=== PATIENT | male | born 1950 | race Caucasian/White ===

== ENCOUNTER 2024-10-31 11:03 | Emergency (ER) | payer OTHER, SELFPAY ==
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
--- NOTE | ~2024-10-31 | XR_ITS ---
XR shoulder LT min 2V 10/31/2024 11:36 Indication: Left shoulder pain Procedure: 4 views left shoulder Comparison: No prior studies for comparison. Findings: No fracture, subluxation or dislocation. No significant soft tissue abnormality. No foreign bodies. There is anatomic alignment. Impression: 1: No acute fracture. Reviewed, dictated and finalized at location A. Impression: 1: No acute fracture.
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
[2024-10-31 11:07] VITALS: BP 169/70; PULSE 84; RESP 16; TEMP 36.6; O2SAT 96
--- OUTSIDE RECORDS SUMMARY | 2024-10-31 11:36 | XMS_ITS | Referral Summary ---
Author Organization [facility] Address [address] [place] [address] Care Team Providers Care Biomass Power Plant Manager Name Role Phone Juan Arzola MD Primary Care Provider [phone] Allergies Active Allergy Reactions Criticality Noted Date Comments Morphine Itching Low 06/28/2020 Medications pregabalin (LYRICA) 150 mg capsule take 1 capsule by oral route 2 times every day 0 0 07/06/20 16 Active Additional Information Patient taking differently:150 mgoral Every 8 hours, Trigeminal neuralgia, Informant: Self, Reported on 05/25/2022 cyclobenzaprine (FLEXERIL) 10 mg tablet Take 10 mg by mouth 3 (three) times a day as needed for muscle spasms Active HYDROcodone-aceta minophen (NORCO) 10-325 mg per tabletIndications :Pain Take 1 tablet by mouth every 6 (six) hours as needed for pain Active metFORMIN (GLUCOPHAGE) 1,000 mg tabletIndications :type 2 diabetes mellitus Take 1,000 mg by mouth 2 (two) times a day with meals Active amLODIPine (NORVASC) 10 mg tabletIndications :hypertension Take 10 mg by mouth every morning Active valsartan (DIOVAN) 320 mg tabletIndications :hypertension Take 320 mg by mouth every morning Active ipratropium-albut Estelle (COMBIVENT RESPIMAT) 20-100 mcg/actuation inhalerIndication s:Chronic Obstructive Pulmonary Disease with Bronchospasms Inhale 1 puff 4 (four) times a day Active albuterol 0.63 mg/3 mL nebulizer solutionIndicatio ns:Chronic Obstructive Pulmonary Disease Take 0.63 mg by nebulization every 6 (six) hours as needed for wheezing Active docusate sodium (COLACE) 100 mg capsuleIndication s:constipation Take 1 capsule (100 mg total) by mouth 2 (two) times a day 60 capsule 06/08/20 22 Active oxyCODONE (ROXICODONE) 10 mg tabletIndications :Pain Take 1 tablet (10 mg total) by mouth every 4 (four) hours 20 tablet 06/09/20 22 Active Active Problems Problem Noted Date Diagnosed Date Pain in left testicle 05/16/2022 Overview (05/16/2022): Added automatically from request for surgery [id number] Other male erectile dysfunction 07/14/2020 Trigeminal neuralgia 10/02/2012 Cervico-occipital neuralgia 10/02/2012 Chronic obstructive pulmonary disease 10/02/2012 Hypertension 10/02/2012 Resolved Problems Problem Noted Date Diagnosed Date Resolved Date Hydrocele 06/09/2020 07/14/2020 Encysted hydrocele 06/09/2020 0 Overview (06/09/2020): Added automatically from request for surgery [id number] Immunizations Immunization Administration Dates Next Due Influenza, Trivalent, IM (MDV) 05/17/2016 Social History Tobacco Use Types Packs/Day Years Used Date Smoking Tobacco: Former Cigarettes Q uit: 2002 Tobacco Cessation:Counseling Given: Not Answered Alcohol Use Standard Drinks/Week Comments No 0 (1 standard drink = 0.6 oz pur e alcohol) AUDIT-C Answer Date Recorded Q1: How often do you have a drink containing alcohol? Never 06/08/2022 Q2: How many drinks containi ng alcohol do you have on a typical day when you are drinking? Patient does not drink Q3: How often do you have si x or more drinks on one occasion? 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 Gender Identity Not on file Sexual Orientation Not on file Last Filed Vital Signs Vital Sign Reading Time Taken Comments Blood Pressure 142/75 06/08/2022 3:05 PM SENIOR MECHANICAL PROJECT ENGINEER Pulse 66 06/08/2022 3:05 PM SENIOR MECHANICAL PROJECT ENGINEER Temperature 36.6 C (97.9 F) 06/08/2022 3:05 PM SENIOR MECHANICAL PROJECT ENGINEER Respiratory Rate 14 06/08/2022 3:05 PM SENIOR MECHANICAL PROJECT ENGINEER Oxygen Saturation 96% 06/08/2022 3:05 PM SENIOR MECHANICAL PROJECT ENGINEER Inhaled Oxygen Concentration - - Weight 96.4 kg (212 lb 9.6 oz) 06/08/2022 8:53 A M SENIOR MECHANICAL PROJECT ENGINEER Height 188 cm (6' 2 ) 06/08/2022 8:53 AM SENIOR MECHANICAL PROJECT ENGINEER Body Mass Index 27.3 06/08/2022 8:53 AM SENIOR MECHANICAL PROJECT ENGINEER Plan of Treatment Not on file Procedures Procedure Name Priority Date/Time Associated Diagnosis Comments CT ABDOMEN PELVIS W CONTRAST ED 04/29/2022 6:12 PM CDT from Last 3 Months or Most Recently Relevant to Health Maintenance Results * CT Abdomen Pelvis W Contrast (04/29/2022 6:12 PM CDT) Anatomical Region Laterality Modality Body N/A Computed Tomogra phy 04/29/2022 7:12 PM CDT Impressions 04/29/2022 7:33 PM CDT 1. Partially imaged penis shows a loose segment of tubing along the right aspect of the base of the penis. Recommend correlation with point tenderness, surgical history, and symptoms. 2. Loose penile implant reservoir in the central abdomen without any evidence of vonnie reservoir inflammation or free fluid. Recommend correlation with outside imaging if available to assess for stability of the reservoir. 3. Reticulosis without areas of active diverticulitis. Dictated by: Parrish Deleon MD The radiology attending physician has personally reviewed this study, and had reviewed and/or edited this written report and agrees with it. Electronically signed by: Angelica Ferro M.D. Narrative 04/29/2022 7:33 PM CDT EXAMINATION: Computed tomography of the abdomen and pelvis with intravenous contrast HISTORY: 71-year-old status post penile implant removal, with groin pain TECHNIQUE: Transaxial computed tomographic images of the abdomen and pelvis were obtained with intravenous contrast according to the standard protocol after the uneventful administration of 94 mL Opti-Ray 350 intravenous contrast. COMPARISON: 05/04/2010 CT, 04/01/2008 CT FINDINGS: Atelectasis at the lung bases. No suspicious pulmonary nodule, pleural effusion, or pneumothorax. Heart size is normal. No pericardial effusion. No focal hepatic lesion. Focal fat near the falciform ligament. Cholecystectomy clips. An splenic veins are patent. Spleen is normal. Fatty replacement of the pancreas. Adrenals are normal. Bilateral parapelvic renal cysts, and one hemorrhagic cyst in the left kidney upper pole. There is no nephrolithiasis or hydronephrosis. Urinary bladder is normal. Prostate is enlarged. Colonic diverticulosis. Areas of stricturing at the rectosigmoid junction and focal areas of dilation at -863.6, unchanged from prior study dated 05/04/2010. No diverticulitis. There is a apparent decompressed penile implant reservoir in the central abdomen at series 2 image 155. There is no surrounding fat stranding or fluid. Bilateral fat-containing inguinal hernias. Partially imaged penis shows a tubing within the right aspect of the penis at series 2 image 254. There is a small hiatal hernia. Stomach and small bowel are normal in caliber without evidence of bowel obstruction. No abdominal or pelvic lymphadenopathy. No pneumoperitoneum Mild to moderate calcified and noncalcified atherosclerotic plaque of the nonaneurysmal abdominal aorta.. Aorta branches are patent.. Appendix is not visualized. No suspicious osseous lesion. Degenerative changes in the spine. Procedure Note Angelica Ferro MD - 04/29/2022 EXAMINATION: Computed tomography of the abdomen and pelvis with intravenous contrast HISTORY: 71-year-old status post penile implant removal, with groin pain TECHNIQUE: Transaxial computed tomographic images of the abdomen and pelvis were obtained with intravenous contrast according to the standard protocol after the uneventful administration of 94 mL Opti-Ray 350 intravenous contrast. COMPARISON: 05/04/2010 CT, 04/01/2008 CT FINDINGS: Atelectasis at the lung bases. No suspicious pulmonary nodule, pleural effusion, or pneumothorax. Heart size is normal. No pericardial effusion. No focal hepatic lesion. Focal fat near the falciform ligament. Cholecystectomy clips. An splenic veins are patent. Spleen is normal. Fatty replacement of the pancreas. Adrenals are normal. Bilateral parapelvic renal cysts, and one hemorrhagic cyst in the left kidney upper pole. There is no nephrolithiasis or hydronephrosis. Urinary bladder is normal. Prostate is enlarged. Colonic diverticulosis. Areas of stricturing at the rectosigmoid junction and focal areas of dilation at -863.6, unchanged from prior study dated 05/04/2010. No diverticulitis. There is a apparent decompressed penile implant reservoir in the central abdomen at series 2 image 155. There is no surrounding fat stranding or fluid. Bilateral fat-containing inguinal hernias. Partially imaged penis shows a tubing within the right aspect of the penis at series 2 image 254. There is a small hiatal hernia. Stomach and small bowel are normal in caliber without evidence of bowel obstruction. No abdominal or pelvic lymphadenopathy. No pneumoperitoneum Mild to moderate calcified and noncalcified atherosclerotic plaque of the nonaneurysmal abdominal aorta.. Aorta branches are patent.. Appendix is not visualized. No suspicious osseous lesion. Degenerative changes in the spine. IMPRESSION: 1. Partially imaged penis shows a loose segment of tubing along the right aspect of the base of the penis. Recommend correlation with point tenderness, surgical history, and symptoms. 2. Loose penile implant reservoir in the central abdomen without any evidence of vonnie reservoir inflammation or free fluid. Recommend correlation with outside imaging if available to assess for stability of the reservoir. 3. Reticulosis without areas of active diverticulitis. Dictated by: Parrish Deleon MD The radiology attending physician has personally reviewed this study, and had reviewed and/or edited this written report and agrees with it. Electronically signed by: Angelica Ferro M.D. Rebeca Vann MD IMG CT PROCEDURES Final Resu lt from Last 3 Months or Most Recently Relevant to Health Maintenance Insurance [place] [employer] COMM[employer]ITY CARE MEDICARE COMMUNITY CARE Member Subscriber Plan / Payer ( fective 1998-Present) Name:Alek Evans Sr. Relation to Subscriber:Self Name:Alek Evans Sr. Payer ID:[id number] Group ID:Not on file Type:[employer] Address: [place] [id number] Care Teams Biomass Power Plant Manager Relationship Specialty Start Date End Date Juan Arzola MD [address] [address] PCP - General Internal Medicine 10/1/22
--- OUTSIDE RECORDS SUMMARY | 2024-10-31 11:36 | XMS_ITS | CONTINUITY OF CARE DOCUMENT ---
Author Name austen boyce Address Unknown Organization [facility] Address [address] [place] [address] Phone [phone] Care Team Providers Care Coldfusion Name Role Phone Oniel BRAR, Rosanne Unavailable [phone] INSURANCE PROVIDERS Payer name Policy type / Coverage type [place] red republican ID [place] MED[place] Medicare [id number]
--- OUTSIDE RECORDS SUMMARY | 2024-10-31 11:36 | XMS_ITS | Continuity of Care Document ---
Author Organization [facility] Address [address] [place] [address] [place] [address] Phone Care Team Providers Care Cna Per Diem Name Role Phone [employer] Unavailable Unavail able Sickchivo, Flavia Unavailable Unavailable Advance Directives Directive Yes / No Effective Date File Name No Information Encounters Encounter Description Practice Location Reason(s) For Visit Diagnoses Date Provider Providers Copied on Encounter [facility], [address], [place], [place], [id number], [place] tel:[phone] [facility] [place] No Information [address] [employer] [address], [address], [place], [place], [id number] , [place]. tel:[phone] Consulting Provider: Flavia Spears, [address] [place] [address], [address]. tel:[phone] Family History Family Member Type Diagnosis Age At Onset No Information Payers Payer name Insurance type Covered republican ID Authoriza tion(s) No Information Social History Type Description Quantity Date Captured Comments Sex Male Smoking Status No Information Chief Complaint And Reason For Visit No Information Reason For Referral Reason For Referral No Information History Of Present Illness Encounter Date Complaint History Of Prese nt Illness No Information Functional Status Date Functional Assessmen t No Information Instructions Date Instruction Additional Infor mation No Information Assessments Type Assessment Date No Information Patient Care Teams Name Effective Dates (start - stop) Status Members No Information
--- OUTSIDE RECORDS SUMMARY | 2024-10-31 11:36 | XMS_ITS | Clinical Summary ---
Author Organization [facility] Address [address] [place] [address] Care Team Providers Care Patent Clerk Name Role Phone Juan Arzola MD Primary Care Provider [phone] Allergies Active Allergy Reactions Criticality Noted Date [...] (05/16/2022): Added automatically from request for surgery [id number] Other male erectile dysfunction 07/14/2020 Trigeminal neuralgia 10/02/2012 Cervico-occipital neuralgia 10/02/2012 Chronic obstructive pulmonary disease 10/02/2012 Hypertension 10/02/2012 Resolved Problems Problem Noted Date Diagnosed Date Resolved Date Hydrocele 06/09/2020 07/14/2020 Encysted hydrocele 06/09/2020 0 Overview (06/09/2020): Added automatically from request for surgery [id number] Immunizations Immunization Administration Dates Next Due Influenza, Trivalent, IM (MDV) 05/17/2016 Surgical History Surgery Date Site/Laterality Comments TRANSURETHRAL RESECTION OF PROSTATE PROSTATE SURGERY APPENDECTOMY HERNIA REPAIR hiatal hernia repair COLONOSCOPY Medical History Medical History Date Comments Hypertension Type 2 diabetes mellitus (HCC) Seizures (HCC) Stroke (HCC) Encysted hydrocele 06/09/2020 Added automat ically from request for surgery [id number] Hydrocele 06/09/2020 Family History Medical History Relation Name Comments Hypertension Mother Hypertension; Anesthesia problems Neg Hx Relation Name Status Comments Mother Social History Tobacco Use Types Packs/Day Years Used Date Smoking Tobacco: Former Cigarettes Q uit: 2001 Tobacco Cessation:Counseling Given: Not Answered Alcohol Use [...] on file Legal Sex Male 12:08 PM 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 Gender Identity Not on file Sexual Orientation Not on file Obstetrics History Last Filed Vital Signs Vital Sign Reading Time Taken Comments Blood Pressure 142/75 06/08/2022 3:05 PM DIE SINKING MACHINE OPERATOR Pulse 66 06/08/2022 3:05 PM DIE SINKING MACHINE OPERATOR Temperature 36.6 C (97.9 F) 06/08/2022 3:05 PM DIE SINKING MACHINE OPERATOR Respiratory Rate 14 06/08/2022 3:05 PM DIE SINKING MACHINE OPERATOR Oxygen Saturation 96% 06/08/2022 3:05 PM DIE SINKING MACHINE OPERATOR Inhaled Oxygen Concentration - - Weight 96.4 kg (212 lb 9.6 oz) 06/08/2022 8:53 A M DIE SINKING MACHINE OPERATOR Height 188 cm (6' 2 ) 06/08/2022 8:53 AM DIE SINKING MACHINE OPERATOR Body Mass Index 27.3 06/08/2022 8:53 AM DIE SINKING MACHINE OPERATOR Plan of Treatment Health Maintenance Due Date Last Done Comments Depression Screening 1950 Hepatitis C Screening 1950 DTaP/Tdap/Td Vaccine (1 - Tdap) 1959 Hepatitis B Screening 1966 Zoster Vaccine (1 of 2) 1998 Well Visit 65+ 2013 Pneumococcal vaccine 65+ (2 of 2 - PPSV23) 08/02/2018 06/07/2018 Fall Risk Assessment 06/08/2023 06/08/2022 Influenza Vaccine (#1) 2024 04/15/2020, 2015 Abdominal Aortic Aneurysm (AAA) Screen Completed Procedures Procedure Name Priority Date/Time Associated Diagnosis [...] Most Recently Relevant to Health Maintenance Insurance MEDICARE [place] [employer] Care Teams Patent Clerk Relationship Specialty Start Date End Date Juan Arzola MD [address] [place] [address] PCP - General Internal Medicine 04/29/22
--- OUTSIDE RECORDS SUMMARY | 2024-10-31 11:36 | XMS_ITS | Encounter Summary ---
Author Organization [facility] Address [address] [place] [address] Phone Care Team Providers Care Ground Service Equipment Mechanic Name Role Phone Juan Arzola MD Primary Care Provider [phone]- [phone] Encounter Details Date Type Department Care Team (Late st Contact Info) Description 08/07/2022 Telephone [facility] Urology [address] [place] [address] Medical Office Building [address] [place] [address] Fide Vazquez Social History Tobacco Use Types Packs/Day Years Used Date Smoking Tobacco: Former Cigarettes Q uit: 2002 Alcohol Use Standard Drinks/Week Comments No 0 [...] on file Legal Sex Male 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
--- OUTSIDE RECORDS SUMMARY | 2024-10-31 11:36 | XMS_ITS | Clinical Summary ---
Author Organization [facility] Address [address] [place] [address] Phone Care Team Providers Care Surgical Services Coordinator Name Role Phone Unavailable Primary Care Provider Unavailabl e Allergies No known active allergies Medications albuterol (PROVENTIL,VENTOL IN) 0.63 mg/3 mL Solution for Nebulization Take 0.63 mg by inhalation. Active amLODIPine (NORVASC) 10 mg tablet Take 10 mg by mouth. Active aspirin (ECOTRIN EC) 81 mg Tablet, Delayed Release (E.C.) 162 mg. 3 Active azithromycin (ZITHROMAX) 250 mg tablet 250 mg. 3 Active Ciclopirox 8 % Solution APPLY LIGHTLY TO AFFECTED AREA(S) ONCE A DAY (THIN COAT TO THICK NAILS - FILE DOWN AFTER 1 WEEK) (EXTERNAL USE ONLY) 3 Active codeine-guaiFENes in (ROBITUSSIN-AC) 10-100 mg/5 mL Liquid TAKE 10 ML BY MOUTH FOUR TIMES A DAY NEEDED FOR COUGH 3 Active cyclobenzaprine (FLEXERIL) 10 mg tablet Take 10 mg by mouth. Active HYDROcodone-aceta minophen (NORCO) 10-325 mg Tablet Take 1 Tablet by mouth 3 times daily. Active metFORMIN (GLUCOPHAGE) 1,000 mg tablet Take 1,000 mg by mouth 2 times daily with meals. Active Active Problems Problem Noted Date Diagnosed Date Non-recurrent bilateral ingu inal hernia without obstruction or gangrene 09/12/2022 Social History Tobacco Use Types Packs/Day Years Used Date Smoking Tobacco: Former Cigarettes Smokeless Tobacco: Never Tobacco Cessation:Counseling Given: Not Answered Alcohol Use Standard Drinks/Week Comments Never 0 (1 standard drink = 0.6 oz pur e alcohol) Food Insecurity Answer Date Recorded Social/Environmental Concerns No concerns Transportation Needs Answer Date Record ed Social/Environmental Concerns No concerns Housing Stability Answer Date Recorded Social/Environmental Concerns No concerns Utility Needs Answer Date Recorded Social/Environmental Concerns No concerns Sex and Gender Information Value Date Recorded Sex Assigned at Not on file Legal Sex Male 11:47 PM CDT Gender Identity Not on file Sexual Orientation Not on file Last Filed Vital Signs Vital Sign Reading Time Taken Comments Blood Pressure 133/70 09/12/2022 3:56 PM RESIDENTIAL SUPPORT WORKER Pulse - - Temperature - - Respiratory Rate 18 08/15/2022 10:29 AM RESIDENTIAL SUPPORT WORKER Oxygen Saturation - - Inhaled Oxygen Concentration - - Weight 98 kg (216 lb) 10/18/2022 1:36 PM CDT Height 188 cm (6' 2 ) 10/18/2022 1:36 PM CDT Body Mass Index 27.73 10/18/2022 1:36 PM CDT Plan of Treatment Health Maintenance Due Date Last Done Comments DIABETES ANNUAL FOOT EXAM 1966 DIABETES HBA1C Q 6 MONTHS 1966 DIABETES MICROALBUMIN ANNUAL SCREEN 1966 LDL CHOLESTEROL ANNUAL 1966 DIABETES ANNUAL RETINAL EXAM 09/08/202204/2022, 09/07/2021, 08/04/2021 RSV VACCINE (60+ or ) (1 - 1-dose 75+ series) 2023 INFLUENZA VACCINE (#1) 2024 , 04/23/2021, 05/15/2019, Additional history exists DTAP/TDAP/TD VACCINES (3 - T d or Tdap) 11/05/2030 11/05/2020, 08/17/2011, 11/19/2001 PNEUMOCOCCAL VACCINE 50+ YEARS Completed 0 11/09/2015, 11/13/2014, 07/30/2004 ZOSTER VACCINE Completed 09/25/2019, 11/27, 11/06/2008 COLORECTAL SCREENING Discontinued 04/18/2022 Colorectal Cancer Screening Discontinued FIT-DNA Q 3 years Discontinued FIT/FOBT Q 1 year Discontinued Flex Sig/CT Colonography Q 5 years Discontinued Insurance [facility] [place] [address] [place] [address] [employer]
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
--- OUTSIDE RECORDS SUMMARY | 2024-10-31 12:09 | XMS_ITS | Continuity of Care Document ---
Author Organization [facility] Address [address] [place] [address] [place] [address] Phone Care Team Providers Care Nail Sticker Name Role Phone [facility] [employer] Unavailable Unavail able Sickchivo, Flavia Unavailable Unavailable Advance Directives Directive Yes / No Effective Date File Name No Information Encounters Encounter Description Practice Location Reason(s) For Visit Diagnoses Date Provider Providers Copied on Encounter [facility], [address], [place], [place], [id number], [place] tel:[phone] [facility] No Information [address] [facility] [employer] [address], [address], [place], [place], [id number] , [place]. tel:[phone] Consulting Provider: Flavia Spears, [address] [place] [address], [address]. tel:[phone] Family History Family Member Type Diagnosis Age At Onset No Information Payers Payer name Insurance type Covered alliance party ID Authoriza tion(s) No Information Social History [...]
--- OUTSIDE RECORDS SUMMARY | 2024-10-31 12:09 | XMS_ITS | Encounter Summary ---
Author Organization [facility] Address [address] [place] [address] Phone Care Team Providers Care Professor Of Kinesiology Name Role Phone Juan Arzola MD Primary Care Provider [phone]- [phone] Encounter Details Date Type Department Care Team (Late st Contact Info) Description 08/07/2022 Telephone [facility]) - [facility] Urology [id number] [place] [address] Medical Office Building [address] [place] [address] Fide Vazquez Social History Tobacco [...] on file Legal Sex Male 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
--- OUTSIDE RECORDS SUMMARY | 2024-10-31 12:09 | XMS_ITS | Clinical Summary ---
Author Organization [facility] Address [address] [place] [address] Phone Care Team Providers Care Bulk Gas Specialist Name Role Phone Unavailable Primary Care Provider [...] Comments Blood Pressure 133/70 09/12/2022 3:56 PM LAW OFFICE MANAGER Pulse - - Temperature - - Respiratory Rate 18 08/15/2022 10:29 AM LAW OFFICE MANAGER Oxygen Saturation - - Inhaled Oxygen Concentration [...] Q 5 years Discontinued Insurance [facility] COMMUNITY C[facility] [place] [address] [place] [address] OPT[place]
--- OUTSIDE RECORDS SUMMARY | 2024-10-31 12:09 | XMS_ITS | CONTINUITY OF CARE DOCUMENT ---
Author Name austen boyce Address Unknown Organization [facility] Address [address] [place] [address] Phone [phone] Care Team Providers Care Baker Name Role Phone Oniel BRAR, Rosanne Unavailable INSURANCE PROVIDERS Payer name Policy type / Coverage type [place] [employer] ID [place] MEDIC[place] Medicare [id number]
--- OUTSIDE RECORDS SUMMARY | 2024-10-31 12:09 | XMS_ITS | Clinical Summary ---
Author Organization [facility] Address [address] [place] [address] Care Team Providers Care It Infrastructure Specialist Name Role Phone Juan Arzola MD Primary Care Provider [phone]- [phone] Allergies Active Allergy Reactions Criticality Noted Date [...] (05/16/2022): Added automatically from request for surgery [id number] Other male erectile dysfunction 07/14/2020 Trigeminal neuralgia 10/02/2012 Cervico-occipital neuralgia 10/02/2012 Chronic obstructive pulmonary disease 10/02/2012 Hypertension 10/02/2012 Resolved Problems Problem Noted Date Diagnosed Date Resolved Date Hydrocele 06/09/2020 07/14/2020 Encysted hydrocele 06/09/2020 0 Overview (06/09/2020): Added automatically from request for surgery [id number] Immunizations Immunization Administration Dates Next Due Influenza, Trivalent, IM (MDV) 05/17/2016 Surgical History Surgery Date Site/Laterality Comments TRANSURETHRAL RESECTION OF PROSTATE PROSTATE SURGERY APPENDECTOMY HERNIA REPAIR hiatal hernia repair COLONOSCOPY Medical History Medical History Date Comments Hypertension Type 2 diabetes mellitus (HCC) Seizures (HCC) Stroke (HCC) Encysted hydrocele 06/09/2020 Added automat ically from request for surgery [id number] Hydrocele 06/09/2020 Family History Medical History Relation [...] on file Legal Sex Male 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 Gender Identity Not on file Sexual Orientation Not on file Obstetrics History Last Filed Vital Signs Vital Sign Reading Time Taken Comments Blood Pressure 142/75 06/08/2022 3:05 PM EMERGENCY DEPARTMENT TECHNICIAN Pulse 66 06/08/2022 3:05 PM EMERGENCY DEPARTMENT TECHNICIAN Temperature 36.6 C (97.9 F) 06/08/2022 3:05 PM EMERGENCY DEPARTMENT TECHNICIAN Respiratory Rate 14 06/08/2022 3:05 PM EMERGENCY DEPARTMENT TECHNICIAN Oxygen Saturation 96% 06/08/2022 3:05 PM EMERGENCY DEPARTMENT TECHNICIAN Inhaled Oxygen Concentration - - Weight 96.4 kg (212 lb 9.6 oz) 06/08/2022 8:53 A M EMERGENCY DEPARTMENT TECHNICIAN Height 188 cm (6' 2 ) 06/08/2022 8:53 AM EMERGENCY DEPARTMENT TECHNICIAN Body Mass Index 27.3 06/08/2022 8:53 AM EMERGENCY DEPARTMENT TECHNICIAN Plan of Treatment Health Maintenance Due Date [...] Recently Relevant to Health Maintenance Insurance [place]ICARE [place] Care Teams It Infrastructure Specialist Relationship Specialty Start Date End Date Juan Arzola MD [address] [place] [address] PCP - General Internal Medicine 04/29/22
--- OUTSIDE RECORDS SUMMARY | 2024-10-31 12:09 | XMS_ITS | Referral Summary ---
Author Organization [facility] Address [address] [place] [address] Care Team Providers Care Inspector Circuitry Negative Name Role Phone Juan Arzola MD Primary Care Provider [phone]- [phone] Allergies Active Allergy Reactions Criticality Noted Date [...] (05/16/2022): Added automatically from request for surgery [id number] Other male erectile dysfunction 07/14/2020 Trigeminal neuralgia 10/02/2012 Cervico-occipital neuralgia 10/02/2012 Chronic obstructive pulmonary disease 10/02/2012 Hypertension 10/02/2012 Resolved Problems Problem Noted Date Diagnosed Date Resolved Date Hydrocele 06/09/2020 07/14/2020 Encysted hydrocele 06/09/2020 0 Overview (06/09/2020): Added automatically from request for surgery [id number] Immunizations Immunization Administration Dates Next Due Influenza, [...] on file Legal Sex Male 12:08 PM COMMUNITY OUTREACH SPECIALIST Gender Identity Not on file Sexual Orientation Not on file Last Filed Vital Signs Vital Sign Reading Time Taken Comments Blood Pressure 142/75 06/08/2022 3:05 PM COMMUNITY OUTREACH SPECIALIST Pulse 66 06/08/2022 3:05 PM COMMUNITY OUTREACH SPECIALIST Temperature 36.6 C (97.9 F) 06/08/2022 3:05 PM COMMUNITY OUTREACH SPECIALIST Respiratory Rate 14 06/08/2022 3:05 PM COMMUNITY OUTREACH SPECIALIST Oxygen Saturation 96% 06/08/2022 3:05 PM COMMUNITY OUTREACH SPECIALIST Inhaled Oxygen Concentration - - Weight 96.4 kg (212 lb 9.6 oz) 06/08/2022 8:53 A M COMMUNITY OUTREACH SPECIALIST Height 188 cm (6' 2 ) 06/08/2022 8:53 AM COMMUNITY OUTREACH SPECIALIST Body Mass Index 27.3 06/08/2022 8:53 AM COMMUNITY OUTREACH SPECIALIST Plan of Treatment Not on file Procedures [...] Most Recently Relevant to Health Maintenance Insurance [place] [employer] [employer] COMM[place]ITY CARE MEDICARE COMMUNITY CARE Member Subscriber Plan / Payer ( fective 1998-Present) Name:Alek Evans Sr. Relation to Subscriber:Self Name:Alek Evans Sr. Payer ID:[id number] Group ID:Not on file Type:[employer] Address: [place] [id number] Care Teams Inspector Circuitry Negative Relationship Specialty Start Date End Date Juan Arzola MD [address] [place] [address] PCP - General Internal Medicine 10/1/22
== END 2024-10-31 13:55 | disposition home or self-care (01) ==
PROVIDERS: Emergency Provider Physician Assistant
DX: S22.42XA Multiple fractures of ribs, left side, initial encounter for closed fracture (principal); S16.1XXA Strain of muscle, fascia and tendon at neck level, initial encounter; S46.912A Strain of unspecified muscle, fascia and tendon at shoulder and upper arm level, left arm, initial encounter; N28.9 Disorder of kidney and ureter, unspecified; Z79.82 Long term (current) use of aspirin; M47.812 Spondylosis without myelopathy or radiculopathy, cervical region; M47.814 Spondylosis without myelopathy or radiculopathy, thoracic region; G93.89 Other specified disorders of brain; J43.9 Emphysema, unspecified; V43.53XA Car driver injured in collision with pick-up truck in traffic accident, initial encounter
CPT/HCPCS: 70450; 71250; 72125; 72128; 73030; 99284

== ENCOUNTER 2024-11-02 10:42 | Emergency (ER) | payer SELFPAY ==
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
--- OUTSIDE RECORDS SUMMARY | 2024-11-02 10:45 | XMS_ITS | Continuity of Care Document ---
Author Organization [facility] Address [address] [place] [address] [place] [address] Phone Care Team Providers Care Tower Attendant Name Role Phone [facility] [employer] Unavailable Unavail able Sickchivo, Flavia Unavailable Unavailable Advance Directives Directive Yes / No Effective Date File Name No Information Encounters Encounter Description Practice Location Reason(s) For Visit Diagnoses Date Provider Providers Copied on Encounter [facility], [address], [place], [place], [id number], [place] tel:[phone] [facility] [place] No Information [address] [facility] [address] [facility], [address], [place], [place], [id number] , [place]. tel:[phone] Consulting Provider: Flavia Spears, [address] [place] [address], [address]. tel:[phone] Family History Family Member Type Diagnosis Age [...]
--- OUTSIDE RECORDS SUMMARY | 2024-11-02 10:45 | XMS_ITS | Encounter Summary ---
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
--- OUTSIDE RECORDS SUMMARY | 2024-11-02 10:45 | XMS_ITS | CONTINUITY OF CARE DOCUMENT ---
Author Name austen boyce Address Unknown Organization [facility] Address [address] [facility] [address] [place] [address] Phone [phone] Care Team Providers Care Director Building Name Role Phone Oniel BRAR, Rosanne Unavailable INSURANCE PROVIDERS Payer name Policy type / Coverage type [place] red democrat ID [place] MED[place] Medicare [id number]
--- OUTSIDE RECORDS SUMMARY | 2024-11-02 10:45 | XMS_ITS | Referral Summary ---
Author Organization [facility] Address [address] [place] [address] Care Team Providers Care Cad Technician Name Role Phone Juan Arzola MD Primary Care Provider [phone]- [phone] Allergies Active Allergy Reactions Criticality Noted Date [...] (05/16/2022): Added automatically from request for surgery [id number] Other male erectile dysfunction 07/14/2020 Trigeminal neuralgia 10/02/2012 Cervico-occipital neuralgia 10/02/2012 Chronic obstructive pulmonary disease 10/02/2012 Hypertension 10/02/2012 Resolved Problems Problem Noted Date Diagnosed Date Resolved Date Hydrocele 06/09/2020 07/14/2020 Encysted hydrocele 06/09/2020 0 Overview (06/09/2020): Added automatically from request for surgery [id number] Immunizations Immunization Administration Dates Next Due Influenza, [...] on file Legal Sex Male 12:08 PM DIRECTOR PHARMACOLOGY Gender Identity Not on file Sexual Orientation Not on file Last Filed Vital Signs Vital Sign Reading Time Taken Comments Blood Pressure 142/75 06/08/2022 3:05 PM DIRECTOR PHARMACOLOGY Pulse 66 06/08/2022 3:05 PM DIRECTOR PHARMACOLOGY Temperature 36.6 C (97.9 F) 06/08/2022 3:05 PM DIRECTOR PHARMACOLOGY Respiratory Rate 14 06/08/2022 3:05 PM DIRECTOR PHARMACOLOGY Oxygen Saturation 96% 06/08/2022 3:05 PM DIRECTOR PHARMACOLOGY Inhaled Oxygen Concentration - - Weight 96.4 kg (212 lb 9.6 oz) 06/08/2022 8:53 A M DIRECTOR PHARMACOLOGY Height 188 cm (6' 2 ) 06/08/2022 8:53 AM DIRECTOR PHARMACOLOGY Body Mass Index 27.3 06/08/2022 8:53 AM DIRECTOR PHARMACOLOGY Plan of Treatment Not on file Procedures [...] Most Recently Relevant to Health Maintenance Insurance [place] [employer] COMMUNITY CARE MEDICARE COMMUNITY CARE Member Subscriber Plan / Payer ( fective 1998-Present) Name:Alek Evans Sr. Relation to Subscriber:Self Name:Alek Evans Sr. Payer ID:[id number] Group ID:Not on file Type:GroupCard Address: [place] [id number] Care Teams Cad Technician Relationship Specialty Start Date End Date Juan Arzola MD [address] [place] [address] PCP - General Internal Medicine 10/1/22
--- OUTSIDE RECORDS SUMMARY | 2024-11-02 10:45 | XMS_ITS | Clinical Summary ---
Author Organization [facility] Address [address] [place] [address] Phone Care Team Providers Care Link Machine Operator Name Role Phone Unavailable Primary Care Provider [...] Comments Blood Pressure 133/70 09/12/2022 3:56 PM PATCHER HELPER Pulse - - Temperature - - Respiratory Rate 18 08/15/2022 10:29 AM PATCHER HELPER Oxygen Saturation - - Inhaled Oxygen Concentration [...] Sig/CT Colonography Q 5 years Discontinued Insurance [facility] OFFICE OF COMMUNITY CARE [facility] [address] [place] [address] [address]
--- OUTSIDE RECORDS SUMMARY | 2024-11-02 10:45 | XMS_ITS | Clinical Summary ---
Author Organization [facility] Address [address] [place] [address] Care Team Providers Care Tool/Die Maker Name Role Phone Juan Arzola MD Primary Care Provider [phone]- [phone] Allergies Active Allergy Reactions Criticality Noted Date [...] (05/16/2022): Added automatically from request for surgery [id number] Other male erectile dysfunction 07/14/2020 Trigeminal neuralgia 10/02/2012 Cervico-occipital neuralgia 10/02/2012 Chronic obstructive pulmonary disease 10/02/2012 Hypertension 10/02/2012 Resolved Problems Problem Noted Date Diagnosed Date Resolved Date Hydrocele 06/09/2020 07/14/2020 Encysted hydrocele 06/09/2020 0 Overview (06/09/2020): Added automatically from request for surgery [id number] Immunizations Immunization Administration Dates Next Due Influenza, Trivalent, IM (MDV) 05/17/2016 Surgical History Surgery Date Site/Laterality Comments TRANSURETHRAL RESECTION OF PROSTATE PROSTATE SURGERY APPENDECTOMY HERNIA REPAIR hiatal hernia repair COLONOSCOPY Medical History Medical History Date Comments Hypertension Type 2 diabetes mellitus (HCC) Seizures (HCC) Stroke (HCC) Encysted hydrocele 06/09/2020 Added automat ically from request for surgery [id number] Hydrocele 06/09/2020 Family History Medical History Relation [...] on file Legal Sex Male 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 Gender Identity Not on file Sexual Orientation Not on file Obstetrics History Last Filed Vital Signs Vital Sign Reading Time Taken Comments Blood Pressure 142/75 06/08/2022 3:05 PM HEEL EDGE 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 Pulse 66 06/08/2022 3:05 PM HEEL EDGE 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 Temperature 36.6 C (97.9 F) 06/08/2022 3:05 PM HEEL EDGE 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 Respiratory Rate 14 06/08/2022 3:05 PM HEEL EDGE 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 Oxygen Saturation 96% 06/08/2022 3:05 PM HEEL EDGE 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 Inhaled Oxygen Concentration - - Weight 96.4 kg (212 lb 9.6 oz) 06/08/2022 8:53 A M HEEL EDGE 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 Height 188 cm (6' 2 ) 06/08/2022 8:53 AM HEEL EDGE 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 Body Mass Index 27.3 06/08/2022 8:53 AM HEEL EDGE 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 Plan of Treatment Health Maintenance Due Date [...] Recently Relevant to Health Maintenance Insurance MEDICARE [place] Care Teams Tool/Die Maker Relationship Specialty Start Date End Date Juan Arzola MD [address] [place] [address] PCP - General Internal Medicine 04/29/22
[2024-11-02 11:21] VITALS: BP 175/75; PULSE 102; RESP 16; TEMP 36.1; O2SAT 95
--- OUTSIDE RECORDS SUMMARY | 2024-11-02 11:51 | XMS_ITS | Encounter Summary ---
Author Name [facility] Address [address] [place] [address] Care Team Providers Care Cds Sales Advisor Name Role Phone NATALIO BRDIGES Primary Care Provider Unavail le Insurance Providers: All historical and current Section Date Range: From patient's date of to the date document was created. This section includes the names of all active insurance providers for the patient. Insurance Provider Type of Coverage Plan Name Start of Policy Coverage End of Policy Coverage Group Number Member ID Insurance Provider's Telephone Number Policy Cabello's Name Patient's Relationship to Policy Cabello MEDICARE (WNR) MEDICARE ([place]) PART B Oct 28, 2001 PART B [id number] [phone] Petra DUQUE PATIENT MEDICARE (WNR) MEDICARE (M) PART A Oct 28, 2001 PART A [id number] [phone] Petra DUQUE PATIENT MEDICARE (WNR) MEDICARE (M) PART A Oct 28, 2001 PART A [id number] [phone] Petra DUQUE PATIENT Selected Encounter This section includes the information on record at [place] for the Encounter. Date/Time Encounter Type Encounter Description Reason Provider Source Feb 11, 2024 10:00 AM COMPRE OPH EXAM EST PT 1/> OPTOMETRY ICD-10-CM H43.813 Vitreous degeneration, bilateral BRYANNAFERSSAYDAIS ON [facility] Encounter Template Text not used by [facility] Assessments - Encounter Diagnoses This section includes the primary and secondary diagnoses documented for the Encounter. Date/Time Primary/Secondary Diagnosis Diagnosis Name Provider Source Feb 11, 2024 03:45 PM PRIMARY Vitreous degeneration, bilateral IVN TO ON [facility] Feb 11, 2024 03:45 PM SECONDARY Age-related nuclear cataract, bilateral SCHAFERSALLIS ON [facility] Feb 11, 2024 03:45 PM SECONDARY Dry eye syndrome of bilateral lacrimal glands VIN TO ON [facility] Feb 11, 2024 03:45 PM SECONDARY Presbyopia VIN TO ON [facility] Feb 11, 2024 03:45 PM SECONDARY Round hole, left eye VIN TO ON [facility] Feb 11, 2024 03:45 PM SECONDARY Type 2 diabetes mellitus without complications VIN TO ON [facility] Plan of Treatment: Future Appointments (+ 6 months) and Future Tests (+/- 45 days) The Plan of Treatment section includes future care activities for the patient from all [place] treatmentfacilities. This section includes future appointments and future orders which are active, pending or scheduled. Future Appointments This section includes appointments that were scheduled to occur 6 months from the date of the Encounter, up to a maximum of 20 appointments. The data comes from all [place] treatment facilities. Appointment Date/Time Appointment Type Appointme nt Facility Name Feb 22, 2024 10:30 AM AMBULATORY - MEDICINE [facility] Feb 27, 2024 08:15 AM AMBULATORY - MEDICINE [facility] Mar 26, 2024 11:00 AM AMBULATORY - NONE . [facility] Mar 27, 2024 12:40 PM AMBULATORY - MEDICINE [facility] Apr 10, 2024 10:30 AM AMBULATORY - SURGERY . [facility] Apr 22, 2024 10:00 AM AMBULATORY - SURGERY [facility] May 02, 2024 09:00 AM AMBULATORY - NONE . [facility] May 06, 2024 03:30 PM AMBULATORY - MEDICINE [facility] May 19, 2024 11:00 AM AMBULATORY - MEDICINE [facility] May 22, 2024 09:30 AM AMBULATORY - SURGERY [facility] May 27, 2024 09:30 AM AMBULATORY - NONE . [facility] Jul 11, 2024 02:00 PM AMBULATORY - NONE [facility] Aug 07, 2024 07:30 AM AMBULATORY - NONE [facility] Active, Pending, and Scheduled Orders This section includes a listing of several types of active, pending, and scheduled orders, including clinic medications orders, diagnostic test orders, procedure orders and consult orders; where the start date of the order is 45 days before the date of the Encounter or 45 days after the date of theEncounter. The data comes from all [place] treatment facilities. Test Date/Time Test Type Test Details Facility Name Jan 15, 2024 12:00 AM Laboratory - Chemistry Order HGA 1C BLOOD [facility] Jan 15, 2024 12:00 AM Laboratory - Chemistry Order CBC BLOOD [facility] Social History: Smoking Status (Most current) and Tobacco Use (All prior to encounter date) This section includes the most current, and the historical, smoking and tobacco- related health factors from the [place] facility where the Encounter took place. Current Smoking Status This section includes the most current smoking, or tobacco-related health factor, from the [place] facility where the Encounter took place. Date/Time Current Smoking Status Comment Facil ity Oct 17, 2023 04:53 PM ORYX ADMIT TOBACCO SCREEN NO [facility] Tobacco Use History This section includes a history of the smoking, or tobacco-related health factors, that were collected on or before the date of the Encounter. The data comes from the [place] facility where the Encounter took place. Date/Time Smoking Status/Tobacco Use Comment F acility Oct 17, 2023 03:00 PM ORYX ADMIT TOBACCO SCREEN NO [facility] Dec 31, 2021 03:07 PM ORYX ADMIT TOBACCO SCREEN NO [facility] Apr 06, 2017 11:33 PM QUIT TOBACCO >7 YEARS AGO [facility] Mar 21, 2017 04:29 AM QUIT TOBACCO >7 YEARS AGO [facility] Jan 20, 2014 09:56 AM QUIT TOBACCO >7 YEARS AGO [facility] Jan 02, 2013 01:23 PM QUIT TOBACCO >7 YEARS AGO [facility] May 25, 2010 01:35 PM LIFETIME NON-USER OF TOBACCO [facility] Aug 17, 2009 01:04 PM QUIT TOBACCO >12 M O & <7 YRS AGO [facility] Sep 17, 2008 01:34 PM QUIT TOBACCO >12 M O & <7 YRS AGO [facility] Sep 20, 2006 10:57 AM QUIT TOBACCO >12 M O & <7 YRS AGO [facility] Jun 05, 2006 10:49 AM CURRENT NON-TOBACC O USER-HX OF USE [facility] Jun 05, 2006 10:49 AM TOBACCO TERMINATION STAGE [facility] Jul 14, 2005 11:00 AM CURRENT NON-TOBACC O USER-HX OF USE [facility] Jul 14, 2005 11:00 AM TOBACCO TERMINATION STAGE [facility] Oct 23, 2004 04:56 PM CURRENT NON-TOBACC O USER-HX OF USE [facility] Oct 23, 2004 04:56 PM TOBACCO ACTION STAGE [facility] Apr 07, 2004 10:58 AM CURRENT NON-TOBACC O USER-HX OF USE [facility] Apr 07, 2004 10:58 AM TOBACCO MAINTENANCE STAGE [facility] December 18, 2002 11:17 AM CURRENT TOBACCO USER [facility] December 18, 2002 11:17 AM TOBACCO USE [facility] Apr 07, 2002 02:25 PM CURRENT NON-TOBACC O USER-RECENTLY QUIT quit 3 mo ago [facility] Apr 07, 2002 02:25 PM TOBACCO USE quit 3 mo ago [facility] Nov 19, 2001 10:50 AM CURRENT TOBACCO USER [facility] Jul 16, 2001 08:35 AM CURRENT TOBACCO USER [facility] Jun 18, 2001 08:31 AM CURRENT TOBACCO USER [facility] Jun 18, 2001 08:31 AM TOBACCO USE [facility] Advance Directives: All historical and current Section Date Range: From patient's date of to the date document was created. This section includes ALL of a patient's completed or amended [place] Advance and Rescinded Directives. The entries below indicate that a directive exists for the patient, but an actual copy is not included with this document. The data comes from all [place] facilities. Date Advance Directives Provider Source Feb 18, 2018 ADVANCE DIRECTIVE DISCUSSION EMMETT CAMILO [facility] Radiology Reports: +/- 30 days of the encounter Radiology Reports For cases when an order for radiology services may have been completed prior to the date of the Encounter, the report list includes the Radiology Reports that were completed up to 30 days before dateof the Encounter. For cases when an order for radiology services may have been completed after the date of the Encounter, the report list also includes the Radiology Reports that were completed up to30 days after date of the Encounter. The data comes from all [place] treatment facilities. Date/Time Radiology Report Provider Source Jan 14, 2024 07:59 AM [place] MYOCARDIAL P SP ECT STRESS/REST-P: MAURILIO DUQUE [id number] -[id number] M Ex Date: JAN 14, 2024@07:59 Req Phys: JEANNETTE PEÑA Loc: [facility] (Req'g Img Loc: [facility] Service: [address] [address] (Case 180 COMPLETE) [place] MYOCARDIAL PERF SPECT STRESS/R([place] Detailed) CPT:27053 Reason for Study: CHEST PAIN (Case 181 COMPLETE) TC-99M TETROFOSMIN (MYOVIEW) ([place] Detailed) CPT:A9502 (Case 182 COMPLETE) TC-99M TETROFOSMIN (MYOVIEW), PE([place] Detailed) CPT:A9502 (Case 183 COMPLETE) NON-HEU TC-99M ADD-ON PER STUDY D([place] Detailed) CPT:Q9969 (Case 347 COMPLETE) REGADENOSON INJECTION ([place] Detailed) CPT:J2785 Clinical History: CHEST PAIN Report Status: Verified Date Reported: JAN 14, 2024 Date Verified: JAN 14, 2024 Full Time E-Sig:/ES/Bill Fox MD,PhD Report: PATIENT NAME: MAURILIO DUQUE CASE #: [id number], [id number], [id number], [id number], [id number] EXAMINATION: Rest/Lexiscan Stress Gated SPECT Myocardial Imaging HISTORY: 73-year-old male with history of chest discomfort TECHNIQUE: A dose of 10.5 mCi Tc-99m tetrofosmin was administered IV at rest, and SPECT myocardial imaging was performed in the supine position. Lexiscan administration was performed under physician supervision. Cardiology will report on EKG findings and patient's stress tolerance. A dose of 31.3 mCi Tc-99m tetrofosmin was administered IV at peak stress, and gated SPECT myocardial imaging was performed in the supine position. Non-gated prone stress imaging was also performed. COMPARISON: 07/11/2021 FINDINGS: The image quality is technically excellent with no significant patient motion or unusual soft tissue attenuation. The left ventricle is normal in size at stress and rest. The stress SPECT images show a normal pattern of myocardial perfusion. There is no significant change on rest imaging.. The gated images demonstrate normal myocardial thickening and normal wall motion. The calculated left ventricular ejection fraction is 71%. Impression: 1. Normal SPECT myocardial imaging without evidence of stress-induced ischemia. 2. Normal left ventricle contractility with LVEF of 71%. Diagnostic code: 1000. Dictated by Ashwin Chacon DO (supervisor residential) IBill, have reviewed the images and report and concur with these findings. Primary Interpreting Staff: Bill Fox MD,PhD, Nuclear Medicine Physician (Full Time) Primary Interpreting Resident: ASHWIN CHACON, supervisor residential /[facility] Encounter Notes: All associated encounter notes This section contains the clinical notes associated to the Encounter. Date/Time Encounter Note(s) Provider Source Feb 11, 2024 09:59 AM OPTOMETRY NOTE: LOCAL TITLE: OPTOMETRY NOTE STANDARD TITLE: OPTOMETRY NOTE DATE OF NOTE: FEB 11, 2024@09:59 ENTRY DATE: FEB 11, 2024@09:59:21 AUTHOR: BALTAZAR TO COSIGNER: URGENCY: STATUS: COMPLETED Last seen: 09/07/21 Reason for visit: ocular health exam CC: 1. hx of PVD OD still notes flaoters, very rare flash longstanding overall stable 2. Vision is fluctuates per pt gets blurry distance and near with habitual glasses 3. Type 2 Diabetic Dx'd: ~2017 bg control stable per pt no history of retinpoathy Ocular Meds: (+) Refresh BID OU Ocular ROS: (+) Operculated retinal hole OS (+) Immature cataract OU (+) OS cyst removal x 07/2021 *chronic, gradually enlarging cyst *Exam consistent with keratin cysts Family OcHX: (-) blindness (-) glaucoma (-) AMD (-) RD Problem list, medications and allergies reviewed: CPRS Serology for Diabetes GLUCOSE 136 H mg/dL 01/11/2024 09:10 HGA1C 5.8 % 09/12/2022 11:13 Cardiovascular BP: 155/75 (01/03/2024 09:54) Pulse: 73 (01/03/2024 09:54) VISUAL ACUITY: With Correction, Distance Visual Acuity OD: 20/40 OS: 20/20- Pupils: PERRL OU (-)APD Confrontation: FTFC OU Extra-Ocular Muscles: Full OU Externals/Adnexa: Unremarkable OU Manifest Refraction: 08/04/21, see acuity above for today's vision OD: plano -1.00 x108 20/20 OS: +1.00 -1.75 x080 20/20 Add: +2.50 Refraction 02/11/24 OD: +0.75 -1.00 x115 20/20- OS: +0.75 -2.00 x085 20/20-1 Add: +2.50 SLIT LAMP EXAMINATION Lids/Lashes/Lacrimal mild MGD OU, saponification OU thin tear pantoja OU Conjunctiva/Sclera White/quiet OU Cornea tr diffuse inferior SPK OU Ant Chamber Deep and quiet OU Iris Normal, (-)NVI OU Lens Gr 1-2 NS cataract OU Intraocular Pressure History (Fluress/Goldmann): Date OD OS Time Meds 11/15/2020 19 18 0928 none 08/04/21 17 16 1254 none 09/07/21 16 16 1002 none 02/11/24 16 16 1016 none Additional testing: OCT MACULA: 08/04/21 OD: normal foveal contour, no SRF/IRF OS: normal foveal contour, mild VMA, no SRF/IRF RETINAL EVALUATION: dilation warning, both eyes, 1% Tropicamide and 2.5% Phenylephrine 09/07/21 Optic Nerve: OD: 0.20 CDR Flat, pink, distinct (-)NVD OS: 0.30 CDR Flat, pink, distinct (-)NVD Vessels: 2/3 OU, (-)NVE OU Macula: OD: Flat, clear (-)CSME OS: Flat, clear (-)CSME Periphery: OD: Flat and attached OS: Flat and attached, small operculated hole ~4-5 oclock, no fluid Vitreous: (+)PVD OD, (+)Syneresis OS Assessment/Plan: 02/11/2024 1.Vitreous Degeneration OU - hx of PVD OD - pt reports floaters, has longstanding rare flash OD, stable per pt - no holes/tears/detachments noted on exam OU today - reviewed signs/symptoms of RD - increase in floaters, flashes, curtain - advised pt to return immediately if notes - monitor with annual DFE 2. Operculated Retinal Hole, OS - Longstanding - No fluid noted today - Retina intact 360 OS - ed. pt on signs/symptoms of RD - pt to return immediately if notes - monitor with annual DFE 3. Diabetes without retinopathy, OU - last hgA1c was 5.8 - (-)DME OU - advised pt on importance of tight bg control - follow with annual DFE 4. s/p Cyst removal, OS - Last seen with Oculoplastics 09/08/21 - Next appt scheduled 09/08/21 - Continue all f/u's with Oculoplastics 5. Dry Eye Syndrome OU - current treatment: refresh - Continue Refresh ATs BID-QID OU - montior 6. Cataracts, OU - Not visually significant - ed. pt on findings - monitor 7. Presbyopia and refractive error, OU - increase in BVA with refraction - order new glasses Educate and monitor, discussed all exam findings RTC: 12 months with CEE, sooner with changes /es/ BALTAZAR TO, OD Staff Physician, Optometry Signed: 02/11/2024 15:45 BALTAZAR TO [facility]
--- OUTSIDE RECORDS SUMMARY | 2024-11-02 11:51 | XMS_ITS | Continuity of Care Document ---
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 It does not include entries that were removed or entered in error. Problem Status Onset Date Problem Type Date of Resolution Comments Source Benign essential hypertension (SNOMED CT 6814688) Active Condition [facility] Candidiasis of the esophagus Active Condition [facility] Cervicalgia Active Condition [facility] Chest pain Active Condition [facility] Chronic obstructive lung disease (SNOMED CT 32285417) Active Condition [facility] Diabetes Mellitus Type 2 ([facility] 04193152) Active Condition [facility] Exposure to potentially hazardous substance Active Condition [facility] GERD - Gastro-esophagea l reflux disease (SNOMED CT 818455119) Active Condition [facility] Hip joint pain Active Condition [facility] Inguinal hernia Active Condition Aug 26, 2021 Entered By: NATALIO BRIDGES Comment: right sided. [facility] Inguinal hernia Active Condition [facility] Intention tremor Active Condition [facility] Knee pain (SNOMED CT 13902312) Active Condition [facility] LBP - Low back pain (SNOMED CT 937260862) Active Condition [facility] Left trigeminal neuralgia (SNOMED CT 6595400819694391 3) Active Condition Oct 24, 2007 En tered By: BRYAN PURVIS Comment: s/p gamaknife surgery [facility] Long-term current use of opiate analgesic drug Active Condition [facility] Migraine Active Condition [facility] Multiple solar keratoses Active Condition [facility] Orchitis and epididymitis Active Condition [facility] Parotitis Active Condition [facility] Scrotal pain Active Condition [facility] Acute sinusitis (ICD-9-CM 461.9) Inactive Condition 08/17/2011 [facility] Allergic Rhinitis Inactive Condition 06/30/2021 [facility] AVM -of cerebellar vessels-s/p surgery X6 Inactive Condition 06/30/2021 [facility] CAD with H/o MA in 1988 , No intervention done Inactive Condition 06/30/2021 [facility] Elevated PSA Inactive Condition 06/30/2021Sep Entered By: BRYAN PURVIS Comment: beningn biopsies in 2008 Entered By: BRYAN PURVIS Comment: S/P TURP in 12/05 [facility] Herpes Zoster 04/2014 Inactive Condition 11/13/2014 [facility] Hyperglycemia * (ICD-9-CM 790.6) Inactive Condition 06/30/2021 [facility] 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) Inactive Condition 06/30/2021 [facility] Plantar fasciitis (SNOMED CT 090086109) Inactive Condition 06/30/2021 [facility] Postherpetic neuralgia (SNOMED CT 9588309) Inactive Condition 06/30/2021 Nov 13, 2014 En tered By: BRYAN PURVIS Comment: herpes zoter 04/2014 [facility] Reading disorder (DSM-IV 315.00/ICD-9-CM 315.00) Inactive Condition 06/30/2021 December 13, 2009 En tered By: SUE HAMILTON Comment: See 12/06/2009 Neuropsychological Testing Consult [facility] Diagnosis: ICD-10-CM J44.9 Chronic obstructive pulmonary disease, unspecified Active Diagnosis [facility] Diagnosis: ICD-10-CM K02.52 Dental caries on pit and fissure surfc penetrat into dentin Active Diagnosis [facility] Diagnosis: ICD-10-CM Z01.20 Encounter for dental exam and cleaning w/o abnormal findings Active Diagnosis [facility] Diagnosis: ICD-10-CM K02.7 Dental root caries Active Diagnosis [facility] Diagnosis: ICD-10-CM I10 Essential (primary) hypertension Active Diagnosis [facility] Diagnosis: ICD-10-CM K40.90 Unil inguinal hernia, w/o obst or gangr, not spcf as recur Active Diagnosis [facility] Admit Reason: S/P ROBTIC INJUINAL HERNIA Active Diagnosis [facility] Diagnosis: ICD-10-CM K40.91 Unilateral inguinal hernia, w/o obst or gangrene, recurrent Active Diagnosis [facility] Diagnosis: ICD-10-CM Z01.818 Encounter for other preprocedural examination Active Diagnosis [facility] Diagnosis: ICD-10-CM R42 Dizziness and giddiness Active Diagnosis [facility] Diagnosis: ICD-10-CM R06.02 Shortness of breath Active Diagnosis [facility] Diagnosis: ICD-10-CM H43.813 Vitreous degeneration, bilateral Active Diagnosis [facility] Diagnosis: ICD-10-CM R07.9 Chest pain, unspecified Active Diagnosis [facility] Diagnosis: ICD-10-CM I20.9 Angina pectoris, unspecified Active Diagnosis [facility] Diagnosis: ICD-10-CM B35.1 Tinea unguium Active Diagnosis [facility] Diagnosis: ICD-10-CM N50.82 Scrotal pain Active Diagnosis [facility] Diagnosis: ICD-10-CM R11.2 Nausea with vomiting, unspecified Active Diagnosis [facility] Diagnosis: ICD-10-CM R06.00 Dyspnea, unspecified Active Diagnosis [facility] Diagnosis: ICD-10-CM E11.40 Type 2 diabetes mellitus with diabetic neuropathy, unsp Active Diagnosis [facility] Diagnosis: ICD-10-CM R49.8 Other voice and resonance disorders Active Diagnosis [facility] Diagnosis: ICD-10-CM Z71.81 Spiritual or jew counseling Active Diagnosis [facility] Diagnosis: ICD-10-CM J44.1 Chronic obstructive pulmonary disease w (acute) exacerbation Active Diagnosis [facility] Admit Reason: COPD EXACERBATION Active Diagnosis [facility] Diagnosis: ICD-10-CM J18.9 Pneumonia, unspecified organism Active Diagnosis [facility] Diagnosis: ICD-10-CM R05.1 Acute cough Active Diagnosis [facility] Diagnosis: ICD-10-CM L72.0 Epidermal cyst Active Diagnosis [facility] Diagnosis: ICD-10-CM L57.0 Actinic keratosis Active Diagnosis [facility] Admit Reason: RIGHT INGUINAL MASS Active Diagnosis [facility] Diagnosis: ICD-10-CM K40.20 Bi inguinal hernia, w/o obst or gangrene, not spcf as recur Active Diagnosis [facility] Diagnosis: ICD-10-CM Z13.5 Encounter for screening for eye and ear disorders Active Diagnosis [facility] Diagnosis: ICD-10-CM L76.34 Postproc seroma of skin, subcu following other procedure Active Diagnosis [facility] Diagnosis: ICD-10-CM J06.9 Acute upper respiratory infection, unspecified Active Diagnosis [facility] Diagnosis: ICD-10-CM J20.9 Acute bronchitis, unspecified Active Diagnosis [facility] Diagnosis: ICD-10-CM Z23 Encounter for immunization Active Diagnosis [facility] Diagnosis: ICD-10-CM D17.9 Benign lipomatous neoplasm, unspecified Active Diagnosis [facility] Medications Combined list of outpatient medications from Department of Defense and [facility] Affairs facilities.Medications provided include 1) outpatient medications from the last 15 months, and 2) patient-reported medications. Medication Details Route Status Patient Instructions Prescription Expires Prescription Number Last Dispense Date Ordering Provider Order Date Order Qty Source ACETAMINOPH EN 325MG TAB TAKE TWO TABLETS BY MOUTH EVERY 6 HOURS FOR PAIN CAUTION: DO NOT EXCEED 4000MG PER DAY ACETAMIN OPHEN (APAP) FROM ALL MEDS. TAKE EVERY 6 HOURS SCHEDULE D FOR ONE DAY. THEN EVERY 6 HOURS NEEDED. ORAL DISCONT INUED 06/02/2024 [id number] 4 NEW SARMIENTO 2023 60 [facility] N ACETAMINOPH EN 325MG TAB TAKE TWO TABLETS BY MOUTH EVERY 6 HOURS NEEDED FOR PAIN. CAUTION: DO NOT EXCEED 4000MG PER DAY ACETAMIN OPHEN (APAP) FROM ALL MEDS. ORAL 06/18/2024 [id number] 4 NATALIO BRIDGES [address] [facility] ACETAMINOPH EN 325MG TAB TAKE TWO TABLETS BY MOUTH EVERY 6 HOURS NEEDED FOR PAIN CAUTION: DO NOT EXCEED 4000MG PER DAY ACETAMIN OPHEN (APAP) FROM ALL MEDS. PLEASE TAKE ROUND THE CLOCK FOR NEXT 3 DAYS EVERY 6 HOUR AND THEN NEEDED. CAUTION: DO NOT EXCEED 4000MG PER DAY ACETAMIN OPHEN (APAP) FROM ALL MEDS. PLEASE TAKE ROUND THE CLOCK FOR NEXT 3 DAYS EVERY 6 HOUR AND THEN NEEDED. ORAL 09/13/2023 [id number] 4 CRYSTAL SARMIENTO 2023 35 [facility]ISIO N ALBUTEROL 100MCG/IPRA TROPIUM BR 20MCG/SPRAY INHALER,ORA L,4GM INHALE 1 PUFF BY ORAL INHALATI ON FOUR TIMES A DAY DIRECTED RESPIR ATORY (INHAL ATION) DISCONT INUED BY PROVIDE R 03/20/2024 [id number] 4 NATALIO BRIDGES 2022 2 [facility] N ALBUTEROL SO4 0.083% INHL,3ML INHALE 1 VIAL (2.5MG/3 ML) BY NEBULIZA TION EVERY 6 HOURS DIRECTED NEBULI ZATION ACTIVE 10/31/2025 [id number] 5 NATALIO BRIDGES [address] [facility] ALBUTEROL SO4 0.083% INHL,3ML INHALE 1 VIAL (2.5MG/3 ML) BY NEBULIZA TION EVERY 6 HOURS DIRECTED NEBULI ZATION DISCONT INUED 10/02/2024 [id number] 4 NATALIO BRIDGES [address] [facility] ALBUTEROL SO4 90MCG/ACTUA T (CFC-F) INHL,ORAL,8 .5GM INHALE 1 PUFF ORAL INHALATI ON FOUR TIMES A DAY NEEDED SHAKE WELL. RINSE MOUTHPIE CE FREQUENT LY TO PREVENT CLOGGING . RESPIR ATORY (INHAL ATION) ACTIVE 11/14/2024 [id number] 5 LEWIS DEAN RRI 2023 1 [facility] N AMLODIPINE BESYLATE 10MG TAB TAKE ONE TABLET BY MOUTH ONCE A DAY FOR HEART/BL OOD PRESSURE ORAL ACTIVE 05/20/2025 [id number] 5 NATALIO BRIDGES [address] [facility] AMLODIPINE BESYLATE 10MG TAB TAKE ONE TABLET BY MOUTH ONCE A DAY FOR HEART/BL OOD PRESSURE ORAL DISCONT INUED 06/18/2024 [id number] 4 NATALIO BRIDGES [address] [facility] AMOXICILLIN TRIHYDRATE 875MG/CLAVU LANATE K 125MG TAB TAKE 1 TABLET BY MOUTH TWICE A DAY FOR ABDOMINA L INFECTIO N TAKE WITH FOOD. TAKE UNTIL GONE UNLESS OTHERWIS E DIRECTED . ORAL 09/13/2023 [id number] 4 ELSTER,ST EVEN 2023 20 [facility] DIVIS[facility] N ASPIRIN 81MG TAB,EC TAKE TWO TABLETS BY MOUTH ONCE A DAY FOR HEART OR CIRCULAT ION. TAKE WITH FOOD. ORAL ACTIVE 10/29/2025 [id number] 5 NATALIO BRIDGES [address] [facility] ASPIRIN 81MG TAB,EC TAKE TWO TABLETS BY MOUTH ONCE A DAY FOR HEART OR CIRCULAT ION. TAKE WITH FOOD. ORAL DISCONT INUED 08/31/2024 [id number] 5 NATALIO BRIDGES [address] [facility] AZITHROMYCI N 250MG TAB TAKE TWO TABLETS BY MOUTH ONCE A DAY FOR 1 DAY, THEN TAKE ONE TABLET ONCE A DAY FOR 4 DAYS FOR BRONCHIT IS (UNTIL GONE) ORAL 10/30/2023 [id number] 4 MICHELL NADIA 2023 6 [facility] DIV[facility] N BENZONATATE 100MG CAP TAKE ONE CAPSULE BY MOUTH THREE TIMES A DAY NEEDED FOR COUGH ORAL 10/30/2023 [id number] 4 CHRISALLNICHOL NADIA 2023 21 [facility] DIVISIO N BUDESONIDE 160/GLYCOPY R 9/FORMOTER 4.8MCG/ACT INHL,ORAL,1 0.7GM INHALE 2 PUFFS INHALATI ON TWICE A DAY DIRECTED FOR COPD (CLEAN INHALER FOLLOWED BY 2 PRIMING PUFFS ONCE WEEKLY) INHALA TION DISCONT INUED BY PROVIDE R 04/06/2024 [id number] 4 NATALIO BRIDGES 2022 3 [facility] DIV[facility] N CARBOXYMETH YLCELLULOSE NA 0.5% SOLN,OPH INSTILL 1 DROP IN BOTH EYES FOUR TIMES A DAY NEEDED FOR DRY EYE(S) OPHTHA LMIC 09/07/2024 [id number] 4 MICHAEL BROWN GAGE 2023 45 [facility] DIVISIO N CHLORHEXIDI NE GLUCONATE 4% LIQUID,TOP APPLY SMALL AMOUNT TO AFFECTED AREA(S) TWICE (WASH BODY THE EVENING BEFORE AND THE MORNING OF SURGERY; USE 1 BOTTLE FOR EACH EPISODE OF BATHING TO REDUCE SKIN BACTERIA ; AVOID CONTACT WITH FACE AND PRIVATES . DO NOT SWALLOW) (WASH BODY THE EVENING BEFORE AND THE MORNING OF SURGERY; USE 1 BOTTLE FOR EACH EPISODE OF BATHING TO REDUCE SKIN BACTERIA ; AVOID CONTACT WITH FACE AND PRIVATES . DO NOT SWALLOW) TOPICA L 05/22/2024 [id number] BROOKS 2023 240 [facility] DIVISIO N CHLORHEXIDI NE GLUCONATE 4% LIQUID,TOP APPLY MODERATE AMOUNT TO AFFECTED AREA(S) DIRECTED FOR SKIN DISINFEC TION FOR TOPICAL USE ONLY. AVOID CONTACT WITH EYES. TOPICA L 09/29/2023 [id number] 4 Petra ABRAHAM 2023 120 [facility] DIVISIO N CHOLECALCIF KRISTA 50MCG (2,000UNIT) TAB TAKE TWO TABLETS BY MOUTH ONCE A DAY FOR VITAMIN D DEFICIEN CY. ORAL ACTIVE 09/30/2025 [id number] 5 NATALIO BRIDGES [address] [facility] CHOLECALCIF KRISTA 50MCG (2,000UNIT) TAB TAKE TWO TABLETS BY MOUTH ONCE A DAY FOR VITAMIN D DEFICIEN CY. ORAL DISCONT INUED 08/31/2024 [id number] 4 NATALIO BRIDGES [address] [facility] CHOLECALCIF KRISTA 50MCG (2,000UNIT) TAB TAKE TWO TABLETS BY MOUTH ONCE A DAY FOR VITAMIN D DEFICIEN CY. ORAL DISCONT INUED 09/21/2023 [id number] 4 NATALIO BRIDGES [address] [facility] CICLOPIROX 8% SOLN,TOP APPLY LIGHTLY TO AFFECTED AREA(S) ONCE A DAY (THIN COAT TO THICK NAILS - FILE DOWN AFTER 1 WEEK) (EXTERNA L USE ONLY) TOPICA L 08/31/2024 [id number] 4 NATALIO BRIDGES [address] [facility] CYCLOBENZAP RINE HCL 10MG TAB TAKE ONE TABLET BY MOUTH THREE TIMES A DAY FOR MUSCLE SPASM MAY CAUSE DROWSINE SS. DO NOT DRINK ALCOHOL WHILE TAKING THIS MEDICATI ON. ORAL ACTIVE 01/25/2025 [id number] 4 NATALIO BRIDGES 2023 90 [facility] DIV[facility] N DICLOFENAC NA 1% GEL,TOP APPLY 2 GM TO AFFECTED AREA(S) FOUR TIMES A DAY FOR OSTEOART HRITIS DO NOT EXCEED MORE THAN 16 GRAMS DAILY TO ANY LOWER EXTREMIT Y JOINT. NOT MORE THAN 8 GRAMS DAILY TO ANY UPPER EXTREMIT Y JOINT. MAX 32GM/DAY OVER ALL JOINTS. (MEASURE DOSE WITH RULER ATTACHED INSIDE BOX) LEVI Trevizo 01/04/2024 [id number] FRANSISCO WHALEN R 2022 100 [facility] DIVISIO N HYDROCODONE 10MG/ACETAM INOPHEN 325MG TAB TAKE 1 TABLET BY MOUTH EVERY 6 HOURS NEEDED FOR PAIN CAUTIO N: DO NOT EXCEED 4000MG PER DAY ACETAMIN OPHEN (APAP) FROM ALL MEDS. DO NOT TAKE WITH OXYCODON E ORAL ACTIVE 11/19/2024 [id number] 5 NATALIO BRIDGES 2024 120 [facility] DIVISIO N HYDROCODONE 10MG/ACETAM INOPHEN 325MG TAB TAKE 1 TABLET BY MOUTH EVERY 6 HOURS NEEDED FOR PAIN CAUTIO N: DO NOT EXCEED 4000MG PER DAY ACETAMIN OPHEN (APAP) FROM ALL MEDS. DO NOT TAKE WITH OXYCODON E ORAL DISCONT INUED 10/24/2024 [id number] 5 NATALIO BRIDGES 2024 120 [facility] DIVISIO N HYDROCODONE 10MG/ACETAM INOPHEN 325MG TAB TAKE 1 TABLET BY MOUTH EVERY 6 HOURS NEEDED FOR PAIN CAUTIO N: DO NOT EXCEED 4000MG PER DAY ACETAMIN OPHEN (APAP) FROM ALL MEDS. DO NOT TAKE WITH OXYCODON E ORAL DISCONT INUED 09/26/2024 [id number] 5 NATALIO BRIDGES 2024 120 [facility] DIVISIO N HYDROCODONE 10MG/ACETAM INOPHEN 325MG TAB TAKE 1 TABLET BY MOUTH EVERY 6 HOURS NEEDED FOR PAIN CAUTIO N: DO NOT EXCEED 4000MG PER DAY ACETAMIN OPHEN (APAP) FROM ALL MEDS. DO NOT TAKE WITH OXYCODON E ORAL DISCONT INUED 05/21/[id number] 4 NATALIO BRIDGES 2023 120 [facility] DIVISIO N HYDROCODONE 10MG/ACETAM INOPHEN 325MG TAB TAKE 1 TABLET BY MOUTH EVERY 6 HOURS NEEDED FOR PAIN CAUTION: DO NOT EXCEED 4000MG PER DAY ACETAMIN OPHEN (APAP) FROM ALL MEDS. DO NOT TAKE WITH OXYCODON E ORAL DISCONT INUED 04/26/2024 [id number] 4 [facility] NATALIO 2023 120 [facility] DIVISIO N HYDROCODONE 10MG/ACETAM INOPHEN 325MG TAB TAKE 1 TABLET BY MOUTH EVERY 6 HOURS NEEDED FOR PAIN CAUTION: DO NOT EXCEED 4000MG PER DAY ACETAMIN OPHEN (APAP) FROM ALL MEDS. DO NOT TAKE WITH OXYCODON E ORAL DISCONT INUED 03/27/2024 [id number] 4 [facility] NATALIO 2023 120 [facility] DIVISIO N HYDROCODONE 10MG/ACETAM INOPHEN 325MG TAB TAKE 1 TABLET BY MOUTH EVERY 6 HOURS NEEDED FOR PAIN CAUTION: DO NOT EXCEED 4000MG PER DAY ACETAMIN OPHEN (APAP) FROM ALL MEDS. DO NOT TAKE WITH OXYCODON E ORAL DISCONT INUED 01/25/2024 [id number] 4 [facility] NATALIO 2023 120 [facility] DIVISIO N HYDROCODONE 10MG/ACETAM INOPHEN 325MG TAB TAKE 1 TABLET BY MOUTH EVERY 6 HOURS NEEDED FOR PAIN CAUTION: DO NOT EXCEED 4000MG PER DAY ACETAMIN OPHEN (APAP) FROM ALL MEDS. DO NOT TAKE WITH OXYCODON E ORAL DISCONT INUED 11/23/2023 [id number] 4 NATALIO BRIDGES [address] [facility] HYDROCODONE 10MG/ACETAM INOPHEN 325MG TAB TAKE 1 TABLET BY MOUTH EVERY 6 HOURS NEEDED FOR PAIN CAUTION: DO NOT EXCEED 4000MG PER DAY ACETAMIN OPHEN (APAP) FROM ALL MEDS. DO NOT TAKE WITH OXYCODON E ORAL DISCONT INUED 10/25/2023 [id number] 4 NATALIO BRIDGES [address] [place] [address] HYDROCODONE 10MG/ACETAM INOPHEN 325MG TAB TAKE 1 TABLET BY MOUTH EVERY 6 HOURS NEEDED FOR PAIN CAUTIO N: DO NOT EXCEED 4000MG PER DAY ACETAMIN OPHEN (APAP) FROM ALL MEDS. DO NOT TAKE WITH OXYCODON E ORAL 08/24/2024 [id number] 4 NATALIO BRIDGES 2023 120 [facility] DIVISIO N HYDROCODONE 10MG/ACETAM INOPHEN 325MG TAB TAKE 1 TABLET BY MOUTH EVERY 6 HOURS NEEDED FOR PAIN CAUTIO N: DO NOT EXCEED 4000MG PER DAY ACETAMIN OPHEN (APAP) FROM ALL MEDS. DO NOT TAKE WITH OXYCODON E ORAL 07/24/[id number] 4 NATALIO BRIDGES 2023 120 [facility] DIVISIO N HYDROCODONE 10MG/ACETAM INOPHEN 325MG TAB TAKE 1 TABLET BY MOUTH EVERY 6 HOURS NEEDED CAUTIO N: DO NOT EXCEED 4000MG PER DAY ACETAMIN OPHEN (APAP) FROM ALL MEDS. DO NOT TAKE WITH OXYCODON E ORAL 06/18/[id number] 4 NATALIO BRIDGES [address] [facility] HYDROCODONE 10MG/ACETAM INOPHEN 325MG TAB TAKE 1 TABLET BY MOUTH EVERY 6 HOURS NEEDED FOR PAIN CAUTION: DO NOT EXCEED 4000MG PER DAY ACETAMIN OPHEN (APAP) FROM ALL MEDS. DO NOT TAKE WITH OXYCODON E ORAL 02/24/2024 [id number] 4 NATALIO BRIDGES [address] [place] [address] DIVISIO N HYDROCODONE 10MG/ACETAM INOPHEN 325MG TAB TAKE 1 TABLET BY MOUTH EVERY 6 HOURS NEEDED FOR PAIN CAUTION: DO NOT EXCEED 4000MG PER DAY ACETAMIN OPHEN (APAP) FROM ALL MEDS. DO NOT TAKE WITH OXYCODON E ORAL 12/21/[id number] 4 NATALIO BRIDGES [address] [place] [address] DIVISIO N HYDROCODONE 10MG/ACETAM INOPHEN 325MG TAB TAKE 1 TABLET BY MOUTH EVERY 6 HOURS NEEDED FOR PAIN CAUTION: DO NOT EXCEED 4000MG PER DAY ACETAMIN OPHEN (APAP) FROM ALL MEDS. DO NOT TAKE WITH OXYCODON E ORAL 09/20/[id number] 4 NATALIO BRIDGES 2023 120 [facility] DIVISIO N IBUPROFEN 400MG TAB TAKE ONE TABLET BY MOUTH EVERY 6 HOURS NEEDED FOR PAIN TAKE WITH FOOD. PLEASE TAKE ROUND THE CLOCK FOR EVERY 6 HOUR FOR NEXT 3 DAYS. THEN NEEDED. YOU MAY ALTERNAT E WITH TYLENOL. TAKE WITH FOOD. PLEASE TAKE ROUND THE CLOCK FOR EVERY 6 HOUR FOR NEXT 3 DAYS. THEN NEEDED. YOU MAY ALTERNAT E WITH TYLENOL. ORAL DISCONT INUED 09/13/2023 [id number] 4 CRYSTAL SARMIENTO 2023 25 [facility] DIVISIO N IBUPROFEN 600MG TAB TAKE ONE TABLET BY MOUTH EVERY 6 HOURS FOR PAIN TAKE WITH FOOD. TAKE SCHEDULE D EVERY 6 HOURS FOR ONE DAY. THEN EVERY 6 HOURS NEEDED. ORAL DISCONT INUED 06/02/2024 [id number] 4 NEW SARMIENTO 2023 60 [facility] DIVISIO N IBUPROFEN 600MG TAB TAKE ONE TABLET BY MOUTH EVERY 6 HOURS NEEDED FOR PAIN. TAKE WITH FOOD ORAL 06/18/2024 [id number] 4 NATALIO BRIDGES [address] [facility] MELOXICAM 15MG TAB TAKE ONE TABLET BY MOUTH ONCE A DAY FOR PAIN ORAL DISCONT INUED 09/13/[id number] JARET OMER 2023 30 [facility] DIVISIO N MELOXICAM 15MG TAB TAKE ONE TABLET BY MOUTH ONCE A DAY FOR PAIN ORAL 09/30/2023 [id number] 4 NATALIO BRIDGES [address] [facility] METFORMIN HCL 1000MG TAB TAKE ONE TABLET BY MOUTH TWICE A DAY WITH MEALS FOR BLOOD SUGAR CONTROL. AVOID ALCOHOL. DISCONTI NUE BEFORE GETTING XRAY DYE. ORAL ACTIVE 09/16/2025 [id number] 5 NATALIO BRIDGES [address] [facility] METFORMIN HCL 1000MG TAB TAKE ONE TABLET BY MOUTH TWICE A DAY WITH MEALS FOR BLOOD SUGAR CONTROL. AVOID ALCOHOL. DISCONTI NUE BEFORE GETTING XRAY DYE. ORAL DISCONT INUED 08/31/2024 [id number] 4 NATALIO BRIDGES [address] [facility] NALOXONE HCL 8MG/SPRAY SOLN,SPRAY, NASAL USE 1 SPRAY (8MG) INTO ONE NOSTRIL ONLY ONE-TIME FOR OPIOID OVERDOSE DO NOT PRIME NASAL SPRAY. SPRAY ONE DOSE IN ONE NOSTRIL, GIVE ADDITION AL DOSE IF PATIENT DOES NOT START BREATHIN G WITHIN 2-3 MINUTES OR STOPS BREATHIN G AGAIN. CALL 911. IF USED, NOTIFY PROVIDER . NASAL ACTIVE 03/28/2025 [id number] 4 NATALIO BRIDGES 2023 2 [facility] DIVISIO N ONDANSETRON HCL 4MG TAB,ORALLY DISINTEGRAT ING TAKE ONE TABLET UNDER THE TONGUE EVERY EIGHT(8) HOURS NEEDED FOR NAUSEA/V OMITING SUBLIN GUAL 12/30/2023 [id number] 4 MATTARCA LINE 2023 30 [facility] DIVISIO N OXYCODONE HCL 5MG TAB TAKE ONE-HALF TABLET BY MOUTH ONCE A DAY NEEDED FOR POST-OPE RATIVE PAIN MAY CAUSE CONSTIPA TION. DO NOT TAKE WITH HYDROCOD ONE/ACET AMINOPHE N ORAL 06/02/2024 [id number] 4 ADRA,AMAL 2023 3 [facility] DIVISIO N PANTOPRAZOL E NA 40MG TAB,EC TAKE ONE TABLET BY MOUTH TWO TIMES A DAY BEFORE MEALS TO LOWER STOMACH ACID - TAKE 30 MINUTES BEFORE MEAL(S) ORAL ACTIVE 04/02/2025 [id number] 5 NATALIO BRIDGES 2023 180 [facility] DIVISIO N PANTOPRAZOL E NA 40MG TAB,EC TAKE ONE TABLET BY MOUTH TWO TIMES A DAY BEFORE MEALS TO LOWER STOMACH ACID - TAKE 30 MINUTES BEFORE MEAL(S) ORAL DISCONT INUED 03/20/2024 [id number] 4 NATALIO BRIDGES 2022 180 [facility] DIVISIO N POLYETHYLEN E GLYCOL 3350 PWDR,ORAL MIX AND DRINK 1 CAPFUL BY MOUTH ONCE A DAY FOR CONSTIPA TION (MEASURE WITH CAP AND MIX IN 8 OZ OF WATER) ORAL ACTIVE 10/15/2025 [id number] 5 Peter WASHBURN E III 2024 510 [facility] DIVISIO N POLYETHYLEN E GLYCOL 3350 PWDR,ORAL MIX AND DRINK 1 CAPFUL BY MOUTH ONCE A DAY FOR CONSTIPA TION (MEASURE WITH CAP AND MIX IN 8 OZ OF WATER) ORAL DISCONT INUED 07/29/2025 [id number] 5 Peter WASHBURN E III 2023 510 [facility] DIVISIO N POLYETHYLEN E GLYCOL 3350 PWDR,ORAL MIX AND DRINK 1 CAPFUL BY MOUTH ONCE A DAY FOR CONSTIPA TION (MEASURE WITH CAP AND MIX IN 8 OZ OF WATER) ORAL DISCONT INUED 04/22/2025 [id number] 4 Peter WASHBURN E III 2023 510 [facility] DIVISIO N POLYETHYLEN E GLYCOL 3350 PWDR,ORAL MIX AND DRINK 1 CAPFUL BY MOUTH ONCE A DAY FOR CONSTIPA TION (MEASURE WITH CAP AND MIX IN 8 OZ OF WATER) ORAL DISCONT INUED 01/03/2025 [id number] 4 Peter WASHBURN III 2023 510 [facility] DIVIS[facility] N POLYETHYLEN E GLYCOL 3350 PWDR,ORAL MIX AND DRINK 1 CAPFUL BY MOUTH ONCE A DAY FOR CONSTIPA TION (MEASURE WITH CAP AND MIX IN 8 OZ OF WATER) ORAL 10/11/2023 [id number] 4 Petra ABRAHAM 2023 238 [facility] N PREDNISONE 50MG TAB TAKE ONE TABLET BY MOUTH EVERY MORNING FOR BRONCHIT IS TAKE WITH FOOD OR MILK. ORAL 10/30/2023 [id number] 4 NADIA GALARZA 2023 5 [facility] DIV[facility] N PREGABALIN 200MG CAP,ORAL TAKE ONE CAPSULE BY MOUTH THREE TIMES A DAY ORAL ACTIVE 05/02/2025 [id number] 5 NATALIO BRIDGES 2024 90 [facility] [facility] PREGABALIN 200MG CAP,ORAL TAKE ONE CAPSULE BY MOUTH THREE TIMES A DAY FOR NERVE PAIN ORAL DISCONT INUED 03/02/2024 [id number] NATALIO BRIDGES [address] [facility] PREGABALIN 200MG CAP,ORAL TAKE ONE CAPSULE BY MOUTH THREE TIMES A DAY FOR NERVE PAIN ORAL DISCONT INUED 09/23/2023 [id number] 4 NATALIO BRIDGES [address] [facility] PREGABALIN 200MG CAP,ORAL TAKE ONE CAPSULE BY MOUTH THREE TIMES A DAY FOR NERVE PAIN ORAL 10/02/2024 [id number] SHASHI FLOREZ [address] [facility] PSYLLIUM PWDR,ORAL MIX AND DRINK 1 TEASPOON FUL BY MOUTH ONCE A DAY FOR FIBER SUPPLEME NTATION MIX IN GLASS OF WATER/JU ICE. FLAVOR SUBSTITU TIONS MAY/WILL OCCUR AND SPECIFIC VARIETIE S WILL NOT BE PROVIDED . ORAL ACTIVE 01/03/2025 [id number] 4 Peter WASHBURN III 2023 390 [facility] PSYLLIUM PWDR,ORAL MIX AND DRINK 1 TEASPOON FUL BY MOUTH ONCE A DAY FOR FIBER SUPPLEME NTATION MIX IN GLASS OF WATER/JU ICE. FLAVOR SUBSTITU TIONS MAY/WILL OCCUR AND SPECIFIC VARIETIE S WILL NOT BE PROVIDED . ORAL DISCONT INUED 03/20/2024 [id number] NATALIO BRIDGES 2022 390 [facility] SODIUM FLUORIDE 1.1% TOOTHPASTE USE DIRECTED BY MOUTH ONCE A DAY TOOTHPAS TE (DO NOT SWALLOW) ORAL ACTIVE 12/17/2024 [id number] Yisel COOK 2023 51 [facility] TAMSULOSIN HCL 0.4MG CAP TAKE ONE CAPSULE BY MOUTH EVERY EVENING APPROXIM ATELY 30 MINUTES AFTER THE SAME MEAL EACH DAY ORAL ACTIVE 01/03/2025 [id number] Peter WASHBURN III 2023 90 [facility] TOPIRAMATE 50MG TAB TAKE ONE TABLET BY MOUTH TWICE A DAY FOR SEIZURES OR MIGRAINE PROPHYLA XIS ORAL 08/31/2024 [id number] 4 NATALIO BRIDGES [address] [facility] VALSARTAN 320MG TAB TAKE ONE TABLET BY MOUTH ONCE A DAY TO LOWER BLOOD PRESSURE ORAL ACTIVE 05/20/2025 [id number] 5 NATALIO BRIDGES [address] [facility] VALSARTAN 320MG TAB TAKE ONE TABLET BY MOUTH ONCE A DAY TO LOWER BLOOD PRESSURE ORAL DISCONT INUED 10/22/2024 [id number] 4 NICHOL PATTON 2023 90 [facility] VALSARTAN 320MG TAB TAKE ONE TABLET BY MOUTH ONCE A DAY TO LOWER BLOOD PRESSURE ORAL DISCONT INUED 02/13/2024 [id number] 4 NATALIO BRIDGES [address] [facility] Allergies, Adverse Reactions, Alerts Combined list of allergies from Department of Defense and Veterans Affairs facilities. It does not include entries that were removed or entered in error. Substance Category Reaction Severity Reaction type Status Date Reported Comments Source COCONUTS Propensity to adverse reactions to food (finding) Urticaria active 2 [facility] FENTANYL Propensity to adverse reactions to drug (finding) active 7 [facility] LISINOPRIL Propensity to adverse reactions to drug (finding) active 7 [facility] Immunizations Combined list of available immunizations from the Department of Defense and Veterans Affairs facilities. Immunization Series Date Given Administered By Site Reaction Lot Number CVX Code Drug Content Strategist Status Comments Source INFLUENZA, UNSPECIFIED FORMULATION 2023 88 complet ed [facility] RSV, BIVALENT, PROTEIN SUBUNIT RSVPREF, DILUENT RECONSTITUTED , 0.5 ML, PF 2023 RINA FERREIRA H R RIGHT DELTO ID [id number] [facility] INFLUENZA, HIGH-DOSE, QUADRIVALENT 2022 WENDYBRYAN BLAIR RIGHT DELTO ID [id number] A 197 complet ed [facility] INFLUENZA, HIGH-DOSE, QUADRIVALENT 2021 197 complet ed Partner:Wilberto CARDOSO.Admin istered by:[facility] .( [id number]).NDC: [id number] .Address: [address] [place] [address] Dosage: ML 0.7 [facility] COVID-19 (ShipServ), MRNA, LNP-S, PF, 30 MCG/0.3 ML DOSE 3 2020 208 complet ed [facility] INFLUENZA, HIGH-DOSE, QUADRIVALENT 2020 197 complet ed Partner:Wilberto CARDOSO.Admin istered by:[facility] .( [id number]).ND:[id number] .Address: [address] [place] [address] Dosage: ML 0.7 [facility] INFLUENZA, UNSPECIFIED FORMULATION 2020 88 complet ed [facility] TDAP 2020 115 complet ed [facility] COVID-19 (ShipServ), MRNA, LNP-S, PF, 30 MCG/0.3 ML DOSE 2 2020 208 complet ed PFR; [id number]; [facility]-19 ([employer]), MRNA, LNP-S, PF, 30 MCG/0.3 ML DOSE 1 2020 208 complet ed PFR; [id number]; 1 [facility] INFLUENZA, UNSPECIFIED FORMULATION 2019 88 complet ed [facility] ZOSTER RECOMBINANT [address] [facility] INFLUENZA, INJECTABLE, QUADRIVALENT, PRESERVATIVE FREE [address] [facility] ZOSTER RECOMBINANT [address] [facility] INFLUENZA, INJECTABLE, QUADRIVALENT, PRESERVATIVE FREE 2017 150 complet ed [facility] INFLUENZA, SEASONAL, INJECTABLE, PRESERVATIVE FREE 2016 140 complet ed [facility] PNEUMOCOCCAL POLYSACCHARID E PPV23 [address] [facility] INFLUENZA, SEASONAL, INJECTABLE, PRESERVATIVE FREE [address] [facility] PNEUMOCOCCAL CONJUGATE PCV 13 2014 133 complet ed [facility] INFLUENZA, UNSPECIFIED FORMULATION 2013 88 complet ed [facility] INFLUENZA, UNSPECIFIED FORMULATION 2012 88 complet ed [facility] INFLUENZA, UNSPECIFIED FORMULATION 2011 88 complet ed [facility] TDAP 2011 115 complet ed Right Deltoid [facility] INFLUENZA, UNSPECIFIED FORMULATION 2010 88 complet ed [facility] INFLUENZA, UNSPECIFIED FORMULATION 2009 88 complet ed [facility] INFLUENZA, UNSPECIFIED FORMULATION 2008 88 complet ed [facility] ZOSTER LIVE 2008 121 complet ed [facility] INFLUENZA, UNSPECIFIED FORMULATION 2007 88 complet ed [facility] INFLUENZA, UNSPECIFIED FORMULATION 2006 88 complet ed [facility] INFLUENZA, UNSPECIFIED FORMULATION 2005 88 complet ed [facility] INFLUENZA, UNSPECIFIED FORMULATION 2004 88 complet ed [facility] OUTSIDE PNEUMOVAX (HISTORICAL) 2004 109 complet ed in zoroastrianism ne [facility] INFLUENZA, UNSPECIFIED FORMULATION 2003 88 complet ed [facility] INFLUENZA, UNSPECIFIED FORMULATION 2002 88 complet ed [facility] INFLUENZA, UNSPECIFIED FORMULATION 2001 88 complet ed [facility] TD(ADULT) UNSPECIFIED FORMULATION 2001 139 complet ed [facility] INFLUENZA, UNSPECIFIED FORMULATION [address] 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 Order Name Results Value Reference Range Date Interpretation Specimen Comments Source GLUCOSE, BLOOD-po ct (STL) GLUCOSE [MASS/VOLU ME] IN BLOOD BY AUTOMATED TEST STRIP 107 mg/dL 72 - 99 05/03 H Specimen Type: BLOOD Comment: Test Performed by: [id number] Meter #: [id number] Ordering Provider: CARMELA WASHBURN III Report Released Date/Time: May 03, 2024 06:30 AM Reporting Lab: [address] [address] Performing Lab: [facility] [address] [place] [address] [facility] GLUCOSE, BLOOD-po ct (STL) GLUCOSE [MASS/VOLU ME] IN BLOOD BY AUTOMATED TEST STRIP 122 mg/dL 72 - 99 05/02 H Specimen Type: BLOOD Comment: Test Performed by: [id number] Meter #: [id number] Ordering Provider: CARMELA WASHBURN III Report Released Date/Time: May 02, 2024 10:39 PM Reporting Lab: [address] [address] Performing Lab: [facility] [place] [id number] MRSA SURVL NARES DNA METHICILLI N RESISTANT STAPHYLOCO CCUS AUREUS (MRSA) DNA [PRESENCE] IN NOSE BY DA WITH PROBE DETECTION Negative 05/02 Specimen Type: NARES Comment: Qualitative real-time PCR test for the rapid detection of methicillin -resistant Staphylococ cus aureus (MRSA) DNA from nasal swabs. A negative result does not preclude infection with the agent(s) tested and should not be used as the sole basis for treatment or other patient management decisions. A positive test does not necessarily indicate the presence of viable organisms, following bacterial culture to recover the organism for further characteriz ation and susceptibil ity testing. All results must be combined with clinical observation s, patient history, and epidemiolog ical information for final interpretat ion. Ordering Provider: GEN MARTIR REBOLLEDO Report Released Date/Time: May 02, 2024 07:37 PM Reporting Lab: [place] [address] Performing Lab: [address] GLUCOSE, BLOOD-po ct (STL) GLUCOSE [MASS/VOLU ME] IN BLOOD BY AUTOMATED TEST STRIP 107 mg/dL 72 - 99 05/02 H Specimen Type: BLOOD Comment: Test Performed by: [id number] Meter #: [id number] Ordering Provider: CARMELA WASHBURN III Report Released Date/Time: May 02, 2024 06:47 PM Reporting Lab: [place] [address] Performing Lab: [place] [id number] GLUCOSE, BLOOD-po ct (STL) GLUCOSE [MASS/VOLU ME] IN BLOOD BY AUTOMATED TEST STRIP 99 mg/dL 72 - 99 05/02 Specimen Type: BLOOD Comment: Test Performed by: [id number] Meter #: [id number] Ordering Provider: Petra EDWARDS Report Released Date/Time: May 02, 2024 04:26 PM Reporting Lab: [address] [address] Performing Lab: [place] [id number] GLUCOSE, BLOOD-po ct (STL) GLUCOSE [MASS/VOLU ME] IN BLOOD BY AUTOMATED TEST STRIP 104 mg/dL 72 - 99 05/02 H Specimen Type: BLOOD Comment: Test Performed by: [id number] Meter #: [id number] Ordering Provider: Petra EDWARDS Report Released Date/Time: May 02, 2024 10:02 AM Reporting Lab: [place] [address] Performing Lab: [address] [phone] [place] [address] CBC LEUKOCYTES [#/VOLUME] IN BLOOD BY AUTOMATED COUNT 7.2 10*3/uL 3.6 - 11.2 04/22 Specimen Type: BLOOD No comment entered. Ordering Provider: AYDE COULTER Report Released Date/Time: Apr 22, 2024 10:03 AM Reporting Lab: [address] [address] Performing Lab: [address] [phone] CBC ERYTHROCYT ES [#/VOLUME] IN BLOOD BY AUTOMATED COUNT 5.52 10*6/uL 4.10 - 5.70 04/22 Specimen Type: BLOOD No comment entered. Ordering Provider: AYDE COULTER Report Released Date/Time: Apr 22, 2024 10:03 AM Reporting Lab: [address] [address] Performing Lab: [address] [phone] [place] [address] CBC HEMOGLOBIN [MASS/VOLU ME] IN BLOOD 15.7 g/dL 13.1 - 16.8 04/22 Specimen Type: BLOOD No comment entered. Ordering Provider: AYDE COULTER F Report Released Date/Time: Apr 22, 2024 10:03 AM Reporting Lab: [address] [address] Performing Lab: [address] [phone] [place] [address] CBC HEMATOCRIT [VOLUME FRACTION] OF BLOOD 47.2 38.2 - 48.4 04/22 Specimen Type: BLOOD No comment entered. Ordering Provider: AYDE COULTER F Report Released Date/Time: Apr 22, 2024 10:03 AM Reporting Lab: [place] [address] Performing Lab: [phone] CBC MCV [ENTITIC VOLUME] BY AUTOMATED COUNT 85.5 fL 80.0 - 100.0 04/22 Specimen Type: BLOOD No comment entered. Ordering Provider: AYDE COULTER F Report Released Date/Time: Apr 22, 2024 10:03 AM Reporting Lab: [address] [address] Performing Lab: [address] [phone] [place] [address] CBC MCH [ENTITIC MASS] BY AUTOMATED COUNT 28.4 pg 27.0 - 34.0 04/22 Specimen Type: BLOOD No comment entered. Ordering Provider: AYDE COULTER F Report Released Date/Time: Apr 22, 2024 10:03 AM Reporting Lab: [address] [address] Performing Lab: [phone] [place] [address] CBC MCHC [MASS/VOLU ME] BY AUTOMATED COUNT 33.3 g/dL 33.0 - 36.0 04/22 Specimen Type: BLOOD No comment entered. Ordering Provider: AYDE COULTER F Report Released Date/Time: Apr 22, 2024 10:03 AM Reporting Lab: [address] [address] Performing Lab: [address] [address] [facility] CBC PLATELETS [#/VOLUME] IN BLOOD BY AUTOMATED COUNT 229 10*3/uL 150 - 400 04/22 Specimen Type: BLOOD No comment entered. Ordering Provider: AYDE COULTER F Report Released Date/Time: Apr 22, 2024 10:03 AM Reporting Lab: [address] [address] Performing Lab: [address] [phone] [place] [address] CBC PLATELET MEAN VOLUME [ENTITIC VOLUME] IN BLOOD BY AUTOMATED COUNT 12.0 fL 7.5 - 11.2 04/22 H Specimen Type: BLOOD No comment entered. Ordering Provider: AYDE COULTER F Report Released Date/Time: Apr 22, 2024 10:03 AM Reporting Lab: [address] [address] Performing Lab: [address] [address] [facility] CBC ERYTHROCYT E DISTRIBUTI ON WIDTH [RATIO] BY AUTOMATED COUNT 14.9 11.8 - 15.1 04/22 Specimen Type: BLOOD No comment entered. Ordering Provider: AYDE COULTER F Report Released Date/Time: Apr 22, 2024 10:03 AM Reporting Lab: [address] [address] Performing Lab: [address] [address] [facility] CBC LYMPHOCYTE S/100 LEUKOCYTES IN BLOOD BY AUTOMATED COUNT 26 04/22 Specimen Type: BLOOD No comment entered. Ordering Provider: AYDE COULTER Report Released Date/Time: Apr 22, 2024 10:03 AM Reporting Lab: [facility] [address] [facility] [address] Performing Lab: [facility] [address] [facility] [address] [facility] CBC MONOCYTES/ 100 LEUKOCYTES IN BLOOD BY AUTOMATED COUNT 10 04/22 Specimen Type: BLOOD No comment entered. Ordering Provider: AYDE COULTER Report Released Date/Time: Apr 22, 2024 10:03 AM Reporting Lab: [facility] [address] [facility] [address] Performing Lab: [facility] [address] [facility] [address] [facility] CBC NEUTROPHIL S/100 LEUKOCYTES IN BLOOD BY AUTOMATED COUNT 63 04/22 Specimen Type: BLOOD No comment entered. Ordering Provider: AYDE COULTER Report Released Date/Time: Apr 22, 2024 10:03 AM Reporting Lab: [facility] [address] [facility] [address] Performing Lab: [facility] [address] [facility] [address] [facility] CBC EOSINOPHIL S/100 LEUKOCYTES IN BLOOD BY AUTOMATED COUNT 1 04/22 Specimen Type: BLOOD No comment entered. Ordering Provider: AYDE COULTER Report Released Date/Time: Apr 22, 2024 10:03 AM Reporting Lab: [facility] [address] [facility] [address] Performing Lab: [facility] [address] [facility] [address] [facility] CBC BASOPHILS/ 100 LEUKOCYTES IN BLOOD BY AUTOMATED COUNT 0 04/22 Specimen Type: BLOOD No comment entered. Ordering Provider: AYDE COULTER Report Released Date/Time: Apr 22, 2024 10:03 AM Reporting Lab: [facility] [address] [facility] [address] Performing Lab: [place] [address] [facility] [address] [facility] CBC LYMPHOCYTE S [#/VOLUME] IN BLOOD BY AUTOMATED COUNT 1.88 10*3/uL 0.77 - 4.50 04/22 Specimen Type: BLOOD No comment entered. Ordering Provider: AYDE COULTER Report Released Date/Time: Apr 22, 2024 10:03 AM Reporting Lab: [address] [address] Performing Lab: [address] [address] [facility] CBC MONOCYTES [#/VOLUME] IN BLOOD BY AUTOMATED COUNT 0.70 10*3/uL 0.19 - 0.80 04/22 Specimen Type: BLOOD No comment entered. Ordering Provider: AYDE COULTER Report Released Date/Time: Apr 22, 2024 10:03 AM Reporting Lab: [address] [address] Performing Lab: [address] [phone] [place] [address] CBC NEUTROPHIL S [#/VOLUME] IN BLOOD BY AUTOMATED COUNT 4.53 10*3/uL 2.10 - 8.00 04/22 Specimen Type: BLOOD No comment entered. Ordering Provider: AYDE COULTER Report Released Date/Time: Apr 22, 2024 10:03 AM Reporting Lab: [address] [address] Performing Lab: [address] [address] [facility] CBC EOSINOPHIL S [#/VOLUME] IN BLOOD BY AUTOMATED COUNT 0.05 10*3/uL 0.00 - 0.60 04/22 Specimen Type: BLOOD No comment entered. Ordering Provider: AYDE COULTER Report Released Date/Time: Apr 22, 2024 10:03 AM Reporting Lab: [facility] [address] [facility] [address] Performing Lab: [facility] [address] [facility] [address] [facility] CBC BASOPHILS [#/VOLUME] IN BLOOD BY AUTOMATED COUNT 0.02 10*3/uL 0.00 - 0.20 04/22 Specimen Type: BLOOD No comment entered. Ordering Provider: AYDE COULTER Report Released Date/Time: Apr 22, 2024 10:03 AM Reporting Lab: [place] [address] [facility] [address] Performing Lab: [place] [address] [facility] [address] [facility] COMPREHE NSIVE METABOLI C PANEL CREATININE [MASS/VOLU ME] IN SERUM OR PLASMA 0.93 mg/dL 0.7 - 1.3 04/22 Specimen Type: PLASMA Comment: K result may show a positive bias due to hemolysis. Specimen slightly hemolyzed. Ordering Provider: AYDE COULTER Report Released Date/Time: Apr 22, 2024 10:03 AM Reporting Lab: [address] [address] Performing Lab: [place] [address] [facility] [address] [facility] COMPREHE NSIVE METABOLI C PANEL UREA NITROGEN [MASS/VOLU ME] IN SERUM OR PLASMA 10.6 mg/dL 9.0 - 25.0 04/22 Specimen Type: PLASMA Comment: K result may show a positive bias due to hemolysis. Specimen slightly hemolyzed. Ordering Provider: AYDE COULTER Report Released Date/Time: Apr 22, 2024 10:03 AM Reporting Lab: [facility] [address] [facility] [address] Performing Lab: [facility] [address] [facility] [address] [facility] COMPREHE NSIVE METABOLI C PANEL GLUCOSE [MASS/VOLU ME] IN SERUM OR PLASMA 89 mg/dL 72 - 99 04/22 Specimen Type: PLASMA Comment: K result may show a positive bias due to hemolysis. Specimen slightly hemolyzed. Ordering Provider: AYDE COULTER Report Released Date/Time: Apr 22, 2024 10:03 AM Reporting Lab: [facility] [address] [facility] [address] Performing Lab: [facility] [address] [place] [id number] COMPREHE NSIVE METABOLI C PANEL SODIUM [MOLES/VOL UME] IN SERUM OR PLASMA 139 meq/L 136 - 145 04/22 Specimen Type: PLASMA Comment: K result may show a positive bias due to hemolysis. Specimen slightly hemolyzed. Ordering Provider: AYDE COULTER Report Released Date/Time: Apr 22, 2024 10:03 AM Reporting Lab: [facility] [address] [place] [phone] Performing Lab: [facility] [address] [facility] [address] [facility] COMPREHE NSIVE METABOLI C PANEL POTASSIUM [MOLES/VOL UME] IN SERUM OR PLASMA 4.6 meq/L 3.5 - 5 04/22 Specimen Type: PLASMA Comment: K result may show a positive bias due to hemolysis. Specimen slightly hemolyzed. Ordering Provider: AYDE COULTER Report Released Date/Time: Apr 22, 2024 10:03 AM Reporting Lab: [facility] [address] [facility] [address] Performing Lab: [facility] [address] [facility] [address] [facility] COMPREHE NSIVE METABOLI C PANEL CHLORIDE [MOLES/VOL UME] IN SERUM OR PLASMA 106 meq/L 98 - 107 04/22 Specimen Type: PLASMA Comment: K result may show a positive bias due to hemolysis. Specimen slightly hemolyzed. Ordering Provider: AYDE COULTER Report Released Date/Time: Apr 22, 2024 10:03 AM Reporting Lab: [facility] [address] [facility] [address] Performing Lab: [facility] [address] [facility] [address] [facility] COMPREHE NSIVE METABOLI C PANEL CARBON DIOXIDE, TOTAL [MOLES/VOL UME] IN SERUM OR PLASMA 22 meq/L 22 - 31 04/22 Specimen Type: PLASMA Comment: K result may show a positive bias due to hemolysis. Specimen slightly hemolyzed. Ordering Provider: AYDE COULTER Report Released Date/Time: Apr 22, 2024 10:03 AM Reporting Lab: [facility] [address] [facility] [address] Performing Lab: [place] [address] [facility] [address] [facility] COMPREHE NSIVE METABOLI C PANEL CALCIUM [MASS/VOLU ME] IN SERUM OR PLASMA 9.7 mg/dL 8.4 - 10.4 04/22 Specimen Type: PLASMA Comment: K result may show a positive bias due to hemolysis. Specimen slightly hemolyzed. Ordering Provider: AYDE COULTER Report Released Date/Time: Apr 22, 2024 10:03 AM Reporting Lab: [facility] [address] [facility] [address] Performing Lab: [facility] [address] [facility] [address] [facility] COMPREHE NSIVE METABOLI C PANEL PROTEIN [MASS/VOLU ME] IN SERUM OR PLASMA 6.7 g/dL 6 - 8.6 04/22 Specimen Type: PLASMA Comment: K result may show a positive bias due to hemolysis. Specimen slightly hemolyzed. Ordering Provider: AYDE COULTER Report Released Date/Time: Apr 22, 2024 10:03 AM Reporting Lab: [facility] [address] [facility] [address] Performing Lab: [facility] [address] [facility] [address] [facility] COMPREHE NSIVE METABOLI C PANEL ALBUMIN [MASS/VOLU ME] IN SERUM OR PLASMA 4.1 g/dL 3.4 - 5 04/22 Specimen Type: PLASMA Comment: K result may show a positive bias due to hemolysis. Specimen slightly hemolyzed. Ordering Provider: AYDE COULTER F Report Released Date/Time: Apr 22, 2024 10:03 AM Reporting Lab: [address] [address] Performing Lab: [address] COMPREHE NSIVE METABOLI C PANEL BILIRUBIN. TOTAL [MASS/VOLU ME] IN SERUM OR PLASMA 0.5 mg/dL 0.2 - 1.2 04/22 Specimen Type: PLASMA Comment: K result may show a positive bias due to hemolysis. Specimen slightly hemolyzed. Ordering Provider: AYDE COULTER Report Released Date/Time: Apr 22, 2024 10:03 AM Reporting Lab: [address] [address] Performing Lab: [address] [address] [facility] COMPREHE NSIVE METABOLI C PANEL ALKALINE PHOSPHATAS E [ENZYMATIC ACTIVITY/V OLUME] IN SERUM OR PLASMA 92 U/L 40 - 150 04/22 Specimen Type: PLASMA Comment: K result may show a positive bias due to hemolysis. Specimen slightly hemolyzed. Ordering Provider: AYDE COULTER F Report Released Date/Time: Apr 22, 2024 10:03 AM Reporting Lab: [address] [address] Performing Lab: [address] [address] [facility] COMPREHE NSIVE METABOLI C PANEL ASPARTATE AMINOTRANS FERASE [ENZYMATIC ACTIVITY/V OLUME] IN SERUM OR PLASMA 26 U/L 5 - 34 04/22 Specimen Type: PLASMA Comment: K result may show a positive bias due to hemolysis. Specimen slightly hemolyzed. Ordering Provider: AYDE COULTER Report Released Date/Time: Apr 22, 2024 10:03 AM Reporting Lab: [facility] [address] [facility] [address] Performing Lab: [place] [address] [facility] [id number] [place] [address] COMPREHE NSIVE METABOLI C PANEL ALANINE AMINOTRANS FERASE [ENZYMATIC ACTIVITY/V OLUME] IN SERUM OR PLASMA 31 U/L 8 - 40 04/22 Specimen Type: PLASMA Comment: K result may show a positive bias due to hemolysis. Specimen slightly hemolyzed. Ordering Provider: AYDE COULTER Report Released Date/Time: Apr 22, 2024 10:03 AM Reporting Lab: [address] [address] Performing Lab: [place] [address] [facility] [phone] [place] [address] COMPREHE NSIVE METABOLI C PANEL GLOMERULAR FILTRATION RATE/1.73 SQ M.PREDICTE D [VOLUME RATE/AREA] IN SERUM, PLASMA OR BLOOD BY CREATININE -BASED FORMULA (CKD-EPI 2020) 85.6 60 04/22 Specimen Type: PLASMA Comment: K result may show a positive bias due to hemolysis. Specimen slightly hemolyzed. Ordering Provider: AYDE COULTER Report Released Date/Time: Apr 22, 2024 10:03 AM Reporting Lab: [place] [address] [facility] [address] Performing Lab: [place] [address] [place] [id number] URINE DRUG SCREEN (STL) ETHANOL [MASS/VOLU ME] IN URINE Negative mg/dL 0 - 20 03/27 Specimen Type: URINE Comment: The cut-off value for this test was laboratory developed and its performance characteris tics confirmed by the [facility] laboratory thru method comparison with reference laboratory and medication chart review. The laboratory is regulated under CLIA as qualified to perform high-comple xity testing. This test is used for clinical purposes in conjunction with other laboratory tests. Ordering Provider: Petra BRIDGES Report Released Date/Time: Mar 27, 2024 09:30 AM Reporting Lab: [facility] [address] [facility] [address] Performing Lab: [facility] [address] [place] [address] [facility] URINE DRUG SCREEN (STL) AMPHETAMIN E [PRESENCE] IN URINE BY SCREEN METHOD Negative ng/mL 03/27 Specimen Type: URINE Comment: The cut-off value for this test was laboratory developed and its performance characteris tics confirmed by the [facility] laboratory thru method comparison with reference laboratory and medication chart review. The laboratory is regulated under CLIA as qualified to perform high-comple xity testing. This test is used for clinical purposes in conjunction with other laboratory tests. Ordering Provider: Petra BRIDGES Report Released Date/Time: Mar 27, 2024 09:30 AM Reporting Lab: [address] [address] Performing Lab: [address] [address] [facility] URINE DRUG SCREEN (STL) BENZOYLECG ONINE [PRESENCE] IN URINE Negative ng/mL 03/27 Specimen Type: URINE Comment: The cut-off value for this test was laboratory developed and its performance characteris tics confirmed by the [facility] laboratory thru method comparison with reference laboratory and medication chart review. The laboratory is regulated under CLIA as qualified to perform high-comple xity testing. This test is used for clinical purposes in conjunction with other laboratory tests. Ordering Provider: Petra BRIDGES Report Released Date/Time: Mar 27, 2024 09:30 AM Reporting Lab: [address] [address] Performing Lab: [address] [address] [facility] URINE DRUG SCREEN (STL) BENZODIAZE PINES [PRESENCE] IN URINE BY SCREEN METHOD Negative ng/mL 03/27 Specimen Type: URINE Comment: The cut-off value for this test was laboratory developed and its performance characteris tics confirmed by the [facility] laboratory thru method comparison with reference laboratory and medication chart review. The laboratory is regulated under CLIA as qualified to perform high-comple xity testing. This test is used for clinical purposes in conjunction with other laboratory tests. Ordering Provider: Petra BRIDGES Report Released Date/Time: Mar 27, 2024 09:30 AM Reporting Lab: [address] [address] Performing Lab: [address] [address] [facility] URINE DRUG SCREEN (STL) CANNABINOI DS [PRESENCE] IN URINE BY SCREEN METHOD Negative ng/mL 03/27 Specimen Type: URINE Comment: The cut-off value for this test was laboratory developed and its performance characteris tics confirmed by the [facility] laboratory thru method comparison with reference laboratory and medication chart review. The laboratory is regulated under CLIA as qualified to perform high-comple xity testing. This test is used for clinical purposes in conjunction with other laboratory tests. Ordering Provider: Petra BRIDGES Report Released Date/Time: Mar 27, 2024 09:30 AM Reporting Lab: [place] [address] [facility] [address] Performing Lab: [address] [address] [facility] URINE DRUG SCREEN (STL) METHADONE [PRESENCE] IN URINE Negative ng/mL 03/27 Specimen Type: URINE Comment: The cut-off value for this test was laboratory developed and its performance characteris tics confirmed by the [facility] laboratory thru method comparison with reference laboratory and medication chart review. The laboratory is regulated under CLIA as qualified to perform high-comple xity testing. This test is used for clinical purposes in conjunction with other laboratory tests. Ordering Provider: Petra BRIDGES Report Released Date/Time: Mar 27, 2024 09:30 AM Reporting Lab: [address] [address] Performing Lab: [address] [address] [facility] URINE DRUG SCREEN (STL) OPIATES [PRESENCE] IN URINE BY SCREEN METHOD POSITIVE ng/mL 03/27 Specimen Type: URINE Comment: The cut-off value for this test was laboratory developed and its performance characteris tics confirmed by the [facility] laboratory thru method comparison with reference laboratory and medication chart review. The laboratory is regulated under CLIA as qualified to perform high-comple xity testing. This test is used for clinical purposes in conjunction with other laboratory tests. Ordering Provider: Petra BRIDGES Report Released Date/Time: Mar 27, 2024 09:30 AM Reporting Lab: [address] [address] Performing Lab: [address] [address] [facility] URINE DRUG SCREEN (STL) CREATININE [MASS/VOLU ME] IN URINE 255.3 mg/dL 63 - 166 03/27 H Specimen Type: URINE Comment: The cut-off value for this test was laboratory developed and its performance characteris tics confirmed by the [facility] laboratory thru method comparison with reference laboratory and medication chart review. The laboratory is regulated under CLIA as qualified to perform high-comple xity testing. This test is used for clinical purposes in conjunction with other laboratory tests. Ordering Provider: Petra BRIDGES Report Released Date/Time: Mar 27, 2024 09:30 AM Reporting Lab: [address] [address] Performing Lab: [address] [address] [facility] URINE DRUG SCREEN (STL) OXYCODONE CUTOFF [MASS/VOLU ME] IN URINE FOR SCREEN METHOD Negative ng/mL 03/27 Specimen Type: URINE Comment: The cut-off value for this test was laboratory developed and its performance characteris tics confirmed by the [facility] laboratory thru method comparison with reference laboratory and medication chart review. The laboratory is regulated under CLIA as qualified to perform high-comple xity testing. This test is used for clinical purposes in conjunction with other laboratory tests. Ordering Provider: Petra BRIDGES Report Released Date/Time: Mar 27, 2024 09:30 AM Reporting Lab: [facility] [address] [facility] [address] Performing Lab: [facility] [address] [place] [address] [facility] URINE DRUG SCREEN (STL) BUPRENORPH INE [PRESENCE] IN URINE Negative ng/mL 03/27 Specimen Type: URINE Comment: The cut-off value for this test was laboratory developed and its performance characteris tics confirmed by the [facility] laboratory thru method comparison with reference laboratory and medication chart review. The laboratory is regulated under CLIA as qualified to perform high-comple xity testing. This test is used for clinical purposes in conjunction with other laboratory tests. Ordering Provider: Petra BRIDGES Report Released Date/Time: Mar 27, 2024 09:30 AM Reporting Lab: [facility] [address] [facility] [address] Performing Lab: [address] [address] [facility] URINE DRUG SCREEN (STL) FENTANYL [PRESENCE] IN URINE Negative ng/mL 03/27 Specimen Type: URINE Comment: The cut-off value for this test was laboratory developed and its performance characteris tics confirmed by the [facility] laboratory thru method comparison with reference laboratory and medication chart review. The laboratory is regulated under CLIA as qualified to perform high-comple xity testing. This test is used for clinical purposes in conjunction with other laboratory tests. Ordering Provider: Petra BRIDGES Report Released Date/Time: Mar 27, 2024 09:30 AM Reporting Lab: [facility] [address] [facility] [address] Performing Lab: [place] [id number] [facility] [address] [facility] LIPID PANEL (STL) CHOLESTERO L [MASS/VOLU ME] IN SERUM OR PLASMA 176 mg/dL 0 - 200 03/27 Specimen Type: PLASMA No comment entered. Ordering Provider: JOYCELYN PEÑA Report Released Date/Time: December 11, 2023 10:25 AM Reporting Lab: [address] [address] Performing Lab: [address] [address] [facility] LIPID PANEL (STL) TRIGLYCERI DE [MASS/VOLU ME] IN SERUM OR PLASMA 242 mg/dL 0 - 150 03/27 H Specimen Type: PLASMA No comment entered. Ordering Provider: JOYCELYN PEÑA Report Released Date/Time: December 11, 2023 10:25 AM Reporting Lab: [address] [address] Performing Lab: [address] [address] [facility] LIPID PANEL (STL) CHOLESTERO L IN LDL [MASS/VOLU ME] IN SERUM OR PLASMA BY CALCULATIO N 95 mg/dL 03/27 Specimen Type: PLASMA No comment entered. Ordering Provider: JOYCELYN PEÑA Report Released Date/Time: December 11, 2023 10:25 AM Reporting Lab: [address] [address] Performing Lab: [address] [address] [facility] LIPID PANEL (STL) CHOLESTERO L IN HDL [MASS/VOLU ME] IN SERUM OR PLASMA 33 mg/dL 40 03/27 L Specimen Type: PLASMA No comment entered. Ordering Provider: JOYCELYN PEÑA Report Released Date/Time: December 11, 2023 10:25 AM Reporting Lab: [facility] [address] [facility] [address] Performing Lab: [facility] [address] [facility] [address] [facility] Vital Signs Combined list of inpatient and outpatient Vital Signs from Department of Defense and Veterans Affairs, ranging from 12 months to all on record, depending upon the facility. Vital Sign Value Date Comments Source SYSTOLIC BLOOD PRESSURE 141 09/18/2024 12:34:31 [facility] DIASTOLIC BLOOD PRESSURE 76 09/18/2024 12:34:31 [facility] PULSE OXIMETRY 98 09/18/2024 12:34:31 Yisel BRADLEY [facility] WEIGHT 225.4 09/18/2024 12:34:31 [facility] BMI 29 kg/m2 09/18/2024 12:34:31 [facility] PAIN 0 09/18/2024 12:34:31 [facility] TEMPERATURE 97.8 09/18/2024 12:34:31 [facility] PULSE 78 09/18/2024 12:34:31 [facility] RESPIRATION 18 09/18/2024 12:34:31 [facility] SYSTOLIC BLOOD PRESSURE 142 05/19/2024 11:27:02 [facility] DIASTOLIC BLOOD PRESSURE 70 05/19/2024 11:27:02 [facility] PULSE OXIMETRY 95 05/19/2024 11:27:02 Yisel [facility] WEIGHT 221.3 05/19/2024 11:27:02 [facility] Joseline [facility] BMI 28 kg/m2 05/19/2024 11:27:02 [facility] PAIN 6 05/19/2024 11:27:02 [facility] TEMPERATURE 98.1 05/19/2024 11:27:02 [facility] PULSE 72 05/19/2024 11:27:02 [facility] Joseline [facility] RESPIRATION 20 05/19/2024 11:27:02 [facility] SYSTOLIC BLOOD PRESSURE 134 05/03/2024 05:25:00 [facility] DIASTOLIC BLOOD PRESSURE 68 05/03/2024 05:25:00 [facility] PULSE OXIMETRY 94 05/03/2024 05:25:00 [facility] WEIGHT 210.1 05/03/2024 05:25:00 [facility] BMI 27 kg/m2 05/03/2024 05:25:00 [facility] PAIN 0 05/03/2024 05:25:00 [facility] TEMPERATURE 98.2 05/03/2024 05:25:00 [facility] PULSE 63 05/03/2024 05:25:00 [facility] RESPIRATION 20 05/03/2024 05:25:00 [facility] SYSTOLIC BLOOD PRESSURE 163 05/02/2024 10:09:45 [facility] DIASTOLIC BLOOD PRESSURE 80 05/02/2024 10:09:45 [facility] PULSE OXIMETRY 98 05/02/2024 10:09:45 [facility] WEIGHT 215 05/02/2024 10:09:45 [facility] BMI 28 kg/m2 05/02/2024 10:09:45 [facility] PAIN 7 05/02/2024 10:09:45 [facility] HEIGHT 74 05/02/2024 10:09:45 [facility] TEMPERATURE 97.8 05/02/2024 10:09:45 [facility] PULSE 52 05/02/2024 10:09:45 [facility] RESPIRATION 10 05/02/2024 10:09:45 [facility] SYSTOLIC BLOOD PRESSURE 142 04/22/2024 09:54:28 [facility] DIASTOLIC BLOOD PRESSURE 75 04/22/2024 09:54:28 [facility] PULSE OXIMETRY 98 04/22/2024 09:54:28 [facility] WEIGHT 219.2 04/22/2024 09:54:28 [facility] BMI 28 kg/m2 04/22/2024 09:54:28 [facility] HEIGHT 74 04/22/2024 09:54:28 [facility] TEMPERATURE 97.9 04/22/2024 09:54:28 [facility] PULSE 62 04/22/2024 09:54:28 [facility] RESPIRATION 18 04/22/2024 09:54:28 [facility] Encounters Combined list of: 1) Encounters from Department of [facility] Affairs facilities going backup to the last 18 months, not all [place] inpatient encounters are included; 2) Encounters from the Department of [facility] facilities going backup to 280 months. 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, unspeci FRANSISCO Hernández 05/10 [facility] [place]MMUNIZATI [place] ADMIN [id number] Diagnos is: ICD-10- CM Z23 Encount er for immuniz ation BRYAN NGUYEN 05/10 [facility] Outpatient Encounter [id number] 05/10 [facility] Outpatient Encounter [id number] 05/16 [facility] Outpatient Encounter [id number] Peter HERNANDEZJESSICA S 05/18 [facility] Outpatient Encounter [id number] 05/22 [facility] Outpatient Encounter [id number] 05/22 [facility] Outpatient Encounter [id number] 05/30 [facility] Outpatient Encounter [id number] DAVID DELACRUZ 06/18 [facility] Outpatient Encounter [id number] RU LAU 07/06 [facility] EMERGENCY DEPT VISIT MOD MDM [id number] Diagnos is: ICD-10- CM J20.9 Acute bronchi tis, unspeci fied LINDA TIWARI 07/06 [facility] Outpatient Encounter [id number] LINDA TIWARI 07/06 [facility] N [facility] Outpatient Encounter [id number] Petra GRANADOS 07/16 [facility] N [facility] Outpatient Encounter [id number] 07/16 [facility] EMERGENCY DEPT VISIT LOW MDM [id number] Diagnos is: ICD-10- CM J06.9 Acute upper respira tory infecti on, unspeci fied AYLIN MONTANO 07/25 [facility] Outpatient Encounter [id number] AYLIN MONTANO 07/25 [facility] Outpatient Encounter [id number] 07/31 [facility] Outpatient Encounter [id number] Meghana LOUIE JR 07/31 [facility] Outpatient Encounter [id number] 08/14 [facility] OFFICE O/P EST HI 40 MIN [id number] Diagnos is: ICD-10- CM K40.90 Unil inguina l hernia, w/o obst or gangr, not spcf as recur BROWN,TAYL OR C 08/14 [facility] [place] MDM [id number] Diagnos is: ICD-10- CM L76.34 Postpro c seroma of skin, subcu followi ng other procedu re GREGORIO OMER PAMELA 08/14 [facility] Outpatient Encounter [id number] GREGORIO OMER 08/14 [facility] Outpatient Encounter [id number] ROSEMARIE RODAS 08/17 [facility] OFFICE O/P EST MOD 30 MIN [id number] Diagnos is: ICD-10- CM K40.20 Bi inguina l hernia, w/o obst or gangren e, not spcf as recur FRANSISCO ROMEO R 08/30 [facility] N [facility] Outpatient Encounter [id number] 08/30 [facility] OFFICE O/P EST MOD 30 MIN [id number] Diagnos is: ICD-10- CM I10 Essenti al (primar y) hyperte LAVON Baeza CA E 08/31 [facility] IMG RTA DETCJ/MNTR DS STAFF [id number] Diagnos is: ICD-10- CM Z13.5 Encount er for screeni ng for eye and ear disorde rs SORIN OLSEN O 08/31 [facility] IMG RTA DETC/MNTR DS PHY/QHP [id number] Diagnos is: ICD-10- CM Z13.5 Encount er for screeni ng for eye and ear disorde rs ALEJANDRO ASHTON R 08/31 [facility] Outpatient Encounter [id number] SORIN OLSEN O 09/03 [facility] Outpatient Encounter [id number] Diagnos is: ICD-10- CM K40.90 Unil inguina l hernia, w/o obst or gangr, not spcf as recur ALEAH GOMES 09[facility]03 [facility] Encounter [id number] KEITH SHERWOOD 09/07 [facility] Outpatient Encounter [id number] 09/07 [facility] HC PRO PHONE CALL 5-10 MIN [id number] Diagnos is: ICD-10- CM K40.20 Bi inguina l hernia, w/o obst or gangren e, not spcf as recur DELFINA BENZ 09/07 [facility] OFF[facility] O/P EST MOD 30 MIN [id number] Diagnos is: ICD-10- CM Z01.818 Encount er for other preproc edural examina FROYLAN May P 09/10 [facility] Outpatient Encounter [id number] 09/10 [facility] MEASURE BLOOD OXYGEN LEVEL [id number] Diagnos is: ICD-10- CM K40.90 Unil inguina l hernia, w/o obst or gangr, not spcf as recur ISH SOLORIO 09/10 [facility] OFFICE O/P EST MOD 30 MIN [id number] Diagnos is: ICD-10- CM K40.90 Unil inguina l hernia, w/o obst or gangr, not spcf as recur FRANSISCO ORMEO 09/10 [facility] Outpatient Encounter [id number] 09/10 [facility] Outpatient Encounter [id number] FRANSISCO ROMEO 09/10 [facility] EXPLORE SCROTUM [id number] Shannan LIMA M 09/10 [facility] Encounter [id number] Shannan LIMA M 09/10 [facility] Outpatient Encounter [id number] GIANNA BETANCOURT 09/10 [facility] Out[facility] Encounter [id number] EMANUEL MONTANO 09/10 [facility] Inpatient Encounter [id number] Admit Reason: RIGHT INGUINA L MASS Jesse GONZALEZ 09/10 [facility] Inpatient Encounter [id number] DUKE PAULSON 09/10 [facility] Encounter [id number] Jesse GONZALEZ 09/10 [facility] In[facility] Encounter [id number] [id number] DUKE PAULSON 09/10 [facility] Inpatient Encounter [id number] Jesse GONZALEZ E 09/10 [facility] Inpatient Encounter [id number] 1 TAVO THRASHER 09/11 [facility] Inpatient Encounter [id number] TAVO THRASHER R 09/11 [facility] Inpatient Encounter [id number] TAVO THRASHER 09/11 [facility] Inpatient Encounter [id number] HALLIE LOPEZ R 09/11 [facility] Inpatient Encounter [id number] HALLIE LOPEZ R 09/11 [facility] Outpatient Encounter [id number] MARIELLE LARKIN 09/11 [facility] HC PRO PHONE CALL 5-10 MIN [id number] Diagnos is: ICD-10- CM K40.90 Unil inguina l hernia, w/o obst or gangr, not spcf as recur LAVON MENDOZA E 09/12 [facility] [employer] OFFICE O/P NEW LOW 30 MIN [id number] Diagnos is: ICD-10- CM L57.0 Actinic keratos is Damaso SALAZAR K 09/18 [facility] Outpatient Encounter [id number] FILIPE WALTERS M 09/21 [facility] Outpatient Encounter [id number] FRANSICO CABRAL 09/24 [facility] O/P EST MOD 30 MIN [id number] Diagnos is: ICD-10- CM L72.0 Epiderm al cyst FRANSISCO ROMEO R [facility] Outpatient Encounter [id number] 09/29 [facility] EMERGENCY DEPT VISIT MOD MDM [id number] Diagnos is: ICD-10- CM R05.1 Acute cough MUDALLAL,O MAR 09/29 [facility] Outpatient Encounter [id number] MUDALLAL,O MAR 09/29 [facility] Outpatient Encounter [id number] NOLA FERRARI 09/30 [facility] Outpatient Encounter [id number] Diagnos is: ICD-10- CM J44.1 Chronic obstruc tive pulmona ry disease w (acute) exacerb Yisel Robbins MD 09/30 [facility] DENTAL BITEWING SINGLE IMAGE [id number] Diagnos is: ICD-10- CM K02.7 Dental root caries JOON BRADYShannan Lambert 10/07 [facility] Outpatient Encounter [id number] 10/07 [facility] EMERGENCY DEPT VISIT [facility] [id number] Diagnos is: ICD-10- CM J18.9 Pneumon ia, unspeci fied PETTY Adorno 10/16 [facility] Outpatient Encounter [id number] 10/16 [facility] Outpatient Encounter [id number] 10/16 [facility] Inpatient Encounter [id number] KATY JOSEPH 10/16 [facility] Inpatient Encounter [id number] 10/16 [facility] Inpatient Encounter [id number] [id number] Admit Reason: COPD EXACERB ATION KIRSTEN,FELIX 10/16 Discharge from inpatient treatment to the [facility] Inpatient Encounter 45191-5.65 [id number] 3 MANOHAR CEDEÑO 10/16 [facility] Inpatient Encounter 64389-9.65 [id number] 7 MANOHAR CEDEÑO 10/16 [facility] Inpatient Encounter 72583-7.65 [id number] 7 MANOHAR CEDEÑO 10/16 [facility] Inpatient Encounter 21410-9.65 [id number] 4 AVALOS,THER VICKY A 10/17 [facility] Inpatient Encounter 40664-0.65 [id number] 1 AVALOS,THER VICKY A 10/17 [facility] Inpatient Encounter 92942-7.65 [id number] 3 AVALOS,THER VICKY A 10/17 [facility] Inpatient Encounter 23897-8.65 [id number] 0 AVALOS,THER VICKY A 10/17 [facility] OT EVAL LOW COMPLEX 30 MIN 46830-2.65 [id number] 8 Diagnos is: ICD-10- CM J44.1 Chronic obstruc tive pulmona ry disease w (acute) exacerb ation NATHANAEL,AD AM J 10/17 [facility] [employer] INCLUSION INTERN INDIVIDU 60278-3.65 [id number] 8 Diagnos is: ICD-10- CM 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 PT EVAL LOW COMPLEX 20 MIN 83278-9.65 [id number] 3 Diagnos is: ICD-10- CM R06.00 Dyspnea , unspeci fied AILIN MENDEZ 10/17 [facility] Inpatient Encounter 08657-0.65 [id number] 7 JACOB DIAZ 10/17 [facility] Inpatient Encounter 83426-2.65 [id number] 2 SA HERBERTH HENDRICKS 10/17 [facility] Inpatient Encounter 70935-3.65 [id number] 6 PATRICIA CONNOLLY 10/17 [facility] Inpatient Encounter 37353-3.65 [id number] 4 AVALOS,THER VICKY A 10/17 [facility] Inpatient Encounter 24663-0.65 [id number] 9 AVALOS,THER VICKY A 10/17 [facility] Inpatient Encounter 60952-3.65 [id number] 2 AVALOS,THER VICKY A 10/17 [facility] Inpatient Encounter 44133-2.65 [id number] 2 AVALOS,THER VICKY A 10/18 [facility] Inpatient Encounter 98523-7.65 [id number] 2 Petra HERNANDEZ 10/18 [facility] Inpatient Encounter 36889-7.65 [id number] 0 BAILEYBETTY PERRY A 10/18 [facility] Inpatient Encounter 52829-6.65 [id number] 9 SA HERBERTH HENDRICKS 10/18 [facility] Inpatient Encounter 19273-8.65 [id number] 1 SA HERBERTH HENDRICKS 10/18 [facility] Inpatient Encounter 32250-7.65 [id number] 3 PATRICIA CONNOLLY 10/18 [facility] Inpatient Encounter 20728-8.65 [id number] 4 EMMY JI 10/18 [facility] Inpatient Encounter 90315-0.65 [id number] 1 ANNA PEÑA 10/18 [facility] Inpatient Encounter 63755-7.65 [id number] 6 Lit FLOREZ 10/19 [facility] Inpatient Encounter 10380-6.65 [id number] 5 MIMI PADRON 10/19 [facility] Inpatient Encounter 88993-9.65 [id number] 9 MIMI PADRON 10/19 [facility] Inpatient Encounter 54492-0.65 [id number] 0 MIMI PADRON L 10/19 [facility] Inpatient Encounter 18977-1.65 [id number] 3 JACOB DIAZ 10/19 [facility] Inpatient Encounter 01134-0.65 [id number] 1 Lit FLOREZ 10/20 [facility] Inpatient Encounter 32208-2.65 [id number] 8 MIMI PADRON L 10/20 [facility] Inpatient Encounter 24765-2.65 [id number] 6 MIMI PADRON L 10/20 [facility] Inpatient Encounter 04096-7.65 [id number] 0 WENDI GUADARRAMAErnie DIAZ 10/20 [facility] Inpatient Encounter 81343-0.65 [id number] 3 MIMI PADRON L 10/20 [facility] Inpatient Encounter 10466-3.65 [id number] 8 ANNA PEÑA 10/20 [facility] Inpatient Encounter 53349-2.65 [id number] 1 MAGGIE MARTINEZ 10/21 [facility] Inpatient Encounter 53409-3.65 [id number] 4 MAGGIE MARTINEZ Meghana 10/21 [facility] LARYNGOSCO PY TELESCOPIC 26004-2.65 [id number] 6 Diagnos is: ICD-10- CM R49.8 Other voice and resonan ce disorde Keyon Mccarthy 10/21 [facility] Inpatient Encounter 13386-4.65 [id number] 1 CROW CARLSON RA 10/21 [facility] HC PRO PHONE CALL 21-30 MIN [id number] [id number] Diagnos is: ICD-10- CM J44.9 Chronic obstruc tive pulmona ry disease , unspeci fied RUPERT,ARM SHARON 10/22 [facility] Outpatient Encounter 49568-4.65 [id number] 7 JENNY MCFARLAND 10/23 [facility] Outpatient Encounter [id number] [id number] Diagnos is: ICD-10- CM I10 Essenti al (primar y) hyperte nsion NATALIO BRIDGES 10/23 [facility] O/P EST LOW 20 MIN 88775-3.65 [id number] Diagnos is: ICD-10- CM I10 Essenti al (primar y) hyperte nsion NATALIO BRIDGES 10/25 [facility] PULMONARY STRESS TESTING 02884-3.65 [id number] 9 Diagnos is: ICD-10- CM E11.40 Type 2 diabete s mellitu s with diabeti c neuropa thy, unsp LEYVA,MONET KEVIN R 11/13 [facility] OFF/OP CONSLTJ NEW/[place] HI 55 27255-9.65 [id number] 5 Diagnos is: ICD-10- CM R06.00 Dyspnea , unspeci fied Shannan PALACIO NDREA 11/13 [facility] Outpatient Encounter 22593-6.65 [id number] 4 NATALIO BRIDGES 11/13 [facility] OFF/OP CNSLTJ NEW/EST LOW 30 31587-7.65 [id number] 5 Diagnos is: ICD-10- CM J44.9 Chronic obstruc tive pulmona ry disease , unspeci fied CONTRERAS RI 11/13 [facility] Outpatient Encounter 92827-5.65 [id number] 5 11/13 [facility] OFF/OP CNSLT NEW/EST MOD 40 19158-6.65 [id number] 4 Diagnos is: ICD-10- CM R06.02 Shortne ss of breath ANGELICA PEÑA S 11/18 [facility] Outpatient Encounter [id number] [id number] 8 11/18 [facility] Outpatient Encounter 01849-0.65 [id number] 4 FRANSICO CABRAL S 11/19 [facility] EMERGENCY DEPT VISIT MOD MDM 46520-0.65 [id number] 7 Diagnos is: ICD-10- CM R11.2 Nausea with vomitin g, unspeci fied MATTAR,GALLITO INE 11/29 [facility] Outpatient Encounter 01918-5.65 [id number] 0 11/29 [facility] Outpatient Encounter 60698-5. [id number] 9 11/29 [facility] OFFICE O/P EST HI 40 MIN 06633-1.65 [id number] 9 Diagnos is: ICD-10- CM N50.82 Scrotal pain AFT,REBECC A 11/29 [facility] Outpatient Encounter [id number] 4 ESSENCEGALLITO PACHECO INE 11/29 [facility] MYOCRD STRAIN IMG SPCKL TRCK 18557-0. [id number] 1 Diagnos is: ICD-10- CM R07.9 Chest pain, unspeci fied LUIS EDUARDO MATHIS SH 12/10 [facility] Outpatient Encounter 73253-3. [id number] 4 BREN JOE 12/10 [facility] OFF/OP CNSLTJ NEW/EST MOD 40 99500-7.65 [id number] 8 Diagnos is: ICD-10- CM B35.1 Tinea unguium JACKIE CORDERO 12/12 [facility] Outpatient Encounter [id number]. [id number] 4 12/12 [facility] COMPREHENS VE ORAL EVALUATION 92473-6. [id number] 3 Diagnos is: ICD-10- CM Z01.20 Encount er for dental exam and cleanin g w/o abnorma l finding s SA JOYCE BLE A 12/16 [facility] Outpatient Encounter 12973-6.65 [id number] 4 LIU NOVA E W 12/24 [facility] OFFICE O/P EST MOD 30 MIN 84976-0.65 [id number] 9 Diagnos is: ICD-10- CM K40.91 Unilate ral inguina l hernia, w/o obst or gangren e, recurre nt JAI WASHBURN E III 01/02 [facility] Outpatient Encounter [id number] [id number] 8 Ernie FERREIRA 01/07 [facility] Outpatient Encounter 65613-3.65 [id number] 3 BREN JOE 01/13 [facility] CARDIOVASC ULAR STRESS TEST 97079-4.65 [id number] 0 Diagnos is: ICD-10- CM I20.9 Angina pectori s, unspeci fied DOC WILBURN A 01/13 [facility] Outpatient Encounter 15537-3.65 [id number] 8 01/13 [facility] Outpatient Encounter 39582-9.65 [id number] 2 01/14 [facility] HC PRO PHONE CALL 5-10 MIN 09103-5.65 [id number] 5 Diagnos is: ICD-10- CM J44.9 Chronic obstruc tive pulmona ry disease , unspeci fied Wilberto HINSON A 01/14 [facility] Outpatient Encounter 63264-8.65 [id number] 7 LAVON MENDOZA E 01/14 [facility] QNHP OL DIG ASSMT&MGMT 11-20 58856-7.65 [id number] 8 Diagnos is: ICD-10- CM R07.9 Chest pain, unspeci fied Marleny GRANADOS L 01/14 [facility] Outpatient Encounter 49182-2.65 [id number] 7 SEBASTIAN OCAMPO P 01/20 [facility] Outpatient Encounter 94118-7.65 [id number] 0 01/22 [facility] COMPRE OPH EXAM EST PT 1/> 15948-6.65 [id number] 1 Diagnos is: ICD-10- CM H43.813 Vitreou s binh heard A LLISON E 02/10 [facility] OFFICE O/P EST HI 40 MIN 97931-9.65 [id number] 4 Diagnos is: ICD-10- CM R06.02 Shortne ss of breath ANGELICA PEÑA IE S 02/21 [facility] Outpatient Encounter 21979-0.65 [id number] 0 JUSTIN CALVO D 02/21 [facility] Outpatient Encounter 94821-2.65 [id number] 3 JOSE SULLIVAN 02/21 [facility] Outpatient Encounter 46217-3.65 [id number] 6 IVKKIEUGENE Cuellar 02/22 [facility] Outpatient Encounter 22675-2.65 [id number] 3 02/24 [facility] OFFICE O/P EST MOD 30 MIN 62728-1.65 [id number] 2 Diagnos is: ICD-10- CM R42 Dizzine ss and giddine ss DOC WILBURN 03/20 [facility] Outpatient Encounter 13000-2.65 [id number] 4 03/25 [facility] Outpatient Encounter 49863-5.65 [id number] 4 NATALIO BRIDGES 03/26 [facility] Outpatient Encounter 17336-9.65 [id number] 3 03/26 [facility] OFFICE O/P EST MOD 30 MIN 82669-8.65 [id number] 8 Diagnos is: ICD-10- CM J44.9 Chronic obstruc tive pulmona ry disease , unspeci fiShannan Hadley NDRGEORGE 03/27 [facility] Outpatient Encounter 49454-4.65 [id number] 2 03/30 [facility] Outpatient Encounter 35877-0.65 [id number] 3 04/01 [facility] OFFICE O/P EST MOD 30 MIN 61305-8.65 [id number] 1 Diagnos is: ICD-10- CM K40.90 Unil inguina l hernia, w/o obst or gangr, not spcf as recur JAI WASHBURN III 04/10 [facility] Outpatient Encounter 37910-3.65 [id number] 5 04/21 [facility] OFFICE O/P EST HI 40 MIN 52667-2.65 [id number] 8 Diagnos is: ICD-10- CM Z01.818 Encount er for other preproc edural examina tion MIHIR COULTER 04/22 [facility] Outpatient Encounter 25852-4.65 [id number] 4 04/22 [facility] HC PRO PHONE CALL 5-10 MIN 31657-1.65 [id number] 6 Diagnos is: ICD-10- CM K40.91 Unilate ral inguina l hernia, w/o obst or gangren e, recurre nt PEOPLEANGELY Morillo C 04/29 [facility] MEASURE BLOOD OXYGEN LEVEL 54104-6.65 [id number] 9 Diagnos is: ICD-10- CM K40.90 Unil inguina l hernia, w/o obst or gangr, not spcf as recur FILI EDWARDS 05/02 [facility] Outpatient Encounter 81450-7.65 [id number] 7 05/02 [facility] OFFICE O/P EST SF 10 MIN 21007-8.65 [id number] 4 Diagnos is: ICD-10- CM Z01.818 Encount er for other preproc edural examina tion MAGDY ,MAURILIO 05/02 [facility] Outpatient Encounter 58595-8.65 [id number] 9 CHRISTINA YOUNG JACOB Granda 05/02 [facility] OFFICE O/P EST HI 40 MIN 63016-6.65 [id number] 3 Diagnos is: ICD-10- CM K40.91 Unilate ral inguina l hernia, w/o obst or gangren e, recurre nt JAI WASHBURN LLIAM E III 05/02 [facility] Outpatient Encounter 13471-6.65 [id number] 7 JAI WASHBURN LLIAM E III 05/02 [facility] Outpatient Encounter 55047-2.65 [id number] 1 05/02 [facility] Outpatient Encounter 21974-9.65 [id number] 9 Diagnos is: ICD-10- CM I10 Essenti al (primar y) hyperte nsion JAI WASHBURN LLIAM E III 05/02 [facility] LAP ING HERNIA REPAIR RECUR 50265-3.65 [id number] 9 LINDA VILLALTA 05/02 [facility] Outpatient Encounter 37361-3.65 [id number] 6 LINDA VILLALTA 05/02 [facility] Outpatient Encounter 37883-0.65 [id number] 2 SANDRA GRACIA 05/02 [facility] Encounter 13128-5.65 [id number] 7 DAVID ZUNIGA 05/02 [facility] Inpatient Encounter 32345-8.65 [id number] 0 Admit Reason: S/P ROBTIC INJUINA L JAI DOWNEY III 05/02 [facility] Inpatient Encounter 19113-5.65 [id number] 6 KUNAL FRANKLIN 05/02 [facility] Inpatient Encounter 54360-8.65 [id number] 1 MATEUS RILEY 05/02 [facility] Inpatient Encounter 99596-3.65 [id number] 5 KUNAL FRANKLIN 05/02 [facility] Encounter 64208-5.65 [id number] 2 PAULINA QUEEN 05/02 [facility] Inpatient Encounter 22264-0.65 [id number] 6 JAMIE DELEON 05/02 [facility] Inpatient Encounter 06022-5.65 [id number] 6 JAMIE DELEON 05/02 [facility] Inpatient Encounter 61473-9.65 [id number] 6 JAMIE DELEON 05/02 [facility] Inpatient Encounter 12020-8.65 [id number] 1 05/03 [facility] Inpatient Encounter 68443-7.65 [id number] 5 JAMIE DELEON E 05/03 [facility] Inpatient Encounter 88175-5.65 [id number] 7 PAULINA QUEEN J 05/03 [facility] OFFICE O/P EST LOW 20 MIN 08178-8.65 [id number] 6 Diagnos is: ICD-10- CM K40.90 Unil inguina l hernia, w/o obst or gangr, not spcf as recur SKYE CERVANTES I A 05/03 [facility] Inpatient Encounter 12768-9.65 [id number] 0 05/03 [facility] Inpatient Encounter 20747-5.65 [id number] 9 SKYE CERVANTES I A 05/03 [facility] Outpatient Encounter 76756-8.65 [id number] 2 MARIELLE LARKIN T 05/05 [facility] Outpatient Encounter 38189-5.65 [id number] 9 05/05 [facility] HC PRO PHONE CALL 11-20 MIN 87253-3.65 [id number] Diagnos is: ICD-10- CM K40.90 Unil inguina l hernia, w/o obst or gangr, not spcf as recur LAVON MENDOZA CA E 05/06 [facility] Outpatient Encounter 52129-0.65 [id number] 8 05/14 [facility] Outpatient Encounter 98641-5.65 [id number] 4 Ernie FERREIRA 05/16 [facility] OFFICE O/P EST MOD 30 MIN 87504-7.65 [id number] Diagnos is: ICD-10- CM I10 Essenti al (primar y) hyperte nsion FLYNN MANNING 05/19 [facility] Outpatient Encounter 16201-4.65 [id number] 7 NATALIO BRIDGES 05/22 [facility] ODONTOPLAS TY 1-2 TEETH 72470-5.65 [id number] 7 Diagnos is: ICD-10- CM K02.7 Dental root caries TEDDYANDRESYULY HOWELL 05/27 [facility] Outpatient Encounter 20159-5.65 [id number] 5 06/20 [facility] PERIODIC ORAL EVAL EST 66578-5.65 [id number] 8 Diagnos is: ICD-10- CM Z01.20 Encount er for dental exam and cleanin g w/o abnorma l finding s MUNTEAN,SA BLE A 07/11 [facility] Outpatient Encounter 28770-3.65 [id number] 9 07/21 [facility] Outpatient Encounter 55901-9.65 [id number] 7 08/07 [facility] Outpatient Encounter 59983-4.65 [id number] 3 08/15 [facility] N [facility] Outpatient Encounter 13014-0.65 [id number] 5 08/20 [facility] Outpatient Encounter 46266-3.65 [id number] 9 08/22 [facility] Outpatient Encounter 97752-1.65 [id number] 2 ANURADHA MORENOA C 09/04 [facility] POST >=4SRFC RESINBASE CMPST 46479-5.65 [id number] 9 Diagnos is: ICD-10- CM K02.52 Dental caries on pit and fissure surfc penetra t into dentin SA JHONNY COOK 09/05 [facility] OFFICE O/P EST MOD 30 MIN 70895-6.65 [id number] 0 Diagnos is: ICD-10- CM J44.9 Chronic obstruc tive pulmona ry disease , unspeci fied Shannan PALACIO NDREA 09/18 [facility] Outpatient Encounter 71790-3.65 [id number] 4 09/22 [facility] Outpatient Encounter 26983-2.65 [id number] 5 09/22 [facility] Outpatient Encounter 50633-3.65 [id number] 5 10/03 [facility] Outpatient Encounter 85109-8.65 [id number] 0 10/07 [facility] Outpatient Encounter 25865-7.65 [id number] 6 10/18 [facility] Outpatient Encounter 02240-4.65 [id number] 10/27 [facility] Outpatient Encounter 43801-4.65 [id number] 5 10/27 [facility] Procedures Combined list of: 1) Procedures from Department of Veterans Affairs facilities going back up to thelast 18 months, not all [place] non-surgical procedures are included; 2) All procedures from the Department of Defense facilities. Procedure Procedure Type Code Date Perfomer Comments Sourc e robotic right inguinal hernia repair with mesh LAP ING HERNIA REPAIR RECUR 05410 4 GEN WASHBURN AM III RT-RIGHT SIDE [facility] RIGHT GROIN EXPLORATION WITH EXCISION OF CYST EXPLORE SCROTUM 09637 4 CELENA GONZALEZ E [facility] Social History Combined list of available smoking, tobacco, and other social history from Department of Defense and Veterans Affairs facilities. Social History Type Response Date Comment Sourc e Tobacco smoking status NHIS VA-TOBACCO FORMER USER 05/19/2024 [facility] History of tobacco use VA-TOBACCO QUIT 15 YRS OR MORE 05/19/2024 [facility] History of tobacco use ORYX ADMIT TOBACCO SCREEN NO 10/17/2023 [facility] History of tobacco use ORYX ADMIT TOBACCO SCREEN NO 10/17/2023 [facility] History of tobacco use VA-TOBACCO FORMER USER 03/20/2023 [facility] History of tobacco use ORYX ADMIT TOBACCO SCREEN NO 12/31/2021 [facility] History of tobacco use VA-TOBACCO FORMER USER 12/29/2021 [facility] History of tobacco use VA-TOBACCO QUIT 15 YRS OR MORE 12/29/2020 [facility] History of tobacco use VA-TOBACCO USE DECLINED TO ANSWER 04/22/2020 [facility] History of tobacco use VA-TOBACCO QUIT 15 YRS OR MORE 12/06/2018 [facility] History of tobacco use QUIT TOBACCO >7 YEARS AGO 01/23/2018 [facility] History of tobacco use QUIT TOBACCO >7 YEARS AGO 10/26/2017 [facility] History of tobacco use QUIT TOBACCO >7 YEARS AGO 06/29/2017 [facility] History of tobacco use QUIT TOBACCO >7 YEARS AGO 04/06/2017 [facility] History of tobacco use QUIT TOBACCO >7 YEARS AGO 04/06/2017 [facility] History of tobacco use QUIT TOBACCO >7 YEARS AGO 03/21/2017 [facility] History of tobacco use QUIT TOBACCO >7 YEARS AGO 02/28/2017 [facility] History of tobacco use QUIT TOBACCO >7 YEARS AGO 05/17/2016 [facility] History of tobacco use QUIT TOBACCO >7 YEARS AGO 04/20/2015 [facility] History of tobacco use QUIT TOBACCO >7 YEARS AGO 01/20/2014 [facility] History of tobacco use QUIT TOBACCO >7 YEARS AGO 01/02/2013 [facility] History of tobacco use LIFETIME NON-USER OF TOBACCO 05/25/2010 [facility] History of tobacco use QUIT TOBACCO >12 MO and <7 YRS AGO 08/17/2009 [facility] History of tobacco use QUIT TOBACCO >12 MO and <7 YRS AGO 09/17/2008 [facility] History of tobacco use QUIT TOBACCO >12 MO and <7 YRS AGO 09/20/2006 [facility] History of tobacco use CURRENT NON-TOBACCO USER-HX OF USE 06/05/2006 [facility] History of tobacco use CURRENT NON-TOBACCO USER-HX OF USE 07/14/2005 [facility] History of tobacco use CURRENT NON-TOBACCO USER-HX OF USE 10/23/2004 [facility] History of tobacco use CURRENT NON-TOBACCO USER-HX OF USE 04/07/2004 [facility] History of tobacco use CURRENT TOBACCO USER 12/18/2002 [facility] History of tobacco use CURRENT NON-TOBACCO USER-RECENTLY QUIT 04/07/2002 quit 3 mo ago [facility] History of tobacco use CURRENT TOBACCO USER 11/19/2001 [facility] History of tobacco use CURRENT TOBACCO USER 07/16/2001 [facility] History of tobacco use CURRENT TOBACCO USER 06/18/2001 [facility] History of tobacco use CURRENT TOBACCO USER 05/20/2001 [facility] Plan of Care List of future care activities from Department [facility] facilities. Additional future care activities may be listed in the Assessment and Plan section. Date/Time Care Activity Care Activity Detail Facili ty 11/15/2024 AMBULATORY - NONE AMBULATORY - NONE [facility] Advance Directives List of completed, amended, or rescinded Advance Directives on record at Department [facility] facilities. An actual copy of the Directive is not included. Date Advance Directive Provider Source 02/18/2018 [facility] DIRECTIVE DISCUSSION EMMETT CAMILO [facility]
--- OUTSIDE RECORDS SUMMARY | 2024-11-02 11:51 | XMS_ITS | Encounter Summary ---
Author Name [facility] Organization [facility] Address [address] [place] [address] Care Team Providers Care Blockers Skiver Name Role Phone NATALIO BRIDGES [facility] Provider [facility] Insurance Providers: All historical and current Section [...] PART B Oct 28, 2001 PART B [id number] [phone] Petra DUQUE PATIENT MEDICARE (WNR) MEDICARE (M) PART A Oct 28, 2001 PART A [id number] Petra DUQUE PATIENT MEDICARE (WNR) MEDICARE (M) PART A Oct 28, 2001 PART A [id number] Petra DUQUE PATIENT Selected Encounter This section includes the information on record at [place] for the Encounter. Date/Time Encounter Type Encounter Description Reason Provider Source May 02, 2024 02:12 PM Outpatient Encounter GENERAL SURGERY YARIEL VILLALTA IHErnie Encounter Template Text not used by [place] Plan of Treatment: Future Appointments (+ 6 months) and Future Tests (+/- 45 days) The Plan of Treatment section includes future care activities for the patient from [facility] [place] [facility] This section includes future appointments and future orders which are active, pending or scheduled. Future Appointments This section includes appointments that were scheduled to occur 6 months from the date of the Encounter, up to a maximum of 20 appointments. The data comes from all [place] treatment facilities. Appointment Date/Time Appointment Type Appointme nt Facility Name May 06, 2024 03:30 PM AMBULATORY - MEDICINE [facility] May 19, 2024 11:00 AM AMBULATORY - MEDICINE [facility] May 22, 2024 09:30 AM AMBULATORY - SURGERY [facility] May 27, 2024 09:30 AM AMBULATORY - NONE [facility] Jul 11, 2024 02:00 PM AMBULATORY - NONE [facility] Aug 07, 2024 07:30 AM AMBULATORY - NONE [facility] Aug 15, 2024 10:30 AM AMBULATORY - MEDICINE [facility] Sep 04, 2024 01:30 PM AMBULATORY - MEDICINE [facility] Sep 05, 2024 10:00 AM AMBULATORY - NONE [facility] Sep 18, 2024 12:20 PM AMBULATORY - MEDICINE [facility] Sep 22, 2024 11:30 AM AMBULATORY - NONE [facility] Oct 27, 2024 11:15 AM AMBULATORY - MEDICINE [facility] Lab Results: +/- 30 days of the encounter This section includes the Chemistry and Hematology Lab Results on record with [place] for the patient. Radiology Reports and Pathology Reports are provided separately, in subsequent sections. Lab Results This section contains the Chemistry/Hematology Results that were resulted 30 days before or 30 daysafter the date of the Encounter. Date/Time Source Result Type Result - Unit Interpretation Reference Range Comment May 03, 2024 06:10 AM [facility] GLUCOSE,BLOOD-poct (STL) Specimen Type: BLOOD Comment: Test Performed by: [id number] Meter #: [id number] Ordering Provider: PALMA WASHBURN III Report Released Date/Time: May 03, 2024 06:30 AM Reporting Lab: [address] [address] Performing Lab: [address] [address] GLUCOSE,BLOOD- poct (STL) 107 mg/dL H 72-May 02, 2024 09:17 PM [facility] GLUCOSE,BLOOD-poct (STL) Specimen Type: BLOOD Comment: Test Performed by: [id number] Meter #: [id number] Ordering Provider: PALMA WASHBURN III Report Released Date/Time: May 02, 2024 10:39 PM Reporting Lab: [address] [address] Performing Lab: [address] [address] GLUCOSE,BLOOD- poct (STL) 122 mg/dL H 72-May 02, 2024 07:15 PM [facility] MRSA SURVL NARES DNA Specimen Type: NARES Comment: Qualitative real-time PCR test for the rapid detection of methicillin-resis tant Staphylococcus aureus (MRSA) DNA from nasal swabs. A negative result does not preclude infection with the agent(s) tested and should not be used as the sole basis for treatment or other patient management decisions. A positive test does not necessarily indicate the presence of viable organisms, following bacterial culture to recover the organism for further characterization and susceptibility testing. All results must be combined with clinical observations, patient history, and epidemiological information for final interpretation. Ordering Provider: SUSY REBOLLEDO Report Released Date/Time: May 02, 2024 07:37 PM Reporting Lab: [address] [address] Performing Lab: [address] [address] MRSA SURVL NARES DNA Negative Negative May 02, 2024 06:35 PM [facility] GLUCOSE,BLOOD-poct (STL) Specimen Type: BLOOD Comment: Test Performed by: [id number] Meter #: [id number] Ordering Provider: PALMA WASHBURN III Report Released Date/Time: May 02, 2024 06:47 PM Reporting Lab: [address] [address] Performing Lab: [address] [address] GLUCOSE,BLOOD- poct (STL) 107 mg/dL H 72-99 May 02, 2024 04:15 PM [facility] GLUCOSE,BLOOD-poct (STL) Specimen Type: BLOOD Comment: Test Performed by: [id number] Meter #: [id number] Ordering Provider: FILI EDWARDS Report Released Date/Time: May 02, 2024 04:26 PM Reporting Lab: [place] [address] [facility] [address] Performing Lab: [place] [address] [facility] [address] GLUCOSE,BLOOD- poct (STL) 99 mg/dL 72-99 May 02, 2024 09:47 AM [facility] GLUCOSE,BLOOD-poct (STL) Specimen Type: BLOOD Comment: Test Performed by: [id number] Meter #: [id number] Ordering Provider: FILI EDWARDS Report Released Date/Time: May 02, 2024 10:02 AM Reporting Lab: [address] [address] Performing Lab: [address] [address] GLUCOSE,BLOOD- poct (STL) 104 mg/dL H 72-99 Apr 22, 2024 10:25 AM [facility] COMPREHENSIVE METABOLIC PANEL Specimen Type: PLASMA Comment: K result may show a positive bias due to hemolysis. Specimen slightly hemolyzed. Ordering Provider: CHON COULTER Report Released Date/Time: Apr 22, 2024 10:03 AM Reporting Lab: [address] [address] Performing Lab: [address] [address] CREATININE 0.93 mg/dL 0.7-1.3 UREA NITROGEN 10.6 mg/dL 9.0-25.0 GLUCOSE 89 mg/dL 72-99 SODIUM 139 meq/L 136-145 POTASSIUM 4.6 meq/L 3.5-5 CHLORIDE 106 meq/L 98-107 CARBON DIOXIDE 22 meq/L 22-31 CALCIUM 9.7 mg/dL 8.4-10.4 PROTEIN 6.7 g/dL 6-8.6 ALBUMIN 4.1 g/dL 3.4-5 TOTAL BILIRUBIN 0.5 mg/dL 0.2-1.2 ALKALINE PHOSPHATASE 92 U/L 40-150 AST/SGOT 26 U/L 5-34 ALT/SGPT 31 U/L 8-40 EGFR (CKD-EPI 2020) 85.6 >60 Apr 22, 2024 10:25 AM [facility] CBC Specimen Type: BLOOD No comment entered. Ordering Provider: CHON COULTER Report Released Date/Time: Apr 22, 2024 10:03 AM Reporting Lab: [address] [address] Performing Lab: [address] [address] WBC 7.2 10*3/uL 3.6-11.2 RBC 5.52 10*6/uL 4.10-5.70 HGB 15.7 g/dL 13.1-16.8 HCT 47.2 38.2-48.4 MCV 85.5 fL 80.0-100.0 MCH 28.4 pg 27.0-34.0 MCHC 33.3 g/dL 33.0-36.0 PLT 229 10*3/uL 150-400 MPV 12.0 fL H 7.5-11.2 RDW 14.9 11.8-15.1 LYMPHOCYTES, AUTO % 26 MONOCYTES, AUTO % 10 NEUTROPHILS, AUTO % 63 EOSINOPHILS, AUTO % 1 BASOPHILS, AUTO % 0 LYMPHOCYTES, ABSOLUTE 1.88 10*3/uL 0.77-4.50 MONOCYTES, ABSOLUTE 0.70 10*3/uL 0.19-0.80 NEUTROPHILS, ABSOLUTE 4.53 10*3/uL 2.10-8.00 EOSINOPHILS, ABSOLUTE 0.05 10*3/uL 0.00-0.60 BASOPHILS, ABSOLUTE 0.02 10*3/uL 0.00-0.20 Vital Signs: All taken on the encounter date This section contains inpatient and outpatient Vital Signs collected on the date of the Encounter. Date/Time Temperature Pulse Blood Pressure Respiratory Rate SP02 Pain Height Weight Body Mass Index Source May 02, 2024 10:58 PM 7 [facility] May 02, 2024 09:30 PM 97.9 66 165/78 20 98 8 [facility] May 02, 2024 08:15 PM 4 [facility] May 02, 2024 07:15 PM 7 [facility] May 02, 2024 06:39 PM 7 [facility] Social History: Smoking Status (Most current) and Tobacco Use (All prior to encounter date) This section includes the most current, and the historical, smoking and tobacco- related health factors from the [place] facility where the Encounter took place. Current Smoking Status This section includes the most current smoking, or tobacco-related health factor, from the [place] facility where the Encounter took place. Date/Time Current Smoking Status Comment Tristan ity Oct 17, 2023 04:53 PM ORYX ADMIT TOBACCO SCREEN NO [facility] Tobacco Use History This section includes a history of the smoking, or tobacco-related health factors, that were collected on or before the date of the Encounter. The data comes from the [place] facility where the Encounter took place. Date/Time Smoking Status/Tobacco Use Comment F acility Oct 17, 2023 03:00 PM ORYX ADMIT TOBACCO SCREEN NO [facility] Dec 31, 2021 03:07 PM ORYX ADMIT TOBACCO SCREEN NO [facility] Apr 06, 2017 11:33 PM QUIT TOBACCO >7 YEARS AGO [facility] Mar 21, 2017 04:29 AM QUIT TOBACCO >7 YEARS AGO [facility] Jan 20, 2014 09:56 AM QUIT TOBACCO >7 YEARS AGO [facility] Jan 02, 2013 01:23 PM QUIT TOBACCO >7 YEARS AGO [facility] May 25, 2010 01:35 PM LIFETIME NON-USER OF TOBACCO [facility] Aug 17, 2009 01:04 PM QUIT TOBACCO >12 M O & <7 YRS AGO [facility] Sep 17, 2008 01:34 PM QUIT TOBACCO >12 M O & <7 YRS AGO [facility] Sep 20, 2006 10:57 AM QUIT TOBACCO >12 M O & <7 YRS AGO [facility] Jun 05, 2006 10:49 AM CURRENT NON-TOBACC O USER-HX OF USE [facility] Jun 05, 2006 10:49 AM TOBACCO TERMINATION STAGE [facility] Jul 14, 2005 11:00 AM CURRENT NON-TOBACC O USER-HX OF USE [facility] Jul 14, 2005 11:00 AM TOBACCO TERMINATION STAGE [facility] Oct 23, 2004 04:56 PM CURRENT NON-TOBACC O USER-HX OF USE [facility] Oct 23, 2004 04:56 PM TOBACCO ACTION STAGE [facility] Apr 07, 2004 10:58 AM CURRENT NON-TOBACC O USER-HX OF USE [facility] Apr 07, 2004 10:58 AM TOBACCO MAINTENANCE STAGE [facility] December 18, 2002 11:17 AM CURRENT TOBACCO USER [facility] December 18, 2002 11:17 AM TOBACCO USE [facility] Apr 07, 2002 02:25 PM CURRENT NON-TOBACC O USER-RECENTLY QUIT quit 3 mo ago [facility] Apr 07, 2002 02:25 PM TOBACCO USE quit 3 mo ago [facility] Nov 19, 2001 10:50 AM CURRENT TOBACCO USER [facility] Jul 16, 2001 08:35 AM CURRENT TOBACCO USER [facility] Jun 18, 2001 08:31 AM CURRENT TOBACCO USER [facility] Jun 18, 2001 08:[address] [facility] Advance Directives: All historical and current Section Date Range: From patient's date of to the date document was created. This section includes ALL of a patient's completed or amended [place] Advance and Rescinded Directives. The entries below indicate that a directive exists for the patient, but an actual copy is not included with this document. The data comes from all [place] facilities. Date Advance Directives Provider Source Feb 18, 2018 ADVANCE DIRECTIVE DISCUSSION EMMETT CAMILO [facility] Radiology Reports: +/- 30 days of the [...] the Encounter. The data comes from all [place] treatment facilities. Date/Time Radiology Report Provider Source Apr 22, 2024 10:54 AM CHEST X-RAY, 2 VIE WS: MAURILIO DUQUE [id number] -[id number] M Ex Date: APR 22, 2024@10:54 Req Phys: CHON COULTER Loc: -ANES PREOP EVAL 1 (Req'g Lo Img Loc: -MAIN RADIOLOGY SUITE Service: [facility] [address] [place] [address] (Case [id number] COMPLETE) CHEST X-RAY, 2 VIEWS (RAD Detailed) CPT:96508 Reason for Study: preop Clinical History: Report Status: Verified Date Reported: APR 22, 2024 Date Verified: APR 22, 2024 Deblocker E-Sig:/ES/Jelani Luong MD Report: FINDINGS: The examination was compared with previous examination of September. Heart size is normal. Mediastinal structures appear unremarkable. Both lungs are fully expanded without evidence of pulmonary infiltrates or additional significant findings. Impression: No evidence of acute cardiopulmonary disease. Primary Interpreting Staff: Jelani Luong MD, Radiologist (Deblocker) /QMB JELANI LUONG [facility] Pathology Reports: +/- 30 days of the encounter Pathology Reports For cases when an order for pathology services may have been completed prior to the date of the Encounter, the report list includes the Pathology Reports that were completed up to 30 days before dateof the Encounter. For cases when an order for pathology services may have been completed after the date of the Encounter, the report list also includes the Pathology Reports that were completed up to30 days after date of the Encounter. The data comes from all [place] treatment facilities. Date/Time Pathology Report Provider Source May 05, 2024 10:41 AM LR SURGICAL PATHOL OGY REPORT: LOCAL TITLE: LR SURGICAL PATHOLOGY REPORT STANDARD TITLE: PATHOLOGY PROCEDURE NOTE DATE OF NOTE: MAY 05, 2024@10:41:27 ENTRY DATE: MAY 05, 2024@10:41:27 AUTHOR: IVAN CASTILLO EXP COSIGNER: URGENCY: STATUS: COMPLETED $APHDR - - - - - - - - - - - - - - - - - - - - - - - - - - - - - - - - - - - - - - - - MEDICAL RECORD SURGICAL PATHOLOGY - - - - - - - - - - - - - - - - - - - - - - - - - - - - - - - - - - - - - - - - PATHOLOGY REPORT Accession No. SP [id number] - - - - - - - - - - - - - - - - - - - - - - - - - - - - - - - - - - - - - - - - $TEXT Submitted by: PALMA WASHBURN III Date obtained: May 02, 2024 - - - - - - - - - - - - - - - - - - - - - - - - - - - - - - - - - - - - - - - - Specimen (Received May 05, 2024 09:21): Caterina HERNANDEZ RESEVDORA (JAK) - - - - - - - - - - - - - - - - - - - - - - - - - - - - - - - - - - - - - - - - BRIEF CLINICAL HISTORY: - - - - - - - - - - - - - - - - - - - - - - - - - - - - - - - - - - - - - - - - PREOPERATIVE DIAGNOSIS: inguinal hernia - - - - - - - - - - - - - - - - - - - - - - - - - - - - - - - - - - - - - - - - OPERATIVE FINDINGS: - - - - - - - - - - - - - - - - - - - - - - - - - - - - - - - - - - - - - - - - POSTOPERATIVE DIAGNOSIS: inguinal hernia Surgeon/physician: PALMA WASHBURN III Attending Surgeon: Palma Washburn III =-=-=-=-=-=-=-=-=-=-=-=-=-=- =-=-=-=-=-=-=-=-=-=-=-=-=-=- =-=-=-=-=-=-=-=-=-=-=-= - - - - - - - - - - - - - - - - - - - - - - - - - - - - - - - - - - - - - - - - PATHOLOGY REPORT Accession No. SP [id number] - - - - - - - - - - - - - - - - - - - - - - - - - - - - - - - - - - - - - - - - GROSS DESCRIPTION: (Dr. Guero Castillo) Received fresh in a container labeled with patient's name, SSN and IPP reservoir is a translucent plastic bulb measuring 8.0 x 6.5 x 2.0 cm. There is a conical tip towards one end of the bulb measuring 3.8 cm in length. The base of the conical tip measures 2.0 cm in diameter and the tip measures 0.3 cm in diameter. There is a metallic spring within the conical tip. There are no inscriptions or tissue associated with the specimen. The specimen is for gross examination only. 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 PATHOLOGIST Signed May 05, 2024@10:41 Performing Laboratory: Surgical Pathology Report Performed By: [facility] [address] [place], [place] [address]IA# [id number] [address] [place] [address] $FTR - - - - - - - - - - - - - - - - - - - - - - - - - - - - - - - - - - - - - - - - (End of report) IVAN CASTILLO MD vp customer development Date May 05, 2024 - - - - - - - - - - - - - - - - - - - - - - - - - - - - - - - - - - - - - - - - MAURILIO DUQUE STANDARD FORM 515 ID:[id number] SEX:M :1950 AGE: 73 LOC:[facility] PCP: Natalio Bridges MD /radha/ IVAN CASTILLO M.D., PH.D. PATHOLOGIST Signed: 05/05/2024 10:[address] [facility] Encounter Notes: All associated encounter notes This section contains the clinical notes associated to the Encounter. Date/Time Encounter Note(s) Provider Source May 02, 2024 02:13 PM NURSING INPATIENT NOTE: LOCAL TITLE: [facility]ES ACUTE INPATIENT NSG SHIFT ASSESSMENT STANDARD TITLE: NURSING INPATIENT NOTE DATE OF NOTE: MAY 02, 2024@14:13 ENTRY DATE: MAY 02, 2024@14:13:05 AUTHOR: LINDA VILLALTA EXP COSIGNER: URGENCY: STATUS: COMPLETED SCAES ACUTE INPATIENT NSG SHIFT ASSESSMENT Has ADDENDA Version 2.2 Charting in accordance with [place] APPROVED AUGUSTINE STANDARD (SCAES) ACUTE INPATIENT/REHABILITATION NURSING ADMISSION SCREENING, ASSESSMENT, AND STANDARDS OF CARE ASSESSMENT GENITOURINARY Urinary Catheter: Type: Indwelling: New Insertion/Application: Date/Time of insertion: Apr@13:20 Type: Urethral: Regular Size (Hebrew): 16 Balloon inflation (mL): 10 Indication(s): Perioperative use for selected surgical procedures Catheter Associated Urinary Tract Infection (CAUTI) Prevention Insertion Bundle Completed - Hands washed prior to donning sterile gloves - Sterile gloves worn by shoe coverer - Sterile drape and sponges - Sterile periurethral cleaning - Single use of lubricant and jelly by shoe coverer Catheter secured: Right leg Comment: inserted by Carri Hardy MD Assessment: Type: CAUTI Prevention Maintenance Bundle Maintained: - Maintain closed drainage system - Collecting bag below the level of the bladder and remains off the floor - Catheter and collecting tube free from kinking and remains off the floor - Collection bag regularly emptied using a separate, clean collecting container for single patient use; avoiding splashing, and no contact of the drainage spigot with the nonsterile collecting container - Daily periurethral hygiene Site Condition: No redness, pain, swelling Indication(s): ========= INTEGUMENTARY/SKIN/WOUND - (INCLUDING MASON) SEE NOTE: VAAES SKIN INPECTION/ASSESSMENT ========= /radha/ KAROLINE HUSSEIN, RN REGISTERED NURSE Signed: 05/02/2024 14:14 05/02/2024 ADDENDUM STATUS: COMPLETED REMOVED AFTER SURGICAL PROCEDURE WITHOUT DIFFICULTIES /radha/ DEX RAMEY RN REGISTERED NURSE Signed: 05/02/2024 14:[address] [facility] May 02, 2024 02:12 PM NURSING PROCEDURE NOTE: LOCAL TITLE: [facility] OPERATING [facility]OM/PROCEDURE FIRE RISK ASSESSMEN STANDARD TITLE: NURSING PROCEDURE NOTE DATE OF NOTE: MAY 02, 2024@14:12 ENTRY DATE: MAY 02, 2024@14:12:24 AUTHOR: LINDA VILLALTA EXP COSIGNER: URGENCY: STATUS: COMPLETED PROBLEM: FIRE RISK ASSESSMENT EXPECTED OUTCOME: Patient will remain free from injury related to surgical fire/ procedural fire NURSING ASSESSMENT: A. Is an alcohol-based skin antiseptic or other flammable solution being used preoperatively? Yes, Interventions TIME-OUT to include: Flammable prep solutions were contained in nonflammable packaging. Flammable prep solutions utilized were a unit dosed applicator. Allow flammable skin antiseptics to dry completely and fumes to dissipate per manufacture guidelines prior to applying drapes and before using a potential ignition source. Flammable solution soaked materials have been removed from the OR/Procedural area prior to draping and use of an ignition source. Comments: B. Is the procedure being performed above the xiphoid process or in the oropharynx? No C. Is open oxygen or nitrous oxide being administered (delivery via nasal cannula or face mask)? No D. Is an ESU (Electrical Surgical Unit), laser, or fiber optic cord being used? Yes, Interventions ESU Place the ESU in a location that does not put stress on the electrical cord. Keep the electrical cord dry and free of kinks, knots, and bends. Inspect the ESU cord before use, and do not use it if there is any evidence of breaks, nicks, or cracks in the outer insulation coating. Keep the active electrode cord free of kinks and coils during use. Only the person controlling the active electrode should activate the ESU. Use the lowest possible power setting for the ESU. Store the active electrode in a clean, dry, non-conductive safety holster when it is not in use. Keep sterile drapes or linens away from the activated ESU. Do not use an ignition source to enter the bowel or the trachea. Keep the ESU active electrode away from oxygen, nitrous oxide, or combustible anesthetic gas sources if possible. Do not activate the active electrode in the presence of flammable agents until the agents are dry and vapors have dissipated (eg, alcohol-based skin antiseptics, tinctures, de-fatting agents, collodion, petroleum-based lubricants, phenol, aerosol adhesives, uncured methyl methacrylate). Keep the active electrode tip clean. Use active electrode tips according to the warehouse distribution associate's instructions. Use only active electrodes or return electrodes that are compatible with the ESU. Seat the active electrode tip securely into the electrosurgical hand piece. Do not alter the active electrode tip (eg, by bending, by using insulation sheaths made from flammable materials such as rubber catheters). Activate the active electrode only when it is in close proximity to the target tissue and away from other metal objects that could conduct heat or cause arcing. Inspect minimally invasive electrosurgical instruments for impaired insulation and remove them from service if the insulation is not intact. Use cut or blend settings instead of coagulation when possible. Remove the active electrode tip from the electrosurgical hand piece before discarding it. Remove the batteries or disable the cautery tip before disposing of battery-powered, hand-held cautery units, if applicable. During perineal procedure, use moistened radiopaque sponges to cover or pack the anus. Fiber-optic Light Use Place the light source in standby mode or turn it off when the cable is not in use. Inspect light cables before use and remove them from service if broken light bundles are visible. Connect all fiber-optic light cables before activating the light source. Place the light source on standby when disconnecting fiber-optic light cables. Secure the working end (ie, the end that is inserted into the body) of the endoscope or cord on a moist towel or away from any drapes, sponges, or other flammable materials. Comments: E. Other possible contributors to fire are present (defibrillator, drills, saws, burrs) No Additional comments: /radha/ KAROLINE HUSSEIN, RN REGISTERED NURSE Signed: 05/02/2024 14:12 LINDA VILLALTA [facility] May 02, 2024 02:12 PM NURSING PROCEDURE NOTE: LOCAL TITLE: [facility] OPERATING [facility]OM/PROCEDURE FIRE RISK ASSESSMEN STANDARD TITLE: NURSING PROCEDURE NOTE DATE OF NOTE: MAY 02, 2024@14:12 ENTRY DATE: MAY 02, 2024@14:12:51 AUTHOR: LINDA VILLALTA EXP COSIGNER: URGENCY: STATUS: COMPLETED PROBLEM: FIRE RISK ASSESSMENT EXPECTED OUTCOME: Patient will remain free from injury related to surgical fire/ procedural fire OUTCOME: Option 1. Patient is free from fire/burn injury. Additional comments: /radha/ KAROLINE HUSSEIN, RN REGISTERED NURSE Signed: 05/02/2024 14:[address] [facility]
--- OUTSIDE RECORDS SUMMARY | 2024-11-02 11:51 | XMS_ITS | Continuity of Care Document ---
Author Organization [facility] Address [address] [place] [address] [place] [address] Phone Care Team Providers Care Bale Tie Machine Operator Name Role Phone [facility] Unavailable Unavail able Sickchivo, Flavia Unavailable Unavailable Advance Directives Directive Yes / No Effective Date File Name No Information Encounters Encounter Description Practice Location Reason(s) For Visit Diagnoses Date Provider Providers Copied on Encounter [facility], [address] [place], [place], [id number], [place] tel:[phone] [facility] [place] No Information [address] [facility] [address] [facility], [address], [place], [place], [id number] , [place]. tel:[phone] Consulting Provider: Flavia Spears, [address] [place] [address], [address]. tel:[phone] Family History Family Member Type Diagnosis Age At Onset No Information Payers Payer name Insurance type Covered constitution party ID Authoriza tion(s) No Information Social [...]
--- OUTSIDE RECORDS SUMMARY | 2024-11-02 11:52 | XMS_ITS | Encounter Summary ---
Author Name [facility] [place] [facility] Address [address] [place] [address] Care Team Providers Care Worm Raiser Name Role Phone NATALIO BRIDGES Primary Care Provider Unavailab le Insurance Providers: All historical and current [...] Policy [place] MEDICARE (WNR) MEDICARE (M) PART A Oct 28, 2001 PART A [id number] [phone] Petra DUQUE PATIENT MEDICARE (WNR) MEDICARE (M) PART B Oct 28, 2001 PART B [id number] Petra DUQUE PATIENT MEDICARE (WNR) MEDICARE (M) PART A Oct 28, 2001 PART A [id number] Petra DUQUE PATIENT Selected Encounter This section includes the information on record at CT for the Encounter. Date/Time Encounter Type Encounter Description Reason Pro vider Source IHE Encounter Template Text not used by CT Advance Directives: All historical and current Section Date Range: From patient's date of to the date document was created. This section includes ALL of a patient's completed or amended [place] Advance and Rescinded Directives. The entries below indicate that a directive exists for the patient, but an actual copy is not included with this document. The data comes from all CT facilities. Date Advance Directives Provider Source Feb 18, 2018 ADVANCE DIRECTIVE DISCUSSION EMMETT CAMILO [facility]
--- OUTSIDE RECORDS SUMMARY | 2024-11-02 11:52 | XMS_ITS | Encounter Summary ---
Author Name [facility] [facility] [place] [facility] [place] [facility] [place] Address [address] [place] [address] Care Team Providers Care Bench Mover Name Role Phone NATALIO BRIDGES Primary Care Provider Angel hoffman Insurance Providers: All historical and current [...] PART B Oct 28, 2001 PART B [id number] [phone] Petra DUQUE PATIENT MEDICARE (WNR) MEDICARE (M) PART A Oct 28, 2001 PART A [id number] Petra DUQUE PATIENT MEDICARE (WNR) MEDICARE (M) PART A Oct 28, 2001 PART A [id number] Petra DUQUE PATIENT Selected Encounter This section includes the information on record at [place] for the Encounter. Date/Time Encounter Type Encounter Description Reason Provider Source May 19, 2024 11:00 AM OFFICE O/P EST MOD 30 MIN PRIMARY CARE/MEDICINE ICD-10-CM I10 Essential (primary) hypertension ZHANG MANNING Encounter Template Text not used by [facility] Assessments - Encounter Diagnoses This section includes the primary and secondary diagnoses documented for the Encounter. Date/Time Primary/Secondary Diagnosis Diagnosis Name Provider Source May 23, 2024 01:26 PM PRIMARY Essential (primary) hypertension FERNANDO BRIDGES 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 [facility] May 23, 2024 01:26 PM SECONDARY Low back pain, unspecified [facility] May 23, 2024 01:26 PM SECONDARY Trigeminal neuralgia [facility] May 23, 2024 01:26 PM SECONDARY Type 2 diabetes mellitus without complications [facility] May 23, 2024 01:26 PM SECONDARY Unil inguinal hernia, w/o obst or gangr, not spcf as recur [facility] Plan of Treatment: Future Appointments (+ 6 months) and Future Tests (+/- 45 days) The Plan of Treatment section includes future care activities for the patient from all [place] treatmentfacilities. This section includes future appointments and future orders which are active, pending or scheduled. Future Appointments This section includes appointments that were scheduled to occur 6 months from the date of the Encounter, up to a maximum of 20 appointments. The data comes from all [place] treatment facilities. Appointment Date/Time Appointment Type Appointme nt Facility Name May 22, 2024 09:30 AM AMBULATORY - SURGERY [facility] May 27, 2024 09:30 AM AMBULATORY - NONE [facility] Jul 11, 2024 02:00 PM AMBULATORY - NONE [facility] Aug 07, 2024 07:30 AM AMBULATORY - NONE [facility] Aug 15, 2024 10:30 AM AMBULATORY - MEDICINE [facility] Sep 04, 2024 01:30 PM AMBULATORY - MEDICINE [facility] Sep 05, 2024 10:00 AM AMBULATORY - NONE [facility] Sep 18, 2024 12:20 PM AMBULATORY - MEDICINE [facility] Sep 22, 2024 11:30 AM AMBULATORY - NONE [facility] Oct 27, 2024 11:15 AM AMBULATORY - MEDICINE [facility] Nov 15, 2024 11:00 AM AMBULATORY - NONE [facility] Nov 17, 2024 01:30 PM AMBULATORY - MEDICINE [facility] Lab Results: +/- 30 days of the encounter This section includes the Chemistry and Hematology Lab Results on record with [facility] for the patient. Radiology Reports and Pathology Reports are provided separately, in subsequent sections. Lab Results This section contains the Chemistry/Hematology Results that were resulted 30 days before or 30 daysafter the date of the Encounter. Date/Time Source Result Type Result - Unit Interpretation Reference Range Comment May 03, 2024 06:10 AM [facility] GLUCOSE,BLOOD-poct (STL) Specimen Type: BLOOD Comment: Test Performed by: [id number] Meter #: [id number] Ordering Provider: PALMA WASHBURN III Report Released Date/Time: May 03, 2024 06:30 AM Reporting Lab: [place] [address] [address] [facility] [address] Performing Lab: [address] [address] GLUCOSE,BLOOD- poct (STL) 107 mg/dL H 72-99 May 02, 2024 09:17 PM [facility] GLUCOSE,BLOOD-poct (STL) Specimen Type: BLOOD Comment: Test Performed by: [id number] Meter #: [id number] Ordering Provider: PALMA WASHBURN III Report Released Date/Time: May 02, 2024 10:39 PM Reporting Lab: [address] [address] Performing Lab: [address] [address] GLUCOSE,BLOOD- poct (STL) 122 mg/dL H 72-99 May 02, 2024 07:15 PM [facility] MRSA SURVL NARES DNA Specimen Type: NARES [...] May 02, 2024 07:37 PM Reporting Lab: [address] [address] Performing Lab: [address] [address] MRSA SURVL NARES DNA Negative Negative May 02, 2024 06:35 PM [facility] GLUCOSE,BLOOD-poct (STL) Specimen Type: BLOOD Comment: Test Performed by: [id number] Meter #: [id number] Ordering Provider: PALMA WASHBURN III Report Released Date/Time: May 02, 2024 06:47 PM Reporting Lab: [address] [address] Performing Lab: [address] [address] GLUCOSE,BLOOD- poct (STL) 107 mg/dL H 72-99 May 02, 2024 04:15 PM [facility] GLUCOSE,BLOOD-poct (STL) Specimen Type: BLOOD Comment: Test Performed by: [id number] Meter #: [id number] Ordering Provider: FILI EDWARDS Report Released Date/Time: May 02, 2024 04:26 PM Reporting Lab: [address] [address] Performing Lab: [address] [address] GLUCOSE,BLOOD- poct (STL) 99 mg/dL 72-99 May 02, 2024 09:47 AM [facility] GLUCOSE,BLOOD-poct (STL) Specimen Type: BLOOD Comment: Test Performed by: [id number] Meter #: [id number] Ordering Provider: FILI EDWARDS Report Released Date/Time: May 02, 2024 10:02 AM Reporting Lab: [address] [address] Performing Lab: [address] [address] GLUCOSE,BLOOD- poct (STL) 104 mg/dL H 72-99 Apr 22, 2024 10:25 AM [facility] COMPREHENSIVE METABOLIC PANEL Specimen Type: PLASMA Comment: K result may show a positive bias due to hemolysis. Specimen slightly hemolyzed. Ordering Provider: CHON COULTER Report Released Date/Time: Apr 22, 2024 10:03 AM Reporting Lab: [address] [address] Performing Lab: [address] [address] CREATININE 0.93 mg/dL 0.7-1.3 UREA NITROGEN 10.6 [...] 85.6 >60 Apr 22, 2024 10:25 AM [facility] CBC Specimen Type: BLOOD No comment entered. Ordering Provider: CHON COULTER Report Released Date/Time: Apr 22, 2024 10:03 AM Reporting Lab: [facility] [address] [address] Performing Lab: [facility] [address] [address] WBC 7.2 10*3/uL 3.6-11.2 RBC 5.52 10*6/uL [...] Height Weight Body Mass Index Source May 19, 2024 11:27 AM 130/64 [facility] May 19, 2024 11:27 AM 98.1 72 142/70 [address] [facility] Social History: Smoking Status (Most current) and Tobacco Use (All prior to encounter date) This section includes the most current, and the historical, smoking and tobacco- related health factors from the [place] facility where the Encounter took place. Current Smoking Status This section includes the most current smoking, or tobacco-related health factor, from the [place] facility where the Encounter took place. Date/Time Current Smoking Status Comment Facil ity May 19, 2024 11:00 AM VA-TOBACCO FORMER USER [facility] Tobacco Use History This section includes a history of the smoking, or tobacco-related health factors, that were collected on or before the date of the Encounter. The data comes from the [place] facility where the Encounter took place. Date/Time Smoking Status/Tobacco Use Comment F acmahesh May 19, 2024 11:00 AM VA-TOBACCO QUIT [address] [facility] Mar 20, 2023 01:31 PM VA-TOBACCO FORMER USER [facility] Mar 20, 2023 01:31 PM VA-TOBACCO QUIT [address] [facility] Dec 29, 2021 10:00 AM VA-TOBACCO FORMER USER [facility] Dec 29, 2021 10:00 AM VA-TOBACCO QUIT [address] [facility] Dec 29, 2020 01:00 PM VA-TOBACCO FORMER USER [facility] Dec 29, 2020 01:00 PM VA-TOBACCO QUIT [address] [facility] Apr 22, 2020 03:30 PM [facility] December 06, 2018 09:11 AM VA-TOBACCO FORMER USER [facility] December 06, 2018 09:11 AM VA-TOBACCO QUIT [address] [facility] Jan 23, 2018 10:52 AM QUIT TOBACCO >[address] [facility] Oct 26, 2017 11:31 AM QUIT TOBACCO >[address] [facility] Jun 29, 2017 01:52 PM QUIT TOBACCO >[address] [facility] Apr 06, 2017 12:57 PM QUIT TOBACCO >[address] [facility] Feb 28, 2017 10:46 AM QUIT TOBACCO >[address] [facility] May 17, 2016 08:14 AM QUIT TOBACCO >[address] [facility] Apr 20, 2015 10:25 AM QUIT TOBACCO >[address] [facility] Advance Directives: All historical and current Section Date Range: From patient's date of to the date document was created. This section includes ALL of a patient's completed or amended [place] Advance and Rescinded Directives. The entries below indicate that a directive exists for the patient, but an actual copy is not included with this document. The data comes from all [place] facilities. Date Advance Directives Provider Source Feb 18, 2018 ADVANCE DIRECTIVE DISCUSSION EMMETT CAMILO [facility] Radiology Reports: +/- 30 days of [...] the Encounter. The data comes from all [place] treatment facilities. Date/Time Radiology Report Provider Source Apr 22, 2024 10:54 AM CHEST X-RAY, 2 VIE WS: MAURILIO DUQUE [id number] -[id number] M Exm Date: APR 22, 2024@10:54 Req Phys: CHON COULTER Pat Loc: -ANE PREOP EVAL 1 (Req'g Lo Img Loc: -MAIN RADIOLOGY SUITE Service: [facility], [facility] [address] [place] [address] (Case [id number] COMPLETE) CHEST X-RAY, 2 VIEWS (RAD Detailed) CPT:71785 Reason for Study: preop Clinical History: Report Status: Verified Date Reported: APR 22, 2024 Date Verified: APR 22, 2024 Ammonia Refrigeration Worker E-Sig:/ES/Jelani Luong MD Report: FINDINGS: The examination was compared with previous examination of September. Heart size is normal. Mediastinal structures appear unremarkable. Both lungs are fully expanded without evidence of pulmonary infiltrates or additional significant findings. Impression: No evidence of acute cardiopulmonary disease. Primary Interpreting Staff: Jelani Luong MD, Radiologist (Ammonia Refrigeration Worker) /QMB NELSY LUONGM M [facility] Pathology Reports: +/- 30 days of [...] the Encounter. The data comes from all [place] treatment facilities. Date/Time Pathology Report Provider Source May 05, 2024 10:41 AM LR SURGICAL PATHOL OGY REPORT: LOCAL TITLE: LR SURGICAL PATHOLOGY REPORT STANDARD TITLE: PATHOLOGY PROCEDURE NOTE DATE OF NOTE: MAY 05, 2024@10:41:27 ENTRY DATE: MAY 05, 2024@10:41:27 AUTHOR: IVAN CASTILLO COSIGNER: URGENCY: STATUS: COMPLETED $APHDR - - [...] Specimen (Received May 05, 2024 09:21): Caterina NGUYEN) - - - - - - - [...] specimen is for gross examination only. 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 PATHOLOGIST Signed May 05, 2024@10:41 Performing Laboratory: Surgical Pathology Report Performed By: [address] [id number] [id number] [facility] [address] [place] [address] $FTR - - - - - - - - - - - - - - - - - - - - - - - - - - - - - - - - - - - - - - - - (End of report) IVAN CASTILLO MD land appraiser Date May 05, 2024 - - - - - - - - - - - - - - - - - - - - - - - - - - - - - - - - - - - - - - - - MAURILIO DUQUE VINCE STANDARD FORM 515 ID:[id number] SEX:M :1950 AGE: 73 LOC:[facility] PCP: Natalio Bridges MD /radha/ IVAN CASTILLO M.D., PH.D. PATHOLOGIST Signed: 05/05/2024 10:41 IVAN CASTILLO [facility] Encounter Notes: All associated encounter notes This section contains the clinical notes associated to the Encounter. Date/Time Encounter Note(s) Provider Source Oct 28, 2024 02:10 PM ADDENDUM: LOCAL TITLE: Addendum STANDARD TITLE: ADDENDUM DATE OF NOTE: OCT 28, 2024@14:10:51 ENTRY DATE: OCT 28, 2024@14:10:53 AUTHOR: SHASHI FLOREZ COSIGNER: URGENCY: STATUS: COMPLETED Vet requesting refill on Lyrica. /radha/ SHASHI FLOREZ, MSN, AGNP-C NURSE PRACTITIONER Signed: 10/28/2024 14:11 Receipt Acknowledged By: 10/30/2024 16:06 /radha/ NATALIO BRIDGES MD STAFF PHYSICIAN --- Original Document --- 05/19/24 PRIMARY CARE PROVIDER ESTABLISHED VISIT STL: ESTABLISHED PATIENT [id number]: REASON FOR VISIT/CHIEF COMPLAINT: HPI: htn: no issues. hld; No issues status post hernia repair issues. right sided inguinal hernia. gerd: no issues. trigemminal neuralgia. cct WHAT IS YOUR GOAL FOR TODAY? SOURCE(S) OF HISTORY: Patient PAST MEDICAL HISTORY: 1) Benign essential hypertension (SNOMED CT 8348675) 2) Left trigeminal neuralgia (SNOMED CT 38472508067260220) comment: s/p gamaknife surgery 3) GERD - Gastro-esophageal reflux disease (SNOMED CT 545366982) 4) Chronic obstructive lung disease (SNOMED CT 07675486) 5) LBP - Low back pain (SNOMED CT 643068152) 6) Knee pain (SNOMED CT 64754489) 7) Chest pain 8) Hip joint pain 9) Candidiasis of the esophagus 10) Parotitis 11) Cervicalgia 12) Long-term current use of opiate analgesic drug 13) Diabetes Mellitus Type 2 ([facility] [id number]) 14) Inguinal hernia comment: right sided. 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 SOCIAL HISTORY: NICOTINE:none ILLICIT DRUGS:none ALCOHOL:none ALLERGIES: LISINOPRIL, FENTANYL, COCONUTS ALLERGY REVIEW: Allergy list reviewed and remains current. MEDICATIONS: Active and Recently Outpatient Medications (excluding Supplies): Active Outpatient Medications Status ========= 1) ACETAMINOPHEN 325MG TAB TAKE TWO TABLETS BY MOUTH ACTIVE EVERY 6 HOURS FOR PAIN CAUTION: DO NOT EXCEED 4000MG PER DAY ACETAMINOPHEN (APAP) FROM ALL MEDS. TAKE EVERY 6 HOURS SCHEDULED FOR ONE DAY. THEN EVERY 6 HOURS NEEDED. 2) ALBUTEROL 90MCG (CFC-F) 200D ORAL INHL INHALE 1 PUFF ACTIVE ORAL INHALATION FOUR TIMES A DAY NEEDED SHAKE WELL. RINSE MOUTHPIECE FREQUENTLY TO PREVENT CLOGGING. 3) ALBUTEROL SO4 0.083% INHL 3ML INHALE 1 VIAL ACTIVE (2.5MG/3ML) BY NEBULIZATION EVERY 6 HOURS DIRECTED 4) AMLODIPINE BESYLATE 10MG TAB TAKE ONE TABLET BY MOUTH ACTIVE ONCE A DAY FOR HEART/BLOOD PRESSURE 5) ASPIRIN 81MG EC TAB TAKE TWO TABLETS BY MOUTH ONCE A ACTIVE DAY FOR HEART OR CIRCULATION. TAKE WITH FOOD. 6) CARBOXYMETHYLCELLULOSE NA 0.5% OPH SOLN INSTILL 1 ACTIVE DROP IN BOTH EYES FOUR TIMES A DAY NEEDED FOR DRY EYE(S) 7) CHLORHEXIDINE GLUCONATE 4% TOP LIQUID APPLY SMALL ACTIVE AMOUNT TO AFFECTED AREA(S) TWICE (WASH BODY THE EVENING BEFORE AND THE MORNING OF SURGERY; USE 1 BOTTLE FOR EACH EPISODE OF BATHING TO REDUCE SKIN BACTERIA; AVOID CONTACT WITH FACE AND PRIVATES. DO NOT SWALLOW) 8) CHOLECALCIF 50MCG (D3-2,000UNIT) TAB TAKE TWO TABLETS ACTIVE BY MOUTH ONCE A DAY FOR VITAMIN D DEFICIENCY. 9) CICLOPIROX 8% TOP SOLN APPLY LIGHTLY TO AFFECTED ACTIVE AREA(S) ONCE A DAY (THIN COAT TO THICK NAILS - FILE DOWN AFTER 1 WEEK) (EXTERNAL USE ONLY) 10) CYCLOBENZAPRINE HCL 10MG TAB TAKE ONE TABLET BY MOUTH ACTIVE THREE TIMES A DAY FOR MUSCLE SPASM MAY CAUSE DROWSINESS. DO NOT DRINK ALCOHOL WHILE TAKING THIS MEDICATION. 11) HYDROCODONE 10/ACETAMINOPHEN 325MG TAB TAKE 1 TABLET ACTIVE BY MOUTH EVERY 6 HOURS NEEDED FOR PAIN CAUTION: DO NOT EXCEED 4000MG PER DAY ACETAMINOPHEN (APAP) FROM ALL MEDS. DO NOT TAKE WITH OXYCODONE 12) IBUPROFEN 600MG TAB TAKE ONE TABLET BY MOUTH EVERY 6 ACTIVE HOURS FOR PAIN TAKE WITH FOOD. TAKE SCHEDULED EVERY 6 HOURS FOR ONE DAY. THEN EVERY 6 HOURS NEEDED. 13) METFORMIN HCL 1000MG TAB TAKE ONE TABLET BY MOUTH ACTIVE TWICE A DAY WITH MEALS FOR BLOOD SUGAR CONTROL. AVOID ALCOHOL. DISCONTINUE BEFORE GETTING XRAY DYE. 14) NALOXONE HCL 8MG/SPRAY SOLN NASAL SPRAY USE 1 SPRAY ACTIVE (8MG) INTO ONE NOSTRIL ONLY ONE-TIME FOR OPIOID OVERDOSE DO NOT PRIME NASAL SPRAY. SPRAY ONE DOSE IN ONE NOSTRIL, GIVE ADDITIONAL DOSE IF PATIENT DOES NOT START BREATHING WITHIN 2-3 MINUTES OR STOPS BREATHING AGAIN. CALL 911. IF USED, NOTIFY PROVIDER. 15) OXYCODONE HCL 5MG TAB TAKE ONE-HALF TABLET BY MOUTH ACTIVE ONCE A DAY NEEDED FOR POST-OPERATIVE PAIN MAY CAUSE CONSTIPATION. DO NOT TAKE WITH HYDROCODONE/ACETAMINOPHEN 16) PANTOPRAZOLE NA 40MG EC TAB TAKE ONE TABLET BY MOUTH ACTIVE TWO TIMES A DAY BEFORE MEALS TO LOWER STOMACH ACID - TAKE 30 MINUTES BEFORE MEAL(S) 17) POLYETHYLENE GLYCOL 3350 ORAL PWDR MIX AND DRINK 1 ACTIVE CAPFUL BY MOUTH ONCE A DAY FOR CONSTIPATION (MEASURE WITH CAP AND MIX IN 8 OZ OF WATER) 18) PREGABALIN 200MG ORAL CAP TAKE ONE CAPSULE BY MOUTH ACTIVE THREE TIMES A DAY FOR NERVE PAIN 19) PSYLLIUM ORAL PWD MIX AND DRINK 1 TEASPOONFUL BY ACTIVE MOUTH ONCE A DAY FOR FIBER SUPPLEMENTATION MIX IN GLASS OF WATER/JUICE. FLAVOR SUBSTITUTIONS MAY/WILL OCCUR AND SPECIFIC VARIETIES WILL NOT BE PROVIDED. 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 Handwritten corrections, additions and/or deletions were made to the list. Corrected Outpatient Medication List was provided to the patient/caregiver. REVIEW OF SYSTEMS: General: Normal Ears, Nose, Mouth, Throat: Normal Eye: Normal Cardiovascular: Normal Respiratory: Normal ABD/GI: Normal Musculoskeletal/Extremities: Normal /MARKETING INTELLIGENCE ANALYST: Normal Hematology & Lymph: Normal Endocrine: Normal Skin: Normal PHYSICAL EXAMINATION: General appearance:nad. VITALS (most recent, as listed in the electronic record): Temperature: 98.1 F [36.7 C] (05/19/2024 11:27) BP: 130/64 (05/19/2024 11:27) Pulse: 72 (05/19/2024 11:27) Resp: 20 (05/19/2024 11:27) PulsOx: 95% (05/19/2024 11:27) Pain: 6 (05/19/2024 11:27) Weight: Measurement DT WEIGHT LB(KG)[BMI] 05/19/2024 11:27 221.3(100.38)[28*] 05/03/2024 05:25 210.1(95.30)[27] 05/02/2024 18:35 221.5(100.47)[28*] Ears, Nose, Mouth, Throat: Normal. Eye: Normal sclera Normal PERRLA Cardiovascular: S1 S2 Nl. Respiratory: Clear ABD/GI: Normal. Extremities: Normal /MARKETING INTELLIGENCE ANALYST: Deferred Hematology & Lymph: Normal Endocrine: Normal Psych: Normal Neuro: Normal. CN 2-12 WNL. Strength 4/4 all ext Reflexes 2+ x 4. Skin: Normal. DATA REVIEW: HGA1C 5.9 % 03/27/2024 11:36 HGA1C 5.8 % 09/12/2022 11:13 HGA1C 5.6 % 01/02/2022 20:00 HGA1C 5.8 % 06/30/2021 11:08 HGA1C 5.7 % 12/24/2020 09:24 ====== Lipid Panel: TRIGLYCERIDE 242 H mg/dL 03/27/2024 11:37 CHOLESTEROL 176 mg/dL 03/27/2024 11:37 HDL(New) 33 L mg/dL 03/27/2024 11:37 CALCULATED LDL 95 mg/dL 03/27/2024 11:37 ==== CMP: SODIUM 139 mEq/L 04/22/2024 10:25 POTASSIUM 4.6 mEq/L 04/22/2024 10:25 CHLORIDE 106 mEq/L 04/22/2024 10:25 UREA NITROGEN 10.6 mg/dL 04/22/2024 10:25 CREATININE 0.93 mg/dL 04/22/2024 10:25 CALCIUM 9.7 mg/dL 04/22/2024 10:25 PROTEIN 6.7 g/dL 04/22/2024 10:25 ALBUMIN 4.1 g/dL 04/22/2024 10:25 ALKALINE PHOSPHATASE 92 U/L 04/22/2024 10:25 ALT/SGPT 31 U/L 04/22/2024 10:25 AST/SGOT 26 U/L 04/22/2024 10:25 TOTAL BILIRUBIN 0.5 mg/dL 04/22/2024 10:25 CARBON DIOXIDE 22 mEq/L 04/22/2024 10:25 GLUCOSE 89 mg/dL 04/22/2024 10:25 EGFR (CKD-EPI 2020) 85.6 04/22/2024 10:25 ===== CBC: WBC 7.2 10*3/uL 04/22/2024 10:25 RBC 5.52 10*6/uL 04/22/2024 10:25 HGB 15.7 g/dL 04/22/2024 10:25 HCT 47.2 % 04/22/2024 10:25 MCV 85.5 fL 04/22/2024 10:25 MCH 28.4 pg 04/22/2024 10:25 MCHC 33.3 g/dL 04/22/2024 10:25 RDW 14.9 % 04/22/2024 10:25 PLT 229 10*3/uL 04/22/2024 10:25 MPV 12.0 H fL 04/22/2024 10:25 NEUTROPHILS, AUTO % 63 % 04/22/2024 10:25 LYMPHOCYTES, AUTO % 26 % 04/22/2024 10:25 MONOCYTES, AUTO % 10 % 04/22/2024 10:25 EOSINOPHILS, AUTO % 1 % 04/22/2024 10:25 BASOPHILS, AUTO % 0 % 04/22/2024 10:25 NEUTROPHILS, ABSOLUTE 4.53 10*3/uL 04/22/2024 10:25 LYMPHOCYTES, ABSOLUTE 1.88 10*3/uL 04/22/2024 10:25 MONOCYTES, ABSOLUTE 0.70 10*3/uL 04/22/2024 10:25 EOSINOPHILS, ABSOLUTE 0.05 10*3/uL 04/22/2024 10:25 BASOPHILS, ABSOLUTE 0.02 10*3/uL 04/22/2024 10:25 NRBC% 0 #/100 (WBCs) 11/30/2023 13:10 NEUTROPHILS 86.1 % 10/17/2023 09:10 LYMPHOCYTES 5.2 % 10/17/2023 09:10 MONOCYTES 4.4 % 10/17/2023 09:10 ATYPICAL LYMPHOCYTES 4.3 % 10/17/2023 09:10 IMMATURE PLT FRACTION 5.2 % 11/30/2023 13:10 ====== PROST. SPECIFIC AG.(PB-STL) 1.518 ng/mL 01/11/2024 09:10 PROST. SPECIFIC AG.(PB-STL) 1.869 ng/mL 09/12/2022 11:13 PROST. SPECIFIC AG.(PB-STL) 1.881 ng/mL 06/30/2021 11:08 PROST. SPECIFIC AG.(PB-STL) 2.291 ng/mL 05/05/2020 10:33 PROST. SPECIFIC AG.(PB-STL) 2.400 ng/ml 09/25/2019 11:41 ====== TSH: TSH 2.309 uIU/mL 01/11/2024 09:10 ===== VITAMIN D, 25-HYDROXY 61.0 ng/mL 01/11/2024 09:10 VITAMIN D, 25-HYDROXY 57.9 ng/mL 09/12/2022 11:13 VITAMIN D, 25-HYDROXY 19.1 L ng/mL 06/30/2021 11:08 ====== INR: INR VALUE 1.0 INR 08/14/2023 13:38 PROTIME 11.1 sec 08/14/2023 13:38 ====== UA: URINE COLOR Yellow 11/30/2023 13:10 APPEARANCE Clear 11/30/2023 13:10 U.PH 5.5 11/30/2023 13:10 U.BILIRUBIN Negative mg/dL 11/30/2023 13:10 U.NITRITE Negative mg/dL 11/30/2023 13:10 URINE RBC/HPF 1 /HPF 11/30/2023 13:10 URINE WBC/HPF <1 /HPF 11/30/2023 13:10 SQUAMOUS EPITH. <1 /HPF 11/30/2023 13:10 MUCUS RARE /LPF 11/30/2023 13:10 HYALINE CASTS 1 /LPF 11/30/2023 13:10 ====== IM - IMMUNIZATIONS ADMINISTERED Immunization Series Date Facility Reaction Info COVID-19 (PFIZER), MRNA, LNP-S, * 3 04/23/2021 [facility] COVID-19 (PFIZER), MRNA, LNP-S, * 2 09/02/2020 [facility] <C> COVID-19 (PFIZER), MRNA, LNP-S, * 1 08/12/2020 [facility] <C> INFLUENZA (HISTORICAL) 05/15/2005 [facility] INFLUENZA (HISTORICAL) 05/31/2004 [facility] INFLUENZA (HISTORICAL) 06/03/2003 [facility] INFLUENZA, HIGH-DOSE, QUADRIVALE* C 05/10/2023 [facility] INFLUENZA, HIGH-DOSE, QUADRIVALE* 04/28/2022 No Site <C> INFLUENZA, HIGH-DOSE, QUADRIVALE* 04/23/2021 No Site <C> INFLUENZA, SPLIT VIRUS, QUADRIVA* 05/15/2019 [facility] INFLUENZA, SPLIT VIRUS, QUADRIVA* 05/27/2018 [facility] INFLUENZA, SPLIT VIRUS, TRIVALEN* 04/20/2017 [facility] INFLUENZA, SPLIT VIRUS, TRIVALEN* 04/20/2015 [facility] INFLUENZA, UNSPECIFIED FORMULATI* [facility], UNSPECIFIED FORMULATI* 04/23/2021 [facility] INFLUENZA, UNSPECIFIED FORMULATI* Private P* INFLUENZA, UNSPECIFIED FORMULATI* 05/20/2014 [facility] INFLUENZA, UNSPECIFIED FORMULATI* 04/28/2013 [facility] INFLUENZA, UNSPECIFIED FORMULATI* 06/06/2012 [facility] INFLUENZA, UNSPECIFIED FORMULATI* 04/24/2011 [facility] INFLUENZA, UNSPECIFIED FORMULATI* 05/02/2010 [facility] * INFLUENZA, UNSPECIFIED FORMULATI* 04/13/2009 [facility] INFLUENZA, UNSPECIFIED FORMULATI* [facility]* INFLUENZA, UNSPECIFIED FORMULATI* [facility] .* INFLUENZA, UNSPECIFIED FORMULATI* 04/30/2006 DR [facility]* INFLUENZA, UNSPECIFIED FORMULATI* 05/15/2005 [facility] INFLUENZA, UNSPECIFIED FORMULATI* 05/31/2004 [facility]* INFLUENZA, UNSPECIFIED FORMULATI* 06/03/2003 [facility]* INFLUENZA, UNSPECIFIED FORMULATI* 05/26/2002 [facility]* INFLUENZA, UNSPECIFIED FORMULATI* 08/20/2001 [facility]* OUTSIDE PNEUMOVAX (HISTORICAL) In an[facility]* <C> PNEUMOCOCCAL CONJUGATE PCV 13 11/13/2014 [facility]* PNEUMOCOCCAL POLYSACCHARIDE PPV23 11/09/2015 [facility]* RSV, BIVALENT, PROTEIN SUBUNIT R* 10/26/2023 [facility]* TD(ADULT) UNSPECIFIED FORMULATION 11/19/2001 [facility]* TDAP 11/05/2020 [facility]* TDAP 08/17/2011 [facility]* <C> ZOSTER LIVE 11/06/2008 [facility]* ZOSTER RECOMBINANT 2 09/25/2019 [facility]* ZOSTER RECOMBINANT 1 12/06/2018 [facility]* CONTRAINDICATED No data available REFUSED ======= No data available <C> See the Detailed Immunizations Health Summary Component[DIM] for Comments * Value is truncated; see the Detailed Immunizations Health Summary Component[DIM] for complete text ST - SKIN TESTS No data available Result: Acceptable Follow-up Action: Re check prior to next visit. Data results reviewed with patient and/or caregiver. ASSESSMENT/PLAN: 1. pt got flu and covid shot at [facility]. 2. asthma. cct 3. hld cct 4. htn stable. 5. trigeminal neuralgia 6. hernia (s/p surgery) no issues 7. chronic pain cct. RETURN TO CLINIC: 6 months. SUMMARY STATEMENT: Plan of care has been discussed with including expected therapeutic benefits and potential side effects of prescribed medication and treatments. [place] verbalizes understanding and is in agreement with the plan of care. Patient was instructed to keep all scheduled appointments and contact director of public safety for any additional problems. PREVENTION & SCREENING: ALCOHOL: Clinical Reminder not due now or within a month COLORECTAL CANCER: Clinical Reminder not due now or within a month BLOOD PRESSURE: Clinical Reminder not due now or within a month HEMOGLOBIN A1C: Clinical Reminder not due now or within a month COVID-19 Immunization - L,N,P,PH,U: Refused Moderna Monovalent COVID-19 vaccine Immunization: COVID-19 (MODERNA), MRNA, LNP-S, PF, 50 MCG/0.5 ML (AGES 12+ YEARS) Refusal Reason: PATIENT DECISION Patient refuses all immunization(s) in the COVID-19 group Date Documented: 05/19/24 11:45 Assess Statin Use - Lipids (CVD/DM) - N,P,PH: The patient is already on a statin. The patients prescription for a statin was reviewed and updated. PAVE Foot Check - L,N,P,PH,PO,PT,U: A complete foot check was completed at this encounter. VISUAL INSPECTION: Includes inspection for skin breaks, deformity, erythema, trauma, pallor on elevation, dependent rubor, nail deformities, extensive callus and pitting edema. Visual exam results: Abnormal Observations: Thickened toenails PEDAL PULSES: Includes palpation of dorsalis and posterior tibial pulses and signs/symptoms of vascular compromise like pain, pallor, parasthesia or paralysis. Present (even if diminished) SENSORY CHECK: Includes 10 gram Monofilament ([place]-Maxime) test of sensation. Intact (Greater than or equal to 80% of sites checked) Abnormal (Less than 80% of sites checked): Abnormal (decreased or absent sensation to monofilament): LOW-RISK: LOW RISK INFORMATION PROVIDED: 1. Advised patient not to walk barefoot. 2. Explained the importance of daily foot checks for changes. 3. Stressed the importance of daily foot hygiene, including bathing and complete drying. Prior Approval/Non-formulary Drug: MEDICATION USE EVALUATION /es/ NATALIO BRIDGES MD STAFF PHYSICIAN Signed: 05/19/2024 11:[address] [facility] May 19, 2024 11:39 AM PRIMARY CARE NOTE: LOCAL TITLE: PRIMARY CARE PROVIDER ESTABLISHED VISIT [facility] STANDARD TITLE: PRIMARY CARE NOTE DATE OF NOTE: MAY 19, 2024@11:39 ENTRY DATE: MAY 19, 2024@11:39:55 AUTHOR: NATALOI BRIDGSE EXP COSIGNER: URGENCY: STATUS: COMPLETED PRIMARY CARE PROVIDER ESTABLISHED VISIT [facility] Has ADDENDA ESTABLISHED PATIENT [id number]: REASON FOR VISIT/CHIEF COMPLAINT: HPI: htn: no issues. hld; No issues status post hernia repair issues. right sided inguinal hernia. gerd: no issues. trigemminal neuralgia. cct WHAT IS YOUR GOAL FOR TODAY? SOURCE(S) OF HISTORY: Patient PAST MEDICAL HISTORY: 1) Benign essential hypertension (SNOMED CT 5639849) 2) Left trigeminal neuralgia (SNOMED CT 93761869916957436) comment: s/p [place] surgery 3) GERD - Gastro-esophageal reflux disease (SNOMED CT 115219125) 4) Chronic obstructive lung disease (SNOMED CT 65735912) 5) LBP - Low back pain (SNOMED CT 590861024) 6) Knee pain (SNOMED CT 62990859) 7) Chest pain 8) Hip joint pain 9) Candidiasis of the esophagus 10) Parotitis 11) Cervicalgia 12) Long-term current use of opiate analgesic drug 13) Diabetes Mellitus Type 2 ([facility] [id number]) 14) Inguinal hernia comment: right sided. 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 SOCIAL HISTORY: NICOTINE:none ILLICIT DRUGS:none ALCOHOL:none ALLERGIES: LISINOPRIL, FENTANYL, COCONUTS ALLERGY REVIEW: Allergy list reviewed and remains current. MEDICATIONS: Active and Recently Outpatient Medications (excluding Supplies): Active Outpatient Medications Status ========= 1) ACETAMINOPHEN 325MG TAB TAKE TWO TABLETS BY MOUTH ACTIVE EVERY 6 HOURS FOR PAIN CAUTION: DO NOT EXCEED 4000MG PER DAY ACETAMINOPHEN (APAP) FROM ALL MEDS. TAKE EVERY 6 HOURS SCHEDULED FOR ONE DAY. THEN EVERY 6 HOURS NEEDED. 2) ALBUTEROL 90MCG (CFC-F) 200D ORAL INHL INHALE 1 PUFF ACTIVE ORAL INHALATION FOUR TIMES A DAY NEEDED SHAKE WELL. RINSE MOUTHPIECE FREQUENTLY TO PREVENT CLOGGING. 3) ALBUTEROL SO4 0.083% INHL 3ML INHALE 1 VIAL ACTIVE (2.5MG/3ML) BY NEBULIZATION EVERY 6 HOURS DIRECTED 4) AMLODIPINE BESYLATE 10MG TAB TAKE ONE TABLET BY MOUTH ACTIVE ONCE A DAY FOR HEART/BLOOD PRESSURE 5) ASPIRIN 81MG EC TAB TAKE TWO TABLETS BY MOUTH ONCE A ACTIVE DAY FOR HEART OR CIRCULATION. TAKE WITH FOOD. 6) CARBOXYMETHYLCELLULOSE NA 0.5% OPH SOLN INSTILL 1 ACTIVE DROP IN BOTH EYES FOUR TIMES A DAY NEEDED FOR DRY EYE(S) 7) CHLORHEXIDINE GLUCONATE 4% TOP LIQUID APPLY SMALL ACTIVE AMOUNT TO AFFECTED AREA(S) TWICE (WASH BODY THE EVENING BEFORE AND THE MORNING OF SURGERY; USE 1 BOTTLE FOR EACH EPISODE OF BATHING TO REDUCE SKIN BACTERIA; AVOID CONTACT WITH FACE AND PRIVATES. DO NOT SWALLOW) 8) CHOLECALCIF 50MCG (D3-2,000UNIT) TAB TAKE TWO TABLETS ACTIVE BY MOUTH ONCE A DAY FOR VITAMIN D DEFICIENCY. 9) CICLOPIROX 8% TOP SOLN APPLY LIGHTLY TO AFFECTED ACTIVE AREA(S) ONCE A DAY (THIN COAT TO THICK NAILS - FILE DOWN AFTER 1 WEEK) (EXTERNAL USE ONLY) 10) CYCLOBENZAPRINE HCL 10MG TAB TAKE ONE TABLET BY MOUTH ACTIVE THREE TIMES A DAY FOR MUSCLE SPASM MAY CAUSE DROWSINESS. DO NOT DRINK ALCOHOL WHILE TAKING THIS MEDICATION. 11) HYDROCODONE 10/ACETAMINOPHEN 325MG TAB TAKE 1 TABLET ACTIVE BY MOUTH EVERY 6 HOURS NEEDED FOR PAIN CAUTION: DO NOT EXCEED 4000MG PER DAY ACETAMINOPHEN (APAP) FROM ALL MEDS. DO NOT TAKE WITH OXYCODONE 12) IBUPROFEN 600MG TAB TAKE ONE TABLET BY MOUTH EVERY 6 ACTIVE HOURS FOR PAIN TAKE WITH FOOD. TAKE SCHEDULED EVERY 6 HOURS FOR ONE DAY. THEN EVERY 6 HOURS NEEDED. 13) METFORMIN HCL 1000MG TAB TAKE ONE TABLET BY MOUTH ACTIVE TWICE A DAY WITH MEALS FOR BLOOD SUGAR CONTROL. AVOID ALCOHOL. DISCONTINUE BEFORE GETTING XRAY DYE. 14) NALOXONE HCL 8MG/SPRAY SOLN NASAL SPRAY USE 1 SPRAY ACTIVE (8MG) INTO ONE NOSTRIL ONLY ONE-TIME FOR OPIOID OVERDOSE DO NOT PRIME NASAL SPRAY. SPRAY ONE DOSE IN ONE NOSTRIL, GIVE ADDITIONAL DOSE IF PATIENT DOES NOT START BREATHING WITHIN 2-3 MINUTES OR STOPS BREATHING AGAIN. CALL 911. IF USED, NOTIFY PROVIDER. 15) OXYCODONE HCL 5MG TAB TAKE ONE-HALF TABLET BY MOUTH ACTIVE ONCE A DAY NEEDED FOR POST-OPERATIVE PAIN MAY CAUSE CONSTIPATION. DO NOT TAKE WITH HYDROCODONE/ACETAMINOPHEN 16) PANTOPRAZOLE NA 40MG EC TAB TAKE ONE TABLET BY MOUTH ACTIVE TWO TIMES A DAY BEFORE MEALS TO LOWER STOMACH ACID - TAKE 30 MINUTES BEFORE MEAL(S) 17) POLYETHYLENE GLYCOL 3350 ORAL PWDR MIX AND DRINK 1 ACTIVE CAPFUL BY MOUTH ONCE A DAY FOR CONSTIPATION (MEASURE WITH CAP AND MIX IN 8 OZ OF WATER) 18) PREGABALIN 200MG ORAL CAP TAKE ONE CAPSULE BY MOUTH ACTIVE THREE TIMES A DAY FOR NERVE PAIN 19) PSYLLIUM ORAL PWD MIX AND DRINK 1 TEASPOONFUL BY ACTIVE MOUTH ONCE A DAY FOR FIBER SUPPLEMENTATION MIX IN GLASS OF WATER/JUICE. FLAVOR SUBSTITUTIONS MAY/WILL OCCUR AND SPECIFIC VARIETIES WILL NOT BE PROVIDED. 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 Handwritten corrections, additions and/or deletions were made to the list. Corrected Outpatient Medication List was provided to the patient/caregiver. REVIEW OF SYSTEMS: General: Normal Ears, Nose, Mouth, Throat: Normal Eye: Normal Cardiovascular: Normal Respiratory: Normal ABD/GI: Normal Musculoskeletal/Extremities: Normal /MARKETING INTELLIGENCE ANALYST: Normal Hematology & Lymph: Normal Endocrine: Normal Skin: Normal PHYSICAL EXAMINATION: General appearance:nad. VITALS (most recent, as listed in the electronic record): Temperature: 98.1 F [36.7 C] (05/19/2024 11:27) BP: 130/64 (05/19/2024 11:27) Pulse: 72 (05/19/2024 11:27) Resp: 20 (05/19/2024 11:27) PulsOx: 95% (05/19/2024 11:27) Pain: 6 (05/19/2024 11:27) Weight: Measurement DT WEIGHT LB(KG)[BMI] 05/19/2024 11:27 221.3(100.38)[28*] 05/03/2024 05:25 210.1(95.30)[27] 05/02/2024 18:35 221.5(100.47)[28*] Ears, Nose, Mouth, Throat: Normal. Eye: Normal sclera Normal PERRLA Cardiovascular: S1 S2 Nl. Respiratory: Clear ABD/GI: Normal. Extremities: Normal /MARKETING INTELLIGENCE ANALYST: Deferred Hematology & Lymph: Normal Endocrine: Normal Psych: Normal Neuro: Normal. CN 2-12 WNL. Strength 4/4 all ext Reflexes 2+ x 4. Skin: Normal. DATA REVIEW: HGA1C 5.9 % 03/27/2024 11:36 HGA1C 5.8 % 09/12/2022 11:13 HGA1C 5.6 % 01/02/2022 20:00 HGA1C 5.8 % 06/30/2021 11:08 HGA1C 5.7 % 12/24/2020 09:24 ====== Lipid Panel: TRIGLYCERIDE 242 H mg/dL 03/27/2024 11:37 CHOLESTEROL 176 mg/dL 03/27/2024 11:37 HDL(New) 33 L mg/dL 03/27/2024 11:37 CALCULATED LDL 95 mg/dL 03/27/2024 11:37 ==== CMP: SODIUM 139 mEq/L 04/22/2024 10:25 POTASSIUM 4.6 mEq/L 04/22/2024 10:25 CHLORIDE 106 mEq/L 04/22/2024 10:25 UREA NITROGEN 10.6 mg/dL 04/22/2024 10:25 CREATININE 0.93 mg/dL 04/22/2024 10:25 CALCIUM 9.7 mg/dL 04/22/2024 10:25 PROTEIN 6.7 g/dL 04/22/2024 10:25 ALBUMIN 4.1 g/dL 04/22/2024 10:25 ALKALINE PHOSPHATASE 92 U/L 04/22/2024 10:25 ALT/SGPT 31 U/L 04/22/2024 10:25 AST/SGOT 26 U/L 04/22/2024 10:25 TOTAL BILIRUBIN 0.5 mg/dL 04/22/2024 10:25 CARBON DIOXIDE 22 mEq/L 04/22/2024 10:25 GLUCOSE 89 mg/dL 04/22/2024 10:25 EGFR (CKD-EPI 2020) 85.6 04/22/2024 10:25 ===== CBC: WBC 7.2 10*3/uL 04/22/2024 10:25 RBC 5.52 10*6/uL 04/22/2024 10:25 HGB 15.7 g/dL 04/22/2024 10:25 HCT 47.2 % 04/22/2024 10:25 MCV 85.5 fL 04/22/2024 10:25 MCH 28.4 pg 04/22/2024 10:25 MCHC 33.3 g/dL 04/22/2024 10:25 RDW 14.9 % 04/22/2024 10:25 PLT 229 10*3/uL 04/22/2024 10:25 MPV 12.0 H fL 04/22/2024 10:25 NEUTROPHILS, AUTO % 63 % 04/22/2024 10:25 LYMPHOCYTES, AUTO % 26 % 04/22/2024 10:25 MONOCYTES, AUTO % 10 % 04/22/2024 10:25 EOSINOPHILS, AUTO % 1 % 04/22/2024 10:25 BASOPHILS, AUTO % 0 % 04/22/2024 10:25 NEUTROPHILS, ABSOLUTE 4.53 10*3/uL 04/22/2024 10:25 LYMPHOCYTES, ABSOLUTE 1.88 10*3/uL 04/22/2024 10:25 MONOCYTES, ABSOLUTE 0.70 10*3/uL 04/22/2024 10:25 EOSINOPHILS, ABSOLUTE 0.05 10*3/uL 04/22/2024 10:25 BASOPHILS, ABSOLUTE 0.02 10*3/uL 04/22/2024 10:25 NRBC% 0 #/100 (WBCs) 11/30/2023 13:10 NEUTROPHILS 86.1 % 10/17/2023 09:10 LYMPHOCYTES 5.2 % 10/17/2023 09:10 MONOCYTES 4.4 % 10/17/2023 09:10 ATYPICAL LYMPHOCYTES 4.3 % 10/17/2023 09:10 IMMATURE PLT FRACTION 5.2 % 11/30/2023 13:10 ====== PROST. SPECIFIC AG.(PB-STL) 1.518 ng/mL 01/11/2024 09:10 PROST. SPECIFIC AG.(PB-STL) 1.869 ng/mL 09/12/2022 11:13 PROST. SPECIFIC AG.(PB-STL) 1.881 ng/mL 06/30/2021 11:08 PROST. SPECIFIC AG.(PB-STL) 2.291 ng/mL 05/05/2020 10:33 PROST. SPECIFIC AG.(PB-STL) 2.400 ng/ml 09/25/2019 11:41 ====== TSH: TSH 2.309 uIU/mL 01/11/2024 09:10 ===== VITAMIN D, 25-HYDROXY 61.0 ng/mL 01/11/2024 09:10 VITAMIN D, 25-HYDROXY 57.9 ng/mL 09/12/2022 11:13 VITAMIN D, 25-HYDROXY 19.1 L ng/mL 06/30/2021 11:08 ====== INR: INR VALUE 1.0 INR 08/14/2023 13:38 PROTIME 11.1 sec 08/14/2023 13:38 ====== UA: URINE COLOR Yellow 11/30/2023 13:10 APPEARANCE Clear 11/30/2023 13:10 U.PH 5.5 11/30/2023 13:10 U.BILIRUBIN Negative mg/dL 11/30/2023 13:10 U.NITRITE Negative mg/dL 11/30/2023 13:10 URINE RBC/HPF 1 /HPF 11/30/2023 13:10 URINE WBC/HPF <1 /HPF 11/30/2023 13:10 SQUAMOUS EPITH. <1 /HPF 11/30/2023 13:10 MUCUS RARE /LPF 11/30/2023 13:10 HYALINE CASTS 1 /LPF 11/30/2023 13:10 ====== IM - IMMUNIZATIONS ADMINISTERED Immunization Series Date Facility Reaction Info COVID-19 (PFIZER), MRNA, LNP-S, * 3 04/23/2021 [facility] COVID-19 (PFIZER), MRNA, LNP-S, * 2 09/02/2020 [facility] <C> COVID-19 (PFIZER), MRNA, LNP-S, * 1 08/12/2020 [facility] <C> INFLUENZA (HISTORICAL) 05/15/2005 [facility] INFLUENZA (HISTORICAL) 05/31/2004 [facility] INFLUENZA (HISTORICAL) 06/03/2003 [facility] INFLUENZA, HIGH-DOSE, QUADRIVALE* C 05/10/2023 [facility] INFLUENZA, HIGH-DOSE, QUADRIVALE* 04/28/2022 No Site <C> INFLUENZA, HIGH-DOSE, QUADRIVALE* 04/23/2021 No Site <C> INFLUENZA, SPLIT VIRUS, QUADRIVA* 05/15/2019 [facility] INFLUENZA, SPLIT VIRUS, QUADRIVA* 05/27/2018 [facility] INFLUENZA, SPLIT VIRUS, TRIVALEN* 04/20/2017 [facility] INFLUENZA, SPLIT VIRUS, TRIVALEN* 04/20/2015 [facility] INFLUENZA, UNSPECIFIED FORMULATI* C [facility]* INFLUENZA, UNSPECIFIED FORMULATI* 04/23/2021 [facility] INFLUENZA, UNSPECIFIED FORMULATI* [facility]* INFLUENZA, UNSPECIFIED FORMULATI* 05/20/2014 [facility] INFLUENZA, UNSPECIFIED FORMULATI* 04/28/2013 [facility] INFLUENZA, UNSPECIFIED FORMULATI* 06/06/2012 [facility] INFLUENZA, UNSPECIFIED FORMULATI* 04/24/2011 [facility] INFLUENZA, UNSPECIFIED FORMULATI* 05/02/2010 [facility] * INFLUENZA, UNSPECIFIED FORMULATI* 04/13/2009 [facility] INFLUENZA, UNSPECIFIED FORMULATI* [facility]* INFLUENZA, UNSPECIFIED FORMULATI* [facility] .* INFLUENZA, UNSPECIFIED FORMULATI* 04/30/2006 DR [facility]* INFLUENZA, UNSPECIFIED FORMULATI* 05/15/2005 [facility] INFLUENZA, UNSPECIFIED FORMULATI* 05/31/2004 [facility] INFLUENZA, UNSPECIFIED FORMULATI* 06/03/2003 [facility] INFLUENZA, UNSPECIFIED FORMULATI* 05/26/2002 [facility] INFLUENZA, UNSPECIFIED FORMULATI* 08/20/2001 [facility]* OUTSIDE PNEUMOVAX (HISTORICAL) In [facility]* <C> PNEUMOCOCCAL CONJUGATE PCV 13 11/13/[address] [facility]* PNEUMOCOCCAL POLYSACCHARIDE PPV23 11/09/2015 [facility]* RSV, BIVALENT, PROTEIN SUBUNIT R* 10/26/[address] [facility]* TD(ADULT) UNSPECIFIED FORMULATION 11/19/2001 [facility]* TDAP 11/05/2020 [facility]* TDAP 08/17/2011 [facility]* <C> ZOSTER LIVE 11/06/2008 [facility]* ZOSTER RECOMBINANT 2 09/25/2019 [facility]* ZOSTER RECOMBINANT 1 12/06/2018 [facility]* CONTRAINDICATED No data available REFUSED ======= No data available <C> See the Detailed Immunizations Health Summary Component[DIM] for Comments * Value is truncated; see the Detailed Immunizations Health Summary Component[DIM] for complete text ST - SKIN TESTS No data available Result: Acceptable Follow-up Action: Re check prior to next visit. Data results reviewed with patient and/or caregiver. ASSESSMENT/PLAN: 1. pt got flu and covid shot at [facility]. 2. asthma. cct 3. hld cct 4. htn stable. 5. trigeminal neuralgia 6. hernia (s/p surgery) no issues 7. chronic pain cct. RETURN TO CLINIC: 6 months. SUMMARY STATEMENT: Plan of care has been discussed with including expected therapeutic benefits and potential side effects of prescribed medication and treatments. [place] verbalizes understanding and is in agreement with the plan of care. Patient was instructed to keep all scheduled appointments and contact director of public safety for any additional problems. PREVENTION & SCREENING: ALCOHOL: Clinical Reminder not due now or within a month COLORECTAL CANCER: Clinical Reminder not due now or within a month BLOOD PRESSURE: Clinical Reminder not due now or within a month HEMOGLOBIN A1C: Clinical Reminder not due now or within a month COVID-19 Immunization - L,N,P,PH,U: Refused Moderna Monovalent COVID-19 vaccine Immunization: COVID-19 (MODERNA), MRNA, LNP-S, PF, 50 MCG/0.5 ML (AGES 12+ YEARS) Refusal Reason: PATIENT DECISION Patient refuses all immunization(s) in the COVID-19 group Date Documented: 05/19/24 11:45 Assess Statin Use - Lipids (CVD/DM) - N,P,PH: The patient is already on a statin. The patients prescription for a statin was reviewed and updated. PAVE Foot Check - L,N,P,PH,PO,PT,U: A complete foot check was completed at this encounter. VISUAL INSPECTION: Includes inspection for skin breaks, deformity, erythema, trauma, pallor on elevation, dependent rubor, nail deformities, extensive callus and pitting edema. Visual exam results: Abnormal Observations: Thickened toenails PEDAL PULSES: Includes palpation of dorsalis and posterior tibial pulses and signs/symptoms of vascular compromise like pain, pallor, parasthesia or paralysis. Present (even if diminished) SENSORY CHECK: Includes 10 gram Monofilament ([place]-Maxime) test of sensation. Intact (Greater than or equal to 80% of sites checked) Abnormal (Less than 80% of sites checked): Abnormal (decreased or absent sensation to monofilament): LOW-RISK: LOW RISK INFORMATION PROVIDED: 1. Advised patient not to walk barefoot. 2. Explained the importance of daily foot checks for changes. 3. Stressed the importance of daily foot hygiene, including bathing and complete drying. Prior Approval/Non-formulary Drug: MEDICATION USE EVALUATION /es/ NATALIO BRIDGES MD STAFF PHYSICIAN Signed: 05/19/2024 11:48 10/28/2024 ADDENDUM STATUS: COMPLETED Vet requesting refill on Lyrica. /es/ SHASHI FLOREZ, MSN, AGNP-C NURSE PRACTITIONER Signed: 10/28/2024 14:11 Receipt Acknowledged By: * AWAITING SIGNATURE * NATALIO BRIDGES [facility] May 19, 2024 11:29 AM NURSING NOTE: LOCAL TITLE: V15 PACT FACE TO FACE NOTE STL STANDARD TITLE: NURSING NOTE DATE OF NOTE: MAY 19, 2024@11:29 ENTRY DATE: MAY 19, 2024@11:29:06 AUTHOR: ZHANG MANNING EXP COSIGNER: URGENCY: STATUS: COMPLETED Provider Visit: Patient Identifiers : Full Name Date of Reason for visit: Established Follow-Up Mode of Arrival: Ambulatory Allergy Review: LISINOPRIL, FENTANYL, COCONUTS Allergy list reviewed and remains current. Recent Vital Signs: Temperature: 98.1 F [36.7 C] (05/19/2024 11:27) Pulse: 72 (05/19/2024 11:27) Respiration: 20 (05/19/2024 11:27) B/P: 130/64 (05/19/2024 11:27) Pain: 6 (05/19/2024 11:27) Wt: 221.3 lb [100.38 kg] (05/19/2024 11:27) Ht: 74 in [188.0 cm] (05/02/2024 10:09) BMI: 28.5 POX: 95% (05/19/2024 11:27) PERSONAL HEALTH INVENTORY Notes: No data available for PHI note titles PERSONAL HEALTH INVENTORY - MAP: Health And Well Being [C] 04/22/2020 Whs - Map To The Map Personal Health Inventory (Short) 06/11/2019 Phis What Do You Live For 03/11/2019 Phis What Do You Live For grandkids Php 10/24/2023 Personal Health Plan [place], Purpose (MAP) family 03/20/2023 Personal Health Plan [place], Purpose (MAP) family 09/11/2022 Personal Health Plan [place], Purpose (MAP) family 02/27/2022 Personal Health Plan [place], [place] (MAP) family 12/29/2021 Personal Health Plan [place], [place] (MAP) family 12/29/2020 Personal Health Plan [place], [place] (MAP) family What matters most to you in your life right now? 's Response: granddaughters WHOLE HEALTH SHARED GOALS: PERSONAL HEALTH PLAN - SHARED GOALS: No data available for: [facility] Shared Goals SHARED GOALS loss weight Would you like to discuss any personal problem, family problem, alcohol use, drug use, or a mental or emotional illness? No [facility] ([facility]), please select appointment type: Face to face: No- Are you interested in getting this done? No Contact provided Primary Care phone number and encouraged to call if any questions or concerns. Review that after hours nurse line [phone] and emergency room are available 19/02 for patient use. Contact verbalized good understanding. No notification required for this note. PTSD Screening - V: PC-PTSD-5 A PTSD screening test (PC-PTSD-5) was positive (score=4). IN THE PAST MONTH, have you ever had any experience that was so frightening, horrible or traumatic. For example: A serious accident or fire a physical or sexual assault or abuse An earthquake or flood A war Seeing someone be killed or seriously injured Having a loved one through homicide or suicide 1. Have you ever experienced this kind of event? YES 2. Had nightmares about the event(s) or thought about the event(s) when you did not want to? YES 3. Tried hard not to think about the event(s) or went out of your way to avoid situations that reminded you of the event(s)? YES 4. Been constantly on guard, watchful, or easily startled? YES 5. [employer] numb or detached from people, activities, or your surroundings? NO 6. [employer] guilty or unable to stop blaming yourself or others for the event(s) or any problems the event(s) may have caused? YES Licensed Independent Provider notified of positive screen and need for follow-up. Name of provider notified: Dr. Bridges Frail/Elderly Screen: ADL Screen - [place] Index of [place] in Activities of Daily Living Bathing: (3 Points) Receives no assistance (gets in and out of tub by self, if tub is usual means of bathing) Dressing: (3 Points) Gets clothes and gets completely dressed without assistance. Toileting: (3 Points) Goes to toilet room , cleans self, and arranges clothes without assistance (may use object for support such as cane, walker, or wheelchair, and may manage own night bedpan or commode, emptying same next morning) Transferring: (3 Points) Moves in and out of bed and in and out of chair without assistance (may be using object for support, such as cane or walker) Continence: (3 Points) Controls urination and bowel movement completely by self Feeding: (3 Points) Feeds self without assistance Total Score: 18 Points 18 = High (patient independent) 6 = Low (patient very dependent) IADL Screen - [place] Instrumental Activities of Daily Living Scale Ability to use telephone: (1 point) Operates Telephone on own initiative; looks up and dials numbers. Shopping: (1 point) Takes care of all shopping needs independently. Food preparation: (1 point) Plans, prepares, and serves adequate meals independently. Housekeeping: (1 point) Maintains house alone with occasional assistance (heavy work). Laundry: (1 point) Does personal laundry completely. Mode of transportation: (1 point) Travels independently on public transportation or drives own car. Responsibility for own medications: (1 point) Is responsible for taking medications in correct dosages at correct times. Ability to handle finances: (1 point) Manages financial matters independently (budgets, writes checks, pays rent and bills, goes to bank); collects and keeps track of income. Total score: 8 points 8 = High function, independent 0 = Low function, dependent Falls Screen: No falls within the past 12 months. Tobacco Use Screening - AT,DE,L,M,N,P,PH,PS,S: The patient is a former tobacco user. The patient quit fifteen or more years ago. COVID-19 Immunization - L,N,P,PH,U: Vaccine given previously - no written/electronic documentation available Comment: Margaret 03/2024 in [place] The patient was instructed to bring a copy of their COVID-19 vaccine information to their next appointment so that this can be accurately recorded in their [place] medical record. Influenza Immunization - L,N,P,PH,U: The patient has received the seasonal influenza vaccine for the current season at another location. Documented: INFLUENZA, UNSPECIFIED FORMULATION Historical Date Administered: Mar 2024 Exact date unknownSeries: Complete Outside Location: [facility] Information Source: FROM OTHER REGISTRY /es/ ZHANG MANNING RN, MSN REGISTERED NURSE Signed: 05/19/2024 11:[address] [facility]
--- OUTSIDE RECORDS SUMMARY | 2024-11-02 11:52 | XMS_ITS ---
Author Name [facility] [facility] [place] Address [address] [place] [address] Care Team Providers Care Supervisor Cook Room Name Role Phone NATALIO BRIDGES Primary Care Provider Unavail le Insurance Providers: [...] PART B Oct 28, 2001 PART B [id number] Petra DUQUE PATIENT MEDICARE (WNR) MEDICARE (M) PART A Oct 28, 2001 PART A [id number] [id number] Petra DUQUE PATIENT MEDICARE (WNR) MEDICARE (M) PART A Oct 28, 2001 PART A [id number] Petra DUQUE PATIENT Selected Encounter This section includes the information on record at [place] for the Encounter. Date/Time Encounter Type Encounter Description Reason Provider Source Mar 27, 2024 12:40 PM OFFICE O/P EST MOD 30 MIN PULMONARY/CHEST ICD-10-CM J44.9 Chronic obstructive pulmonary disease, unspecified ELAINA PALACIO Ernie Encounter Template Text not used by [place] Assessments - Encounter Diagnoses This section includes the primary and secondary diagnoses documented for the Encounter. Date/Time Primary/Secondary Diagnosis Diagnosis Name Provider Source Mar 27, 2024 11:27 AM PRIMARY Chronic obstructive pulmonary disease, unspecified ELAINA PALACIO [facility] Mar 27, 2024 11:27 AM SECONDARY Other nonspecific abnormal finding of lung field ELAINA PALACIO [facility] Plan of Treatment: Future Appointments (+ 6 months) and Future Tests (+/- 45 days) The Plan of Treatment section includes future care activities for the [facility] This section includes future appointments and future orders which are active, pending or scheduled. Future Appointments This section includes appointments that were scheduled to occur 6 months from the date of the Encounter, up to a maximum of 20 appointments. The data comes from all [place] treatment facilities. Appointment Date/Time Appointment Type Appointme nt Facility Name Apr 10, 2024 10:30 AM AMBULATORY - SURGERY [facility] Apr 22, 2024 10:00 AM AMBULATORY - SURGERY [facility] May 02, 2024 09:00 AM AMBULATORY - NONE [facility] May 06, 2024 03:30 PM AMBULATORY - MEDICINE [facility] May 19, 2024 11:00 AM AMBULATORY - MEDICINE [facility] May 22, 2024 09:30 AM AMBULATORY - SURGERY [facility] May 27, 2024 09:30 AM AMBULATORY - NONE . [facility] Jul 11, 2024 02:00 PM AMBULATORY - NONE [facility] Aug 07, 2024 07:30 AM AMBULATORY - NONE [facility] Aug 15, 2024 10:30 AM AMBULATORY - MEDICINE [facility] Sep 04, 2024 01:30 PM AMBULATORY - MEDICINE [facility] Sep 05, 2024 10:00 AM AMBULATORY - NONE [facility] Sep 18, 2024 12:20 PM AMBULATORY - MEDICINE [facility] Sep 22, 2024 11:30 AM AMBULATORY - NONE [facility] Lab Results: +/- 30 days of the [...] Result - Unit Interpretation Reference Range Comment Apr 22, 2024 10:25 AM [facility] COMPREHENSIVE METABOLIC PANEL Specimen Type: PLASMA Comment: K result may show a positive bias due to hemolysis. Specimen slightly hemolyzed. Ordering Provider: CHON COULTER Report Released Date/Time: Apr 22, 2024 10:03 AM Reporting Lab: [place] [address] [facility] [id number] Performing Lab: [address] [address] CREATININE 0.93 mg/dL 0.7-1.3 UREA NITROGEN 10.6 [...] 22, 2024 10:25 AM [facility] CBC Specimen Type: BLOOD No comment entered. Ordering Provider: CHON COULTER Report Released Date/Time: Apr 22, 2024 10:03 AM Reporting Lab: [facility] [address] [facility] [id number] Performing Lab: [address] [address] WBC 7.2 10*3/uL 3.6-11.2 RBC 5.52 10*6/uL [...] 10*3/uL 0.00-0.60 BASOPHILS, ABSOLUTE 0.02 10*3/uL 0.00-0.20 Mar 27, 2024 11:46 AM [facility] URINE DRUG SCREEN (STL) Specimen Type: URINE Comment: The cut-off value for this test was laboratory developed and its performance characteristics confirmed by the [facility] laboratory thru method comparison with reference laboratory and medication chart review. The laboratory is regulated under CLIA as qualified to perform high-complexity testing. This test is used for clinical purposes in conjunction with other laboratory tests. Ordering Provider: NATALIO BRIDGES Report Released Date/Time: Mar 27, 2024 09:30 AM Reporting Lab: [facility] [address] [facility] [address] Performing Lab: [address] [address] ETHANOL Negative mg/dL 0-20 AMPHET/METHAMPHE TAMINE Negative ng/mL COCAINE METABOLITES Negative ng/mL BENZODIAZEPINES (STL) Negative ng/mL CANNABINOIDS Negative ng/mL METHADONE Negative ng/mL OPIATES POSITIVE ng/mL CREATININE URINE/OTHERS 255.3 mg/dL H 63-166 OXYCODONE (JNVTJ-IUC-BL) Negative ng/mL BUPRENORPHINE (STL-PB-MA) Negative ng/mL FENTANYL (STL-PB) Negative ng/mL Mar 27, 2024 11:37 AM [facility] LIPID PANEL (STL) Specimen Type: PLASMA No comment entered. Ordering Provider: JEANNETTE PEÑA Report Released Date/Time: December 11, 2023 10:25 AM Reporting Lab: [place] [id number] [facility] [address] Performing Lab: [address] [address] CHOLESTEROL 176 mg/dL 0-200 TRIGLYCERIDE 242 mg/dL H 0-150 CALCULATED LDL 95 mg/dL HDL(New) 33 mg/dL L >40 Mar 27, 2024 11:36 AM [facility] HGA1C Specimen Type: BLOOD No comment entered. Ordering Provider: NATALIO BRIDGES Report Released Date/Time: Mar 27, 2024 09:29 AM Reporting Lab: [facility] [address] [facility] [address] Performing Lab: [address] [address] HGA1C 5.9 4.0-6.0 Vital Signs: All taken on the encounter date This section contains inpatient and outpatient Vital Signs collected on the date of the Encounter. Date/Time Temperature Pulse Blood Pressure Respiratory Rate SP02 Pain Height Weight Body Mass Index Source Mar 27, 2024 11:12 AM 98 67 148/72 16 98 0 74 220 28 [facility] Social History: Smoking Status (Most current) and Tobacco Use (All prior to encounter date) This section includes the most current, and the historical, smoking and tobacco- related health factors from the [place] facility where the Encounter took place. Current Smoking Status This section includes the most current smoking, or tobacco-related health factor, from the [place] facility where the Encounter took place. Date/Time Current Smoking Status Comment Facil ity Oct 17, 2023 04:53 PM ORYX ADMIT TOBACCO SCREEN NO [facility] Tobacco Use History This section includes a history of the smoking, or tobacco-related health factors, that were collected on or before the date of the Encounter. The data comes from the [place] facility where the Encounter took place. Date/Time Smoking Status/Tobacco Use Comment Alejandro romero Oct 17, 2023 03:00 PM ORYX ADMIT TOBACCO SCREEN NO [facility] Dec 31, 2021 03:07 PM ORYX ADMIT TOBACCO SCREEN NO [facility] Apr 06, 2017 11:33 PM QUIT TOBACCO >7 YEARS AGO [facility] Mar 21, 2017 04:29 AM QUIT TOBACCO >7 YEARS AGO [facility] Jan 20, 2014 09:56 AM QUIT TOBACCO >7 YEARS AGO [facility] Jan 02, 2013 01:23 PM QUIT TOBACCO >7 YEARS AGO [facility] May 25, 2010 01:35 PM LIFETIME NON-USER OF TOBACCO [facility] Aug 17, 2009 01:04 PM QUIT TOBACCO >12 M O & <7 YRS AGO [facility] Sep 17, 2008 01:34 PM QUIT TOBACCO >12 M O & <7 YRS AGO [facility] Sep 20, 2006 10:57 AM QUIT TOBACCO >12 M O & <7 YRS AGO [facility] Jun 05, 2006 10:49 AM CURRENT NON-TOBACC O USER-HX OF USE [facility] Jun 05, 2006 10:49 AM TOBACCO TERMINATION STAGE [facility] Jul 14, 2005 11:00 AM CURRENT NON-TOBACC O USER-HX OF USE [facility] Jul 14, 2005 11:00 AM TOBACCO TERMINATION STAGE [facility] Oct 23, 2004 04:56 PM CURRENT NON-TOBACC O USER-HX OF USE [facility] Oct 23, 2004 04:56 PM TOBACCO ACTION STAGE [facility] Apr 07, 2004 10:58 AM CURRENT NON-TOBACC O USER-HX OF USE [facility] Apr 07, 2004 10:58 AM TOBACCO MAINTENANCE STAGE [facility] December 18, 2002 11:17 AM CURRENT TOBACCO USER [facility] December 18, 2002 11:17 AM TOBACCO USE [facility] Apr 07, 2002 02:25 PM CURRENT NON-TOBACC O USER-RECENTLY QUIT quit 3 mo ago [facility] Apr 07, 2002 02:25 PM TOBACCO USE quit 3 mo ago [facility] Nov 19, 2001 10:50 AM CURRENT TOBACCO USER [facility] Jul 16, 2001 08:35 AM CURRENT TOBACCO USER [facility] Jun 18, 2001 08:31 AM CURRENT TOBACCO USER [facility] Jun 18, 2001 08:31 AM TOBACCO USE [facility] Advance Directives: All historical and current Section Date Range: From patient's date of to the date document was created. This section includes ALL of a patient's completed or amended [place] Advance and Rescinded Directives. The entries below indicate that a directive exists for the patient, but an actual copy is not included with this document. The data comes from all [facility]. Date Advance Directives Provider Source Feb 18, 2018 ADVANCE DIRECTIVE DISCUSSION EMMETT CAMILO [facility] Radiology Reports: +/- 30 days of the [...] the Encounter. The data comes from all [place] treatment facilities. Date/Time Radiology Report Provider Source Apr 22, 2024 10:54 AM CHEST X-RAY, 2 VIE WS: DUNIAMAURILIO BAUMANNE [id number] -[id number] M Exm Date: APR 22, 2024@10:54 Req Phys: CHON COULTER Pat Loc: [facility] PREOP EVAL 1 (Req'g Lo Img Loc: -MAIN RADIOLOGY SUITE Service: Unknown [facility], [address] [place] [address] (Case [id number] COMPLETE) CHEST X-RAY, 2 VIEWS (RAD Detailed) CPT:76694 Reason for Study: preop Clinical History: Report Status: Verified Date Reported: APR 22, 2024 Date Verified: APR 22, 2024 Condenser Tube Tender E-Sig:/ES/Jelani Luong MD Report: FINDINGS: The examination was compared with previous examination of September. Heart size is normal. Mediastinal structures appear unremarkable. Both lungs are fully expanded without evidence of pulmonary infiltrates or additional significant findings. Impression: No evidence of acute cardiopulmonary disease. Primary Interpreting Staff: Jelani Luong MD, Radiologist (Condenser Tube Tender) /QMB JELANI LUONG [facility] Encounter Notes: All associated encounter notes This section contains the clinical notes associated to the Encounter. Date/Time Encounter Note(s) Provider Source Mar 27, 2024 11:07 AM PULMONARY OUTPATIE NT NOTE: LOCAL TITLE: PULMONARY OUTPATIENT FOLLOW UP ST STANDARD TITLE: PULMONARY OUTPATIENT NOTE DATE OF NOTE: MAR 27, 2024@11:07 ENTRY DATE: MAR 27, 2024@11:07:52 AUTHOR: JENNIFER PALACIO EXP COSIGNER: URGENCY: STATUS: COMPLETED Pulmonary outpatient follow up A/P: 1. COPD CARP referral completed Stop Breztri when receives Stiolto. He has no eo's. Continue albuterol prn RTC w az 6 months. Ordered. 2. RUL PNA--resolved RTC as above. ~~~~~~~~~~~~~~~~~~~~~~~~~~~~ ~~~~~~~~~~~~~~~~~~~~~~~~~~~~ ~~~~~~~~~~~~~~~~~~~~~ Feb 2024 HPI: feels well. Since last seen, no AECOPD, no hospitalizations for breathing problems, ER/UC visits, need for steroids, abx or other tx for pulmonary infections. Doing ok on Breztri. Rare use o albuterol. Reviewed images together. No remnants of prior infiltrate. Initial HPI: Briefly, 73 yo w several bouts of Covid most recently Fall of last year. He has been unable to recover to his baseline. PNA most recently. Steroids and inhalers not helping. Remote smoking hx Humidity strong perfume and smoke aggravate him Exam is normal Data - PFTs October 2023: suggestive for mild restrictive pattern, also has 300cc improvement from FVC to SVC, no BDE, mild diffusion defect. FEV1 54% FVC 56% FEV1/FVC 104%, TLC 73%, RV 100%, DLCO 59%. CT chest Impression: Resolution of right upper lobe pneumonia. Nodules more rostrally situated in the right lung are similar to the 2016 examination. No new or enlarging nodules are identified. Emphysema with some fibrotic changes, stable. Apparent hyperdense cyst along the anterior margin left kidney, not suspiciously changed. Please refer to abdominal CT dated 08/14/2023 for further characterization. /radha/ JENNIFER PALACIO MD, MPH Interventional Pulmonology Signed: 03/27/2024 13:46 JENNIFER PALACIO [facility]ic [facility]
--- OUTSIDE RECORDS SUMMARY | 2024-11-02 11:53 | XMS_ITS | Encounter Summary ---
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 Date/Time Encounter Type Encounter Description Reason Provider Source Mar 20, 2024 01:32 PM OFFICE O/P EST MOD 30 MIN AMB ECG MONITORING ICD-10-CM R42 Dizziness and giddiness JUJU WILBURN [facility] Encounter Template Text not used by [place] Assessments - Encounter Diagnoses This section includes the primary and secondary diagnoses documented for the Encounter. Date/Time Primary/Secondary Diagnosis Diagnosis Name Provider Source Apr 01, 2024 04:17 PM PRIMARY Dizziness and giddiness JUJU WILBURN [facility] Plan of Treatment: Future Appointments (+ 6 months) and Future Tests (+/- 45 days) The Plan of Treatment section includes [facility] care activities [facility] the [facility] This section includes future appointments and future orders which are active, pending or scheduled. Future Appointments This section includes appointments that were scheduled to occur 6 months from the date of the Encounter, up to a maximum of 20 appointments. The data comes from all [place] treatment facilities. Appointment Date/Time Appointment Type Appointme nt Facility Name Mar 26, 2024 11:00 AM AMBULATORY - NONE [facility] Mar 27, 2024 12:40 PM AMBULATORY - MEDICINE [facility] Apr 10, 2024 10:30 AM AMBULATORY - SURGERY [facility] Apr 22, 2024 10:00 AM AMBULATORY - SURGERY [facility] May 02, 2024 09:00 AM AMBULATORY - NONE [facility] May 06, 2024 03:30 PM AMBULATORY - MEDICINE [facility] May 19, 2024 11:00 AM AMBULATORY - MEDICINE [facility] May 22, 2024 09:30 AM AMBULATORY - SURGERY [facility] May 27, 2024 09:30 AM AMBULATORY - NONE [facility] Jul 11, 2024 02:00 PM AMBULATORY - NONE [facility] Aug 07, 2024 07:30 AM AMBULATORY - NONE . [facility] Aug 15, 2024 10:30 AM AMBULATORY - MEDICINE [facility] Sep 04, 2024 01:30 PM AMBULATORY - MEDICINE [facility] Sep 05, 2024 10:00 AM AMBULATORY - NONE [facility] Sep 18, 2024 12:20 PM AMBULATORY - MEDICINE [facility] Lab Results: +/- 30 days of the [...] Result - Unit Interpretation Reference Range Comment Mar 27, 2024 11:46 AM [facility] URINE DRUG SCREEN (STL) Specimen Type: URINE Comment: The cut-off value for this test was laboratory developed and its performance characteristics confirmed by the [facility] laboratory thru method comparison with reference laboratory and medication chart review. The laboratory is regulated under CLIA as qualified to perform high-complexity testing. This test is used for clinical purposes in conjunction with other laboratory tests. Ordering Provider: NATALIO BRIDGES Report Released Date/Time: Mar 27, 2024 09:30 AM Reporting Lab: [address] [address] Performing Lab: [address] [address] ETHANOL Negative mg/dL 0-20 AMPHET/METHAMPHE TAMINE Negative ng/mL COCAINE METABOLITES Negative ng/mL BENZODIAZEPINES (STL) Negative ng/mL CANNABINOIDS Negative ng/mL METHADONE Negative ng/mL OPIATES POSITIVE ng/mL CREATININE URINE/OTHERS 255.3 mg/dL H 63-166 OXYCODONE (RDPUO-JML-CZ) Negative ng/mL BUPRENORPHINE (STL-PB-MA) Negative ng/mL FENTANYL (STL-PB) Negative ng/mL Mar 27, 2024 11:37 AM [facility] LIPID PANEL (STL) Specimen Type: PLASMA No comment entered. Ordering Provider: JEANNETTE PEÑA Report Released Date/Time: December 11, 2023 10:25 AM Reporting Lab: [address] [address] Performing Lab: [facility] [address] [facility] [address] CHOLESTEROL 176 mg/dL 0-200 TRIGLYCERIDE 242 mg/dL H 0-150 CALCULATED LDL 95 mg/dL HDL(New) 33 mg/dL L >40 Mar 27, 2024 11:36 AM [facility] HGA1C Specimen Type: BLOOD No comment entered. Ordering Provider: NATALIO BRIDGES Report Released Date/Time: Mar 27, 2024 09:29 AM Reporting Lab: [facility] [address] [facility] [phone] Performing Lab: [facility] [address] [facility] [address] HGA1C 5.9 4.0-6.0 Social History: Smoking Status (Most current) and Tobacco Use (All prior to encounter date) This section includes the most current, and the historical, smoking and tobacco- related health factors from the [place] facility where the Encounter took place. Current Smoking Status This section includes the most current smoking, or tobacco-related health factor, from the [place] facility where the Encounter took place. Date/Time Current Smoking Status Comment Tristan pastrana Oct 17, 2023 04:53 PM ORYX ADMIT TOBACCO SCREEN NO [facility] Tobacco Use History This section includes a history of the smoking, or tobacco-related health factors, that were collected on or before the date of the Encounter. The data comes from the [place] facility where the Encounter took place. Date/Time Smoking Status/Tobacco Use Comment F nick Oct 17, 2023 03:00 PM ORYX ADMIT TOBACCO SCREEN NO [facility] Dec 31, 2021 03:07 PM ORYX ADMIT TOBACCO SCREEN NO [facility] Apr 06, 2017 11:33 PM QUIT TOBACCO >7 YEARS AGO [facility] Mar 21, 2017 04:29 AM QUIT TOBACCO >7 YEARS AGO [facility] Jan 20, 2014 09:56 AM QUIT TOBACCO >7 YEARS AGO [facility] Jan 02, 2013 01:23 PM QUIT TOBACCO >7 YEARS AGO [facility] May 25, 2010 01:35 PM LIFETIME NON-USER OF TOBACCO [facility] Aug 17, 2009 01:04 PM QUIT TOBACCO >12 M O & <7 YRS AGO [facility] Sep 17, 2008 01:34 PM QUIT TOBACCO >12 M O & <7 YRS AGO [facility] Sep 20, 2006 10:57 AM QUIT TOBACCO >12 M O & <7 YRS AGO [facility] Jun 05, 2006 10:49 AM CURRENT NON-TOBACC O USER-HX OF USE [facility] Jun 05, 2006 10:49 AM TOBACCO TERMINATION STAGE [facility] Jul 14, 2005 11:00 AM CURRENT NON-TOBACC O USER-HX OF USE [facility] Jul 14, 2005 11:00 AM TOBACCO TERMINATION STAGE [facility] Oct 23, 2004 04:56 PM CURRENT NON-TOBACC O USER-HX OF USE [facility] Oct 23, 2004 04:56 PM TOBACCO ACTION STAGE [facility] Apr 07, 2004 10:58 AM CURRENT NON-TOBACC O USER-HX OF USE [facility] Apr 07, 2004 10:58 AM TOBACCO MAINTENANCE STAGE [facility] December 18, 2002 11:17 AM CURRENT TOBACCO USER [facility] December 18, 2002 11:17 AM TOBACCO USE [facility] Apr 07, 2002 02:25 PM CURRENT NON-TOBACC O USER-RECENTLY QUIT quit 3 mo ago [facility] Apr 07, 2002 02:25 PM TOBACCO USE quit 3 mo ago [facility] Nov 19, 2001 10:50 AM CURRENT TOBACCO USER [facility] Jul 16, 2001 08:35 AM CURRENT TOBACCO USER [facility] Jun 18, 2001 08:31 AM CURRENT TOBACCO USER [facility] Jun 18, 2001 08:31 AM TOBACCO USE [facility] Advance Directives: All historical and current Section Date Range: From patient's date of to the date document was created. This section includes ALL of a patient's completed or amended [place] Advance and Rescinded Directives. The entries below indicate that a directive exists for the patient, but an actual copy is not included with this document. The data comes from all [place] facilities. Date Advance Directives Provider Source Feb 18, 2018 ADVANCE DIRECTIVE DISCUSSION EMMETT CAMILO [facility] Encounter Notes: All associated encounter notes This section contains the clinical notes associated to the Encounter. Date/Time Encounter Note(s) Provider Source Mar 20, 2024 01:32 PM CARDIOLOGY DIAGNOS TIC STUDY CONSULT: LOCAL TITLE: HOLTER MONITOR COMPLETED CONSULT STL STANDARD TITLE: CARDIOLOGY DIAGNOSTIC STUDY CONSULT DATE OF NOTE: MAR 20, 2024@13:32 ENTRY DATE: MAR 20, 2024@13:32:54 AUTHOR: JUJU WILBURN COSIGNER: URGENCY: STATUS: COMPLETED 14-day Ambulatory Holter Report Date test started: 02/28/2024 16:27 Date test ended: 03/13/2024 16:27 Date Report Received: 03/20/2024 Duration of Recordin days 00 hours 00 minutes Duration of Analysis: 13 days 21 hours 41 minutes Reason for Holter: R06.00 Dyspnea, unspecified; R42 Dizziness and giddiness High Heart Rate: 155 bpm-during fastest 3 beats of supraventricular tachycardia- fastest sinus heart rate 138 bpm Average Heart Rate: 69 bpm Low Heart Rate: 47 bpm @ 03:13:05 VENTRICULAR ECTOPY TOTAL number of Premature Ventricular Contractions: 166 (<1%) Total Paired PVC's: 4 (<1%) Total runs of Non-sustained Ventricular Tachycardia: 0 Longest Run: 0 beats Fastest Run: 0 bpm ATRIAL ECTOPY TOTAL number of Premature Atrial Contractions: 674 (<1%) Total Paired PAC's: 0 Total runs of Paroxysmal Atrial Tachycardia: 3 Longest Run: 5 beats Fastest Run: 155 bpm Rhythm Interpretation: 1) The predominant rhythm was Sinus. 2) there were 0 patient triggered events 3) Bradycardia 21% Controlled 77% Tachycardia 2% Clinical Significance: Baseline 12-lead ECGs (2023): NSR; intermittent Incomplete RBBB (rate-dependent) 1. Cardiac Rhythm: Sinus: NSR 77%; sinus bradycardia 21%; tachycardia 2% 2. LOW-burden PVCs <1% 4. Non-sustained transient (2s) ventricular run one episode: rate 87 bpm 5. SVT (atrial tachycardia): 3 episodes - Longest duration 3s, 5-beat AT - Fastest 155 bpm 6. Bradycardia: The slowest HR was 47 during sleep (3:13 AM) 7. NO patient's trigger or symptoms were reported 8. NO arrhythmias to account for dizziness /es/ Juju Wilburn MD, FACC, FACP STAFF PHYSICIAN - Cardiology Signed: 04/01/2024 16:18 Receipt Acknowledged By: 04/02/2024 06:42 /es/ Maurilio Schafer Medical Timekeeper Supervisor-EKG 04/02/2024 15:20 /es/ JEANNETTE PEÑA SOFTWARE QUALITY ASSURANCE ANALYST CARDIOLOGY/ELECTROPHYSIOLOGY SOFTWARE QUALITY ASSURANCE ANALYST 04/02/2024 08:28 /es/ SHASHI FLOREZ, MSN, AGNP-C NURSE PRACTITIONER for JUJU ELAM [facility]
--- OUTSIDE RECORDS SUMMARY | 2024-11-02 11:53 | XMS_ITS ---
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 Date/Time Encounter Type Encounter Description Reason Provider Source Nov 14, 2023 02:00 PM OFF/OP CNSLTJ NEW/EST LOW 30 PULMONARY/CHEST ICD-10-CM J44.9 Chronic obstructive pulmonary disease, unspecified ELOINA DEAN IHErnie Encounter Template Text not used by [place] Assessments - Encounter Diagnoses This section includes the primary and secondary diagnoses documented for the Encounter. Date/Time Primary/Secondary Diagnosis Diagnosis Name Provider Source Nov 14, 2023 09:40 PM PRIMARY Chronic obstructive pulmonary disease, unspecified DIANNE,ELOINA [facility] Nov 14, 2023 09:40 PM SECONDARY Dyspnea, unspecified DIANNE,ELOINA Dominic [facility] Plan of Treatment: Future Appointments (+ 6 months) and Future Tests (+/- 45 days) The Plan of Treatment section includes future care activities for the patient from all [place] treatmentfacilities. This section includes future appointments and future orders which are active, pending or scheduled. Future Appointments This section includes appointments that were scheduled to occur 6 months from the date of the Encounter, up to a maximum of 20 appointments. The data comes from all [place] treatment facilities. Appointment Date/Time Appointment Type Appointme nt Facility Name Nov 19, 2023 12:30 PM AMBULATORY - MEDICINE [facility] November 30, 2023 12:58 PM AMBULATORY - MEDICINE [facility] December 11, 2023 08:00 AM AMBULATORY - MEDICINE [facility] December 11, 2023 09:00 AM AMBULATORY - MEDICINE [facility] December 11, 2023 09:15 AM [facility] SUR[facility]ERY [facility] December 13, 2023 09:30 AM [facility] December 17, 2023 12:00 PM AM[facility]ULATORY - NONE [facility] Jan 01, 2024 10:00 AM AMBULATORY - NONE [facility] Jan 03, 2024 10:00 AM AMBULATORY - SURGERY [facility] Jan 14, 2024 08:30 AM AMBULATORY - MEDICINE [facility] Jan 14, 2024 09:30 AM AMBULATORY - MEDICINE [facility] Jan 23, 2024 11:30 AM AMBULATORY - REHAB MEDICIN E [facility] Feb 11, 2024 10:00 AM AMBULATORY - SURGERY [facility] Feb 22, 2024 10:30 AM AMBULATORY - MEDICINE [facility] Feb 27, 2024 08:15 AM AMBULATORY - MEDICINE [facility] Mar 26, 2024 11:00 AM AMBULATORY - NONE [facility] Mar 27, 2024 12:40 PM AMBULATORY - MEDICINE [facility] Apr 10, 2024 10:30 AM AMBULATORY - SURGERY [facility] Apr 22, 2024 10:00 AM AMBULATORY - SURGERY [facility] May 02, 2024 09:00 AM AMBULATORY - NONE [facility] Active, Pending, and Scheduled Orders This section includes a listing of several types of active, pending, and scheduled orders, including clinic medications orders, diagnostic test orders, procedure orders and consult orders; where the start date of the order is 45 days before the date of the Encounter or 45 days after the date of theEncounter. The data comes from all [place] treatment facilities. Test Date/Time Test Type Test Details Facility Name Oct 17, 2023 06:31 PM Laboratory - Chemi stry Order MRSA SURVL NARES DNA NARES WC [facility] Lab Results: +/- 30 days of the encounter This section includes the Chemistry and Hematology Lab Results on record with [place] for the patient. Radiology Reports and Pathology Reports are provided separately, in subsequent sections. Lab Results This section contains the Chemistry/Hematology Results that were resulted 30 days before or 30 daysafter the date of the Encounter. Date/Time Source Result Type Result - Unit Interpretation Reference Range Comment November 30, 2023 03:50 PM [facility] BLOOD GAS PANEL ABG ([facility]) Specimen Type: VENOUS BLOOD Comment: Test Performed by: [id number] Meter #: [id number] Ordering Provider: MARCELLO SEE Report Released Date/Time: November 30, 2023 03:50 PM Reporting Lab: [place] [id number] Performing Lab: [address] [address] GEM PH 7.40 7.31-7.41 GEM PCO2 45 mm[Hg] 41.0-51.0 GEM PO2 43 mm[Hg] 25.0-48.0 GEM SODIUM 133 mmol/L L 136.0-14 5. 0 GEM POTASSIUM 4.0 mmol/L 3.5-5.0 GEM CHLORIDE 100 mmol/L 98.0-107.0 GEM IONIZED CA 1.26 mmol/L 1.09-1.3 GEM HCT 48 38.0-48.0 GEM THB 15.8 g/dL 13.1-16.8 GEM 02HB 73.9 60.0-85.0 GEM COHB 1.8 0.5-2.0 GEM METHB 0.5 0.0-1.9 GEM GLUCOSE 102 mg/dL H 72.0-99.0 GEM LACTATE 1.3 mmol/L 0.9-2.0 GEM SO2 75.7 68.0-77.0 GEM CHCO3 27.9 mmol/L H 20.0-26.0 GEM BASE EXCESS 2.4 mmol/L -2.5-2.5 GEM FIO2 21.0 GEM PT. TEMP 37.0 November 30, 2023 03:45 PM [facility] LACTIC ACID (STL-PB) Specimen Type: PLASMA No comment entered. Ordering Provider: JAMIL ROBINS Report Released Date/Time: November 30, 2023 03:00 PM Reporting Lab: [address] [address] Performing Lab: [address] [address] LACTIC ACID ([facility]L-PB) 1.3 mmol/L 0.5-2.0 November 30, 2023 03:39 PM [facility] COVID-19 DIAGNOSTIC (FLU/RSV)(STL) Specimen Type: NASOPHARYNX Comment: Qualitative real-time PCR and RT-PCR to detect viral RNA. A negative result does not preclude infection with the agent(s) tested and should not be used as the sole basis for treatment or other patient management decisions. If negative, but symptoms persist, consider re-testing. Positive results do not rule out bacterial infection or co-infection with other viruses. All results must be combined with clinical observations, patient history, and epidemiological information for final interpretation. Ordering Provider: JAMIL ROBINS Report Released Date/Time: November 30, 2023 03:00 PM Reporting Lab: [address] [address] Performing Lab: [place] [address] INFLUENZA A Negative Negative INFLUENZA B Negative Negative COVID-19 ([facility]L-PB) Not Detected Not Detected RSV (Cepheid) NEGATIVE Negative November 30, 2023 01:10 PM [facility] COMPREHENSIVE METABOLIC PANEL Specimen Type: PLASMA Comment: Aspartate Transaminase result may show positive bias due to hemolysis. K result canceled due to hemolysis. Specimen moderately hemolyzed. K cancelled due to moderate hemolysis. Called to Dominick Damon RN at 1445 on 11/30/2023 by KIANNA. Ordering Provider: MARCELLO SEE Report Released Date/Time: November 30, 2023 01:08 PM Reporting Lab: [address] [address] Performing Lab: [address] [address] CREATININE 0.99 mg/dL 0.7-1.3 UREA NITROGEN 13.7 mg/dL 9.0-25.0 GLUCOSE 102 mg/dL H 72-99 SODIUM 136 meq/L 136-145 POTASSIUM canc meq/L 3.5-5 CHLORIDE 104 meq/L 98-107 CARBON DIOXIDE 19 meq/L L 22-31 CALCIUM 10.0 mg/dL 8.4-10.4 PROTEIN 7.5 g/dL 6-8.6 ALBUMIN 4.2 g/dL 3.4-5 TOTAL BILIRUBIN 0.6 mg/dL 0.2-1.2 ALKALINE PHOSPHATASE 91 U/L 40-150 AST/SGOT 29 U/L 5-34 ALT/SGPT 31 U/L 8-40 EGFR (CKD-EPI 2020) 79.4 >60 November 30, 2023 01:10 PM [facility] URINALYSIS W/ CX REFLEX (STL-PB) Specimen Type: URINE No comment entered. Ordering Provider: MARCELLO SEE Report Released Date/Time: November 30, 2023 01:08 PM Reporting Lab: [facility] [address] [place] [phone] Performing Lab: [facility] [address] [place] [phone] URINE COLOR Yellow Yellow U.BILIRUBIN Negative mg/dL Negative U.PH 5.5 5.0-8.0 URINE WBC/HPF <1 /[HPF] 0-5 URINE RBC/HPF 1 /[HPF] 0-5 APPEARANCE Clear Clear U.NITRITE Negative mg/dL Negative SQUAMOUS EPITH. <1 /[HPF] 0-5 MUCUS RARE /[LPF] Negative -R are HYALINE CASTS 1 /[LPF] 0-5 URN.GLUCOSE Normal mg/dL Negative URN.PROTEIN 30 mg/dL H Negative -2 0 URN.UROBILINOG EN Normal mg/dL Normal URN.BLOOD Negative mg/dL Negat tanya-T race URN.KETONES Negative mg/dL Neg ative-T race URN.LEUK.EST. Negative mg/dL N egative-T race URN.SPECIFIC GRAVITY 1.034 H 1.005-1.02 9 November 30, 2023 01:10 PM [facility] CBC Specimen Type: BLOOD Comment: Platelet count verified by repeat analysis. No clot found in specimen. No platelet clumping observed in smear. Ordering Provider: MARCELLO SEE Report Released Date/Time: November 30, 2023 01:08 PM Reporting Lab: [facility] [address] [facility] [address] Performing Lab: [address] [address] WBC 8.4 10*3/uL 3.6-11.2 RBC 6.08 10*6/uL H 4.10-5.70 HGB 16.8 g/dL 13.1-16.8 HCT 51.7 H 38.2-48.4 MCV 85.0 fL 80.0-100.0 MCH 27.6 pg 27.0-34.0 MCHC 32.5 g/dL L 33.0-36.0 PLT 234 10*3/uL 150-400 RDW 13.9 11.8-15.1 IMMATURE PLT FRACTION 5.2 1.0-7.0 NRBC% 0 LYMPHOCYTES, AUTO % 23 MONOCYTES, AUTO % 8 NEUTROPHILS, AUTO % 67 EOSINOPHILS, AUTO % 1 BASOPHILS, AUTO % 1 LYMPHOCYTES, ABSOLUTE 1.96 10*3/uL 0.77-4.50 MONOCYTES, ABSOLUTE 0.63 10*3/uL 0.19-0.80 NEUTROPHILS, ABSOLUTE 5.69 10*3/uL 2.10-8.00 EOSINOPHILS, ABSOLUTE 0.07 10*3/uL 0.00-0.60 BASOPHILS, ABSOLUTE 0.04 10*3/uL 0.00-0.20 Nov 19, 2023 12:53 PM [facility] MICRAL/CREAT PROFILE (STL) Specimen Type: URINE No comment entered. Ordering Provider: NATALIO BRIDGES Report Released Date/Time: Oct 25, 2023 08:36 AM Reporting Lab: [facility] [address] [place] [phone] Performing Lab: [address] [address] URINE ALBUMIN (PB-STL) 29.1 mg/L uACR (STL) 9 mg/g 0-29 CREATININE URINE/OTHERS 314.1 mg/dL H 63-166 Nov 19, 2023 12:50 PM [facility] D-DIMER HS (MA-STL-PB) Specimen Type: PLASMA No comment entered. Ordering Provider: JEANNETTE PEÑA Report Released Date/Time: Nov 19, 2023 12:31 PM Reporting Lab: [facility] [address] [place] [phone] Performing Lab: [address] [address] D-DIMER HS (MA-STL-PB) 371 <500 Nov 19, 2023 12:50 PM [facility] TROPONIN I Specimen Type: PLASMA No comment entered. Ordering Provider: MARIANA,JEANNETTE S Report Released Date/Time: Nov 19, 2023 12:31 PM Reporting Lab: [address] [address] Performing Lab: [address] [address] TROPONIN I <0.010 ng/mL 0-0.033 Oct 22, 2023 11:07 AM [facility] GLUCOSE,BLOOD-poct (STL) Specimen Type: BLOOD Comment: Test Performed by: [id number] Meter #: [id number] Ordering Provider: FELIX CURTIS Report Released Date/Time: Oct 22, 2023 11:45 AM Reporting Lab: [address] [address] Performing Lab: [address] [address] GLUCOSE,BLOOD- poct (STL) 104 mg/dL H 72-99 Oct 22, 2023 06:36 AM [facility] GLUCOSE,BLOOD-poct (STL) Specimen Type: BLOOD Comment: Test Performed by: [id number] Meter #: [id number] Ordering Provider: FELIX CURTIS Report Released Date/Time: Oct 22, 2023 07:17 AM Reporting Lab: [place] [address] [facility] [address] Performing Lab: [address] [address] GLUCOSE,BLOOD- poct (STL) 112 mg/dL H 72-99 Oct 21, 2023 08:47 PM [facility] GLUCOSE,BLOOD-poct (STL) Specimen Type: BLOOD Comment: Test Performed by: [id number] Meter #: [id number] Ordering Provider: FELIX CURTIS Report Released Date/Time: Oct 21, 2023 09:51 PM Reporting Lab: [place] [address] [facility] [address] Performing Lab: [address] [address] GLUCOSE,BLOOD- poct (STL) 127 mg/dL H 72-Oct 21, 2023 04:19 PM [facility] GLUCOSE,BLOOD-poct (STL) Specimen Type: BLOOD Comment: Test Performed by: [id number] Meter #: [id number] Ordering Provider: KIRSTENMED Report Released Date/Time: Oct 21, 2023 04:43 PM Reporting Lab: [place] [address] [facility] [address] Performing Lab: [address] [address] GLUCOSE,BLOOD- poct (STL) 117 mg/dL H -Oct 21, 2023 11:25 AM [facility] GLUCOSE,BLOOD-poct (STL) Specimen Type: BLOOD Comment: Test Performed by: [id number] Meter #: [id number] Ordering Provider: KIRSTENMED Report Released Date/Time: Oct 21, 2023 11:51 AM Reporting Lab: [place] [address] [facility] [address] Performing Lab: [place] [address] [facility] [address] GLUCOSE,BLOOD- poct (STL) 123 mg/dL H -Oct 20, 2023 04:08 PM [facility] GLUCOSE,BLOOD-poct (STL) Specimen Type: BLOOD Comment: Test Performed by: [id number] Meter #: [id number] Ordering Provider: KIRSTENMED Report Released Date/Time: Oct 20, 2023 04:25 PM Reporting Lab: [place] [address] [facility] [address] Performing Lab: [place] [address] [facility] [address] GLUCOSE,BLOOD- poct (STL) 137 mg/dL H -Oct 20, 2023 11:12 AM [facility] GLUCOSE,BLOOD-poct (STL) Specimen Type: BLOOD Comment: Test Performed by: [id number] Meter #: [id number] Ordering Provider: KIRSTENMED Report Released Date/Time: Oct 20, 2023 04:25 PM Reporting Lab: [place] [address] [facility] [address] Performing Lab: [place] [address] [facility] [address] GLUCOSE,BLOOD- poct (STL) 134 mg/dL H 72-99 Oct 19, 2023 09:23 PM [facility] GLUCOSE,BLOOD-poct (STL) Specimen Type: BLOOD Comment: Test Performed by: [id number] Meter #: [id number] Ordering Provider: KIRSTENMED Report Released Date/Time: Oct 19, 2023 09:34 PM Reporting Lab: [place] [address] [facility] [address] Performing Lab: [place] [address] [facility] [address] GLUCOSE,BLOOD- poct (STL) 117 mg/dL H 72-99 Oct 19, 2023 03:55 PM [facility] GLUCOSE,BLOOD-poct (STL) Specimen Type: BLOOD Comment: Test Performed by: [id number] Meter #: [id number] Ordering Provider: FELIX CURTIS Report Released Date/Time: Oct 19, 2023 04:23 PM Reporting Lab: [place] [address] [facility] [address] Performing Lab: [place] [address] [facility] [address] GLUCOSE,BLOOD- poct (STL) 144 mg/dL H 72-99 Oct 19, 2023 11:48 AM [facility] GLUCOSE,BLOOD-poct (STL) Specimen Type: BLOOD Comment: Test Performed by: [id number] Meter #: [id number] Ordering Provider: FELIX CURTIS Report Released Date/Time: Oct 19, 2023 12:13 PM Reporting Lab: [place] [address] [facility] [address] Performing Lab: [address] [address] GLUCOSE,BLOOD- poct (STL) 129 mg/dL H 72-99 Oct 19, 2023 07:22 AM [facility] MAGNESIUM Specimen Type: PLASMA Comment: No hemolysis noted. Ordering Provider: ANABEL DORANTES Report Released Date/Time: Oct 18, 2023 03:18 PM Reporting Lab: [address] [address] Performing Lab: [address] [address] MAGNESIUM 2.1 mg/dL 1.6-2.6 Oct 19, 2023 07:22 AM [facility] RENAL PANEL Specimen Type: PLASMA Comment: No hemolysis noted. Ordering Provider: ANABEL DORANTES Report Released Date/Time: Oct 18, 2023 03:18 PM Reporting Lab: [address] [address] Performing Lab: [address] [address] CREATININE 0.91 mg/dL 0.7-1.3 UREA NITROGEN 13.0 mg/dL 9.0-25.0 GLUCOSE 126 mg/dL H 72-99 SODIUM 141 meq/L 136-145 POTASSIUM 3.6 meq/L 3.5-5 CHLORIDE 111 meq/L H 98-107 CARBON DIOXIDE 22 meq/L 22-31 CALCIUM 9.4 mg/dL 8.4-10.4 PHOSPHOROUS 2.5 mg/dL 2.3-4.7 ALBUMIN 3.5 g/dL 3.4-5 EGFR (CKD-EPI 2020) 87.9 >60 Oct 19, 2023 07:22 AM [facility] CBC Specimen Type: BLOOD No comment entered. Ordering Provider: ANABEL DORANTES Report Released Date/Time: Oct 18, 2023 03:18 PM Reporting Lab: [address] [address] Performing Lab: [address] [address] WBC 9.5 10*3/uL 3.6-11.2 RBC 4.78 10*6/uL 4.10-5.70 HGB 13.7 g/dL 13.1-16.8 HCT 40.7 38.2-48.4 MCV 85.1 fL 80.0-100.0 MCH 28.7 pg 27.0-34.0 MCHC 33.7 g/dL 33.0-36.0 PLT 230 10*3/uL 150-400 MPV 11.8 fL H 7.5-11.2 RDW 14.1 11.8-15.1 LYMPHOCYTES, AUTO % 21 MONOCYTES, AUTO % 7 NEUTROPHILS, AUTO % 72 EOSINOPHILS, AUTO % 0 BASOPHILS, AUTO % 0 LYMPHOCYTES, ABSOLUTE 1.96 10*3/uL 0.77-4.50 MONOCYTES, ABSOLUTE 0.63 10*3/uL 0.19-0.80 NEUTROPHILS, ABSOLUTE 6.86 10*3/uL 2.10-8.00 EOSINOPHILS, ABSOLUTE 0.02 10*3/uL 0.00-0.60 BASOPHILS, ABSOLUTE 0.02 10*3/uL 0.00-0.20 Oct 19, 2023 04:39 AM [facility] GLUCOSE,BLOOD-poct (STL) Specimen Type: BLOOD Comment: Test Performed by: [id number] Meter #: [id number] Ordering Provider: FELIX CURTIS Report Released Date/Time: Oct 19, 2023 06:38 AM Reporting Lab: [address] [address] Performing Lab: [address] [address] GLUCOSE,BLOOD- poct (STL) 123 mg/dL H 72-99 Oct 18, 2023 09:20 PM [facility] GLUCOSE,BLOOD-poct (STL) Specimen Type: BLOOD Comment: Test Performed by: [id number] Meter #: [id number] Ordering Provider: KIRSTENMED Report Released Date/Time: Oct 19, 2023 12:34 AM Reporting Lab: [address] [address] Performing Lab: [address] [address] GLUCOSE,BLOOD- poct (STL) 116 mg/dL H 72-Oct 18, 2023 04:06 PM [facility] GLUCOSE,BLOOD-poct (STL) Specimen Type: BLOOD Comment: Test Performed by: [id number] Meter #: [id number] Ordering Provider: FELIX CURTIS Report Released Date/Time: Oct 18, 2023 04:41 PM Reporting Lab: [address] [address] Performing Lab: [address] [address] GLUCOSE,BLOOD- poct (STL) 234 mg/dL H -Oct 18, 2023 11:12 AM [facility] GLUCOSE,BLOOD-poct (STL) Specimen Type: BLOOD Comment: Test Performed by: [id number] Meter #: [id number] Ordering Provider: FELIX CURTIS Report Released Date/Time: Oct 18, 2023 11:30 AM Reporting Lab: [address] [address] Performing Lab: [address] [address] GLUCOSE,BLOOD- poct (STL) 171 mg/dL H -Oct 18, 2023 10:47 AM [facility] MRSA SURVL NARES DNA Specimen Type: NARES [...] epidemiological information for final interpretation. Ordering Provider: NATALIO BRIDGES Report Released Date/Time: Oct 17, 2023 09:51 PM Reporting Lab: [address] [address] Performing Lab: [address] [address] MRSA SURVL NARES DNA Negative Negative Oct 18, 2023 06:43 AM [facility] RENAL PANEL Specimen Type: PLASMA Comment: No hemolysis noted. Ordering Provider: ANABEL DORANTES Report Released Date/Time: Oct 17, 2023 06:32 PM Reporting Lab: [address] [address] Performing Lab: [address] [address] CREATININE 0.86 mg/dL 0.7-1.3 UREA NITROGEN 13.2 mg/dL 9.0-25.0 GLUCOSE 160 mg/dL H 72-99 SODIUM 139 meq/L 136-145 POTASSIUM 3.6 meq/L 3.5-5 CHLORIDE 107 meq/L 98-107 CARBON DIOXIDE 22 meq/L 22-31 CALCIUM 9.9 mg/dL 8.4-10.4 PHOSPHOROUS 2.1 mg/dL L 2.3-4.7 ALBUMIN 3.8 g/dL 3.4-5 EGFR (CKD-EPI 2020) 90.3 >60 Oct 18, 2023 06:43 AM [facility] CBC Specimen Type: BLOOD No comment entered. Ordering Provider: ANABEL DORANTES Report Released Date/Time: Oct 17, 2023 06:32 PM Reporting Lab: [address] [address] Performing Lab: [address] [address] WBC 14.2 10*3/uL H 3.6-11.2 RBC 4.85 10*6/uL 4.10-5.70 HGB 13.9 g/dL 13.1-16.8 HCT 41.0 38.2-48.4 MCV 84.5 fL 80.0-100.0 MCH 28.7 pg 27.0-34.0 MCHC 33.9 g/dL 33.0-36.0 PLT 232 10*3/uL 150-400 MPV 11.4 fL H 7.5-11.2 RDW 13.4 11.8-15.1 LYMPHOCYTES, AUTO % 7 MONOCYTES, AUTO % 4 NEUTROPHILS, AUTO % 88 EOSINOPHILS, AUTO % 0 BASOPHILS, AUTO % 0 LYMPHOCYTES, ABSOLUTE 1.02 10*3/uL 0.77-4.50 MONOCYTES, ABSOLUTE 0.60 10*3/uL 0.19-0.80 NEUTROPHILS, ABSOLUTE 12.49 10*3/uL H 2.10-8.00 EOSINOPHILS, ABSOLUTE 0.00 10*3/uL 0.00-0.60 BASOPHILS, ABSOLUTE 0.01 10*3/uL 0.00-0.20 Oct 18, 2023 05:51 AM [facility] GLUCOSE,BLOOD-poct (STL) Specimen Type: BLOOD Comment: Test Performed by: [id number] Meter #: [id number] Ordering Provider: FELIX CURTIS Report Released Date/Time: Oct 18, 2023 07:13 AM Reporting Lab: [address] [address] Performing Lab: [address] [address] GLUCOSE,BLOOD- poct (STL) 158 mg/dL H 72-99 Oct 17, 2023 11:00 PM [facility] LEGIONELLA Ag (Urine only) (STL-PB) Specimen Type: URINE No comment entered. Ordering Provider: ANABEL DORANTES Report Released Date/Time: Oct 17, 2023 06:32 PM Reporting Lab: [address] [address] Performing Lab: [address] [address] LEGIONELLA Ag (Urine only) (STL-PB) NEGATIVE NOT DETECTED Oct 17, 2023 07:53 PM [facility] GLUCOSE,BLOOD-poct (STL) Specimen Type: BLOOD Comment: Test Performed by: [id number] Meter #: [id number] Ordering Provider: FELIX CURTIS Report Released Date/Time: Oct 18, 2023 07:39 AM Reporting Lab: [place] [address] [facility] [address] Performing Lab: [facility] [address] [facility] [address] GLUCOSE,BLOOD- poct (STL) 212 mg/dL H 72-99 Oct 17, 2023 02:00 PM [facility] URINALYSIS (STL-PB) Specimen Type: URINE No comment entered. Ordering Provider: CRISTELA HAMPTON Report Released Date/Time: Oct 17, 2023 09:09 AM Reporting Lab: [facility] [address] [facility] [place] [address] Performing Lab: [place] [address] [facility] [place] [address] URINE COLOR Colorless Yellow U.BILIRUBIN Negative mg/dL Negative U.PH 6.0 5.0-8.0 APPEARANCE Clear Clear U.NITRITE Negative mg/dL Negative URN.GLUCOSE Normal mg/dL Negative URN.PROTEIN Negative mg/dL Neg ative-2 0 URN.UROBILINOG EN Normal mg/dL Normal URN.BLOOD Negative mg/dL Negat tanya-T race URN.KETONES Negative mg/dL Neg ative-T race URN.LEUK.EST. Negative mg/dL N egative-T race URN.SPECIFIC GRAVITY 1.031 H 1.005-1.02 9 Oct 17, 2023 09:10 AM [facility] COVID-19 DIAGNOSTIC (FLU/RSV)(STL) Specimen Type: NASOPHARYNX Comment: Qualitative real-time PCR and RT-PCR to detect viral RNA. A negative result does not preclude infection with the agent(s) tested and should not be used as the sole basis for treatment or other patient management decisions. If negative, but symptoms persist, consider re-testing. Positive results do not rule out bacterial infection or co-infection with other viruses. All results must be combined with clinical observations, patient history, and epidemiological information for final interpretation. Ordering Provider: CRISTELA HAMPTON Report Released Date/Time: Oct 17, 2023 09:09 AM Reporting Lab: [facility] [address] [facility] [address] Performing Lab: [place] [address] [facility] [address] INFLUENZA A Negative Negative INFLUENZA B Negative Negative COVID-19 (STL-PB) Not Detected Not Detected RSV (Cepheid) NEGATIVE Negative Oct 17, 2023 09:10 AM [facility] TROPONIN I Specimen Type: PLASMA No comment entered. Ordering Provider: CRISTELA HAMPTON Report Released Date/Time: Oct 17, 2023 10:16 AM Reporting Lab: [address] [address] Performing Lab: [address] [address] TROPONIN I <0.010 ng/mL 0-0.033 Oct 17, 2023 09:10 AM [facility] BRAIN NATRIURETIC PEPTIDE Specimen Type: PLASMA No comment entered. Ordering Provider: CRISTELA HAMPTON Report Released Date/Time: Oct 17, 2023 10:16 AM Reporting Lab: [address] [address] Performing Lab: [address] [address] BRAIN NATRIURETIC PEPTIDE 19.4 pg/mL 0-100 Oct 17, 2023 09:10 AM [facility] COMPREHENSIVE METABOLIC PANEL Specimen Type: PLASMA Comment: K result may show a positive bias due to hemolysis. Specimen slightly hemolyzed. Ordering Provider: CRISTELA HAMPTON Report Released Date/Time: Oct 17, 2023 09:09 AM Reporting Lab: [address] [address] Performing Lab: [address] [address] CREATININE 0.89 mg/dL 0.7-1.3 UREA NITROGEN 11.5 mg/dL 9.0-25.0 GLUCOSE 116 mg/dL H 72-99 SODIUM 136 meq/L 136-145 POTASSIUM 4.2 meq/L 3.5-5 CHLORIDE 102 meq/L 98-107 CARBON DIOXIDE 25 meq/L 22-31 CALCIUM 9.7 mg/dL 8.4-10.4 PROTEIN 6.9 g/dL 6-8.6 ALBUMIN 4.0 g/dL 3.4-5 TOTAL BILIRUBIN 0.7 mg/dL 0.2-1.2 ALKALINE PHOSPHATASE 95 U/L 40-150 AST/SGOT 20 U/L 5-34 ALT/SGPT 20 U/L 8-40 EGFR (CKD-EPI 2020) 89.4 >60 Oct 17, 2023 09:10 AM [facility] CBC Specimen Type: BLOOD No comment entered. Ordering Provider: CRISTELA HAMPTON Report Released Date/Time: Oct 17, 2023 09:09 AM Reporting Lab: [facility] [address] [facility] [address] Performing Lab: [facility] [address] [facility] [address] WBC 19.3 10*3/uL H 3.6-11.2 RBC 5.35 10*6/uL 4.10-5.70 HGB 15.3 g/dL 13.1-16.8 HCT 45.7 38.2-48.4 MCV 85.4 fL 80.0-100.0 MCH 28.6 pg 27.0-34.0 MCHC 33.5 g/dL 33.0-36.0 PLT 263 10*3/uL 150-400 MPV 11.8 fL H 7.5-11.2 RDW 13.5 11.8-15.1 NEUTROPHILS 86.1 MONOCYTES 4.4 PAPPENHEIMER BODIES 0 LYMPHOCYTES 5.2 ATYPICAL LYMPHOCYTES 4.3 PLT EST-CV ADEQUATE ADEQUATE NORMRBC Yes MONO#-MDIFF 0.85 10*3/uL H 0.19-0.80 LYMPH#-MDIFF 1.83 10*3/uL 0.77-4.50 NEUT#-MDIFF 16.62 10*3/uL H 2.10-8.00 Vital Signs: All taken on the encounter date This section contains inpatient and outpatient Vital Signs collected on the date of the Encounter. Date/Time Temperature Pulse Blood Pressure Respiratory Rate SP02 Pain Height Weight Body Mass Index Source Nov 14, 2023 09:07 AM 98.1 79 145/75 20 97 0 216.1 28 [facility] Social History: Smoking Status (Most current) and Tobacco Use (All prior to encounter date) This section includes the most current, and the historical, smoking and tobacco- related health factors from the [place] facility where the Encounter took place. Current Smoking Status This section includes the most current smoking, or tobacco-related health factor, from the [place] facility where the Encounter took place. Date/Time Current Smoking Status Comment Tristan bostony Oct 17, 2023 04:53 PM ORYX ADMIT TOBACCO SCREEN NO [facility] Tobacco Use History This section includes a history of the smoking, or tobacco-related health factors, that were collected on or before the date of the Encounter. The data comes from the [place] facility where the Encounter took place. Date/Time Smoking Status/Tobacco Use Comment Alejandro acmahesh Oct 17, 2023 03:00 PM ORYX ADMIT TOBACCO SCREEN NO [facility] Dec 31, 2021 03:07 PM ORYX ADMIT TOBACCO SCREEN NO [facility] Apr 06, 2017 11:33 PM QUIT TOBACCO >7 YEARS AGO [facility] Mar 21, 2017 04:29 AM QUIT TOBACCO >7 YEARS AGO [facility] Jan 20, 2014 09:56 AM QUIT TOBACCO >7 YEARS AGO [facility] Jan 02, 2013 01:23 PM QUIT TOBACCO >7 YEARS AGO [facility] May 25, 2010 01:35 PM LIFETIME NON-USER OF TOBACCO [facility] Aug 17, 2009 01:04 PM QUIT TOBACCO >12 M O & <7 YRS AGO [facility] Sep 17, 2008 01:34 PM QUIT TOBACCO >12 M O & <7 YRS AGO [facility] Sep 20, 2006 10:57 AM QUIT TOBACCO >12 M O & <7 YRS AGO [facility] Jun 05, 2006 10:49 AM CURRENT NON-TOBACC O USER-HX OF USE [facility] Jun 05, 2006 10:49 AM TOBACCO TERMINATION STAGE [facility] Jul 14, 2005 11:00 AM CURRENT NON-TOBACC O USER-HX OF USE [facility] Jul 14, 2005 11:00 AM TOBACCO TERMINATION STAGE [facility] Oct 23, 2004 04:56 PM CURRENT NON-TOBACC O USER-HX OF USE [facility] Oct 23, 2004 04:56 PM TOBACCO ACTION STAGE [facility] Apr 07, 2004 10:58 AM CURRENT NON-TOBACC O USER-HX OF USE [facility] Apr 07, 2004 10:58 AM TOBACCO MAINTENANCE STAGE [facility] December 18, 2002 11:17 AM CURRENT TOBACCO USER [facility] December 18, 2002 11:17 AM TOBACCO USE [facility] Apr 07, 2002 02:25 PM CURRENT NON-TOBACC O USER-RECENTLY QUIT quit 3 mo ago [facility] Apr 07, 2002 02:25 PM TOBACCO USE quit 3 mo ago [facility] Nov 19, 2001 10:50 AM CURRENT TOBACCO USER [facility] Jul 16, 2001 08:35 AM CURRENT TOBACCO USER [facility] Jun 18, 2001 08:31 AM CURRENT TOBACCO USER [facility] Jun 18, 2001 08:31 AM TOBACCO USE [facility] Advance Directives: All historical and current Section Date Range: From patient's date of to the date document was created. This section includes ALL of a patient's completed or amended [place] Advance and Rescinded Directives. The entries below indicate that a directive exists for the patient, but an actual copy is not included with this document. The data comes from all [facility]. Date Advance Directives Provider Source Feb 18, 2018 ADVANCE DIRECTIVE DISCUSSION EMMETT CAMILO [facility] Radiology Reports: +/- 30 days of the [...] the Encounter. The data comes from all [facility] facilities. Date/Time Radiology Report Provider Source November 30, 2023 03:[address] ABDOMEN AND PEL VIS W/CONTRAST: MAURILIO DUQUE [id number] -1950 M Exm Date: NOVEMBER 30, 2023@15:53 Req Phys: JENNIFER PALOMINO Zully Loc: [facility]Y [facility]PT 2ND SHIFT (R Img Loc: [facility]-CT IMAGING [facility] Service: Unknown [facility], [address] [place] [address] (Case [id number] COMPLETE) CT ABDOMEN AND PELVIS W/CONTRAST (CT Detailed) CPT:24595 Contrast Media : Non-ionic Iodinated Reason for Study: groin pain x 5 days and vomiting, hx of multiple hernia repairs Clinical History: Responsible Attending: Sundeep Attending Contact Number: [phone] Resident Contact Number: pt with multiple hernia repairs presents with groin pain x5 days and vomiting Allergies listed in CPRS chart: LISINOPRIL, FENTANYL, COCONUTS Creatinine:CREATININE 0.99 mg/dL 11/30/2023 13:10 /eGFR: STL EGFR (within one year). CREATININE 0.99 mg/dL (11/30/23 13:10) Wt: 219.8 lb [99.70 kg] (11/19/2023 11:49) History of: Renal failure, chronic or acute renal disease: NO Report Status: Verified Date Reported: NOVEMBER 30, 2023 Date Verified: NOVEMBER 30, 2023 Corn Grower E-Sig:/ES/MARYLOU JESSICA MD Report: Case: [id number] abdomen [address] pelvis[address] CT axial images abdomen and pelvis is obtained with IV contrast. Sagittal and coronal reconstructions are performed. Comparison: CT abdomen pelvis with IV contrast dated 08/14/2023, 03/15/2023 and 02/14/2023 Findings: Lung bases are clear. Liver demonstrates no focal hepatic masses or intrahepatic biliary duct dilatation. Gallbladder is absent status post cholecystectomy. Adrenal glands are within normal limits. Spleen is within normal limits. Pancreas shows severe fatty infiltration. Both kidneys opacify symmetrically. Small hiatal hernia. Bowel loops demonstrate normal caliber. Moderate diverticulosis most marked in the sigmoid colon. No evidence of acute diverticulitis or intestinal obstruction. No retroperitoneal lymphadenopathy is present. The suprarenal abdominal aorta measures 2.4 cm in the transverse diameter with no evidence of abdominal aortic aneurysm. Atherosclerotic calcific plaques are present in the abdominal aorta. The images through the pelvis demonstrate normal configuration of the urinary bladder. Prostate is enlarged measuring 5.6 x 4.6 cm. Orphaned reservoir adjacent to the urinary bladder dome. Interval resolution of the right inguinal region 2 cm cyst. Right-inguinal hernia with omental fat without bowel protrusion. Reidentified soft tissue stranding in the right groin region. Impression: No acute process in the abdomen and pelvis. Primary Interpreting Staff: MARYLOU JESSICA MD, STAFF RADIOLOGIST (Corn Grower) /MARYLOU CABRERA [facility] November 30, 2023 03:[address] 3D RENDERING W INDEPENDENT WORKSTATION POSTPROCESSING: MAURILIO DUQUE [id number] -1950 M Exm Date: NOVEMBER 30, 2023@15:53 Req Phys: GEORGETTEJENNIFER Pat Loc: [facility]PT 2ND SHIFT (R Img Loc: [facility]CT IMAGING [facility] Service: [facility] [address] [place] [address] (Case [id number] COMPLETE) CT 3D RENDERING W INDEPENDENT WOR(CT Detailed) CPT:04959 Reason for Study: GROIN PAIN Clinical History: Responsible Attending: Sundeep Attending Contact Number: [phone] Resident Contact Number: pt with multiple hernia repairs presents with groin pain x5 days and vomiting Allergies listed in CPRS chart: LISINOPRIL, FENTANYL, COCONUTS Creatinine:CREATININE 0.99 mg/dL 11/30/2023 13:10 /eGFR: STL EGFR (within one year). CREATININE 0.99 mg/dL (11/30/23 13:10) Wt: 219.8 lb [99.70 kg] (11/19/2023 11:49) History of: Renal failure, chronic or acute renal disease: NO Report Status: Verified Date Reported: DECEMBER 05, 2023 Date Verified: DECEMBER 05, 2023 Corn Grower E-Sig:/ES/MARYLOU JESSICA MD Report: Case: [id number] CT abdomen and pelvis[address] CT axial images abdomen and pelvis is obtained with IV contrast. Sagittal and coronal reconstructions are performed. Comparison: CT abdomen pelvis with IV contrast dated 08/14/2023, 03/15/2023 and 02/14/2023 Findings: Lung bases are clear. Liver demonstrates no focal hepatic masses or intrahepatic biliary duct dilatation. Gallbladder is absent status post cholecystectomy. Adrenal glands are within normal limits. Spleen is within normal limits. Pancreas shows severe fatty infiltration. Both kidneys opacify symmetrically. Small hiatal hernia. Bowel loops demonstrate normal caliber. Moderate diverticulosis most marked in the sigmoid colon. No evidence of acute diverticulitis or intestinal obstruction. No retroperitoneal lymphadenopathy is present. The suprarenal abdominal aorta measures 2.4 cm in the transverse diameter with no evidence of abdominal aortic aneurysm. Atherosclerotic calcific plaques are present in the abdominal aorta. The images through the pelvis demonstrate normal configuration of the urinary bladder. Prostate is enlarged measuring 5.6 x 4.6 cm. Orphaned reservoir adjacent to the urinary bladder dome. Interval resolution of the right inguinal region 2 cm cyst. Right-inguinal hernia with omental fat without bowel protrusion. Reidentified soft tissue stranding in the right groin region. Impression: No acute process in the abdomen and pelvis. Primary Interpreting Staff: MARYLOU JESSICA MD, STAFF RADIOLOGIST (Corn Grower) /MARYLOU CABRERA [facility] Oct 17, 2023 11:01 AM CTA PE CHEST: MAURILIO DUUQE [id number] -1950 M Ex Date: OCT 17, 2023@11:01 Req Phys: CRISTELA HAMPTON Loc: [facility] 2ND SHIFT (R Img Loc: [facility] IMAGING [facility] Service: Unknown (Case [id number] COMPLETE) CTA PE CHEST (CT Detailed) CPT:99542 Contrast Media : unspecified contrast media Reason for Study: 2 month hx sob, cough Clinical History: Responsible Attending: Natty Attending Contact Number: [phone] Resident Contact Number: Allergies listed in CPRS chart: LISINOPRIL, FENTANYL, COCONUTS Creatinine: CREATININE 0.89 mg/dL 10/17/2023 09:10 /eGFR: STL EGFR (within one year). CREATININE 0.89 mg/dL (10/17/23 09:10) Wt: 220.4 lb [99.97 kg] (09/27/2023 10:37) History of: Renal failure, chronic or acute renal disease: NO Report Status: Verified Date Reported: OCT 17, 2023 Date Verified: OCT 17, 2023 Corn Grower E-Sig:/ES/LISA PINZON Report: INDICATION: 2 month hx sob, cough COMPARISON: 06/18/2017. Radiographs performed on 10/17/2023. TECHNIQUE: CT chest with intravenous contrast using pulmonary embolism protocol. FINDINGS: Lung, Airway, Pleura: A groundglass consolidation is seen posteriorly in the right upper lobe. Underlying emphysema is redemonstrated. Scattered areas of pleural parenchymal scarring. Dependent atelectasis. No pneumothorax. No pleural effusion. No new or enlarging suspicious pulmonary nodule or mass. Upper neck and axilla: No suspicious thyroid lesion. Heart: Normal size. No pericardial effusion. No right heart straining. Upper abdomen: No suspicious mass or lymphadenopathy. Vasculature: There is suboptimal opacification of the pulmonary arteries phase of the contrast bolus. No definite filling defect in the central or lobar pulmonary arteries. Mediastinum and noah: No new or enlarging suspicious lymphadenopathy. Musculoskeletal structures: No suspicious osseous lesion. Impression: 1. Groundglass consolidation in the posterior segment of the right upper lobe represents sequela of infection or inflammation. Appropriate clinical correlation is recommended. 2. There is suboptimal evaluation of the pulmonary arteries due to the timing of the contrast bolus. Within this limitation, there is no definite acute pulmonary embolism in the main or lobar pulmonary arteries. Primary Interpreting Staff: LISA PINZON, RADIOLOGIST (Corn Grower) /LISA TURCIOS [facility] Oct 17, 2023 09:11 AM CHEST PORTABLE: MAURILIO DUQUE [id number] -1950 M Exm Date: OCT 17, 2023@09:11 Req Phys: CRISTELA HAMPTON Loc: [facility] 2ND SHIFT (R Img Loc: [facility]-MAIN RADIOLOGY SUITE Service: Unknown (Case [id number] COMPLETE) CHEST PORTABLE (RAD Detailed) CPT:85337 Proc Modifiers : Portable Reason for Study: SOB Clinical History: Report Status: Verified Date Reported: OCT 17, 2023 Date Verified: OCT 17, 2023 Corn Grower E-Sig:/ES/LISA PINZON Report: INDICATION: SOB COMPARISON:07/25/2023 TECHNIQUE: Chest portable Impression: Evaluation is limited by overlying monitoring leads and wires. There is persistent elevation of the left hemidiaphragm. Left greater than right bibasal atelectasis. No pneumothorax. No large pleural effusion. No focal consolidation. Normal heart size. Unchanged mediastinal contours. Primary Interpreting Staff: LISA PINZON, RADIOLOGIST (Corn Grower) /LAVINIA PINZON,LISA [facility] Pathology Reports: +/- 30 days of [...] the Encounter. The data comes from all [place] treatment facilities. Date/Time Pathology Report Provider Source Oct 19, 2023 01:53 PM LR MICROBIOLOGY RE PORT: Accession [UID]: [id number] [[id number]] Received: Oct 19, 2023@14:14 Collection sample: SPUTUM Collection date: Oct 19, 2023 13:53 Provider: ANABEL DORANTES Test(s) ordered: C&S RESPIRATORY CULTURES (STL-PB) completed: Oct 21, 2023 10:17 * BACTERIOLOGY FINAL REPORT => Oct 21, 2023 10:19 TECH CODE: [id number] GRAM STAIN: MODERATE WBC, MODERATE NORMAL RESPIRATORY KENAN INCLUDING MODERATE GRAM POSITIVE COCCI IN CLUSTERS, FEW GRAM NEGATIVE RODS FEW GRAM POSITIVE COCCI IN PAIRS AND CHAINS, RARE GRAM POSITIVE RODS 10/19/2023 KAJoana Bacteriology Remark(s): culture shows heavy growth normal upper respiratory kenan at 24 hours. 10/20/23 av HEAVY GROWTH of NORMAL UPPER RESPIRATORY KENAN =--=--=--=--=--=--=--=--=--= --=--=--=--=--=--=--=--=--=- -=--=--=--=--=--=--=-- Performing Laboratory: Bacteriology Report Performed By: [facility] [address] [place] [address] CLIA# [id number] [address] [facility] [address] [place] [address] [facility] Encounter Notes: All associated encounter notes This section contains the clinical notes associated to the Encounter. Date/Time Encounter Note(s) Provider Source Nov 14, 2023 03:14 PM PULMONARY CONSULT: LOCAL TITLE: PULMONARY OUTPATIENT CONSULT NOTE ST STANDARD TITLE: PULMONARY CONSULT DATE OF NOTE: NOV 14, 2023@15:14 ENTRY DATE: NOV 14, 2023@15:15:05 AUTHOR: ELOINA DEAN COSIGNER: URGENCY: STATUS: COMPLETED PULMONARY CONSULT CLINIC NOTE 73 year old MALE here for Pulmonary Clinic new patient visit on 11/14/23 14:00. CHIEF COMPLAINT/REASON FOR CONSULT REQUEST: - COPD, progressive exertional dyspnea HISTORY: Pt is 73yr male with hx of DM2, HTN, HLD, GERD, COPD, past tobacco use, chronic pain who presents for progressive exertional dyspnea with three ED visits between Jun thru September for COPD exacerbations followed by an admission October 16 for a COPD exacerbation and PNA. Pt initially dx with mild COPD in early , at that time he had a mild restrictive pattern on PFTs with positive bronchodilator response. Sxs were reportedly well controlled over the last 2 decades until he developed his third COVID infection in Mar 2023 and has not been able to return to his baseline. He was previously on combivent and prn abuterol, Breztri added in Mar 2023. States that he previously peformed all his routine activites without any limitations and walked 2 miles a day for exercise. Since his last bout of COVID he has has been tx'd multiple times with antibxs and steroids for COPD exacerbations without significant improvement between courses followed by his recent hopsitalzation in late September when he was again tx'd for a COPD exaerbation, as well as, community acquired PNA. During that admission he had a CTA PE which showed emphysematous changes and ground glass consolidation in his RUL. Today pt states that he gets dyspneic with minimal exertion including walking from his bedroom to bathroom and all other ADLs. He is taking Breztri as directed. States that he is using albuterol nebs 4x/d, previously only used 1x/d. He also has a combivent inhaler which he uses twice a day in morning and evening. He denies any current fever, chills, HAs, bodyaches, nasal congestion/drainage. Denies cough, sputum, hemoptysis. Denies chest tightness or wheezing. States that he does have intermittent episodes of mid anterior chest pain, occuring at rest and not associated with his exertional dyspnea. He also has occasional heartburn and is currently on a PPI. No orthopnea, PND or LE edema. He is scheduled to see cardiology this week. PAST MEDICAL HISTORY: 1) Benign essential hypertension (SNOMED CT 5774086) 2) Left trigeminal neuralgia (SNOMED [id number]) 3) GERD - Gastro-esophageal reflux disease (SNOMED CT 653018497) 4) Chronic obstructive lung disease (SNOMED CT 21882332) 5) LBP - Low back pain (SNOMED CT 961325085) 6) Knee pain (SNOMED CT 07773099) 7) Chest pain 8) Hip joint pain 9) Candidiasis of the esophagus 10) Parotitis 11) Cervicalgia 12) Long-term current use of opiate analgesic drug 13) Diabetes Mellitus Type 2 ([facility] [id number]) 14) Inguinal hernia 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 21) Exposure to potentially hazardous substance ACTIVE OUTPATIENT MEDICATIONS: Active Outpatient Medications (including Supplies): Active Outpatient Medications Status ========= 1) ALBUTEROL 90MCG (CFC-F) 200D ORAL INHL INHALE 1 PUFF ACTIVE ORAL INHALATION FOUR TIMES A DAY NEEDED SHAKE WELL. RINSE MOUTHPIECE FREQUENTLY TO PREVENT CLOGGING. 2) ALBUTEROL SO4 0.083% INHL 3ML INHALE 1 VIAL ACTIVE (2.5MG/3ML) BY NEBULIZATION EVERY 6 HOURS DIRECTED 3) AMLODIPINE BESYLATE 10MG TAB TAKE ONE TABLET BY MOUTH ACTIVE ONCE A DAY FOR HEART/BLOOD PRESSURE 4) ASPIRIN 81MG EC TAB TAKE TWO TABLETS BY MOUTH ONCE A ACTIVE DAY FOR HEART OR CIRCULATION. TAKE WITH FOOD. 5) BREZTRI 160/9/4.8MCG/ACT 120D ORAL INHL INHALE 2 ACTIVE PUFFS INHALATION TWICE A DAY DIRECTED FOR COPD (CLEAN INHALER FOLLOWED BY 2 PRIMING PUFFS ONCE WEEKLY) 6) CARBOXYMETHYLCELLULOSE NA 0.5% OPH SOLN INSTILL 1 ACTIVE DROP IN BOTH EYES FOUR TIMES A DAY NEEDED FOR DRY EYE(S) 7) CHOLECALCIF 50MCG (D3-2,000UNIT) TAB TAKE TWO TABLETS ACTIVE BY MOUTH ONCE A DAY FOR VITAMIN D DEFICIENCY. 8) CICLOPIROX 8% TOP SOLN APPLY LIGHTLY TO AFFECTED ACTIVE AREA(S) ONCE A DAY (THIN COAT TO THICK NAILS - FILE DOWN AFTER 1 WEEK) (EXTERNAL USE ONLY) 9) DICLOFENAC NA 1% TOP GEL APPLY 2 GM TO AFFECTED ACTIVE AREA(S) FOUR TIMES A DAY FOR OSTEOARTHRITIS DO NOT EXCEED MORE THAN 16 GRAMS DAILY TO ANY LOWER EXTREMITY JOINT. NOT MORE THAN 8 GRAMS DAILY TO ANY UPPER EXTREMITY JOINT. MAX 32GM/DAY OVER ALL JOINTS. (MEASURE DOSE WITH RULER ATTACHED INSIDE BOX) 10) HYDROCODONE 10/ACETAMINOPHEN 325MG TAB TAKE 1 TABLET ACTIVE BY MOUTH EVERY 6 HOURS NEEDED FOR PAIN CAUTION: DO NOT EXCEED 4000MG PER DAY ACETAMINOPHEN (APAP) FROM ALL MEDS. DO NOT TAKE WITH OXYCODONE 11) METFORMIN HCL 1000MG TAB TAKE ONE TABLET BY MOUTH ACTIVE TWICE A DAY WITH MEALS FOR BLOOD SUGAR CONTROL. AVOID ALCOHOL. DISCONTINUE BEFORE GETTING XRAY DYE. 12) PANTOPRAZOLE NA 40MG EC TAB TAKE ONE TABLET BY MOUTH ACTIVE TWO TIMES A DAY BEFORE MEALS TO LOWER STOMACH ACID - TAKE 30 MINUTES BEFORE MEAL(S) 13) PREGABALIN 200MG ORAL CAP TAKE ONE CAPSULE BY MOUTH ACTIVE THREE TIMES A DAY FOR NERVE PAIN 14) PSYLLIUM ORAL PWD MIX AND DRINK 1 TEASPOONFUL BY ACTIVE MOUTH ONCE A DAY FOR FIBER SUPPLEMENTATION MIX IN GLASS OF WATER/JUICE. FLAVOR SUBSTITUTIONS MAY/WILL OCCUR AND SPECIFIC VARIETIES WILL NOT BE PROVIDED. 15) TOPIRAMATE 50MG TAB TAKE ONE TABLET BY MOUTH TWICE A ACTIVE DAY FOR SEIZURES OR MIGRAINE PROPHYLAXIS 16) VALSARTAN 320MG TAB TAKE ONE TABLET BY MOUTH ONCE A ACTIVE DAY TO LOWER BLOOD PRESSURE ALLERGIES: - LISINOPRIL, FENTANYL, COCONUTS FAMILY HISTORY: - No hx of asthma, COPD, lung cancer. SOCIAL HISTORY: - , but lives with ex- and granddaughter. 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 Hx of tobacco use, 43 jesse-yr, quit approx 22yrs. Denies marijauna, other drug use. No ETOH. REVIEW OF SYSTEMS: - 10 point ROS performed and is negative except as outlined below and in HPI. PHYSICAL EXAMINATION: Vital Signs: Temperature: 98.1 F [36.7 C] (11/14/2023 09:07) Blood Pressure: 145/75 (11/14/2023 09:07) Pulse: 79 (11/14/2023 09:07) Respirations: 20 (11/14/2023 09:07) Pain: 0 (11/14/2023 09:07) Patient Height:74 in [188.0 cm] (09/27/2023 10:37) Patient Weight:216.1 lb [98.02 kg] (11/14/2023 09:07) BMI: 27.8 O2 saturation: 97% (11/14/2023 09:07) GENERAL: Well-appearing, no acute distress. HEENT: Neck supple, no LAD. Conjunctiva clear. TMs not visualzed 2/2 cerumen, Nares patent, oropharyx clear, MM moist. RESP: Nonlabored, speaks in full sentences. BS with good airflow, CTA. Cardiovascular: RRR. No murmurs. Extremities: No edema. Skin: No rashes to exposured area. Neurologic: Alert, pleasant, appropriate, ambulates with steady gait. SELECTED RESULTS REVIEWED: - PFTs today suggestive for mild restrictive pattern, also has 300cc improvement from FVC to SVC, no BDE, mild diffusion defect. FEV1 54% FVC 56% FEV1/FVC 104%, TLC 73%, RV 100%, DLCO 59%. - CTA PE 09/2023 with emphysematous changes, RUL GGO likely representing infection or inflammation, no PEs. IMPRESSION/RECOMMENDATIONS: #COPD: #Exertional Dyspnea: #Hx of COVID infection Mar 2023 without return to baseline resp status: #Tx'd for multiple COPD exacerbations from Jun to September: #Recent PNA, GG consolidation on CT 09/2023, hospitalized 5 days: #Deconditioning following following COVID and PNA and several COPD exacerbations: - Plan for CARP, has cardiopulmonary rehab consult today to discuss program. - Continue Breztri for now, but may try to go down to LAMA/LABA once more stable. - Combivent d/c today, script provided for albuterol MDI. - Will need follow up CT to evaluate for resolution of RUL consoldation, ordered placed by Dr. Stallings. - Return to pulm clinic in 3 to 4 months. #Hx of tobacco use, quit 22 yrs ago. #Immunizations: - Flu 04/2023, reports taht he received COVID fall 2022 at [facility]. - Continue Bretri for now, but may try to decrease t /es/ EOLINA DEAN PHYSICIAN MANHOLE BUILDER Signed: 11/14/2023 21:40 Receipt Acknowledged By: 11/16/2023 10:43 /es/ JENNIFER STALLINGS MD, MPH Interventional Pulmonology ELOINA DEAN [facility] Nov 14, 2023 01:47 PM CARDIOPULMONARY REHABILITATION CONSULT: LOCAL TITLE: CARDIOPULMONARY REHAB CONSULT [facility] STANDARD TITLE: CARDIOPULMONARY REHABILITATION CONSULT DATE OF NOTE: NOV 14, 2023@13:47 ENTRY DATE: NOV 14, 2023@13:47:34 AUTHOR: KATE BEACH COSIGNER: URGENCY: STATUS: COMPLETED Mr. Duque had an appointment in the pulmonary consult clinic today and see that note for full details. Briefly, he is a 73-year-old man with a history of COPD (pulmonary function tests performed today show a mild restrictive pattern with no evidence of obstruction although prior CT scans show evidence of emphysema) with multiple admissions for increasing dyspnea on exertion as well as a recurrent episode of COVID in March 2023. He states that he has not yet recovered his previous level of activity since then and is interested in improving his exercise tolerance. Other medical problems include diabetes and chronic low back pain. Active Outpatient Medications (including Supplies): Active Outpatient Medications Status ========= 1) ALBUTEROL 90MCG (CFC-F) 200D ORAL INHL INHALE 1 PUFF ACTIVE ORAL INHALATION FOUR TIMES A DAY NEEDED SHAKE WELL. RINSE MOUTHPIECE FREQUENTLY TO PREVENT CLOGGING. 2) ALBUTEROL SO4 0.083% INHL 3ML INHALE 1 VIAL ACTIVE (2.5MG/3ML) BY NEBULIZATION EVERY 6 HOURS DIRECTED 3) AMLODIPINE BESYLATE 10MG TAB TAKE ONE TABLET BY MOUTH ACTIVE ONCE A DAY FOR HEART/BLOOD PRESSURE 4) ASPIRIN 81MG EC TAB TAKE TWO TABLETS BY MOUTH ONCE A ACTIVE DAY FOR HEART OR CIRCULATION. TAKE WITH FOOD. 5) BREZTRI 160/9/4.8MCG/ACT 120D ORAL INHL INHALE 2 ACTIVE PUFFS INHALATION TWICE A DAY DIRECTED FOR COPD (CLEAN INHALER FOLLOWED BY 2 PRIMING PUFFS ONCE WEEKLY) 6) CARBOXYMETHYLCELLULOSE NA 0.5% OPH SOLN INSTILL 1 ACTIVE DROP IN BOTH EYES FOUR TIMES A DAY NEEDED FOR DRY EYE(S) 7) CHOLECALCIF 50MCG (D3-2,000UNIT) TAB TAKE TWO TABLETS ACTIVE BY MOUTH ONCE A DAY FOR VITAMIN D DEFICIENCY. 8) CICLOPIROX 8% TOP SOLN APPLY LIGHTLY TO AFFECTED ACTIVE AREA(S) ONCE A DAY (THIN COAT TO THICK NAILS - FILE DOWN AFTER 1 WEEK) (EXTERNAL USE ONLY) 9) DICLOFENAC NA 1% TOP GEL APPLY 2 GM TO AFFECTED ACTIVE AREA(S) FOUR TIMES A DAY FOR OSTEOARTHRITIS DO NOT EXCEED MORE THAN 16 GRAMS DAILY TO ANY LOWER EXTREMITY JOINT. NOT MORE THAN 8 GRAMS DAILY TO ANY UPPER EXTREMITY JOINT. MAX 32GM/DAY OVER ALL JOINTS. (MEASURE DOSE WITH RULER ATTACHED INSIDE BOX) 10) HYDROCODONE 10/ACETAMINOPHEN 325MG TAB TAKE 1 TABLET ACTIVE BY MOUTH EVERY 6 HOURS NEEDED FOR PAIN CAUTION: DO NOT EXCEED 4000MG PER DAY ACETAMINOPHEN (APAP) FROM ALL MEDS. DO NOT TAKE WITH OXYCODONE 11) METFORMIN HCL 1000MG TAB TAKE ONE TABLET BY MOUTH ACTIVE TWICE A DAY WITH MEALS FOR BLOOD SUGAR CONTROL. AVOID ALCOHOL. DISCONTINUE BEFORE GETTING XRAY DYE. 12) PANTOPRAZOLE NA 40MG EC TAB TAKE ONE TABLET BY MOUTH ACTIVE TWO TIMES A DAY BEFORE MEALS TO LOWER STOMACH ACID - TAKE 30 MINUTES BEFORE MEAL(S) 13) PREGABALIN 200MG ORAL CAP TAKE ONE CAPSULE BY MOUTH ACTIVE THREE TIMES A DAY FOR NERVE PAIN 14) PSYLLIUM ORAL PWD MIX AND DRINK 1 TEASPOONFUL BY ACTIVE MOUTH ONCE A DAY FOR FIBER SUPPLEMENTATION MIX IN GLASS OF WATER/JUICE. FLAVOR SUBSTITUTIONS MAY/WILL OCCUR AND SPECIFIC VARIETIES WILL NOT BE PROVIDED. 15) TOPIRAMATE 50MG TAB TAKE ONE TABLET BY MOUTH TWICE A ACTIVE DAY FOR SEIZURES OR MIGRAINE PROPHYLAXIS 16) VALSARTAN 320MG TAB TAKE ONE TABLET BY MOUTH ONCE A ACTIVE DAY TO LOWER BLOOD PRESSURE Vital signs today are: 09:07 T: 98.1 F (36.7 C) P: 79 R: 20 B/P: 145/75* Wt: 216.10 lb (98.02 kg) Body Mass Index: 28* Pulse Oximetry: 97% Pain: 0 - No pain He is in no distress at rest. The neck is without JVD. The lungs are clear to auscultation. The heart is a regular rate and rhythm and no murmurs or gallops. The abdomen is soft, nontender without organomegaly or masses. There is no peripheral edema. Mr. Duque is cleared to participate in the CARP program at [facility] with a maximum heart rate of 120. /radha/ [place] Staff Physician - Pulmonary Signed: 11/16/2023 08:[address] [facility]
--- OUTSIDE RECORDS SUMMARY | 2024-11-02 11:53 | XMS_ITS | Encounter Summary ---
Author Name [facility] [place] [facility] [facility] [place] Address [address] [place] [address] Care Team Providers Care Patient Observation Assistant Name Role Phone NATALIO BRIDGES Primary Care [...] PART A Oct 28, 2001 PART A [id number] Petra DUQUE PATIENT MEDICARE (WNR) MEDICARE (M) PART A Oct 28, 2001 PART A [id number] [phone] Petra DUQUE PATIENT MEDICARE (WNR) MEDICARE (M) PART B Oct 28, 2001 PART B [id number] Petra DUQUE PATIENT Selected Encounter This section includes the information on record at [place] for the Encounter. Date/Time Encounter Type Encounter Description Reason Provider Source Apr 22, 2024 10:00 AM OFFICE O/P EST HI 40 MIN ANESTHESIA PRE/POST-OP CONSULT ICD-10-CM Z01.818 Encounter for other preprocedural examination BALJIT COULTER [facility] Encounter Template Text not used by [place] Assessments - Encounter Diagnoses This section includes the primary and secondary diagnoses documented for the Encounter. Date/Time Primary/Secondary Diagnosis Diagnosis Name Provider Source Apr 22, 2024 10:29 AM PRIMARY Encounter for other preprocedural examination FLORINDA COULTER [facility] Apr 22, 2024 10:29 AM SECONDARY Chronic obstructive pulmonary disease, unspecified FLORINDA COULTER [facility] Apr 22, 2024 10:29 AM SECONDARY Essential (primary) hypertension FLORINDA COULTER [facility] Apr 22, 2024 10:29 AM SECONDARY Gastro-esophageal reflux disease without esophagitis FLORINDA COULTER [facility] Apr 22, 2024 10:29 AM SECONDARY Low back pain, unspecified FLORINDA COULTER [facility] Apr 22, 2024 10:29 AM SECONDARY Migraine w/o aura, not intractable, w/o status migrainosus FLORINDA COULTER [facility] Apr 22, 2024 10:29 AM SECONDARY Other specified forms of tremor FLORINDA COULTER [facility] Apr 22, 2024 10:29 AM SECONDARY Trigeminal neuralgia FLORINDA COULTER [facility] Apr 22, 2024 10:29 AM SECONDARY Type 2 diabetes mellitus without complications FLORINDA COULTER [facility] Apr 22, 2024 10:29 AM SECONDARY Unil inguinal hernia, w/o obst or gangr, not spcf as recur [facility] Plan of Treatment: Future Appointments (+ 6 months) and Future Tests (+/- 45 days) The Plan of Treatment section includes future care activities for the patient from all [place] treatmentfacilities. This section includes future appointments and future orders which are active, pending or scheduled. Future Appointments This section includes appointments that were scheduled to occur 6 months from the date of the Encounter, up to a maximum of 20 appointments. The data comes from all [place] treatment facilities. Appointment Date/Time Appointment Type Appointme nt Facility Name May 02, 2024 09:00 AM AMBULATORY - NONE [facility] May 06, 2024 03:30 PM AMBULATORY - MEDICINE [facility] May 19, 2024 11:00 AM AMBULATORY - MEDICINE [facility] May 22, 2024 09:30 AM AMBULATORY - SURGERY . [facility] May 27, 2024 09:30 AM AMBULATORY - NONE [facility] Jul 11, 2024 02:00 PM AMBULATORY - NONE [facility] Aug 07, 2024 07:30 AM AMBULATORY - NONE [facility] Aug 15, 2024 10:30 AM AMBULATORY - MEDICINE [facility] Sep 04, 2024 01:30 PM AMBULATORY - MEDICINE [facility] Sep 05, 2024 10:00 AM AMBULATORY - NONE [facility] Sep 18, 2024 12:20 PM AMBULATORY - MEDICINE [facility] Sep 22, 2024 11:30 AM AMBULATORY - NONE [facility] Lab Results: +/- 30 days of the encounter This section includes the Chemistry and Hematology Lab Results on record with [place] for the patient. Radiology Reports and Pathology Reports are provided separately, in subsequent sections. Lab Results This section contains the Chemistry/Hematology Results that were resulted 30 days before or 30 daysafter the date of the Encounter. Date/Time Source Result Type Result - Unit Interpretation Reference Range Comment May 03, 2024 06:10 AM [facility] GLUCOSE,BLOOD-poct (STL) Specimen Type: BLOOD Comment: Test Performed by: [id number] Meter #: [id number] Ordering Provider: PALMA WASHBURN III Report Released Date/Time: May 03, 2024 06:30 AM Reporting Lab: [address] [address] Performing Lab: [facility] [address] [facility] [address] GLUCOSE,BLOOD-po ct (STL) 107 mg/dL H 72-99 May 02, 2024 09:17 PM [facility] GLUCOSE,BLOOD-poct (STL) Specimen Type: BLOOD Comment: Test Performed by: [id number] Meter #: [id number] Ordering Provider: PALMA WASHBURN III Report Released Date/Time: May 02, 2024 10:39 PM Reporting Lab: [facility] [address] [facility] [address] Performing Lab: [place] [address] [facility] [address] GLUCOSE,BLOOD-po ct (STL) 122 mg/dL H 72-May 02, 2024 07:15 PM [facility] MRSA SURVL NARES DNA Specimen Type: [...] May 02, 2024 07:37 PM Reporting Lab: [facility] [address] [facility] [address] Performing Lab: [facility] [address] [facility] [address] MRSA SURVL NARES DNA Negative Negative May 02, 2024 06:35 PM [facility] GLUCOSE,BLOOD-poct (STL) Specimen Type: BLOOD Comment: Test Performed by: [id number] Meter #: [id number] Ordering Provider: PALMA WASHBURN III Report Released Date/Time: May 02, 2024 06:47 PM Reporting Lab: [address] [address] Performing Lab: [place] [address] [facility] [address] GLUCOSE,BLOOD-po ct (STL) 107 mg/dL H 72-99 May 02, 2024 04:15 PM [facility] GLUCOSE,BLOOD-poct (STL) Specimen Type: BLOOD Comment: Test Performed by: [id number] Meter #: [id number] Ordering Provider: FILI EDWARDS Report Released Date/Time: May 02, 2024 04:26 PM Reporting Lab: [address] [address] Performing Lab: [address] [address] GLUCOSE,BLOOD-po ct (STL) 99 mg/dL 72-May 02, 2024 09:47 AM [facility] GLUCOSE,BLOOD-poct (STL) Specimen Type: BLOOD Comment: Test Performed by: [id number] Meter #: [id number] Ordering Provider: FILI EDWARDS Report Released Date/Time: May 02, 2024 10:02 AM Reporting Lab: [address] [address] Performing Lab: [address] [address] GLUCOSE,BLOOD-po ct (STL) 104 mg/dL H 72-Apr 22, 2024 10:25 AM [facility] COMPREHENSIVE METABOLIC PANEL Specimen Type: PLASMA Comment: K result may show a positive bias due to hemolysis. Specimen slightly hemolyzed. Ordering Provider: CHON COULTER Report Released Date/Time: Apr 22, 2024 10:03 AM Reporting Lab: [address] [address] Performing Lab: [address] [address] CREATININE 0.93 mg/dL 0.7-1.3 UREA NITROGEN 10.6 [...] 85.6 >60 Apr 22, 2024 10:25 AM [facility] CBC Specimen Type: BLOOD No comment entered. Ordering Provider: CHON COULTER Report Released Date/Time: Apr 22, 2024 10:03 AM Reporting Lab: [place] [address] [facility] [address] Performing Lab: [place] [address] [facility] [address] WBC 7.2 10*3/uL 3.6-11.2 RBC 5.52 10*6/uL [...] 10*3/uL 0.00-0.20 Mar 27, 2024 11:46 AM [facility] URINE DRUG SCREEN (STL) Specimen Type: URINE Comment: The cut-off value for this test was laboratory developed and its performance characteristics confirmed by the [facility] laboratory thru method comparison with reference laboratory and medication chart review. The laboratory is regulated under CLIA as qualified to perform high-complexity testing. This test is used for clinical purposes in conjunction with other laboratory tests. Ordering Provider: NATALIO BRIDGES Report Released Date/Time: Mar 27, 2024 09:30 AM Reporting Lab: [facility] [address] [facility] [address] Performing Lab: [address] [address] ETHANOL Negative mg/dL 0-20 AMPHET/METHAMPHE TAMINE Negative ng/mL COCAINE METABOLITES Negative ng/mL BENZODIAZEPINES (STL) Negative ng/mL CANNABINOIDS Negative ng/mL METHADONE Negative ng/mL OPIATES POSITIVE ng/mL CREATININE URINE/OTHERS 255.3 mg/dL H 63-166 OXYCODONE (NVJWW-[id number]-CF) Negative ng/mL BUPRENORPHINE (STL-PB-MA) Negative ng/mL FENTANYL (STL-PB) Negative ng/mL Mar 27, 2024 11:37 AM [facility] LIPID PANEL (STL) Specimen Type: PLASMA No comment entered. Ordering Provider: JEANNETTE PEÑA Report Released Date/Time: December 11, 2023 10:25 AM Reporting Lab: [facility] [address] [facility] [address] Performing Lab: [address] [address] CHOLESTEROL 176 mg/dL 0-200 TRIGLYCERIDE 242 mg/dL H 0-150 CALCULATED LDL 95 mg/dL HDL(New) 33 mg/dL L >40 Mar 27, 2024 11:36 AM [facility] HGA1C Specimen Type: BLOOD No comment entered. Ordering Provider: NATALIO BRIDGES Report Released Date/Time: Mar 27, 2024 09:29 AM Reporting Lab: [place] [address] [facility] [address] Performing Lab: [facility] [address] [facility] [address] HGA1C 5.9 4.0-6.0 Vital Signs: All taken on the encounter date This section contains inpatient and outpatient Vital Signs collected on the date of the Encounter. Date/Time Temperature Pulse Blood Pressure Respiratory Rate SP02 Pain Height Weight Body Mass Index Source Apr 22, 2024 09:54 AM 97.9 62 142/75 18 98 74 219.2 28 [facility] Social History: Smoking Status (Most current) and Tobacco Use (All prior to encounter date) This section includes the most current, and the historical, smoking and tobacco- related health factors from the [place] facility where the Encounter took place. Current Smoking Status This section includes the most current smoking, or tobacco-related health factor, from the [place] facility where the Encounter took place. Date/Time Current Smoking Status Comment Tristan ity Oct 17, 2023 04:53 PM ORYX ADMIT TOBACCO SCREEN NO [facility] Tobacco Use History This section includes a history of the smoking, or tobacco-related health factors, that were collected on or before the date of the Encounter. The data comes from the [place] facility where the Encounter took place. Date/Time Smoking Status/Tobacco Use Comment F [email or web address] Oct 17, 2023 03:00 PM ORYX ADMIT TOBACCO SCREEN NO [facility] Dec 31, 2021 03:07 PM ORYX ADMIT TOBACCO SCREEN NO [facility] Apr 06, 2017 11:33 PM QUIT TOBACCO >7 YEARS AGO [facility] Mar 21, 2017 04:29 AM QUIT TOBACCO >7 YEARS AGO [facility] Jan 20, 2014 09:56 AM QUIT TOBACCO >7 YEARS AGO [facility] Jan 02, 2013 01:23 PM QUIT TOBACCO >7 YEARS AGO [facility] May 25, 2010 01:35 PM LIFETIME NON-USER OF TOBACCO [facility] Aug 17, 2009 01:04 PM QUIT TOBACCO >12 M O & <7 YRS AGO [facility] Sep 17, 2008 01:34 PM QUIT TOBACCO >12 M O & <7 YRS AGO [facility] Sep 20, 2006 10:57 AM QUIT TOBACCO >12 M O & <7 YRS AGO [facility] Jun 05, 2006 10:49 AM CURRENT NON-TOBACC O USER-HX OF USE [facility] Jun 05, 2006 10:49 AM TOBACCO TERMINATION STAGE [facility] Jul 14, 2005 11:00 AM CURRENT NON-TOBACC O USER-HX OF USE [facility] Jul 14, 2005 11:00 AM TOBACCO TERMINATION STAGE [facility] Oct 23, 2004 04:56 PM CURRENT NON-TOBACC O USER-HX OF USE [facility] Oct 23, 2004 04:56 PM TOBACCO ACTION STAGE [facility] Apr 07, 2004 10:58 AM CURRENT NON-TOBACC O USER-HX OF USE [facility] Apr 07, 2004 10:58 AM TOBACCO MAINTENANCE STAGE [facility] December 18, 2002 11:17 AM CURRENT TOBACCO USER [facility] December 18, 2002 11:17 AM TOBACCO USE [facility] Apr 07, 2002 02:25 PM CURRENT NON-TOBACC O USER-RECENTLY QUIT quit 3 mo ago [facility] Apr 07, 2002 02:25 PM TOBACCO USE quit 3 mo ago [facility] Nov 19, 2001 10:50 AM CURRENT TOBACCO USER [facility] Jul 16, 2001 08:35 AM CURRENT TOBACCO USER [facility] Jun 18, 2001 08:31 AM CURRENT TOBACCO USER [facility] Jun 18, 2001 08:31 AM TOBACCO USE [facility] Advance Directives: All historical and current Section Date Range: From patient's date of to the date document was created. This section includes ALL of a patient's completed or amended [place] Advance and Rescinded Directives. The entries below indicate that a directive exists for the patient, but an actual copy is not included with this document. The data comes from all [place] facilities. Date Advance Directives Provider Source Feb 18, 2018 ADVANCE DIRECTIVE DISCUSSION EMMETT CAMILO [facility] Radiology Reports: +/- 30 days of [...] the Encounter. The data comes from all [facility]. Date/Time Radiology Report Provider Source Apr 22, 2024 10:54 AM CHEST X-RAY, 2 VIE WS: MAURILIO DUQUE [id number] -[id number] M Ex Date: APR 22, 2024@10:54 Req Phys: CHON COULTER Loc: -ANES PREOP EVAL 1 (Req'g Lo Img Loc: -MAIN RADIOLOGY SUITE Service: [address] [address] (Case [id number] COMPLETE) CHEST X-RAY, 2 VIEWS (RAD Detailed) CPT:17513 Reason for Study: preop Clinical History: Report Status: Verified Date Reported: APR 22, 2024 Date Verified: APR 22, 2024 Backside Grinder E-Sig:/ES/Jelani Parkinson MD Report: FINDINGS: The examination was compared with previous examination of September. Heart size is normal. Mediastinal structures appear unremarkable. Both lungs are fully expanded without evidence of pulmonary infiltrates or additional significant findings. Impression: No evidence of acute cardiopulmonary disease. Primary Interpreting Staff: Jelani Parkinson MD, Radiologist (Backside Grinder) /QMJELANI OCHOA [facility] Pathology Reports: +/- 30 days of [...] the Encounter. The data comes from all [facility] treatment facilities. Date/Time Pathology Report Provider Source [...] (Received May 05, 2024 09:21): Caterina HERNANDEZ RESFATEMEHOIR WENDY) - - - - - - - [...] Surgeon/physician: PALMA WASHBURN III Attending Surgeon: Palma E Washburn III =-=-=-=-=-=-=-=-=-=-=-=-=-=- =-=-=-=-=-=-=-=-=-=-=-=-=-=- =-=-=-=-=-=-=-=-=-=-=-= - - [...] specimen is for gross examination only. 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 PATHOLOGIST Signed May 05, 2024@10:41 Performing Laboratory: Surgical Pathology Report Performed By: [facility] [address] [place] [address]# [id number] [address] [address] $FTR - - - - - - - - - - - - - - - - - - - - - - - - - - - - - - - - - - - - - - - - (End of report) IVAN CASTILLO MD Date May 05, 2024 - - - - - - - - - - - - - - - - - - - - - - - - - - - - - - - - - - - - - - - - MAURILIO DUQUE STANDARD FORM 515 ID:[id number] SEX:M :1950 AGE: 73 LOC:[facility] PCP: Natalio Bridges MD /radha/ IVAN CASTILLO M.D., PH.D. PATHOLOGIST Signed: 05/05/2024 10:41 IVAN CASTILLO [facility] Encounter Notes: All associated encounter notes This section contains the clinical notes associated to the Encounter. Date/Time Encounter Note(s) Provider Source Apr 23, 2024 02:54 PM ADDENDUM: LOCAL TITLE: Addendum STANDARD TITLE: ADDENDUM DATE OF NOTE: APR 23, 2024@14:54:24 ENTRY DATE: APR 23, 2024@14:54:25 AUTHOR: CHON COULTER EXP COSIGNER: URGENCY: STATUS: COMPLETED lab: Mar CBC, CMP w/in acceptable limits CXR: Mar Impression: No evidence of acute cardiopulmonary disease. ECMar 46245.2 Ventricular Rate: 57 BPM 84272.3 Atrial Rate: 57 BPM 80972.4 P-R Interval: 190 ms 40503.5 QRS Duration: 104 ms 13254.6 Q-T Interval: 414 ms 58407 QTC Calculation(Bazett)402 ms 86355.12 Calculated P [place]: 77 degrees 42099.13 Calculated R [place]: 60 degrees 81727.14 Calculated T [place]: 71 degrees Sinus bradycardia Otherwise normal ECG When compared with ECG of 19-NOV-2023 12:39, No significant change was found The pt may proceed as planned. /radha/ CHON COULTER PAC Physician Marketing Technology Specialist, Anesthesiology Signed: 04/23/2024 14:57 Receipt Acknowledged By: 04/24/2024 15:00 /radha/ PAMELA GARCIA RN, BSN REGISTERED NURSE --- Original Document --- 04/22/24 ANESTHESIA PREOPERATIVE EVALUATION CONSULT STL: MAURILIO DUQUE is a 73 year old MALE ========= Pre-operative diagnosis: R inguinal hernia Operation proposed: robotic RIH on 05/02 ========= VITALS Age: 73 Weight: 219.2 lb [99.43 kg] (04/22/2024 09:54) Height: 74 in [188.0 cm] (04/22/2024 09:54) BMI: 28.2 Blood pressure: 142/75 (04/22/2024 09:54) Pulse: 62 (04/22/2024 09:54) Temperature: 97.9 F [36.6 C] (04/22/2024 09:54) Respiration: 18 (04/22/2024 09:54) SpO2: 98% (04/22/2024 09:54) Pain: 0 (04/10/2024 10:57) ========= ALLERGIES LISINOPRIL, FENTANYL, COCONUTS ========= MEDICATIONS Inpatient: 1) CEFAZOLIN 2GM/BAG INJ,SOLN IVPB Q4H O.R. Apr Standard doses needed: 2 Active Outpatient Medications (including Supplies): Active Outpatient [...] HEART OR CIRCULATION. TAKE WITH FOOD. 5) CARBOXYMETHYLCELLULOSE NA 0.5% OPH SOLN INSTILL 1 ACTIVE DROP IN BOTH EYES FOUR TIMES A DAY NEEDED FOR DRY EYE(S) 6) CHOLECALCIF 50MCG (D3-2,000UNIT) TAB TAKE TWO TABLETS ACTIVE BY MOUTH ONCE A DAY FOR VITAMIN D DEFICIENCY. 7) CICLOPIROX 8% TOP SOLN APPLY LIGHTLY TO AFFECTED ACTIVE AREA(S) ONCE A DAY (THIN COAT TO THICK NAILS - FILE DOWN AFTER 1 WEEK) (EXTERNAL USE ONLY) 8) CYCLOBENZAPRINE HCL 10MG TAB TAKE ONE TABLET BY MOUTH ACTIVE THREE TIMES A DAY FOR MUSCLE SPASM MAY CAUSE DROWSINESS. DO NOT DRINK ALCOHOL WHILE TAKING THIS MEDICATION. 9) HYDROCODONE 10/ACETAMINOPHEN 325MG TAB TAKE 1 TABLET ACTIVE (S) BY MOUTH EVERY 6 HOURS NEEDED FOR PAIN CAUTION: DO NOT EXCEED 4000MG PER DAY ACETAMINOPHEN (APAP) FROM ALL MEDS. DO NOT TAKE WITH OXYCODONE 10) METFORMIN HCL 1000MG TAB TAKE ONE TABLET BY MOUTH ACTIVE TWICE A DAY WITH MEALS FOR BLOOD SUGAR CONTROL. AVOID ALCOHOL. DISCONTINUE BEFORE GETTING XRAY DYE. 11) NALOXONE HCL 8MG/SPRAY SOLN NASAL SPRAY USE 1 SPRAY ACTIVE (8MG) INTO ONE NOSTRIL ONLY ONE-TIME FOR OPIOID OVERDOSE DO NOT PRIME NASAL SPRAY. SPRAY ONE DOSE IN ONE NOSTRIL, GIVE ADDITIONAL DOSE IF PATIENT DOES NOT START BREATHING WITHIN 2-3 MINUTES OR STOPS BREATHING AGAIN. CALL 911. IF USED, NOTIFY PROVIDER. 12) PANTOPRAZOLE NA 40MG EC TAB TAKE ONE TABLET BY MOUTH ACTIVE TWO TIMES A DAY BEFORE MEALS TO LOWER STOMACH ACID - TAKE 30 MINUTES BEFORE MEAL(S) 13) POLYETHYLENE GLYCOL 3350 ORAL PWDR MIX AND DRINK 1 ACTIVE CAPFUL BY MOUTH ONCE A DAY FOR CONSTIPATION (MEASURE WITH CAP AND MIX IN 8 OZ OF WATER) 14) PREGABALIN 200MG ORAL CAP TAKE ONE CAPSULE BY MOUTH ACTIVE THREE TIMES A DAY FOR NERVE PAIN 15) PSYLLIUM ORAL PWD MIX AND DRINK 1 TEASPOONFUL BY ACTIVE MOUTH ONCE A DAY FOR FIBER SUPPLEMENTATION MIX IN GLASS OF WATER/JUICE. FLAVOR SUBSTITUTIONS MAY/WILL OCCUR AND SPECIFIC VARIETIES WILL NOT BE PROVIDED. 16) SODIUM FLUORIDE 1.1% TOOTHPASTE USE DIRECTED BY ACTIVE MOUTH ONCE A DAY TOOTHPASTE (DO NOT SWALLOW) 17) TAMSULOSIN HCL 0.4MG CAP TAKE ONE CAPSULE BY MOUTH ACTIVE EVERY EVENING APPROXIMATELY 30 MINUTES AFTER THE SAME MEAL EACH DAY 18) TOPIRAMATE 50MG TAB TAKE ONE TABLET BY MOUTH TWICE A ACTIVE DAY FOR SEIZURES OR MIGRAINE PROPHYLAXIS 19) VALSARTAN 320MG TAB TAKE ONE TABLET BY MOUTH ONCE A ACTIVE (S) DAY TO LOWER BLOOD PRESSURE Pending Outpatient Medications Status ========= 1) POLYETHYLENE GLYCOL 3350 ORAL PWDR MIX AND DRINK 1 PENDING CAPFUL BY MOUTH ONCE A DAY (MEASURE WITH CAP AND MIX IN 8 OZ OF WATER) 20 Total Medications ========= LABS WBC 8.4 10*3/uL 11/30/2023 13:10 RBC 6.08 H 10*6/uL 11/30/2023 13:10 HGB 16.8 g/dL 11/30/2023 13:10 HCT 51.7 H % 11/30/2023 13:10 MCV 85.0 fL 11/30/2023 13:10 MCH 27.6 pg 11/30/2023 13:10 MCHC 32.5 L g/dL 11/30/2023 13:10 RDW 13.9 % 11/30/2023 13:10 PLT 234 10*3/uL 11/30/2023 13:10 MPV 11.8 H fL 10/19/2023 06:00 NEUTROPHILS, AUTO % 67 % 11/30/2023 13:10 LYMPHOCYTES, AUTO % 23 % 11/30/2023 13:10 MONOCYTES, AUTO % 8 % 11/30/2023 13:10 EOSINOPHILS, AUTO % 1 % 11/30/2023 13:10 BASOPHILS, AUTO % 1 % 11/30/2023 13:10 IMMATURE GRANS, AUTO % 0.2 % 04/28/2022 14:30 NEUTROPHILS, ABSOLUTE 5.69 10*3/uL 11/30/2023 13:10 LYMPHOCYTES, ABSOLUTE 1.96 10*3/uL 11/30/2023 13:10 MONOCYTES, ABSOLUTE 0.63 10*3/uL 11/30/2023 13:10 EOSINOPHILS, ABSOLUTE 0.07 10*3/uL 11/30/2023 13:10 BASOPHILS, ABSOLUTE 0.04 10*3/uL 11/30/2023 13:10 IMMATURE GRANS, AUTO ABS 0.02 10*3/uL 04/28/2022 14:30 NRBC% 0 #/100 (WBCs) 11/30/2023 13:10 NEUTROPHILS 86.1 % 10/17/2023 09:10 LYMPHOCYTES 5.2 % 10/17/2023 09:10 MONOCYTES 4.4 % 10/17/2023 09:10 ATYPICAL LYMPHOCYTES 4.3 % 10/17/2023 09:10 IMMATURE PLT FRACTION 5.2 % 11/30/2023 13:10 INR VALUE 1.0 INR 08/14/2023 13:38 PROTIME 11.1 sec 08/14/2023 13:38 APTT 33.2 sec 08/14/2023 13:38 SODIUM 138 mEq/L 01/11/2024 09:10 POTASSIUM 4.4 mEq/L 01/11/2024 09:10 CHLORIDE 105 mEq/L 01/11/2024 09:10 UREA NITROGEN 16.2 mg/dL 01/11/2024 09:10 CREATININE 1.20 mg/dL 01/11/2024 09:10 CALCIUM 10.2 mg/dL 01/11/2024 09:10 PROTEIN 7.2 g/dL 01/11/2024 09:10 ALBUMIN 4.3 g/dL 01/11/2024 09:10 ALKALINE PHOSPHATASE 92 U/L 01/11/2024 09:10 ALT/SGPT 31 U/L 01/11/2024 09:10 AST/SGOT 27 U/L 01/11/2024 09:10 TOTAL BILIRUBIN 0.4 mg/dL 01/11/2024 09:10 CARBON DIOXIDE 21 L mEq/L 01/11/2024 09:10 GLUCOSE 136 H mg/dL 01/11/2024 09:10 EGFR (CKD-EPI 2020) 63.1 01/11/2024 09:10 HGA1C 5.9 % 03/27/2024 11:36 AMPHET/METHAMPHETAMINE Negative ng/mL 03/27/2024 11:46 BENZODIAZEPINES (STL) Negative ng/mL 03/27/2024 11:46 CANNABINOIDS Negative ng/mL 03/27/2024 11:46 COCAINE METABOLITES Negative ng/mL 03/27/2024 11:46 OPIATES POSITIVE ng/mL 03/27/2024 11:46 No HIV SCREENING EO data found [facility] Hep C tests in last five years. *No Lab Data Found* ========= [place] [address].2 Ventricular Rate: 71 BPM 89107.3 Atrial Rate: 71 BPM 09165.4 P-R Interval: 178 ms 76170.5 QRS Duration: 106 ms 47883.6 Q-T Interval: 400 ms 41703 QTC Calculation(Bazett)434 ms 12065.12 Calculated P [place]: 60 degrees 14602.13 Calculated R [place]: 51 degrees 00458.14 Calculated T [place]: 60 degrees Normal sinus rhythm Normal ECG When compared with ECG of 17-OCT-2023 10:02, No significant change was found CXR: Impression for CHEST PORTABLE, 10/17/23, case [id number] Evaluation is limited by overlying monitoring leads and wires. There is persistent elevation of the left hemidiaphragm. Left greater than right bibasal atelectasis. No pneumothorax. No large pleural effusion. No focal consolidation. Normal heart size. Unchanged mediastinal contours. PFT: 11-15-2023 SPIROMETRY & FLOW-VOLUME CURVE: The flow-volume curves are not reproducible. This diminishes the reliability of the results. Interpretation is based on the best data obtained. The proportionate reduction in FEV1 and FVC suggests a restrictive abnormality. Following administration of inhaled bronchodilator, there is no significant response. LUNG VOLUMES: The reduction in total lung capacity indicates a mild restrictive abnormality. DLCO: The reduced diffusing capacity indicates a moderate loss of functional alveolar capillary surface. However, the diffusing capacity was not corrected for the patient's hemoglobin level, and anemia may decrease while erythrocytosis may increase the reported value. OXYGENATION: O2 saturation is normal by pulse oximetry at rest and exertion. 6 minute walk distance is decreased. CONCLUSIONS: There is mild restriction. There is no bronchodilator response. There is impairment of diffusing capacity but not of oxygenation. Compared to the previous study on 12/19/2004, spirometry is worse. Echocardiogram: 12-11-2023 Conclusion 1. Normal left ventricular size. Mild left ventricular hypertrophy. 2. Global systolic function: Overall left ventricular systolic function is normal with an estimated ejection fraction of 60%. 3. Diastolic function: Mitral inflow pattern and tissue Doppler is consistent with mild diastolic dysfunction (grade I) and normal left atrial filling pressure. 4. Normal right ventricular size and systolic function. 5. The left atrium is mildly enlarged. 6. There is thickening of the non-coronary cusp. No evidence of aortic stenosis. 7. The aortic root is normal in size. 8. The inferior vena cava is normal in size with normal inspiratory variation, which is consistent with estimated right atrial pressure of 3 mmHg. 9. Effusion: No pericardial effusion. Stress test: MD report: 01-14-2024 Impression: 1. Normal SPECT myocardial imaging without evidence of stress-induced ischemia. 2. Normal left ventricle contractility with LVEF of 71%. ========= PROBLEM LIST 1) Benign essential hypertension (SNOMED CT 7868835) 2) Left trigeminal neuralgia (SNOMED CT [id number]) comment: s/p gamaknife surgery 3) GERD - Gastro-esophageal reflux disease (SNOMED CT 919619145) 4) Chronic obstructive lung disease (SNOMED CT 58092926) 5) LBP - Low back pain (SNOMED CT 179923008) 6) Knee pain (SNOMED CT 66972249) 7) Chest pain 8) Hip joint pain 9) Candidiasis of the esophagus 10) Parotitis 11) Cervicalgia 12) Long-term current use of opiate analgesic drug 13) Diabetes Mellitus Type 2 ([facility] [id number]) 14) Inguinal hernia comment: right sided. 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 21) Exposure to potentially hazardous substance ========= REVIEW OF SYSTEMS/PAST MEDICAL HISTORY: ========= RESPIRATORY for: - Recent or current SOB - Sleep apnea - Asthma + COPD-uses inhalers as needed, no recent problems, breathing at baseline + hx admit pneumonia Sep 2023 CARDIAC for: - Recent chest pain + Hypertension + Hyperlipidemia + Myocardial infarction - Coronary artery disease + hx Heart failure - Valvular disease - Atrial fibrillation/flutter - orthopnea - syncope *Functional capacity: >4 METs: able to walk 2 city blocks or climb flight of stairs PSYCH/CENTRAL NERVOUS for: + migraines + hx trigeminal neuralgia w/hx gamaknife surgery + hx TBI + tremor - Depression - Anxiety + Post-traumatic stress disorder + Cerebral vascular accident-mild L weakness in hand - Seizures ENDOCRINE for: + Diabetes - Hypothyroid RENAL for: - Chronic kidney disease - Nephrolithiasis GI for: + GERD-controlled w/PPI - Liver disease - GI bleed VASCULAR/HEMATOLOGY/ONCOLOGY for: - Anemia - Thrombocytopenia - Bleeding disorders MUSCULOSKELETAL/SKIN/PERIPHERAL NERVOUS for: - Obesity + Arthritis/Degenerative joint disease - Rheumatoid arthritis + Neuropathy /REPRODUCTIVE for: + Prostate hypertrophy OTHER: + R inguinal hernia HABITS Alcohol: none Smoking: none Other drugs: none ========= SURGICAL HISTORY: gamaknife surgery, prostate bx, penile implants w/explants, open bilat IHR, R IHR, R groin explor Previous anesthesia complications: None Family history of anesthesia complications: None PHYSICAL EXAM: Auscultation Finding: Heart Sounds: Regular Rate, Regular Rhythm Breath Sounds: Clear, no wheezes/rales/rhonchi AIRWAY: MP CLASS: I SUBMANDIBULAR SPACE: 3 fingerbreadths RANGE OF MOTION: FULL TEETH: Intact-missing some BETA BLOCKERS: none RECOMMENDATIONS/PLAN: 1. Additional labs/imaging/consults needed for anesthesia team: lab/ECG/CXR 2. If tests are within acceptable limits, the patient may proceed as planned and will be reassessed by Anesthesia AM of surgery. 3. NPO after midnight except for small sips of water with meds. 4. Unless directed by procedural team, take morning medications with a sip of water EXCEPT: valsartan and metformin AM of surgery. 5. Anticoagulation and antithrombotics per procedural team. 6. If patient uses CPAP, they should bring machine with them. Time spent reviewing patient's [place] medical records: 15 min Time spent in consultation with the patient: 40 minutes /radha/ CHON DAVID Physician Marketing Technology Specialist, Anesthesiology Signed: 04/22/2024 10:29 Receipt Acknowledged By: 04/22/2024 11:23 /radha/ PAMELA GARCIA RN, BSN REGISTERED NURSE CHON COULTER [facility] Apr 22, 2024 09:59 AM ANESTHESIOLOGY CONSULT: LOCAL TITLE: ANESTHESIA PREOPERATIVE EVALUATION CONSULT [facility] STANDARD TITLE: ANESTHESIOLOGY CONSULT DATE OF NOTE: APR 22, 2024@09:59 ENTRY DATE: APR 22, 2024@09:59:17 AUTHOR: CHON COULTER EXP COSIGNER: URGENCY: STATUS: COMPLETED ANESTHESIA PREOPERATIVE EVALUATION CONSULT [facility] Has ADDENDA MAURILIO DUQUE is a 73 year old MALE ========= Pre-operative diagnosis: R inguinal hernia Operation proposed: robotic RIH on 05/02 ========= VITALS Age: 73 Weight: 219.2 lb [99.43 kg] (04/22/2024 09:54) Height: 74 in [188.0 cm] (04/22/2024 09:54) BMI: 28.2 Blood pressure: 142/75 (04/22/2024 09:54) Pulse: 62 (04/22/2024 09:54) Temperature: 97.9 F [36.6 C] (04/22/2024 09:54) Respiration: 18 (04/22/2024 09:54) SpO2: 98% (04/22/2024 09:54) Pain: 0 (04/10/2024 10:57) ========= ALLERGIES LISINOPRIL, FENTANYL, COCONUTS ========= MEDICATIONS Inpatient: 1) CEFAZOLIN 2GM/BAG INJ,SOLN IVPB Q4H O.R. Oct Standard doses needed: 2 Active Outpatient Medications (including Supplies): Active Outpatient [...] HEART OR CIRCULATION. TAKE WITH FOOD. 5) CARBOXYMETHYLCELLULOSE NA 0.5% OPH SOLN INSTILL 1 ACTIVE DROP IN BOTH EYES FOUR TIMES A DAY NEEDED FOR DRY EYE(S) 6) CHOLECALCIF 50MCG (D3-2,000UNIT) TAB TAKE TWO TABLETS ACTIVE BY MOUTH ONCE A DAY FOR VITAMIN D DEFICIENCY. 7) CICLOPIROX 8% TOP SOLN APPLY LIGHTLY TO AFFECTED ACTIVE AREA(S) ONCE A DAY (THIN COAT TO THICK NAILS - FILE DOWN AFTER 1 WEEK) (EXTERNAL USE ONLY) 8) CYCLOBENZAPRINE HCL 10MG TAB TAKE ONE TABLET BY MOUTH ACTIVE THREE TIMES A DAY FOR MUSCLE SPASM MAY CAUSE DROWSINESS. DO NOT DRINK ALCOHOL WHILE TAKING THIS MEDICATION. 9) HYDROCODONE 10/ACETAMINOPHEN 325MG TAB TAKE 1 TABLET ACTIVE (S) BY MOUTH EVERY 6 HOURS NEEDED FOR PAIN CAUTION: DO NOT EXCEED 4000MG PER DAY ACETAMINOPHEN (APAP) FROM ALL MEDS. DO NOT TAKE WITH OXYCODONE 10) METFORMIN HCL 1000MG TAB TAKE ONE TABLET BY MOUTH ACTIVE TWICE A DAY WITH MEALS FOR BLOOD SUGAR CONTROL. AVOID ALCOHOL. DISCONTINUE BEFORE GETTING XRAY DYE. 11) NALOXONE HCL 8MG/SPRAY SOLN NASAL SPRAY USE 1 SPRAY ACTIVE (8MG) INTO ONE NOSTRIL ONLY ONE-TIME FOR OPIOID OVERDOSE DO NOT PRIME NASAL SPRAY. SPRAY ONE DOSE IN ONE NOSTRIL, GIVE ADDITIONAL DOSE IF PATIENT DOES NOT START BREATHING WITHIN 2-3 MINUTES OR STOPS BREATHING AGAIN. CALL 911. IF USED, NOTIFY PROVIDER. 12) PANTOPRAZOLE NA 40MG EC TAB TAKE ONE TABLET BY MOUTH ACTIVE TWO TIMES A DAY BEFORE MEALS TO LOWER STOMACH ACID - TAKE 30 MINUTES BEFORE MEAL(S) 13) POLYETHYLENE GLYCOL 3350 ORAL PWDR MIX AND DRINK 1 ACTIVE CAPFUL BY MOUTH ONCE A DAY FOR CONSTIPATION (MEASURE WITH CAP AND MIX IN 8 OZ OF WATER) 14) PREGABALIN 200MG ORAL CAP TAKE ONE CAPSULE BY MOUTH ACTIVE THREE TIMES A DAY FOR NERVE PAIN 15) PSYLLIUM ORAL PWD MIX AND DRINK 1 TEASPOONFUL BY ACTIVE MOUTH ONCE A DAY FOR FIBER SUPPLEMENTATION MIX IN GLASS OF WATER/JUICE. FLAVOR SUBSTITUTIONS MAY/WILL OCCUR AND SPECIFIC VARIETIES WILL NOT BE PROVIDED. 16) SODIUM FLUORIDE 1.1% TOOTHPASTE USE DIRECTED BY ACTIVE MOUTH ONCE A DAY TOOTHPASTE (DO NOT SWALLOW) 17) TAMSULOSIN HCL 0.4MG CAP TAKE ONE CAPSULE BY MOUTH ACTIVE EVERY EVENING APPROXIMATELY 30 MINUTES AFTER THE SAME MEAL EACH DAY 18) TOPIRAMATE 50MG TAB TAKE ONE TABLET BY MOUTH TWICE A ACTIVE DAY FOR SEIZURES OR MIGRAINE PROPHYLAXIS 19) VALSARTAN 320MG TAB TAKE ONE TABLET BY MOUTH ONCE A ACTIVE (S) DAY TO LOWER BLOOD PRESSURE Pending Outpatient Medications Status ========= 1) POLYETHYLENE GLYCOL 3350 ORAL PWDR MIX AND DRINK 1 PENDING CAPFUL BY MOUTH ONCE A DAY (MEASURE WITH CAP AND MIX IN 8 OZ OF WATER) 20 Total Medications ========= LABS WBC 8.4 10*3/uL 11/30/2023 13:10 RBC 6.08 H 10*6/uL 11/30/2023 13:10 HGB 16.8 g/dL 11/30/2023 13:10 HCT 51.7 H % 11/30/2023 13:10 MCV 85.0 fL 11/30/2023 13:10 MCH 27.6 pg 11/30/2023 13:10 MCHC 32.5 L g/dL 11/30/2023 13:10 RDW 13.9 % 11/30/2023 13:10 PLT 234 10*3/uL 11/30/2023 13:10 MPV 11.8 H fL 10/19/2023 06:00 NEUTROPHILS, AUTO % 67 % 11/30/2023 13:10 LYMPHOCYTES, AUTO % 23 % 11/30/2023 13:10 MONOCYTES, AUTO % 8 % 11/30/2023 13:10 EOSINOPHILS, AUTO % 1 % 11/30/2023 13:10 BASOPHILS, AUTO % 1 % 11/30/2023 13:10 IMMATURE GRANS, AUTO % 0.2 % 04/28/2022 14:30 NEUTROPHILS, ABSOLUTE 5.69 10*3/uL 11/30/2023 13:10 LYMPHOCYTES, ABSOLUTE 1.96 10*3/uL 11/30/2023 13:10 MONOCYTES, ABSOLUTE 0.63 10*3/uL 11/30/2023 13:10 EOSINOPHILS, ABSOLUTE 0.07 10*3/uL 11/30/2023 13:10 BASOPHILS, ABSOLUTE 0.04 10*3/uL 11/30/2023 13:10 IMMATURE GRANS, AUTO ABS 0.02 10*3/uL 04/28/2022 14:30 NRBC% 0 #/100 (WBCs) 11/30/2023 13:10 NEUTROPHILS 86.1 % 10/17/2023 09:10 LYMPHOCYTES 5.2 % 10/17/2023 09:10 MONOCYTES 4.4 % 10/17/2023 09:10 ATYPICAL LYMPHOCYTES 4.3 % 10/17/2023 09:10 IMMATURE PLT FRACTION 5.2 % 11/30/2023 13:10 INR VALUE 1.0 INR 08/14/2023 13:38 PROTIME 11.1 sec 08/14/2023 13:38 APTT 33.2 sec 08/14/2023 13:38 SODIUM 138 mEq/L 01/11/2024 09:10 POTASSIUM 4.4 mEq/L 01/11/2024 09:10 CHLORIDE 105 mEq/L 01/11/2024 09:10 UREA NITROGEN 16.2 mg/dL 01/11/2024 09:10 CREATININE 1.20 mg/dL 01/11/2024 09:10 CALCIUM 10.2 mg/dL 01/11/2024 09:10 PROTEIN 7.2 g/dL 01/11/2024 09:10 ALBUMIN 4.3 g/dL 01/11/2024 09:10 ALKALINE PHOSPHATASE 92 U/L 01/11/2024 09:10 ALT/SGPT 31 U/L 01/11/2024 09:10 AST/SGOT 27 U/L 01/11/2024 09:10 TOTAL BILIRUBIN 0.4 mg/dL 01/11/2024 09:10 CARBON DIOXIDE 21 L mEq/L 01/11/2024 09:10 GLUCOSE 136 H mg/dL 01/11/2024 09:10 EGFR (CKD-EPI 2020) 63.1 01/11/2024 09:10 HGA1C 5.9 % 03/27/2024 11:36 AMPHET/METHAMPHETAMINE Negative ng/mL 03/27/2024 11:46 BENZODIAZEPINES (STL) Negative ng/mL 03/27/2024 11:46 CANNABINOIDS Negative ng/mL 03/27/2024 11:46 COCAINE METABOLITES Negative ng/mL 03/27/2024 11:46 OPIATES POSITIVE ng/mL 03/27/2024 11:46 No HIV SCREENING EO data found [facility] Hep C tests in last five years. *No Lab Data Found* ========= [place] [address].2 Ventricular Rate: 71 BPM 62622.3 Atrial Rate: 71 BPM 98324.4 P-R Interval: 178 ms 48789.5 QRS Duration: 106 ms 73287.6 Q-T Interval: 400 ms 10644 QTC Calculation(Bazett)434 ms 80220.12 Calculated P [place]: 60 degrees 10798.13 Calculated R [place]: 51 degrees 27993.14 Calculated T [place]: 60 degrees Normal sinus rhythm Normal ECG When compared with ECG of 17-OCT-2023 10:02, No significant change was found CXR: Impression for CHEST PORTABLE, 10/17/23, case [id number] Evaluation is limited by overlying monitoring leads and wires. There is persistent elevation of the left hemidiaphragm. Left greater than right bibasal atelectasis. No pneumothorax. No large pleural effusion. No focal consolidation. Normal heart size. Unchanged mediastinal contours. PFT: 11-15-2023 SPIROMETRY & FLOW-VOLUME CURVE: The flow-volume curves are not reproducible. This diminishes the reliability of the results. Interpretation is based on the best data obtained. The proportionate reduction in FEV1 and FVC suggests a restrictive abnormality. Following administration of inhaled bronchodilator, there is no significant response. LUNG VOLUMES: The reduction in total lung capacity indicates a mild restrictive abnormality. DLCO: The reduced diffusing capacity indicates a moderate loss of functional alveolar capillary surface. However, the diffusing capacity was not corrected for the patient's hemoglobin level, and anemia may decrease while erythrocytosis may increase the reported value. OXYGENATION: O2 saturation is normal by pulse oximetry at rest and exertion. 6 minute walk distance is decreased. CONCLUSIONS: There is mild restriction. There is no bronchodilator response. There is impairment of diffusing capacity but not of oxygenation. Compared to the previous study on 12/19/2004, spirometry is worse. Echocardiogram: 12-11-2023 Conclusion 1. Normal left ventricular size. Mild left ventricular hypertrophy. 2. Global systolic function: Overall left ventricular systolic function is normal with an estimated ejection fraction of 60%. 3. Diastolic function: Mitral inflow pattern and tissue Doppler is consistent with mild diastolic dysfunction (grade I) and normal left atrial filling pressure. 4. Normal right ventricular size and systolic function. 5. The left atrium is mildly enlarged. 6. There is thickening of the non-coronary cusp. No evidence of aortic stenosis. 7. The aortic root is normal in size. 8. The inferior vena cava is normal in size with normal inspiratory variation, which is consistent with estimated right atrial pressure of 3 mmHg. 9. Effusion: No pericardial effusion. Stress test: MD report: 01-14-2024 Impression: 1. Normal SPECT myocardial imaging without evidence of stress-induced ischemia. 2. Normal left ventricle contractility with LVEF of 71%. ========= PROBLEM LIST 1) Benign essential hypertension (SNOMED CT 4933422) 2) Left trigeminal neuralgia (SNOMED CT [id number]) comment: s/p gamaknife surgery 3) GERD - Gastro-esophageal reflux disease (SNOMED CT 010514354) 4) Chronic obstructive lung disease (SNOMED CT 42043814) 5) LBP - Low back pain (SNOMED CT 551210856) 6) Knee pain (SNOMED CT 03382355) 7) Chest pain 8) Hip joint pain 9) Candidiasis of the esophagus 10) Parotitis 11) Cervicalgia 12) Long-term current use of opiate analgesic drug 13) Diabetes Mellitus Type 2 ([facility] [id number]) 14) Inguinal hernia comment: right sided. 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 21) Exposure to potentially hazardous substance ========= REVIEW OF SYSTEMS/PAST MEDICAL HISTORY: ========= RESPIRATORY for: - Recent or current SOB - Sleep apnea - Asthma + COPD-uses inhalers as needed, no recent problems, breathing at baseline + hx admit pneumonia Sep 2023 CARDIAC for: - Recent chest pain + Hypertension + Hyperlipidemia + Myocardial infarction - Coronary artery disease + hx Heart failure - Valvular disease - Atrial fibrillation/flutter - orthopnea - syncope *Functional capacity: >4 METs: able to walk 2 city blocks or climb flight of stairs PSYCH/CENTRAL NERVOUS for: + migraines + hx trigeminal neuralgia w/hx gamaknife surgery + hx TBI + tremor - Depression - Anxiety + Post-traumatic stress disorder + Cerebral vascular accident-mild L weakness in hand - Seizures ENDOCRINE for: + Diabetes - Hypothyroid RENAL for: - Chronic kidney disease - Nephrolithiasis GI for: + GERD-controlled w/PPI - Liver disease - GI bleed VASCULAR/HEMATOLOGY/ONCOLOGY for: - Anemia - Thrombocytopenia - Bleeding disorders MUSCULOSKELETAL/SKIN/PERIPHERAL NERVOUS for: - Obesity + Arthritis/Degenerative joint disease - Rheumatoid arthritis + Neuropathy /REPRODUCTIVE for: + Prostate hypertrophy OTHER: + R inguinal hernia HABITS Alcohol: none Smoking: none Other drugs: none ========= SURGICAL HISTORY: gamaknife surgery, prostate bx, penile implants w/explants, open bilat IHR, R IHR, R groin explor Previous anesthesia complications: None Family history of anesthesia complications: None PHYSICAL EXAM: Auscultation Finding: Heart Sounds: Regular Rate, Regular Rhythm Breath Sounds: Clear, no wheezes/rales/rhonchi AIRWAY: MP CLASS: I SUBMANDIBULAR SPACE: 3 fingerbreadths RANGE OF MOTION: FULL TEETH: Intact-missing some BETA BLOCKERS: none RECOMMENDATIONS/PLAN: 1. Additional labs/imaging/consults needed for anesthesia team: lab/ECG/CXR 2. If tests are within acceptable limits, the patient may proceed as planned and will be reassessed by Anesthesia AM of surgery. 3. NPO after midnight except for small sips of water with meds. 4. Unless directed by procedural team, take morning medications with a sip of water EXCEPT: valsartan and metformin AM of surgery. 5. Anticoagulation and antithrombotics per procedural team. 6. If patient uses CPAP, they should bring machine with them. Time spent [facility]: 15 min Time spent in consultation with the patient: 40 minutes /bhupendra DAVID Physician Marketing Technology Specialist, Anesthesiology Signed: 04/22/2024 10:29 Receipt Acknowledged By: 04/22/2024 11:23 /radha/ PAMELA GARCIA RN, BSN REGISTERED NURSE 04/23/2024 ADDENDUM STATUS: COMPLETED lab: Mar CBC, CMP w/in acceptable limits CXR: Mar Impression: No evidence of acute cardiopulmonary disease. ECMar 89338.2 Ventricular Rate: 57 BPM 94551.3 Atrial Rate: 57 BPM 39959.4 P-R Interval: 190 ms 17222.5 QRS Duration: 104 ms 01963.6 Q-T Interval: 414 ms 93769 QTC Calculation(Bazett)402 ms 12842.12 Calculated P [place]: 77 degrees 56845.13 Calculated R [place]: 60 degrees 26853.14 Calculated T [place]: 71 degrees Sinus bradycardia Otherwise normal ECG When compared with ECG of 19-NOV-2023 12:39, No significant change was found The pt may proceed as planned. /bhupendra DAVID Physician Marketing Technology Specialist, Anesthesiology Signed: 04/23/2024 14:57 Receipt Acknowledged By: * AWAITING SIGNATURE * PAMELA GARCIA REBECCA F [facility]
--- OUTSIDE RECORDS SUMMARY | 2024-11-02 11:54 | XMS_ITS | Encounter Summary ---
Author Name [facility] [place] [facility] [place] Address [address] [place] [id number] Care Team Providers Care Leadership Development Consultant Name Role Phone EBERBENI NATALIO Primary Care Provider Unavail le Insurance [...] PART A Oct 28, 2001 PART A [id number] Petra DUQUE PATIENT MEDICARE (WNR) MEDICARE (M) PART B Oct 28, 2001 PART B [id number] [phone] Petra DUQUE PATIENT MEDICARE (WNR) MEDICARE (M) PART A Oct 28, 2001 PART A [id number] Petra DUQUE PATIENT Selected Encounter This section includes the information on record at [place] for the Encounter. Date/Time Encounter Type Encounter Description Reason Provider Source December 13, 2023 09:30 AM OFF/OP CNSLTJ NEW/EST MOD 40 PODIATRY ICD-10-CM B35.1 Tinea unguium MAYA CORDERO Ernie Encounter Template Text not used by [place] Assessments - Encounter Diagnoses This section includes the primary and secondary diagnoses documented for the Encounter. Date/Time Primary/Secondary Diagnosis Diagnosis Name Provider Source December 13, 2023 10:05 AM PRIMARY Tinea unguium [facility] December 13, 2023 10:05 AM SECONDARY Congenital pes cavus, left foot [facility] December 13, 2023 10:05 AM SECONDARY Congenital pes cavus, right foot [facility] December 13, 2023 10:05 AM SECONDARY [facility]ogryphosis [facility] December 13, 2023 10:05 AM SECONDARY Type 2 diabetes mellitus with unspecified complications [facility] Plan of Treatment: Future Appointments (+ 6 months) and Future Tests (+/- 45 days) The Plan of Treatment section includes future care activities for the patient from all [place] [facility]. This section includes future appointments and future orders which are active, pending or scheduled. Future Appointments This section includes appointments that were scheduled to occur 6 months from the date of the Encounter, up to a maximum of 20 appointments. The data comes from all [place] treatment facilities. Appointment Date/Time Appointment Type Appointme nt Facility Name December 17, 2023 12:00 PM AMBULATORY - NONE [facility] Jan 01, 2024 10:00 AM AMBULATORY - NONE [facility] Jan 03, 2024 10:00 AM AMBULATORY - SURGERY . [facility] Jan 14, 2024 08:30 AM AMBULATORY - MEDICINE [facility] Jan 14, 2024 09:30 AM AMBULATORY - MEDICINE [facility] Jan 23, 2024 11:30 AM AMBULATORY - REHAB MEDICIN E [facility] Feb 11, 2024 10:00 AM AMBULATORY - SURGERY . [facility] Feb 22, 2024 10:30 AM AMBULATORY - MEDICINE [facility] Feb 27, 2024 08:15 AM AMBULATORY - MEDICINE [facility] Mar 26, 2024 11:00 AM AMBULATORY - NONE [facility] Mar 27, 2024 12:40 PM AMBULATORY - MEDICINE [facility] Apr 10, 2024 10:30 AM AMBULATORY - SURGERY . [facility] Apr 22, 2024 10:00 AM AMBULATORY - SURGERY [facility] May 02, 2024 09:00 AM AMBULATORY - NONE [facility] May 06, 2024 03:30 PM AMBULATORY - MEDICINE [facility] May 19, 2024 11:00 AM AMBULATORY - MEDICINE [facility] May 22, 2024 09:30 AM AMBULATORY - SURGERY [facility] May 27, 2024 09:30 AM AMBULATORY - NONE [facility] Active, Pending, and Scheduled Orders This section includes a listing of several types of active, pending, and scheduled orders, including clinic medications orders, diagnostic test orders, procedure orders and consult orders; where the start date of the order is 45 days before the date of the Encounter or 45 days after the date of the Encounter. The data comes from all [place] treatment [facility]. Test Date/Time Test Type Test Details Facility Name Jan 15, 2024 12:00 AM Laboratory - Chemistry Order CBC BLOOD [facility] Jan 15, 2024 12:00 AM Laboratory - Chemistry Order HGA 1C BLO[address] [facility] Lab Results: +/- 30 days [...] Result - Unit Interpretation Reference Range Comment Jan 11, 2024 09:[address] [facility] TSH W/ REFLEX FT4 (STL) Specimen Type: PLASMA Comment: K result may show a positive bias due to hemolysis. Specimen slightly hemolyzed. Ordering Provider: NATALIO BRIDGES Report Released Date/Time: December 18, 2023 03:38 PM Reporting Lab: [facility] [address] [facility] [address] Performing Lab: [facility] [address] [facility] [address] TSH 2.309 u[IU]/mL 0.47-5 Jan 11, 2024 09:10 AM [facility] VITAMIN D, 25-HYDROXY Specimen Type: SERUM Comment: The listed sex of this patient may not be a typical indication for this test. Therefore, reference ranges or interpretive criteria listed may not be valid. Clinical correlation suggested. Ordering Provider: NATALIO BRIDGES Report Released Date/Time: December 18, 2023 03:38 PM Reporting Lab: [facility] [address] [facility] [address] Performing Lab: [facility] [address] [facility] [address] VITAMIN D, 25-HYDROXY 61.0 ng/mL 30-96 Jan 11, 2024 09:10 AM [facility] LIPID PANEL (STL) Specimen Type: PLASMA Comment: K result may show a positive bias due to hemolysis. Specimen slightly hemolyzed. Ordering Provider: NATALIO BRIDGES Report Released Date/Time: December 18, 2023 03:38 PM Reporting Lab: [facility] [address] [facility] [address] Performing Lab: [address] [address] CHOLESTEROL 182 mg/dL 0-200 TRIGLYCERIDE 222 mg/dL H 0-150 CALCULATED LDL 104 mg/dL HDL(New) 34 mg/dL L >40 Jan 11, 2024 09:10 AM [facility] COMPREHENSIVE METABOLIC PANEL Specimen Type: PLASMA Comment: K result may show a positive bias due to hemolysis. Specimen slightly hemolyzed. Ordering Provider: NATALIO BRIDGES Report Released Date/Time: December 18, 2023 03:38 PM Reporting Lab: [address] [address] Performing Lab: [address] [address] CREATININE 1.20 mg/dL 0.7-1.3 UREA NITROGEN 16.2 mg/dL 9.0-25.0 GLUCOSE 136 mg/dL H 72-99 SODIUM 138 meq/L 136-145 POTASSIUM 4.4 meq/L 3.5-5 CHLORIDE 105 meq/L 98-107 CARBON DIOXIDE 21 meq/L L 22-31 CALCIUM 10.2 mg/dL 8.4-10.4 PROTEIN 7.2 g/dL 6-8.6 ALBUMIN 4.3 g/dL 3.4-5 TOTAL BILIRUBIN 0.4 mg/dL 0.2-1.2 ALKALINE PHOSPHATASE 92 U/L 40-150 AST/SGOT 27 U/L 5-34 ALT/SGPT 31 U/L 8-40 EGFR (CKD-EPI 2020) 63.1 >60 Jan 11, 2024 09:10 AM [facility] MICRAL/CREAT PROFILE (STL) Specimen Type: URINE No comment entered. Ordering Provider: NATALIO BRIDGES Report Released Date/Time: December 18, 2023 03:38 PM Reporting Lab: [address] [address] Performing Lab: [address] [address] URINE ALBUMIN (PB-STL) 12.4 mg/L uACR (STL) 6 mg/g 0-29 CREATININE URINE/OTHERS 193.2 mg/dL H 63-166 Jan 11, 2024 09:10 AM [facility] PROST. SPECIFIC AG.(PB-STL) Specimen Type: SERUM Comment: The listed sex of this patient may not be a typical indication for this test. Therefore, reference ranges or interpretive criteria listed may not be valid. Clinical correlation suggested. Ordering Provider: NATALIO BRIDGES Report Released Date/Time: December 18, 2023 03:38 PM Reporting Lab: [address] [address] Performing Lab: [address] [address] PROST. SPECIFIC AG.(PB-STL) 1.518 ng/mL 0-4 November 30, 2023 03:50 PM [facility] BLOOD GAS PANEL ABG (STL) Specimen Type: VENOUS BLOOD Comment: Test Performed by: [id number] Meter #: [id number] Ordering Provider: MARCELLO SEE Report Released Date/Time: November 30, 2023 03:50 PM Reporting Lab: [address] [address] Performing Lab: [address] [address] GEM PH 7.40 7.31-7.41 GEM PCO2 45 [...] TEMP 37.0 November 30, 2023 03:45 PM [facility] LACTIC ACID (STL-PB) Specimen Type: PLASMA No comment entered. Ordering Provider: JAMIL ROBINS Report Released Date/Time: November 30, 2023 03:00 PM Reporting Lab: [address] [address] Performing Lab: [place] [id number] LACTIC ACID (STL-PB) 1.3 mmol/L 0.5-2.0 November 30, 2023 03:39 PM [facility] COVID-19 DIAGNOSTIC (FLU/RSV)(STL) Specimen Type: NASOPHARYNX [...] November 30, 2023 03:00 PM Reporting Lab: [place] [address] Performing Lab: [place] [address] INFLUENZA A Negative Negative INFLUENZA B Negative Negative COVID-19 (STL-PB) Not Detected Not Detected RSV (Cepheid) NEGATIVE Negative November 30, 2023 01:10 PM [facility] COMPREHENSIVE METABOLIC PANEL Specimen Type: PLASMA Comment: Aspartate Transaminase result may show positive bias due to hemolysis. K result canceled due to hemolysis. Specimen moderately hemolyzed. K cancelled due to moderate hemolysis. Called to Dominick Damon RN at 1445 on 11/30/2023 by KIANNA. Ordering Provider: MARCELLO SEE Report Released Date/Time: November 30, 2023 01:08 PM Reporting Lab: [address] [address] Performing Lab: [address] [address] CREATININE 0.99 mg/dL 0.7-1.3 UREA NITROGEN 13.7 [...] 79.4 >60 November 30, 2023 01:10 PM [facility] URINALYSIS W/ CX REFLEX (STL-PB) Specimen Type: URINE No comment entered. Ordering Provider: MARCELLO SEE Report Released Date/Time: November 30, 2023 01:08 PM Reporting Lab: [address] [address] Performing Lab: [address] [address] URINE COLOR Yellow Yellow U.BILIRUBIN Negative mg/dL Negative U.PH 5.5 5.0-8.0 URINE WBC/HPF <1 /[HPF] 0-5 URINE RBC/HPF 1 /[HPF] 0-5 APPEARANCE Clear Clear U.NITRITE Negative mg/dL Negative SQUAMOUS EPITH. <1 /[HPF] 0-5 MUCUS RARE /[LPF] Negative -R are HYALINE CASTS 1 /[LPF] 0-5 URN.GLUCOSE Normal mg/dL Negative URN.PROTEIN 30 mg/dL H Negative -2 0 URN.UROBILINOGE N Normal mg/dL Normal URN.BLOOD Negative mg/dL Negat tanya-T race URN.KETONES Negative mg/dL Neg ative-T race URN.LEUK.EST. Negative mg/dL N egative-T race URN.SPECIFIC GRAVITY 1.034 H 1.005-1.02 November 30, 2023 01:10 PM [facility] CBC Specimen Type: BLOOD Comment: Platelet count verified by repeat analysis. No clot found in specimen. No platelet clumping observed in smear. Ordering Provider: MARCELLO SEE Report Released Date/Time: November 30, 2023 01:08 PM Reporting Lab: [facility] [address] [facility] [address] Performing Lab: [facility] [address] [facility] [address] WBC 8.4 10*3/uL 3.6-11.2 RBC 6.08 10*6/uL [...] 10*3/uL 0.00-0.20 Nov 19, 2023 12:53 PM [facility] MICRAL/CREAT PROFILE (STL) Specimen Type: URINE No comment entered. Ordering Provider: NATALIO BRIDGES Report Released Date/Time: Oct 25, 2023 08:36 AM Reporting Lab: [facility] [address] [facility] [address] Performing Lab: [facility] [address] [facility] [address] URINE ALBUMIN (PB-STL) 29.1 mg/L uACR (STL) 9 mg/g 0-29 CREATININE URINE/OTHERS 314.1 mg/dL H 63-166 Nov 19, 2023 12:50 PM [facility] D-DIMER HS (MA-STL-PB) Specimen Type: PLASMA No comment entered. Ordering Provider: JEANNETTE PEÑA Report Released Date/Time: Nov 19, 2023 12:31 PM Reporting Lab: [facility] [address] [facility] [address] Performing Lab: [facility] [address] [facility] [address] D-DIMER HS (MA-STL-PB) 371 <500 Nov 19, 2023 12:50 PM [facility] TROPONIN I Specimen Type: PLASMA No comment entered. Ordering Provider: JEANNETTE PEÑA Report Released Date/Time: Nov 19, 2023 12:31 PM Reporting Lab: [facility] [address] [facility] [address] Performing Lab: [facility] [address] [facility] [address] TROPONIN I <0.010 ng/mL 0-0.033 Social History: Smoking Status (Most current) and Tobacco Use (All prior to encounter date) This section includes the most current, and the historical, smoking and tobacco- related health factors from the [place] facility where the Encounter took place. Current Smoking Status This section includes the most current smoking, or tobacco-related health factor, from the [place] facility where the Encounter took place. Date/Time Current Smoking Status Comment Tristan ity Oct 17, 2023 04:53 PM ORYX ADMIT TOBACCO SCREEN NO [facility] Tobacco Use History This section includes a history of the smoking, or tobacco-related health factors, that were collected on or before the date of the Encounter. The data comes from the [place] facility where the Encounter took place. Date/Time Smoking Status/Tobacco Use Comment F acility Oct 17, 2023 03:00 PM ORYX ADMIT TOBACCO SCREEN NO [facility] Dec 31, 2021 03:07 PM ORYX ADMIT TOBACCO SCREEN NO [facility] Apr 06, 2017 11:33 PM QUIT TOBACCO >7 YEARS AGO [facility] Mar 21, 2017 04:29 AM QUIT TOBACCO >7 YEARS AGO [facility] Jan 20, 2014 09:56 AM QUIT TOBACCO >7 YEARS AGO [facility] Jan 02, 2013 01:23 PM QUIT TOBACCO >7 YEARS AGO [facility] May 25, 2010 01:35 PM LIFETIME NON-USER OF TOBACCO [facility] Aug 17, 2009 01:04 PM QUIT TOBACCO >12 M O & <7 YRS AGO [facility] Sep 17, 2008 01:34 PM QUIT TOBACCO >12 M O & <7 YRS AGO [facility] Sep 20, 2006 10:57 AM QUIT TOBACCO >12 M O & <7 YRS AGO [facility] Jun 05, 2006 10:49 AM CURRENT NON-TOBACC O USER-HX OF USE [facility] Jun 05, 2006 10:49 AM TOBACCO TERMINATION STAGE [facility] Jul 14, 2005 11:00 AM CURRENT NON-TOBACC O USER-HX OF USE [facility] Jul 14, 2005 11:00 AM TOBACCO TERMINATION STAGE [facility] Oct 23, 2004 04:56 PM CURRENT NON-TOBACC O USER-HX OF USE [facility] Oct 23, 2004 04:56 PM TOBACCO ACTION STAGE [facility] Apr 07, 2004 10:58 AM CURRENT NON-TOBACC O USER-HX OF USE [facility] Apr 07, 2004 10:58 AM TOBACCO MAINTENANCE STAGE [facility] December 18, 2002 11:17 AM CURRENT TOBACCO USER [facility] December 18, 2002 11:17 AM TOBACCO USE [facility] Apr 07, 2002 02:25 PM CURRENT NON-TOBACC O USER-RECENTLY QUIT quit 3 mo ago [facility] Apr 07, 2002 02:25 PM TOBACCO USE quit 3 mo ago [facility] Nov 19, 2001 10:50 AM CURRENT TOBACCO USER [facility] Jul 16, 2001 08:35 AM CURRENT TOBACCO USER [facility] Jun 18, 2001 08:31 AM CURRENT TOBACCO USER [facility] Jun 18, 2001 08:31 AM TOBACCO USE Dominic [facility] Advance Directives: All historical and current Section Date Range: From patient's date of to the date document was created. This section includes ALL of a patient's completed or amended [place] Advance and Rescinded Directives. The entries below indicate that a directive exists for the patient, but an actual copy is not included with this document. The data comes from all [place] facilities. Date Advance Directives Provider Source Feb 18, 2018 ADVANCE DIRECTIVE DISCUSSION EMMETT CAMILO [facility] Radiology Reports: +/- 30 [...] the Encounter. The data comes from all [place] treatment facilities. Date/Time Radiology Report Provider Source Jan 01, 2024 09:[address] THORAX, DIAGNOS TIC W/O CONTRAST: DUNIAMAURILIO BREWSTERSSE [id number] -[id number] M Exm Date: JAN 01, 2024@09:49 Req Phys: JENNIFER PALACIO Loc: [facility]-PULMONARY CONSULT (Rossyq'g Tracy Img Loc: [facility]CT IMAGING [facility] Service: [facility], [facility] [address] [place] [address] (Case [id number] COMPLETE) CT THORAX, DIAGNOSTIC W/O CONTRAS(CT Detailed) CPT:09922 Reason for Study: RUL PNA cleared??? Clinical History: Responsible Attending: Haylie Attending Contact Number: [phone] Resident Contact Number: Allergies listed in CPRS chart: LISINOPRIL, FENTANYL, COCONUTS Creatinine: CREATININE 0.91 mg/dL 10/19/2023 06:00 /eGFR: STL EGFR (within one year). CREATININE 0.91 mg/dL (10/19/23 06:00) Wt: 216.1 lb [98.02 kg] (11/14/2023 09:07) History of: Renal failure, chronic or acute renal disease: NO Report Status: Verified Date Reported: JAN 01, 2024 Date Verified: JAN 01, 2024 Medical Esthetician E-Sig:/ES/Pooja Plasencia MD Report: CASE #: [id number] DATE:01/01/2024 10:39 AM CLINICAL HISTORY:RUL PNA cleared??? COMPARISON: 10/17/2023, 06/18/2017, 06/03/2016 TECHNIQUE: CT THORAX, DIAGNOSTIC W/O CONTRAST FINDINGS: Interval resolution of right upper lobe pneumonia just above the major fissure. Right upper lobe foci of nodular scarring centered on images 77 and 90 of series 4 are not suspiciously changed in comparison to the 2016 study favoring a benign process. No new or enlarging nodules are identified. Mild emphysema. Some fibrotic changes primarily in the right lower lobe but also in the periphery of the left lower lobe. No pleural or pericardial effusion. No mediastinal nor hilar lymphadenopathy. Previous cholecystectomy indicated by surgical clips. No acute upper abdominal process. 18 mm probable hyperdense cyst has attenuation of approximately 30 HU appears to been present on the 2016 examination at which time it measured 16 mm with attenuation of about 60 HU along the anterior margin of the left kidney appears to been present on the 2016 examination. Please refer to abdominal CT dated 08/14/2023 for further characterization. Impression: Resolution of right upper lobe pneumonia. Nodules more rostrally situated in the right lung are similar to the 2016 examination. No new or enlarging nodules are identified. Emphysema with some fibrotic changes, stable. Apparent hyperdense cyst along the anterior margin left kidney, not suspiciously changed. Please refer to abdominal CT dated 08/14/2023 for further characterization. Primary Interpreting Staff: Pooja Plasencia MD, Radiologist (Medical Esthetician) /POOJA WHEELER [facility] November 30, 2023 03:[address] ABDOMEN AND PEL VIS W/CONTRAST: MAURILIO DUQUE [id number] -[id number] M Exm Date: NOVEMBER 30, 2023@15:53 Req Phys: JENNIFER PALOMINO Loc: [facility]-EMERGENCY DEPT 2ND SHIFT (R Img Loc: [facility]CT IMAGING [facility] Service: Unknown [facility], [facility] [address] [place] [address] (Case [id number] COMPLETE) CT ABDOMEN AND PELVIS W/CONTRAST (CT Detailed) CPT:24816 Contrast Media : Non-ionic Iodinated Reason for Study: groin pain x 5 days and vomiting, hx of multiple hernia repairs Clinical History: Responsible Attending: Sundeep Attending Contact Number: [phone] Resident Contact Number: pt with multiple hernia [...] 30, 2023 Date Verified: NOVEMBER 30, 2023 Medical Esthetician E-Sig:/ES/MARYLOU JESSICA MD Report: Case: [id number] CT abdomen and pelvis[address] CT axial images [...] Interpreting Staff: MARYLOU JESSICA MD, STAFF RADIOLOGIST (Medical Esthetician) /MARYLOU CABRERA [facility] November 30, 2023 03:[address] 3D RENDERING W INDEP[employer]ENT WORKSTATION POSTPROCESSING: MAURILIO DUQUE [id number] -[id number] M Exm Date: NOVEMBER 30, 2023@15:53 Req Phys: JENNIFER PALOMINO Zully Loc: [facility]-EMERGENCY DEPT 2ND SHIFT (R Img Loc: [facility] IMAG[facility] Service: Unknown [facility], [facility] [address] [place] [address] (Case [id number] COMPLETE) CT 3D RENDERING W INDEPENDENT WOR(CT Detailed) CPT:93343 Reason for Study: GROIN PAIN Clinical History: Responsible Attending: Sundeep Attending Contact Number: [phone] Resident Contact Number: pt with multiple hernia [...] 05, 2023 Date Verified: DECEMBER 05, 2023 Medical Esthetician E-Sig:/ES/MARYLOU JESSICA MD Report: Case: [id number] CT abdomen and pelvis[address] CT axial images [...] Interpreting Staff: MARYLOU JESSICA MD, STAFF RADIOLOGIST (Medical Esthetician) /MARYLOU CABRERA [facility] Encounter Notes: All associated encounter notes This section contains the clinical notes associated to the Encounter. Date/Time Encounter Note(s) Provider Source December 13, 2023 09:24 AM PODIATRY CONSULT: LOCAL TITLE: PODIATRY CONSULT [facility] STANDARD TITLE: PODIATRY CONSULT DATE OF NOTE: DECEMBER 13, 2023@09:24 ENTRY DATE: DECEMBER 13, 2023@09:24:55 AUTHOR: JACKIE CORDERO EXP COSIGNER: URGENCY: STATUS: COMPLETED S: PT PRESENTS TO CLINIC TODAY WITH CHIEF COMPLAINT OF NEEDING A HIGH RISK FOOT EXAM. PT DENIES ANY SYSTEMIC SIGNS OF INFECTION RECENT TRAUMA. PT IS DIABETIC AND IS FOLLOWED BY HIS PCP FOR HIS DM. HE STATES THAT HIS LAST BLOOD SUGAR WAS 110. PT IS COOPERATIVE AND PLEASANT UPON EXAM. HE IS ON ASA DAILY. SYMPTOMS WORSENDED BY: NO DEBRIDEMENT SYMTOMS IMPROVED BY: DEBRIDEMENT PAIN SCALE: 0/10. HEIGHT:74 in [188.0 cm] (09/27/2023 10:37) WEIGHT:219.8 lb [99.70 kg] (11/19/2023 11:49) FAMILY HISTORY: HE DENIES ANY FAMILY HX OF DM, AMPUTATIONS, LUPUS, OR RH. HGA1C:HGA1C 5.8 % 09/12/2022 11:13 ROS: CARDIAC: HE HAS CAD WITH HX OF HEART ATTACK. . VASCULAR: HE DENIES ANY PROBLEMS WITH BLOOD FLOW TO THE FEET OR LEGS. 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 KIDNEY: PT DENIES ANY KIDNEY ISSUES. SKIN: PT DENIES ANY SLOW OR NON-HEALLING WOUNDS. OTHER: STROKE 10 YEARS AGO, HEART ATTACK ABOUT 15 YEARS AGO AND RADIATION THERAPY. ALLERGIES:LISINOPRIL, FENTANYL, COCONUTS SOCIAL HISTORY: PT DENIES DRUG AND MARIJUANA USE. PT DENIES ANY TOBOACCO USE. PT SMOKED 1 PACK PER DAY FOR 40 YEARS AND QUIT 25 YEARS AGO. HE DENIES AND ETOH USE.PT IS LIVING AT HOME WITH SOMEONE. PT IS NO LONGER WORKING. RELEVANT PAST SURGICAL HISTORY: PT DENIES ANY SURGERIES TO THE FEET OR ANKLES. 6 TRI-GENIAL SURGERIES, 3-4 HERNIA SURGERY, GALLBLADDER, HIATIAL HERNIA, APPENDECTOMY. PAST MEDICAL HISTORY: 1) Benign essential hypertension (SNOMED CT 9614894) 2) Left trigeminal neuralgia (SNOMED CT [id number]) 3) GERD - Gastro-esophageal reflux disease (SNOMED CT 814404210) 4) Chronic obstructive lung disease (SNOMED CT 26462907) 5) LBP - Low back pain (SNOMED CT 822352769) 6) Knee pain (SNOMED CT 54022143) 7) Chest pain 8) Hip joint pain 9) Candidiasis of the esophagus 10) Parotitis 11) Cervicalgia 12) Long-term current use of opiate analgesic drug 13) Diabetes Mellitus Type 2 (SCT 49494884) 14) Inguinal hernia 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 DISCONTINUE BEFORE GETTING XRAY DYE. 12) ONDANSETRON 4MG ORAL DISINTEGRATING TAB TAKE ONE ACTIVE TABLET UNDER THE TONGUE EVERY EIGHT(8) HOURS NEEDED FOR NAUSEA/VOMITING 13) PANTOPRAZOLE NA 40MG EC TAB TAKE ONE TABLET BY MOUTH ACTIVE TWO TIMES A DAY BEFORE MEALS TO LOWER STOMACH ACID - TAKE 30 MINUTES BEFORE MEAL(S) 14) PREGABALIN 200MG ORAL CAP TAKE ONE CAPSULE BY MOUTH ACTIVE THREE TIMES A DAY FOR NERVE PAIN 15) PSYLLIUM ORAL PWD MIX AND DRINK 1 TEASPOONFUL BY ACTIVE MOUTH ONCE A DAY FOR FIBER SUPPLEMENTATION MIX IN GLASS OF WATER/JUICE. FLAVOR SUBSTITUTIONS MAY/WILL OCCUR AND SPECIFIC VARIETIES WILL NOT BE PROVIDED. 16) TOPIRAMATE 50MG TAB TAKE ONE TABLET BY MOUTH TWICE A ACTIVE DAY FOR SEIZURES OR MIGRAINE PROPHYLAXIS 17) VALSARTAN 320MG TAB TAKE ONE TABLET BY MOUTH ONCE A ACTIVE (S) DAY TO LOWER BLOOD PRESSURE O: PT IS ALERT AND ORIENTED X 3 AND IN NAD. HE IS AMBULATING WITHOUT ASSISTANCE. HE IS WEARING HIS PERSONAL SHOES ON EXAM. VASC: PALPABLE PULSES, NO ISCHEMIC CHANGES NOTED ON EXAM. CAPP REFILL LESS THAN 3 SECONDS. NO DIGITAL HAIR GROWTH NOTED. FEET ARE WARM TO TOUCH. NEURO: GROSSLY INTACT, PROTECTIVE LIGHT SENSATION INTACT PER SEMMES GUILLAUME 5.07 MONOFILAMENT TO ALL SITES TESTED B/L. DERM: NAILS MILDLY ELONGATED THICKENED, DYSTROPHIC AND MYCOTIC X 10 WITH SIGNFICANT SUBUNGAL DEBRIES. NO ASCENDING CELLULITIS. NO ERYTHAMA, NO DRAINAGE, AND NO OPEN WOUNDS NOTED ON EXAM. B/L HALLUX NAILS MALFORMED AND GRYPHOTIC. MUS/SK: GOOD MUSCLE STRENGTH IN ALL 4 QUADRANTS. NO DELL NOTED IN THE ACHILLES. ROM AT THE ANKLE WITHIN NORMAL ROM. NO PAIN ON EXAM. UPON STANCE PES CAVUS FOOT TYPE IS NOTED. A/P 1 ONYCHOMYCOSIS/ MANUALLY DEBRIDED X 1O IN ORDER TO PREVENT POSSIBLE SECONDARY INFECTION. BETADINE APPLIED ROUTINELY. 2 DM/ PT EDUCATION. PT TO F/U WITH PCP. 3 ONYCHOGRYPHOSIS/ MANUALLY DEBRIDED X 2. PT EDUCATION. 4 PES CAVUS B/L/ PT TO CONTINUE IN HIS CUSTOM MADE INSERTS WITH PRECAUTIONS. TIME SPENT: 45 MIN. PT DISCHARGED FROM THE PODIATRY CLINIC AT THIS TIME. DISCUSSED TREATMENT OPTIONS WITH PATIENT AND PATIENT ADVISED TO GO TO THE ER IF ANY INCREASE IN PAIN REDNESS OR ERYTHEMA IS NOTED. PT STATES UNDERSTANDING. MEDICATION/RECONCILLIATION: REVIEWED AND RECONCILLED ALL PODIATRIC GENERATED MEDICATIONS. PER [place] PODIDATRY DIRECTIVE 1122 PT IS CONSIDERED TO BE MILD RISK. PAVE FOOT EXAM Incorrect Diagnosis PACT team notified of the following: This patient does not have sensory neuropathy. Comment: SENSATION INTACT TO ALL SIGHTS PER MONOFILAMENT. /radha/ JACKIE CORDERO Staff Physician, Podiatry Signed: 12/13/2023 10:05 JACKIE CORDERO [facility]
--- OUTSIDE RECORDS SUMMARY | 2024-11-02 11:54 | XMS_ITS | Encounter Summary ---
Author Name [facility] Organization [facility] Address [address] [place] [address] Care Team Providers Care Cytometry Technologist Name Role Phone NATALIO BRIDGES Primary Care [...] PART A Oct 28, 2001 PART A [id number] Petra DUQUE PATIENT MEDICARE (WNR) MEDICARE (M) PART B Oct 28, 2001 PART B [id number] Petra DUQUE PATIENT MEDICARE (WNR) MEDICARE (M) PART A Oct 28, 2001 PART A [id number] Petra DUQUE PATIENT Selected Encounter This section includes the information on record at ID for the Encounter. Date/Time Encounter Type Encounter Description Reason Pro vider Source Oct 07, 2024 11:57 AM Outpatient Encounter [facility] Encounter Template Text not used by [facility] Plan of Treatment: Future Appointments (+ 6 months) and Future Tests (+/- 45 days) The Plan of Treatment section includes future care activities for the patient from all [facility]. This section includes future appointments and future orders which are active, pending or scheduled. Future Appointments This section includes appointments that were scheduled to occur 6 months from the date of the Encounter, up to a maximum of 20 appointments. The data comes from all [facility]. Appointment Date/Time Appointment Type Appointme nt Facility Name Oct 27, 2024 11:15 AM AMBULATORY - MEDICINE [facility] Nov 15, 2024 11:00 AM AMBULATORY - NONE [facility] Nov 17, 2024 01:30 PM AMBULATORY - MEDICINE [facility] Nov 21, 2024 08:30 AM AMBULATORY - MEDICINE [facility] December 16, 2024 01:00 PM AMBULATORY - NONE [facility] Feb 05, 2025 10:00 AM AMBULATORY - SURGERY [facility] Mar 19, 2025 12:40 PM AMBULATORY - MEDICINE [facility] Active, Pending, and Scheduled Orders This section includes a listing of several types of active, pending, and scheduled orders, including clinic medications orders, diagnostic test orders, procedure orders and consult orders; where the start date of the order is 45 days before the date of the Encounter or 45 days after the date of theEncounter. The data comes from all [facility]. Test Date/Time Test Type Test Details Facility Name Oct 06, 2024 12:03 PM Consult Order [facility] Cons Gasket Former's Choice [facility] Social History: Smoking Status (Most current) and Tobacco Use (All prior to encounter date) This section includes the most current, and the historical, smoking and tobacco- related health factors from the ID facility where the Encounter took place. Current Smoking Status This section includes the most current smoking, or tobacco-related health factor, from the ID facility where the Encounter took place. Date/Time Current Smoking Status Kana pastrana Oct 17, 2023 04:53 PM ORYX ADMIT TOBACCO SCREEN NO [facility] Tobacco Use History This section includes a history of the smoking, or tobacco-related health factors, that were collected on or before the date of the Encounter. The data comes from the ID facility where the Encounter took place. Date/Time Smoking Status/Tobacco Use Comment F acility Oct 17, 2023 03:00 PM ORYX ADMIT TOBACCO SCREEN NO [facility] Dec 31, 2021 03:07 PM ORYX ADMIT TOBACCO SCREEN NO [facility] Apr 06, 2017 11:33 PM QUIT TOBACCO >7 YEARS AGO [facility] Mar 21, 2017 04:29 AM QUIT TOBACCO >7 YEARS AGO [facility] Jan 20, 2014 09:56 AM QUIT TOBACCO >7 YEARS AGO [facility] Jan 02, 2013 01:23 PM QUIT TOBACCO >7 YEARS AGO [facility] May 25, 2010 01:35 PM LIFETIME NON-USER OF TOBACCO [facility] Aug 17, 2009 01:04 PM QUIT TOBACCO >12 M O & <7 YRS AGO [facility] Sep 17, 2008 01:34 PM QUIT TOBACCO >12 M O & <7 YRS AGO [facility] Sep 20, 2006 10:57 AM QUIT TOBACCO >12 M O & <7 YRS AGO [facility] Jun 05, 2006 10:49 AM CURRENT NON-TOBACC O USER-HX OF USE [facility] Jun 05, 2006 10:49 AM TOBACCO TERMINATION STAGE [facility] Jul 14, 2005 11:00 AM CURRENT NON-TOBACC O USER-HX OF USE [facility] Jul 14, 2005 11:00 AM TOBACCO TERMINATION STAGE [facility] Oct 23, 2004 04:56 PM CURRENT NON-TOBACC O USER-HX OF USE [facility] Oct 23, 2004 04:56 PM TOBACCO ACTION STAGE [facility] Apr 07, 2004 10:58 AM CURRENT NON-TOBACC O USER-HX OF USE [facility] Apr 07, 2004 10:58 AM TOBACCO MAINTENANCE STAGE [facility] December 18, 2002 11:17 AM CURRENT TOBACCO USER [facility] December 18, 2002 11:17 AM TOBACCO USE [facility] Apr 07, 2002 02:25 PM CURRENT NON-TOBACC O USER-RECENTLY QUIT quit 3 mo ago [facility] Apr 07, 2002 02:25 PM TOBACCO USE quit 3 mo ago [facility] Nov 19, 2001 10:50 AM CURRENT TOBACCO USER [facility] Jul 16, 2001 08:35 AM CURRENT TOBACCO USER [facility] Jun 18, 2001 08:31 AM CURRENT TOBACCO USER [facility] Jun 18, 2001 08:31 AM TOBACCO USE [facility] Advance Directives: All historical and current Section Date Range: From patient's date of to the date document was created. This section includes ALL of a patient's completed or amended [facility] Advance and Rescinded Directives. The entries below indicate that a directive exists for the patient, but an actual copy is not included with this document. The data comes from all ID facilities. Date Advance Directives Provider Source Feb 18, 2018 ADVANCE DIRECTIVE DISCUSSION EMMETT CAMILO [facility] Encounter Notes: All associated encounter notes This section contains the clinical notes associated to the Encounter. 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 Upon review, the following determination has been made: Service has been approved. (Authorization #[id number]) Should you have questions, please contact us at [phone] to speak with a patient air deodorizer servicer. As a reminder, if applicable, return medical records within 30 days for routine services. Sincerely, DARRYL MORLEY [facility] DARRYL NOYOLA [facility]
--- OUTSIDE RECORDS SUMMARY | 2024-11-02 11:54 | XMS_ITS | Encounter Summary ---
Author Name [facility] [place] [facility] [place] Address [address] [place] [address] Care Team Providers Care Closing Specialist Name Role Phone NATALIO BRIDGES Primary Care [...] PART A Oct 28, 2001 PART A [id number] [phone] Petra DUQUE PATIENT MEDICARE (WNR) MEDICARE (M) PART B Oct 28, 2001 PART B [id number] [phone] Petra DUQUE PATIENT MEDICARE (WNR) MEDICARE (M) PART A Oct 28, 2001 PART A [id number] Petra DUQUE PATIENT Selected Encounter This section includes the information on record at [place] for the Encounter. Date/Time Encounter Type Encounter Description Reason Provider Source Jan 03, 2024 10:00 AM OFFICE O/P EST MOD 30 MIN GENERAL SURGERY ICD-10-CM K40.91 Unilateral inguinal hernia, w/o obst or gangrene, recurrent STEVEN WASHBURN Jesus Alberto Klein III IHE Encounter Template Text not used by [place] Assessments - Encounter Diagnoses This section includes the primary and secondary diagnoses documented for the Encounter. Date/Time Primary/Secondary Diagnosis Diagnosis Name Provider Source Jan 03, 2024 11:27 AM PRIMARY Unilateral inguinal hernia, w/o obst or gangrene, recurrent KATIECHRISTINE [facility] Plan of Treatment: Future Appointments (+ 6 months) and Future Tests (+/- 45 days) The Plan of Treatment section includes future care activities for the [facility] [place] [facility] This section includes future appointments and future orders which are active, pending or scheduled. Future Appointments This section includes appointments that were scheduled to occur 6 months from the date of the Encounter, up to a maximum of 20 appointments. The data comes from all [place] treatment facilities. Appointment Date/Time Appointment Type Appointme nt Facility Name Jan 14, 2024 08:30 AM AMBULATORY - MEDICINE [facility] Jan 14, 2024 09:30 AM AMBULATORY - MEDICINE [facility] Jan 23, 2024 11:30 AM AMBULATORY - REHAB MEDICIN E [facility] Feb 11, 2024 10:00 AM AMBULATORY - SURGERY [facility] Feb 22, 2024 10:30 AM AMBULATORY - MEDICINE [facility] Feb 27, 2024 08:15 AM AMBULATORY - MEDICINE [facility] Mar 26, 2024 11:00 AM AMBULATORY - NONE [facility] Mar 27, 2024 12:40 PM AMBULATORY - MEDICINE [facility] Apr 10, 2024 10:30 AM AMBULATORY - SURGERY . [facility] Apr 22, 2024 10:00 AM AMBULATORY - SURGERY [facility] May 02, 2024 09:00 AM AMBULATORY - NONE . [facility] May 06, 2024 03:30 PM AMBULATORY - MEDICINE [facility] May 19, 2024 11:00 AM AMBULATORY - MEDICINE [facility] May 22, 2024 09:30 AM AMBULATORY - SURGERY [facility] May 27, 2024 09:30 AM AMBULATORY - NONE [facility] Morillo [facility] Active, Pending, and Scheduled Orders This section includes a listing of several types of active, pending, and scheduled orders, including clinic medications orders, diagnostic test orders, procedure orders and consult orders; where the start date of the order is 45 days before the date of the Encounter or 45 days after the date of theEncounter. The data comes from all [place] treatment facilities. Test Date/Time Test Type Test Details Facility Name Jan 15, 2024 12:00 AM Laboratory - Chemistry Order CBC BLOOD [facility] Jan 15, 2024 12:00 AM Laboratory - Chemistry Order HGA 1C BLOOD [facility] Lab Results: +/- 30 days of the encounter This section includes the Chemistry and Hematology Lab Results on record with [place] for the patient. Radiology Reports and Pathology Reports are provided separately, in subsequent sections. Lab Results This section contains the Chemistry/Hematology Results that were resulted 30 days before or 30 daysafter the date of the Encounter. Date/Time Source Result Type Result - Unit Interpretation Reference Range Comment Jan 11, 2024 09:[address] [facility] TSH W/ REFLEX FT4 (STL) Specimen Type: PLASMA Comment: K result may show a positive bias due to hemolysis. Specimen slightly hemolyzed. Ordering Provider: FERNANDO BRIDGES Report Released Date/Time: December 18, 2023 03:38 PM Reporting Lab: [facility] [address] [facility] [address] Performing Lab: [facility] [address] [facility] [address] TSH 2.309 u[IU]/mL 0.47-5 Jan 11, 2024 09:[address] [facility] VITAMIN D, 25-HYDROXY Specimen Type: SERUM Comment: The listed sex of this patient may not be a typical indication for this test. Therefore, reference ranges or interpretive criteria listed may not be valid. Clinical correlation suggested. Ordering Provider: FERNANDO BRIDGES Report Released Date/Time: December 18, 2023 03:38 PM Reporting Lab: [address] [address] Performing Lab: [address] [address] VITAMIN D, 25-HYDROXY 61.0 ng/mL 30-96 Jan 11, 2024 09:10 AM [facility] LIPID PANEL (STL) Specimen Type: PLASMA Comment: K result may show a positive bias due to hemolysis. Specimen slightly hemolyzed. Ordering Provider: FERNANDO BRIDGES Report Released Date/Time: December 18, 2023 03:38 PM Reporting Lab: [address] [address] Performing Lab: [address] [address] CHOLESTEROL 182 mg/dL 0-200 TRIGLYCERIDE 222 mg/dL H 0-150 CALCULATED LDL 104 mg/dL HDL(New) 34 mg/dL L >40 Jan 11, 2024 09:10 AM [facility] COMPREHENSIVE METABOLIC PANEL Specimen Type: PLASMA Comment: K result may show a positive bias due to hemolysis. Specimen slightly hemolyzed. Ordering Provider: FERNANDO BRIDGES Report Released Date/Time: December 18, 2023 03:38 PM Reporting Lab: [address] [address] Performing Lab: [address] [address] CREATININE 1.20 mg/dL 0.7-1.3 UREA NITROGEN 16.2 [...] 63.1 >60 Jan 11, 2024 09:10 AM [facility] MICRAL/CREAT PROFILE (STL) Specimen Type: URINE No comment entered. Ordering Provider: FERNANDO BRIDGES Report Released Date/Time: December 18, 2023 03:38 PM Reporting Lab: [facility] [address] [facility] [address] Performing Lab: [address] [address] URINE ALBUMIN (PB-STL) 12.4 mg/L uACR (STL) 6 mg/g 0-29 CREATININE URINE/OTHERS 193.2 mg/dL H 63-166 Jan 11, 2024 09:10 AM [facility] PROST. SPECIFIC AG.(PB-STL) Specimen Type: SERUM Comment: The listed sex of this patient may not be a typical indication for this test. Therefore, reference ranges or interpretive criteria listed may not be valid. Clinical correlation suggested. Ordering Provider: FERNANDO BRIDGES Report Released Date/Time: December 18, 2023 03:38 PM Reporting Lab: [facility] [address] [facility] [address] Performing Lab: [address] [address] PROST. SPECIFIC AG.(PB-STL) 1.518 ng/mL 0-4 Vital Signs: All taken on the encounter date This section contains inpatient and outpatient Vital Signs collected on the date of the Encounter. Date/Time Temperature Pulse Blood Pressure Respiratory Rate SP02 Pain Height Weight Body Mass Index Source Jan 03, 2024 09:54 AM 97.7 73 155/75 20 98 8 74 220.7 28 [facility] Social History: Smoking Status (Most current) and Tobacco Use (All prior to encounter date) This section includes the most current, and the historical, smoking and tobacco- related health factors from the [place] facility where the Encounter took place. Current Smoking Status This section includes the most current smoking, or tobacco-related health factor, from the [place] facility where the Encounter took place. Date/Time Current Smoking Status Comment Tristan pastrana Oct 17, 2023 04:53 PM ORYX ADMIT TOBACCO SCREEN NO [facility] Tobacco Use History This section includes a history of the smoking, or tobacco-related health factors, that were collected on or before the date of the Encounter. The data comes from the [place] facility where the Encounter took place. Date/Time Smoking Status/Tobacco Use Comment Alejandro romero Oct 17, 2023 03:00 PM ORYX ADMIT TOBACCO SCREEN NO [facility] Dec 31, 2021 03:07 PM ORYX ADMIT TOBACCO SCREEN NO [facility] Apr 06, 2017 11:33 PM QUIT TOBACCO >7 YEARS AGO [facility] Mar 21, 2017 04:29 AM QUIT TOBACCO >7 YEARS AGO [facility] Jan 20, 2014 09:56 AM QUIT TOBACCO >7 YEARS AGO [facility] Jan 02, 2013 01:23 PM QUIT TOBACCO >7 YEARS AGO [facility] May 25, 2010 01:35 PM LIFETIME NON-USER OF TOBACCO [facility] Aug 17, 2009 01:04 PM QUIT TOBACCO >12 M O & <7 YRS AGO [facility] Sep 17, 2008 01:34 PM QUIT TOBACCO >12 M O & <7 YRS AGO [facility] Sep 20, 2006 10:57 AM QUIT TOBACCO >12 M O & <7 YRS AGO [facility] Jun 05, 2006 10:49 AM CURRENT NON-TOBACC O USER-HX OF USE [facility] Jun 05, 2006 10:49 AM TOBACCO TERMINATION STAGE [facility] Jul 14, 2005 11:00 AM CURRENT NON-TOBACC O USER-HX OF USE [facility] Jul 14, 2005 11:00 AM TOBACCO TERMINATION STAGE [facility] Oct 23, 2004 04:56 PM CURRENT NON-TOBACC O USER-HX OF USE [facility] Oct 23, 2004 04:56 PM TOBACCO ACTION STAGE [facility] Apr 07, 2004 10:58 AM CURRENT NON-TOBACC O USER-HX OF USE [facility] Apr 07, 2004 10:58 AM TOBACCO MAINTENANCE STAGE [facility] December 18, 2002 11:17 AM CURRENT TOBACCO USER [facility] December 18, 2002 11:17 AM TOBACCO USE [facility] Apr 07, 2002 02:25 PM CURRENT NON-TOBACC O USER-RECENTLY QUIT quit 3 mo ago [facility] Apr 07, 2002 02:25 PM TOBACCO USE quit 3 mo ago [facility] Nov 19, 2001 10:50 AM CURRENT TOBACCO USER [facility] Jul 16, 2001 08:35 AM CURRENT TOBACCO USER [facility] Jun 18, 2001 08:31 AM CURRENT TOBACCO USER [facility] Jun 18, 2001 08:31 AM TOBACCO USE [facility] Advance Directives: All historical and current Section Date Range: From patient's date of to the date document was created. This section includes ALL of a patient's completed or amended [place] Advance and Rescinded Directives. The entries below indicate that a directive exists for the patient, but an actual copy is not included with this document. The data comes from all [facility]. Date Advance Directives Provider Source Feb 18, 2018 ADVANCE DIRECTIVE DISCUSSION EMMETT CAMILO [facility] Radiology Reports: +/- 30 days of [...] the Encounter. The data comes from all [place] treatment facilities. Date/Time Radiology Report Provider Source Jan 14, 2024 07:59 AM NM MYOCARDIAL P SP ECT STRESS/REST-P: MAURILIO DUQUE [id number] M Exm Date: JAN 14, 2024@07:59 Req Phys: JEANNETTE PEÑA Pat Loc: [facility] (Req'g Img Loc: [facility] Service: Unknown [facility], [facility] [address] [place] [address] (Case 180 COMPLETE) NM MYOCARDIAL PERF SPECT STRESS/R(NM Detailed) CPT:03100 Reason for Study: CHEST PAIN (Case 181 COMPLETE) TC-99M TETROFOSMIN (MYOVIEW) (NM Detailed) CPT:A9502 (Case 182 COMPLETE) TC-99M TETROFOSMIN (MYOVIEW), PE(NM Detailed) CPT:A9502 (Case 183 COMPLETE) NON-HEU TC-99M ADD-ON PER STUDY D(NM Detailed) CPT:Q9969 (Case 347 COMPLETE) REGADENOSON INJECTION (NM Detailed) CPT:J2785 Clinical History: CHEST PAIN Report Status: Verified Date Reported: JAN 14, 2024 Date Verified: JAN 14, 2024 Electrician Telephone E-Sig:/ES/Bill Fox MD,PhD Report: PATIENT NAME: MAURILIO DUQUE CASE #: [id number], [id number], [id number], [id number], [id number] EXAMINATION: Rest/Lexiscan Stress Gated SPECT Myocardial Imaging [...] of 71%. Diagnostic code: 1000. Dictated by Britton Chacon DO (resident in diagnostic radiology) IBill, have reviewed the images and report and concur with these findings. Primary Interpreting Staff: Bill Fox MD,PhD, Nuclear Medicine Physician (Electrician Telephone) Primary Interpreting Resident: BRITTON CHACON, resident in diagnostic radiology /BILL SAVAGE [facility] Jan 01, 2024 09:[address] THORAX, DIAGNOS TIC W/O CONTRAST: MAURILIO DUQUE [id number] -[id number] M Ex Date: JAN 01, 2024@09:49 Req Phys: JENNIFER PALACIO Loc: [facility]UL[facility] (Req'g Lo Img Loc: [facility]CT IMAGING [facility] Service: [facility], [facility] [address] [place] [address] (Case 1414 COMPLETE) CT THORAX, DIAGNOSTIC W/O CONTRAS(CT Detailed) CPT:21405 Reason for Study: RUL PNA cleared??? Clinical History: Responsible Attending: Haylie Attending Contact Number: [phone] Resident Contact Number: Allergies listed in CPRS chart: LISINOPRIL, FENTANYL, COCONUTS Creatinine: CREATININE 0.91 mg/dL 10/19/2023 06:00 /eGFR: STL EGFR (within one year). CREATININE 0.91 mg/dL (10/19/23 06:00) Wt: 216.1 lb [98.02 kg] (11/14/2023 09:07) History of: Renal failure, chronic or acute renal disease: NO Report Status: Verified Date Reported: JAN 01, 2024 Date Verified: JAN 01, 2024 Electrician Telephone E-Sig:/ES/Pooja Plasencia MD Report: CASE #: [id number] DATE:01/01/2024 10:39 AM CLINICAL HISTORY:RUL PNA cleared??? [...] Primary Interpreting Staff: Pooja Plasencia MD, Radiologist (Electrician Telephone) /POOJA WHEELER [facility] Encounter Notes: All associated encounter notes This section contains the clinical notes associated to the Encounter. Date/Time Encounter Note(s) Provider Source Jan 03, 2024 10:56 AM SURGERY NOTE: LOCAL TITLE: GENERAL SURGERY NOTE STL STANDARD TITLE: SURGERY NOTE DATE OF NOTE: JAN 03, 2024@10:56 ENTRY DATE: JAN 03, 2024@10:56:51 AUTHOR: CHRISTINE WILSON EXP COSIGNER: PALMA WASHBURN III URGENCY: STATUS: COMPLETED GENERAL SURGERY NOTE STL Has ADDENDA GENERAL SURGERY II CLINIC VISIT CHIEF COMPLAINT: R inguinal hernia recurrence HISTORY OF PRESENT ILLNESS: Mr. Duque is a 73 y/o male w/ PMHx of HTN, DM, GERD, COPD and past surgical hx of L orchiectomy, open b/l inguinal hernia repair w/ mesh (11/2022), R inguinal hernia recurrence and open repair w/ mesh (02/2023), and cyst excision on 09/10/23. Patient presents clinic for R inguinal hernia recurrence that he has had since 11/30/23. He presented to the ER on 11/30/23 for [address] abd/pelvis on 11/29 showed right inguinal hernia recurrence. Today, patient reports continuintion of constant pain along inguinal hernia incision site that radiates down to the groin. Patient reports feeling like his rectum has been coming out' during powel movements and increased strain since the onset of symptoms. Since the onset of symptoms, patient's bowel movements have decreased to one movement every 3-4 days, with no changes in caliber or appearance. He rates the pain about 8/10, worse when he stands up, coughing, and moving around. around. He reports trouble passing gas which is accompanied by pain. he also reports trouble urinating. He reports increased frequency of urination at night (4-5x) and incomplete emptying. Along with urination, patient reports pain in the scrotum that ceases after urination. Denies blood in his stool or urine. Denies fever/chills/nausea/vomiting/chest pain/shortness of breath. PAST MEDICAL HISTORY: 1) Benign essential hypertension (SNOMED CT 8621144) 2) Left trigeminal neuralgia (SNOMED CT 36978709990663836) 3) GERD - Gastro-esophageal reflux disease (SNOMED CT 739829473) 4) Chronic obstructive lung disease (SNOMED CT 33896772) 5) LBP - Low back pain (SNOMED CT 194649654) 6) Knee pain (SNOMED CT 68591608) 7) Chest pain 8) Hip joint pain 9) Candidiasis of the esophagus 10) Parotitis 11) Cervicalgia 12) Long-term current use of opiate analgesic drug 13) Diabetes Mellitus Type 2 (SCT 24324125) 14) Inguinal hernia 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 FAM HX: Deferred MEDICATIONS: Active Outpatient Medications (excluding Supplies): Issue Date Status Last Fill Active Outpatient Medications Refills Expiration ===== 1) ALBUTEROL 90MCG (CFC-F) 200D ORAL INHL ACTIVE Issu:11-14-23 Qty: 1 for 30 days Sig: INHALE 1 PUFF Refills: 11 Last:11-14-23 ORAL INHALATION FOUR TIMES A DAY Expr:11-14-24 NEEDED SHAKE WELL. RINSE MOUTHPIECE FREQUENTLY TO PREVENT CLOGGING. 2) ALBUTEROL SO4 0.083% INHL 3ML Qty: 120 ACTIVE Issu:10-02-23 for 30 days Sig: INHALE 1 VIAL Refills: 11 Last:10-03-23 (2.5MG/3ML) BY NEBULIZATION EVERY 6 Expr:10-02-24 HOURS DIRECTED 3) AMLODIPINE BESYLATE 10MG TAB Qty: 90 ACTIVE Issu:06-18-23 for 90 days Sig: TAKE ONE TABLET BY Refills: 2 Last:12-30-23 MOUTH ONCE A DAY FOR HEART/BLOOD Expr:06-18-24 PRESSURE 4) ASPIRIN 81MG EC TAB Qty: 120 for 60 ACTIVE Issu:08-31-23 days Sig: TAKE TWO TABLETS BY MOUTH Refills: 5 Last:09-04-23 ONCE A DAY FOR HEART OR CIRCULATION. Expr:08-31-24 TAKE WITH FOOD. 5) BREZTRI 160/9/4.8MCG/ACT 120D ORAL INHL ACTIVE Issu:04-06-23 Qty: 3 for 90 days Sig: INHALE 2 Refills: 2 Last:08-30-23 PUFFS INHALATION TWICE A DAY Expr:04-06-24 DIRECTED FOR COPD (CLEAN INHALER FOLLOWED BY 2 PRIMING PUFFS ONCE WEEKLY) 6) CARBOXYMETHYLCELLULOSE NA 0.5% OPH SOLN ACTIVE Issu:09-07-23 Qty: 45 for 90 days Sig: INSTILL 1 Refills: 3 Last:09-07-23 DROP IN BOTH EYES FOUR TIMES A DAY Expr:09-07-24 NEEDED FOR DRY EYE(S) 7) CHOLECALCIF 50MCG (D3-2,000UNIT) TAB ACTIVE (S) Issu:08-31-23 Qty: 200 for 90 days Sig: TAKE TWO Refills: 2 Last:02-03-24 TABLETS BY MOUTH ONCE A DAY FOR Expr:08-31-24 VITAMIN D DEFICIENCY. 8) CICLOPIROX 8% TOP SOLN Qty: 6.6 for 30 ACTIVE Issu:08-31-23 days Sig: APPLY LIGHTLY TO AFFECTED Refills: 11 Last:09-02-23 AREA(S) ONCE A DAY (THIN COAT TO THICK Expr:08-31-24 NAILS - FILE DOWN AFTER 1 WEEK) (EXTERNAL USE ONLY) 9) DICLOFENAC NA 1% TOP GEL Qty: 100 for ACTIVE Issu:01-03-23 30 days Sig: APPLY 2 GM TO AFFECTED Refills: 2 Last:08-30-23 AREA(S) FOUR TIMES A DAY FOR Expr:01-04-24 OSTEOARTHRITIS DO NOT EXCEED MORE THAN 16 GRAMS DAILY TO ANY LOWER EXTREMITY JOINT. NOT MORE THAN 8 GRAMS DAILY TO ANY UPPER EXTREMITY JOINT. MAX 32GM/DAY OVER ALL JOINTS. (MEASURE DOSE WITH RULER ATTACHED INSIDE BOX) 10) HYDROCODONE 10/ACETAMINOPHEN 325MG TAB ACTIVE Issu:12-26-23 Qty: 120 for 30 days Sig: TAKE 1 Refills: 0 Last:12-27-23 TABLET BY MOUTH EVERY 6 HOURS Expr:01-25-24 NEEDED FOR PAIN CAUTION: DO NOT EXCEED 4000MG PER DAY ACETAMINOPHEN (APAP) FROM ALL MEDS. DO NOT TAKE WITH OXYCODONE 11) METFORMIN HCL 1000MG TAB Qty: 180 for ACTIVE Issu:08-31-23 90 days Sig: TAKE ONE TABLET BY MOUTH Refills: 2 Last:12-30-23 TWICE A DAY WITH MEALS FOR BLOOD SUGAR Expr:08-31-24 CONTROL. AVOID ALCOHOL. DISCONTINUE BEFORE GETTING XRAY DYE. 12) PANTOPRAZOLE NA 40MG EC TAB Qty: 180 ACTIVE Issu:03-20-23 for 90 days Sig: TAKE ONE TABLET BY Refills: 2 Last:08-30-23 MOUTH TWO TIMES A DAY BEFORE MEALS TO Expr:03-20-24 LOWER STOMACH ACID - TAKE 30 MINUTES BEFORE MEAL(S) 13) PREGABALIN 200MG ORAL CAP Qty: 90 for ACTIVE Issu:08-31-23 30 days Sig: TAKE ONE CAPSULE BY Refills: 3 Last:11-27-23 MOUTH THREE TIMES A DAY FOR NERVE PAIN Expr:03-02-24 14) PSYLLIUM ORAL PWD Qty: 390 for 60 days ACTIVE Issu:03-20-23 Sig: MIX AND DRINK 1 TEASPOONFUL BY Refills: 4 Last:08-30-23 MOUTH ONCE A DAY FOR FIBER Expr:03-20-24 SUPPLEMENTATION MIX IN GLASS OF WATER/JUICE. FLAVOR SUBSTITUTIONS MAY/WILL OCCUR AND SPECIFIC VARIETIES WILL NOT BE PROVIDED. 15) SODIUM FLUORIDE 1.1% TOOTHPASTE Qty: 51 ACTIVE Issu:12-17-23 for 30 days Sig: USE DIRECTED BY Refills: 5 Last:12-17-23 MOUTH ONCE A DAY TOOTHPASTE (DO NOT Expr:12-17-24 SWALLOW) 16) TOPIRAMATE 50MG TAB Qty: 180 for 90 ACTIVE Issu:08-31-23 days Sig: TAKE ONE TABLET BY MOUTH Refills: 3 Last:09-02-23 TWICE A DAY FOR SEIZURES OR MIGRAINE Expr:08-31-24 PROPHYLAXIS 17) VALSARTAN 320MG TAB Qty: 90 for 90 days ACTIVE (S) Issu:10-22-23 Sig: TAKE ONE TABLET BY MOUTH ONCE A Refills: 1 Last:02-06-24 DAY TO LOWER BLOOD PRESSURE Expr:10-22-24 ALLERGIES: LISINOPRIL, FENTANYL, COCONUTS ROS: Review of systems as per HPI and additionally notable for Constitutional: No fever, No weakness/ fatigue Cardiovascular: No palpitations. Positive for chest pain (reports that he is following up with PCP) Respiratory: No shortness of breath, No cough Genitourinary: Positive for polyuria, dysuria, incomplete bladder emptying. Denies hematuria. Gastrointestinal: Positive for conspiation. No diarrhea or bleeding. Neurology: No headache, No tremors Musculoskeletal: No joint pain, No back pain Skin: No rash, No itching Psychiatric: No anxiety, No depression PHYSICAL EXAM: Date Vital Measurement Qualifiers 01/03/2024 09:54 Temp F (C) 97.7 (36.5) Pulse 73 Respir 20 BP 155/75 Ht in (cm) 74 (187.96) Wt lbs (kg)[BMI] 220.7 (100.11)[28*] Pain 8 POx (L/Min)(%) 98 General No acute distress, well-nourished, appropriate HEENT Moist mucous membranes, no lesion or exudate Neck - Supple, no thyromegaly CV Normal rate, regular rhythm Lung- Symmetric chest rise and fall, unlabored breathing on Abd - soft, non-distended. Normoactive bowel sounds. Tender to palpation and percussion in LLQ and RLQ. 1 cm hernia palpated at the lower incisional site. Rectal - Deferred Ext - no edema, no cyanosis Lymph - no cervical or supraclavicular LAD Skin - no rashes, nodules, or jaundice LABS: WBC 8.4 10*3/uL 11/30/2023 13:10 RBC 6.08 [...] IMMATURE PLT FRACTION 5.2 % 11/30/2023 13:10 SODIUM 136 mEq/L 11/30/2023 13:10 POTASSIUM 3.6 mEq/L 10/19/2023 06:00 CHLORIDE 104 mEq/L 11/30/2023 13:10 UREA NITROGEN 13.7 mg/dL 11/30/2023 13:10 CREATININE 0.99 mg/dL 11/30/2023 13:10 CALCIUM 10.0 mg/dL 11/30/2023 13:10 PROTEIN 7.5 g/dL 11/30/2023 13:10 ALBUMIN 4.2 g/dL 11/30/2023 13:10 ALKALINE PHOSPHATASE 91 U/L 11/30/2023 13:10 ALT/SGPT 31 U/L 11/30/2023 13:10 AST/SGOT 29 U/L 11/30/2023 13:10 TOTAL BILIRUBIN 0.6 mg/dL 11/30/2023 13:10 CARBON DIOXIDE 19 L mEq/L 11/30/2023 13:10 GLUCOSE 102 H mg/dL 11/30/2023 13:10 EGFR (CKD-EPI 2020) 79.4 11/30/2023 13:10 INR VALUE 1.0 INR 08/14/2023 13:38 PROTIME 11.1 sec 08/14/2023 13:38 IMAGING: Impression for CT ABDOMEN AND PELVIS W/CONTRAST, 11/30/23, case [id number] No acute process in the abdomen and pelvis. No Impressions found Impression for ABDOMEN-KUB, 01/02/13, case [id number] Mild spondylosis L3, L4 vertebral bodies. IMAGING IMPRESSION SELECTED No selection items chosen for this component. PROGRESS NOTES SELECTED No data available for: CAROTID U/S EVALUATION MA Date Procedure CPT Status Case # 11/30/2023 CT ABDOMEN AND PELVIS W/CONTRAST [id number] Verified 4658 No acute process in the abdomen and pelvis. 08/14/2023 CT ABDOMEN AND PELVIS W/CONTRAST [id number] Verified 607 Right inguinal region cystic hypodensity measuring 2 cm diameter and soft tissue stranding probably related to surgery. ASSESSMENT/PLAN: Mr. Duque is a 73 y/o male w/ PMHx of HTN, DM, GERD, COPD and past surgical hx of L orchiectomy, open b/l inguinal hernia repair w/ mesh (11/2022), R inguinal hernia recurrence and open repair w/ mesh (02/2023), and cyst excision on 09/10/23. Patient presents clinic for R inguinal hernia recurrence most likely due to straining from constipation and possible BPH given patient's lower urinary tract symptoms. Patient was educated robotic laparoscopic hernia repair procedure and its risks hernia inluding, but not limited to, hernia recurrence and injury to nearby structures. To reduce risk of recurrence of inguinal hernia due to bowel and urinary straining and improve patient's current pain: Plan to refer patient to urology and prescribe tamulosin for patient's possible BPH and encourage good bowel hygeine. Plan to encourage increased fiber intake and prescribe fiber every other day for 2 weeks then take fiber every day after. Plan to prescribe miralax daily. Patient was encouraged to als increase hydration. FUTURE APPOINTMENTS: 01/14/2024 08:30 [facility]NUCLEAR MED CARDIOLOGY 01/14/2024 09:30 [facility]CARDIOLOGY STRESS 02/11/2024 10:00 [facility]OPTOMETRY 9 02/22/2024 10:30 [facility]CARDIOLOGY BANQUET PILOT 1 03/27/2024 12:40 [facility]PULMONARY LOISELLE 05/19/2024 11:00 [facility]NOCO PACT 1 PCP 09/04/2024 13:30 [facility] 12/16/2024 13:00 [facility]DENTAL HYG 1 /es/ CHRISTINE WILSON Signed: 01/03/2024 11:31 /radha/ Palma Washburn III, MD [facility] General Surgery Attending Cosigned: 01/03/2024 13:26 01/03/2024 ADDENDUM STATUS: COMPLETED The patient was seen on:01/03/24 The student acted as scribe. I performed my own history and physical exam. We have discussed the patient and I agree with the above. I have reviewed the patient's prior notes, pertinent labs and imaging reports, and personally reviewed relevant imaging. 73 year-old male with recurrent right inguinal pain and recurrent right inguinal hernia following previous bilateral open inguinal hernia repairs and right open recurrent inguinal hernia repair. He had resolution of bulge and pain each time but now his bulge and groin discomfort have recurred along with a small right inguinal hernia seen on recent CT. I counseled him that his straining with urination and bowel movements is likely contributing significantly to his recurrences. I would like these better controlled prior to another recurrent repair, which I would do robotically to give a posterior repair. I have consulted urology for his lower urinary tract symptoms (LUTS) and started on 0.4 Tamsulosin in the meantime. I have also counseled him on bowel regimen including fiber, hydration, miralax, and good stooling habits. I have also consulted physical therapy for pelvic floor PT given his symptoms of pelvic floor dysfunction. Follow-up in 3 months to re-evaluate for surgery. /radha/ Palma Washburn III, MD [facility] General Surgery Attending Signed: 01/03/2024 13:30 01/18/2024 ADDENDUM STATUS: COMPLETED Patient scheduled with Pelvic Floor Therapy 01/22. Instructed to keep up on Pelvic Floor Therapy until he is seen for follow up in Surg II clinic on 04/10/24. Holding surgery date for 05/02/24 for Robotic Recurrent Right Inguinal Hernia Repair with Mesh; patient aware of date. /radha/ Shannon Esquivel PA-C General Surgery Physician Wood Engraver Signed: 01/18/2024 14:50 [facility]
--- OUTSIDE RECORDS SUMMARY | 2024-11-02 11:54 | XMS_ITS | Clinical Summary ---
Author Organization [facility] Address [address] [place] [address] Care Team Providers Care Emergency Generator Mechanic Name Role Phone Juan Arzola MD Primary Care Provider [phone] Allergies Active Allergy Reactions Criticality Noted Date [...] (05/16/2022): Added automatically from request for surgery [id number] Other male erectile dysfunction 07/14/2020 Trigeminal neuralgia 10/02/2012 Cervico-occipital neuralgia 10/02/2012 Chronic obstructive pulmonary disease 10/02/2012 Hypertension 10/02/2012 Resolved Problems Problem Noted Date Diagnosed Date Resolved Date Hydrocele 06/09/2020 07/14/2020 Encysted hydrocele 06/09/2020 0 Overview (06/09/2020): Added automatically from request for surgery [id number] Immunizations Immunization Administration Dates Next Due Influenza, Trivalent, IM (MDV) 05/17/2016 Surgical History Surgery Date Site/Laterality Comments TRANSURETHRAL RESECTION OF PROSTATE PROSTATE SURGERY APPENDECTOMY HERNIA REPAIR hiatal hernia repair COLONOSCOPY Medical History Medical History Date Comments Hypertension Type 2 diabetes mellitus (HCC) Seizures (HCC) Stroke (HCC) Encysted hydrocele 06/09/2020 Added automat ically from request for surgery [id number] Hydrocele 06/09/2020 Family History Medical History Relation [...] on file Legal Sex Male 12:08 PM [employer]UMAN [employer] INTERN Gender Identity Not on file Sexual Orientation Not on file Obstetrics History Last Filed Vital Signs Vital Sign Reading Time Taken Comments Blood Pressure 142/75 06/08/2022 3:05 PM [employer]UMAN [employer] INTERN Pulse 66 06/08/2022 3:05 PM [employer]UM[employer]OURCES INTERN Temperature 36.6 C (97.9 F) 06/08/2022 3:05 PM [employer]UMAN RESOURCES INTERN Respiratory Rate 14 06/08/2022 3:05 PM HUMAN RESOURCES INTERN Oxygen Saturation 96% 06/08/2022 3:05 PM HUMAN RESOURCES INTERN Inhaled Oxygen Concentration - - Weight 96.4 kg (212 lb 9.6 oz) 06/08/2022 8:53 A M [employer] INTERN Height 188 cm (6' 2 ) 06/08/2022 8:53 AM HUMAN RESOURCES INTERN Body Mass Index 27.3 06/08/2022 8:53 AM HUMAN RESOURCES INTERN Plan of Treatment Health Maintenance Due Date [...] Recently Relevant to Health Maintenance [place]ARE [place] Care Teams Emergency Generator Mechanic Relationship Specialty Start Date End Date Juan rAzola MD [address] [place] [address] PCP - General Internal Medicine 04/29/22
--- OUTSIDE RECORDS SUMMARY | 2024-11-02 11:54 | XMS_ITS | Encounter Summary ---
Author Name [facility] [facility] Address [address] [place] [address] Care Team Providers Care Water Treatment Plant Engineer Name Role Phone NATALIO BRIDGES Primary Care [...] PART A Oct 28, 2001 PART A [id number] Petra DUQUE PATIENT MEDICARE (WNR) MEDICARE ([place]) PART B Oct 28, 2001 PART B [id number] Petra DUQUE PATIENT MEDICARE (WNR) MEDICARE (M) PART A Oct 28, 2001 PART A [id number] [phone] Petra DUQUE PATIENT Selected Encounter This section includes the information on record at [place] for the Encounter. Date/Time Encounter Type Encounter Description Reason Pro vider Source Oct 03, 2024 03:55 PM Outpatient Encounter COMMUNITY CARE CONSULT IHE Encounter Template Text not used by [facility] Plan of Treatment: Future Appointments (+ 6 months) and Future Tests (+/- 45 days) The Plan of Treatment section includes future care activities for the patient from all [place] [facility]. This section includes future appointments and future orders which are active, pending or scheduled. Future Appointments This section includes appointments that were scheduled to occur 6 months from the date of the Encounter, up to a maximum of 20 appointments. The data comes from all [facility]. Appointment Date/Time Appointment Type Appointme nt Facility Name Oct 27, 2024 11:15 AM AMBULATORY - MEDICINE [facility] Nov 15, 2024 11:00 AM AMBULATORY - NONE [facility] Nov 17, 2024 01:30 PM AMBULATORY - MEDICINE [facility] Nov 21, 2024 08:30 AM AMBULATORY - MEDICINE [facility] December 16, 2024 01:00 PM AMBULATORY - NONE [facility] Feb 05, 2025 10:00 AM AMBULATORY - SURGERY [facility] Mar 19, 2025 12:40 PM AMBULATORY - MEDICINE [facility] Active, Pending, and Scheduled Orders This section includes a listing of several types of active, pending, and scheduled orders, including clinic medications orders, diagnostic test orders, procedure orders and consult orders; where the start date of the order is 45 days before the date of the Encounter or 45 days after the date of theEncounter. The data comes from all [facility]. Test Date/Time Test Type Test Details Facility Name Oct 06, 2024 12:03 PM Consult Order COMMUNITY CARE-[facility] DENTAL SPEC Cons Automotive Assembler's Choice [facility] Social History: Smoking Status (Most current) [...] 04:53 PM ORYX ADMIT TOBACCO SCREEN NO [facility] Tobacco Use History This section includes a history of the smoking, or tobacco-related health factors, that were collected on or before the date of the Encounter. The data comes from the [place] facility where the Encounter took place. Date/Time Smoking Status/Tobacco Use Comment F acility Oct 17, 2023 03:00 PM ORYX ADMIT TOBACCO SCREEN NO [facility] Dec 31, 2021 03:07 PM ORYX ADMIT TOBACCO SCREEN NO [facility] Apr 06, 2017 11:33 PM QUIT TOBACCO >7 YEARS AGO [facility] Mar 21, 2017 04:29 AM QUIT TOBACCO >7 YEARS AGO [facility] Jan 20, 2014 09:56 AM QUIT TOBACCO >7 YEARS AGO [facility] Jan 02, 2013 01:23 PM QUIT TOBACCO >7 YEARS AGO [facility] May 25, 2010 01:35 PM LIFETIME NON-USER OF TOBACCO [facility] Aug 17, 2009 01:04 PM QUIT TOBACCO >12 M O & <7 YRS AGO [facility] Sep 17, 2008 01:34 PM QUIT TOBACCO >12 M O & <7 YRS AGO [facility] Sep 20, 2006 10:57 AM QUIT TOBACCO >12 M O & <7 YRS AGO [facility] Jun 05, 2006 10:49 AM CURRENT NON-TOBACC O USER-HX OF USE [facility] Jun 05, 2006 10:49 AM TOBACCO TERMINATION STAGE [facility] Jul 14, 2005 11:00 AM CURRENT NON-TOBACC O USER-HX OF USE [facility] Jul 14, 2005 11:00 AM TOBACCO TERMINATION STAGE [facility] Oct 23, 2004 04:56 PM CURRENT NON-TOBACC O USER-HX OF USE [facility] Oct 23, 2004 04:56 PM TOBACCO ACTION STAGE [facility] Apr 07, 2004 10:58 AM CURRENT NON-TOBACC O USER-HX OF USE [facility] Apr 07, 2004 10:58 AM TOBACCO MAINTENANCE STAGE [facility] December 18, 2002 11:17 AM CURRENT TOBACCO USER [facility] December 18, 2002 11:17 AM TOBACCO USE [facility] Apr 07, 2002 02:25 PM CURRENT NON-TOBACC O USER-RECENTLY QUIT quit 3 mo ago [facility] Apr 07, 2002 02:25 PM TOBACCO USE quit 3 mo ago [facility] Nov 19, 2001 10:50 AM CURRENT TOBACCO USER [facility] Jul 16, 2001 08:35 AM CURRENT TOBACCO USER [facility] Jun 18, 2001 08:31 AM CURRENT TOBACCO USER [facility] Jun 18, 2001 08:31 AM TOBACCO USE [facility] Advance Directives: All historical and current [...] 18, 2018 ADVANCE DIRECTIVE DISCUSSION EMMETT CAMILO [facility] Encounter Notes: All associated encounter notes This section contains the clinical notes associated to the Encounter. Date/Time Encounter Note(s) Provider Source Oct 06, 2024 12:01 PM ADDENDUM: LOCAL TITLE: Addendum STANDARD TITLE: ADDENDUM DATE OF NOTE: OCT 06, 2024@12:01:57 ENTRY DATE: OCT 06, 2024@12:01:58 AUTHOR: QUIN COOK COSIGNER: URGENCY: STATUS: COMPLETED [facility] DENTAL SERVICE/COMMUNITY CARE RFS DETERMINATION The requested treatment: AUTHORIZED SUBMITTED. AUTHORIZED TREATMENT: [id number] Sinus lift bone graft #3 ACTION STEPS (select all that apply) * RFS/ADA Dental Claim Form external records reviewed. * New consult(s) placed with corresponding SEOC(s). * [place] to continue dental treatment with community provider. REQUESTING PROVIDER: Ang Arce [address] [facility] [address] [place] [address] Specialty: Dentist - performance improvement coordinator Network: [facility] 2 COMMUNITY CARE COORDINATION NOTES Please continue 's care for authorized treatment. /radha/ QUIN COOK DMD STAFF DENTIST, GENERAL DENTIST Signed: 10/06/2024 12:02 Receipt Acknowledged By: 10/07/2024 11:56 /bhupendra [facility] RN --- Original Document --- 10/03/24 COMMUNITY CARE-REQUEST FOR SERVICE NOTE [facility]: Request for Services (RFS) documentation has been sent for scanning to [facility] Community [facility] Consult: COMMUNITY CARE-[facility] DENTAL SPEC Consult No: [id number] Date sent to scanning: Sep A Request for Service (RFS) form [id number] has been received which includes the following: Care Requested: [id number] Sinus lift bone graft #3 ICD-10 Dx code: K08.409 Date [facility] received request: Sep Date service required: Sep Requesting Community Provider Information: Ang Arce [address] [facility] [address] [place] [address] Specialty: Dentist - performance improvement coordinator Network: [facility] Region 2 /radha/ DAVON HOWARD ADVANCED KNUCKLE STRAP SEWER Signed: 10/03/2024 15:58 Receipt Acknowledged By: 10/06/2024 12:01 /bhupendra COOK DMD STAFF DENTIST, GENERAL DENTIST 10/07/2024 11:55 /bhupendra [facility] QUIN [facility] Oct 03, 2024 03:55 PM NONVA NOTE: LOCAL TITLE: COMMUNITY CARE-REQUEST FOR SERVICE NOTE ST[facility] STANDARD TITLE: NONVA NOTE DATE OF NOTE: OCT 03, 2024@15:55 ENTRY DATE: OCT 03, 2024@15:55:21 AUTHOR: DAVON HOWARD COSIGNER: URGENCY: STATUS: COMPLETED COMMUNITY CARE-REQUEST FOR SERVICE NOTE [facility] Has ADDENDA Request for Services (RFS) documentation has been sent for scanning to [facility] Community Care Consult: COMMUNITY CARE-ST DENTAL SPEC Consult No: [id number] Date sent to scanning: Sep A Request for Service (RFS) form [id number] has been received which includes the following: Care Requested: [id number] Sinus lift bone graft #3 ICD-10 Dx code: K08.409 Date VA received request: Sep Date service required: Sep Requesting Community Provider Information: Ang Arce [address] [facility] [address] [place] [address] Specialty: Dentist - performance improvement coordinator Network: [place] [id number] /radha/ DAVON HOWARD ADVANCED KNUCKLE STRAP SEWER Signed: 10/03/2024 15:58 Receipt Acknowledged By: 10/06/2024 12:01 /radha/ QUIN COOK DMD STAFF DENTIST, GENERAL DENTIST 10/07/2024 11:55 /radha/ DARRYL [facility] RN 10/06/2024 ADDENDUM STATUS: COMPLETED [facility] DENTAL SERVICE/COMMUNITY CARE RFS DETERMINATION The requested treatment: AUTHORIZED SUBMITTED. AUTHORIZED TREATMENT: [id number] Sinus lift bone graft #3 ACTION STEPS (select all that apply) * RFS/ADA Dental Claim Form external records reviewed. * New consult(s) placed with corresponding SEOC(s). * to continue dental treatment with community provider. REQUESTING PROVIDER: Ang Arce [address] [facility] [address] [place] [address] Specialty: Dentist - performance improvement coordinator Network: [place] [phone] COMMUNITY CARE COORDINATION NOTES Please continue 's care for authorized treatment. /es/ QUIN COOK DMD STAFF DENTIST, GENERAL DENTIST Signed: 10/06/2024 12:02 Receipt Acknowledged By: 10/07/2024 11:56 /es/ DARRYL [facility] DAVON NEELY [facility]
--- OUTSIDE RECORDS SUMMARY | 2024-11-02 11:54 | XMS_ITS ---
Author Name [facility] [place] Organization [facility] [place] Address [address] [place] [address] Care Team Providers Care System Software Developer Name Role Phone EBERBENI NATALIO Primary Care [...] PART A Oct 28, 2001 PART A [id number] Petra DUQUE PATIENT MEDICARE (WNR) MEDICARE (M) PART A Oct 28, 2001 PART A [id number] Petra DUQUE PATIENT MEDICARE (WNR) MEDICARE (M) PART B Oct 28, 2001 PART B [id number] [phone] Petra DUQUE PATIENT Selected Encounter This section includes the information on record at [place] for the Encounter. Date/Time Encounter Type Encounter Description Reason Provider Source Nov 19, 2023 12:30 PM OFF/OP CNSLTJ NEW/EST MOD 40 CARDIOLOGY ICD-10-CM R06.02 Shortness of breath JEANNETTE PEÑA [facility] Encounter Template Text not used by [place] Assessments - Encounter Diagnoses This section includes the primary and secondary diagnoses documented for the Encounter. Date/Time Primary/Secondary Diagnosis Diagnosis Name Provider Source Nov 20, 2023 08:05 AM PRIMARY Shortness of breath JEANNETTE PEÑA [facility] Nov 20, 2023 08:05 AM SECONDARY Chest pain, unspecified [facility] Nov 20, 2023 08:05 AM SECONDARY Chronic obstructive pulmonary disease, [facility] Nov 20, 2023 08:05 AM SECONDARY Essential (primary) hypertension [facility] Nov 20, 2023 08:05 AM SECONDARY Type 2 diabetes mellitus without complications JEANNETTE PEÑA [facility] Plan of Treatment: Future Appointments (+ 6 months) and Future Tests (+/- 45 days) The Plan of Treatment section includes future care activities for the patient from all [place] [facility]. This section includes future appointments and future orders which are active, pending or scheduled. Future Appointments This section includes appointments that were scheduled to occur 6 months from the date of the Encounter, up to a maximum of 20 appointments. The data comes from all [place] treatment facilities. Appointment Date/Time Appointment Type Appointme nt Facility Name November 30, 2023 12:58 PM AMBULATORY - MEDICINE [facility] December 11, 2023 08:00 AM AMBULATORY - MEDICINE [facility] December 11, 2023 09:00 AM AMBULATORY - MEDICINE [facility] December 11, 2023 09:15 AM AMBULATORY - SURGERY . [facility] December 13, 2023 09:30 AM AMBULATORY - SURGERY . [facility] December 17, 2023 12:00 PM AMBULATORY - NONE [facility] Jan 01, 2024 10:00 AM AMBULATORY - NONE [facility] Jan 03, 2024 10:00 AM AMBULATORY - SURGERY . [facility] Jan 14, 2024 08:30 AM AMBULATORY - MEDICINE [facility] Jan 14, 2024 09:30 AM AMBULATORY - MEDICINE [facility] Jan 23, 2024 11:30 AM AMBULATORY - REHAB MEDICIN E [facility] Feb 11, 2024 10:00 AM AMBULATORY - SURGERY . [facility] Feb 22, 2024 10:30 AM AMBULATORY - MEDICINE [facility] Feb 27, 2024 08:15 AM AMBULATORY - MEDICINE [facility] Mar 26, 2024 11:00 AM AMBULATORY - NONE [facility] Mar 27, 2024 12:40 PM AMBULATORY - MEDICINE [facility] Apr 10, 2024 10:30 AM AMBULATORY - SURGERY [facility] Apr 22, 2024 10:00 AM AMBULATORY - SURGERY [facility] May 02, 2024 09:00 AM AMBULATORY - NONE [facility] May 06, 2024 03:30 PM AMBULATORY - MEDICINE [facility] Active, Pending, and Scheduled Orders This section includes a listing of several types of active, pending, and scheduled orders, including clinic medications orders, diagnostic test orders, procedure orders and consult orders; where the start date of the order is 45 days before the date of the Encounter or 45 days after the date of theEncounter. The data comes from all [facility] facilities. Test Date/Time Test Type Test Details Facility Name Oct 17, 2023 06:31 PM Laboratory - Chemi stry Order MRSA SURVL NARES DNA NARES WC [facility] Lab Results: +/- 30 days of [...] Range Comment November 30, 2023 03:50 PM [facility] BLOOD GAS PANEL ABG (STL) Specimen Type: VENOUS BLOOD Comment: Test Performed by: [id number] Meter #: [id number] Ordering Provider: MARCELLO SEE Report Released Date/Time: November 30, 2023 03:50 PM Reporting Lab: [address] [address] Performing Lab: [address] [address] GEM PH 7.40 7.31-7.41 GEM PCO2 45 [...] TEMP 37.0 November 30, 2023 03:45 PM [facility] LACTIC ACID (STL-PB) Specimen Type: PLASMA No comment entered. Ordering Provider: JAMIL ROBINS Report Released Date/Time: November 30, 2023 03:00 PM Reporting Lab: [address] [address] Performing Lab: [address] [address] LACTIC ACID (STL-PB) 1.3 mmol/L 0.5-2.0 November 30, 2023 03:39 PM [facility] COVID-19 DIAGNOSTIC (FLU/RSV)(STL) Specimen Type: NASOPHARYNX [...] November 30, 2023 03:00 PM Reporting Lab: [address] [address] Performing Lab: [address] [address] INFLUENZA A Negative Negative INFLUENZA B Negative Negative COVID-19 (STL-PB) Not Detected Not Detected RSV (Cepheid) NEGATIVE Negative November 30, 2023 01:10 PM [facility] COMPREHENSIVE METABOLIC PANEL Specimen Type: PLASMA Comment: Aspartate Transaminase result may show positive bias due to hemolysis. K result canceled due to hemolysis. Specimen moderately hemolyzed. K cancelled due to moderate hemolysis. Called to Dominick Damon RN at 1445 on 11/30/2023 by KIANNA. Ordering Provider: MARCELLO SEE Report Released Date/Time: November 30, 2023 01:08 PM Reporting Lab: [address] [address] Performing Lab: [address] [address] CREATININE 0.99 mg/dL 0.7-1.3 UREA NITROGEN 13.7 [...] 79.4 >60 November 30, 2023 01:10 PM [facility] URINALYSIS W/ CX REFLEX (STL-PB) Specimen Type: URINE No comment entered. Ordering Provider: MARCELLO SEE Report Released Date/Time: November 30, 2023 01:08 PM Reporting Lab: [address] [address] Performing Lab: [address] [address] URINE COLOR Yellow Yellow U.BILIRUBIN Negative mg/dL [...] 1.005-1.02 9 November 30, 2023 01:10 PM [facility] CBC Specimen Type: BLOOD Comment: Platelet count verified by repeat analysis. No clot found in specimen. No platelet clumping observed in smear. Ordering Provider: MARCELLO SEE Report Released Date/Time: November 30, 2023 01:08 PM Reporting Lab: [address] [address] Performing Lab: [address] [place] [address] WBC 8.4 10*3/uL 3.6-11.2 RBC 6.08 10*6/uL [...] 10*3/uL 0.00-0.20 Nov 19, 2023 12:53 PM [facility] MICRAL/CREAT PROFILE (STL) Specimen Type: URINE No comment entered. Ordering Provider: NATALIO BRIDGES Report Released Date/Time: Oct 25, 2023 08:36 AM Reporting Lab: [address] [address] Performing Lab: [address] [address] URINE ALBUMIN (PB-STL) 29.1 mg/L uACR (STL) 9 mg/g 0-29 CREATININE URINE/OTHERS 314.1 mg/dL H 63-166 Nov 19, 2023 12:50 PM [facility] D-DIMER HS (MA-STL-PB) Specimen Type: PLASMA No comment entered. Ordering Provider: JEANNETTE PEÑA Report Released Date/Time: Nov 19, 2023 12:31 PM Reporting Lab: [place] [id number] Performing Lab: [place] [address] [facility] [address] D-DIMER HS (MA-STL-PB) 371 <500 Nov 19, 2023 12:50 PM [facility] TROPONIN I Specimen Type: PLASMA No comment entered. Ordering Provider: JEANNETTE PEÑA Report Released Date/Time: Nov 19, 2023 12:31 PM Reporting Lab: [place] [address] [facility] [address] Performing Lab: [address] [address] TROPONIN I <0.010 ng/mL 0-0.033 Oct 22, 2023 11:07 AM [facility] GLUCOSE,BLOOD-poct (STL) Specimen Type: BLOOD Comment: Test Performed by: [id number] Meter #: [id number] Ordering Provider: FELIX CURTIS Report Released Date/Time: Oct 22, 2023 11:45 AM Reporting Lab: [place] [address] [facility] [address] Performing Lab: [address] [address] GLUCOSE,BLOOD-p oct (STL) 104 mg/dL H 72-99 Oct 22, 2023 06:36 AM [facility] GLUCOSE,BLOOD-poct (STL) Specimen Type: BLOOD Comment: Test Performed by: [id number] Meter #: [id number] Ordering Provider: FELIX CURTIS Report Released Date/Time: Oct 22, 2023 07:17 AM Reporting Lab: [address] [address] Performing Lab: [address] [address] GLUCOSE,BLOOD-p oct (STL) 112 mg/dL H 72-99 Oct 21, 2023 08:47 PM [facility] GLUCOSE,BLOOD-poct (STL) Specimen Type: BLOOD Comment: Test Performed by: [id number] Meter #: [id number] Ordering Provider: FELIX CURTIS Report Released Date/Time: Oct 21, 2023 09:51 PM Reporting Lab: [address] [address] Performing Lab: [address] [address] GLUCOSE,BLOOD-p oct (STL) 127 mg/dL H 72-99 Oct 21, 2023 04:19 PM [facility] GLUCOSE,BLOOD-poct (STL) Specimen Type: BLOOD Comment: Test Performed by: [id number] Meter #: [id number] Ordering Provider: FELIX CURTIS Report Released Date/Time: Oct 21, 2023 04:43 PM Reporting Lab: [address] [address] Performing Lab: [address] [address] GLUCOSE,BLOOD-p oct (STL) 117 mg/dL H 72-99 Oct 21, 2023 11:25 AM [facility] GLUCOSE,BLOOD-poct (STL) Specimen Type: BLOOD Comment: Test Performed by: [id number] Meter #: [id number] Ordering Provider: FELIX CURTIS Report Released Date/Time: Oct 21, 2023 11:51 AM Reporting Lab: [address] [address] Performing Lab: [address] [address] GLUCOSE,BLOOD-p oct (STL) 123 mg/dL H 72-99 Vital Signs: All taken on the encounter date This section contains inpatient and outpatient Vital Signs collected on the date of the Encounter. Date/Time Temperature Pulse Blood Pressure Respiratory Rate SP02 Pain Height Weight Body Mass Index Source Nov 19, 2023 11:49 AM 98 78 115/72 18 97 0 219.8 28 [facility] Social History: Smoking Status (Most current) and Tobacco Use (All prior to encounter date) This section includes the most current, and the historical, smoking and tobacco- related health factors from the [facility] where the Encounter took place. Current Smoking Status This section includes the most current smoking, or tobacco-related health factor, from the [place] facility where the Encounter took place. Date/Time Current Smoking Status Comment Tristan pastrana Oct 17, 2023 04:53 PM ORYX ADMIT TOBACCO SCREEN NO [facility] Tobacco Use History This section includes a history of the smoking, or tobacco-related health factors, that were collected on or before the date of the Encounter. The data comes from the [place] facility where the Encounter took place. Date/Time Smoking Status/Tobacco Use Comment Alejandro romero Oct 17, 2023 03:00 PM ORYX ADMIT TOBACCO SCREEN NO [facility] Dec 31, 2021 03:07 PM ORYX ADMIT TOBACCO SCREEN NO [facility] Apr 06, 2017 11:33 PM QUIT TOBACCO >7 YEARS AGO [facility] Mar 21, 2017 04:29 AM QUIT TOBACCO >7 YEARS AGO [facility] Jan 20, 2014 09:56 AM QUIT TOBACCO >7 YEARS AGO [facility] Jan 02, 2013 01:23 PM QUIT TOBACCO >7 YEARS AGO [facility] May 25, 2010 01:35 PM LIFETIME NON-USER OF TOBACCO [facility] Aug 17, 2009 01:04 PM QUIT TOBACCO >12 M O & <7 YRS AGO [facility] Sep 17, 2008 01:34 PM QUIT TOBACCO >12 M O & <7 YRS AGO [facility] Sep 20, 2006 10:57 AM QUIT TOBACCO >12 M O & <7 YRS AGO [facility] Jun 05, 2006 10:49 AM CURRENT NON-TOBACC O USER-HX OF USE [facility] Jun 05, 2006 10:49 AM TOBACCO TERMINATION STAGE [facility] Jul 14, 2005 11:00 AM CURRENT NON-TOBACC O USER-HX OF USE [facility] Jul 14, 2005 11:00 AM TOBACCO TERMINATION STAGE [facility] Oct 23, 2004 04:56 PM CURRENT NON-TOBACC O USER-HX OF USE [facility] Oct 23, 2004 04:56 PM TOBACCO ACTION STAGE [facility] Apr 07, 2004 10:58 AM CURRENT NON-TOBACC O USER-HX OF USE [facility] Apr 07, 2004 10:58 AM TOBACCO MAINTENANCE STAGE [facility] December 18, 2002 11:17 AM CURRENT TOBACCO USER [facility] December 18, 2002 11:17 AM TOBACCO USE [facility] Apr 07, 2002 02:25 PM CURRENT NON-TOBACC O USER-RECENTLY QUIT quit 3 mo ago [facility] Apr 07, 2002 02:25 PM TOBACCO USE quit 3 mo ago [facility] Nov 19, 2001 10:50 AM CURRENT TOBACCO USER [facility] Jul 16, 2001 08:35 AM CURRENT TOBACCO USER [facility] Jun 18, 2001 08:31 AM CURRENT TOBACCO USER [facility] Jun 18, 2001 08:31 AM TOBACCO USE [facility] Advance Directives: All historical and current Section Date Range: From patient's date of to the date document was created. This section includes ALL of a patient's completed or amended [place] Advance and Rescinded Directives. The entries below indicate that a directive exists for the patient, but an actual copy is not included with this document. The data comes from all [facility]. Date Advance Directives Provider Source Feb 18, 2018 ADVANCE DIRECTIVE DISCUSSION EMMETT CAMILO [facility] Radiology Reports: +/- 30 days of [...] the Encounter. The data comes from all [place] treatment facilities. Date/Time Radiology Report Provider Source November 30, 2023 03:[address] ABDOMEN AND PEL VIS W/CONTRAST: MAURILIO DUQUE [id number] -[id number] M Exm Date: NOVEMBER 30, 2023@15:53 Req Phys: JENNIFER PALOMINO Loc: [facility]EMERGENCY DEPT 2ND SHIFT (R Img Loc: [facility]-CT IMAGING [facility] Service: Unknown [facility], [address] [place] [address] (Case [id number] COMPLETE) CT ABDOMEN AND PELVIS W/CONTRAST (CT Detailed) CPT:70292 Contrast Media : Non-ionic Iodinated Reason for Study: groin pain x 5 days and vomiting, hx of multiple hernia repairs Clinical History: Responsible Attending: Sundeep Attending Contact Number: [phone] Resident Contact Number: pt with multiple hernia [...] 2023 Date Verified: NOVEMBER 30, 2023 Medical Assistant Float E-Sig:/ES/MARYLOU JESSICA MD Report: Case: [id number] CT abdomen and pelvis. CT axial images [...] Staff: MARYLOU JESSICA MD, STAFF RADIOLOGIST (Medical Assistant Float) /MARYLOU CABRERA [facility] November 30, 2023 03:[address] 3D RENDERING W INDEPENDENT WORKSTATION POSTPROCESSING: MAURILIO DUQUE [id number] -1950 M Exm Date: NOVEMBER 30, 2023@15:53 Req Phys: JENNIFER PALOMINO Loc: [facility]ERG[facility]Y [facility]PT 2ND SHIFT (R Img Loc: [facility]CT IMAGING [facility] Service: Unknown [facility], [facility] [address] [place] [address] (Case [id number] COMPLETE) CT 3D RENDERING W INDEPENDENT WOR(CT Detailed) CPT:53775 Reason for Study: GROIN PAIN Clinical History: Responsible Attending: Sundeep Attending Contact Number: [phone] Resident Contact Number: pt with multiple hernia [...] 2023 Date Verified: DECEMBER 05, 2023 Medical Assistant Float E-Sig:/ES/MARYLOU JESSICA MD Report: Case: [id number] CT abdomen and pelvis[address] CT axial images [...] Staff: MARYLOU JESSICA MD, STAFF RADIOLOGIST (Medical Assistant Float) /MARYLOU CABRERA [facility] Encounter Notes: All associated encounter notes This section contains the clinical notes associated to the Encounter. Date/Time Encounter Note(s) Provider Source Jan 15, 2024 11:56 AM ADDENDUM: LOCAL TITLE: Addendum STANDARD TITLE: ADDENDUM DATE OF NOTE: JAN 15, 2024@11:56:46 ENTRY DATE: JAN 15, 2024@11:56:47 AUTHOR: JEANNETTE PEÑA EXP COSIGNER: URGENCY: STATUS: COMPLETED Normal Nuclear stress noted Impression: 1. Normal SPECT myocardial imaging without evidence of stress-induced ischemia. 2. Normal left ventricle contractility with LVEF of 71%. will ask comp field case manager Gerri to inform patient his stress was negative. thank you. /radha/ JEANNETTE PEÑA RECREATIONAL ASSISTANT CARDIOLOGY/ELECTROPHYSIOLOGY RECREATIONAL ASSISTANT Signed: 01/15/2024 11:57 Receipt Acknowledged By: 01/15/2024 14:20 /radha/ KAROLINE Grubbs, boat garnisher Senior Sales Administrator --- Original Document --- 11/19/23 CARDIOLOGY OUTPATIENT CONSULT STL: Cardiology Outpatient Note [facility] CARDIOLOGY SERVICE: CARDIOLOGY NOTE REASON FOR VISIT:chest pain HPI: Julio Duque is a 73 yo comes today for consult regarding his pertinent medical history of chest pain, with dx of HTN, HLD, COPD, DMT2, GERD. he reports he is having significant SOB/cough with ambulation/any type of insertion. He has been seen in ER 10/01/2023 and 10/17/[address] PE chest completed. He was treated for pneumonia and given a z-jesse and tessalon pearls. Impression: 1. Groundglass consolidation in the posterior segment of the right upper lobe represents sequela of infection or inflammation. Appropriate clinical correlation is recommended. 2. There is suboptimal evaluation of the pulmonary arteries due to the timing of the contrast bolus. Within this limitation, there is no definite acute pulmonary embolism in the main or lobar pulmonary arteries. He reports he continues to have significant SOB and will get dizzy at times He had PFTs conmpleted that showed a mild restrictive pattern with no evidence of obstruction although prior CT scans show evidence of emphysema. Had a recurrent episode of COVID in March 2023. He states that he has not yet recovered his previous level of activity since then. He denies chest pain but does report some pressure at times. He denies excessive bruising or bleeding. he denies fever or night sweats. He denies lower leg swelling. Is positive for near syncope but no syncope. Social hx:Negative smoking, alcohopl or recreational drug use, Quit smoking 22 years ago AGO [employer] [id number] 08/13/1967 - [birth year]26/1968 GENERAL Family hx:NONE ROS: 11 point review of systems completed with all pertinent information placed in HPI ACTIVE PROBLEMS:1) Benign essential hypertension (SNOMED CT 3711178) 2) Left trigeminal neuralgia (SNOMED CT [id number]) 3) GERD - Gastro-esophageal reflux disease (SNOMED CT 120191261) 4) Chronic obstructive lung disease (SNOMED CT 53467443) 5) LBP - Low back pain (SNOMED CT 905311054) 6) Knee pain (SNOMED CT 16596709) 7) Chest pain 8) Hip joint pain 9) Candidiasis of the esophagus 10) Parotitis 11) Cervicalgia 12) Long-term current use of opiate analgesic drug 13) Diabetes Mellitus Type 2 ([facility] 86008246) 14) Inguinal hernia 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 21) Exposure to potentially hazardous substance ALLERGIES:LISINOPRIL, FENTANYL, COCONUTS ACTIVE MEDICATIONS:Active and Recently Outpatient Medications (including Supplies): Active Outpatient Medications [...] A ACTIVE DAY TO LOWER BLOOD PRESSURE Inactive Outpatient Medications Status ========= 1) AZITHROMYCIN 250MG TAB TAKE TWO TABLETS BY MOUTH ONCE A DAY FOR 1 DAY, THEN TAKE ONE TABLET ONCE A DAY FOR 4 DAYS FOR BRONCHITIS (UNTIL GONE) 2) BENZONATATE 100MG CAP TAKE ONE CAPSULE BY MOUTH THREE TIMES A DAY NEEDED FOR COUGH 3) PREDNISONE 50MG TAB TAKE ONE TABLET BY MOUTH EVERY MORNING FOR BRONCHITIS TAKE WITH FOOD OR MILK. 19 Total Medications All cardiac medications listed above were reconciled during the visit ECHO:need STRESS TEST:07/11/2021 Impression: 1. Normal SPECT myocardial imaging without evidence of stress-induced ischemia. 2. Normal left ventricle contractility with LVEF of 67%. LAST LABS: TSH: TSH 2.070 uIU/mL 09/12/2022 11:13 No LIPID PANEL EO data found HGA1C 5.8 % 09/12/2022 11:13 Comprehensive Metabolic Panel Results: SODIUM 141 mEq/L 10/19/2023 06:00 POTASSIUM 3.6 mEq/L 10/19/2023 06:00 CHLORIDE 111 H mEq/L 10/19/2023 06:00 UREA NITROGEN 13.0 mg/dL 10/19/2023 06:00 CREATININE 0.91 mg/dL 10/19/2023 06:00 CALCIUM 9.4 mg/dL 10/19/2023 06:00 PROTEIN 6.9 g/dL 10/17/2023 09:10 ALBUMIN 3.5 g/dL 10/19/2023 06:00 ALKALINE PHOSPHATASE 95 U/L 10/17/2023 09:10 ALT/SGPT 20 U/L 10/17/2023 09:10 AST/SGOT 20 U/L 10/17/2023 09:10 TOTAL BILIRUBIN 0.7 mg/dL 10/17/2023 09:10 CARBON DIOXIDE 22 mEq/L 10/19/2023 06:00 GLUCOSE 126 H mg/dL 10/19/2023 06:00 EGFR (CKD-EPI 2020) 87.9 10/19/2023 06:00 WBC 9.5 10*3/uL 10/19/2023 06:00 RBC 4.78 10*6/uL 10/19/2023 06:00 HGB 13.7 g/dL 10/19/2023 06:00 HCT 40.7 % 10/19/2023 06:00 MCV 85.1 fL 10/19/2023 06:00 MCH 28.7 pg 10/19/2023 06:00 MCHC 33.7 g/dL 10/19/2023 06:00 RDW 14.1 % 10/19/2023 06:00 PLT 230 10*3/uL 10/19/2023 06:00 MPV 11.8 H fL 10/19/2023 06:00 NEUTROPHILS, AUTO % 72 % 10/19/2023 06:00 LYMPHOCYTES, AUTO % 21 % 10/19/2023 06:00 MONOCYTES, AUTO % 7 % 10/19/2023 06:00 EOSINOPHILS, AUTO % 0 % 10/19/2023 06:00 BASOPHILS, AUTO % 0 % 10/19/2023 06:00 IMMATURE GRANS, AUTO % 0.2 % 04/28/2022 14:30 NEUTROPHILS, ABSOLUTE 6.86 10*3/uL 10/19/2023 06:00 LYMPHOCYTES, ABSOLUTE 1.96 10*3/uL 10/19/2023 06:00 MONOCYTES, ABSOLUTE 0.63 10*3/uL 10/19/2023 06:00 EOSINOPHILS, ABSOLUTE 0.02 10*3/uL 10/19/2023 06:00 BASOPHILS, ABSOLUTE 0.02 10*3/uL 10/19/2023 06:00 IMMATURE GRANS, AUTO ABS 0.02 10*3/uL 04/28/2022 14:30 NRBC% 0.0 % 01/03/2022 20:00 NEUTROPHILS 86.1 % 10/17/2023 09:10 LYMPHOCYTES 5.2 % 10/17/2023 09:10 MONOCYTES 4.4 % 10/17/2023 09:10 ATYPICAL LYMPHOCYTES 4.3 % 10/17/2023 09:10 IMMATURE PLT FRACTION 7.9 H % 09/12/2022 11:13 PHYSICAL ASSESSMENT GENERAL: well-mannered, well-groomed 73 yo WM NECK: no JVD, no carotid bruit CARDIO: RRR, S1S2 present, no murmur PULM: LSCB, no cough, rales or wheeze ABDOMEN: nondistended, nontender and soft EXTREMITIES: 2+ post tibial pulses, with no edema NEUROLOGIC: AAOx3, normal motor strength PSYCHIATRIC: affect and mood normal VITALS: Temperature: 98 F [36.7 C] (11/19/2023 11:49) Blood Pressure: 115/72 (11/19/2023 11:49) Pulse: 78 (11/19/2023 11:49) Respirations: 18 (11/19/2023 11:49) EC SINUS WITH NON SPECIFIC ST CHANGES ASSESSMENT AND PLAN 1.chest pain/pressure with exertion, ecg and troponins negative for ischemia 2.dizziness with carotid completed years ago showed non-obstructive disease, will order carotid duplex 3.HTN controlled with amlodipine and valsartan 4.DMT2 on metformin A1C well below goal. of note with HTN and DMT2 there is not a lipid panel drawn. I thought I added that to the labs. Will obtain at next visit RTC in 3 months Spent 40 min reviewing records/labs/obtaining history/examining patient/ordering labs, tests, medications/discussing results and plan with patient and/or outside provider. All patients are counseled on the risks of smoking at every visit including patients with no history of smoking in order to dissuade them from starting the use of tobacco products; former smokers to minimize recidivism of nicotine dependence: and current smokers in an effort to help them cease the use of nicotine products. Where relevant [age between 50-60-years and history of smoking], we and/or the PCP will obtain an abdominal ultrasound to screen for the possibility of an abdominal aortic aneurysm and ABIs to screen for occult PAD. When completed, the results will be found in [facility]. # HEALTH PROMOTION/HEALTH MAINTENANCE & EDUCATION DISEASE: Discussed treatment options & counseled on exacerbating factors. # DIAGNOSTIC TESTING AND LABORATORY DATA: Pertinent labs and diagnostic tests (both normal and abnormal) are included above and were reviewed and discussed with the patient within 7-days of the test and during this visit. - DISEASE: Coordinated care; discussed treatment options, & counseled on exacerbating factors. - Encouraged participation in regular exercise program 3-5 days/week - Maximize risk factor reduction & lifestyle modifications i.e. BP <130/80 and LDL goal <70 - Discussed at length about lifestyle modifications in regard to diet, exercise, and medication compliance. -Assessed smoking habits and whether actively using tobacco products or a past history of nicotine dependence, smoking cessation strategies were reinforced. - In patients with a history of CHF, RONNIE/ARB use is considered and held when contraindications such as allergies, renal function preclude use. If not mentioned in the above note, these assessments are detailed in prior cardiology notes. The patient verbalized understanding of information regarding: labs, meds, and plans for care. Reinforcement is indicated. # MEDICATION RECONCILIATION: - All cardiac medications were reconciled during the visit. - All patients with an EF </= 40% are considered for Ronnie inhibitors or ARBs except when contraindicated due to intolerance/allergy, hypotension, or renal disease. Documentation is found in the historical record if not repeated in this note. - All patients with an EF </= 40% are considered for beta blockers and aspirin, contraindicated due to intolerance/allergy, hypotension, bradycardia, or bleeding risk. Documentation is found in the historical record if not repeated in this note. - Anticoagulation therapy was discussed with all patients in the setting of atrial flutter/fibrillation and held in cases where the complications of bleeding (e.g., fall risk) outweighs the risk of stroke. All patients on anticoagulation medications are counseled on bleeding risks and the warning signs of a stroke or TIA. - Except where mentioned or restricted, the PCP may renew the cardiac medications. - Other listed profile meds will continue as directed by the PCP (primary provider). Thank you for allowing me to participate in this patient's care. Please don't hesitate to call with any questions or concerns. Life Sustaining Treatment Orders /es/ JEANNETTE PEÑA RECREATIONAL ASSISTANT CARDIOLOGY/ELECTROPHYSIOLOGY RECREATIONAL ASSISTANT Signed: 11/20/2023 08:04 JEANNETTE PEÑA [facility] Nov 19, 2023 12:08 PM CARDIOLOGY CONSULT: LOCAL TITLE: CARDIOLOGY OUTPATIENT CONSULT [facility] STANDARD TITLE: CARDIOLOGY CONSULT DATE OF NOTE: NOV 19, 2023@12:08 ENTRY DATE: NOV 19, 2023@12:08:59 AUTHOR: JEANNETTE PEÑA EXP COSIGNER: URGENCY: STATUS: COMPLETED CARDIOLOGY OUTPATIENT CONSULT [facility] Has ADDENDA Cardiology Outpatient Note [facility] CARDIOLOGY SERVICE: CARDIOLOGY NOTE REASON FOR VISIT:chest pain HPI: Julio Duque is a 73 yo comes today for consult regarding his pertinent medical history of chest pain, with dx of HTN, HLD, COPD, DMT2, GERD. he reports he is having significant SOB/cough with ambulation/any type of insertion. He has been seen in [facility] 10/01/2023 and 10/17/[address] PE chest completed. He was treated for pneumonia and given a z-jesse and tessalon pearls. Impression: 1. Groundglass consolidation in the posterior segment of the right upper lobe represents sequela of infection or inflammation. Appropriate clinical correlation is recommended. 2. There is suboptimal evaluation of the pulmonary arteries due to the timing of the contrast bolus. Within this limitation, there is no definite acute pulmonary embolism in the main or lobar pulmonary arteries. He reports he continues to have significant SOB and will get dizzy at times He had PFTs conmpleted that showed a mild restrictive pattern with no evidence of obstruction although prior CT scans show evidence of emphysema. Had a recurrent episode of COVID in March 2023. He states that he has not yet recovered his previous level of activity since then. He denies chest pain but does report some pressure at times. He denies excessive bruising or bleeding. he denies fever or night sweats. He denies lower leg swelling. Is positive for near syncope but no syncope. Social hx:Negative smoking, alcohopl or recreational drug use, Quit smoking 22 years ago AGO [employer] [id number] [birth year]/1967 - 07/26/1970 GENERAL Family hx:NONE ROS: 11 point review of systems completed with all pertinent information placed in HPI ACTIVE PROBLEMS:1) Benign essential hypertension (SNOMED CT 0379384) 2) Left trigeminal neuralgia (SNOMED CT 64981647071410337) 3) GERD - Gastro-esophageal reflux disease (SNOMED CT 827007507) 4) Chronic obstructive lung disease (SNOMED CT 27339187) 5) LBP - Low back pain (SNOMED CT 891716945) 6) Knee pain (SNOMED CT 89897915) 7) Chest pain 8) Hip joint pain 9) Candidiasis of the esophagus 10) Parotitis 11) Cervicalgia 12) Long-term current use of opiate analgesic drug 13) Diabetes Mellitus Type 2 (SCT 08348133) 14) Inguinal hernia 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 21) Exposure to potentially hazardous substance ALLERGIES:LISINOPRIL, FENTANYL, COCONUTS ACTIVE MEDICATIONS:Active and Recently Outpatient Medications (including Supplies): Active Outpatient Medications [...] A ACTIVE DAY TO LOWER BLOOD PRESSURE Inactive Outpatient Medications Status ========= 1) AZITHROMYCIN 250MG TAB TAKE TWO TABLETS BY MOUTH ONCE A DAY FOR 1 DAY, THEN TAKE ONE TABLET ONCE A DAY FOR 4 DAYS FOR BRONCHITIS (UNTIL GONE) 2) BENZONATATE 100MG CAP TAKE ONE CAPSULE BY MOUTH THREE TIMES A DAY NEEDED FOR COUGH 3) PREDNISONE 50MG TAB TAKE ONE TABLET BY MOUTH EVERY MORNING FOR BRONCHITIS TAKE WITH FOOD OR MILK. 19 Total Medications All cardiac medications listed above were reconciled during the visit ECHO:need STRESS TEST:07/11/2021 Impression: 1. Normal SPECT myocardial imaging without evidence of stress-induced ischemia. 2. Normal left ventricle contractility with LVEF of 67%. LAST LABS: TSH: TSH 2.070 uIU/mL 09/12/2022 11:13 No LIPID PANEL EO data found HGA1C 5.8 % 09/12/2022 11:13 Comprehensive Metabolic Panel Results: SODIUM 141 mEq/L 10/19/2023 06:00 POTASSIUM 3.6 mEq/L 10/19/2023 06:00 CHLORIDE 111 H mEq/L 10/19/2023 06:00 UREA NITROGEN 13.0 mg/dL 10/19/2023 06:00 CREATININE 0.91 mg/dL 10/19/2023 06:00 CALCIUM 9.4 mg/dL 10/19/2023 06:00 PROTEIN 6.9 g/dL 10/17/2023 09:10 ALBUMIN 3.5 g/dL 10/19/2023 06:00 ALKALINE PHOSPHATASE 95 U/L 10/17/2023 09:10 ALT/SGPT 20 U/L 10/17/2023 09:10 AST/SGOT 20 U/L 10/17/2023 09:10 TOTAL BILIRUBIN 0.7 mg/dL 10/17/2023 09:10 CARBON DIOXIDE 22 mEq/L 10/19/2023 06:00 GLUCOSE 126 H mg/dL 10/19/2023 06:00 EGFR (CKD-EPI 2020) 87.9 10/19/2023 06:00 WBC 9.5 10*3/uL 10/19/2023 06:00 RBC 4.78 10*6/uL 10/19/2023 06:00 HGB 13.7 g/dL 10/19/2023 06:00 HCT 40.7 % 10/19/2023 06:00 MCV 85.1 fL 10/19/2023 06:00 MCH 28.7 pg 10/19/2023 06:00 MCHC 33.7 g/dL 10/19/2023 06:00 RDW 14.1 % 10/19/2023 06:00 PLT 230 10*3/uL 10/19/2023 06:00 MPV 11.8 H fL 10/19/2023 06:00 NEUTROPHILS, AUTO % 72 % 10/19/2023 06:00 LYMPHOCYTES, AUTO % 21 % 10/19/2023 06:00 MONOCYTES, AUTO % 7 % 10/19/2023 06:00 EOSINOPHILS, AUTO % 0 % 10/19/2023 06:00 BASOPHILS, AUTO % 0 % 10/19/2023 06:00 IMMATURE GRANS, AUTO % 0.2 % 04/28/2022 14:30 NEUTROPHILS, ABSOLUTE 6.86 10*3/uL 10/19/2023 06:00 LYMPHOCYTES, ABSOLUTE 1.96 10*3/uL 10/19/2023 06:00 MONOCYTES, ABSOLUTE 0.63 10*3/uL 10/19/2023 06:00 EOSINOPHILS, ABSOLUTE 0.02 10*3/uL 10/19/2023 06:00 BASOPHILS, ABSOLUTE 0.02 10*3/uL 10/19/2023 06:00 IMMATURE GRANS, AUTO ABS 0.02 10*3/uL 04/28/2022 14:30 NRBC% 0.0 % 01/03/2022 20:00 NEUTROPHILS 86.1 % 10/17/2023 09:10 LYMPHOCYTES 5.2 % 10/17/2023 09:10 MONOCYTES 4.4 % 10/17/2023 09:10 ATYPICAL LYMPHOCYTES 4.3 % 10/17/2023 09:10 IMMATURE PLT FRACTION 7.9 H % 09/12/2022 11:13 PHYSICAL ASSESSMENT GENERAL: well-mannered, well-groomed 73 yo WM NECK: no JVD, no carotid bruit CARDIO: RRR, S1S2 present, no murmur PULM: LSCB, no cough, rales or wheeze ABDOMEN: nondistended, nontender and soft EXTREMITIES: 2+ post tibial pulses, with no edema NEUROLOGIC: AAOx3, normal motor strength PSYCHIATRIC: affect and mood normal VITALS: Temperature: 98 F [36.7 C] (11/19/2023 11:49) Blood Pressure: 115/72 (11/19/2023 11:49) Pulse: 78 (11/19/2023 11:49) Respirations: 18 (11/19/2023 11:49) EC SINUS WITH NON SPECIFIC ST CHANGES ASSESSMENT AND PLAN 1.chest pain/pressure with exertion, ecg and troponins negative for ischemia 2.dizziness with carotid completed years ago showed non-obstructive disease, will order carotid duplex 3.HTN controlled with amlodipine and valsartan 4.DMT2 on metformin A1C well below goal. of note with HTN and DMT2 there is not a lipid panel drawn. I thought I added that to the labs. Will obtain at next visit RTC in 3 months Spent 40 min reviewing records/labs/obtaining history/examining patient/ordering labs, tests, medications/discussing results and plan with patient and/or outside provider. All patients are counseled on the risks of smoking at every visit including patients with no history of smoking in order to dissuade them from starting the use of tobacco products; former smokers to minimize recidivism of nicotine dependence: and current smokers in an effort to help them cease the use of nicotine products. Where relevant [age between 50-60-years and history of smoking], we and/or the PCP will obtain an abdominal ultrasound to screen for the possibility of an abdominal aortic aneurysm and ABIs to screen for occult PAD. When completed, the results will be found in [facility]. # HEALTH PROMOTION/HEALTH MAINTENANCE & EDUCATION DISEASE: Discussed treatment options & counseled on exacerbating factors. # DIAGNOSTIC TESTING AND LABORATORY DATA: Pertinent labs and diagnostic tests (both normal and abnormal) are included above and were reviewed and discussed with the patient within 7-days of the test and during this visit. - DISEASE: Coordinated care; discussed treatment options, & counseled on exacerbating factors. - Encouraged participation in regular exercise program 3-5 days/week - Maximize risk factor reduction & lifestyle modifications i.e. BP <130/80 and LDL goal <70 - Discussed at length about lifestyle modifications in regard to diet, exercise, and medication compliance. -Assessed smoking habits and whether actively using tobacco products or a past history of nicotine dependence, smoking cessation strategies were reinforced. - In patients with a history of CHF, RONNIE/ARB use is considered and held when contraindications such as allergies, renal function preclude use. If not mentioned in the above note, these assessments are detailed in prior cardiology notes. The patient verbalized understanding of information regarding: labs, meds, and plans for care. Reinforcement is indicated. # MEDICATION RECONCILIATION: - All cardiac medications were reconciled during the visit. - All patients with an EF </= 40% are considered for Ronnie inhibitors or ARBs except when contraindicated due to intolerance/allergy, hypotension, or renal disease. Documentation is found in the historical record if not repeated in this note. - All patients with an EF </= 40% are considered for beta blockers and aspirin, contraindicated due to intolerance/allergy, hypotension, bradycardia, or bleeding risk. Documentation is found in the historical record if not repeated in this note. - Anticoagulation therapy was discussed with all patients in the setting of atrial flutter/fibrillation and held in cases where the complications of bleeding (e.g., fall risk) outweighs the risk of stroke. All patients on anticoagulation medications are counseled on bleeding risks and the warning signs of a stroke or TIA. - Except where mentioned or restricted, the PCP may renew the cardiac medications. - Other listed profile meds will continue as directed by the PCP (primary provider). Thank you for allowing me to participate in this patient's care. Please don't hesitate to call with any questions or concerns. Life Sustaining Treatment Orders /radha/ JEANNETTE PEÑA RECREATIONAL ASSISTANT CARDIOLOGY/ELECTROPHYSIOLOGY RECREATIONAL ASSISTANT Signed: 11/20/2023 08:04 01/15/2024 ADDENDUM STATUS: COMPLETED Normal Nuclear stress noted Impression: 1. Normal SPECT myocardial imaging without evidence of stress-induced ischemia. 2. Normal left ventricle contractility with LVEF of 71%. will ask comp field case manager Gerri to inform patient his stress was negative. thank you. /radha/ JEANNETTE PEÑA RECREATIONAL ASSISTANT CARDIOLOGY/ELECTROPHYSIOLOGY RECREATIONAL ASSISTANT Signed: 01/15/2024 11:57 Receipt Acknowledged By: * AWAITING SIGNATURE * GERRI GRANADOS CONNIE S [facility]
--- OUTSIDE RECORDS SUMMARY | 2024-11-02 11:54 | XMS_ITS | Encounter Summary ---
Author Name [facility] [facility] [place] [facility] [place] [facility] [place] Address [address] [place] [address] Care Team Providers Care Media Promoter Name Role Phone NATALIO BRIDGES Primary Care [...] PART A Oct 28, 2001 PART A [id number] [phone] Petra DUQUE PATIENT MEDICARE (WNR) MEDICARE (M) PART B Oct 28, 2001 PART B [id number] Petra DUQUE PATIENT MEDICARE (WNR) MEDICARE (M) PART A Oct 28, 2001 PART A [id number] [phone] Petra DUQUE PATIENT Selected Encounter This section includes the information on record at [place] for the Encounter. Date/Time Encounter Type Encounter Description Reason Provider Source November 30, 2023 04:34 PM OFFICE O/P EST HI 40 MIN GENERAL SURGERY ICD-10-CM N50.82 Scrotal pain AFT,CHON IHE Encounter Template Text not used by [place] Assessments - Encounter Diagnoses This section includes the primary and secondary diagnoses documented for the Encounter. Date/Time Primary/Secondary Diagnosis Diagnosis Name Provider Source November 30, 2023 05:29 PM PRIMARY Scrotal pain [facility] Plan of Treatment: Future Appointments (+ 6 months) and Future Tests (+/- 45 days) The Plan of Treatment section includes future care activities for the patient [facility] [place] [facility]. This section includes future appointments and future orders which are active, pending or scheduled. Future Appointments This section includes appointments that were scheduled to occur 6 months from the date of the Encounter, up to a maximum of 20 appointments. The data comes from all [place] treatment facilities. Appointment Date/Time Appointment Type Appointme nt Facility Name December 11, 2023 08:00 AM AMBULATORY - MEDICINE [facility] December 11, 2023 09:00 AM AMBULATORY - MEDICINE [facility] December 11, 2023 09:15 AM AMBULATORY - SURGERY [facility] December 13, 2023 09:30 AM AMBULATORY - SURGERY [facility] December 17, 2023 12:00 PM AMBULATORY - NONE . [facility] Jan 01, 2024 10:00 AM AM[facility]ULATORY - N[facility] Jan 03, 2024 10:00 AM AMBULATORY - SURGERY [facility] Jan 14, 2024 08:30 AM AMBULATORY - MEDICINE [facility] Jan 14, 2024 09:30 AM AMBULATORY - MEDICINE [facility] Jan 23, 2024 11:30 AM AMBULATORY - REHAB MEDICIN E [facility] Feb 11, 2024 10:00 AM AMBULATORY - SURGERY . [facility] Feb 22, 2024 10:30 AM AMBULATORY - MEDICINE [facility] Feb 27, 2024 08:15 AM AMBULATORY - MEDICINE [facility] Mar 26, 2024 11:00 AM AMBULATORY - NONE [facility] Mar 27, 2024 12:40 PM AMBULATORY - MEDICINE [facility] Apr 10, 2024 10:30 AM AMBULATORY - SURGERY . [facility] Apr 22, 2024 10:00 AM AMBULATORY - SURGERY . [facility] May 02, 2024 09:00 AM AMBULATORY - NONE [facility] May 06, 2024 03:30 PM AMBULATORY - MEDICINE [facility] May 19, 2024 11:00 AM AMBULATORY - MEDICINE [facility] Active, Pending, and Scheduled Orders This section includes a listing of several types of active, pending, and scheduled orders, including clinic medications orders, diagnostic test orders, procedure orders and consult orders; where the start date of the order is 45 days before the date of the Encounter or 45 days after the date of theEncounter. The data comes from all [place] treatment facilities. Test Date/Time Test Type Test Details Facility Name Oct 17, 2023 06:31 PM Laboratory - Chemi stry Order MRSA SURVL NARES DNA NARES WC [facility] Lab Results: +/- 30 days [...] Range Comment November 30, 2023 03:50 PM [facility] BLOOD GAS PANEL ABG (STL) Specimen Type: VENOUS BLOOD Comment: Test Performed by: [id number] Meter #: [id number] Ordering Provider: MARCELLO SEE Report Released Date/Time: November 30, 2023 03:50 PM Reporting Lab: [facility] [address] [facility] [address] Performing Lab: [address] [address] GEM PH 7.40 7.31-7.41 GEM PCO2 45 [...] TEMP 37.0 November 30, 2023 03:45 PM [facility] LACTIC ACID (STL-PB) Specimen Type: PLASMA No comment entered. Ordering Provider: JAMIL ROBINS Report Released Date/Time: November 30, 2023 03:00 PM Reporting Lab: [address] [address] Performing Lab: [address] [address] LACTIC ACID (STL-PB) 1.3 mmol/L 0.5-2.0 November 30, 2023 03:39 PM [facility] COVID-19 DIAGNOSTIC (FLU/RSV)(STL) Specimen Type: NASOPHARYNX Comment: [...] November 30, 2023 03:00 PM Reporting Lab: [address] [address] Performing Lab: [address] [address] INFLUENZA A Negative Negative INFLUENZA B Negative Negative COVID-19 (STL-PB) Not Detected Not Detected RSV (Cepheid) NEGATIVE Negative November 30, 2023 01:10 PM [facility] COMPREHENSIVE METABOLIC PANEL Specimen Type: PLASMA Comment: Aspartate Transaminase result may show positive bias due to hemolysis. K result canceled due to hemolysis. Specimen moderately hemolyzed. K cancelled due to moderate hemolysis. Called to Dominick Damon RN at 1445 on 11/30/2023 by KIANNA. Ordering Provider: MARCELLO SEE Report Released Date/Time: November 30, 2023 01:08 PM Reporting Lab: [address] [address] Performing Lab: [address] [address] CREATININE 0.99 mg/dL 0.7-1.3 UREA NITROGEN 13.7 [...] 79.4 >60 November 30, 2023 01:10 PM [facility] URINALYSIS W/ CX REFLEX (STL-PB) Specimen Type: URINE No comment entered. Ordering Provider: MARCELLO SEE Report Released Date/Time: November 30, 2023 01:08 PM Reporting Lab: [address] [address] Performing Lab: [address] [address] URINE COLOR Yellow Yellow U.BILIRUBIN Negative mg/dL [...] 1.005-1.02 9 November 30, 2023 01:10 PM [facility] CBC Specimen Type: BLOOD Comment: Platelet count verified by repeat analysis. No clot found in specimen. No platelet clumping observed in smear. Ordering Provider: MARCELLO SEE Report Released Date/Time: November 30, 2023 01:08 PM Reporting Lab: [place] [id number] Performing Lab: [place] [id number] WBC 8.4 10*3/uL 3.6-11.2 RBC 6.08 10*6/uL [...] 10*3/uL 0.00-0.20 Nov 19, 2023 12:53 PM [facility] MICRAL/CREAT PROFILE (STL) Specimen Type: URINE No comment entered. Ordering Provider: NATALIO BRIDGES Report Released Date/Time: Oct 25, 2023 08:36 AM Reporting Lab: [address] [address] Performing Lab: [address] [address] URINE ALBUMIN (PB-STL) 29.1 mg/L uACR (STL) 9 mg/g 0-29 CREATININE URINE/OTHERS 314.1 mg/dL H 63-166 Nov 19, 2023 12:50 PM [facility] D-DIMER HS (MA-STL-PB) Specimen Type: PLASMA No comment entered. Ordering Provider: JEANNETTE PEÑA Report Released Date/Time: Nov 19, 2023 12:31 PM Reporting Lab: [address] [address] Performing Lab: [address] [address] D-DIMER HS (MA-STL-PB) 371 <500 Nov 19, 2023 12:50 PM [facility] TROPONIN I Specimen Type: PLASMA No comment entered. Ordering Provider: JEANNETTE PEÑA Report Released Date/Time: Nov 19, 2023 12:31 PM Reporting Lab: [address] [address] Performing Lab: [facility] [address] [facility] [address] TROPONIN I <0.010 ng/mL 0-0.033 Vital Signs: All taken on the encounter date This section contains inpatient and outpatient Vital Signs collected on the date of the Encounter. Date/Time Temperature Pulse Blood Pressure Respiratory Rate SP02 Pain Height Weight Body Mass Index Source November 30, 2023 05:00 PM 71 119/76 18 0 [facility] November 30, 2023 01:02 PM 98 74 180/82 18 4 [facility] Social History: Smoking Status (Most current) and Tobacco Use (All prior to encounter date) This section includes the most current, and the historical, smoking and tobacco- related health factors from the [place] facility where the Encounter took place. Current Smoking Status This section includes the most current smoking, or tobacco-related health factor, from the [place] facility where the Encounter took place. Date/Time Current Smoking Status Comment Tristan pastrana Oct 17, 2023 04:53 PM ORYX ADMIT TOBACCO SCREEN NO [facility] Tobacco Use History This section includes a history of the smoking, or tobacco-related health factors, that were collected on or before the date of the Encounter. The data comes from the [place] facility where the Encounter took place. Date/Time Smoking Status/Tobacco Use Comment F nick Oct 17, 2023 03:00 PM ORYX ADMIT TOBACCO SCREEN NO [facility] Dec 31, 2021 03:07 PM ORYX ADMIT TOBACCO SCREEN NO [facility] Apr 06, 2017 11:33 PM QUIT TOBACCO >7 YEARS AGO [facility] Mar 21, 2017 04:29 AM QUIT TOBACCO >7 YEARS AGO [facility] Jan 20, 2014 09:56 AM QUIT TOBACCO >7 YEARS AGO [facility] Jan 02, 2013 01:23 PM QUIT TOBACCO >7 YEARS AGO [facility] May 25, 2010 01:35 PM LIFETIME NON-USER OF TOBACCO [facility] Aug 17, 2009 01:04 PM QUIT TOBACCO >12 M O & <7 YRS AGO [facility] Sep 17, 2008 01:34 PM QUIT TOBACCO >12 M O & <7 YRS AGO [facility] Sep 20, 2006 10:57 AM QUIT TOBACCO >12 M O & <7 YRS AGO [facility] Jun 05, 2006 10:49 AM CURRENT NON-TOBACC O USER-HX OF USE [facility] Jun 05, 2006 10:49 AM TOBACCO TERMINATION STAGE [facility] Jul 14, 2005 11:00 AM CURRENT NON-TOBACC O USER-HX OF USE [facility] Jul 14, 2005 11:00 AM TOBACCO TERMINATION STAGE [facility] Oct 23, 2004 04:56 PM CURRENT NON-TOBACC O USER-HX OF USE [facility] Oct 23, 2004 04:56 PM TOBACCO ACTION STAGE [facility] Apr 07, 2004 10:58 AM CURRENT NON-TOBACC O USER-HX OF USE [facility] Apr 07, 2004 10:58 AM TOBACCO MAINTENANCE STAGE [facility] December 18, 2002 11:17 AM CURRENT TOBACCO USER [facility] December 18, 2002 11:17 AM TOBACCO USE [facility] Apr 07, 2002 02:25 PM CURRENT NON-TOBACC O USER-RECENTLY QUIT quit 3 mo ago [facility] Apr 07, 2002 02:25 PM TOBACCO USE quit 3 mo ago [facility] Nov 19, 2001 10:50 AM CURRENT TOBACCO USER [facility] Jul 16, 2001 08:35 AM CURRENT TOBACCO USER [facility] Jun 18, 2001 08:31 AM CURRENT TOBACCO USER [facility] Jun 18, 2001 08:31 AM TOBACCO USE [facility] Advance Directives: All historical and current Section Date Range: From patient's date of to the date document was created. This section includes ALL of a patient's completed or amended [place] Advance and Rescinded Directives. The entries below indicate that a directive exists for the patient, but an actual copy is not included with this document. The data comes from all [place] facilities. Date Advance Directives Provider Source Feb 18, 2018 ADVANCE DIRECTIVE DISCUSSION CAMILO,EMMETT HURT [facility] Radiology Reports: +/- 30 days of [...] the Encounter. The data comes from all [place] treatment facilities. Date/Time Radiology Report Provider Source November 30, 2023 03:[address] ABDOMEN AND PEL VIS W/CONTRAST: MAURILIO DUQUE [id number] -[id number] M Exm Date: NOVEMBER 30, 2023@15:53 Req Phys: JENNIFER PALOMINO Loc: [facility]PT 2ND SHIFT (R Img Loc: [facility]CT IMAGING [facility] Service: [facility], [facility] [address] [place] [address] (Case [id number] COMPLETE) CT ABDOMEN AND PELVIS W/CONTRAST (CT Detailed) CPT:41286 Contrast Media : Non-ionic Iodinated Reason for Study: groin pain x 5 days and vomiting, hx of multiple hernia repairs Clinical History: Responsible Attending: Sundeep Attending Contact Number: [phone] Resident Contact Number: pt with multiple hernia [...] 30, 2023 Date Verified: NOVEMBER 30, 2023 Director Park E-Sig:/ES/MARYLOU JESSICA MD Report: Case: [id number] CT abdomen and pelvis[address] CT axial images [...] Interpreting Staff: MARYLOU JESSICA MD, STAFF RADIOLOGIST (Director Park) /MARYLOU CABRERA [facility] November 30, 2023 03:[address] 3D RENDERING W INDEPENDENT WORKSTATION POSTPROCESSING: DUNIAMAURILOI CLARKE [id number] -[id number] M Exm Date: NOVEMBER 30, 2023@15:53 Req Phys: JENNIFER PALOMINO Loc: [facility] 2ND SHIFT (R Img Loc: [facility] Service: Unknown [address] [address] (Case [id number] COMPLETE) CT 3D RENDERING W INDEPENDENT WOR(CT Detailed) CPT:40565 Reason for Study: GROIN PAIN Clinical History: Responsible Attending: Sundeep Attending Contact Number: [phone] Resident Contact Number: pt with multiple hernia [...] 05, 2023 Date Verified: DECEMBER 05, 2023 Director Park E-Sig:/ES/MARYLOU JESSICA MD Report: Case: [id number] CT abdomen and pelvis[address] CT axial images [...] Interpreting Staff: MARYLOU JESSICA MD, STAFF RADIOLOGIST (Director Park) /[facility] Encounter Notes: All associated encounter notes This section contains the clinical notes associated to the Encounter. Date/Time Encounter Note(s) Provider Source November 30, 2023 04:36 PM SURGERY CONSULT: LOCAL TITLE: GENERAL SURGERY II CONSULT ST STANDARD TITLE: SURGERY CONSULT DATE OF NOTE: NOVEMBER 30, 2023@16:36 ENTRY DATE: NOVEMBER 30, 2023@16:36:56 AUTHOR: RONNY GUTIERREZ EXP COSIGNER: CHON MCMAHON URGENCY: STATUS: COMPLETED GENERAL SURGERY II CONSULT H&P ==== HPI: 73 YEAR OLD MALE with PMHx significant for trigeminal neuralgia, HTN, DM, previous s/p left orchiectomy and pertinent surgical history of open bilateral inguinal hernia repair with Mesh in 11/2022 followed by right sided recurrence s/p open recurrent right inguinal hernia repair with overlying mesh in 03/17/2023 who is now s/p right groin exploration with cyst excision on 09/10/[address] De La Cruz. Today, he presents to the ED with 5 day history of right sided groin pain and associated nausea with one episode of emeiss on sunday (4 days ago). Patient reports this pain has happened before. Has been having regular BMs, denies any other obstructive symptoms other than nasuea and 1x emesis 4 days ago. Denies diarrhea. Patient reports his pain is located inferior to his previous groin incision. Tender to touch. Denies any sick contacts. Last seen in clinic for post-op visit on 09/27/23 for his right groin exploratrion with cyst removal where he reported significant improvemnet in his pain symptoms compared to preoperatively. Recently admitted to the hospital for 7 days after being diagnosed with pneumonia. Past Medical HX: 1) Benign essential hypertension (SNOMED CT 7342189) 2) Left trigeminal neuralgia (SNOMED CT [id number]) 3) GERD - Gastro-esophageal reflux disease (SNOMED CT 368186868) 4) Chronic obstructive lung disease (SNOMED CT 31745242) 5) LBP - Low back pain (SNOMED CT 619517755) 6) Knee pain (SNOMED CT 97685556) 7) Chest pain 8) Hip joint pain 9) Candidiasis of the esophagus 10) Parotitis 11) Cervicalgia 12) Long-term current use of opiate analgesic drug 13) Diabetes Mellitus Type 2 (SCT 31115067) 14) Inguinal hernia 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 21) Exposure to potentially hazardous substance Past Surgical HX: ROS: Review of systems as per HPI and additionally notable for Constitutional: No fever, No weakness/ fatigue Cardiovascular: No chest pain, No palpitations Respiratory: No shortness of breath, No cough Genitourinary: No dysuria, No polyuria, + groin pain Neurology: No headache, No tremors Musculoskeletal: No joint pain, No back pain Skin: No rash, No itching Psychiatric: No anxiety, No depression ALLERGIES: LISINOPRIL, FENTANYL, COCONUTS MEDS: ACTIVE INPT MEDS: 1) ONDANSETRON INJ,SOLN IVP ONE-TIME 4MG/2ML 2) MORPHINE SULFATE (UD) INJ IVP ONE-TIME 2MG/1ML 3) SODIUM CHLORIDE 0.9% INJ,SOLN IV ACTIVE OUTPATIENT MEDS: Active Outpatient Medications (including Supplies): Active Outpatient Medications Status ======= 1) ALBUTEROL 90MCG (CFC-F) 200D ORAL INHL [...] A ACTIVE DAY TO LOWER BLOOD PRESSURE SOCIAL: PHYSICAL EXAM: GENERAL: No acute distress NEURO: Alert and oriented x4, moving all 4 extremities HEART: Normal rate, regular rhythm LUNGS: Normal work of breathing on room air ABDOMEN: Soft, non-tender, protuberant abdomen. R groin minimally tender to palpation. No obvious recurrence of right sided hernia with valsavla or coughing maneuvers. EXT: Warm and well-perfused LABS: CHEM 7: SODIUM 136 mEq/L 11/30/2023 13:10 POTASSIUM 3.6 mEq/L 10/19/2023 06:00 CHLORIDE 104 mEq/L 11/30/2023 13:10 UREA NITROGEN 13.7 mg/dL 11/30/2023 13:10 CREATININE 0.99 mg/dL 11/30/2023 13:10 CALCIUM 10.0 mg/dL 11/30/2023 13:10 CARBON DIOXIDE 19 L mEq/L 11/30/2023 13:10 GLUCOSE 102 H mg/dL 11/30/2023 13:10 EGFR (CKD-EPI 2020) 79.4 11/30/2023 13:10 WBC: 8.4 10*3/uL (11/30/23 13:10) HGB: HGB 16.8 g/dL 11/30/2023 13:10 HCT: 51.7 % H (11/30/23 13:10) PLATELETS: PLT 234 10*3/uL 11/30/2023 13:10 ASSESSMENT/PLAN: Mr. Oneal is a 73 year old man with73 YEAR OLD MALE with PMHx significant for trigeminal neuralgia, HTN, DM, previous s/p left orchiectomy and pertinent surgical history of open bilateral inguinal hernia repair with Mesh in 11/2022 followed by right sided recurrence s/p open recurrent right inguinal hernia repair with overlying mesh in 03/17/2023 who is now s/p right groin exploration with cyst excision on 09/10/[address] De La Cruz. Marci presents to the ED today with 5 day groin pain and nausea with concerns for recurrence. No obstructive symptoms. Physical exam without evidence of recurrence. CT Abd/Pelvis obtained, no obvious signs of recurrence requiring operative interventions. - No acute surgical intervention at this time. - patient can f/u outpatient as needed - if marci were to start showing signs of obstruction - constipation, persistent emesis, etc would recommend coming to ED. /radha/ RONNY GUTIERREZ General Surgery Resident Signed: 11/30/2023 17:29 /radah/ CHON MCMAHON Staff Physician - General Surgery Cosigned: 12/03/2023 09:08 RONNY GUTIERREZ [facility]
--- OUTSIDE RECORDS SUMMARY | 2024-11-02 11:54 | XMS_ITS ---
[place] HOSPITALIZATION [facility] Encounter Summary Created on: November 02, 2024 MAURILIO DUQUE : 1950 Sex: Male Author Name [facility] [place] Organization [facility] [place] [facility] [place] Address [address] [place] [address] Care Team Providers Care Car Washer Name Role Phone NATALIO BRIDGES [facility] Insurance Providers: All historical and current [...] PART A Oct 28, 2001 PART A [id number] Petra DUQUE PATIENT MEDICARE (WNR) MEDICARE (M) PART A Oct 28, 2001 PART A [id number] [phone] Petra DUQUE PATIENT MEDICARE (WNR) MEDICARE (M) PART B Oct 28, 2001 PART B [id number] Petra DUQUE PATIENT Selected Encounter This section includes the information on record at [place] for the Encounter. Date/Time Encounter Type Encounter Description Reason Pro vider Source May 02, 2024 06:15 PM Inpatient Visit HOSPITALIZATION ICD-10-CM Z48.815 Encntr for surgical aftcr following surgery on the [facility] [place] AM, III IHErnie Encounter Template Text not used by [place] Assessments - Encounter Diagnoses This section includes the primary and secondary diagnoses documented for the Encounter. Date/Time Primary/Secondary Diagnosis Diagnosis Name Provider Source May 03, 2024 10:11 AM Diagnosis for Length of Stay Unilateral inguinal hernia, w/o obst or gangrene, recurrent [facility] May 03, 2024 10:11 AM SECONDARY Chronic obstructive pulmonary disease, unspecified [facility] May 03, 2024 10:11 AM SECONDARY Encntr for surgical aftcr following surgery on the [facility] May 03, 2024 10:11 AM SECONDARY Essential (primary) hypertension [facility] May 03, 2024 10:11 AM SECONDARY Gastro-esophageal reflux disease without esophagitis [facility] May 03, 2024 10:11 AM SECONDARY Type 2 diabetes mellitus without complications [facility] Plan of Treatment: Future Appointments (+ 6 months) and Future Tests (+/- 45 days) The Plan of Treatment section includes future care activities for the patient [facility] all [place] [facility]. This section includes future appointments [...] 06, 2024 03:30 PM AMBULATORY - MEDICINE [facility] May 19, 2024 11:00 AM AMBULATORY - MEDICINE [facility] May 22, 2024 09:30 AM AMBULATORY - SURGERY . L [facility] May 27, 2024 09:30 AM AMBULATORY - NONE [facility] Jul 11, 2024 02:00 PM AMBULATORY - NONE [facility] Aug 07, 2024 07:30 AM AMBULATORY - NONE [facility] Aug 15, 2024 10:30 AM AMBULATORY - MEDICINE [facility] Sep 04, 2024 01:30 PM AMBULATORY - MEDICINE [facility] Sep 05, 2024 10:00 AM AMBULATORY - NONE [facility] Sep 18, 2024 12:20 PM AMBULATORY - MEDICINE [facility] Sep 22, 2024 11:30 AM AMBULATORY - NONE [facility] Oct 27, 2024 11:15 AM AMBULATORY - MEDICINE [facility] Lab Results: +/- 30 [...] Range Comment May 03, 2024 06:10 AM [facility] GLUCOSE,BLOOD-poct (STL) Specimen Type: BLOOD Comment: Test Performed by: [id number] Meter #: [id number] Ordering Provider: PALMA WASHBURN III Report Released Date/Time: May 03, 2024 06:30 AM Reporting Lab: [address] [address] Performing Lab: [address] [address] GLUCOSE,BLOOD- poct (STL) 107 mg/dL H 72-99 May 02, 2024 09:17 PM [facility] GLUCOSE,BLOOD-poct (STL) Specimen Type: BLOOD Comment: Test Performed by: [id number] Meter #: [id number] Ordering Provider: PALMA WASHBURN III Report Released Date/Time: May 02, 2024 10:39 PM Reporting Lab: [address] [address] Performing Lab: [address] [address] GLUCOSE,BLOOD- poct (STL) 122 mg/dL H 72-99 May 02, 2024 07:15 PM [facility] MRSA SURVL NARES DNA [...] May 02, 2024 07:37 PM Reporting Lab: [address] [address] Performing Lab: [address] [address] MRSA SURVL NARES DNA Negative Negative May 02, 2024 06:35 PM [facility] GLUCOSE,BLOOD-poct (STL) Specimen Type: BLOOD Comment: Test Performed by: [id number] Meter #: [id number] Ordering Provider: PALMA WASHBURN III Report Released Date/Time: May 02, 2024 06:47 PM Reporting Lab: [address] [address] Performing Lab: [address] [address] GLUCOSE,BLOOD- poct (STL) 107 mg/dL H 72-99 May 02, 2024 04:15 PM [facility] GLUCOSE,BLOOD-poct (STL) Specimen Type: BLOOD Comment: Test Performed by: [id number] Meter #: [id number] Ordering Provider: FILI EDWARDS Report Released Date/Time: May 02, 2024 04:26 PM Reporting Lab: [address] [address] Performing Lab: [address] [address] GLUCOSE,BLOOD- poct (STL) 99 mg/dL 72-99 May 02, 2024 09:47 AM [facility] GLUCOSE,BLOOD-poct (STL) Specimen Type: BLOOD Comment: Test Performed by: [id number] Meter #: [id number] Ordering Provider: FILI EDWARDS Report Released Date/Time: May 02, 2024 10:02 AM Reporting Lab: [facility] [address] [facility] [address] Performing Lab: [facility] [address] [facility] [address] GLUCOSE,BLOOD- poct (STL) 104 mg/dL H 72-99 Apr 22, 2024 10:25 AM [facility] COMPREHENSIVE METABOLIC PANEL Specimen Type: PLASMA Comment: K result may show a positive bias due to hemolysis. Specimen slightly hemolyzed. Ordering Provider: CHON COULTER Report Released Date/Time: Apr 22, 2024 10:03 AM Reporting Lab: [facility] [address] [facility] [address] Performing Lab: [place] [address] [facility] [address] CREATININE 0.93 mg/dL 0.7-1.3 UREA NITROGEN 10.6 [...] 85.6 >60 Apr 22, 2024 10:25 AM [facility] CBC Specimen Type: BLOOD No comment entered. Ordering Provider: CHON COULTER Report Released Date/Time: Apr 22, 2024 10:03 AM Reporting Lab: [facility] [address] [facility] [address] Performing Lab: [facility] [address] [facility] [address] WBC 7.2 10*3/uL 3.6-11.2 RBC 5.52 10*6/uL [...] Source May 02, 2024 10:58 PM 7 [facility] May 02, 2024 09:30 PM 97.9 66 165/78 20 98 8 [facility] May 02, 2024 08:15 PM 4 [facility] May 02, 2024 07:15 PM 7 [facility] May 02, 2024 06:39 PM 7 [facility] Social History: Smoking Status (Most current) and Tobacco Use (All prior to encounter date) This section includes the most current, and the historical, smoking and tobacco- related health factors from the [facility] where the Encounter took place. Current Smoking [...] document. The data comes from all [facility]. Date Advance Directives Provider Source Feb 18, 2018 ADVANCE DIRECTIVE DISCUSSION EMMETT CAMILO [facility] Radiology Reports: +/- 30 days of the [...] the Encounter. The data comes from all [place] treatment facilities. Date/Time Radiology Report Provider Source Apr 22, 2024 10:54 AM CHEST X-RAY, 2 VIE WS: MAURILIO DUQUE [id number] -1950 M Exm Date: APR 22, 2024@10:54 Req Phys: CHON COULTER Loc: -ANE PREOP EVAL 1 (Req'g Lo Img Loc: [facility] SUITE Service: Unknown [facility], [address] [place] [address] (Case [id number] COMPLETE) CHEST X-RAY, 2 VIEWS (RAD Detailed) CPT:41046 Reason for Study: preop Clinical History: Report Status: Verified Date Reported: APR 22, 2024 Date Verified: APR 22, 2024 Flavor Tank Tender E-Sig:/ES/Jelani Luong MD Report: FINDINGS: The examination was compared with previous examination of September. Heart size is normal. Mediastinal structures appear unremarkable. Both lungs are fully expanded without evidence of pulmonary infiltrates or additional significant findings. Impression: No evidence of acute cardiopulmonary disease. Primary Interpreting Staff: Jelani Luong MD, Radiologist (Flavor Tank Tender) /QMB JELANI LUONG [facility] Pathology Reports: +/- 30 days of [...] the Encounter. The data comes from all [place] treatment facilities. Date/Time Pathology Report Provider Source [...] (Received May 05, 2024 09:21): Caterina HERNANDEZ RESEVOIR WENDY) - - - - - - [...] specimen is for gross examination only. DIAGNOSIS: REWORKER, REMOVAL: - REWORKER, CONSISTENT WITH INFLATABLE PENILE PROSTHESIS RESERVOIR (IPP-RESERVOIR) (GROSS EXAMINATION ONLY) /radha/ IVAN CASTILLO M.D., PH.D. PATHOLOGIST Signed May 05, 2024@10:41 Performing Laboratory: Surgical Pathology Report Performed By: [address]# [id number] [address] [place] [address] $FTR - - - - - - [...] - - MAURILIO DUQUE STANDARD FORM 515 ID:[id number] SEX:M :1950 AGE: 73 LOC:[facility] PCP: Natalio Bridges MD /bhupendra CASTILLO M.D., PH.D. PATHOLOGIST Signed: 05/05/2024 10:41 IVAN CASTILLO [facility] Encounter Notes: All associated encounter notes This section contains the clinical notes associated to the Encounter. Date/Time Encounter Note(s) Provider Source May 03, 2024 06:35 PM NURSING TRANSFER SUMMARIZATION DISCHARGE NOTE: LOCAL TITLE: [place] DISCHARGE/TRANSFER SUMMARY STL STANDARD TITLE: NURSING TRANSFER SUMMARIZATION DISCHARGE NOTE DATE OF NOTE: MAY 03, 2024@18:35 ENTRY DATE: MAY 03, 2024@18:35:32 AUTHOR: PETE HENSLEY EXP COSIGNER: URGENCY: STATUS: COMPLETED DISCHARGE - TRANSFER SUMMARY Action: Discharge Diagnosis: Last Admission: 05/02/24 6:15:06 pm Admit Dx: S/P ROBTIC INJUINAL HERNIA Age: 73 Allergies: LISINOPRIL, FENTANYL, COCONUTS Patient Condition: Stable Vital Signs: Temperature: 97.5 F [36.4 C] (05/03/2024 09:07) Pulse: 65 (05/03/2024 09:07) Respiration: 20 (05/03/2024 09:07) Blood Pressure: 136/77 (05/03/2024 09:07) Pain: 0 (05/03/2024 09:07) Fall Risk Assessment Score: 35 Fall Risk Level: Low Risk LEVEL OF LIFT REQUIRED: No assistance Safe Patient Handling - Patient Mobility Assessment Tool Isolation: No Precautions: None Orientation: x3 Hygiene: Self Care Nutrition: Regular diet Special needs: Assistance: Independent Bowel/Bladder: Date of last bowel movement: Apr Defecation: Normal Able to void: YES Continent: YES Catheter: No Wound / Skin Condition: Assessment Type: SKIN REINSPECTION/REASSESSMENT SKIN INSPECTION: Skin Color: Usual for ethnicity Skin Temperature: Warm Skin Moisture: Normal Skin Turgor: Elastic (normal/immediate) Mason Skin Assessment: The patient's Mason Scale Score is 20. The patient is considered not at risk for development of pressure ulcers/injuries. Sensory perception -- ability to respond meaningfully to pressure-related discomfort No impairment. Moisture -- degree to which skin is exposed to moisture Occasionally moist. Activity -- ability to change and control body position Walks occasionally. Mobility -- ability to change and control body position Slightly limited. Nutrition -- usual food intake patterns Excellent. Friction and shear No apparent problem. INTERVENTIONS: The pressure injury interventions were not needed - patient/resident is not at risk. RISK FACTORS THAT INCREASE RISK FOR DEVELOPING PRESSURE INJURIES The patient/resident does not have any additional risk factors. SKIN ALTERATIONS: Pressure Ulcer/Injury Documentation from the past year: No data available SKIN ALTERATIONS: Wound Documentation from the past year: Skin Assessment 09/11/2023 Skin Integrity - Wound right groin incision 09/10/2023 Skin Integrity - Wound Wound - other than pressure ulcer/injury (includes open surgical wounds/incisions): Location: right groin/abdo No Edema Wound drainage none. STANDARD OF CARE / PRACTICE IMPLEMENTED: POc's dc'd Indicate status at Discharge/Transfer: Stabilized Flu Shot Given: No F/U w/ PCP Pneumococcal Shot Given: No F/U w/ PCP Patient received Pneumococcal vaccine prior to admission MRSA Discharge Swab Done: No Reason: Per new protocol Discharged/Transfered to: Own home without home care services Accompanied by (Name & Relationship): N/A Next of Kin notified: NO Discharge/Transfer Mode: Ambulatory Discharged/Transferred with: Written Discharge Instructions Medications Return Appointments The [place] was informed of the date and time of his/her follow-up mental health appointments: NO The was provided the opportunity to cancel or change his/her scheduled follow-up mental health appointments: NO The was educated about what to do and who to contact should he/she need to cancel the follow-up mental health appointment: NO Clothing / Valuables returned: Yes Describe: Vet packed own belongings Prosthetics with patient: Dentures/Partials with patient: None Glasses with patient: NA Other: Printed MD Instruction sheet with medication list reviewed and given to the patient/caregiver. Patient/Caregiver verifies medication list is complete and accurate. Patient/Caregiver appeared ready for instruction (good eye contact, appropriate questions, active participation, etc) Person(s) who received education: Patient Education Topic/Teaching Needs: Disease/Condition Inguinal hernia repair Medication new meds Diet/Nutrition as tolerated Follow-up Instructions f/u appts Methods used Included: A copy of the Discharge Instructions Health Summary given to patient/caregiver and signed by patient/guardian. Patient's medications were reviewed and reconciled by discharge team. Teaching outcomes: Good level of understanding Comment: Vet vocalizes understanding /es/ PETE RAMEY RN REGISTERED NURSE Signed: 05/03/2024 18:46 PETE HENSLEY [facility] May 03, 2024 05:12 PM NURSING INPATIENT NOTE: LOCAL TITLE: [facility] NURSING FREQUENT DOCUMENTATION STANDARD TITLE: NURSING INPATIENT NOTE DATE OF NOTE: MAY 03, 2024@17:12 ENTRY DATE: MAY 03, 2024@17:12:30 AUTHOR: PETE HENSLEY EXP COSIGNER: URGENCY: STATUS: COMPLETED Version 2.4 Charting in accordance with [place] APPROVED [place] STANDARD (DEAES) ACUTE INPATIENT/REHABILITATION NURSING ADMISSION SCREENING, ASSESSMENT, AND STANDARDS OF CARE NATIONAL EARLY WARNING SCORE (NEWS) The vital signs below were used for scoring: Temperature: 97.5 Pulse: 65 Blood Pressure: 136/77 Respiration: 20 Pulse Oximetry: 92 The NEWS total is 2. 1. Temperature (C/F): Score = 0 36.1 - 38.0 C (96.9 - 100.4 F) 2. Pulse: Score = 0 51-90 3. Respirations: Score = 0 12-20 4. Blood Pressure (Only Systolic BP, mmHg): Score = 0 111-219 5. Pulse Oximetry: Score = 2 92% - 93% 6. Supplemental oxygen in use: Score = 0 No 7. AVPU: Score = 0 Alert Patient Status: Remains on unit /radha/ PETE RAMEY RN REGISTERED NURSE Signed: 05/03/2024 17:13 PETE HENSLEY [facility] May 03, 2024 03:46 PM NURSING INPATIENT NOTE: LOCAL TITLE: [facility] ACUTE INPATIENT NSG SHIFT ASSESSMENT STANDARD TITLE: NURSING INPATIENT NOTE DATE OF NOTE: MAY 03, 2024@15:46 ENTRY DATE: MAY 03, 2024@15:46:14 AUTHOR: PETE HENSLEY EXP COSIGNER: URGENCY: STATUS: COMPLETED Version 2.2 Charting in accordance with [place] APPROVED [place] STANDARD (DEAES) ACUTE INPATIENT/REHABILITATION NURSING ADMISSION SCREENING, ASSESSMENT, AND STANDARDS OF CARE ASSESSMENT HANDOFF Bedside report and handoff completed Safety check completed PAIN ASSESSMENT Patient's acceptable pain goal: 0 No pain Are you currently experiencing pain? No: Pain Score: 0 GILBERT FALL SCALE & TIPS PROGRAM Gilbert Fall Scale: The Gilbert Fall scale was performed and score was 35. This is indicative of moderate risk for falls. History of falling: immediate or within 3 months? No Secondary diagnosis: Yes Ambulatory aid: None/bedrest/nurse assist Intravenous therapy/Heparin lock: Yes Gait/Transferring: Normal/bed rest/immobile Mental Status: Oriented to own ability/knows own limitations Fall Tailoring Interventions for Patient Safety (TIPS) Fall TIPS initiated with patient: Yes Interventions: Communicate recent fall or risk of harm Fall TIPS reviewed with patient: Yes Interventions: Communicate recent fall or risk of harm ENVIRONMENTAL SAFETY MANAGEMENT Implemented safety standards of care: -E[place]son to unit & environment -Adequate room lighting -Bed in low and locked position -Call light within reach -Personal items within reach -Traffic path in room free of clutter -Non-slip footwear -Upper/half length side rails up for bed mobility -Sensory aids within reach -Encourage patient to utilize sensory support Additional safety measures: Increased frequency of rounding NEUROLOGICAL Neurological Orientation: Oriented x4 Level of Consciousness (AVPU): Alert = Appears aware of and responsive to the environment on their own. Follows commands, opens eyes spontaneously, and tracks objects. Affect/behavior: Cooperative Calm NEUROMUSCULAR/NEUROVASCULAR EXTREMITIES ASSESSMENT Strength: Boat Hand Bilateral: Strong Upper Extremity Bilateral: Full strength Lower Extremity Bilateral: Full strength Sensation: Upper Extremity Sensation Bilateral: Intact Lower Extremity Sensation Bilateral: Intact Temperature: Upper Extremity Temperature Bilateral: Warm Lower Extremity Temperature Bilateral: Warm CARDIOVASCULAR Heart Sounds: Normal (S1S2) Capillary Refill: All 4 extremities, less than or equal to 3 seconds. Peripheral Pulses: All 4 extremities, 3+ normal. Edema: None RESPIRATORY Respirations: Unlabored Pattern: Regular Breath Sounds Auscultated: Anterior and posterior Left Upper Lobe: Clear Right Upper Lobe: Clear Right Middle Lobe: Clear Left Lower Lobe: Clear Right Lower Lobe: Clear GASTROINTESTINAL Bowel movement reported by patient-unwitnessed Abdominal Description: Rounded Palpation: Soft, Non-tender Bowel Sounds: RUQ: Active LUQ: Active RLQ: Active LLQ: Active GENITOURINARY Elimination: Continent INTEGUMENTARY/SKIN/WOUND - (INCLUDING MASON) SEE NOTE: VAAES SKIN INPECTION/ASSESSMENT MOBILITY Mobility Status: Independent: Able to stand and step without staff assistance Gait: Steady IV LINES Peripheral IV: Line #1: Assessment: Location: Right, Wrist Gauge: 20 Dressing Condition: Clean, dry, intact Site Condition: No redness, swelling, pain Line Status: Patent/infusing PSYCHOSOCIAL Type of Emotional Support Provided: 1:1 discussion, Anticipated outcomes, Ventilation of feelings encouraged /radha/ PETE RAMEY RN REGISTERED NURSE Signed: 05/03/2024 16:07 PETE HENSLEY [facility] May 03, 2024 10:11 AM DISCHARGE SUMMARY: LOCAL TITLE: DISCHARGE OBSERVATION SURGERY ST STANDARD TITLE: DISCHARGE SUMMARY DICT DATE: MAY 03, 2024@09:03 ENTRY DATE: MAY 03, 2024@09:04:04 DICTATED BY: NEW SARMIENTO ATTENDING: CRISPIN CERVANTES URGENCY: routine STATUS: COMPLETED DISCHARGE OBSERVATION SURGERY STL DIAGNOSES: Other: Post robotic right inguinal hernia repair, IPP resevior removal Complications: None Comorbidities: hypertension, diabetes, mellitus, GERD, COPD Reason for Observation Admission: No transportation Outcome: 73-year-old male with a past medical history of hypertension, diabetes, mellitus, GERD, COPD, and a complicated inguinal surgical history who presented for and underwent a robotic right inguinal hernia repair. Postop course was uncomplicated. By POD 1, pt was tolerating regular diet, voiding spontanoeulsy, ambulating without assistance, and pain controlled on oral diet. He was discharged home with plans for outpatient follow up in 3 weeks. DISCHARGE MEDICATIONS: TO HELP YOU UNDERSTAND YOUR DRUG LIST ACTIVE means that you are presently taking these meds PENDING means that the medications have just been renewed or just ordered. HOLD means that the medications are on your list but will not be sent to you unless you or your doctor wants them taken off hold. NON-VA means you are getting the medication from somewhere besides the [facility]. Active Outpatient Medications (including Supplies): Active Outpatient [...] A DAY NEEDED FOR DRY EYE(S) 6) CHLORHEXIDINE GLUCONATE 4% TOP LIQUID APPLY SMALL ACTIVE AMOUNT TO AFFECTED AREA(S) TWICE (WASH BODY THE EVENING BEFORE AND THE MORNING OF SURGERY; USE 1 BOTTLE FOR EACH EPISODE OF BATHING TO REDUCE SKIN BACTERIA; AVOID CONTACT WITH FACE AND PRIVATES. DO NOT SWALLOW) 7) CHOLECALCIF 50MCG (D3-2,000UNIT) TAB TAKE TWO TABLETS ACTIVE BY MOUTH ONCE A DAY FOR VITAMIN D DEFICIENCY. 8) CICLOPIROX 8% TOP SOLN APPLY LIGHTLY TO AFFECTED ACTIVE AREA(S) ONCE A DAY (THIN COAT TO THICK NAILS - FILE DOWN AFTER 1 WEEK) (EXTERNAL USE ONLY) 9) CYCLOBENZAPRINE HCL 10MG TAB TAKE ONE TABLET BY MOUTH ACTIVE THREE TIMES A DAY FOR MUSCLE SPASM MAY CAUSE DROWSINESS. DO NOT DRINK ALCOHOL WHILE TAKING THIS MEDICATION. 10) HYDROCODONE 10/ACETAMINOPHEN 325MG TAB TAKE 1 TABLET ACTIVE BY MOUTH EVERY 6 HOURS NEEDED FOR PAIN CAUTION: DO NOT EXCEED 4000MG PER DAY ACETAMINOPHEN (APAP) FROM ALL MEDS. DO NOT TAKE WITH OXYCODONE 11) METFORMIN HCL 1000MG TAB TAKE ONE TABLET BY MOUTH ACTIVE TWICE A DAY WITH MEALS FOR BLOOD SUGAR CONTROL. AVOID ALCOHOL. DISCONTINUE BEFORE GETTING XRAY DYE. 12) NALOXONE HCL 8MG/SPRAY SOLN NASAL SPRAY USE 1 SPRAY ACTIVE (8MG) INTO ONE NOSTRIL ONLY ONE-TIME FOR OPIOID OVERDOSE DO NOT PRIME NASAL SPRAY. SPRAY ONE DOSE IN ONE NOSTRIL, GIVE ADDITIONAL DOSE IF PATIENT DOES NOT START BREATHING WITHIN 2-3 MINUTES OR STOPS BREATHING AGAIN. CALL 911. IF USED, NOTIFY PROVIDER. 13) PANTOPRAZOLE NA 40MG EC TAB TAKE ONE TABLET BY MOUTH ACTIVE TWO TIMES A DAY BEFORE MEALS TO LOWER STOMACH ACID - TAKE 30 MINUTES BEFORE MEAL(S) 14) POLYETHYLENE GLYCOL 3350 ORAL PWDR MIX AND DRINK 1 ACTIVE CAPFUL BY MOUTH ONCE A DAY FOR CONSTIPATION (MEASURE WITH CAP AND MIX IN 8 OZ OF WATER) 15) PREGABALIN 200MG ORAL CAP TAKE ONE CAPSULE BY MOUTH ACTIVE THREE TIMES A DAY FOR NERVE PAIN 16) PSYLLIUM ORAL PWD MIX AND DRINK 1 TEASPOONFUL BY ACTIVE MOUTH ONCE A DAY FOR FIBER SUPPLEMENTATION MIX IN GLASS OF WATER/JUICE. FLAVOR SUBSTITUTIONS MAY/WILL OCCUR AND SPECIFIC VARIETIES WILL NOT BE PROVIDED. 17) SODIUM FLUORIDE 1.1% TOOTHPASTE USE DIRECTED BY ACTIVE MOUTH ONCE A DAY TOOTHPASTE (DO NOT SWALLOW) 18) TAMSULOSIN HCL 0.4MG CAP TAKE ONE CAPSULE BY MOUTH ACTIVE EVERY EVENING APPROXIMATELY 30 MINUTES AFTER THE SAME MEAL EACH DAY 19) TOPIRAMATE 50MG TAB TAKE ONE TABLET BY MOUTH TWICE A ACTIVE DAY FOR SEIZURES OR MIGRAINE PROPHYLAXIS 20) VALSARTAN 320MG TAB TAKE ONE TABLET BY MOUTH ONCE A ACTIVE DAY TO LOWER BLOOD PRESSURE Pending Outpatient Medications Status ========= 1) ACETAMINOPHEN 325MG TAB TAKE TWO TABLETS BY MOUTH PENDING EVERY 6 HOURS CAUTION: DO NOT EXCEED 4000MG PER DAY ACETAMINOPHEN (APAP) FROM ALL MEDS. 2) IBUPROFEN 600MG TAB TAKE ONE TABLET BY MOUTH EVERY 6 PENDING HOURS TAKE WITH FOOD. 3) OXYCODONE HCL 5MG TAB TAKE ONE-HALF TABLET BY MOUTH PENDING ONCE A DAY NEEDED MAY CAUSE CONSTIPATION 4) POLYETHYLENE GLYCOL 3350 ORAL PWDR MIX AND DRINK 1 PENDING CAPFUL BY MOUTH ONCE A DAY (MEASURE WITH CAP AND MIX IN 8 OZ OF WATER) 24 Total Medications - Please take only those medications on the above list. - At your next appointment, please remember to bring all of your medication bottles with you. Please include any vitamins, herbal supplements & over the counter medications. - If you have any further questions regarding your medications, please call your primary care clinic or if after hours, please call and ask sifter operator to connect to Nurse Talk. NEW MEDICATIONS (and indications): Tylenol, Motrin, Oxycodone, Miralax The following changes were made to the medications you were taking prior to this hospitalization: None These medications have been stopped during your hospitalization (and reason why): None At your next appointment, please remember to bring all of your medication bottles with you Medication Reconciliation: I have discussed active and pending medications with the patient and/or care asst. I have made changes as appropriate...................YE S DISCHARGE DIETARY INSTRUCTIONS: Your current weight is: 210.1 lb [95.30 kg] (05/03/2024 05:25) No Dietary Instructions If you have questions, contact the dietitians at . DISCHARGE PHYSICAL ACTIVITY INSTRUCTIONS: Other (specify below): Please do not lift anything more than 10 pounds for 6 weeks. Youre activity will be limited for several weeks, this will be further discussed in clinic. OK to walk and climb stairs. WOUND MANAGEMENT: OK to shower as usual, remove clear bandages and gauze over your incisions. Do not remove the skin tape, they will fall off in about 2 weeks. Allow warm soapy water to run over the taped incisions. Pat dry. No need to cover with dressing. TOBACCO CESSATION EDUCATION/COUNSELING: The patient states he/she is not a tobacco user. WORSENING and/or DANGEROUS SYMPTOMS TO REPORT (Phys. entry required): Contact your Primary Care Physician Sunday through Sunday 8:00a.m. - 4:00p.m. After normal business hours the [place] Telephone Care Program is available (Sunday through Sunday 4p.m. to 8a.m.; Weekends and Holidays) at [phone] ext. [phone]. DISCHARGE INTRUCTIONAL MATERIALS *To be printed by Nurse and provided to patient FUTURE APPOINTMENT(S): To reschedule [facility] appointments call and use extension below. Date/time Clinic Phone number 05/19/24 11:00 am [facility]NOCO PACT 1 PCP 05/22/24 9:30 am [facility]GEN SURG II CLINIC [phone] 08/15/24 10:30 am [facility]CARDIOLOGY HOUSE WIRER 09/04/24 1:30 pm [facility] D[facility]M [facility] [phone] 09/18/24 12:20 pm [facility]PULMONARY LOISELLE 12/16/24 1:00 pm [facility]DENTAL HYG 02/05/25 10:00 am [facility]OPTOMETRY Follow-up with your Primary Care Physician: NATALIO BRIDGES in 2 weeks *This listing may be incomplete. CONDITION OF PATIENT AT DISCHARGE: Stable Time Spent: 31-[address] OF DISPOSITION: Home OTHER (Include employment status): retired NOTE: If you are having feelings of Depression or Emotional Distress, or feel you just need to talk with someone, please call PRESS 1. Verified By MRT/KIRSTIN /radha/ NWE SARMIENTO Resident Physician Signed: 05/05/2024 16:01 /radha/ CRISPIN CERVANTES MD Staff Physician, General Surgery I Cosigned: 05/07/2024 08:17 NEW SARMIENTO [facility] May 03, 2024 09:43 AM ADMINISTRATIVE NOTE: LOCAL TITLE: BENEFICIARY TRAVEL (BT) STANDARD TITLE: ADMINISTRATIVE NOTE DATE OF NOTE: MAY 03, 2024@09:43 ENTRY DATE: MAY 03, 2024@09:44:54 AUTHOR: VITO BIRD COSIGNER: CRISPIN CERVANTES URGENCY: STATUS: COMPLETED BENEFICIARY TRAVEL COMMON CARRIER: This request is subject to Beneficiary Travel eligibility requirements and administrative approval. * can safely be transported or transfer in and out of a private vehicle, taxi, bus or other common carrier (public transportation). *Or [place] does not need to be on a stretcher during transport. *Or [place] does not require restraints during transport. *Or [place] does not require direct supervision during transport. *Or [place] does not require acute medical care during transport. Suggested medically appropriate forms of transportation: Taxi/Hired Car Type of care being provided: Inpatient Admission/Discharge Date travel is to commence: Apr supervisor diagnostic time (if needed): 11:00 Estimated time frame will require transportation: One Time From: Other Location: Comment: [facility]ATT To: (Facility Name): [address] [place] [address] City/State: [place] [address] Does the [place] have a certified welder or need the assistance of an attendant? No Does the travel with a service animal? Jojo /radha/ VITO BIRD DO Resident Physician, General Surgery II Signed: 05/03/2024 09:47 /bhupendra CERVANTES MD Staff Physician, General Surgery I Cosigned: 05/04/2024 09:09 VITO BIRD [facility] May 03, 2024 08:15 AM NURSING INPATIENT NOTE: LOCAL TITLE: [facility] NURSING FREQUENT DOCUMENTATION STANDARD TITLE: NURSING INPATIENT NOTE DATE OF NOTE: MAY 03, 2024@08:15 ENTRY DATE: MAY 03, 2024@12:36:28 AUTHOR: EWELINA DANEILLE COSIGNER: URGENCY: STATUS: COMPLETED Version 2.4 Charting in accordance with [place] APPROVED [place] STANDARD (DEAES) ACUTE INPATIENT/REHABILITATION NURSING ADMISSION SCREENING, ASSESSMENT, AND STANDARDS OF CARE ACTIVITIES OF DAILY LIVING Hygiene ADLs: Dressing: Upper Body: Independent Lower Body: Independent Hand Hygiene: Performed post toileting Performed pre meals/snacks Oral Care: Non-ventilator patient: Patient teeth brushed: Independently The was educated that poor oral hygiene increases the risk of hospital acquired pneumonia and dental problems like gingivitis and tooth decay. was educated using their preferred method and verbalized understanding. Personal Care: Independent ACTIVITY/MOBILIZATION Mobility Status: Independent: Able to stand and step without staff assistance Gait: [facility] - Highest Level of Mobility achieved this shift: 6 - Walked 10 steps or more (walked to restroom) ENVIRONMENTAL SAFETY MANAGEMENT Implemented safety standards of care: -Eidson to unit & environment -Adequate room lighting -Bed in low and locked position -Call light within reach -Personal items within reach -Traffic path in room free of clutter -Non-slip footwear -Upper/half length side rails up for bed mobility -Sensory aids within reach -Encourage patient to utilize sensory support Additional safety measures: GASTROINTESTINAL No bowel movement reported by patient Elimination: Continent GENITOURINARY Elimination: Continent ORAL INTAKE (PERCENTAGE OF MEAL EATEN) Breakfast: 76% - 100% /es/ EWELINA DANIELLE DERMATOLOGY NURSE PRACTITIONER TRACTOR DRIVER TEAMSTER Signed: 05/03/2024 12:40 EWELINA DANIELLE [facility] May 03, 2024 06:33 AM NURSING INPATIENT NOTE: LOCAL TITLE: [facility] NURSING FREQUENT DOCUMENTATION STANDARD TITLE: NURSING INPATIENT NOTE DATE OF NOTE: MAY 03, 2024@06:33 ENTRY DATE: MAY 03, 2024@06:33:53 AUTHOR: AUTUMN QUEEN EXP COSIGNER: URGENCY: STATUS: COMPLETED Version 2.4 Charting in accordance with [place] APPROVED [place] STANDARD (DEAES) ACUTE INPATIENT/REHABILITATION NURSING ADMISSION SCREENING, ASSESSMENT, AND STANDARDS OF CARE ACTIVITIES OF DAILY LIVING Hygiene ADLs: Dressing: Upper Body: Independent Lower Body: Independent Lower Body: Minimal assist Eating: Independent Foot Care: Inspection Hand Hygiene: Performed post toileting Performed pre meals/snacks Oral Care: Non-ventilator patient: Patient teeth brushed: Independently The [place] was educated that poor oral hygiene increases the risk of hospital acquired pneumonia and dental problems like gingivitis and tooth decay. was educated using their preferred method and verbalized understanding. Pericare: Personal Care: Patient declined Comment: refused said would bath at home discharge Toileting: Independent ACTIVITY/MOBILIZATION Mobility Status: Independent: Able to stand and step without staff assistance Gait: [facility] Level of Mobility achieved this shift: 6 - Walked 10 steps or more (walked to restroom) ENVIRONMENTAL SAFETY MANAGEMENT Implemented safety standards of care: -Eidson to unit & environment -Adequate room lighting -Bed in low and locked position -Call light within reach -Personal items within reach -Traffic path in room free of clutter -Non-slip footwear -Upper/half length side rails up for bed mobility -Sensory aids within reach -Encourage patient to utilize sensory support GASTROINTESTINAL No bowel movement reported by patient Elimination: Continent GENITOURINARY Elimination: Continent Color/Characteristic: Yellow /es/ AUTUMN QUEEN DERMATOLOGY NURSE PRACTITIONER TRACTOR DRIVER TEAMSTER Signed: 05/03/2024 06:38 AUTUMN QUEEN [facility] May 03, 2024 05:34 AM NURSING INPATIENT NOTE: LOCAL TITLE: VAAES ACUTE INPATIENT NSG SHIFT ASSESSMENT STANDARD TITLE: NURSING INPATIENT NOTE DATE OF NOTE: MAY 03, 2024@05:34 ENTRY DATE: MAY 03, 2024@05:34:42 AUTHOR: CARLOS HERNÁNDEZ COSIGNER: URGENCY: STATUS: COMPLETED Version 2.2 Charting in accordance with [place] APPROVED [place] STANDARD (VAAES) ACUTE INPATIENT/REHABILITATION NURSING ADMISSION SCREENING, ASSESSMENT, AND STANDARDS OF CARE REASSESSMENT PAIN ASSESSMENT Patient's acceptable pain goal: 0 No pain Are you currently experiencing pain? No: Pain Score: 0 ENVIRONMENTAL SAFETY MANAGEMENT Implemented safety standards of care: -Eidson to unit & environment -Adequate room lighting -Bed in low and locked position -Call light within reach -Personal items within reach -Traffic path in room free of clutter -Non-slip footwear -Upper/half length side rails up for bed mobility -Sensory aids within reach -Encourage patient to utilize sensory support NEUROLOGICAL Neurological Orientation: Oriented x4 Level of Consciousness (AVPU): Alert = Appears aware of and responsive to the environment on their own. Follows commands, opens eyes spontaneously, and tracks objects. NEUROMUSCULAR/NEUROVASCULAR EXTREMITIES ASSESSMENT Strength: Boat Hand Bilateral: Strong Upper Extremity Bilateral: Full strength Lower Extremity Bilateral: Full strength Temperature: Upper Extremity Temperature Bilateral: Warm Lower Extremity Temperature Bilateral: Warm CARDIOVASCULAR Heart Sounds: Normal (S1S2) Heart Rate/Rhythm (without cardiac monitor technician): Regular RESPIRATORY Respirations: Unlabored Pattern: Regular GASTROINTESTINAL Elimination: Continent GENITOURINARY Elimination: Continent INTEGUMENTARY/SKIN/WOUND - (INCLUDING MASON) SEE NOTE: VAAES SKIN INPECTION/ASSESSMENT /es/ CARLOS HERNÁNDEZ REGISTERED NURSE Signed: 05/03/2024 05:37 CARLOS HERNÁNDEZ [facility] May 03, 2024 05:32 AM NURSING TREATMENT PLAN NOTE: LOCAL TITLE: [facility] PLAN OF CARE STANDARD TITLE: NURSING TREATMENT PLAN NOTE DATE OF NOTE: MAY 03, 2024@05:32 ENTRY DATE: MAY 03, 2024@05:32:34 AUTHOR: CARLOS HERNÁNDEZ EXP COSIGNER: URGENCY: STATUS: COMPLETED Plan of Care and Discharge Plan (nurse) TREATMENT PLAN Patient involved in making decisions about their care, treatment and plan for discharge Yes Date: Is the patient an elopement risk: No Does the patient have potential or actual alteration in skin integrity? No. Is patient at risk for aspiration related to signs/symptoms of dysphagia? No. Does patient have pain and/or chest pain? Yes, Pain NURSING DIAGNOSIS: Alteration in comfort: pain related to Goals: Prior to discharge, patient will:--Maintain or preserve physical mobility during hospital stay--Be able to participate in daily activities, --Achieve acceptable pain level per patient, --Verbalize satisfaction with pain management ongoing, --Be free of injury during hospital stay, --Identify techniques that prevent, decrease pain and improve coping mechanism i.e. relaxation techniques, biofeedback, TV or other diversions, --Patient's subjective perception of discomfort decreases as documented by pain scale or objective indicators such as grimacing, are absent or diminished. Intervention: --Implement and document use of alternative non pharmacological interventions i.e. hot/cold pack, massage, biofeedback, relaxation techniques distraction, etc., --Administer medications per order, --Assess pain characteristics and probable cause(s) i.e. intensity, location, pain level on scale 1-10.(Nursing,Physicians), --Monitor need for and evaluate patient's response to pain medication Q8hr.(Nursing,Physicians), --Encourage verbalization of pain. (Nursing, Physicians), --Provide for patient safety. (Nursing, Physicians), --Provide instruction on causes of pain, appropriate prevention and relief measures (Nursing,Pharmacy,Physicians), --Referral to pain management committee for recommendations Care plan status: Continued Progress toward goals documented continuously through progress notes Patient education: --Normal function and disease process., --Treatment regimen-purpose and effect including: Diet, medications, activity, risk factors, and significant symptoms. /radha/ CARLOS HERNÁNDEZ REGISTERED NURSE Signed: 05/03/2024 05:34 CARLOS HERNÁNDEZ [facility] May 02, 2024 10:05 PM NURSING INPATIENT NOTE: LOCAL TITLE: [facility] NURSING FREQUENT DOCUMENTATION STANDARD TITLE: NURSING INPATIENT NOTE DATE OF NOTE: MAY 02, 2024@22:05 ENTRY DATE: MAY 02, 2024@22:05:52 AUTHOR: AUTUMN QUEEN COSIGNER: URGENCY: STATUS: COMPLETED Version 2.4 Charting in accordance with [place] APPROVED [place] STANDARD (DEAES) ACUTE INPATIENT/REHABILITATION NURSING ADMISSION SCREENING, ASSESSMENT, AND STANDARDS OF CARE PROVIDER NOTIFICATION Provider Name: Marleny Hernández RN Notification Reason: Pain: 8 Other: BP 187/79 /es/ AUTUMN QUEEN CNA TRACTOR DRIVER TEAMSTER Signed: 05/02/2024 22:08 Receipt Acknowledged By: 05/02/2024 22:49 /es/ CARLOS HERNÁNDEZ REGISTERED NURSE AUTUMN QUEEN [facility] May 02, 2024 09:50 PM NURSING INPATIENT NOTE: LOCAL TITLE: [facility] NURSING FREQUENT DOCUMENTATION STANDARD TITLE: NURSING INPATIENT NOTE DATE OF NOTE: MAY 02, 2024@21:50 ENTRY DATE: MAY 02, 2024@22:50:24 AUTHOR: CARLOS HERNÁNDEZ EXP COSIGNER: URGENCY: STATUS: COMPLETED Version 2.4 Charting in accordance with [place] APPROVED [place] STANDARD (DEAES) ACUTE INPATIENT/REHABILITATION NURSING ADMISSION SCREENING, ASSESSMENT, AND STANDARDS OF CARE NATIONAL EARLY WARNING SCORE (NEWS) The following vital measurements were used to complete the NEWS. Measurement DT TEMP PULSE RESP BP POx F(C) (L/MIN)(%) 05/02/2024 21:30 97.9(36.6) 66 20 165/78 98 The NEWS total is 2. 1. Temperature (C/F): Score = 0 36.1 - 38.0 C (96.9 - 100.4 F) 2. Pulse: Score = 0 51-90 3. Respirations: Score = 0 12-20 4. Blood Pressure (Only Systolic BP, mmHg): Score = 0 111-219 5. Pulse Oximetry: Score = 0 96% or greater 6. Supplemental oxygen in use: Score = 2 Yes 7. AVPU: Score = 0 Alert Patient Status: Remains on unit /radha/ CARLOS HERNÁNDEZ REGISTERED NURSE Signed: 05/02/2024 22:52 CARLOS HERNÁNDEZ [facility] May 02, 2024 09:30 PM NURSING NOTE: LOCAL TITLE: [facility] PERSONAL EFFECTS STL STANDARD TITLE: NURSING NOTE DATE OF NOTE: MAY 02, 2024@21:30 ENTRY DATE: MAY 02, 2024@22:53:28 AUTHOR: CARLOS HERNÁNDEZ EXP COSIGNER: URGENCY: STATUS: COMPLETED PERSONAL EFFECTS Hazardous Check: Advised of prohibited hazardous items, Denies hazardous items, No hazardous items observed Medication Check: Denies medication on person Personal Items: Patient/Family advised that [facility] not responsible for loss of any personal effects or valuables., Patient/Family provided with Storage and Handling of Patient Effects letter. (See [facility] 137-06) Patient Funds Disposition: pt has a cell phone with no piecer up, a pair of pants, a shirt, socks, shoes, gold necklaces and about $15 all at the bedside in a plastic pt belonging bag. /radha/ CARLOS HERNÁNDEZ REGISTERED NURSE Signed: 05/02/2024 22:57 CARLOS HERNÁNDEZ [facility] May 02, 2024 09:30 PM NURSING INPATIENT NOTE: LOCAL TITLE: [facility] ACUTE INPATIENT NSG SHIFT ASSESSMENT STANDARD TITLE: NURSING INPATIENT NOTE DATE OF NOTE: MAY 02, 2024@21:30 ENTRY DATE: MAY 02, 2024@22:58:07 AUTHOR: CARLOS HERNÁNDEZ EXP COSIGNER: URGENCY: STATUS: COMPLETED Version 2.2 Charting in accordance with [place] APPROVED [place] STANDARD (DEAES) ACUTE INPATIENT/REHABILITATION NURSING ADMISSION SCREENING, ASSESSMENT, AND STANDARDS OF CARE ASSESSMENT HANDOFF Bedside report and handoff completed Safety check completed PAIN ASSESSMENT Patient's acceptable pain goal: 0 No pain Are you currently experiencing pain? Yes - DVPRS scale used to assess Location: abd [employer] and [employer] Pain Rating Scale (DVPRS): 4 Distracts me, can do usual activities Pain Score: 7 GILBERT FALL SCALE & TIPS PROGRAM Gilbert Fall Scale: The Gilbert Fall scale was performed and score was 0. This is indicative of low risk of falls. History of falling: immediate or within 3 months? No Secondary diagnosis: No Ambulatory aid: None/bedrest/nurse assist Intravenous therapy/Heparin lock: No Gait/Transferring: Normal/bed rest/immobile Mental Status: Oriented to own ability/knows own limitations ENVIRONMENTAL SAFETY MANAGEMENT Implemented safety standards of care: -Eidson to unit & environment -Adequate room lighting -Bed in low and locked position -Call light within reach -Personal items within reach -Traffic path in room free of clutter -Non-slip footwear -Upper/half length side rails up for bed mobility -Sensory aids within reach -Encourage patient to utilize sensory support NEUROLOGICAL Neurological Orientation: Oriented x4 Level of Consciousness (AVPU): Alert = Appears aware of and responsive to the environment on their own. Follows commands, opens eyes spontaneously, and tracks objects. NEUROMUSCULAR/NEUROVASCULAR EXTREMITIES ASSESSMENT Strength: Boat Hand Bilateral: Strong Upper Extremity Bilateral: Full strength Lower Extremity Bilateral: Full strength Sensation: Upper Extremity Sensation Bilateral: Intact Lower Extremity Sensation Bilateral: Intact Temperature: Upper Extremity Temperature Bilateral: Warm Lower Extremity Temperature Bilateral: Warm CARDIOVASCULAR Heart Sounds: Normal (S1S2) Heart Rate/Rhythm (without cardiac monitor technician): Regular Edema: None RESPIRATORY Respirations: Unlabored Pattern: Regular Breath Sounds Auscultated: Anterior and posterior Left Upper Lobe: Clear Right Upper Lobe: Clear Right Middle Lobe: Clear Left Lower Lobe: Clear Right Lower Lobe: Clear GASTROINTESTINAL Elimination: Continent Abdominal Description: Rounded Palpation: Soft, Non-tender Bowel Sounds: RUQ: Active LUQ: Active RLQ: Active LLQ: Active GENITOURINARY Elimination: Continent Color/Characteristic: Yellow INTEGUMENTARY/SKIN/WOUND - (INCLUDING MASON) SEE NOTE: VAAES SKIN INPECTION/ASSESSMENT ACTIVITIES OF DAILY LIVING Hygiene ADLs: Oral Care: Non-ventilator patient: Patient teeth brushed: Independently The was educated that poor oral hygiene increases the risk of hospital acquired pneumonia and dental problems like gingivitis and tooth decay. [place] was educated using their preferred method and verbalized understanding. IV LINES Peripheral IV: Line #1: Assessment: Location: Right, Wrist Gauge: 20 Dressing Condition: Clean, dry, intact Transparent dressing Site Condition: No redness, swelling, pain Line Status: Flushed PSYCHOSOCIAL Type of Emotional Support Provided: 1:1 discussion, Treatment discussion /es/ CARLOS HERNÁNDEZ REGISTERED NURSE Signed: 05/02/2024 23:01 CARLOS HERNÁNDEZ [facility] May 02, 2024 09:25 PM NURSING NOTE: LOCAL TITLE: [facility] SKIN INSPECTION/ASSESSMENT STANDARD TITLE: NURSING NOTE DATE OF NOTE: MAY 02, 2024@21:25 ENTRY DATE: MAY 02, 2024@23:05:21 AUTHOR: CARLOS HERNÁNDEZ EXP COSIGNER: URGENCY: STATUS: COMPLETED Assessment Type: INITIAL SKIN INSPECTION/ASSESSMENT SKIN INSPECTION: Skin Color: Usual for ethnicity Skin Temperature: Warm Skin Moisture: Normal Skin Turgor: Elastic (normal/immediate) Mason Skin Assessment: The patient's Mason Scale Score is 21. The patient is considered not at risk for development of pressure ulcers/injuries. Sensory perception -- ability to respond meaningfully to pressure-related discomfort No impairment. Moisture -- degree to which skin is exposed to moisture Rarely moist. Activity -- ability to change and control body position Walks occasionally. Mobility -- ability to change and control body position No limitation. Nutrition -- usual food intake patterns Adequate. Friction and shear No apparent problem. INTERVENTIONS: The pressure injury interventions were not needed - patient/resident is not at risk. SKIN ALTERATIONS: Wound Documentation from the past year: Skin Assessment 09/11/2023 Skin Integrity - Wound right groin incision 09/10/2023 Skin Integrity - Wound SKIN INTEGRITY: Intact SKIN/WOUND DRESSING: Location(s): abd, four areas, three across abd with steri strips gauze and transparent dressing. other area to upper abd just has steri strips. Clean Dry Intact /es/ CARLOS HERNÁNDEZ REGISTERED NURSE Signed: 05/02/2024 23:08 CARLOS HERNÁNDEZ [facility] May 02, 2024 08:34 PM NURSING INPATIENT NOTE: LOCAL TITLE: [facility] ACUTE INPATIENT NSG SHIFT ASSESSMENT STANDARD TITLE: NURSING INPATIENT NOTE DATE OF NOTE: MAY 02, 2024@20:34 ENTRY DATE: MAY 02, 2024@20:36:07 AUTHOR: PETE HENSLEY EXP COSIGNER: URGENCY: STATUS: COMPLETED [facility] ACUTE INPATIENT NSG SHIFT ASSESSMENT Has ADDENDA Version 2.2 Charting in accordance with [place] APPROVED [place] STANDARD (DEAES) ACUTE INPATIENT/REHABILITATION NURSING ADMISSION SCREENING, ASSESSMENT, AND STANDARDS OF CARE ASSESSMENT HANDOFF Bedside report and handoff completed Safety check completed PAIN ASSESSMENT Patient's acceptable pain goal: 6 Hard to ignore, avoid usual activities Are you currently experiencing pain? Yes - DVPRS scale used to assess Location: abdo [employer] Pain Rating Scale (DVPRS): 6 Hard to ignore, avoid usual activities Pain Score: 7 GILBERT FALL SCALE & TIPS PROGRAM Gilbert Fall Scale: The Gilbert Fall scale was performed and score was 35. This is indicative of moderate risk for falls. History of falling: immediate or within 3 months? No Secondary diagnosis: Yes Ambulatory aid: None/bedrest/nurse assist Intravenous therapy/Heparin lock: Yes Gait/Transferring: Normal/bed rest/immobile Mental Status: Oriented to own ability/knows own limitations Fall Tailoring Interventions for Patient Safety (TIPS) Fall TIPS initiated with patient: Yes Interventions: Communicate recent fall or risk of harm Fall TIPS reviewed with patient: Yes Interventions: Communicate recent fall or risk of harm ENVIRONMENTAL SAFETY MANAGEMENT Implemented safety standards of care: -Eidson to unit & environment -Adequate room lighting -Bed in low and locked position -Call light within reach -Personal items within reach -Traffic path in room free of clutter -Non-slip footwear -Upper/half length side rails up for bed mobility -Sensory aids within reach -Encourage patient to utilize sensory support Additional safety measures: Increased frequency of rounding NEUROLOGICAL Neurological Orientation: Oriented x4 Level of Consciousness (AVPU): Alert = Appears aware of and responsive to the environment on their own. Follows commands, opens eyes spontaneously, and tracks objects. Affect/behavior: Cooperative Calm NEUROMUSCULAR/NEUROVASCULAR EXTREMITIES ASSESSMENT Strength: Boat Hand Bilateral: Strong Upper Extremity Bilateral: Full strength Lower Extremity Bilateral: Full strength Sensation: Upper Extremity Sensation Bilateral: Intact Lower Extremity Sensation Bilateral: Intact Temperature: Upper Extremity Temperature Bilateral: Warm Lower Extremity Temperature Bilateral: Warm CARDIOVASCULAR Heart Sounds: Normal (S1S2) Capillary Refill: All 4 extremities, less than or equal to 3 seconds. Peripheral Pulses: All 4 extremities, 3+ normal. Edema: None RESPIRATORY Respirations: Unlabored Pattern: Regular Breath Sounds Auscultated: Anterior and posterior Left Upper Lobe: Clear Right Upper Lobe: Clear Right Middle Lobe: Clear Left Lower Lobe: Clear Right Lower Lobe: Clear GASTROINTESTINAL Passing flatus Elimination: Continent Abdominal Description: Rounded Palpation: Soft, Non-tender Bowel Sounds: RUQ: Active LUQ: Active RLQ: Active LLQ: Active GENITOURINARY Elimination: Continent INTEGUMENTARY/SKIN/WOUND - (INCLUDING MASON) SEE NOTE: VAAES SKIN INPECTION/ASSESSMENT MOBILITY Mobility Status: Independent: Able to stand and step without staff assistance Comment: Some inability to ambulate due to pain Gait: Other: Not ambulate due to pain IV LINES Peripheral IV: Present on admission: Line #1: Location: Right, Wrist Gauge: 20 PSYCHOSOCIAL Type of Emotional Support Provided: 1:1 discussion, Anticipated outcomes, Ventilation of feelings encouraged /radha/ PETE RAMEY RN REGISTERED NURSE Signed: 05/02/2024 20:48 05/02/2024 ADDENDUM STATUS: COMPLETED Unable to complete skin assessment and belongings note. Oncoming RN aware. /bhupendra RAMEY RN REGISTERED NURSE Signed: 05/02/2024 20:49 PETE HENSLEY [facility] May 02, 2024 07:01 PM ADMINISTRATIVE NOTE: LOCAL TITLE: ADMINISTRATIVE STL STANDARD TITLE: ADMINISTRATIVE NOTE DATE OF NOTE: MAY 02, 2024@19:01 ENTRY DATE: MAY 02, 2024@19:01:17 AUTHOR: CAROLYN PLASCENCIA EXP COSIGNER: URGENCY: STATUS: COMPLETED NOTIFIED SURGERY II GENSIS OF ADMIT TO 7S. /radha/ CAROLYN PLASCENCIA ADVANCED INSURANCE CLAIM REPRESENTATIVE Signed: 05/02/2024 19:01 Receipt Acknowledged By: 05/02/2024 19:57 /radha/ MICHAEL MOREL PRIVATE PILOT INSURANCE CLAIM REPRESENTATIVE 05/10/2024 19:07 /radha/ EMBER AGUILAR SUPERVISORY INSURANCE CLAIM REPRESENTATIVE CAROLYN PLASCENCIA [facility] May 02, 2024 06:35 PM NURSING INPATIENT NOTE: LOCAL TITLE: [facility] NURSING FREQUENT DOCUMENTATION STANDARD TITLE: NURSING INPATIENT NOTE DATE OF NOTE: MAY 02, 2024@18:35 ENTRY DATE: MAY 02, 2024@19:24:02 AUTHOR: TREVOR RILEY EXP COSIGNER: URGENCY: STATUS: COMPLETED Version 2.4 Charting in accordance with [facility] [place] STANDARD ([facility]) ACUTE INPATIENT/REHABILITATION NURSING ADMISSION SCREENING, ASSESSMENT, AND STANDARDS OF CARE PROVIDER NOTIFICATION Provider Name: Pete Hensley R.N. Notification Reason: Other: nurse notified of patient blood pressure /radha/ TREVOR RILEY DERMATOLOGY NURSE PRACTITIONER TRACTOR DRIVER TEAMSTER Signed: 05/02/2024 19:24 TREVOR RILEY [facility] May 02, 2024 06:24 PM NURSING ADMISSION EVALUATION NOTE: LOCAL TITLE: [facility] ACUTE INPATIENT NSG ADMISSION SCREEN STANDARD TITLE: NURSING ADMISSION EVALUATION NOTE DATE OF NOTE: MAY 02, 2024@18:24 ENTRY DATE: MAY 02, 2024@18:24:14 AUTHOR: PETE HENSLEY EXP COSIGNER: URGENCY: STATUS: COMPLETED ALLERGY/ADVERSE DRUG REACTION (ADR) REVIEW (MRT5) FACILITY ALLERGY/ADR -------- No Remote Allergy/ADR Data available for this patient [facility] [place] [facility] [place] [facility] Allergy/Adverse Drug Reaction Review to be conducted by: Nurse: Results of Allergy/ADR Review: Allergy/Adverse Drug Reaction list confirmed. MEDICATION REVIEW (MRR1) Did patient bring medication(s) from home? No Medication Review conducted by Nurse Results of Medication Review: Active Medication List: INCLUDED IN THIS LIST: Alphabetical list of active outpatient prescriptions [facility] from this [facility] (local) and dispensed from another [facility] or [facility] facility (remote) as well as inpatient orders (local pending and active), local clinic medications, locally documented non-VA medications, and local prescriptions that have or been discontinued in the past 90 days. Non-VA Meds Last Documented On: Jun 03, 2015 NOTE The display of VA prescriptions dispensed from another [facility] or [facility] facility (remote) is limited to active outpatient prescription entries matched to National Drug File at the originating site and may not include some items such as investigational drugs, compounds, etc. NOT INCLUDED IN THIS LIST: Medications self-entered by the patient into personal health records (i.e. [employer]) are NOT included in this list. Non-VA medications documented outside this DE, remote inpatient orders (regardless of status) and remote clinic medications are NOT included in this list. The patient and provider must always discuss medications the patient is taking, regardless of where the medication was dispensed or obtained. -------- INPT ACETAMINOPHEN 325MG TAB (Status=Active) 650MG BY MOUTH EVERY SIX HOURS first dose at 10/4 at 2200 Indication: FOR PAIN INPT ALBUTEROL 90MCG (CFC-F) 200D ORAL INHL (Status=Pending) 1 PUFF INHALATION ORAL FOUR TIMES A DAY NEEDED Indication: FOR COPD INPT ALBUTEROL SO4 0.083% INHL 3ML (Status=Pending) 2.5MG/3ML NEB EVERY SIX HOURS NEEDED Indication: FOR ASTHMA OUTPT ALBUTEROL 90MCG (CFC-F) 200D ORAL INHL (Status = Active) INHALE 1 PUFF ORAL INHALATION FOUR TIMES A DAY NEEDED SHAKE WELL. RINSE MOUTHPIECE FREQUENTLY TO PREVENT CLOGGING. Rx# [id number] Last Released: 02/25/24 Qty/Days Supply: 08/28 Rx Expiration Date: 11/14/24 Refills Remainin Indication: FOR COPD OUTPT ALBUTEROL SO4 0.083% INHL 3ML (Status = Active) INHALE 1 VIAL (2.5MG/3ML) BY NEBULIZATION EVERY 6 HOURS DIRECTED Rx# [id number] Last Released: 10/05/23 Qty/Days Supply: 120/30 Rx Expiration Date: 10/02/24 Refills Remainin Indication: FOR ASTHMA OUTPT AMLODIPINE BESYLATE 10MG TAB (Status = Active) TAKE ONE TABLET BY MOUTH ONCE A DAY FOR HEART/BLOOD PRESSURE Rx# [id number] Last Released: 03/10/24 Qty/Days Supply: 90/90 Rx Expiration Date: 06/18/24 Refills Remainin INPT AMLODIPINE BESYLATE 10MG TAB (Status=Active) 10MG BY MOUTH QDAILY Indication: FOR HIGH BLOOD PRESSURE INPT ASPIRIN 81MG EC TAB (Status=NON-VERIFIED) 162MG BY MOUTH QDAILY Indication: FOR CARDIOVASCULAR DISEASE OUTPT ASPIRIN 81MG EC TAB (Status = Active) TAKE TWO TABLETS BY MOUTH ONCE A DAY FOR HEART OR CIRCULATION. TAKE WITH FOOD. Rx# [id number] Last Released: 03/14/24 Qty/Days Supply: 120/60 Rx Expiration Date: 08/31/24 Refills Remainin OUTPT BREZTRI 160/9/4.8MCG/ACT 120D ORAL INHL (Status = Discontinued) INHALE 2 PUFFS INHALATION TWICE A DAY DIRECTED FOR COPD (CLEAN INHALER FOLLOWED BY 2 PRIMING PUFFS ONCE WEEKLY) Rx# [id number] Last Released: 02/25/24 Qty/Days Supply: Rx Expiration Date: 04/06/24 Refills Remainin Indication: FOR COPD OUTPT CARBOXYMETHYLCELLULOSE NA 0.5% OPH SOLN (Status = Active) INSTILL 1 DROP IN BOTH EYES FOUR TIMES A DAY NEEDED FOR DRY EYE(S) Rx# [id number] Last Released: 09/08/23 Qty/Days Supply: 45/90 Rx Expiration Date: 09/07/24 Refills Remainin Indication: FOR DRY EYE(S) CLIN CEFAZOLIN 2GM/BAG INJ,SOLN (Status=) CEFAZOLIN 2GM/BAG INJ,SOLN 100 ml IVPB INFUSE OVER 30 Minutes EVERY FOUR HOURS for a total of 2 doses O.R. Apr Standard doses needed: 2 Indication: For Surgical PPX OUTPT CHLORHEXIDINE GLUCONATE 4% TOP LIQUID (Status = Active) APPLY SMALL AMOUNT TO AFFECTED AREA(S) TWICE (WASH BODY THE EVENING BEFORE AND THE MORNING OF SURGERY; USE 1 BOTTLE FOR EACH EPISODE OF BATHING TO REDUCE SKIN BACTERIA; AVOID CONTACT WITH FACE AND PRIVATES. DO NOT SWALLOW) Rx# [id number] Last Released: 04/22/24 Qty/Days Supply: 240/4 Rx Expiration Date: 05/22/24 Refills Remainin Indication: FOR SKIN DISINFECTION OUTPT CHOLECALCIF 50MCG (D3-2,000UNIT) TAB (Status = Active) TAKE TWO TABLETS BY MOUTH ONCE A DAY FOR VITAMIN D DEFICIENCY. Rx# [id number] Last Released: 01/26/24 Qty/Days Supply: 200/90 Rx Expiration Date: 08/31/24 Refills Remainin OUTPT CICLOPIROX 8% TOP SOLN (Status = Active) APPLY LIGHTLY TO AFFECTED AREA(S) ONCE A DAY (THIN COAT TO THICK NAILS - FILE DOWN AFTER 1 WEEK) (EXTERNAL USE ONLY) Rx# [id number] Last Released: 09/04/23 Qty/Days Supply: Rx Expiration Date: 08/31/24 Refills Remainin Indication: FOR ONYCHOMYCOSIS OUTPT CYCLOBENZAPRINE HCL 10MG TAB (Status = Active) TAKE ONE TABLET BY MOUTH THREE TIMES A DAY FOR MUSCLE SPASM MAY CAUSE DROWSINESS. DO NOT DRINK ALCOHOL WHILE TAKING THIS MEDICATION. Rx# [id number] Last Released: 01/26/24 Qty/Days Supply: 90 Rx Expiration Date: 01/25/25 Refills Remainin Indication: FOR MUSCLE SPASM INPT CYCLOBENZAPRINE HCL 10MG TAB (Status=Active) 10MG BY MOUTH THREE TIMES A DAY Indication: FOR MUSCLE SPASM INPT DOCUSATE NA 100MG CAP (Status=Pending) 200MG BY MOUTH TWICE A DAY Indication: FOR SOFTENING STOOL CLIN FENTANYL CITRATE 50MCG/ML INJ 2ML (Status=Active) 25MCG-50MCG IVP Q15MIN NEEDED NEEDED FOR BREAKTHROUGH PAIN; UP TO MAX TOTAL DOSE OF 200MCG (PAIN SCORE 0-5, GIVE 25MCG; 6-10, GIVE 50MCG) - (FOR PACU USE ONLY) Indication: FOR ACUTE PAIN CLIN HYDRALAZINE HCL 20MG/ML INJ (Status=Active) 5MG/0.25ML IVP Q15MIN NEEDED FOR 24 HOURS prn blood pressure (systolic, diastolic or both) > 140/90 AND > 10% above baseline; to a maximum total dosage of 20 mg. (FOR PACU USE ONLY) Indication: FOR HIGH BLOOD PRESSURE OUTPT HYDROCODONE 10/ACETAMINOPHEN 325MG TAB (Status = ) TAKE 1 TABLET BY MOUTH EVERY 6 HOURS NEEDED FOR PAIN CAUTION: DO NOT EXCEED 4000MG PER DAY ACETAMINOPHEN (APAP) FROM ALL MEDS. DO NOT TAKE WITH OXYCODONE Rx# [id number] Last Released: 01/25/24 Qty/Days Supply: 120/30 Rx Expiration Date: 02/24/24 Refills Remainin Indication: FOR PAIN OUTPT HYDROCODONE 10/ACETAMINOPHEN 325MG TAB (Status = Discontinued) TAKE 1 TABLET BY MOUTH EVERY 6 HOURS NEEDED FOR PAIN CAUTION: DO NOT EXCEED 4000MG PER DAY ACETAMINOPHEN (APAP) FROM ALL MEDS. DO NOT TAKE WITH OXYCODONE Rx# [id number] Last Released: 02/26/24 Qty/Days Supply: 120/30 Rx Expiration Date: 03/27/24 Refills Remainin Indication: FOR PAIN OUTPT HYDROCODONE 10/ACETAMINOPHEN 325MG TAB (Status = Discontinued) TAKE 1 TABLET BY MOUTH EVERY 6 HOURS NEEDED FOR PAIN CAUTION: DO NOT EXCEED 4000MG PER DAY ACETAMINOPHEN (APAP) FROM ALL MEDS. DO NOT TAKE WITH OXYCODONE Rx# [id number] Last Released: 03/27/24 Qty/Days Supply: 120/30 Rx Expiration Date: 04/26/24 Refills Remainin Indication: FOR PAIN OUTPT HYDROCODONE 10/ACETAMINOPHEN 325MG TAB (Status = Active) TAKE 1 TABLET BY MOUTH EVERY 6 HOURS NEEDED FOR PAIN CAUTION: DO NOT EXCEED 4000MG PER DAY ACETAMINOPHEN (APAP) FROM ALL MEDS. DO NOT TAKE WITH OXYCODONE Rx# [id number] Last Released: 04/24/24 Qty/Days Supply: 120/30 Rx Expiration Date: 05/21/24 Refills Remainin Indication: FOR PAIN CLIN HYDROMORPHONE 0.2MG/ML SYR 1ML (Status=Active) 0.2MG-0.8MG IVP Q15MIN NEEDED NEEDED FIRST LINE FOR PAIN; UP TO MAX TOTAL DOSE OF 4MG (PAIN SCORE 1-4: GIVE 0.2MG; 5-6: GIVE 0.4MG; 7-8:GIVE 0.6MG; 9-10:GIVE 0.8MG) - (FOR PACU USE ONLY) Indication: FOR SEVERE PAIN INPT IBUPROFEN 600MG TAB (Status=Pending) 600MG BY MOUTH EVERY SIX HOURS first dose on 05/02 at 1930 Indication: FOR PAIN OUTPT METFORMIN HCL 1000MG TAB (Status = Active) TAKE ONE TABLET BY MOUTH TWICE A DAY WITH MEALS FOR BLOOD SUGAR CONTROL. AVOID ALCOHOL. DISCONTINUE BEFORE GETTING XRAY DYE. Rx# [id number] Last Released: 03/14/24 Qty/Days Supply: Rx Expiration Date: 08/31/24 Refills Remainin OUTPT NALOXONE HCL 8MG/SPRAY SOLN NASAL SPRAY (Status = Active) USE 1 SPRAY (8MG) INTO ONE NOSTRIL ONLY ONE-TIME FOR OPIOID OVERDOSE DO NOT PRIME NASAL SPRAY. SPRAY ONE DOSE IN ONE NOSTRIL, GIVE ADDITIONAL DOSE IF PATIENT DOES NOT START BREATHING WITHIN 2-3 MINUTES OR STOPS BREATHING AGAIN. CALL 911. IF USED, NOTIFY PROVIDER. Rx# [id number] Last Released: 03/31/24 Qty/Days Supply: 08/30 Rx Expiration Date: 03/28/25 Refills Remainin Indication: FOR OPIOID OVERDOSE CLIN ONDANSETRON HCL 2MG/ML INJ,SOLN (Status=Active) 4MG/2ML IVP EVERY SIX HOURS NEEDED FOR 24 HOURS NEEDED FOR NAUSEA (FOR PACU USE ONLY) Indication: FOR NAUSEA/VOMITING INPT OXYCODONE (IMMEDIATE RELEASE) UD TAB (Status=Pending) 2.5 MG BY MOUTH QDAILY NEEDED FOR 3 DAYS For breakthrough pain Indication: FOR ACUTE PAIN OUTPT PANTOPRAZOLE NA 40MG EC TAB (Status = Discontinued) TAKE ONE TABLET BY MOUTH TWO TIMES A DAY BEFORE MEALS TO LOWER STOMACH ACID - TAKE 30 MINUTES BEFORE MEAL(S) Rx# [id number] Last Released: 09/03/23 Qty/Days Supply: Rx Expiration Date: 03/20/24 Refills Remainin OUTPT PANTOPRAZOLE NA 40MG EC TAB (Status = Active) TAKE ONE TABLET BY MOUTH TWO TIMES A DAY BEFORE MEALS TO LOWER STOMACH ACID - TAKE 30 MINUTES BEFORE MEAL(S) Rx# [id number] Last Released: 04/04/24 Qty/Days Supply: Rx Expiration Date: 04/02/25 Refills Remainin INPT PANTOPRAZOLE NA 40MG EC TAB (Status=Pending) 40MG BY MOUTH TWICE A DAY BEFORE MEAL(S) Indication: FOR GASTROESOPHAGEAL REFLUX DISEASE OUTPT POLYETHYLENE GLYCOL 3350 ORAL PWDR (Status = Discontinued) MIX AND DRINK 1 CAPFUL BY MOUTH ONCE A DAY FOR CONSTIPATION (MEASURE WITH CAP AND MIX IN 8 OZ OF WATER) Rx# [id number] Last Released: 04/18/24 Qty/Days Supply: 510/30 Rx Expiration Date: 01/03/25 Refills Remainin Indication: FOR CONSTIPATION OUTPT POLYETHYLENE GLYCOL 3350 ORAL PWDR (Status = Active) MIX AND DRINK 1 CAPFUL BY MOUTH ONCE A DAY FOR CONSTIPATION (MEASURE WITH CAP AND MIX IN 8 OZ OF WATER) Rx# [id number] Last Released: 04/25/24 Qty/Days Supply: 510/30 Rx Expiration Date: 04/22/25 Refills Remainin Indication: FOR CONSTIPATION INPT POLYETHYLENE GLYCOL 3350 17GM/PKT PWDR (Status=Pending) 1 PACKET BY MOUTH QDAILY Indication: FOR CONSTIPATION OUTPT PREGABALIN 200MG ORAL CAP (Status = Discontinued) TAKE ONE CAPSULE BY MOUTH THREE TIMES A DAY FOR NERVE PAIN Rx# [id number] Last Released: 01/28/24 Qty/Days Supply: 9030 Rx Expiration Date: 03/02/24 Refills Remainin Indication: FOR NERVE PAIN OUTPT PREGABALIN 200MG ORAL CAP (Status = Active) TAKE ONE CAPSULE BY MOUTH THREE TIMES A DAY FOR NERVE PAIN Rx# [id number] Last Released: 04/03/24 Qty/Days Supply: 9030 Rx Expiration Date: 10/02/24 Refills Remainin Indication: FOR NERVE PAIN INPT PREGABALIN 200MG ORAL CAP UD (Status=Pending) 200MG BY MOUTH THREE TIMES A DAY Indication: FOR NERVE PAIN OUTPT PSYLLIUM ORAL PWD (Status = Active) MIX AND DRINK 1 TEASPOONFUL BY MOUTH ONCE A DAY FOR FIBER SUPPLEMENTATION MIX IN GLASS OF WATER/JUICE. FLAVOR SUBSTITUTIONS MAY/WILL OCCUR AND SPECIFIC VARIETIES WILL NOT BE PROVIDED. Rx# [id number] Last Released: 01/09/24 Qty/Days Supply: 390/60 Rx Expiration Date: 01/03/25 Refills Remainin Indication: FOR FIBER SUPPLEMENTATION INPT SENNOSIDES 8.6MG TAB (Status=Pending) 17.2MG BY MOUTH TWICE A DAY Indication: FOR CONSTIPATION OUTPT SODIUM FLUORIDE 1.1% TOOTHPASTE (Status = Active) USE DIRECTED BY MOUTH ONCE A DAY TOOTHPASTE (DO NOT SWALLOW) Rx# [id number] Last Released: 01/04/24 Qty/Days Supply: 5130 Rx Expiration Date: 12/17/24 Refills Remainin Indication: FOR DENTAL HEALTH INPT TAMSULOSIN HCL 0.4MG CAP (Status=Pending) 0.4MG BY MOUTH EVERY EVENING Indication: FOR BENIGN PROSTATIC HYPERPLASIA OUTPT TAMSULOSIN HCL 0.4MG CAP (Status = Active) TAKE ONE CAPSULE BY MOUTH EVERY EVENING APPROXIMATELY 30 MINUTES AFTER THE SAME MEAL EACH DAY Rx# [id number] Last Released: 04/24/24 Qty/Days Supply: 90 Rx Expiration Date: 01/03/25 Refills Remainin Indication: FOR BENIGN PROSTATIC HYPERPLASIA OUTPT TOPIRAMATE 50MG TAB (Status = Active) TAKE ONE TABLET BY MOUTH TWICE A DAY FOR SEIZURES OR MIGRAINE PROPHYLAXIS Rx# [id number] Last Released: 09/04/23 Qty/Days Supply: 180 Rx Expiration Date: 08/31/24 Refills Remainin Indication: FOR MIGRAINE HEADACHE INPT TOPIRAMATE 50MG TAB (Status=Pending) 50MG BY MOUTH TWICE A DAY Indication: FOR MIGRAINE HEADACHE OUTPT VALSARTAN 320MG TAB (Status = Active) TAKE ONE TABLET BY MOUTH ONCE A DAY TO LOWER BLOOD PRESSURE Rx# [id number] Last Released: 04/26/24 Qty/Days Supply: 90 Rx Expiration Date: 10/22/24 Refills Remainin INPT VALSARTAN 320MG TAB (Status=Pending) 320MG BY MOUTH QDAILY Indication: FOR HIGH BLOOD PRESSURE -------- SUPPLIES MEDICATION REVIEW 2. Patient/Family/Caregiver report UNSURE IF TAKING these medications: vet unsure of names of meds he takes on regular basis GENERAL INFORMATION Admission information given by: Patient Is there a legal guardian/conservator? No Preferred language for discussing healthcare: [place] Preferred mode of communication: Verbal Written Items at Bedside: None INFECTIOUS DISEASE RISK SCREEN Travel Screen: Have you traveled within the [place] within the last 21 days? No Have you traveled outside the [facility] within the last 21 days? No Within the last 14 days, have you had: No known exposure Other Exposure to Infectious Disease: No known exposure Patient reported the following symptoms: No Symptoms Present History of Multiple Drug Resistant Organism (MDRO): No NUTRITION SCREENING Malnutrition Screening Weight (Previous 6 months): Measurement DT WEIGHT LB(KG)[BMI] 05/02/2024 10:09 215(97.52)[28*] 04/22/2024 09:54 219.2(99.43)[28*] 04/10/2024 10:57 216.4(98.16)[28*] 03/27/2024 11:12 220(99.79)[28*] 02/22/2024 10:30 218.6(99.16)[28*] 01/03/2024 09:54 220.7(100.11)[28*] 11/19/2023 11:49 219.8(99.70)[28*] 11/14/2023 09:07 216.1(98.02)[28*] Lost weight recently without trying: No (0 points) Have you been eating poorly because of decreased appetite? No (0 points) Total Score: 0 Other Nutrition Screening Questions: The patient does not report any concerns with their teeth that would make it difficult to eat. The patient does not report overeating to the point of feeling sick or making themselves vomit. The patient denies gaining 10 lbs.(4.5 kgs) or more in the past 3 months without trying. The patient denies having any food allergies, intolerance, special dietary needs, or ethnic, cultural or episcopal preferences that would affect their dietary needs. Food Insecurity Screening Within the past 12 months, you worried whether your food would run out before you got money to buy more. Never true Within the past 12 months, the food you bought just did not last you and you did not have the money to get more. Never true Food Insecurity Disposition: RISK SCREENINGS Alcohol Screen: Screen to be completed by: Nurse: SCREEN FOR ALCOHOL (AUDIT-C) An alcohol screening test (AUDIT-C) was negative (score=0). 1. How often did you have a drink containing alcohol in the past year? Consider a drink to be a 12 ounce can or bottle of regular beer, 8 ounces of malt liquor, a 5 ounce glass of table wine, or a 1.5 ounce shot of liquor (like scotch, gin, or vodka). Never 2. How many drinks containing alcohol did you have on a typical day when you were drinking in the past year? Response not required due to responses to other questions. 3. How often did you have six or more drinks on one occasion in the past year? Response not required due to responses to other questions. *Does the patient consume alcohol? No Tobacco Use: Former - tobacco user Do you currently or have you ever used alternative nicotine products? No Substance Use Assessment: *Do you use any recreational drugs or narcotics (prescription or non-prescription)? No RISK OF WANDERING The patient does not have a history of wandering. The patient does not have a history of elopement. The patient is not expressing a desire to leave. SUICIDE SCREEN [place] Suicide Severity Rating Scale (C-SSRS) 1. Over the past month, have you wished you were or wished you could go to sleep and not wake up? No 2. Over the past month, have you had any actual thoughts of killing yourself? No 3. Over the past month, have you been thinking about how you might do this? Response not required due to responses to other questions. 4. Over the past month, have you had these thoughts and had some intention of acting on them? Response not required due to responses to other questions. 5. Over the past month, have you started to work out or worked out the details of how to kill yourself? Response not required due to responses to other questions. 6. If yes, at any time in the past month did you intend to carry out this plan? Response not required due to responses to other questions. 7. In your lifetime, have you ever done anything, started to do anything, or prepared to do anything to end your life (for example, collected pills, obtained a gun, gave away valuables, went to the roof but didn't jump)? No 8. If YES, was this within the past 3 months? Response not required due to responses to other questions. C-SSRS Screen is Negative EXPOSURE TO VIOLENCE AND ABUSE PRE-SCREEN Are you worried for your safety, that you will be hurt or harmed? No Has anyone tried to force you to sign papers or use your money against your will? No POST TRAUMATIC STRESS DISORDER CARE CONSIDERATIONS To minimize a startle response, what is your preference on how best to awaken you? No preference REPRODUCTIVE & SEXUAL HEALTH Do you have any sexual or reproductive concerns you would like your healthcare team to be aware of? No ADVANCE DIRECTIVE Notification of Rights Related to Advance Directives: Written notification not provided. *The patient wishes to receive information about or assistance with Advance Care Planning and/or Advance Directive: No SPIRITUALITY Are there episcopal practices or spiritual concerns you want the seed potato arranger, your provider, and other health care team members to know? No ANTICIPATED DISCHARGE NEEDS Where do you live? Housing owned/rented by [place]: Method of transportation upon discharge: Private Vehicle: Are there any anticipated barriers to discharge? No EDUCATIONAL NEEDS/LEARNING STYLE Barriers to learning: None evident Patient learning style preferences: None VISITOR INFORMATION Will you have a primary support person while in the hospital? No Patient's Visitor Restriction preferences: No Privacy Review: No passcode provided due to opt out GILBERT FALL SCALE & TIPS PROGRAM Gilbert Fall Scale: The Gilbert Fall scale was performed and score was 35. This is indicative of moderate risk for falls. History of falling: immediate or within 3 months? No Secondary diagnosis: Yes Ambulatory aid: None/bedrest/nurse assist Intravenous therapy/Heparin lock: Yes Gait/Transferring: Normal/bed rest/immobile Mental Status: Oriented to own ability/knows own limitations Fall Tailoring Interventions for Patient Safety (TIPS) Fall TIPS initiated with patient: Yes Interventions: Communicate recent fall or risk of harm PAIN ASSESSMENT Patient's acceptable pain goal: 7 Focus of attention, prevents doing daily activities Are you currently experiencing pain? Yes - DVPRS scale used to assess Location: [facility] [employer] Pain Rating Scale (DVPRS): Pain Score: 7 /radha/ PETE RAMEY RN REGISTERED NURSE Signed: 05/02/2024 18:40 PETE HENSLEY [facility] May 02, 2024 06:20 PM ADMINISTRATIVE NOTE: LOCAL TITLE: ADMINISTRATIVE ST STANDARD TITLE: ADMINISTRATIVE NOTE DATE OF NOTE: MAY 02, 2024@18:20 ENTRY DATE: MAY 02, 2024@18:21:12 AUTHOR: CAROLYN PLASCENCIA COSIGNER: URGENCY: STATUS: COMPLETED PER ORDER PATIENT WAS PLACE ON OBSERVATION Apr@18:15:06. /radha/ CAROLYN PLASCENCIA ADVANCED INSURANCE CLAIM REPRESENTATIVE Signed: 05/02/2024 18:21 Receipt Acknowledged By: 05/05/2024 21:26 /es/ MICHAEL MOREL PRIVATE PILOT INSURANCE CLAIM REPRESENTATIVE * AWAITING SIGNATURE * MIROSLAVA MARRERO * AWAITING SIGNATURE * MARCELLO ROMEO 05/11/2024 01:26 /es/ SKYLAR WHEAT LEAD ADVANCED INSURANCE CLAIM REPRESENTATIVE CAROLYN PLASCENCIA [facility]
--- OUTSIDE RECORDS SUMMARY | 2024-11-02 11:54 | XMS_ITS ---
Author Name [facility] Organization [facility] [place] Address [address] [place] [address] Care Team Providers Care Production Material Handler Name Role Phone NATALIO BRIDGES Primary Care [...] PART B Oct 28, 2001 PART B [id number] [phone] Petra DUQEU PATIENT MEDICARE (WNR) MEDICARE (M) PART A Oct 28, 2001 PART A [id number] Petra DUQUE PATIENT MEDICARE (WNR) MEDICARE (M) PART A Oct 28, 2001 PART A [id number] Petra DUQUE PATIENT Selected Encounter This section includes the information on record at NH for the Encounter. Date/Time Encounter Type Encounter Description Reason Provider Source May 02, 2024 06:06 PM Outpatient Encounter ADMIN PAT ACTIVTIES (KIRSTIENONCT) TEMO ZUNIGA Ernie Encounter Template Text not used by NH Plan of Treatment: Future Appointments (+ 6 months) and Future Tests (+/- 45 days) The Plan of Treatment section includes future care activities for the patient from all [place] treatment[facility] health[facility]. This section includes future appointments and future [...] 2024 03:30 PM AMBULATORY - MEDICINE [facility] May 19, 2024 11:00 AM AMBULATORY - MEDICINE [facility] May 22, 2024 09:30 AM AMBULATORY - SURGERY [facility] May 27, 2024 09:30 AM AMBULATORY - NONE [facility] Jul 11, 2024 02:00 PM AMBULATORY - NONE [facility] Aug 07, 2024 07:30 AM AMBULATORY - NONE [facility] Aug 15, 2024 10:30 AM AMBULATORY - MEDICINE [facility] Sep 04, 2024 01:30 PM AMBULATORY - MEDICINE [facility] Sep 05, 2024 10:00 AM AMBULATORY - NONE [facility] Sep 18, 2024 12:20 PM AMBULATORY - MEDICINE [facility] Sep 22, 2024 11:30 AM AMBULATORY - NONE [facility] Oct 27, 2024 11:15 AM AMBULATORY - MEDICINE [facility] Lab Results: +/- 30 days of the encounter This section includes the Chemistry and Hematology Lab Results on record with NH for the patient. Radiology Reports and Pathology Reports are provided separately, in subsequent sections. Lab Results This section contains the Chemistry/Hematology Results that were resulted 30 days before or 30 daysafter the date of the Encounter. Date/Time Source Result Type Result - Unit Interpretation Reference Range Comment May 03, 2024 06:10 AM [facility] GLUCOSE,BLOOD-poct (STL) Specimen Type: BLOOD Comment: Test Performed by: [id number] Meter #: [id number] Ordering Provider: PALMA WASHBURN III Report Released Date/Time: May 03, 2024 06:30 AM Reporting Lab: [address] [address] Performing Lab: [address] [address] GLUCOSE,BLOOD- poct (STL) 107 mg/dL H 72-99 May 02, 2024 09:17 PM [facility] GLUCOSE,BLOOD-poct (STL) Specimen Type: BLOOD Comment: Test Performed by: [id number] Meter #: [id number] Ordering Provider: PALMA WASHBURN III Report Released Date/Time: May 02, 2024 10:39 PM Reporting Lab: [address] [address] Performing Lab: [address] [address] GLUCOSE,BLOOD- poct (STL) 122 mg/dL H 72-99 May 02, 2024 07:15 PM [facility] MRSA SURVL NARES DNA Specimen Type: [...] May 02, 2024 07:37 PM Reporting Lab: [address] [address] Performing Lab: [address] [address] MRSA SURVL NARES DNA Negative Negative May 02, 2024 06:35 PM [facility] GLUCOSE,BLOOD-poct (STL) Specimen Type: BLOOD Comment: Test Performed by: [id number] Meter #: [id number] Ordering Provider: PALMA WASHBURN III Report Released Date/Time: May 02, 2024 06:47 PM Reporting Lab: [address] [address] Performing Lab: [address] [address] GLUCOSE,BLOOD- poct (STL) 107 mg/dL H 72-99 May 02, 2024 04:15 PM [facility] GLUCOSE,BLOOD-poct (STL) Specimen Type: BLOOD Comment: Test Performed by: [id number] Meter #: [id number] Ordering Provider: FILI EDWARDS Report Released Date/Time: May 02, 2024 04:26 PM Reporting Lab: [place] [address] [facility] [address] Performing Lab: [address] [address] GLUCOSE,BLOOD- poct (STL) 99 mg/dL 72-99 May 02, 2024 09:47 AM [facility] GLUCOSE,BLOOD-poct (STL) Specimen Type: BLOOD Comment: Test Performed by: [id number] Meter #: [id number] Ordering Provider: FILI EDWARDS Report Released Date/Time: May 02, 2024 10:02 AM Reporting Lab: [place] [address] [facility] [address] Performing Lab: [address] [address] GLUCOSE,BLOOD- poct (STL) 104 mg/dL H 72-99 Apr 22, 2024 10:25 AM [facility] COMPREHENSIVE METABOLIC PANEL Specimen Type: PLASMA Comment: K result may show a positive bias due to hemolysis. Specimen slightly hemolyzed. Ordering Provider: CHON COULTER Report Released Date/Time: Apr 22, 2024 10:03 AM Reporting Lab: [facility] [address] [place] [id number] Performing Lab: [address] [address] CREATININE 0.93 mg/dL 0.7-1.3 UREA NITROGEN 10.6 [...] 85.6 >60 Apr 22, 2024 10:25 AM [facility] CBC Specimen Type: BLOOD No comment entered. Ordering Provider: CHON COULTER Report Released Date/Time: Apr 22, 2024 10:03 AM Reporting Lab: [facility] [address] [place] [address] Performing Lab: [address] [address] WBC 7.2 10*3/uL 3.6-11.2 RBC 5.52 10*6/uL [...] Source May 02, 2024 10:58 PM 7 [facility] May 02, 2024 09:30 PM 97.9 66 165/78 20 98 8 [facility] May 02, 2024 08:15 PM 4 [facility] May 02, 2024 07:15 PM 7 [facility] May 02, 2024 06:39 PM 7 [facility] Social History: Smoking [...] 04:53 PM ORYX ADMIT TOBACCO SCREEN NO [facility] Tobacco Use History This section includes a history of the smoking, or tobacco-related health factors, that were collected on or before the date of the Encounter. The data comes from the [place] facility where the Encounter took place. Date/Time Smoking Status/Tobacco Use Comment Alejandro acmahesh Oct 17, 2023 03:00 PM ORYX ADMIT TOBACCO SCREEN NO [facility] Dec 31, 2021 03:07 PM ORYX ADMIT TOBACCO SCREEN NO [facility] Apr 06, 2017 11:33 PM QUIT TOBACCO >7 YEARS AGO [facility] Mar 21, 2017 04:29 AM QUIT TOBACCO >7 YEARS AGO [facility] Jan 20, 2014 09:56 AM QUIT TOBACCO >7 YEARS AGO [facility] Jan 02, 2013 01:23 PM QUIT TOBACCO >7 YEARS AGO [facility] May 25, 2010 01:35 PM LIFETIME NON-USER OF TOBACCO [facility] Aug 17, 2009 01:04 PM QUIT TOBACCO >12 M O & <7 YRS AGO [facility] Sep 17, 2008 01:34 PM QUIT TOBACCO >12 M O & <7 YRS AGO [facility] Sep 20, 2006 10:57 AM QUIT TOBACCO >12 M O & <7 YRS AGO [facility] Jun 05, 2006 10:49 AM CURRENT NON-TOBACC O USER-HX OF USE [facility] Jun 05, 2006 10:49 AM TOBACCO TERMINATION STAGE [facility] Jul 14, 2005 11:00 AM CURRENT NON-TOBACC O USER-HX OF USE [facility] Jul 14, 2005 11:00 AM TOBACCO TERMINATION STAGE [facility] Oct 23, 2004 04:56 PM CURRENT NON-TOBACC O USER-HX OF USE [facility] Oct 23, 2004 04:56 PM TOBACCO ACTION STAGE [facility] Apr 07, 2004 10:58 AM CURRENT NON-TOBACC O USER-HX OF USE [facility] Apr 07, 2004 10:58 AM TOBACCO MAINTENANCE STAGE [facility] December 18, 2002 11:17 AM CURRENT TOBACCO USER [facility] December 18, 2002 11:17 AM TOBACCO USE [facility] Apr 07, 2002 02:25 PM CURRENT NON-TOBACC O USER-RECENTLY QUIT quit 3 mo ago [facility] Apr 07, 2002 02:25 PM TOBACCO USE quit 3 mo ago [facility] Nov 19, 2001 10:50 AM CURRENT TOBACCO USER [facility] Jul 16, 2001 08:35 AM CURRENT TOBACCO USER [facility] Jun 18, 2001 08:31 AM CURRENT TOBACCO USER [facility] Jun 18, 2001 08:31 AM TOBACCO USE Dominic [facility] Advance Directives: All [...] 18, 2018 ADVANCE DIRECTIVE DISCUSSION EMMETT CAMILO [facility] Radiology Reports: +/- 30 [...] the Encounter. The data comes from all [place] treatment facilities. Date/Time Radiology Report Provider Source Apr 22, 2024 10:54 AM CHEST X-RAY, 2 VIE WS: MAURILIO DUQUE [id number] -1950 Ex Date: APR 22, 2024@10:54 Req Phys: CHON COULTER Loc: [facility] PREOP EVAL 1 (Req'g Lo Img Loc: -MAIN RADIOLOGY SUITE Service: [facility], [facility] [address] [place] [address] (Case [id number] COMPLETE) CHEST X-RAY, 2 VIEWS (RAD Detailed) CPT:95042 Reason for Study: preop Clinical History: Report Status: Verified Date Reported: APR 22, 2024 Date Verified: APR 22, 2024 Towel Weaver E-Sig:/ES/Jelani Parkinson MD Report: FINDINGS: The examination was compared with previous examination of September. Heart size is normal. Mediastinal structures appear unremarkable. Both lungs are fully expanded without evidence of pulmonary infiltrates or additional significant findings. Impression: No evidence of acute cardiopulmonary disease. Primary Interpreting Staff: Jelani Parkinson MD, Radiologist (Towel Weaver) /JELANI PRITCHARD [facility] Pathology Reports: +/- 30 [...] the Encounter. The data comes from all [place] treatment facilities. Date/Time Pathology Report Provider Source [...] Specimen (Received May 05, 2024 09:21): Caterina SAGE (JAK) - - - - - - [...] specimen is for gross examination only. DIAGNOSIS: REGIONAL DIRECTOR OF ADMISSIONS, REMOVAL: - REGIONAL DIRECTOR OF ADMISSIONS, CONSISTENT WITH INFLATABLE PENILE PROSTHESIS RESERVOIR (IPP-RESERVOIR) (GROSS EXAMINATION ONLY) /radha/ IVAN CASTILLO M.D., PH.D. PATHOLOGIST Signed May 05, 2024@10:41 Performing Laboratory: Surgical Pathology Report [facility] By: [id number] [address] [facility] [address] [place] [address] $FTR - - - - - - [...] - - MAURILIO DUQUE STANDARD FORM 515 ID:[id number] SEX:M :1950 AGE: 73 LOC:[facility] PCP: Natalio Bridges MD /radha/ IVAN CASTILLO M.D., PH.D. PATHOLOGIST Signed: 05/05/2024 10:41 IVAN CASTILLO [facility] Encounter Notes: All associated encounter notes This section contains the clinical notes associated to the Encounter. Date/Time Encounter Note(s) Provider Source May 02, 2024 06:06 PM ANESTHESIOLOGY CINDY WSHEET: LOCAL TITLE: PACU POST-OP FLOWSHEET [facility] STANDARD TITLE: ANESTHESIOLOGY FLOWSHEET DATE OF NOTE: MAY 02, 2024@18:06 ENTRY DATE: MAY 02, 2024@18:06:03 AUTHOR: TEMO ZUNIGA COSIGNER: URGENCY: STATUS: COMPLETED Patient: MAURILIO DUQUE SSN: [id number] Anesthesia Method: General 05/02/2024 13:12 (Primary), Airway: Endotracheal Intubation, Technique: Direct Laryngoscopy, Level Of Consciousness: Sedated, Patient Position: Supine, Preoxygenated, Induction Type: Intravenous, Breathing Circuit: [place] Adult, Ventilation by Mask: Easy to Ventilate with Aid/Adjunct, Intubating Device: Curved Blade, Ease: Easy, 1 Number Of Attempts, Intubation View: Grade 1, Blade Size: 4, Size: 8 mm, Depth (cm): 24, Tube: Cuffed, Depth Measurement Location: Teeth, Tracheal Cuff Volume (cc): 10, Tracheal Cuff Inflated With: Air, EtCO2 Verified: Waveform, Breath Sounds: Equal And Bilateral, Performed By: PRIN. DAVISON, Performed By Staff: EUGENIE GARCIA, Result: Successful Rationale For Selected Technique: Elective Route: Oral Tube Checklist: Balloons Checked, Attachments Available Airway Tube: Standard Adjunct Devices: Oral Airway, Stylet Verification Of Tube Placement: Tube Inserted Via DVVC (Direct Vision Vocal Cords), Positive Cuff Suprasternal Palpation, Bilateral Chest Movement Securement: Taped Eye Protection: Both Eyes, Tape Insertion Complication: No Complications Noted Positioning: Head Neutral, Head And Neck In Alignment With Spine, Pressure Points Padded & Checked, Eyes, Ears And Nose Free Of Pressure ASA Number: 3 Procedure: robotic right inguinal hernia repair with mesh Diagnosis: inguinal hernia PACU Drugs: HYDROmorphone: 1.8 mg Ondansetron: 4 mg HydrALAZINE: 5 mg PACU Fluids: Urine Output: 750 ml Anesthesia Procedure: ---- Procedure 05/02/2024 9:55 Line Number: 1, Level Of Consciousness: Awake, Site: Wrist, Laterality: Right, Catheter Type: Angio, Catheter Size: 20 Ga Procedure 05/02/2024 13:30 Level Of Consciousness: Anesthetized, Tube Type: Orogastric, Tube Size (Fr): 18, Lubricant Used: Yes, Inserted By: Other, 2 Number Of Attempts 13:30 G.I. Tube Inserted 15:36 G.I. Tube Removed Total Time: 02:05:32 Suctioned Pressure: Intermittent G.I. Insertion: Atraumatic Continuous suction after insertion. Intermittent suction for rest of case. Date of Operation: 05/02/2024 Anesthesia Care End: 05/02/2024 16:02 Resources: Aquacel foam placed on sarah prominence to protect skin during surgery Safety Belt Robot docked Insufflation abdomen Robot undocked Robot undocked Staff: --------- PALMA WASHBURN, SURGEON PALMA WASHBURN, ATT. SURGEON FILI EDWARDS, Holding Nurse MAURILIO CURRAN ANES. SUPER. EUGENIE GARCIA, . ELAINE. EUGENIE GARCIA, . ELAINE. DOMENIC BETANCOURT, LUIS FERNANDO TURNSTILE COLLECTOR BRUNO MANUEL, Anesthesiologist TEMO ZUNIGA, Post-Op Nurse Surgery Start Time: 05/02/2024 13:49 Procedure End Time: Moderate Sedation Care End: /radha/ KAROLINE JUAREZ, RN RN Signed: 05/02/2024 18:06 TEMO UZNIGA [facility]
--- OUTSIDE RECORDS SUMMARY | 2024-11-02 11:54 | XMS_ITS ---
Author Name [facility] [place] [facility] [place] [facility] [place] Address [address] [place] [address] Care Team Providers Care Codifier Name Role Phone NATALIO BRIDGES [facility] Insurance Providers: All historical and [...] PART A Oct 28, 2001 PART A [id number] [phone] Petra DUQUE PATIENT MEDICARE (WNR) MEDICARE (M) PART A Oct 28, 2001 PART A [id number] Petra DUQUE PATIENT MEDICARE (WNR) MEDICARE (M) PART B Oct 28, 2001 PART B [id number] Petra DUQUE PATIENT Selected Encounter This section includes the information on record at CT for the Encounter. Date/Time Encounter Type Encounter Description Reason Provider Source Feb 22, 2024 02:14 PM Outpatient Encounter COMMUNITY CARE CONSULT ROQUE SULLIVAN Ernie Encounter Template Text not used by [facility] Plan of Treatment: Future Appointments (+ 6 months) and Future Tests (+/- 45 days) The Plan of Treatment section includes future care activities for the patient [facility] This section includes future appointments and future orders which are active, pending or scheduled. Future Appointments This section includes appointments that were scheduled to occur 6 months from the date of the Encounter, up to a maximum of 20 appointments. The data comes from all CT treatment facilities. Appointment Date/Time Appointment Type Appointme nt Facility Name Feb 27, 2024 08:15 AM AMBULATORY - MEDICINE [facility] Mar 26, 2024 11:00 AM AMBULATORY - NONE [facility] Mar 27, 2024 12:40 PM AMBULATORY - MEDICINE [facility] Apr 10, 2024 10:30 AM AMBULATORY - SURGERY [facility] Apr 22, 2024 10:00 AM AMBULATORY - SURGERY [facility] May 02, 2024 09:00 AM AMBULATORY - NONE [facility] May 06, 2024 03:30 PM AMBULATORY - MEDICINE [facility] May 19, 2024 11:00 AM AMBULATORY - MEDICINE [facility] May 22, 2024 09:30 AM [facility] May 27, 2024 09:30 AM AMBULATORY - NONE [facility] Jul 11, 2024 02:00 PM AMBULATORY - NONE [facility] Aug 07, 2024 07:30 AM AMBULATORY - NONE [facility] Aug 15, 2024 10:30 AM AMBULATORY - [...] of theEncounter. The data comes from all CT treatment facilities. Test Date/Time Test Type Test Details Facility Name Jan 15, 2024 12:00 AM Laboratory - Chemistry Order HGA 1C BLOOD SP [facility] Jan 15, 2024 12:00 AM Laboratory - Chemistry Order CBC BLOOD SP [facility] Vital Signs: All taken on the encounter date This section contains inpatient and outpatient Vital Signs collected on the date of the Encounter. Date/Time Temperature Pulse Blood Pressure Respiratory Rate SP02 Pain Height Weight Body Mass Index Source Feb 22, 2024 10:30 AM 98 81 103/63 18 97 0 218.6 28 [facility] Social History: Smoking Status (Most current) and Tobacco Use (All prior to encounter date) This section includes the most current, and the historical, smoking and tobacco- related health factors from the CT facility where the Encounter took place. Current Smoking Status This section includes the most current smoking, or tobacco-related health factor, from the CT facility where the Encounter took place. Date/Time Current Smoking Status Comment Tristan pastrana Oct 17, 2023 04:53 PM ORYX ADMIT TOBACCO SCREEN NO [facility] Tobacco Use History This section includes a history of the smoking, or tobacco-related health factors, that were collected on or before the date of the Encounter. The data comes from the CT facility where the Encounter took place. Date/Time Smoking Status/Tobacco Use Comment Alejandro romero Oct 17, 2023 03:00 PM ORYX ADMIT TOBACCO SCREEN NO [facility] Dec 31, 2021 03:07 PM ORYX ADMIT TOBACCO SCREEN NO [facility] Apr 06, 2017 11:33 PM QUIT TOBACCO >7 YEARS AGO [facility] Mar 21, 2017 04:29 AM QUIT TOBACCO >7 YEARS AGO [facility] Jan 20, 2014 09:56 AM QUIT TOBACCO >7 YEARS AGO [facility] Jan 02, 2013 01:23 PM QUIT TOBACCO [...] December 18, 2002 11:17 AM TOBACCO USE [facility] Apr 07, 2002 02:25 PM [...] Jun 18, 2001 08:31 AM TOBACCO USE [facility] Advance Directives: All historical and [...] 18, 2018 ADVANCE DIRECTIVE DISCUSSION EMMETT CAMILO [facility] Encounter Notes: All associated encounter notes This section contains the clinical notes associated to the Encounter. Date/Time Encounter Note(s) Provider Source Feb 22, 2024 02:14 PM NONVA NOTE: LOCAL TITLE: COMMUNITY CARE-CARE COORDINATION PLAN NOTE [address] TITLE: NONVA NOTE DATE OF NOTE: FEB 22, 2024@14:14 ENTRY DATE: FEB 22, 2024@14:14:10 AUTHOR: ROQUE SULLIVAN EXP COSIGNER: URGENCY: STATUS: COMPLETED Community Care Consult: Cardiology Consult No: [id number] HSRM Referral #: pending approval Chief Complaint: SOB, dizzy 2 week heart monitor Patient Admitted? No Level of Care Coordination Complex/Chronic Care Coordination was determined from: Chart Review Facility Community Care Office Contact Care Coordination Point of Contact: Roque Sullivan Services: Moderate Care Coordination Services Case Management, if appropriate Direct communications with interdisciplinary team Plan: referral pending DOA approval /es/ ROQUE SULLIVAN MSN RN REGISTERED NURSE Signed: 02/22/2024 14:15 ROQUE SULLIVAN [facility]
--- OUTSIDE RECORDS SUMMARY | 2024-11-02 11:54 | XMS_ITS | Encounter Summary ---
Author Name [facility] [place] Address [address] [place] [address] Care Team Providers Care Animal Breeder Name Role Phone NATALIO BRIDGES [facility] Insurance Providers: All historical and [...] PART B Oct 28, 2001 PART B [id number] Petra DUQUE PATIENT MEDICARE (WNR) MEDICARE (M) PART A Oct 28, 2001 PART A [id number] [phone] Petra DUQUE PATIENT MEDICARE (WNR) MEDICARE (M) PART A Oct 28, 2001 PART A [id number] Petra DUQUE PATIENT Selected Encounter This section includes the information on record at [place] for the Encounter. Date/Time Encounter Type Encounter Description Reason Pro vider Source May 14, 2024 03:01 PM Outpatient Encounter GENERAL SURGERY IHE Encounter Template Text not used by [place] Plan of Treatment: Future Appointments (+ 6 months) and Future Tests (+/- 45 days) The Plan of Treatment section includes future care activities for the patient [facility] [place] [facility] This section includes future appointments and future orders which are active, pending or scheduled. Future Appointments This section includes appointments that were scheduled to occur 6 months from the date of the Encounter, up to a maximum of 20 appointments. The data comes from all [place] treatment facilities. Appointment Date/Time Appointment Type Appointme nt Facility Name May 19, 2024 11:00 AM AMBULATORY - MEDICINE [facility] May 22, 2024 09:30 AM AMBULATORY - SURGERY . [facility] May 27, 2024 09:30 AM AMBULATORY - NONE . [facility] Jul 11, 2024 02:00 PM AMBULATORY - NONE [facility] Aug 07, 2024 07:30 AM AMBULATORY - NONE [facility] Aug 15, 2024 10:30 AM AMBULATORY - MEDICINE [facility] Sep 04, 2024 01:30 PM AMBULATORY - MEDICINE [facility] Sep 05, 2024 10:00 AM AMBULATORY - NONE [facility] Sep 18, 2024 12:20 PM AMBULATORY - MEDICINE [facility] Sep 22, 2024 11:30 AM AMBULATORY - NONE [facility] Oct 27, 2024 11:15 AM AMBULATORY - MEDICINE [facility] Lab Results: +/- 30 days of the encounter This section includes the Chemistry and Hematology Lab Results on record with [place] for the patient. Radiology Reports and Pathology Reports are provided separately, in subsequent sections. Lab Results This section contains the Chemistry/Hematology Results that were resulted 30 days before or 30 daysafter the date of the Encounter. Date/Time Source Result Type Result - Unit Interpretation Reference Range Comment May 03, 2024 06:10 AM [facility] GLUCOSE,BLOOD-poct (ST) Specimen Type: BLOOD Comment: Test Performed by: [id number] Meter #: [id number] Ordering Provider: PALMA WASHBURN III Report Released Date/Time: May 03, 2024 06:30 AM Reporting Lab: [address] [address] Performing Lab: [address] [address] GLUCOSE,BLOOD- poct (STL) 107 mg/dL H 72-May 02, 2024 09:17 PM [facility] GLUCOSE,BLOOD-poct (STL) Specimen Type: BLOOD Comment: Test Performed by: [id number] Meter #: [id number] Ordering Provider: PALMA WASHBURN III Report Released Date/Time: May 02, 2024 10:39 PM Reporting Lab: [address] [address] Performing Lab: [address] [address] GLUCOSE,BLOOD- poct (STL) 122 mg/dL H 72-May 02, 2024 07:15 PM [facility] MRSA SURVL NARES DNA Specimen [...] May 02, 2024 07:37 PM Reporting Lab: [address] [address] Performing Lab: [address] [address] MRSA SURVL NARES DNA Negative Negative May 02, 2024 06:35 PM [facility] GLUCOSE,BLOOD-poct (STL) Specimen Type: BLOOD Comment: Test Performed by: [id number] Meter #: [id number] Ordering Provider: PALMA WASHBURN III Report Released Date/Time: May 02, 2024 06:47 PM Reporting Lab: [place] [address] [place] [address] Performing Lab: [address] [address] GLUCOSE,BLOOD- poct (STL) 107 mg/dL H 72-99 May 02, 2024 04:15 PM [facility] GLUCOSE,BLOOD-poct (STL) Specimen Type: BLOOD Comment: Test Performed by: [id number] Meter #: [id number] Ordering Provider: FILI EDWARDS Report Released Date/Time: May 02, 2024 04:26 PM Reporting Lab: [place] [id number] Performing Lab: [place] [id number] GLUCOSE,BLOOD- poct (STL) 99 mg/dL 72-99 May 02, 2024 09:47 AM [facility] GLUCOSE,BLOOD-poct (STL) Specimen Type: BLOOD Comment: Test Performed by: [id number] Meter #: [id number] Ordering Provider: FILI EDWARDS Report Released Date/Time: May 02, 2024 10:02 AM Reporting Lab: [address] [address] Performing Lab: [address] [address] GLUCOSE,BLOOD- poct (STL) 104 mg/dL H 72-99 Apr 22, 2024 10:25 AM [facility] COMPREHENSIVE METABOLIC PANEL Specimen Type: PLASMA Comment: K result may show a positive bias due to hemolysis. Specimen slightly hemolyzed. Ordering Provider: CHON COULTER Report Released Date/Time: Apr 22, 2024 10:03 AM Reporting Lab: [place] [phone] Performing Lab: [facility] [address] [facility] [address] CREATININE 0.93 mg/dL 0.7-1.3 UREA NITROGEN 10.6 [...] 85.6 >60 Apr 22, 2024 10:25 AM [facility] CBC Specimen Type: BLOOD No comment entered. Ordering Provider: CHON COULTER Report Released Date/Time: Apr 22, 2024 10:03 AM Reporting Lab: [facility] [address] [facility] [address] Performing Lab: [address] [address] WBC 7.2 10*3/uL 3.6-11.2 RBC 5.52 10*6/uL [...] 10*3/uL 0.00-0.60 BASOPHILS, ABSOLUTE 0.02 10*3/uL 0.00-0.20 Social History: Smoking Status (Most current) and Tobacco Use (All prior to encounter date) This section includes the most current, and the historical, smoking and tobacco- related health factors from the [place] facility where the Encounter took place. Current Smoking Status This section includes the most current smoking, or tobacco-related health factor, from the [place] facility where the Encounter took place. Date/Time Current Smoking Status Comment Facil ity Oct 17, 2023 04:53 PM ORYX ADMIT TOBACCO SCREEN NO [facility] Tobacco Use History This section includes a history of the smoking, or tobacco-related health factors, that were collected on or before the date of the Encounter. The data comes from the [place] facility where the Encounter took place. Date/Time Smoking Status/Tobacco Use Comment F acility Oct 17, 2023 03:00 PM ORYX ADMIT TOBACCO SCREEN NO [facility] Dec 31, 2021 03:07 PM ORYX ADMIT TOBACCO SCREEN NO [facility] Apr 06, 2017 11:33 PM QUIT TOBACCO >7 YEARS AGO [facility] Mar 21, 2017 04:29 AM QUIT TOBACCO >7 YEARS AGO [facility] Jan 20, 2014 09:56 AM QUIT TOBACCO >7 YEARS AGO [facility] Jan 02, 2013 01:23 PM QUIT TOBACCO >7 YEARS AGO [facility] May 25, 2010 01:35 PM LIFETIME NON-USER OF TOBACCO [facility] Aug 17, 2009 01:04 PM QUIT TOBACCO >12 M O & <7 YRS AGO [facility] Sep 17, 2008 01:34 PM QUIT TOBACCO >12 M O & <7 YRS AGO [facility] Sep 20, 2006 10:57 AM QUIT TOBACCO >12 M O & <7 YRS AGO [facility] Jun 05, 2006 10:49 AM CURRENT NON-TOBACC O USER-HX OF USE [facility] Jun 05, 2006 10:49 AM TOBACCO TERMINATION STAGE [facility] Jul 14, 2005 11:00 AM CURRENT NON-TOBACC O USER-HX OF USE [facility] Jul 14, 2005 11:00 AM TOBACCO TERMINATION STAGE [facility] Oct 23, 2004 04:56 PM CURRENT NON-TOBACC O USER-HX OF USE [facility] Oct 23, 2004 04:56 PM TOBACCO ACTION STAGE [facility] Apr 07, 2004 10:58 AM CURRENT NON-TOBACC O USER-HX OF USE [facility] Apr 07, 2004 10:58 AM TOBACCO MAINTENANCE STAGE [facility] December 18, 2002 11:17 AM CURRENT TOBACCO USER [facility] December 18, 2002 11:[address] [facility] Apr 07, 2002 02:25 PM CURRENT NON-TOBACC O USER-RECENTLY QUIT quit 3 mo ago [facility] Apr 07, 2002 02:25 PM TOBACCO USE quit 3 mo ago [facility] Nov 19, 2001 10:50 AM CURRENT TOBACCO USER [facility] Jul 16, 2001 08:35 AM CURRENT TOBACCO USER [facility] Jun 18, 2001 08:31 AM CURRENT TOBACCO USER [facility] Jun 18, 2001 08:[address] [facility] Advance Directives: All historical and current Section Date Range: From patient's date of to the date document was created. This section includes ALL of a patient's completed or amended [place] Advance and Rescinded Directives. The entries below indicate that a directive exists for the patient, but an actual copy is not included with this document. The data comes from all [place] facilities. Date Advance Directives Provider Source Feb 18, 2018 ADVANCE DIRECTIVE DISCUSSION EMMETT CAMILO [facility] Radiology Reports: +/- 30 days [...] the Encounter. The data comes from all [facility]. Date/Time Radiology Report Provider Source Apr 22, 2024 10:54 AM CHEST X-RAY, 2 VIE WS: MAURILIO DUQUE [id number] -[id number] M Exm Date: APR 22, 2024@10:54 Req Phys: CHON COULTER Pat Loc: [facility] PREOP EVAL 1 (Req'g Lo Img Loc: -MAIN RADIOLOGY SUITE Service: [address] [address] (Case [id number] COMPLETE) CHEST X-RAY, 2 VIEWS (RAD Detailed) CPT:32283 Reason for Study: preop Clinical History: Report Status: Verified Date Reported: APR 22, 2024 Date Verified: APR 22, 2024 Drafter Civil E-Sig:/ES/Jelani Parkinson MD Report: FINDINGS: The examination was compared with previous examination of September. Heart size is normal. Mediastinal structures appear unremarkable. Both lungs are fully expanded without evidence of pulmonary infiltrates or additional significant findings. Impression: No evidence of acute cardiopulmonary disease. Primary Interpreting Staff: Jealni Parkinson MD, Radiologist (Drafter Civil) /JELANI PRITCHARD [facility] Pathology Reports: +/- 30 days of [...] the Encounter. The data comes from all [facility]. Date/Time Pathology Report Provider Source May 05, 2024 10:41 AM LR SURGICAL PATHOL OGY REPORT: LOCAL TITLE: LR SURGICAL PATHOLOGY REPORT STANDARD TITLE: PATHOLOGY PROCEDURE NOTE DATE OF NOTE: MAY 05, 2024@10:41:27 ENTRY DATE: MAY 05, 2024@10:41:27 AUTHOR: IVAN CASTILLOER: URGENCY: STATUS: COMPLETED $APHDR - - - [...] specimen is for gross examination only. 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 PATHOLOGIST Signed May 05, 2024@10:41 Performing Laboratory: Surgical Pathology Report Performed By: [facility] [address]# [id number] [address] [place] [id number] $FTR - - - - - - [...] - - MAURILIO DUQUE STANDARD FORM 515 ID:[id number] SEX:M :1950 AGE: 73 LOC:[facility]-AP FEE PCP: Natalio Bridges MD /bhupendra CASTILLO M.D., PH.D. PATHOLOGIST Signed: 05/05/2024 10:41 IVAN CASTILLO [facility]
--- OUTSIDE RECORDS SUMMARY | 2024-11-02 11:54 | XMS_ITS | Encounter Summary ---
Author Name [place] Address [address] [place] [address] Care Team Providers Care Government Affairs Director Name Role Phone NATALIO BRIDGES Primary [facility] Insurance Providers: All historical and [...] PART A Oct 28, 2001 PART A [id number] [phone] Petra DUQUE PATIENT MEDICARE (WNR) MEDICARE (M) PART A Oct 28, 2001 PART A [id number] Petra DUQUE PATIENT MEDICARE (WNR) MEDICARE (M) PART B Oct 28, 2001 PART B [id number] [phone] Petra DUQUE PATIENT Selected Encounter This section includes the information on record at [place] for the Encounter. Date/Time Encounter Type Encounter Description Reason Provider Source May 02, 2024 12:04 PM Outpatient Encounter GENERAL SURGERY ANICETO YOUNG Ernie Encounter Template Text not used by [place] Plan of Treatment: Future Appointments (+ 6 months) and Future Tests (+/- 45 days) The Plan of Treatment section includes future care activities for the patient [facility] [place] [facility] This section includes future appointments and future orders which are active, pending or scheduled. Future Appointments This section includes appointments that were scheduled to occur 6 months from the date of the Encounter, up to a maximum of 20 appointments. The data comes from all [place] treatment facilities. Appointment Date/Time Appointment Type Appointme nt Facility Name May 06, 2024 03:30 PM AMBULATORY - MEDICINE [facility] May 19, 2024 11:00 AM AMBULATORY - MEDICINE [facility] May 22, 2024 09:30 AM AMBULATORY - SURGERY [facility] May 27, 2024 09:30 AM AMBULATORY - NONE [facility] Jul 11, 2024 02:00 PM AMBULATORY - NONE [facility] Aug 07, 2024 07:30 AM AMBULATORY - NONE [facility] Aug 15, 2024 10:30 AM AMBULATORY - MEDICINE [facility] Sep 04, 2024 01:30 PM AMBULATORY - MEDICINE [facility] Sep 05, 2024 10:00 AM AMBULATORY - NONE [facility] Sep 18, 2024 12:20 PM AMBULATORY - MEDICINE [facility] Sep 22, 2024 11:30 AM AMBULATORY - NONE [facility] Oct 27, 2024 11:15 AM AMBULATORY - MEDICINE [facility] Lab Results: +/- 30 days of the encounter This section includes the Chemistry and Hematology Lab Results on record with [place] for the patient. Radiology Reports and Pathology Reports are provided separately, in subsequent sections. Lab Results This section contains the Chemistry/Hematology Results that were resulted 30 days before or 30 daysafter the date of the Encounter. Date/Time Source Result Type Result - Unit Interpretation Reference Range Comment May 03, 2024 06:10 AM [facility] GLUCOSE,BLOOD-poct (STL) Specimen Type: BLOOD Comment: Test Performed by: [id number] Meter #: [id number] Ordering Provider: PALMA WASHBURN III Report Released Date/Time: May 03, 2024 06:30 AM Reporting Lab: [address] [address] Performing Lab: [address] [address] GLUCOSE,BLOOD- poct (STL) 107 mg/dL H 72-99 May 02, 2024 09:17 PM [facility] GLUCOSE,BLOOD-poct (STL) Specimen Type: BLOOD Comment: Test Performed by: [id number] Meter #: [id number] Ordering Provider: PALMA WASHBURN III Report Released Date/Time: May 02, 2024 10:39 PM Reporting Lab: [address] [address] Performing Lab: [address] [address] GLUCOSE,BLOOD- poct (STL) 122 mg/dL H 72-May 02, 2024 07:15 PM [facility] MRSA SURVL NARES DNA Specimen Type: NARES [...] May 02, 2024 07:37 PM Reporting Lab: [address] [address] Performing Lab: [address] [address] MRSA SURVL NARES DNA Negative Negative May 02, 2024 06:35 PM [facility] GLUCOSE,BLOOD-poct (STL) Specimen Type: BLOOD Comment: Test Performed by: [id number] Meter #: [id number] Ordering Provider: PALMA WASHBURN III Report Released Date/Time: May 02, 2024 06:47 PM Reporting Lab: [place] [address] [facility] [address] Performing Lab: [address] [address] GLUCOSE,BLOOD- poct (STL) 107 mg/dL H 72-99 May 02, 2024 04:15 PM [facility] GLUCOSE,BLOOD-poct (STL) Specimen Type: BLOOD Comment: Test Performed by: [id number] Meter #: [id number] Ordering Provider: FILI EDWARDS Report Released Date/Time: May 02, 2024 04:26 PM Reporting Lab: [place] [address] [facility] [address] Performing Lab: [place] [address] [facility] [address] GLUCOSE,BLOOD- poct (STL) 99 mg/dL 72-99 May 02, 2024 09:47 AM [facility] GLUCOSE,BLOOD-poct (STL) Specimen Type: BLOOD Comment: Test Performed by: [id number] Meter #: [id number] Ordering Provider: FILI EDWARDS Report Released Date/Time: May 02, 2024 10:02 AM Reporting Lab: [place] [address] [facility] [address] Performing Lab: [address] [address] GLUCOSE,BLOOD- poct (STL) 104 mg/dL H 72-99 Apr 22, 2024 10:25 AM [facility] COMPREHENSIVE METABOLIC PANEL Specimen Type: PLASMA Comment: K result may show a positive bias due to hemolysis. Specimen slightly hemolyzed. Ordering Provider: CHON COULTER Report Released Date/Time: Apr 22, 2024 10:03 AM Reporting Lab: [address] [address] Performing Lab: [address] [address] CREATININE 0.93 mg/dL 0.7-1.3 UREA NITROGEN 10.6 [...] 85.6 >60 Apr 22, 2024 10:25 AM [facility] CBC Specimen Type: BLOOD No comment entered. Ordering Provider: CHON COULTER Report Released Date/Time: Apr 22, 2024 10:03 AM Reporting Lab: [address] [address] Performing Lab: [address] [address] WBC 7.2 10*3/uL 3.6-11.2 RBC 5.52 10*6/uL [...] Source May 02, 2024 10:58 PM 7 [facility] May 02, 2024 09:30 PM 97.9 66 165/78 20 98 8 [facility] May 02, 2024 08:15 PM 4 [facility] May 02, 2024 07:15 PM 7 [facility] May 02, 2024 06:39 PM 7 [facility] Social History: Smoking Status (Most current) and Tobacco Use (All prior to encounter date) This section includes the most current, and the historical, smoking and tobacco- related health factors from the [place] facility where the Encounter took place. Current Smoking Status This section includes the most current smoking, or tobacco-related health factor, from the [place] facility where the Encounter took place. Date/Time Current Smoking Status Comment Tristan ity Oct 17, 2023 04:53 PM ORYX ADMIT TOBACCO SCREEN NO [facility] Tobacco Use History This section includes a history of the smoking, or tobacco-related health factors, that were collected on or before the date of the Encounter. The data comes from the [place] facility where the Encounter took place. Date/Time Smoking Status/Tobacco Use Comment F acility Oct 17, 2023 03:00 PM ORYX ADMIT TOBACCO SCREEN NO [facility] Dec 31, 2021 03:07 PM ORYX ADMIT TOBACCO SCREEN NO [facility] Apr 06, 2017 11:33 PM QUIT TOBACCO >7 YEARS AGO [facility] Mar 21, 2017 04:29 AM QUIT TOBACCO >7 YEARS AGO [facility] Jan 20, 2014 09:56 AM QUIT TOBACCO >7 YEARS AGO [facility] Jan 02, 2013 01:23 PM QUIT TOBACCO >7 YEARS AGO [facility] May 25, 2010 01:35 PM LIFETIME NON-USER OF TOBACCO [facility] Aug 17, 2009 01:04 PM QUIT TOBACCO >12 M O & <7 YRS AGO [facility] Sep 17, 2008 01:34 PM QUIT TOBACCO >12 M O & <7 YRS AGO [facility] Sep 20, 2006 10:57 AM QUIT TOBACCO >12 M O & <7 YRS AGO [facility] Jun 05, 2006 10:49 AM CURRENT NON-TOBACC O USER-HX OF USE [facility] Jun 05, 2006 10:49 AM TOBACCO TERMINATION STAGE [facility] Jul 14, 2005 11:00 AM CURRENT NON-TOBACC O USER-HX OF USE [facility] Jul 14, 2005 11:00 AM TOBACCO TERMINATION STAGE [facility] Oct 23, 2004 04:56 PM CURRENT NON-TOBACC O USER-HX OF USE [facility] Oct 23, 2004 04:56 PM TOBACCO ACTION STAGE [facility] Apr 07, 2004 10:58 AM CURRENT NON-TOBACC O USER-HX OF USE [facility] Apr 07, 2004 10:58 AM TOBACCO MAINTENANCE STAGE [facility] December 18, 2002 11:17 AM CURRENT TOBACCO USER [facility] December 18, 2002 11:17 AM TOBACCO USE [facility] Apr 07, 2002 02:25 PM CURRENT NON-TOBACC O USER-RECENTLY QUIT quit 3 mo ago [facility] Apr 07, 2002 02:25 PM TOBACCO USE quit 3 mo ago [facility] Nov 19, 2001 10:50 AM CURRENT TOBACCO USER [facility] Jul 16, 2001 08:35 AM CURRENT TOBACCO USER [facility] Jun 18, 2001 08:31 AM CURRENT TOBACCO USER [facility] Jun 18, 2001 08:[address] [facility] Advance Directives: All historical and current Section Date Range: From patient's date of to the date document was created. This section includes ALL of a patient's completed or amended [place] Advance and Rescinded Directives. The entries below indicate that a directive exists for the patient, but an actual copy is not included with this document. The data comes from all [place] facilities. Date Advance Directives Provider Source Feb 18, 2018 ADVANCE DIRECTIVE DISCUSSION EMMETT CAMILO [facility] Radiology Reports: +/- 30 days [...] the Encounter. The data comes from all [place] treatment facilities. Date/Time Radiology Report Provider Source Apr 22, 2024 10:54 AM CHEST X-RAY, 2 VIE WS: MAURILIO DUQUE [id number] -1950 M Ex Date: APR 22, 2024@10:54 Req Phys: CHON COULTER Pat Loc: -ANES PREOP EVAL 1 (Req'g Lo Img Loc: -MAIN RADIOLOGY SUITE Service: [facility], [facility] [address] [place] [address] (Case [id number] COMPLETE) CHEST X-RAY, 2 VIEWS (RAD Detailed) CPT:43467 Reason for Study: preop Clinical History: Report Status: Verified Date Reported: APR 22, 2024 Date Verified: APR 22, 2024 Sewing Machine Repairer E-Sig:/ES/Jelani Luong MD Report: FINDINGS: The examination was compared with previous examination of September. Heart size is normal. Mediastinal structures appear unremarkable. Both lungs are fully expanded without evidence of pulmonary infiltrates or additional significant findings. Impression: No evidence of acute cardiopulmonary disease. Primary Interpreting Staff: Jelani Luong MD, Radiologist (Sewing Machine Repairer) /QMB JELANI LUONG [facility] Pathology Reports: +/- 30 days [...] the Encounter. The data comes from all [place] treatment facilities. Date/Time Pathology Report Provider Source [...] specimen is for gross examination only. 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 PATHOLOGIST Signed May 05, 2024@10:41 Performing Laboratory: Surgical Pathology Report Performed By: [facility] [address] [place], [place] [address]IA# [id number] [facility] [address] [place] [address] $FTR - - - - - - - - - - - - - - - - - - - - - - - - - - - - - - - - - - - - - - - - (End of report) IVAN CASTILLO MD vp of customer experience strategy Date May 05, 2024 - - - - - - - - - - - - - - - - - - - - - - - - - - - - - - - - - - - - - - - - MAURILIO DUQUE STANDARD FORM 515 ID:[id number] SEX:M :1950 AGE: 73 LOC:[facility]-AP FEE PCP: Natalio Bridges MD /radha/ IVAN CASTILLO M.D., PH.D. PATHOLOGIST Signed: 05/05/2024 10:41 IVAN CASTILLO [facility] Encounter Notes: All associated encounter notes This section contains the clinical notes associated to the Encounter. Date/Time Encounter Note(s) Provider Source May 02, 2024 12:04 PM NURSING INPATIENT NOTE: LOCAL TITLE: [facility] ACUTE INPATIENT NSG SHIFT ASSESSMENT STANDARD TITLE: NURSING INPATIENT NOTE DATE OF NOTE: MAY 02, 2024@12:04 ENTRY DATE: MAY 02, 2024@12:04:52 AUTHOR: ANICETO YOUNG COSIGNER: URGENCY: STATUS: COMPLETED Version 2.2 Charting in accordance with [place] APPROVED APACHE STANDARD (TXAES) ACUTE INPATIENT/REHABILITATION NURSING ADMISSION SCREENING, ASSESSMENT, AND STANDARDS OF CARE GENITOURINARY Urinary Catheter: Type: Indwelling: Discontinue: Urethral Date/Time: Comment: by [place] AT END OF CASE INTEGUMENTARY/SKIN/WOUND - (INCLUDING [place]) SEE NOTE: VAAES SKIN INPECTION/ASSESSMENT /es/ ANICETO YOUNG, MSN, RN REGISTERED NURSE Signed: 05/02/2024 12:06 ANICETO YOUNG [facility]
--- OUTSIDE RECORDS SUMMARY | 2024-11-02 11:54 | XMS_ITS | Encounter Summary ---
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 Date/Time Encounter Type Encounter Description Reason Pro vider Source Feb 25, 2024 08:24 AM Outpatient Encounter ADMIN PAT ACTIVTIES (EMILIANO) [facility] Encounter Template Text not used by [facility] Plan of Treatment: Future Appointments (+ 6 months) and Future Tests (+/- 45 days) The Plan of Treatment section includes future care activities for the [facility] This section includes future appointments and future orders which are active, pending or scheduled. Future Appointments This section includes appointments that were scheduled to occur 6 months from the date of the Encounter, up to a maximum of 20 appointments. The data comes from all [place] treatment facilities. Appointment Date/Time Appointment Type Appointme nt Facility Name Feb 27, 2024 08:15 AM AMBULATORY - MEDICINE [facility] Mar 26, 2024 11:00 AM AMBULATORY - NONE . [facility] Mar 27, 2024 12:40 PM AMBULATORY - MEDICINE [facility] Apr 10, 2024 10:30 AM AMBULATORY - SURGERY [facility] Apr 22, 2024 10:00 AM AMBULATORY - SURGERY [facility] May 02, 2024 09:00 AM AMBULATORY - NONE [facility] May 06, 2024 03:30 PM AMBULATORY - MEDICINE [facility] May 19, 2024 11:00 AM AMBULATORY - MEDICINE [facility] May 22, 2024 09:30 AM AMBULATORY - SURGERY [facility] May 27, 2024 09:30 AM AMBULATORY - NONE [facility] Jul 11, 2024 02:00 PM AMBULATORY - NONE [facility] Aug 07, 2024 07:30 AM AMBULATORY - NONE [facility] Aug 15, 2024 10:30 AM AMBULATORY - MEDICINE [facility] Active, Pending, and Scheduled Orders This section includes a listing of several types of active, pending, and scheduled orders, including clinic medications orders, diagnostic test orders, procedure orders and consult orders; where the start date of the order is 45 days before the date of the Encounter or 45 days after the date of theEncounter. The data comes from all [place] treatment facilities. Test Date/Time Test Type Test Details Facility Name Jan 15, 2024 12:00 AM Laboratory - Chemistry Order CBC BLOOD SP [facility] Jan 15, 2024 12:00 AM Laboratory - Chemistry Order HGA 1C BLOOD SP [facility] History: Smoking Status (Most current) and Tobacco Use (All prior to encounter date) This section includes the most current, and the historical, smoking and tobacco- related health factors from the [place] facility where the Encounter took place. Current Smoking Status This section includes the most current smoking, or tobacco-related health factor, from the [place] facility where the Encounter took place. Date/Time Current Smoking Status Comment Facil ity Oct 17, 2023 04:53 PM ORYX ADMIT TOBACCO SCREEN NO [facility] Tobacco Use History This section includes a history of the smoking, or tobacco-related health factors, that were collected on or before the date of the Encounter. The data comes from the [place] facility where the Encounter took place. Date/Time Smoking Status/Tobacco Use Comment F acility Oct 17, 2023 03:00 PM ORYX ADMIT TOBACCO SCREEN NO [facility] Dec 31, 2021 03:07 PM ORYX ADMIT TOBACCO SCREEN NO [facility] Apr 06, 2017 11:33 PM QUIT TOBACCO >7 YEARS AGO [facility] Mar 21, 2017 04:29 AM QUIT TOBACCO >7 YEARS AGO [facility] Jan 20, 2014 09:56 AM QUIT TOBACCO >7 YEARS AGO [facility] Jan 02, 2013 01:23 PM QUIT TOBACCO >7 YEARS AGO [facility] May 25, 2010 01:35 PM LIFETIME NON-USER OF TOBACCO [facility] Aug 17, 2009 01:04 PM QUIT TOBACCO >12 M O & <7 YRS AGO [facility] Sep 17, 2008 01:34 PM QUIT TOBACCO >12 M O & <7 YRS AGO [facility] Sep 20, 2006 10:57 AM QUIT TOBACCO >12 M O & <7 YRS AGO [facility] Jun 05, 2006 10:49 AM CURRENT NON-TOBACC O USER-HX OF USE [facility] Jun 05, 2006 10:49 AM TOBACCO TERMINATION STAGE [facility] Jul 14, 2005 11:00 AM CURRENT NON-TOBACC O USER-HX OF USE [facility] Jul 14, 2005 11:00 AM TOBACCO TERMINATION STAGE [facility] Oct 23, 2004 04:56 PM CURRENT NON-TOBACC O USER-HX OF USE [facility] Oct 23, 2004 04:56 PM TOBACCO ACTION STAGE [facility] Apr 07, 2004 10:58 AM CURRENT NON-TOBACC O USER-HX OF USE [facility] Apr 07, 2004 10:58 AM TOBACCO MAINTENANCE STAGE [facility] December 18, 2002 11:17 AM CURRENT TOBACCO USER [facility] December 18, 2002 11:17 AM TOBACCO USE [facility] Apr 07, 2002 02:25 PM CURRENT NON-TOBACC O USER-RECENTLY QUIT quit 3 mo ago [facility] Apr 07, 2002 02:25 PM TOBACCO USE quit 3 mo ago [facility] Nov 19, 2001 10:50 AM CURRENT TOBACCO USER [facility] Jul 16, 2001 08:35 AM CURRENT TOBACCO USER [facility] Jun 18, 2001 08:31 AM CURRENT TOBACCO USER [facility] Jun 18, 2001 08:31 AM TOBACCO USE [facility] Advance Directives: All historical and current Section Date Range: From patient's date of to the date document was created. This section includes ALL of a patient's completed or amended [place] Advance and Rescinded Directives. The entries below indicate that a directive exists for the patient, but an actual copy is not included with this document. The data comes from all [place] facilities. Date Advance Directives Provider Source Feb 18, 2018 ADVANCE DIRECTIVE DISCUSSION EMMETT CAMILO [facility] Encounter Notes: All associated encounter notes This section contains the clinical notes associated to the Encounter. Date/Time Encounter Note(s) Provider Source Feb 25, 2024 08:24 AM PHYSICIAN LETTERS: LOCAL TITLE: PHYSICIAN LETTERS STANDARD TITLE: PHYSICIAN LETTERS DATE OF NOTE: FEB 25, 2024@08:24 ENTRY DATE: FEB 25, 2024@08:24:28 AUTHOR: MAURILIO SCHAFER COSIGNER: URGENCY: STATUS: COMPLETED [facility] [address] [place] [address] MAURILIO DUQUE [address] [place], [place] [address] Dear Maurilio Duque: Thank you for choosing the [facility] as your primary choice for health care. A home heart monitor has been ordered for you, this will be sent to you by [employer] in [facility], via [employer]. Please plan to wear the monitor for the prescribed time period of 14 days. After you complete the monitoring period, please send the monitor back via [employer] in the pre-addressed/pre-paid box it came in. DO NOT GIVE TO THE POST OFFICE UNLESS THAT IS SPECIFIED ON THE RETURN LABEL [employer] will generate a report, which will be reviewed by a [place] Pole Framer Machine, results will be uploaded to your record. [employer] contact number is [phone] press 1 then 2 for help 24 hours/day You may receive a text asking you to confirm the appt, please answer yes. Please call us at [phone], extension [phone] - if you have any questions. If you would like help applying or removing your monitor you are welcome to come to either the [facility] office [id number] [facility] 1 room B206 (next to Blood Draw)ext. [phone] or the [facility] office - Building [address] Room 2C[address]124 Nurse Practitioner Clinic ext. [phone] Your good health is important to us. Thank you for your service! Sincerely, Maurilio Schafer [employer] [place],MAURILIO MANDUJANO S[facility]TER [facility]
--- OUTSIDE RECORDS SUMMARY | 2024-11-02 11:55 | XMS_ITS | Encounter Summary ---
Author Name [facility] [facility] [place] Address [address] [place] [id number] Care Team Providers Care Transmission Supervisor Name Role Phone EBERBENI NATALIO Primary Care [...] PART B Oct 28, 2001 PART B [id number] Petra DUQUE PATIENT MEDICARE (WNR) MEDICARE (M) PART A Oct 28, 2001 PART A [id number] Petra DUQUE PATIENT MEDICARE (WNR) MEDICARE (M) PART A Oct 28, 2001 PART A [id number] Petra DUQUE PATIENT Selected Encounter This section includes the information on record at [place] for the Encounter. Date/Time Encounter Type Encounter Description Reason Provider Source Nov 14, 2023 10:15 AM OFF/OP CONSLTJ NEW/EST HI 55 PULMONARY/CHEST ICD-10-CM R06.00 Dyspnea, unspecified HAKEEMELAINA Campbell Ernie Encounter Template Text not used by [place] Assessments - Encounter Diagnoses This section includes the primary and secondary diagnoses documented for the Encounter. Date/Time Primary/Secondary Diagnosis Diagnosis Name Provider Source Nov 14, 2023 11:09 AM PRIMARY Dyspnea, unspecified ELAINA STALLINGS [facility] Nov 14, 2023 11:09 AM SECONDARY Other nonspecific abnormal finding of lung field ELAINA STALLINGS [facility] Plan of Treatment: Future Appointments (+ 6 months) and Future Tests (+/- 45 days) The Plan of Treatment section includes future care activities for the patient from all [place] treatmentfacilities. This section includes future appointments and future orders which are active, pending or scheduled. Future Appointments This section includes appointments that were scheduled to occur 6 months from the date of the Encounter, up to a maximum of 20 appointments. The data comes from all [place] treatment facilities. Appointment Date/Time Appointment Type Appointme nt Facility Name Nov 19, 2023 12:30 PM AMBULATORY - MEDICINE [facility] November 30, 2023 12:58 PM AMBULATORY - MEDICINE [facility] December 11, 2023 08:00 AM AMBULATORY - MEDICINE [facility] December 11, 2023 09:00 AM AMBULATORY - MEDICINE [facility] December 11, 2023 09:15 AM AMBULATORY - SURGERY [facility] December 13, 2023 09:30 AM AMBULATORY - SURGERY [facility] December 17, 2023 12:00 PM AMBULATORY - NONE [facility] Jan 01, 2024 10:00 AM AMBULATORY - NONE . [facility] Jan 03, 2024 10:00 AM AMBULATORY - SURGERY [facility] Jan 14, 2024 08:30 AM AMBULATORY - MEDICINE [facility] Jan 14, 2024 09:30 AM AMBULATORY - MEDICINE [facility] Jan 23, 2024 11:30 AM AMBULATORY - REHAB MEDICIN E [facility] Feb 11, 2024 10:00 AM AMBULATORY - SURGERY . [facility] Feb 22, 2024 10:30 AM AMBULATORY - MEDICINE [facility] Feb 27, 2024 08:15 AM AMBULATORY - MEDICINE [facility] Mar 26, 2024 11:00 AM AMBULATORY - NONE [facility] Mar 27, 2024 12:40 PM AMBULATORY - MEDICINE [facility] Apr 10, 2024 10:30 AM AMBULATORY - SURGERY [facility] Apr 22, 2024 10:00 AM AMBULATORY - SURGERY [facility] May 02, 2024 09:00 AM AMBULATORY - NONE [facility] Active, Pending, and Scheduled Orders This section includes a listing of several types of active, pending, and scheduled orders, including clinic medications orders, diagnostic test orders, procedure orders and consult orders; where the start date of the order is 45 days before the date of the Encounter or 45 days after the date of theEncounter. The data comes from all [place] treatment facilities. Test Date/Time Test Type Test Details Facility Name Oct 17, 2023 06:31 PM Laboratory - Chemi stry Order MRSA SURVL NARES DNA NARES WC [facility] Lab Results: +/- 30 days of the encounter This section includes the Chemistry and Hematology Lab Results on record with [place] for the patient. Radiology Reports and Pathology Reports are provided separately, in subsequent sections. Lab Results This section contains the Chemistry/Hematology Results that were resulted 30 days before or 30 daysafter the date of the Encounter. Date/Time Source Result Type Result - Unit Interpretation Reference Range Comment November 30, 2023 03:50 PM [facility] BLOOD GAS PANEL ABG ([facility]) Specimen Type: VENOUS BLOOD Comment: Test Performed by: [id number] Meter #: [id number] Ordering Provider: MARCELLO SEE Report Released Date/Time: November 30, 2023 03:50 PM Reporting Lab: [address] [place] [address] Performing Lab: [address] [address] GEM PH 7.40 7.31-7.41 GEM PCO2 45 [...] TEMP 37.0 November 30, 2023 03:45 PM [facility] LACTIC ACID (STL-PB) Specimen Type: PLASMA No comment entered. Ordering Provider: JAMIL ROBINS Report Released Date/Time: November 30, 2023 03:00 PM Reporting Lab: [address] [address] Performing Lab: [address] [address] LACTIC ACID (STL-PB) 1.3 mmol/L 0.5-2.0 November 30, 2023 03:39 PM [facility] COVID-19 DIAGNOSTIC (FLU/RSV)(STL) Specimen Type: NASOPHARYNX [...] November 30, 2023 03:00 PM Reporting Lab: [address] [address] Performing Lab: [address] [address] INFLUENZA A Negative Negative INFLUENZA B Negative Negative COVID-19 (STL-PB) Not Detected Not Detected RSV (Cepheid) NEGATIVE Negative November 30, 2023 01:10 PM [facility] COMPREHENSIVE METABOLIC PANEL Specimen Type: PLASMA Comment: Aspartate Transaminase result may show positive bias due to hemolysis. K result canceled due to hemolysis. Specimen moderately hemolyzed. K cancelled due to moderate hemolysis. Called to Dominick Damon RN at 1445 on 11/30/2023 by KIANNA. Ordering Provider: MARCELLO SEE Report Released Date/Time: November 30, 2023 01:08 PM Reporting Lab: [address] [address] Performing Lab: [address] [address] CREATININE 0.99 mg/dL 0.7-1.3 UREA NITROGEN 13.7 [...] 79.4 >60 November 30, 2023 01:10 PM [facility] URINALYSIS W/ CX REFLEX (STL-PB) Specimen Type: URINE No comment entered. Ordering Provider: MARCELLO SEE Report Released Date/Time: November 30, 2023 01:08 PM Reporting Lab: [address] [address] Performing Lab: [address] [address] URINE COLOR Yellow Yellow U.BILIRUBIN Negative mg/dL [...] 1.005-1.02 9 November 30, 2023 01:10 PM [facility] CBC Specimen Type: BLOOD Comment: Platelet count verified by repeat analysis. No clot found in specimen. No platelet clumping observed in smear. Ordering Provider: MARCELLO SEE Report Released Date/Time: November 30, 2023 01:08 PM Reporting Lab: [facility] [address] [place] [address] Performing Lab: [address] [address] WBC 8.4 10*3/uL 3.6-11.2 RBC 6.08 10*6/uL [...] 10*3/uL 0.00-0.20 Nov 19, 2023 12:53 PM [facility] MICRAL/CREAT PROFILE (STL) Specimen Type: URINE No comment entered. Ordering Provider: NATALIO BRIDGES Report Released Date/Time: Oct 25, 2023 08:36 AM Reporting Lab: [address] [address] Performing Lab: [address] [address] URINE ALBUMIN (PB-STL) 29.1 mg/L uACR (STL) 9 mg/g 0-29 CREATININE URINE/OTHERS 314.1 mg/dL H 63-166 Nov 19, 2023 12:50 PM [facility] D-DIMER HS (MA-STL-PB) Specimen Type: PLASMA No comment entered. Ordering Provider: JEANNETTE PEÑA Report Released Date/Time: Nov 19, 2023 12:31 PM Reporting Lab: [address] [address] Performing Lab: [address] [address] D-DIMER HS (MA-STL-PB) 371 <500 Nov 19, 2023 12:50 PM [facility] TROPONIN I Specimen Type: PLASMA No comment entered. Ordering Provider: JEANNETTE PEÑA Report Released Date/Time: Nov 19, 2023 12:31 PM Reporting Lab: [address] [address] Performing Lab: [address] [address] TROPONIN I <0.010 ng/mL 0-0.033 Oct 22, 2023 11:07 AM [facility] GLUCOSE,BLOOD-poct (STL) Specimen Type: BLOOD Comment: Test Performed by: [id number] Meter #: [id number] Ordering Provider: FELIX CURTIS Report Released Date/Time: Oct 22, 2023 11:45 AM Reporting Lab: [address] [address] Performing Lab: [address] [address] GLUCOSE,BLOOD- poct (STL) 104 mg/dL H 72-99 Oct 22, 2023 06:36 AM [facility] GLUCOSE,BLOOD-poct (STL) Specimen Type: BLOOD Comment: Test Performed by: [id number] Meter #: [id number] Ordering Provider: FELIX CURTIS Report Released Date/Time: Oct 22, 2023 07:17 AM Reporting Lab: [address] [address] Performing Lab: [address] [address] GLUCOSE,BLOOD- poct (STL) 112 mg/dL H 72-99 Oct 21, 2023 08:47 PM [facility] GLUCOSE,BLOOD-poct (STL) Specimen Type: BLOOD Comment: Test Performed by: [id number] Meter #: [id number] Ordering Provider: FELIX CURTIS Report Released Date/Time: Oct 21, 2023 09:51 PM Reporting Lab: [place] [address] [facility] [address] Performing Lab: [address] [address] GLUCOSE,BLOOD- poct (STL) 127 mg/dL H -Oct 21, 2023 04:19 PM [facility] GLUCOSE,BLOOD-poct (STL) Specimen Type: BLOOD Comment: Test Performed by: [id number] Meter #: [id number] Ordering Provider: FELIX CURTIS Report Released Date/Time: Oct 21, 2023 04:43 PM Reporting Lab: [address] [address] Performing Lab: [address] [address] GLUCOSE,BLOOD- poct (STL) 117 mg/dL H Oct 21, 2023 11:25 AM [facility] GLUCOSE,BLOOD-poct (STL) Specimen Type: BLOOD Comment: Test Performed by: [id number] Meter #: [id number] Ordering Provider: KIRSTENMED Report Released Date/Time: Oct 21, 2023 11:51 AM Reporting Lab: [address] [address] Performing Lab: [address] [address] GLUCOSE,BLOOD- poct (STL) 123 mg/dL H Oct 20, 2023 04:08 PM [facility] GLUCOSE,BLOOD-poct (STL) Specimen Type: BLOOD Comment: Test Performed by: [id number] Meter #: [id number] Ordering Provider: KIRSTENMED Report Released Date/Time: Oct 20, 2023 04:25 PM Reporting Lab: [address] [address] Performing Lab: [address] [address] GLUCOSE,BLOOD- poct (STL) 137 mg/dL H Oct 20, 2023 11:12 AM [facility] GLUCOSE,BLOOD-poct (STL) Specimen Type: BLOOD Comment: Test Performed by: [id number] Meter #: [id number] Ordering Provider: KIRSTENMED Report Released Date/Time: Oct 20, 2023 04:25 PM Reporting Lab: [place] [address] [facility] [address] Performing Lab: [place] [address] [facility] [address] GLUCOSE,BLOOD- poct (STL) 134 mg/dL H 72-99 Oct 19, 2023 09:23 PM [facility] GLUCOSE,BLOOD-poct (STL) Specimen Type: BLOOD Comment: Test Performed by: [id number] Meter #: [id number] Ordering Provider: KIRSTEN,MED Report Released Date/Time: Oct 19, 2023 09:34 PM Reporting Lab: [place] [address] [facility] [address] Performing Lab: [place] [address] [facility] [address] GLUCOSE,BLOOD- poct (STL) 117 mg/dL H 72-99 Oct 19, 2023 03:55 PM [facility] GLUCOSE,BLOOD-poct (STL) Specimen Type: BLOOD Comment: Test Performed by: [id number] Meter #: [id number] Ordering Provider: KIRSTENMED Report Released Date/Time: Oct 19, 2023 04:23 PM Reporting Lab: [place] [address] [facility] [address] Performing Lab: [place] [address] [facility] [address] GLUCOSE,BLOOD- poct (STL) 144 mg/dL H 72-99 Oct 19, 2023 11:48 AM [facility] GLUCOSE,BLOOD-poct (STL) Specimen Type: BLOOD Comment: Test Performed by: [id number] Meter #: [id number] Ordering Provider: KIRSTENMED Report Released Date/Time: Oct 19, 2023 12:13 PM Reporting Lab: [place] [address] [facility] [address] Performing Lab: [place] [address] [facility] [address] GLUCOSE,BLOOD- poct (STL) 129 mg/dL H 72-99 Oct 19, 2023 07:22 AM [facility] MAGNESIUM Specimen Type: PLASMA Comment: No hemolysis noted. Ordering Provider: ANABEL DORANTES Report Released Date/Time: Oct 18, 2023 03:18 PM Reporting Lab: [address] [address] Performing Lab: [address] [address] MAGNESIUM 2.1 mg/dL 1.6-2.6 Oct 19, 2023 07:22 AM [facility] RENAL PANEL Specimen Type: PLASMA Comment: No hemolysis noted. Ordering Provider: ANABEL DORANTES Report Released Date/Time: Oct 18, 2023 03:18 PM Reporting Lab: [address] [address] Performing Lab: [address] [address] CREATININE 0.91 mg/dL 0.7-1.3 UREA NITROGEN 13.0 mg/dL 9.0-25.0 GLUCOSE 126 mg/dL H 72-99 SODIUM 141 meq/L 136-145 POTASSIUM 3.6 meq/L 3.5-5 CHLORIDE 111 meq/L H 98-107 CARBON DIOXIDE 22 meq/L 22-31 CALCIUM 9.4 mg/dL 8.4-10.4 PHOSPHOROUS 2.5 mg/dL 2.3-4.7 ALBUMIN 3.5 g/dL 3.4-5 EGFR (CKD-EPI 2020) 87.9 >60 Oct 19, 2023 07:22 AM [facility] CBC Specimen Type: BLOOD No comment entered. Ordering Provider: ANABEL DORANTES Report Released Date/Time: Oct 18, 2023 03:18 PM Reporting Lab: [address] [address] Performing Lab: [address] [address] WBC 9.5 10*3/uL 3.6-11.2 RBC 4.78 10*6/uL [...] 10*3/uL 0.00-0.20 Oct 19, 2023 04:39 AM [facility] GLUCOSE,BLOOD-poct (STL) Specimen Type: BLOOD Comment: Test Performed by: [id number] Meter #: [id number] Ordering Provider: FELIX CURTIS Report Released Date/Time: Oct 19, 2023 06:38 AM Reporting Lab: [address] [address] Performing Lab: [address] [address] GLUCOSE,BLOOD- poct (STL) 123 mg/dL H 72-99 Oct 18, 2023 09:20 PM [facility] GLUCOSE,BLOOD-poct (STL) Specimen Type: BLOOD Comment: Test Performed by: [id number] Meter #: [id number] Ordering Provider: KIRSTENMED Report Released Date/Time: Oct 19, 2023 12:34 AM Reporting Lab: [address] [address] Performing Lab: [address] [place] [address] GLUCOSE,BLOOD- poct (STL) 116 mg/dL H 72-99 Oct 18, 2023 04:06 PM [facility] GLUCOSE,BLOOD-poct (STL) Specimen Type: BLOOD Comment: Test Performed by: [id number] Meter #: [id number] Ordering Provider: FELIX CURTIS Report Released Date/Time: Oct 18, 2023 04:41 PM Reporting Lab: [address] [address] Performing Lab: [address] [address] GLUCOSE,BLOOD- poct (STL) 234 mg/dL H 72-Oct 18, 2023 11:12 AM [facility] GLUCOSE,BLOOD-poct (STL) Specimen Type: BLOOD Comment: Test Performed by: [id number] Meter #: [id number] Ordering Provider: FELIX CUTRIS Report Released Date/Time: Oct 18, 2023 11:30 AM Reporting Lab: [address] [address] Performing Lab: [address] [address] GLUCOSE,BLOOD- poct (STL) 171 mg/dL H 72-Oct 18, 2023 10:47 AM [facility] MRSA SURVL NARES DNA Specimen Type: [...] Oct 17, 2023 09:51 PM Reporting Lab: [address] [address] Performing Lab: [address] [address] MRSA SURVL NARES DNA Negative Negative Oct 18, 2023 06:43 AM [facility] RENAL PANEL Specimen Type: PLASMA Comment: No hemolysis noted. Ordering Provider: ANABEL DORANTES Report Released Date/Time: Oct 17, 2023 06:32 PM Reporting Lab: [address] [address] Performing Lab: [address] [address] CREATININE 0.86 mg/dL 0.7-1.3 UREA NITROGEN 13.2 mg/dL 9.0-25.0 GLUCOSE 160 mg/dL H 72-99 SODIUM 139 meq/L 136-145 POTASSIUM 3.6 meq/L 3.5-5 CHLORIDE 107 meq/L 98-107 CARBON DIOXIDE 22 meq/L 22-31 CALCIUM 9.9 mg/dL 8.4-10.4 PHOSPHOROUS 2.1 mg/dL L 2.3-4.7 ALBUMIN 3.8 g/dL 3.4-5 EGFR (CKD-EPI 2020) 90.3 >60 Oct 18, 2023 06:43 AM [facility] CBC Specimen Type: BLOOD No comment entered. Ordering Provider: ANABEL DORANTES Report Released Date/Time: Oct 17, 2023 06:32 PM Reporting Lab: [address] [address] Performing Lab: [address] [address] WBC 14.2 10*3/uL H 3.6-11.2 RBC 4.85 [...] 10*3/uL 0.00-0.20 Oct 18, 2023 05:51 AM [facility] GLUCOSE,BLOOD-poct (STL) Specimen Type: BLOOD Comment: Test Performed by: [id number] Meter #: [id number] Ordering Provider: FELIX CURTIS Report Released Date/Time: Oct 18, 2023 07:13 AM Reporting Lab: [address] [address] Performing Lab: [address] [address] GLUCOSE,BLOOD- poct (STL) 158 mg/dL H 72-99 Oct 17, 2023 11:00 PM [facility] LEGIONELLA Ag (Urine only) (STL-PB) Specimen Type: URINE No comment entered. Ordering Provider: ANABEL DORANTES Report Released Date/Time: Oct 17, 2023 06:32 PM Reporting Lab: [address] [address] Performing Lab: [address] [address] LEGIONELLA Ag (Urine only) (STL-PB) NEGATIVE NOT DETECTED Oct 17, 2023 07:53 PM [facility] GLUCOSE,BLOOD-poct (STL) Specimen Type: BLOOD Comment: Test Performed by: [id number] Meter #: [id number] Ordering Provider: FELIX CURTIS Report Released Date/Time: Oct 18, 2023 07:39 AM Reporting Lab: [place] [address] [facility] [address] Performing Lab: [facility] [address] [facility] [address] GLUCOSE,BLOOD- poct (STL) 212 mg/dL H 72-99 Oct 17, 2023 02:00 PM [facility] URINALYSIS (STL-PB) Specimen Type: URINE No comment entered. Ordering Provider: CRISTELA HAMPTON Report Released Date/Time: Oct 17, 2023 09:09 AM Reporting Lab: [facility] [address] [facility] [address] Performing Lab: [place] [address] [facility] [address] URINE COLOR Colorless Yellow U.BILIRUBIN Negative mg/dL Negative U.PH 6.0 5.0-8.0 APPEARANCE Clear Clear U.NITRITE Negative mg/dL Negative URN.GLUCOSE Normal mg/dL Negative URN.PROTEIN Negative mg/dL Neg ative-2 0 URN.UROBILINOG EN Normal mg/dL Normal URN.BLOOD Negative mg/dL Negat tanya-T race URN.KETONES Negative mg/dL Neg ative-T race URN.LEUK.EST. Negative mg/dL N egative-T race URN.SPECIFIC GRAVITY 1.031 H 1.005-1.02 9 Oct 17, 2023 09:10 AM [facility] COVID-19 DIAGNOSTIC (FLU/RSV)(STL) Specimen Type: NASOPHARYNX [...] Oct 17, 2023 09:09 AM Reporting Lab: [facility] [address] [facility] [address] Performing Lab: [address] [place] [address] INFLUENZA A Negative Negative INFLUENZA B Negative Negative COVID-19 (STL-PB) Not Detected Not Detected RSV (Cepheid) NEGATIVE Negative Oct 17, 2023 09:10 AM [facility] TROPONIN I Specimen Type: PLASMA No comment entered. Ordering Provider: CRISTELA HAMPTON Report Released Date/Time: Oct 17, 2023 10:16 AM Reporting Lab: [address] [address] Performing Lab: [address] [address] TROPONIN I <0.010 ng/mL 0-0.033 Oct 17, 2023 09:10 AM [facility] BRAIN NATRIURETIC PEPTIDE Specimen Type: PLASMA No comment entered. Ordering Provider: CRISTELA HAMPTON Report Released Date/Time: Oct 17, 2023 10:16 AM Reporting Lab: [address] [address] Performing Lab: [address] [address] BRAIN NATRIURETIC PEPTIDE 19.4 pg/mL 0-100 Oct 17, 2023 09:10 AM [facility] COMPREHENSIVE METABOLIC PANEL Specimen Type: PLASMA Comment: K result may show a positive bias due to hemolysis. Specimen slightly hemolyzed. Ordering Provider: CRISTELA HAMPTON Report Released Date/Time: Oct 17, 2023 09:09 AM Reporting Lab: [address] [address] Performing Lab: [address] [address] CREATININE 0.89 mg/dL 0.7-1.3 UREA NITROGEN 11.5 [...] 89.4 >60 Oct 17, 2023 09:10 AM [facility] CBC Specimen Type: BLOOD No comment entered. Ordering Provider: CRISTELA HAMPTON Report Released Date/Time: Oct 17, 2023 09:09 AM Reporting Lab: [facility] [address] [facility] [address] Performing Lab: [facility] [address] [facility] [address] WBC 19.3 10*3/uL H 3.6-11.2 RBC 5.35 [...] 79 145/75 20 97 0 216.1 28 [facility] Social History: Smoking Status (Most current) and Tobacco Use (All prior to encounter date) This section includes the most current, and the historical, smoking and tobacco- related health factors from the [place] facility where the Encounter took place. Current Smoking Status This section includes the most current smoking, or tobacco-related health factor, from the [place] facility where the Encounter took place. Date/Time Current Smoking Status Comment Tristan bostony Oct 17, 2023 04:53 PM ORYX ADMIT TOBACCO SCREEN NO [facility] Tobacco Use History This section includes a history of the smoking, or tobacco-related health factors, that were collected on or before the date of the Encounter. The data comes from the [place] facility where the Encounter took place. Date/Time Smoking Status/Tobacco Use Comment Alejandro acmahesh Oct 17, 2023 03:00 PM ORYX ADMIT TOBACCO SCREEN NO [facility] Dec 31, 2021 03:07 PM ORYX ADMIT TOBACCO SCREEN NO [facility] Apr 06, 2017 11:33 PM QUIT TOBACCO >7 YEARS AGO [facility] Mar 21, 2017 04:29 AM QUIT TOBACCO >7 YEARS AGO [facility] Jan 20, 2014 09:56 AM QUIT TOBACCO >7 YEARS AGO [facility] Jan 02, 2013 01:23 PM QUIT TOBACCO >7 YEARS AGO [facility] May 25, 2010 01:35 PM LIFETIME NON-USER OF TOBACCO [facility] Aug 17, 2009 01:04 PM QUIT TOBACCO >12 M O & <7 YRS AGO [facility] Sep 17, 2008 01:34 PM QUIT TOBACCO >12 M O & <7 YRS AGO [facility] Sep 20, 2006 10:57 AM QUIT TOBACCO >12 M O & <7 YRS AGO [facility] Jun 05, 2006 10:49 AM CURRENT NON-TOBACC O USER-HX OF USE [facility] Jun 05, 2006 10:49 AM TOBACCO TERMINATION STAGE [facility] Jul 14, 2005 11:00 AM CURRENT NON-TOBACC O USER-HX OF USE [facility] Jul 14, 2005 11:00 AM TOBACCO TERMINATION STAGE [facility] Oct 23, 2004 04:56 PM CURRENT NON-TOBACC O USER-HX OF USE [facility] Oct 23, 2004 04:56 PM TOBACCO ACTION STAGE [facility] Apr 07, 2004 10:58 AM CURRENT NON-TOBACC O USER-HX OF USE [facility] Apr 07, 2004 10:58 AM TOBACCO MAINTENANCE STAGE [facility] December 18, 2002 11:17 AM CURRENT TOBACCO USER [facility] December 18, 2002 11:17 AM TOBACCO USE [facility] Apr 07, 2002 02:25 PM CURRENT NON-TOBACC O USER-RECENTLY QUIT quit 3 mo ago [facility] Apr 07, 2002 02:25 PM TOBACCO USE quit 3 mo ago [facility] Nov 19, 2001 10:50 AM CURRENT TOBACCO USER [facility] Jul 16, 2001 08:35 AM CURRENT TOBACCO USER [facility] Jun 18, 2001 08:31 AM CURRENT TOBACCO USER [facility] Jun 18, 2001 08:31 AM TOBACCO USE [facility] Advance Directives: All historical and current Section Date Range: From patient's date of to the date document was created. This section includes ALL of a patient's completed or amended [place] Advance and Rescinded Directives. The entries below indicate that a directive exists for the patient, but an actual copy is not included with this document. The data comes from all [facility]. Date Advance Directives Provider Source Feb 18, 2018 ADVANCE DIRECTIVE DISCUSSION EMMETT CAMILO [facility] Radiology Reports: +/- 30 days of [...] the Encounter. The data comes from all [facility] facilities. Date/Time Radiology Report Provider Source November 30, 2023 03:[address] ABDOMEN AND PEL VIS W/CONTRAST: MAURILIO DUQUE [id number] -[id number] M Exm Date: NOVEMBER 30, 2023@15:53 Req Phys: PALOMINOJENNIFER Zully Loc: [facility] 2ND SHIFT (R Img Loc: [facility] IMAG[facility] Service: Unknown [facility], [address] [place] [address] (Case [id number] COMPLETE) CT ABDOMEN AND PELVIS W/CONTRAST (CT Detailed) CPT:52475 Contrast Media : Non-ionic Iodinated Reason for Study: groin pain x 5 days and vomiting, hx of multiple hernia repairs Clinical History: Responsible Attending: Sundeep Attending Contact Number: [phone] Resident Contact Number: pt with multiple hernia [...] 30, 2023 Date Verified: NOVEMBER 30, 2023 [facility] [employer] E-Sig:/ES/MARYLOU JESSICA MD Report: Case: [id number] CT abdomen and pelvis. CT axial images [...] Interpreting Staff: MARYLOU JESSICA MD, STAFF RADIOLOGIST ([employer] [employer]) /MARYLOU [facility] November 30, 2023 03:[address] 3D RENDERING W INDEPENDENT WORKSTATION POSTPROCESSING: MAURILIO DUQUE [id number] -1950 M Exm Date: NOVEMBER 30, 2023@15:53 Req Phys: JENNIFER PALOMINO Loc: [facility]-EMERGENCY DEPT 2ND SHIFT (R Img Loc: [facility]CT IMAG[facility] Service: Unknown [address] [address] (Case [id number] COMPLETE) CT 3D RENDERING W INDEPENDENT WOR(CT Detailed) CPT:91010 Reason for Study: GROIN PAIN Clinical History: Responsible Attending: Sundeep Attending Contact Number: [phone] Resident Contact Number: pt with multiple hernia [...] 05, 2023 Date Verified: DECEMBER 05, 2023 [employer] E-Sig:/ES/MARYLOU JESSICA MD Report: Case: [id number] CT abdomen and pelvis[address] CT axial images [...] Interpreting Staff: MARYLOU JESSICA MD, STAFF RADIOLOGIST ([employer]) /MARYLOU [facility] Oct 17, 2023 11:01 AM CTA PE CHEST: MAURILIO DUQUE [id number] -1950 M Ex Date: OCT 17, 2023@11:01 Req Phys: CRISTELA HAMPTON Loc: [facility]ERGENCY DEPT 2ND SHIFT (R Img Loc: [facility] Service: Unknown (Case [id number] COMPLETE) CTA PE CHEST (CT Detailed) CPT:91262 Contrast Media : unspecified contrast media Reason for Study: 2 month hx sob, cough Clinical History: Responsible Attending: Natty Attending Contact Number: [phone] Resident Contact Number: Allergies listed in CPRS chart: LISINOPRIL, FENTANYL, COCONUTS Creatinine: CREATININE 0.89 mg/dL 10/17/2023 09:10 /eGFR: STL EGFR (within one year). CREATININE 0.89 mg/dL (10/17/23 09:10) Wt: 220.4 lb [99.97 kg] (09/27/2023 10:37) History of: Renal failure, chronic or acute renal disease: NO Report Status: Verified Date Reported: OCT 17, 2023 Date Verified: OCT 17, 2023 [employer] E-Sig:/ES/LISA PINZON Report: INDICATION: 2 month hx [...] arteries. Primary Interpreting Staff: LISA PINZON, RADIOLOGIST ([employer]) /LISA TURCIOS [facility] Oct 17, 2023 09:11 AM CHEST PORTABLE: MAURILIO DUQUE [id number] -1950 M Exm Date: OCT 17, 2023@09:11 Req Phys: CRISTELA HAMPTON Loc: -EMERGENCY DEPT 2ND SHIFT (R Img Loc: -MAIN RADIOLOGY SUITE Service: Unknown (Case [id number] COMPLETE) CHEST PORTABLE (RAD Detailed) CPT:52864 Proc Modifiers : Portable Reason for Study: SOB Clinical History: Report Status: Verified Date Reported: OCT 17, 2023 Date Verified: OCT 17, 2023 [employer] E-Sig:/ES/LISA PINZON Report: INDICATION: SOB COMPARISON:07/25/2023 TECHNIQUE: Chest portable Impression: Evaluation is limited by overlying monitoring leads and wires. There is persistent elevation of the left hemidiaphragm. Left greater than right bibasal atelectasis. No pneumothorax. No large pleural effusion. No focal consolidation. Normal heart size. Unchanged mediastinal contours. Primary Interpreting Staff: LIAS PINZON, RADIOLOGIST ([employer]) /LAVINIA PINZON,LISA [facility] Pathology Reports: +/- 30 days [...] the Encounter. The data comes from all [place] treatment facilities. Date/Time Pathology Report Provider Source Oct 19, 2023 01:53 PM LR MICROBIOLOGY RE PORT: Accession [UID]: [facility] [id number] [[id number]] Received: Oct 19, 2023@14:14 Collection sample: SPUTUM Collection date: Oct 19, 2023 13:53 Provider: ANABEL DORANTES Test(s) ordered: C&S RESPIRATORY CULTURES ([facility]-PB) completed: Oct 21, 2023 10:17 * BACTERIOLOGY FINAL REPORT => Oct 21, 2023 10:19 TECH CODE: [id number] GRAM STAIN: MODERATE WBC, MODERATE NORMAL RESPIRATORY [...] -=--=--=--=--=--=--=-- Performing Laboratory: Bacteriology Report Performed By: [facility] [address] [place] [address] CLIA# [id number] [address] [place] [address] [facility] Encounter Notes: All associated encounter notes This section contains the clinical notes associated to the Encounter. Date/Time Encounter Note(s) Provider Source Jan 02, 2024 06:20 PM ADDENDUM: LOCAL TITLE: Addendum STANDARD TITLE: ADDENDUM DATE OF NOTE: JAN 02, 2024@18:20:29 ENTRY DATE: JAN 02, 2024@18:20:30 AUTHOR: JENNIFER STALLINGS EXP COSIGNER: URGENCY: STATUS: COMPLETED CT chest w resolution of prior infiltrate. No new concerning findings. I can review images with when I see him at f/u. Jana--pls call to notify of above. TY /es/ JENNIFER STALLINGS MD, MPH Interventional Pulmonology Signed: 01/02/2024 18:22 Receipt Acknowledged By: 01/15/2024 09:17 /es/ SHARRON HINSON MSN,RN REGISTERED NURSE --- Original Document --- 11/14/23 PULMONARY OUTPATIENT FOLLOW UP STL: Pulmonary attending Patient seen and examined with pulmonary PA. Together we formulated an assessment and plan and I agree with the note entered. Briefly, 73 yo w several bouts of Covid most recently Fall of last year. He has been unable to recover to his baseline. PNA most recently. Steroids and inhalers not helping. Remote smoking hx Humidity strong cologne and smoke aggravate him Exam is normal A/P: 1. ZIMMERMAN CARP Keep Breztri for now and stop combivent--replace w albuterol. Ordered Expect that I will be able to step down to LAMA/LABA in future as may not need triple inhaler Repeat CT chest to ensure infiltrate is resolved. Ordered RTC w me. Ordered /es/ JENNIFER STALLINGS MD, MPH Interventional Pulmonology Signed: 11/14/2023 11:09 01/15/2024 ADDENDUM STATUS: UNSIGNED You may not VIEW this UNSIGNED Addendum. JENNIFER STALLINGS Dominic [facility] Nov 14, 2023 11:01 AM PULMONARY OUTPATIE NT NOTE: LOCAL TITLE: PULMONARY OUTPATIENT FOLLOW UP STL STANDARD TITLE: PULMONARY OUTPATIENT NOTE DATE OF NOTE: NOV 14, 2023@11:01 ENTRY DATE: NOV 14, 2023@11:01:38 AUTHOR: JENNIFER STALLINGS EXP COSIGNER: URGENCY: STATUS: COMPLETED PULMONARY OUTPATIENT FOLLOW UP STL Has ADDENDA Pulmonary attending Patient seen and examined with pulmonary PA. Together we formulated an assessment and plan and I agree with the note entered. Briefly, 73 yo w several bouts of Covid most recently Fall of last year. He has been unable to recover to his baseline. PNA most recently. Steroids and inhalers not helping. Remote smoking hx Humidity strong cologne and smoke aggravate him Exam is normal A/P: 1. ZIMMERMAN CARP Keep Breztri for now and stop combivent--replace w albuterol. Ordered Expect that I will be able to step down to LAMA/LABA in future as may not need triple inhaler Repeat CT chest to ensure infiltrate is resolved. Ordered RTC w me. Ordered /es/ JENNIFER STALLINGS MD, MPH Interventional Pulmonology Signed: 11/14/2023 11:09 01/02/2024 ADDENDUM STATUS: COMPLETED CT chest w resolution of prior infiltrate. No new concerning findings. I can review images with when I see him at f/u. [facility]--pls call to notify of above. TY /es/ JENNIFER STALLINGS MD, MPH Interventional Pulmonology Signed: 01/02/2024 18:22 Receipt Acknowledged By: 01/15/2024 09:17 /radha/ SHARRON HINSON MSN,RN REGISTERED NURSE 01/15/2024 ADDENDUM STATUS: COMPLETED Spoke w/ as per Dr. Stallings's request in reference to his CT. Vetrqan verbalizes understanding of information. /radha/ SHARRON HINSON MSN,RN REGISTERED NURSE Signed: 01/15/2024 09:18 JENNIFER STALLINGS [facility]
--- OUTSIDE RECORDS SUMMARY | 2024-11-02 11:55 | XMS_ITS | Encounter Summary ---
Author Name [facility] [facility] Address [address] [place] [address] Care Team Providers Care Assistant Track Coach Name Role Phone NATALIO BRIDGES Primary Care [...] PART B Oct 28, 2001 PART B [id number] Petra DUQUE PATIENT MEDICARE (WNR) MEDICARE (M) PART A Oct 28, 2001 PART A [id number] Petra DUQUE PATIENT MEDICARE (WNR) MEDICARE (M) PART A Oct 28, 2001 PART A [id number] Petra DUQUE PATIENT Selected Encounter This section includes the information on record at [place] for the Encounter. Date/Time Encounter Type Encounter Description Reason Provider Source November 30, 2023 12:58 PM EMERGENCY DEPT VISIT MOD [facility] EMERGENCY DEPT ICD-10-CM R11.2 Nausea with vomiting, unspecified JAMIL URBANO Ernie Encounter Template Text not used by [place] Assessments - Encounter Diagnoses This section includes the primary and secondary diagnoses documented for the Encounter. Date/Time Primary/Secondary Diagnosis Diagnosis Name Provider Source November 30, 2023 06:46 PM PRIMARY Nausea with vomiting, unspecified JENNIFER PALOMINO [facility] November 30, 2023 06:46 PM SECONDARY Right lower quadrant pain JENNIFER PALOMINO [facility] Plan of Treatment: Future Appointments (+ 6 months) and Future Tests (+/- 45 days) The Plan of Treatment section includes future care activities for the patient [facility] [place] [facility] This section includes future appointments [...] 11, 2023 08:00 AM AMBULATORY - MEDICINE [facility] December 11, 2023 09:00 AM AMBULATORY - MEDICINE [facility] December 11, 2023 09:15 AM AMBULATORY - SUR[facility]ERY [facility] December 13, 2023 09:30 AM AMBULATORY - SURGERY [facility] December 17, 2023 12:00 PM AMBULATORY - NONE [facility] Jan 01, 2024 10:00 AM AMBULATORY - NONE [facility] Jan 03, 2024 10:00 AM AMBULATORY - SURGERY [facility] Jan 14, 2024 08:30 AM AMBULATORY - MEDICINE [facility] Jan 14, 2024 09:30 AM AMBULATORY - MEDICINE [facility] Jan 23, 2024 11:30 AM AMBULATORY - REHAB MEDICIN E [facility] Feb 11, 2024 10:00 AM AMBULATORY - SURGERY [facility] Feb 22, 2024 10:30 AM AMBULATORY - MEDICINE [facility] Feb 27, 2024 08:15 AM AMBULATORY - MEDICINE [facility] Mar 26, 2024 11:00 AM AMBULATORY - NONE [facility] Mar 27, 2024 12:40 PM AMBULATORY - MEDICINE [facility] Apr 10, 2024 10:30 AM AMBULATORY - SURGERY . Joseline [facility] Apr 22, 2024 10:00 AM AMBULATORY - SUR[facility]ERY [facility] May 02, 2024 09:00 AM AMBULATORY - NONE [facility] May 06, 2024 03:30 PM AMBULATORY - MEDICINE [facility] May 19, 2024 11:00 AM AMBULATORY - MEDICINE [facility] Active, Pending, and Scheduled Orders [...] Order MRSA SURVL NARES DNA NARES WC [facility] Lab Results: +/- 30 days of [...] Range Comment November 30, 2023 03:50 PM [facility] BLOOD GAS PANEL ABG (L) Specimen Type: VENOUS BLOOD Comment: Test Performed by: [id number] Meter #: [id number] Ordering Provider: MARCELLO SEE Report Released Date/Time: November 30, 2023 03:50 PM Reporting Lab: [address] [address] Performing Lab: [address] [address] GEM PH 7.40 7.31-7.41 GEM PCO2 45 [...] TEMP 37.0 November 30, 2023 03:45 PM [facility] LACTIC ACID (STL-PB) Specimen Type: PLASMA No comment entered. Ordering Provider: JAMIL URBANO Report Released Date/Time: November 30, 2023 03:00 PM Reporting Lab: [address] [address] Performing Lab: [address] [address] LACTIC ACID (STL-PB) 1.3 mmol/L 0.5-2.0 November 30, 2023 03:39 PM [facility] COVID-19 DIAGNOSTIC (FLU/RSV)(STL) Specimen Type: NASOPHARYNX [...] information for final interpretation. Ordering Provider: JAMIL URBANO Report Released Date/Time: November 30, 2023 03:00 PM Reporting Lab: [address] [address] Performing Lab: [address] [address] INFLUENZA A Negative Negative INFLUENZA B Negative Negative COVID-19 (STL-PB) Not Detected Not Detected RSV (Cepheid) NEGATIVE Negative November 30, 2023 01:10 PM [facility] COMPREHENSIVE METABOLIC PANEL Specimen Type: PLASMA Comment: Aspartate Transaminase result may show positive bias due to hemolysis. K result canceled due to hemolysis. Specimen moderately hemolyzed. K cancelled due to moderate hemolysis. Called to Dominick Damon RN at 1445 on 11/30/2023 by KIANNA. Ordering Provider: MARCELLO SEE Report Released Date/Time: November 30, 2023 01:08 PM Reporting Lab: [address] [address] Performing Lab: [address] [address] CREATININE 0.99 mg/dL 0.7-1.3 UREA NITROGEN 13.7 [...] 79.4 >60 November 30, 2023 01:10 PM [facility] URINALYSIS W/ CX REFLEX (STL-PB) Specimen Type: URINE No comment entered. Ordering Provider: MARCELLO SEE Report Released Date/Time: November 30, 2023 01:08 PM Reporting Lab: [address] [address] Performing Lab: [address] [address] URINE COLOR Yellow Yellow U.BILIRUBIN Negative mg/dL [...] 1.005-1.02 9 November 30, 2023 01:10 PM [facility] CBC Specimen Type: BLOOD Comment: Platelet count verified by repeat analysis. No clot found in specimen. No platelet clumping observed in smear. Ordering Provider: MARCELLO SEE Report Released Date/Time: November 30, 2023 01:08 PM Reporting Lab: [facility] [address] Performing Lab: [address] [address] WBC 8.4 10*3/uL 3.6-11.2 RBC 6.08 10*6/uL [...] 10*3/uL 0.00-0.20 Nov 19, 2023 12:53 PM [facility] MICRAL/CREAT PROFILE (STL) Specimen Type: URINE No comment entered. Ordering Provider: NATALIO BRIDGES Report Released Date/Time: Oct 25, 2023 08:36 AM Reporting Lab: [address] [address] Performing Lab: [address] [address] URINE ALBUMIN (PB-STL) 29.1 mg/L uACR (STL) 9 mg/g 0-29 CREATININE URINE/OTHERS 314.1 mg/dL H 63-166 Nov 19, 2023 12:50 PM [facility] D-DIMER HS (MA-STL-PB) Specimen Type: PLASMA No comment entered. Ordering Provider: JEANNETTE PEÑA Report Released Date/Time: Nov 19, 2023 12:31 PM Reporting Lab: [address] [address] Performing Lab: [address] [address] D-DIMER HS (MA-STL-PB) 371 <500 Nov 19, 2023 12:50 PM [facility] TROPONIN I Specimen Type: PLASMA No comment entered. Ordering Provider: JEANNETTE PEÑA Report Released Date/Time: Nov 19, 2023 12:31 PM Reporting Lab: [facility] [address] [facility] [address] Performing Lab: [facility] [address] [facility] [address] TROPONIN I <0.010 ng/mL 0-0.033 Vital Signs: All taken on the encounter date This section contains inpatient and outpatient Vital Signs collected on the date of the Encounter. Date/Time Temperature Pulse Blood Pressure Respiratory Rate SP02 Pain Height Weight Body Mass Index Source November 30, 2023 05:00 PM 71 119/76 18 0 [facility] N November 30, 2023 01:02 PM 98 74 180/82 18 4 [facility] N Social History: Smoking Status (Most current) [...] 04:53 PM ORYX ADMIT TOBACCO SCREEN NO [facility] Tobacco Use History This section includes a history of the smoking, or tobacco-related health factors, that were collected on or before the date of the Encounter. The data comes from the [place] facility where the Encounter took place. Date/Time Smoking Status/Tobacco Use Comment Alejandro romero Oct 17, 2023 03:00 PM ORYX ADMIT TOBACCO SCREEN NO [facility] Dec 31, 2021 03:07 PM ORYX ADMIT TOBACCO SCREEN NO [facility] Apr 06, 2017 11:33 PM QUIT TOBACCO >7 YEARS AGO [facility] Mar 21, 2017 04:29 AM QUIT TOBACCO >7 YEARS AGO [facility] Jan 20, 2014 09:56 AM QUIT TOBACCO >7 YEARS AGO [facility] Jan 02, 2013 01:23 PM QUIT TOBACCO >7 YEARS AGO [facility] May 25, 2010 01:35 PM LIFETIME NON-USER OF TOBACCO [facility] Aug 17, 2009 01:04 PM QUIT TOBACCO >12 M O & <7 YRS AGO [facility] Sep 17, 2008 01:34 PM QUIT TOBACCO >12 M O & <7 YRS AGO [facility] Sep 20, 2006 10:57 AM QUIT TOBACCO >12 M O & <7 YRS AGO [facility] Jun 05, 2006 10:49 AM CURRENT NON-TOBACC O USER-HX OF USE [facility] Jun 05, 2006 10:49 AM TOBACCO TERMINATION STAGE [facility] Jul 14, 2005 11:00 AM CURRENT NON-TOBACC O USER-HX OF USE [facility] Jul 14, 2005 11:00 AM TOBACCO TERMINATION STAGE [facility] Oct 23, 2004 04:56 PM CURRENT NON-TOBACC O USER-HX OF USE [facility] Oct 23, 2004 04:56 PM TOBACCO ACTION STAGE [facility] Apr 07, 2004 10:58 AM CURRENT NON-TOBACC O USER-HX OF USE [facility] Apr 07, 2004 10:58 AM TOBACCO MAINTENANCE STAGE [facility] December 18, 2002 11:17 AM CURRENT TOBACCO USER [facility] December 18, 2002 11:17 AM TOBACCO USE [facility] Apr 07, 2002 02:25 PM CURRENT NON-TOBACC O USER-RECENTLY QUIT quit 3 mo ago [facility] Apr 07, 2002 02:25 PM TOBACCO USE quit 3 mo ago [facility] Nov 19, 2001 10:50 AM CURRENT TOBACCO USER [facility] Jul 16, 2001 08:35 AM CURRENT TOBACCO USER [facility] Jun 18, 2001 08:31 AM CURRENT TOBACCO USER [facility] Jun 18, 2001 08:31 AM TOBACCO USE [facility] Advance Directives: All historical and current Section Date Range: From patient's date of to the date document was created. This section includes ALL of a patient's completed or amended [place] Advance and Rescinded Directives. The entries below indicate that a directive exists for the patient, but an actual copy is not included with this document. The data comes from all [place] facilities. Date Advance Directives Provider Source Feb 18, 2018 ADVANCE DIRECTIVE DISCUSSION EMMETT CAMILO [facility] Radiology Reports: +/- 30 days of [...] ABDOMEN AND PEL VIS W/CONTRAST: MAURILIO DUQUE [id number] -[id number] M Exm Date: NOVEMBER 30, 2023@15:53 Req Phys: JENNIFER PALOMINO Loc: [facility]-EMERGENCY DEPT 2ND SHIFT (R Img Loc: [facility]-CT IMAGING [facility] Service: Unknown [facility], [address] [place] [address] (Case [id number] COMPLETE) CT ABDOMEN AND PELVIS W/CONTRAST (CT Detailed) CPT:58057 Contrast Media : Non-ionic Iodinated Reason for Study: groin pain x 5 days and vomiting, hx of multiple hernia repairs Clinical History: Responsible Attending: Sundeep Attending Contact Number: [phone] Resident Contact Number: pt with multiple hernia [...] 30, 2023 Date Verified: NOVEMBER 30, 2023 Activities Assistant E-Sig:/ES/MARYLOU JESSICA MD Report: Case: [id number] CT abdomen and pelvis[address] CT axial images [...] Interpreting Staff: MARYLOU JESSICA MD, STAFF RADIOLOGIST (Activities Assistant) /MARYLOU CABRERA [facility] November 30, 2023 03:[address] 3D RENDERING W INDEPENDENT WORKSTATION POSTPROCESSING: MAURILIO DUQUE [id number] -1950 M Ex Date: NOVEMBER 30, 2023@15:53 Req Phys: JENNIFER PALOMINO Loc: [facility]-EMERGENCY DEPT 2ND SHIFT (R Img Loc: [facility]CT IMAGING [facility] Service: Unknown [facility], [facility] [address] [place] [address] (Case [id number] COMPLETE) CT 3D RENDERING W INDEPENDENT WOR(CT Detailed) CPT:68658 Reason for Study: GROIN PAIN Clinical History: Responsible Attending: Sundeep Attending Contact Number: [phone] Resident Contact Number: pt with multiple hernia [...] 05, 2023 Date Verified: DECEMBER 05, 2023 Activities Assistant E-Sig:/ES/MARYLOU JESSICA MD Report: Case: [id number] abdomen [address] pelvis[address] axial images [...] Interpreting Staff: MARYLOU JESSICA MD, STAFF RADIOLOGIST (Activities Assistant) /MARYLOU CABRERA [facility] Encounter Notes: All associated encounter notes This section contains the clinical notes associated to the Encounter. Date/Time Encounter Note(s) Provider Source December 03, 2023 09:07 AM SURGERY ATTENDING NOTE: LOCAL TITLE: ATTENDING GENERAL SURGERY I NOTE ST STANDARD TITLE: SURGERY ATTENDING NOTE DATE OF NOTE: DECEMBER 03, 2023@09:07 ENTRY DATE: DECEMBER 03, 2023@09:07:16 AUTHOR: CHON MCMAHONIGNER: URGENCY: STATUS: COMPLETED Agree with resident assessment and plan The patient is a 73-year-old male s/p repair of a right inguinal hernia and repair of recurrence. The patient presented to the ED with groin pain. He underwent imaging which demonstrated no evidence of recurrent hernia. Physical exam: Stable Assessment: Status post right inguinal hernia repair We have told the patient that there is no surgical intervention which is required at this time. We have recommended he return to surgery clinic or to the ED if he experiences pain again. He knows to call with questions. /radha/ CHON MCMAHON Staff Physician - General Surgery Signed: 12/03/2023 09:08 [facility] November 30, 2023 06:35 PM EMERGENCY DEPT DISCHARGE NOTE: LOCAL TITLE: DISCHARGE INSTRUCTIONS EMERGENCY DEPT ST STANDARD TITLE: EMERGENCY DEPT DISCHARGE NOTE DATE OF NOTE: NOVEMBER 30, 2023@18:35:36 ENTRY DATE: NOVEMBER 30, 2023@18:35:36 AUTHOR: JAMIL URBANOIGNER: URGENCY: STATUS: COMPLETED DISCHARGE INSTRUCTIONS IMPORTANT: We examined and treated you today on an emergency basis only. This was not a substitute for, or an effort to provide, complete medical care. In most cases, you must let your healthcare provider check you again. Tell your healthcare provider about any new or lasting problems. We cannot recognize and treat all injuries or illnesses in one Emergency Department visit. You were treated today by Mary, . YOU ARE THE MOST IMPORTANT FACTOR IN YOUR RECOVERY. Follow the provided instructions carefully. CONTACT INFORMATION: -Hospital Information: [facility] - [address] [place] [address]. [phone] -CRISIS Line: If you are having thoughts of harming yourself or thoughts of suicide immediately call the [place] Crisis line at [phone] -Nurse Line: If you have any questions regarding your health or symptoms please contact the nurse line at [phone] -General Help: Any questions or concerns, call [place] Clinical Contact Center - [phone]. Ask to speak to a doctor Sunday thru Sunday 8a-4:30p VISIT NOTES: If you had special tests, such as EKG's or X-rays, we will review them again within 24 hours. We will call you if there are any new suggestions. FOLLOW APPOINTMENT INFORMATION: It is important that you keep your scheduled appointments. If you have questions, or if you need to Make, Change or Cancel an Appointment or relay a message to your Primary Care or Specialty Care Provider please call [phone]. If you are not already established with a [place] primary pet caretaker, an administrative request has been placed to offer that to you. You will recieve a notification for follow-up to be connected with a health care provider. Future Appointments 12/11/2023 at 8:00am [facility]CARDIO ECHO LAB1 12/11/2023 at 9:00am [facility]NUCLEAR MED CARDIOLOGY 12/11/2023 at 10:00am [facility]-CARDIOLOGY STRESS 12/12/2023 at 10:30am [facility]-CARDIO PULM REGISTRAR NURSES' REGISTRY CON 12/13/2023 at 9:30am [facility]PODIATRY GIL 12/17/2023 at 12:00pm [facility]DENTAL DMD2 01/01/2024 at 10:00am [facility]-CT FLASH AM 02/11/2024 at 10:00am [facility]-OPTOMETRY 9 02/22/2024 at 10:30am [facility]-CARDIOLOGY SALES ORDER CLERK 1 03/27/2024 at 12:40pm [facility]PULMONARY LOISELLE 05/19/2024 at 11:00am [facility]NOCO PACT 1 PCP 09/04/2024 at 1:30pm -[facility] MEDICATION INFORMATION: Take your medicines as prescribed. If you do not understand any of your medicines, please ask questions. If you think you may not be able to pick and shovel man your medicine, please let us know so we can look at other options. -Your medication list includes any medications that were recently prescribed but not filled by the Pharmacy (PENDING Medicines). -Included are any known ACTIVE Medicines. Please review this list to make sure it is accurate, if this list does not match the current medications you are taking please follow-up with your Primary Care Team to have your Medication List reviewed. Pending Medications ONDANSETRON 4MG ORAL DISINTEGRATING TAB \ Sig: TAKE ONE TABLET UNDER THE TONGUE EVERY EIGHT(8) HOURS NEEDED\Indication: FOR NAUSEA/VOMITING Active Medications ALBUTEROL 90MCG (CFC-F) 200D ORAL INHL INHALE 1 PUFF ORAL INHALATION FOUR TIMES A DAY NEEDED SHAKE WELL. RINSE MOUTHPIECE FREQUENTLY TO PREVENT CLOGGING. ALBUTEROL SO4 0.083% INHL 3ML INHALE 1 VIAL (2.5MG/3ML) BY NEBULIZATION EVERY 6 HOURS DIRECTED AMLODIPINE BESYLATE 10MG TAB TAKE ONE TABLET BY MOUTH ONCE A DAY FOR HEART/BLOOD PRESSURE ASPIRIN 81MG EC TAB TAKE TWO TABLETS BY MOUTH ONCE A DAY FOR HEART OR CIRCULATION. TAKE WITH FOOD. BREZTRI 160/9/4.8MCG/ACT 120D ORAL INHL INHALE 2 PUFFS INHALATION TWICE A DAY DIRECTED FOR COPD (CLEAN INHALER FOLLOWED BY 2 PRIMING PUFFS ONCE WEEKLY) CARBOXYMETHYLCELLULOSE NA 0.5% OPH SOLN INSTILL 1 DROP IN BOTH EYES FOUR TIMES A DAY NEEDED FOR DRY EYE(S) CHOLECALCIF 50MCG (D3-2,000UNIT) TAB TAKE TWO TABLETS BY MOUTH ONCE A DAY FOR VITAMIN D DEFICIENCY. CICLOPIROX 8% TOP SOLN APPLY LIGHTLY TO AFFECTED AREA(S) ONCE A DAY (THIN COAT TO THICK NAILS - FILE DOWN AFTER 1 WEEK) (EXTERNAL USE ONLY) DICLOFENAC NA 1% TOP GEL APPLY 2 GM TO AFFECTED AREA(S) FOUR TIMES A DAY FOR OSTEOARTHRITIS DO NOT EXCEED MORE THAN 16 GRAMS DAILY TO ANY LOWER EXTREMITY JOINT. NOT MORE THAN 8 GRAMS DAILY TO ANY UPPER EXTREMITY JOINT. MAX 32GM/DAY OVER ALL JOINTS. (MEASURE DOSE WITH RULER ATTACHED INSIDE BOX) HYDROCODONE 10/ACETAMINOPHEN 325MG TAB TAKE 1 TABLET BY MOUTH EVERY 6 HOURS NEEDED FOR PAIN CAUTION: DO NOT EXCEED 4000MG PER DAY ACETAMINOPHEN (APAP) FROM ALL MEDS. DO NOT TAKE WITH OXYCODONE METFORMIN HCL 1000MG TAB TAKE ONE TABLET BY MOUTH TWICE A DAY WITH MEALS FOR BLOOD SUGAR CONTROL. AVOID ALCOHOL. DISCONTINUE BEFORE GETTING XRAY DYE. PANTOPRAZOLE NA 40MG EC TAB TAKE ONE TABLET BY MOUTH TWO TIMES A DAY BEFORE MEALS TO LOWER STOMACH ACID - TAKE 30 MINUTES BEFORE MEAL(S) PREGABALIN 200MG ORAL CAP TAKE ONE CAPSULE BY MOUTH THREE TIMES A DAY FOR NERVE PAIN PSYLLIUM ORAL PWD MIX AND DRINK 1 TEASPOONFUL BY MOUTH ONCE A DAY FOR FIBER SUPPLEMENTATION MIX IN GLASS OF WATER/JUICE. FLAVOR SUBSTITUTIONS MAY/WILL OCCUR AND SPECIFIC VARIETIES WILL NOT BE PROVIDED. TOPIRAMATE 50MG TAB TAKE ONE TABLET BY MOUTH TWICE A DAY FOR SEIZURES OR MIGRAINE PROPHYLAXIS VALSARTAN 320MG TAB TAKE ONE TABLET BY MOUTH ONCE A DAY TO LOWER BLOOD PRESSURE Medications Medications in the last 90 days AZITHROMYCIN 250MG TAB TAKE TWO TABLETS BY MOUTH ONCE A DAY FOR 1 DAY, THEN TAKE ONE TABLET ONCE A DAY FOR 4 DAYS FOR BRONCHITIS (UNTIL GONE) BENZONATATE 100MG CAP TAKE ONE CAPSULE BY MOUTH THREE TIMES A DAY NEEDED FOR COUGH POLYETHYLENE GLYCOL 3350 ORAL PWDR MIX AND DRINK 1 CAPFUL BY MOUTH ONCE A DAY FOR CONSTIPATION (MEASURE WITH CAP AND MIX IN 8 OZ OF WATER) PREDNISONE 50MG TAB TAKE ONE TABLET BY MOUTH EVERY MORNING FOR BRONCHITIS TAKE WITH FOOD OR MILK. This Information Is About Your Illness and Diagnosis INGUINAL AND FEMORAL HERNIA A hernia is a weakness, tear, or opening in the protective layer of tissue that covers the entire abdomen, from the groin to the chest. This protective tissue is made of muscle and connective tissue. It helps hold organs, fat, and other tissues in place. When hernias occur in the groin, they are called inguinal or femoral hernias. Inguinal hernias are a bit higher in the groin than femoral hernias. Both of these types of hernias can form a sac that holds a loop of intestine or fatty tissue that normally sits inside the protective muscle tissue. In women, the sac can also hold a section of the female reproductive organs. If an organ or fatty tissue gets trapped inside this sac, its blood supply can be reduced or cut off. This requires immediate surgery. A hernia is caused by a combination a weakness in the protective muscle layer as well as increased pressure in the lower abdomen or groin. Sometimes these weaknesses are present at . Obesity, poor nutrition, and smoking can cause weaker muscles and connective tissue that can lead to a hernia. Increased abdominal wall pressure can be caused by: -straining, such as lifting heavy weights or other objects -hard, persistent coughing or sneezing -pushing, as in labor when delivering a baby -constipation or straining to have a bowel movement Treatment for inguinal and femoral hernias eventually includes surgery. Surgery is done to push the bulging tissue back into the groin, possibly place a mesh patch to reinforce the weak muscle/connective tissue layer, and suture the incision closed. Please follow these instructions: -Avoid straining, lifting or coughing hard. These activities can cause extra pressure inside your abdomen. -Place light pressure with your hand over the hernia; if you have to cough, sneeze, or strain. -If the hernia bulges, gently push it back into place. (Pushing it back into place is called reducing the hernia.) Contact your health care provider immediately if you: -develop severe pain. -have nausea and vomiting, and have not passed any bowel movements. Contact your health care provider as soon as possible if you have any new or bothersome symptoms. Contact your health care provider as soon as possible if you have: -Concerns for an emergency medical condition -Uncontrolled pain or other life-threatening symptoms -Any worries or concerns -Other: END OF INSTRUCTIONS /es/ JAMIL URBANO MD Staff Physician MOD Signed: 11/30/2023 18:35 JAMIL URBANO [facility] November 30, 2023 04:24 PM RESPIRATORY THERAPY NOTE: LOCAL TITLE: RESPIRATORY THERAPY STL STANDARD TITLE: RESPIRATORY THERAPY NOTE DATE OF NOTE: NOVEMBER 30, 2023@16:24 ENTRY DATE: NOVEMBER 30, 2023@16:24:13 AUTHOR: SCOTT PATEL EXP COSIGNER: URGENCY: STATUS: COMPLETED Time of test performance: Sep@15:20 Sample collected by: Provider/Nurse: Sample type: Venous Specimen delivered to RT by: RT picked up /radha/ SCOTT PATEL Respiratory Therapist Signed: 11/30/2023 16:25 STEPHANIE PATEL [facility] November 30, 2023 04:05 PM RADIOLOGY PREPROCEDURE NOTE: LOCAL TITLE: RADIOLOGY CONTRAST ADMINISTRATION STANDARD TITLE: RADIOLOGY PREPROCEDURE NOTE DATE OF NOTE: NOVEMBER 30, 2023@16:05 ENTRY DATE: NOVEMBER 30, 2023@16:05:41 AUTHOR: HANNA REYNOSO EXP COSIGNER: URGENCY: STATUS: COMPLETED CT and General Radiology Contrast Questionnaire PATIENT NAME: MAURILIO DUQUE SSN: [id number] DATE: November EXAM: CTA PE Referring Physician: GEORGETTE TO BE COMPLETED PRIOR TO CONTRAST ADMINISTRATION: 1. Has the patient been instructed about the procedure? Yes 2. Is there a history of food or drug allergies? No 3. Is there history of complication with IV contrast? No 4. Is EFGR less than 30? No eGFR: STL EGFR (within one year). CREATININE 0.99 mg/dL (11/30/23 13:10) CREATININE 0.99 mg/dL 11/30/2023 13:10 EGFR (CKD-EPI 2020) 79.4 11/30/2023 13:10 5. Is EFGR result for inpatient within 24 hrs? Yes 6. Is EFGR result for outpatient with history of renal insufficiency within 7 days or for outpatient with history of normal renal function within 30 days? NA 7. Is the patient's Medical Reconciliation list correct?Yes 8. Is the patient on metformin? Yes 9. Has the patient violated NPO requirements? No 10. Does the patient have a history of multiple myeloma? No 11. Does the patient have sickle cell anemia? No 12. Is the patient a breast-feeding female? NA 13. Is there a chance the patient could be ? NA 14. Does the patient have only one kidney? No 15. The patient has had no iodinated contrast in the past 72 hours? Yes 16. The exception for Diagnostic Imaging Service policy was NONE and this was discussed and Approve by Dr: JASKARAN for contrast administration. 17. If patient meets DIS policy criteria for high risk for contrast reaction or toxicity, Informed Consent has been obtained by: 18. The information was reviewed and meets Diagnostic Imaging Policy to administer contrast. Yes DIS Policy: 1,5,6,7,16,17,18 =Y or NA // 2,3,4,8,9,10,11,12,13,14,15 = N Name of Contrast: [id number] Lot#: [id number] Dosage: 100ML Injection Site: RT AC 20G /es/ HANNA REYNOSO SELF SEALING FUEL TANK BUILDER Signed: 11/30/2023 16:08 HANNA REYNOSO [facility] November 30, 2023 03:26 PM PHYSICIAN EMERGENCY DEPT NOTE: LOCAL TITLE: EMERGENCY DEPARTMENT STL STANDARD TITLE: PHYSICIAN EMERGENCY DEPT NOTE DATE OF NOTE: NOVEMBER 30, 2023@15:26 ENTRY DATE: NOVEMBER 30, 2023@15:26:44 AUTHOR: JENNIFER PALOMINO EXP COSIGNER: JAMIL URBANO URGENCY: STATUS: COMPLETED EMERGENCY DEPARTMENT STL Has ADDENDA TRIAGE CHIEF COMPLAINT: Groin pain, nausea, and vomiting HPI: Patient is a 73M w relevent PMH of DM2, COPD, HTN, extensive hernia surgery presents with 5 days groin pain, nausea, vomiting, chills. Pt is s/p left orchiectomy and pertinent surgical history of open bilateral inguinal hernia repair with Mesh in 11/2022 followed by right sided recurrence s/p open recurrent right inguinal hernia repair with overlying mesh in 03/17/2023 who is now s/p right groin exploration with cyst excision on 09/10/[address] De La Cruz. He denies KEVIN, CP, SOB, difficulty urinating, hematuria, penile discharge, scrotal pain/swelling. REVIEW OF SYSTEMS: See HPI for further details. All 10 systems reviewed and otherwise negative unless otherwise detailed herein. PAST MEDICAL HISTORY: 1) Benign essential hypertension (SNOMED CT 6770383) 2) Left trigeminal neuralgia (SNOMED CT 18602812652548670) 3) GERD - Gastro-esophageal reflux disease (SNOMED CT 089057757) 4) Chronic obstructive lung disease (SNOMED CT 86942507) 5) LBP - Low back pain (SNOMED CT 427920962) 6) Knee pain (SNOMED CT 60650195) 7) Chest pain 8) Hip joint pain 9) Candidiasis of the esophagus 10) Parotitis 11) Cervicalgia 12) Long-term current use of opiate analgesic drug 13) Diabetes Mellitus Type 2 (SCT 94894334) 14) Inguinal hernia 15) Inguinal hernia 16) [...] A ACTIVE DAY TO LOWER BLOOD PRESSURE 1) ONDANSETRON INJ,SOLN IVP ONE-TIME 4MG/2ML 2) MORPHINE SULFATE (UD) INJ IVP ONE-TIME 2MG/1ML 3) SODIUM CHLORIDE 0.9% INJ,SOLN IV . 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 Any medication discrepancies have been resolved. Patient will be provided with an updated list of his/her medication(s). SURGICAL HISTORY: s/p left orchiectomy and pertinent surgical history of open bilateral inguinal hernia repair with Mesh in 11/2022 followed by right sided recurrence s/p open recurrent right inguinal hernia repair with overlying mesh in 03/17/2023 who is now s/p right groin exploration with cyst excision on 09/10/[address] De La Cruz FAMILY HISTORY: not pertinent SOCIAL HISTORY: Social History Main Topics: Smoking status: 12/18/2002 Current Tobacco User Alcohol Use: not indorsed Negative mg/dL (04/18/23 10:24) Illicit Drug Use: not indorsed Sexual Activity: Other Topics of Concern: Child bearing age: N/A LMP: N/A possible: N/A ALLERGIES: Review of patient's allergies indicates: LISINOPRIL, FENTANYL, COCONUTS PHYSICAL EXAM: VITAL SIGNS: 180/82 (11/30/2023 13:02)74 (11/30/2023 13:02)97% (11/19/2023 11:49)98 F [36.7 C] (11/30/2023 13:02)18 (11/30/2023 13:02)The OBJECT WEIGHT LAST 3 was NOT found...Contact IRM. MAThe OBJECT was NOT found...Contact IRM.PAIN ASSESSMENTThe OBJECT was NOT found...Contact IRM. Measurement DT PAIN 11/30/2023 13:02 4 CONSTITUTIONAL: Mild distress, Non-toxic appearance HENT: airway patent EYES: Conj pink, sclera clear NECK: Normal range of motion, No tenderness, Supple, No stridor, No LAD. CARDIOVASCULAR: Normal heart rate, Normal rhythm PULMONARY/CHEST: CTA bilaterally, thorax stable without tenderness ABDOMEN: Bowel sounds normal, Soft w some subjective guarding in RLQ, BACK: No tenderness, No CVA tenderness : tenderness in the right inguinal and suprapubic area, no discreet mass or hernia noted, no overlying skin change, no scrotal swelling, one testicle palpated in the scrotum, nontender, no epidydimal tenderness. RECTAL: EXTREMITIES: Normal range of motion, Intact distal pulses, No edema, No tenderness NEUROLOGIC: Alert & oriented/reactive, Normal motor function, Normal gait, no ataxia, No focal deficits appreciated on cursory screening exam SKIN: Warm, Dry, No erythema, No rash LABS: WBC 8.4 10*3/uL 3.6 - 11.2 RBC 6.08 H 10*6/uL 4.10 - 5.70 HGB 16.8 g/dL 13.1 - 16.8 HCT 51.7 H % 38.2 - 48.4 MCV 85.0 fL 80.0 - 100.0 MCH 27.6 pg 27.0 - 34.0 MCHC 32.5 L g/dL 33.0 - 36.0 RDW 13.9 % 11.8 - 15.1 PLT 234 10*3/uL 150 - 400 NEUTROPHILS, AUTO % 67 % LYMPHOCYTES, AUTO % 23 % MONOCYTES, AUTO % 8 % EOSINOPHILS, AUTO % 1 % BASOPHILS, AUTO % 1 % NEUTROPHILS, ABSOLUTE 5.69 10*3/uL 2.10 - 8.00 LYMPHOCYTES, ABSOLUTE 1.96 10*3/uL 0.77 - 4.50 MONOCYTES, ABSOLUTE 0.63 10*3/uL 0.19 - 0.80 EOSINOPHILS, ABSOLUTE 0.07 10*3/uL 0.00 - 0.60 BASOPHILS, ABSOLUTE 0.04 10*3/uL 0.00 - 0.20 NRBC% 0 #/100 (WBCs) IMMATURE PLT FRACTION 5.2 % 1.0 - 7.0 SODIUM 136 mEq/L 136 - 145 POTASSIUM canc mEq/L 3.5 - 5 CHLORIDE 104 mEq/L 98 - 107 UREA NITROGEN 13.7 mg/dL 9.0 - 25.0 CREATININE 0.99 mg/dL 0.7 - 1.3 CALCIUM 10.0 mg/dL 8.4 - 10.4 PROTEIN 7.5 g/dL 6 - 8.6 ALBUMIN 4.2 g/dL 3.4 - 5 ALKALINE PHOSPHATASE 91 U/L 40 - 150 ALT/SGPT 31 U/L 8 - 40 AST/SGOT 29 U/L 5 - 34 TOTAL BILIRUBIN 0.6 mg/dL 0.2 - 1.2 CARBON DIOXIDE 19 L mEq/L 22 - 31 GLUCOSE 102 H mg/dL 72 - 99 EGFR (CKD-EPI 2020) 79.4 Ref: >=60 URINE COLOR Yellow Ref: Yellow APPEARANCE Clear Ref: Clear U.PH 5.5 5.0 - 8.0 U.BILIRUBIN Negative mg/dL Ref: Negative U.NITRITE Negative mg/dL Ref: Negative URINE RBC/HPF 1 /HPF 0 - 5 URINE WBC/HPF <1 /HPF 0 - 5 SQUAMOUS EPITH. <1 /HPF 0 - 5 MUCUS RARE /LPF Ref: Negative-Rare HYALINE CASTS 1 /LPF 0 - 5 URN.GLUCOSE Normal mg/dL Ref: Negative URN.PROTEIN 30 H mg/dL Negative - 20 URN.UROBILINOGEN Normal mg/dL Ref: Normal URN.BLOOD Negative mg/dL Ref: Negative-Trace URN.KETONES Negative mg/dL Ref: Negative-Trace URN.LEUK.EST. Negative mg/dL Ref: Negative-Trace URN.SPECIFIC GRAVITY 1.034 H 1.005 - 1.029 GEM PH 7.40 UNITS 7.31 - 7.41 GEM PCO2 45 mmHg 41.0 - 51.0 GEM PO2 43 mmHg 25.0 - 48.0 GEM SODIUM 133 L mmol/L 136.0 - 145.0 GEM POTASSIUM 4.0 mmol/L 3.5 - 5.0 GEM CHLORIDE 100 mmol/L 98.0 - 107.0 GEM IONIZED CA 1.26 mmol/L 1.09 - 1.3 GEM HCT 48 % 38.0 - 48.0 GEM THB 15.8 g/dL 13.1 - 16.8 GEM 02HB 73.9 % 60.0 - 85.0 GEM COHB 1.8 % 0.5 - 2.0 GEM METHB 0.5 % 0.0 - 1.9 GEM GLUCOSE 102 H mg/dL 72.0 - 99.0 GEM LACTATE 1.3 mmol/L 0.9 - 2.0 GEM SO2 75.7 % 68.0 - 77.0 GEM CHCO3 27.9 H mmol/L 20.0 - 26.0 GEM BASE EXCESS 2.4 mmol/L -2.5 - 2.5 GEM FIO2 21.0 % GEM PT. TEMP 37.0 ??C RADIOLOGY: ED COURSE & MEDICAL DECISION MAKING: Nursing notes, medications, vital signs, allergies and pertinent labs & imaging studies reviewed (see chart for details) with lab results reviewed with patient and family/caregivers at bedside and radiology results reviewed with patient and any family/caregivers at bedside. Stable, alert, nontoxic appearing, in mild distress. Pt had lab orders placed. 1545 - Pt evaluated, examined with Dr Urbano. Requested pt be moved to a room and IV access obtained by US. Zofran, fluids, and Morphine ordered for pt nausea and pain. CT abd/pelvis w contrast ordered to evaluate for infection/obstruction. VBG added to evaluate for acidosis. 1615 - WBC count normal, ph 7.40, urinalysis unconcerning. 1620 - Paging surgery 2 to make them aware of pt. 1628 - Surgery 2 will come see the pt 1630 - Resident signed out to Attending Dr Urbano Discussed with radiology regarding test interpretation: I performed an independent interpretation of: ___EKG ___rhythm strip ___plain x-ray ___ultrasound ___CT scan ___MRI ___other Patient's care impacted by: _x__Diabetes __x_Hypertension ___Cancer ___other: Patient's care is significantly limited by social determinants of health including, but not limited to: ___inadequate housing ___low income ___alcoholism and drug addiction in family ___problems related to primary support group ___unemployment ___problems with employment ___language barrier ___lack of transportation ___psychiatric disease ___other social determinants of health: External records reviewed: _x__Inpatient records ___office records _x__outpatient records ___prior outpatient labs ___prior outpatient radiology ___primary care record ___outside ED record ___PMD referral ___outside ER ___urgent care referral ___other: Management of the patient was discussed with: ___Hospitalist ___consultant ___behavioral health provider ___primary care provider ___other: The following testing was considered but ultimately was not performed after discussion with the patient/family: I considered prescription management with the following but ultimately did not prescribe: ___pain medication ___antiviral ___antibiotic ___other: I considered admission/ observation but decided upon discharge due to: ACCESS DATABASE DEVELOPER SERVICE/TIME: MEDICATIONS GIVEN IN ED: [ ] YES [ ] NO Critical care time minutes, exclusive of other separately billable procedures. Critical decision- making includes but not limited to . The patient was reassessed times. D/W consultants and any family/caregivers directly pertinent to patient care. DIFFERENTIAL DIAGNOSES CONSIDERED: Recurrent hernia Obstruction testicular torsion- unlikely given clinical exam abscess appendycitis epididymitis orchitis UTI Kidney stone DECISION to ADMIT / DISCHARGE TIME: SMOKING CESSATION RECOMMENDATION: The patient was strongly advised to consider stopping smoking, advised of risks of smoking and benefits of stopping; and was recommended for referral/abatement options. ABNORMAL BLOOD PRESSURE: The patient was advised vis-a-vis observation of abnormal blood pressure, risk and complications of same, need for possible treatment or enhanced treatment and advised to follow-up with their PCP for a 5-day blood pressure screen and determination of a diagnosis and possible need for treatment or enhanced treatment of previously established hypertension. DISPOSITION CONDITION:[ ] Improved [ ] Unchanged [ ] Deteriorated CLINICAL IMPRESSION: 1 - Groin and RLQ pain 2 - Nausea with vomiting 3 - DISCHARGE INSTRUCTIONS AND PATIENT-DIRECTED FOLLOW-UP RECOMMENDATIONS: DIET: regular ACTIVITY: ad hermilo NEW MEDS: MEDICATION RECONCILIATION: CONTINUE ALL PRESCRIBED MEDICATIONS DIRECTED EXCEPT: FOLLOW-UP WITH PRIMARY RECREATION PROGRAMMER/SPECIALIST: routine in 1-2 weeks if not improving, sooner if worse RETURN TO EMERGENCY: if any worries or concerns ADDITIONAL SIGNATURE PCP: [ ] YES [ ] NO [ ] not listed Active Outpatient Medications (including Supplies): Active Outpatient [...] A ACTIVE DAY TO LOWER BLOOD PRESSURE /radha/ JENNIFER PALOMINO VENEER GLUER Signed: 11/30/2023 16:32 /es/ JAMIL URBANO MD Staff Physician MOD Cosigned: 11/30/2023 21:06 Receipt Acknowledged By: 12/05/2023 14:51 /es/ NATALIO BRIDGES MD STAFF PHYSICIAN 11/30/2023 ADDENDUM STATUS: COMPLETED I have personally seen and examined this patient. I have fully participated in the care of this patient and have reviewed and agree with all pertinent clinical information, including the nursing notes, medical history, vital signs, physical examination, labs, radiographic studies, the clinical management plan and disposition. I have also reviewed and agree with nursing notes, medications, allergies and past medical history including the review of systems sections for this patient. I was physically present for funes elements of any invasive procedures performed. CT AP Impression: No acute process in the abdomen and pelvis. Patient seen by the general surgery service and determined to not have any need for any acute intervention or treatment. Patient pain and nausea significantly improved in the emergency department and he is asking to be discharged. Patient discharged home. 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 Any medication discrepancies have been resolved. Patient will be provided with an updated list of his/her medication(s). Active Outpatient Medications (including Supplies): Active Outpatient [...] A ACTIVE DAY TO LOWER BLOOD PRESSURE /es/ JAMIL URBANO MD Staff Physician MOD Signed: 11/30/2023 21:07 JENNIFER PALOMINO [facility] November 30, 2023 01:01 PM EMERGENCY DEPT TRIAGE NOTE: LOCAL TITLE: EMERGENCY DEPARTMENT TRIAGE NOTE STANDARD TITLE: EMERGENCY DEPT TRIAGE NOTE DATE OF NOTE: NOVEMBER 30, 2023@13:01 ENTRY DATE: NOVEMBER 30, 2023@13:01:09 AUTHOR: NAHEED MCCAULEY COSIGNER: URGENCY: STATUS: COMPLETED EMERGENCY DEPARTMENT TRIAGE NOTE Has ADDENDA Emergency Department/Urgent Care Center Triage Patient age:73 Sex: MALE On arrival patient was: AMBULATORY Patient phone number: Allergies: LISINOPRIL, FENTANYL, COCONUTS Subjective/Chief Complaint: R yuli pain, nausea Objective: Pt to ED with the above complaint ongoing x 5 days. reported nausea without emesis, denied fever, diarrhea or urinary difficulties. appeared awake and alert. VSS. no distress noted. The patient is not a fall risk. BP: P: R: WT: T: HT: Temperature 98 F (36.7 C) Pulse 74 Respirations 18 Blood Pressure 180/82 Pain scale recorded: 4 Pulse Oximetry 99 Room Air Sepsis Screening Evaluation Emergency Severity Index (BLANCO) level Level 3 Current Medications: Active Outpatient Medications (including Supplies): Active Outpatient [...] A ACTIVE DAY TO LOWER BLOOD PRESSURE Current Problems: 1) Benign essential hypertension (SNOMED CT 6239081) 2) Left trigeminal neuralgia (SNOMED CT 97675638057695509) 3) GERD - Gastro-esophageal reflux disease (SNOMED CT 783957422) 4) Chronic obstructive lung disease (SNOMED CT 63754990) 5) LBP - Low back pain (SNOMED CT 674517327) 6) Knee pain (SNOMED CT 39237475) 7) Chest pain 8) Hip joint pain 9) Candidiasis of the esophagus 10) Parotitis 11) Cervicalgia 12) Long-term current use of opiate analgesic drug 13) Diabetes Mellitus Type 2 ([facility] 31213217) 14) Inguinal hernia 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 21) Exposure to potentially hazardous substance Suicide Screen: [place] Suicide Severity Rating Scale (C-SSRS) screener 1. Over the past month, have you [...] required due to responses to other questions. /radha/ NAHEED MCCAULEY RN BSN REGISTERED NURSE Signed: 11/30/2023 13:02 11/30/2023 ADDENDUM STATUS: COMPLETED 1515 Assumed care of patient from the triage nurse. patient ambulatory to exam room 1011 for c/o rt groin pain. pt givendress into. patient placed on the monitor, blood pressure cuff, and pulse ox. pt covered with blankets. call light placed at bedside. pt seen by provider in triage procedure room. 1540 18 gauge IV started in RAC times 1 attempt via US Good blood return. blood specimens obtained and IV flushed with 10ml of saline. no signs of infiltration noted. IV secured to site and specimens sent to lab via transport personnel. [address] via stretcher. [address] 1623 300 ml of clear yellow urine emptied from urinal. 1645 MD from surgery here to evaluate patient. 1700 Blood Pressure: 119/76 Pulse: 71 Respiratory Rate: 18 Pain: 0 Pulse Oximetry: 100% 1730 resting in bed, no distress noted. 1815 pt inquiring about discharging home. 1845 Intact IV catheter removed, pressure held to site and a dressing applied. verbal and written discharge instructions given. pt states understanding. gait to exit is steady. no distress noted upon disposition from the ED. pt instructed to go to pharmacy for medicine pick and shovel man. /radha/ APOLINAR CAMPAN RN REGISTERED NURSE Signed: 11/30/2023 18:48 JACQUELYN MCCAULEY [facility]
--- OUTSIDE RECORDS SUMMARY | 2024-11-02 11:56 | XMS_ITS | Referral Summary ---
Author Organization [facility] Address [address] [place] [address] Care Team Providers Care Manager Of Internal Audit Name Role Phone Juan Arzola MD Primary Care Provider [phone] Allergies Active Allergy Reactions Criticality Noted Date [...] (05/16/2022): Added automatically from request for surgery [id number] Other male erectile dysfunction 07/14/2020 Trigeminal neuralgia 10/02/2012 Cervico-occipital neuralgia 10/02/2012 Chronic obstructive pulmonary disease 10/02/2012 Hypertension 10/02/2012 Resolved Problems Problem Noted Date Diagnosed Date Resolved Date Hydrocele 06/09/2020 07/14/2020 Encysted hydrocele 06/09/2020 0 Overview (06/09/2020): Added automatically from request for surgery [id number] Immunizations Immunization Administration Dates Next Due Influenza, [...] on file Legal Sex Male 12:08 PM DEATH CLAIM EXAMINER Gender Identity Not on file Sexual Orientation Not on file Last Filed Vital Signs Vital Sign Reading Time Taken Comments Blood Pressure 142/75 06/08/2022 3:05 PM DEATH CLAIM EXAMINER Pulse 66 06/08/2022 3:05 PM DEATH CLAIM EXAMINER Temperature 36.6 C (97.9 F) 06/08/2022 3:05 PM DEATH CLAIM EXAMINER Respiratory Rate 14 06/08/2022 3:05 PM DEATH CLAIM EXAMINER Oxygen Saturation 96% 06/08/2022 3:05 PM DEATH CLAIM EXAMINER Inhaled Oxygen Concentration - - Weight 96.4 kg (212 lb 9.6 oz) 06/08/2022 8:53 A M DEATH CLAIM EXAMINER Height 188 cm (6' 2 ) 06/08/2022 8:53 AM DEATH CLAIM EXAMINER Body Mass Index 27.3 06/08/2022 8:53 AM DEATH CLAIM EXAMINER Plan of Treatment Not on file Procedures [...] Most Recently Relevant to Health Maintenance Insurance [place] [employer] COMMUNITY CARE Member Subscriber Plan / Payer ( fective 1998-Present) Name:Alek Evans Sr. Relation to Subscriber:Self Name:Alek Evans Sr. Payer ID:[id number] Group ID:Not on file Type:[employer] Address: [place] [id number] Care Teams Manager Of Internal Audit Relationship Specialty Start Date End Date Juan Arzola MD [address] [place] [address] PCP - General Internal Medicine 10/1/22
--- OUTSIDE RECORDS SUMMARY | 2024-11-02 11:56 | XMS_ITS | Encounter Summary ---
Author Name [facility] Address [address] [place] [address] Care Team Providers Care Hr Associate Name Role Phone NATALIO BRIDGES Primary Care [...] PART B Oct 28, 2001 PART B [id number] ePtra DUQUE PATIENT MEDICARE (WNR) MEDICARE (M) PART A Oct 28, 2001 PART A [id number] [phone] Petra DUQUE PATIENT MEDICARE (WNR) MEDICARE (M) PART A Oct 28, 2001 PART A [id number] [phone] Petra DUQUE PATIENT Selected Encounter This section includes the information on record at [place] for the Encounter. Date/Time Encounter Type Encounter Description Reason Provider Source Apr 10, 2024 10:30 AM OFFICE O/P EST MOD 30 MIN GENERAL SURGERY ICD-10-CM K40.90 Unil inguinal hernia, w/o obst or gangr, not spcf as recur STEVEN WASHBURN III IHE Encounter Template Text not used by [place] Assessments - Encounter Diagnoses This section includes the primary and secondary diagnoses documented for the Encounter. Date/Time Primary/Secondary Diagnosis Diagnosis Name Provider Source Apr 10, 2024 05:23 PM PRIMARY Unil inguinal hernia, w/o obst or gangr, not spcf as recVITO Ray [facility] Plan of Treatment: Future Appointments (+ 6 months) and Future Tests (+/- 45 days) The Plan of Treatment section includes future care activities for the [facility] This section includes future appointments and future orders which are active, pending or scheduled. Future Appointments This section includes appointments that were scheduled to occur 6 months from the date of the Encounter, up to a maximum of 20 appointments. The data comes from all [place] treatment facilities. Appointment Date/Time Appointment Type Appointme nt Facility Name Apr 22, 2024 10:00 AM AMBULATORY - SURGERY . [facility] May 02, 2024 09:00 AM AMBULATORY - NONE [facility] May 06, 2024 03:30 PM AMBULATORY - MEDICINE [facility] May 19, 2024 11:00 AM AMBULATORY - MEDICINE [facility] May 22, 2024 09:30 AM AMBULATORY - SURGERY . [facility] May 27, 2024 09:30 AM AMBULATORY - NONE [facility] Jul 11, 2024 02:00 PM AMBULATORY - NONE [facility] Aug 07, 2024 07:30 AM AMBULATORY - NONE [facility] Aug 15, 2024 10:30 AM AMBULATORY - MEDICINE [facility] Sep 04, 2024 01:30 PM AMBULATORY - MEDICINE [facility] Sep 05, 2024 10:00 AM AMBULATORY - NONE [facility] Sep 18, 2024 12:20 PM AMBULATORY - MEDICINE [facility] Sep 22, 2024 11:30 AM AMBULATORY - NONE [facility] Lab Results: +/- [...] Range Comment May 03, 2024 06:[address] [facility] GLUCOSE,BLOOD-poct (STL) Specimen Type: BLOOD Comment: Test Performed by: [id number] Meter #: [id number] Ordering Provider: PALMA WASHBURN III Report Released Date/Time: May 03, 2024 06:30 AM Reporting Lab: [address] [address] Performing Lab: [address] [address] GLUCOSE,BLOOD-po ct (STL) 107 mg/dL H 72-May 02, 2024 09:[address] [facility] GLUCOSE,BLOOD-poct (STL) Specimen Type: BLOOD Comment: Test Performed by: [id number] Meter #: [id number] Ordering Provider: PALMA WASHBURN III Report Released Date/Time: May 02, 2024 10:39 PM Reporting Lab: [address] [address] Performing Lab: [address] [address] GLUCOSE,BLOOD-po ct (STL) 122 mg/dL H 72-99 May 02, 2024 07:[address] [facility] MRSA SURVL NARES DNA Specimen Type: [...] May 02, 2024 07:37 PM Reporting Lab: [address] [address] Performing Lab: [address] [address] MRSA SURVL NARES DNA Negative Negative May 02, 2024 06:[address] [facility] GLUCOSE,BLOOD-poct (STL) Specimen Type: BLOOD Comment: Test Performed by: [id number] Meter #: [id number] Ordering Provider: PALMA WASHBURN III Report Released Date/Time: May 02, 2024 06:47 PM Reporting Lab: [place] [address] [facility] [address] Performing Lab: [address] [address] GLUCOSE,BLOOD-po ct (STL) 107 mg/dL H 72-99 May 02, 2024 04:[address] [facility] GLUCOSE,BLOOD-poct (STL) Specimen Type: BLOOD Comment: Test Performed by: [id number] Meter #: [id number] Ordering Provider: FILI EDWARDS Report Released Date/Time: May 02, 2024 04:26 PM Reporting Lab: [address] [address] Performing Lab: [address] [address] GLUCOSE,BLOOD-po ct (STL) 99 mg/dL 72-99 May 02, 2024 09:[address] [facility] GLUCOSE,BLOOD-poct (STL) Specimen Type: BLOOD Comment: Test Performed by: [id number] Meter #: [id number] Ordering Provider: FILI EDWARDS Report Released Date/Time: May 02, 2024 10:02 AM Reporting Lab: [facility] [address] [facility] [address] Performing Lab: [facility] [address] [place] [phone] GLUCOSE,BLOOD-po ct (STL) 104 mg/dL H 72-99 Apr 22, 2024 10:[address] [facility] COMPREHENSIVE METABOLIC PANEL Specimen Type: PLASMA Comment: K result may show a positive bias due to hemolysis. Specimen slightly hemolyzed. Ordering Provider: CHON COULTER Report Released Date/Time: Apr 22, 2024 10:03 AM Reporting Lab: [facility] [address] [place] [phone] Performing Lab: [address] [address] CREATININE 0.93 mg/dL 0.7-1.3 UREA NITROGEN 10.6 [...] 85.6 >60 Apr 22, 2024 10:[address] [facility] CBC Specimen Type: BLOOD No comment entered. Ordering Provider: CHON COULTER Report Released Date/Time: Apr 22, 2024 10:03 AM Reporting Lab: [facility] [address] [place] [phone] Performing Lab: [address] [address] WBC 7.2 10*3/uL 3.6-11.2 RBC 5.52 10*6/uL [...] 10*3/uL 0.00-0.20 Mar 27, 2024 11:[address] [facility] URINE DRUG SCREEN (STL) Specimen Type: URINE Comment: The cut-off value for this test was laboratory developed and its performance characteristics confirmed by the [facility] laboratory thru method comparison with reference laboratory and medication chart review. The laboratory is regulated under CLIA as qualified to perform high-complexity testing. This test is used for clinical purposes in conjunction with other laboratory tests. Ordering Provider: NATALIO BRIDGES Report Released Date/Time: Mar 27, 2024 09:30 AM Reporting Lab: [address] [address] Performing Lab: [address] [address] ETHANOL Negative mg/dL 0-20 AMPHET/METHAMPHE TAMINE Negative ng/mL COCAINE METABOLITES Negative ng/mL BENZODIAZEPINES (STL) Negative ng/mL CANNABINOIDS Negative ng/mL METHADONE Negative ng/mL OPIATES POSITIVE ng/mL CREATININE URINE/OTHERS 255.3 mg/dL H 63-166 OXYCODONE (VWIMP-ZTY-CW) Negative ng/mL BUPRENORPHINE (STL-PB-MA) Negative ng/mL FENTANYL (STL-PB) Negative ng/mL Mar 27, 2024 11:[address] [facility] LIPID PANEL (STL) Specimen Type: PLASMA No comment entered. Ordering Provider: JEANNETTE PEÑA Report Released Date/Time: December 11, 2023 10:25 AM Reporting Lab: [facility] [address] [facility] [address] Performing Lab: [facility] [address] [facility] [address] CHOLESTEROL 176 mg/dL 0-200 TRIGLYCERIDE 242 mg/dL H 0-150 CALCULATED LDL 95 mg/dL HDL(New) 33 mg/dL L >40 Mar 27, 2024 11:[address] [facility] HGA1C Specimen Type: BLOOD No comment entered. Ordering Provider: NATALIO BRIDGES Report Released Date/Time: Mar 27, 2024 09:29 AM Reporting Lab: [facility] [address] [facility] [address] Performing Lab: [place] [address] [facility] [address] HGA1C 5.9 4.0-6.0 Vital Signs: All taken on the encounter date This section contains inpatient and outpatient Vital Signs collected on the date of the Encounter. Date/Time Temperature Pulse Blood Pressure Respiratory Rate SP02 Pain Height Weight Body Mass Index Source Apr 10, 2024 10:57 AM 98.1 74 169/95 16 [address] [facility] Social History: Smoking Status (Most current) and Tobacco Use (All prior to encounter date) This section includes the most current, and the historical, smoking and tobacco- related health factors from the [place] facility where the Encounter took place. Current Smoking Status This section includes the most current smoking, or tobacco-related health factor, from the [place] facility where the Encounter took place. Date/Time Current Smoking Status Comment Tristan pastrana Oct 17, 2023 04:53 PM ORYX ADMIT TOBACCO SCREEN NO [facility] Tobacco Use History This section includes a history of the smoking, or tobacco-related health factors, that were collected on or before the date of the Encounter. The data comes from the [place] facility where the Encounter took place. Date/Time Smoking Status/Tobacco Use Comment F acility Oct 17, 2023 03:00 PM ORYX ADMIT TOBACCO SCREEN NO [facility] Dec 31, 2021 03:07 PM ORYX ADMIT TOBACCO SCREEN NO [facility] Apr 06, 2017 11:33 PM QUIT TOBACCO >[address] [facility] Mar 21, 2017 04:29 AM QUIT TOBACCO >[address] [facility] Jan 20, 2014 09:56 AM QUIT TOBACCO >[address] [facility] Jan 02, 2013 01:23 PM QUIT TOBACCO >[address] [facility] May 25, 2010 01:35 PM LIFETIME NON-USER OF TOBACCO [facility] Aug 17, 2009 01:04 PM QUIT TOBACCO >12 M O & <[address] [facility] Sep 17, 2008 01:34 PM QUIT TOBACCO >12 M O & <[address] [facility] Sep 20, 2006 10:57 AM QUIT TOBACCO >12 M O & <[address] [facility] Jun 05, 2006 10:49 AM CURRENT NON-TOBACC O USER-HX OF USE [facility] Jun 05, 2006 10:49 [address] [facility] Jul 14, 2005 11:00 AM CURRENT NON-TOBACC O USER-HX OF USE [facility] Jul 14, 2005 11:00 [address]CO TERMINATION [address] [facility] Oct 23, 2004 04:56 PM CURRENT NON-TOBACC O USER-HX OF USE [facility] Oct 23, 2004 04:56 [address] [facility] Apr 07, 2004 10:58 AM CURRENT NON-TOBACC O USER-HX OF USE [facility] Apr 07, 2004 10:58 [address] TOBACCO MAINTENANCE STAGE [facility] December 18, 2002 11:17 AM CURRENT TOBACCO USER [facility] December 18, 2002 11:17 AM TOBACCO USE [facility] Apr 07, 2002 02:25 PM CURRENT NON-TOBACC O USER-RECENTLY QUIT quit [address] [facility] Apr 07, 2002 02:25 PM TOBACCO USE quit [address] [facility] Nov 19, 2001 10:50 AM CURRENT TOBACCO USER [facility] Jul 16, 2001 08:35 AM CURRENT TOBACCO USER [facility] Jun 18, 2001 08:31 AM CURRENT TOBACCO USER [facility] Jun 18, 2001 08:31 AM TOBACCO USE [facility] Advance Directives: All historical and current Section Date Range: From patient's date of to the date document was created. This section includes ALL of a patient's completed or amended [place] Advance and Rescinded Directives. The entries below indicate that a directive exists for the patient, but an actual copy is not included with this document. The data comes from all [place] facilities. Date Advance Directives Provider Source Feb 18, 2018 ADVANCE DIRECTIVE DISCUSSION EMMETT CAMILO [facility] Radiology Reports: +/- 30 days of [...] the Encounter. The data comes from all [place] treatment facilities. Date/Time Radiology Report Provider Source Apr 22, 2024 10:54 AM CHEST X-RAY, 2 VIE WS: MAURILIO DUQUE [id number] -[id number] M Exm Date: APR 22, 2024@10:54 Req Phys: CHON COULTER Pat Loc: [facility] PREOP EVAL 1 (Req'g Lo Img Loc: [facility] RADIOLOG[facility] SUITE Service: [facility], [facility] [address] [place] [address] (Case [id number] COMPLETE) CHEST X-RAY, 2 VIEWS (RAD Detailed) CPT:57823 Reason for Study: preop Clinical History: Report Status: Verified Date Reported: APR 22, 2024 Date Verified: APR 22, 2024 Guest Services Attendant E-Sig:/ES/Jelani Luong MD Report: FINDINGS: The examination was compared with previous examination of September. Heart size is normal. Mediastinal structures appear unremarkable. Both lungs are fully expanded without evidence of pulmonary infiltrates or additional significant findings. Impression: No evidence of acute cardiopulmonary disease. Primary Interpreting Staff: Jelani Luong MD, Radiologist (Henri) /QMB JELANI LUONG [facility] Pathology Reports: +/- 30 days of [...] the Encounter. The data comes from all [place] treatment facilities. Date/Time Pathology Report Provider Source [...] Specimen (Received May 05, 2024 09:21): Caterina DAVID RESEVOIR (JAK) - - - - - - [...] specimen is for gross examination only. DIAGNOSIS: CASE MANAGEMENT SPECIALIST, REMOVAL: - CASE MANAGEMENT SPECIALIST, CONSISTENT WITH INFLATABLE PENILE PROSTHESIS RESERVOIR (IPP-RESERVOIR) (GROSS EXAMINATION ONLY) /bhupendra CASTILLO M.D., PH.D. PATHOLOGIST Signed May 05, 2024@10:41 Performing Laboratory: Surgical Pathology Report Performed By: [address] [id number] [address] [address] $FTR - - - - - - - - - - - - - - - - - - - - - - - - - - - - - - - - - - - - - - - - (End of report) IVAN CASTILLO MD vp construction Date May 05, 2024 - - - - - - - - - - - - - - - - - - - - - - - - - - - - - - - - - - - - - - - - MAURILIO DUQUE STANDARD FORM 515 ID:[id number] SEX:M :1950 AGE: 73 LOC:[facility] PCP: Natalio Bridges MD /bhupendra CASTILLO M.D., PH.D. PATHOLOGIST Signed: 05/05/2024 10:41 IVAN CASTILLO [facility] Encounter Notes: All associated encounter notes This section contains the clinical notes associated to the Encounter. Date/Time Encounter Note(s) Provider Source May 02, 2024 05:58 AM SURGERY ATTENDING PRE OPERATIVE E & M NOTE: LOCAL TITLE: GENERAL SURGERY PRE-OP HISTORY AND PHYSICAL STL STANDARD TITLE: SURGERY ATTENDING PRE OPERATIVE E & M NOTE DATE OF NOTE: MAY 02, 2024@05:58 ENTRY DATE: MAY 02, 2024@05:59:24 AUTHOR: MONTY ROMERO COSIGNER: PALMA WASHBURN III URGENCY: STATUS: COMPLETED GENERAL SURGERY PRE-OP HISTORY AND PHYSICAL STL Has ADDENDA MAY 02, 2024 CC: right inguinal hernia HPI: 73-year-old male with a past medical history of hypertension, diabetes, mellitus, GERD, COPD, and a complicated inguinal surgical history who presents today for evaluation of a symptomatic recurrent right-sided inguinal hernia. In regards to his surgical history, in his inguinal areas including the left orchiectomy and placement of a inflatable penile prosthesis in 2021. This was done through his left groin complicated by left-sided scrotal pain requiring removal of his scrotal pump and penile prosthesis and placement of malleable penile prosthesis, then subsequent removal of his malleable penile prosthesis. Patient still has penile prosthesis reservoir within his abdomen. In regards to his inguinal hernias, he had bilateral open hernia repairs with mesh performed in September 2022 complicated by recurrence on the right side status post right-sided repeat open inguinal hernia repair with additional mesh placement in February 2023. He then had symptoms, clinical evidence and imaging consistent with recurrence on the right and once again underwent right inguinal exploration which revealed no visible defect a small cyst was removed during that procedure. Path from the cyst revealed chronic inflammation without epithelial lining. Interval Events: In December 2019, seen in clinic with ongoing pain associated with a recurrent right-sided inguinal hernia (no symptoms of obstruction). CT scan shows right-sided inguinal hernia which is small containing fat. There was concern for patient straining with bowel movements, where rectal examination which showed weak squeeze. Reassessed in clinic on March 2024, still complaining of right inguinal hernia pain. Referred for pelvic floor physical therapy. Of note patient also has a small umbilical hernia on CT imaging. Surgical History: as detailed in HPI Social history: noncontributory Family history: noncontributory Medical History: 1) Benign essential hypertension (SNOMED CT 7953824) 2) Left trigeminal neuralgia (SNOMED CT 26488065062592902) 3) GERD - Gastro-esophageal reflux disease (SNOMED CT 397143087) 4) Chronic obstructive lung disease (SNOMED CT 75432521) 5) LBP - Low back pain (SNOMED CT 461177865) 6) Knee pain (SNOMED CT 21232401) 7) Chest pain 8) Hip joint pain 9) Candidiasis of the esophagus 10) Parotitis 11) Cervicalgia 12) Long-term current use of opiate analgesic drug 13) Diabetes Mellitus Type 2 ([facility] 55062881) 14) Inguinal hernia 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 Apr Standard doses needed: 2 Outpatient Medications Active Outpatient Medications (including Supplies): Active Outpatient [...] A ACTIVE DAY TO LOWER BLOOD PRESSURE ROS: 10-point ROS negative unless otherwise noted in HPI O: Temp: 97.9 F [36.6 C] (04/22/2024 09:54) Pulse Ox: Measurement DT POx (L/MIN)(%) 04/22/2024 09:54 98 04/10/2024 10:57 98 03/27/2024 11:12 98 02/22/2024 10:30 97 PULSE: 62 (04/22/2024 09:54) RESPIRATION: 18 (04/22/2024 09:54) BLOOD PRESSURE: 142/75 (04/22/2024 09:54) Physical Exam GEN: NAD, Conversational NEURO: No focal deficit LUNGS: Non-labored on RA HEART: RRR ABDOMEN: Soft, Non-tender, non-distended, right inguinal hernia EXT: WWP Labs: reviewed Imaging: reviewed Diagnosis: recurrent right inguinal hernia Assessment: 73-year-old man with a complex surgical history including multiple right-sided hernia repairs who presents with symptomatic recurrence. He is currently scheduled for right robotic repair. Patient was planned to follow with pelvic physical therapy as straining with his urination and bowel movements is likely contributing to his his recurrences. He has undergone multiple open repairs in the past and would benefit from a robotic approach. There is a possibility he is suffering from chronic pain associated with multiple hernia repairs on the right this was discussed with the patient as well as the possibility of repeat repair of his right ring inguinal hernia not alleviating his pain symptoms. We discussed the possibility of removing his penile reservoir which is still in his abdomen if it is easily accessible during her surgery. Plan: Proceed robotic recurrent right hernia repair with mesh, possible penile prosthesis reservoir removal. Discussed risks and benefits. All questions answered. -patient marked -perioperative ancef to be completed -NPO since midnight -will refer to pelvic floor therapy as an outpatient /radha/ MONTY ROMERO RESIDENT PHYSICIAN Signed: 05/02/2024 10:16 /radha/ Palma Washburn III, MD [facility] General Surgery Attending Cosigned: 05/02/2024 12:24 05/02/2024 ADDENDUM STATUS: COMPLETED The patient was seen and examined on: 05/02/24 I have examined the patient with the resident. I have discussed the patient with the resident team and I agree with the above. I have reviewed the patient's prior notes, pertinent labs and imaging reports, and personally reviewed relevant imaging. We discussed robotic hernia repair, along with alternatives, benefits and risks to include but not limited to: bleeding, infection, pain, scar, numbness, wound complication, recurrence, damage to surrounding structures not limited to bowel/bladder/nerves/vessels/micah micah, conversion to open and need for further procedures. They reported understanding and wished to proceed. I counseled him that if it was easy I would remove his penile pump reservoir otherwise I will leave it be /radha/ Palma Washburn III, MD [facility] General Surgery Attending Signed: 05/02/2024 12:[address] [facility] Apr 21, 2024 12:14 PM SURGERY NOTE: LOCAL TITLE: GENERAL SURGERY NOTE STL STANDARD TITLE: SURGERY NOTE DATE OF NOTE: APR 21, 2024@12:14 ENTRY DATE: APR 21, 2024@12:14:39 AUTHOR: BART ASTORGA COSIGNER: URGENCY: STATUS: COMPLETED GENERAL SURGERY NOTE STL Has ADDENDA If a patient should call inquiring about this procedure or to cancel, please dial extension [phone] or [phone]. You can also send a teams message to Bart Astorga or Shannon Esquivel. It is important that direct communication be made with a member of the surgery team. Please do not simply leave a message in the chart. Procedure: robotic RIH with mesh Pt. agreeable to this surgical date: 05/02/24 arriving 0900 to [facility] Will likely be discharged the same day and will need ambulance driver to go home after surgery. Pt. verbalized understanding NPO after midnight before surgery. Patient voiced understanding that should they fail to comply with these instructions their case will be cancelled and may not be rescheduled for several weeks. Take ususal morning medications the day of surgery with sips of water/no coffee. Patient instructed to hold the following medications: valsartan, metformin Do not bring your medications. Any medications you need will be provided for you. Bring your inhalers(use morning of surgery) and CPAP machine, if you use them. Preoperative printout bathing instruction reviewed and given to patient. Chlorhexidine preoperative liquid soap has been ordered and will be mailed via pharmacy. Take shower with preoperative liquid soap the night before surgery and the morning of surgery. Preop letter included the above information given to pt during clinic visit Pt. verbalized all understanding of the above information. Pt. encouraged to call surgical dept for further questions or concerns. Surgical dept extension is included within the preop letter. Pt. made aware anesthesia consult will be submitted. /radha/ BART ASTORGA PA-C Physician Central Supply Assistant, General Surgery Signed: 04/21/2024 12:19 Receipt Acknowledged By: 04/21/2024 14:46 /radha/ Palma Washburn III, MD FACS General Surgery Attending 04/22/2024 ADDENDUM STATUS: COMPLETED Patient requesting to spend the night after surgery to be discharged on 05/03. Patient will get a ambulance driver to take him home on 05/03. /radha/ PAMELA GARCIA RN, BSN REGISTERED NURSE Signed: 04/22/2024 11:21 04/24/2024 ADDENDUM STATUS: COMPLETED SENT LETTER TO CONFIRM SHAWNT /radha/ ARIE LIRA [facility] ASSTISANT Signed: 04/24/2024 12:10 BART ASTORGA [facility] Apr 10, 2024 04:59 PM SURGERY NOTE: LOCAL TITLE: GENERAL SURGERY NOTE STL STANDARD TITLE: SURGERY NOTE DATE OF NOTE: APR 10, 2024@16:59 ENTRY DATE: APR 10, 2024@17:00:39 AUTHOR: VITO BIRD COSIGNER: PALMA WASBHURN III URGENCY: STATUS: COMPLETED GENERAL SURGERY NOTE STL Has ADDENDA APR 10, 2024 HPI: 73-year-old male with a past medical history of hypertension, diabetes, mellitus, GERD, COPD, and a complicated inguinal surgical history who presents today for evaluation of a symptomatic recurrent right-sided inguinal hernia. In regards to his surgical history, in his inguinal areas including the left orchiectomy and placement of a inflatable penile prosthesis in 2021. This was done through his left groin complicated by left-sided scrotal pain requiring removal of his scrotal pump and penile prosthesis and placement of malleable penile prosthesis, then subsequent removal of his malleable penile prosthesis. Patient still has penile prosthesis reservoir within his abdomen. In regards to his inguinal hernias, he had bilateral open hernia repairs with mesh performed in September 2022 complicated by recurrence on the right side status post right-sided repeat open inguinal hernia repair with additional mesh placement in February 2023. He then had symptoms, clinical evidence and imaging consistent with recurrence on the right and once again underwent right inguinal exploration which revealed no visible defect a small cyst was removed during that procedure. Path from the cyst revealed chronic inflammation without epithelial lining. Interval Events: Patient was seen in clinic in December 2019 for and at that time complained of ongoing pain associated with a recurrent right-sided inguinal hernia. CT scan shows right-sided inguinal hernia which is small containing fat. He denies symptoms of obstructive obstruction. During his last clinical evaluation there was concern for patient straining with bowel movements. He underwent rectal examination which showed weak squeeze. And was referred for pelvic floor physical therapy. He was also scheduled for right robotic inguinal hernia repair on 05/02/2024. Of note patient also has a small umbilical hernia on CT imaging. Outpatient Medications Active Outpatient Medications (including Supplies): Active Outpatient [...] (S) DAY TO LOWER BLOOD PRESSURE O: Temp: 98.1 F [36.7 C] (04/10/2024 10:57) Pulse Ox: Measurement DT POx (L/MIN)(%) 04/10/2024 10:57 98 03/27/2024 11:12 98 02/22/2024 10:30 97 01/03/2024 09:54 98 PULSE: 74 (04/10/2024 10:57) RESPIRATION: 16 (04/10/2024 10:57) BLOOD PRESSURE: 169/95 (04/10/2024 10:57) Physical Exam GEN: NAD, Conversational, obese NEURO: No focal deficit LUNGS: Non-labored on RA HEART: RRR ABDOMEN: Soft, Non-tender, non-distended, no clinically evident bulge on the left. Small right-sided inguinal hernia palpated area is tender. EXT: WWP Labs: reviewed Imaging: reviewed Diagnosis: Recurrent right-sided inguinal hernia Assessment: 73-year-old man with a complex surgical history including multiple right-sided hernia repairs who presents with symptomatic recurrence. He is currently scheduled for right robotic repair. Patient was planned to follow with pelvic physical therapy as straining with his urination and bowel movements is likely contributing to his his recurrences. He has undergone multiple open repairs in the past and would benefit from a robotic approach. There is a possibility he is suffering from chronic pain associated with multiple hernia repairs on the right this was discussed with the patient as well as the possibility of repeat repair of his right ring inguinal hernia not alleviating his pain symptoms. We discussed the possibility of removing his penile reservoir which is still in his abdomen if it is easily accessible during her surgery. Plan: Follow-up with pelvic floor therapy as an outpatient prior to surgery Holding surgery date for 05/02/2024 for robotic recurrent right hernia repair with mesh, possible penile prosthesis reservoir removal. /radha/ VITO BIRD DO Resident Physician, General Surgery II Signed: 04/10/2024 17:23 /radha/ Palma Washburn III, MD [facility] General Surgery Attending Cosigned: 04/11/2024 17:22 04/11/2024 ADDENDUM STATUS: COMPLETED The patient was seen and examined on: 04/10/24 I have examined the patient with the resident. I have discussed the patient with the resident team and I agree with the above. I have reviewed the patient's prior notes, pertinent labs and imaging reports, and personally reviewed relevant imaging. We discussed robotic hernia repair, along with alternatives, benefits and risks to include but not limited to: bleeding, infection, pain, scar, numbness, wound complication, recurrence, damage to surrounding structures not limited to bowel/bladder/nerves/vessels/micah micah, conversion to open and need for further procedures. They reported understanding and wished to proceed. /radha/ Palma Washburn III, MD [facility] General Surgery Attending Signed: 04/11/2024 17:23 VITO BIRD [facility]
--- OUTSIDE RECORDS SUMMARY | 2024-11-02 11:56 | XMS_ITS ---
Author Name [facility] [facility] [place] Address [address] [place] [address] Care Team Providers Care Sign Board Erector Name Role Phone NATALIO BRIDGES Primary Care [...] PART B Oct 28, 2001 PART B [id number] [phone] Petra DUQUE PATIENT MEDICARE (WNR) MEDICARE (M) PART A Oct 28, 2001 PART A [id number] Petra DUQUE PATIENT MEDICARE (WNR) MEDICARE (M) PART A Oct 28, 2001 PART A [id number] [phone] Petra DUQUE PATIENT Selected Encounter This section includes the information on record at [place] for the Encounter. Date/Time Encounter Type Encounter Description Reason Provider Source Feb 22, 2024 10:30 AM OFFICE O/P EST HI 40 MIN CARDIOLOGY ICD-10-CM R06.02 Shortness of breath JEANNETTE PEÑA [facility] Encounter Template Text not used by [place] Assessments - Encounter Diagnoses This section includes the primary and secondary diagnoses documented for the Encounter. Date/Time Primary/Secondary Diagnosis Diagnosis Name Provider Source Mar 28, 2024 03:02 PM PRIMARY Shortness of breath JEANNETTE PEÑA [facility] Mar 28, 2024 03:02 PM SECONDARY Chest pain, unspecified [facility] Mar 28, 2024 03:02 PM SECONDARY Chronic obstructive pulmonary disease, unspecified [facility] Mar 28, 2024 03:02 PM SECONDARY Essential (primary) hypertension [facility] Mar 28, 2024 03:02 PM SECONDARY Type 2 diabetes mellitus without complications JEANNETTE PEÑA [facility] Plan of Treatment: Future Appointments (+ 6 months) and Future Tests (+/- 45 days) The Plan of Treatment section includes future care activities for the patient from [facility] [place] [facility] This section includes future appointments and future orders which are active, pending or scheduled. Future Appointments This section includes appointments that were scheduled to occur 6 months from the date of the Encounter, up to a maximum of 20 appointments. The data comes from all [place] treatment facilities. Appointment Date/Time Appointment Type Appointme nt Facility Name Feb 27, 2024 08:15 AM AMBULATORY - MEDICINE [facility] Mar 26, 2024 11:00 AM AMBULATORY - NONE . [facility] Mar 27, 2024 12:40 PM AMBULATORY - MEDICINE [facility] Apr 10, 2024 10:30 AM AMBULATORY - SURGERY [facility] Apr 22, 2024 10:00 AM [facility] May 02, 2024 09:00 AM AMBULATORY - NONE . [facility] May 06, 2024 03:30 PM AMBULATORY - MEDICINE [facility] May 19, 2024 11:00 AM AMBULATORY - MEDICINE [facility] May 22, 2024 09:30 AM AMBULATORY - SURGERY [facility] Joseline GONGORA [facility] May 27, 2024 09:30 AM AMBULATORY - NONE . DOROTHY Morillo [facility] Jul 11, 2024 02:00 PM AMBULATORY - NONE [facility] DOROTHY Morillo [facility] Aug 07, 2024 07:30 AM AMBULATORY - NONE [facility] DOROTHY [facility] Aug 15, 2024 10:30 AM AMBULATORY - MEDICINE [facility] Active, Pending, and Scheduled Orders This section includes a listing of several types of active, pending, and scheduled orders, including clinic medications orders, diagnostic test orders, procedure orders and consult orders; where the start date of the order is 45 days before the date of the Encounter or 45 days after the date of theEncounter. The data comes from all [facility] facilities. Test Date/Time Test Type Test Details Facility Name Jan 15, 2024 12:00 AM Laboratory - Chemistry Order HGA 1C BLOOD SP [facility] Jan 15, 2024 12:00 AM Laboratory - Chemistry Order CBC BLOOD [facility] Vital Signs: All taken on the encounter date This section contains inpatient and outpatient Vital Signs collected on the date of the Encounter. Date/Time Temperature Pulse Blood Pressure Respiratory Rate SP02 Pain Height Weight Body Mass Index Source Feb 22, 2024 10:30 AM 98 81 103/63 18 97 0 218.6 28 [facility] Social History: Smoking Status (Most current) and Tobacco Use (All prior to encounter date) This section includes the most current, and the historical, smoking and tobacco- related health factors from the [place] facility where the Encounter took place. Current Smoking Status This section includes the most current smoking, or tobacco-related health factor, from the [place] facility where the Encounter took place. Date/Time Current Smoking Status Comment Tristan pastrana Oct 17, 2023 04:53 PM ORYX ADMIT TOBACCO SCREEN NO [facility] Tobacco Use History This section includes a history of the smoking, or tobacco-related health factors, that were collected on or before the date of the Encounter. The data comes from the [place] facility where the Encounter took place. Date/Time Smoking Status/Tobacco Use Comment F acility Oct 17, 2023 03:00 PM ORYX ADMIT TOBACCO SCREEN NO [facility] Dec 31, 2021 03:07 PM ORYX ADMIT TOBACCO SCREEN NO [facility] Apr 06, 2017 11:33 PM QUIT TOBACCO >7 YEARS AGO [facility] Mar 21, 2017 04:29 AM QUIT TOBACCO >7 YEARS AGO [facility] Jan 20, 2014 09:56 AM QUIT TOBACCO >7 YEARS AGO [facility] Jan 02, 2013 01:23 PM QUIT TOBACCO >7 YEARS AGO [facility] May 25, 2010 01:35 PM LIFETIME NON-USER OF TOBACCO [facility] Aug 17, 2009 01:04 PM QUIT TOBACCO >12 M O & <7 YRS AGO [facility] Sep 17, 2008 01:34 PM QUIT TOBACCO >12 M O & <7 YRS AGO [facility] Sep 20, 2006 10:57 AM QUIT TOBACCO >12 M O & <7 YRS AGO [facility] Jun 05, 2006 10:49 AM CURRENT NON-TOBACC O USER-HX OF USE [facility] Jun 05, 2006 10:49 AM TOBACCO TERMINATION STAGE [facility] Jul 14, 2005 11:00 AM CURRENT NON-TOBACC O USER-HX OF USE [facility] Jul 14, 2005 11:00 AM TOBACCO TERMINATION STAGE [facility] Oct 23, 2004 04:56 PM CURRENT NON-TOBACC O USER-HX OF USE [facility] Oct 23, 2004 04:56 PM TOBACCO ACTION STAGE [facility] Apr 07, 2004 10:58 AM CURRENT NON-TOBACC O USER-HX OF USE [facility] Apr 07, 2004 10:58 AM TOBACCO MAINTENANCE STAGE [facility] December 18, 2002 11:17 AM CURRENT TOBACCO USER [facility] December 18, 2002 11:17 AM TOBACCO USE [facility] Apr 07, 2002 02:25 PM CURRENT NON-TOBACC O USER-RECENTLY QUIT quit 3 mo ago [facility] Apr 07, 2002 02:25 PM TOBACCO USE quit 3 mo ago [facility] Nov 19, 2001 10:50 AM CURRENT TOBACCO USER [facility] Jul 16, 2001 08:35 AM CURRENT TOBACCO USER [facility] Jun 18, 2001 08:31 AM CURRENT TOBACCO USER [facility] Jun 18, 2001 08:31 AM TOBACCO USE [facility] Advance Directives: All historical and current Section Date Range: From patient's date of to the date document was created. This section includes ALL of a patient's completed or amended [place] Advance and Rescinded Directives. The entries below indicate that a directive exists for the patient, but an actual copy is not included with this document. The data comes from all [place] facilities. Date Advance Directives Provider Source Feb 18, 2018 ADVANCE DIRECTIVE DISCUSSION EMMETT CAMILO [facility] Encounter Notes: All associated encounter notes This section contains the clinical notes associated to the Encounter. Date/Time Encounter Note(s) Provider Source Feb 22, 2024 10:27 AM CARDIOLOGY OUTPATIENT NOTE: LOCAL TITLE: CARDIOLOGY OUTPATIENT FOLLOW UP [facility] STANDARD TITLE: CARDIOLOGY OUTPATIENT NOTE DATE OF NOTE: FEB 22, 2024@10:27 ENTRY DATE: FEB 22, 2024@10:27:37 AUTHOR: JEANNETTE PEÑA EXP COSIGNER: URGENCY: STATUS: COMPLETED CARDIOLOGY OUTPATIENT FOLLOW UP [facility] Has ADDENDA Cardiology Outpatient Note [facility] CARDIOLOGY SERVICE: CARDIOLOGY NOTE REASON FOR VISIT: f/u chest pressure with dizziness HPI: Julio Duque is a 73 yo comes today for f/u regarding his pertinent medical history of chest pain, with dx of HTN, HLD, COPD, DMT2, GERD. I first saw him for consult on November 19, 2023 He reported having significant SOB/cough with ambulation/any type of [...] in the main or lobar pulmonary arteries. in October he continued to have significant SOB and reported getting dizzy at times. He had PFTs conmpleted that showed a mild restrictive pattern with no evidence of obstruction although prior CT scans show evidence of emphysema. Had a recurrent episode of COVID in March 2023. Reporting that he has not yet recovered his previous level of activity since then. He denies chest pain but does report some pressure at times. He denies excessive bruising or bleeding. he denies fever or night sweats. He denies lower leg swelling. Is positive for near syncope but no syncope. Has ZIMMERMAN. Social hx:Negative smoking, alcohol or recreational drug use, Quit smoking 22 years ago .. He flips [employer] [id number] [birth year] GENERAL Family hx:NONE ROS: 11 point review of systems completed with all pertinent information placed in HPI ACTIVE PROBLEMS: 1) Benign essential hypertension (SNOMED CT 2816070) 2) Left trigeminal neuralgia (SNOMED CT 32581828622182306) 3) GERD - Gastro-esophageal reflux disease (SNOMED CT 749323124) 4) Chronic obstructive lung disease (SNOMED CT 99981308) 5) LBP - Low back pain (SNOMED CT 151313458) 6) Knee pain (SNOMED CT 45054286) 7) Chest pain 8) Hip joint pain 9) Candidiasis of the esophagus 10) Parotitis 11) Cervicalgia 12) Long-term current use of opiate analgesic drug 13) Diabetes Mellitus Type 2 ([facility] [id number]) 14) Inguinal hernia 15) Inguinal hernia 16) [...] TAB TAKE ONE TABLET BY MOUTH ACTIVE (S) ONCE A DAY FOR HEART/BLOOD PRESSURE 4) [...] A ACTIVE DAY TO LOWER BLOOD PRESSURE All cardiac medications listed above were reconciled during the visit VASCULAR LABORATORY: CAROTID DUPLEX EXAMINATION 11/21/2023 Indication: Dizziness Rt ICA:<50% stenosis Rt ICA PSV:93 Rt ICA EDV:18 Rt CCA: Patent Rt CCA PSV:65 Rt CCA EDV:10 Rt ECA: Patent Rt ECA PSV:118 Rt VERT: Antegrade IC/CC RATIO:1.44 Lt ICA:<50% stenosis Lt ICA PSV:95 Lt ICA EDV:18 Lt CCA: Patent Lt CCA PSV:65 Lt CCA EDV:9 Lt ECA: Patent Lt ECA PSV:118 Lt VERT: Antegrade IC/CC RATIO: 1.47 IMPRESSION:there is <50% stenosis of both internal carotid arteries. both external carotid arteries are patent and both vertebral arteries are antegrade. ------- ECHO:12/11/2023 Conclusion 1. Normal left ventricular size. Mild [...] 3 mmHg. 9. Effusion: No pericardial effusion. STRESS TEST: 01/14/2024 Impression: 1. Normal SPECT myocardial imaging without evidence of stress-induced ischemia. 2. Normal left ventricle contractility with LVEF of 71%. 07/11/2021 Impression: 1. Normal SPECT myocardial imaging without evidence of stress-induced ischemia. 2. Normal left ventricle contractility with LVEF of 67%. CORONARY ANGIOGRAPHY 08/2017 [place] [facility]els Summary: Nonobstructive CAD Dominance: Right dominant Narrative Description: Left Main: Long, normal caliber artery without angiographically significant stenosis. LAD: Long artery that gives off a diminutive first diagonal branch followed by a small second diagonal branch before tapering to and wrapping around the apex. There is no angiographically significant stenosis. Circumflex: Non dominant artery that gives a long OM1 branch. The OM1 is long and ends in a bifurcation. The circumflex tapers to its termination in the AV groove. There is no angiographically significant stenosis. RCA: Dominant vessel that with mid mild (20%) stenosis before bifurcating into PDA/PL branches. There are many small sub branches of the PA/PL. LAST LABS: TSH: TSH 2.309 uIU/mL 01/11/2024 09:10 2.1 mg/dL (10/19/23 06:00) TRIGLYCERIDE 222 H mg/dL 01/11/2024 09:10 CHOLESTEROL 182 mg/dL 01/11/2024 09:10 HDL(New) 34 L mg/dL 01/11/2024 09:10 CALCULATED LDL 104 mg/dL 01/11/2024 09:10 HGA1C 5.8 % 09/12/2022 11:13 Comprehensive Metabolic Panel Results: SODIUM 138 mEq/L 01/11/2024 09:10 POTASSIUM 4.4 [...] 09:10 EGFR (CKD-EPI 2020) 63.1 01/11/2024 09:10 WBC 8.4 10*3/uL 11/30/2023 13:10 RBC 6.08 [...] IMMATURE PLT FRACTION 5.2 % 11/30/2023 13:10 PHYSICAL ASSESSMENT GENERAL: well-mannered, well-groomed 73 yo male NECK: no JVD, no carotid bruit CARDIO: RRR, S1S2 present, no murmur PULM: LSCB, no cough, rales or wheeze ABDOMEN: nondistended, nontender and soft EXTREMITIES: 2+ post tibial pulses, with no edema NEUROLOGIC: AAOx3, normal motor strength PSYCHIATRIC: affect and mood normal VITALS: Temperature: 98 F [36.7 C] (02/22/2024 10:30) Blood Pressure: 103/63 (02/22/2024 10:30) Pulse: 81 (02/22/2024 10:30) Respirations: 18 (02/22/2024 10:30) ECG: Release Status: Released Off-Line Verified Date Verified: Nov 20, 2023@16:53:45 84688.2 Ventricular Rate: 71 BPM 48321.3 Atrial Rate: 71 BPM 13569.4 P-R Interval: 178 ms 66719.5 QRS Duration: 106 ms 58842.6 Q-T Interval: 400 ms 60373 QTC Calculation(Bazett)434 ms 84053.12 Calculated P [place]: 60 degrees 79144.13 Calculated R [place]: 51 degrees 84617.14 Calculated T [place]: 60 degrees Normal sinus rhythm Normal ECG When compared with ECG of 17-OCT-2023 10:02, No significant change was found ASSESSMENT AND PLAN 1.chest pain/pressure with exertion had nuclear stress and echo completed both fairly normal, [facility] back in 2018 normal. Will get 2 week holter to complete cardiac work-up. Most likely sx are related to his COPD 2.dizziness with carotid completed years ago showed non-obstructive disease, Carotid duplex repeated and noted <50% bilat 3.HTN controlled with amlodipine and valsartan 4.DMT2 on metformin A1C well below goal 5.HLD LDL 104, coronaries negative, encouraged him to eat nutrious meals with more vegetables and lean proteins, add plant sterols RTC in 6 months, will extend out to a year at next visit if holter normal Spent 40 min reviewing records/labs/obtaining history/examining patient/ordering [...] completed, the results will be found in [facility]. # HEALTH PROMOTION/HEALTH MAINTENANCE & EDUCATION [...] Life Sustaining Treatment Orders /es/ JEANNETTE PEÑA NP CARDIOLOGY/ELECTROPHYSIOLOGY UNIT EDUCATOR Signed: 02/22/2024 11:11 04/02/2024 ADDENDUM STATUS: COMPLETED 14-day Ambulatory Holter Report Date [...] 12-lead ECGs (2023): NSR; intermittent Incomplete RBBB (rate- dependent) 1. Cardiac Rhythm: Sinus: NSR 77%; sinus [...] NO arrhythmias to account for dizziness /es/ JEANNETTE PEÑA NP CARDIOLOGY/ELECTROPHYSIOLOGY UNIT EDUCATOR Signed: 04/08/2024 09:48 JEANNETTE PEÑA [facility]
--- OUTSIDE RECORDS SUMMARY | 2024-11-02 11:56 | XMS_ITS | Encounter Summary ---
Author Name [facility] [place] [facility] [place] [facility] [place] Address [address] [place] [address] Care Team Providers Care Fire And Safety Helper Name Role Phone NATALIO BRIDGES Primary Care [...] PART B Oct 28, 2001 PART B [id number] [phone] Petra DUQUE PATIENT MEDICARE (WNR) MEDICARE (M) PART A Oct 28, 2001 PART A [id number] Petra DUQUE PATIENT MEDICARE (WNR) MEDICARE (M) PART A Oct 28, 2001 PART A [id number] [phone] Petra DUQUE PATIENT Selected Encounter This section includes the information on record at [place] for the Encounter. Date/Time Encounter Type Encounter Description Reason Provider Source May 02, 2024 04:04 PM Outpatient Encounter ADMIN PAT ACTIVTIES (KIRSTIENONCT) EUGENIE GARCIA Ernie Encounter Template Text not used by [place] Plan of Treatment: Future Appointments (+ 6 months) and Future Tests (+/- 45 days) The Plan of Treatment section includes future care activities for the patient from all [place] [facility]. This section includes future appointments and future [...] 03:30 PM AMBULATORY - MEDICINE [facility] May 19, 2024 11:00 AM AMBULATORY - MEDICINE [facility] May 22, 2024 09:30 AM AMBULATORY - SURGERY [facility] May 27, 2024 09:30 AM [facility] NONE [facility] Jul 11, 2024 02:00 PM AMBULATORY - NONE [facility] Aug 07, 2024 07:30 AM AMBULATORY - NONE [facility] Aug 15, 2024 10:30 AM AMBULATORY - MEDICINE [facility] Sep 04, 2024 01:30 PM AMBULATORY - MEDICINE [facility] Sep 05, 2024 10:00 AM AMBULATORY - NONE [facility] Sep 18, 2024 12:20 PM AMBULATORY - MEDICINE [facility] Sep 22, 2024 11:30 AM AMBULATORY - NONE [facility] Oct 27, 2024 11:15 AM AMBULATORY - MEDICINE [facility] Lab Results: +/- 30 days of the encounter This section includes the Chemistry and Hematology Lab Results on record with [place] for the patient. Radiology Reports and Pathology Reports are provided separately, in subsequent sections. Lab Results This section contains the Chemistry/Hematology Results that were resulted 30 days before or 30 daysafter the date of the Encounter. Date/Time Source Result Type Result - Unit Interpretation Reference Range Comment May 03, 2024 06:10 AM [facility] GLUCOSE,BLOOD-poct (STL) Specimen Type: BLOOD Comment: Test Performed by: [id number] Meter #: [id number] Ordering Provider: PALMA WASHBURN III Report Released Date/Time: May 03, 2024 06:30 AM Reporting Lab: [address] [address] Performing Lab: [address] [address] GLUCOSE,BLOOD- poct (STL) 107 mg/dL H 72-99 May 02, 2024 09:17 PM [facility] GLUCOSE,BLOOD-poct (STL) Specimen Type: BLOOD Comment: Test Performed by: [id number] Meter #: [id number] Ordering Provider: PALMA WASHBURN III Report Released Date/Time: May 02, 2024 10:39 PM Reporting Lab: [address] [address] Performing Lab: [address] [address] GLUCOSE,BLOOD- poct (STL) 122 mg/dL H 72-99 May 02, 2024 07:15 PM [facility] MRSA SURVL NARES DNA Specimen Type: [...] May 02, 2024 07:37 PM Reporting Lab: [address] [address] Performing Lab: [address] [address] MRSA SURVL NARES DNA Negative Negative May 02, 2024 06:35 PM [facility] GLUCOSE,BLOOD-poct (STL) Specimen Type: BLOOD Comment: Test Performed by: [id number] Meter #: [id number] Ordering Provider: PALMA WASHBURN III Report Released Date/Time: May 02, 2024 06:47 PM Reporting Lab: [address] [address] Performing Lab: [address] [address] GLUCOSE,BLOOD- poct (STL) 107 mg/dL H 72-99 May 02, 2024 04:15 PM [facility] GLUCOSE,BLOOD-poct (STL) Specimen Type: BLOOD Comment: Test Performed by: [id number] Meter #: [id number] Ordering Provider: FILI EDWARDS Report Released Date/Time: May 02, 2024 04:26 PM Reporting Lab: [place] [address] [facility] [address] Performing Lab: [address] [address] GLUCOSE,BLOOD- poct (STL) 99 mg/dL 72-99 May 02, 2024 09:47 AM [facility] GLUCOSE,BLOOD-poct (STL) Specimen Type: BLOOD Comment: Test Performed by: [id number] Meter #: [id number] Ordering Provider: FILI EDWARDS Report Released Date/Time: May 02, 2024 10:02 AM Reporting Lab: [place] [address] [facility] [address] Performing Lab: [address] [address] GLUCOSE,BLOOD- poct (STL) 104 mg/dL H 72-99 Apr 22, 2024 10:25 AM [facility] COMPREHENSIVE METABOLIC PANEL Specimen Type: PLASMA Comment: K result may show a positive bias due to hemolysis. Specimen slightly hemolyzed. Ordering Provider: CHON COULTER Report Released Date/Time: Apr 22, 2024 10:03 AM Reporting Lab: [facility] [address] [place] [address] Performing Lab: [address] [address] CREATININE 0.93 mg/dL 0.7-1.3 UREA NITROGEN 10.6 [...] 85.6 >60 Apr 22, 2024 10:25 AM [facility] CBC Specimen Type: BLOOD No comment entered. Ordering Provider: CHON COULTER Report Released Date/Time: Apr 22, 2024 10:03 AM Reporting Lab: [facility] [address] [place] [address] Performing Lab: [address] [address] WBC 7.2 10*3/uL 3.6-11.2 RBC 5.52 10*6/uL [...] Source May 02, 2024 10:58 PM 7 [facility] May 02, 2024 09:30 PM 97.9 66 165/78 20 98 8 [facility] May 02, 2024 08:15 PM 4 [facility] May 02, 2024 07:15 PM 7 [facility] May 02, 2024 06:39 PM 7 [facility] Social History: [...] TOBACCO SCREEN NO [facility] Dec 31, 2021 03:07 [...] 18, 2002 11:17 AM TOBACCO USE [facility] Apr 07, 2002 02:25 PM CURRENT NON-TOBACC [...] 18, 2001 08:31 AM TOBACCO USE [facility] Advance Directives: All historical and current Section [...] CHEST X-RAY, 2 VIE WS: MAURILIO DUQUE [id number] -1950 Ex Date: APR 22, 2024@10:54 Req Phys: CHON COULTER Loc: [facility] PREOP EVAL 1 (Req'g Lo Img Loc: -MAIN RADIOLOGY SUITE Service: [facility], [facility] [address] [place] [address] (Case [id number] COMPLETE) CHEST X-RAY, 2 VIEWS (RAD Detailed) CPT:41450 Reason for Study: preop Clinical History: Report Status: Verified Date Reported: APR 22, 2024 Date Verified: APR 22, 2024 Flush Tester E-Sig:/ES/Jelani Parkinson MD Report: FINDINGS: The examination was compared with previous examination of September. Heart size is normal. Mediastinal structures appear unremarkable. Both lungs are fully expanded without evidence of pulmonary infiltrates or additional significant findings. Impression: No evidence of acute cardiopulmonary disease. Primary Interpreting Staff: Jelani Parkinson MD, Radiologist (Flush Tester) /JELANI PRITCHARD [facility] Pathology Reports: +/- [...] comes from all [place] treatment facilities. Date/Time Pathology Report Provider Source [...] specimen is for gross examination only. DIAGNOSIS: HAT BLOCKER, REMOVAL: - HAT BLOCKER, CONSISTENT WITH INFLATABLE PENILE PROSTHESIS RESERVOIR (IPP-RESERVOIR) (GROSS EXAMINATION ONLY) /radha/ IVAN CASTILLO M.D., PH.D. PATHOLOGIST Signed May 05, 2024@10:41 Performing Laboratory: Surgical Pathology Report [facility] CLIA# [id number] [address] [facility] [address] [place] [address] $FTR - - - - - - [...] - - MAURILIO DUQUE STANDARD FORM 515 ID:[id number] SEX:M :1950 AGE: 73 LOC:[facility] PCP: Natalio Bridges MD /radha/ IVAN CASTILLO M.D., PH.D. PATHOLOGIST Signed: 05/05/2024 10:41 IVAN CASTILLO [facility] Encounter Notes: All associated encounter notes This section contains the clinical notes associated to the Encounter. Date/Time Encounter Note(s) Provider Source May 02, 2024 04:04 PM ANESTHESIOLOGY CINDY WSHEET: LOCAL TITLE: ANES INTRA-OP FLOWSHEET ST STANDARD TITLE: ANESTHESIOLOGY FLOWSHEET DATE OF NOTE: MAY 02, 2024@16:04 ENTRY DATE: MAY 02, 2024@16:04:47 AUTHOR: EUGENIE GARCIA COSIGNER: URGENCY: STATUS: COMPLETED Patient: MAURILIO DUQUE SSN: [id number] Date of Operation: 05/02/2024 Surgery Start Time: 05/02/2024 13:49 Surgery End Time: 05/02/2024 15:45 Anesthesia Care Start: 05/02/2024 13:02 Anesthesia Care End: 05/02/2024 16:02 Anesthesia Method: General 05/02/2024 13:12 (Primary), Airway: Endotracheal Intubation, Technique: Direct Laryngoscopy, Level Of Consciousness: Sedated, Patient Position: Supine, Preoxygenated, Induction Type: Intravenous, Breathing Circuit: Marlin Adult, Ventilation by Mask: Easy to Ventilate [...] hernia repair with mesh Diagnosis: inguinal hernia Holding, Anesthesia, PACU Drugs: ------ Acetaminophen IVPB: 1 g Phenylephrine gtt: 3427.685 mcg FentaNYL: 150 mcg Lidocaine: 60 mg Propofol: 200 mg Sugammadex: 400 mg Rocuronium: 100 mg ceFAZolin: 2 g HYDROmorphone: 0.4 mg Ondansetron: 4 mg Glycopyrrolate: 0.4 mg DexmedeTOMidine: 4 mcg Holding, Anesthesia, PACU Fluids: ------- Urine Output: 120 ml Orogastric: 20 ml Ringers Lactated Solution: 1000 ml Resources: Aquacel foam placed on sarah prominence to protect skin during surgery Safety Belt Robot docked Insufflation abdomen Robot undocked Robot undocked Staff: --------- PALMA WASHBURN, SURGEON PALMA WASHBURN, ATT. SURGEON FILI EDWARDS, Holding Nurse MAURILIO CURRAN ANES. SUPER. BARNI, ANITA K, PRIN. ANES. BARNI, ANITA K, DOMENIC BRANNON, [facility] PARI MUTUEL TICKET CASHIER BRUNO MANUEL, Anesthesiologist Anesthesia Procedure: -- Procedure 05/02/2024 9:55 Line Number: 1, Level [...] insertion. Intermittent suction for rest of case. Procedure Date: 05/02/2024 Procedure Start Time: Procedure End Time: /radha/ EUGENIE GARCIA MS CRNA Signed: 05/02/2024 16:04 EUGENIE GARCIA [facility]
--- OUTSIDE RECORDS SUMMARY | 2024-11-02 11:56 | XMS_ITS ---
Author Name [facility] [place] Organization [facility] [place] [facility] [place] Address [address] [place] [address] Care Team Providers Care Freight Caller Name Role Phone NATALIO BRIDGES Primary [facility] Provider [facility] Insurance Providers: [...] PART B Oct 28, 2001 PART B [id number] [phone] Petra DUQUE PATIENT MEDICARE (WNR) MEDICARE (M) PART A Oct 28, 2001 PART A [id number] Petra DUQUE PATIENT MEDICARE (WNR) MEDICARE (M) PART A Oct 28, 2001 PART A [id number] Petra DUQUE PATIENT Selected Encounter This section includes the information on record at DC for the Encounter. Date/Time Encounter Type Encounter Description Reason Provider Source Jan 14, 2024 09:30 AM CARDIOVASCULAR STRESS TEST CARDIAC STRESS TEST ICD-10-CM I20.9 Angina pectoris, unspecified JUJU WILBURN [facility] Encounter Template Text not used by DC Assessments - Encounter Diagnoses This section includes the primary and secondary diagnoses documented for the Encounter. Date/Time Primary/Secondary Diagnosis Diagnosis Name Provider Source Jan 14, 2024 10:05 AM PRIMARY Angina pectoris, unspecified BREANNAMARBIN [facility] Plan of Treatment: Future Appointments (+ 6 months) and Future Tests (+/- 45 days) The Plan of Treatment section includes future care activities for the patient from all [facility] This section includes future appointments and future orders which are active, pending or scheduled. Future Appointments This section includes appointments that were scheduled to occur 6 months from the date of the Encounter, up to a maximum of 20 appointments. The data comes from all [place] treatment facilities. Appointment Date/Time Appointment Type Appointme nt Facility Name Jan 23, 2024 11:30 AM AMBULATORY - REHAB MEDICIN E [facility] Feb 11, 2024 10:00 AM AMBULATORY - SURGERY [facility] Feb 22, 2024 10:30 AM AMBULATORY - MEDICINE [facility] Feb 27, 2024 08:15 AM AMBULATORY - MEDICINE [facility] Mar 26, 2024 11:00 AM AMBULATORY - NONE . [facility] Mar 27, 2024 12:40 PM AMBULATORY - MEDICINE [facility] Apr 10, 2024 10:30 AM AMBULATORY - SURGERY [facility] Apr 22, 2024 10:00 AM AMBULATORY - SURGERY [facility] May 02, 2024 09:00 AM AMBULATORY - NONE [facility] May 06, 2024 03:30 PM AMBULATORY - MEDICINE [facility] May 19, 2024 11:00 AM AMBULATORY - MEDICINE [facility] May 22, 2024 09:30 AM AMBULATORY - SURGERY [facility] May 27, 2024 09:30 AM AMBULATORY - NONE [facility] Jul 11, 2024 02:00 PM AMBULATORY - NONE [facility] Active, Pending, and Scheduled Orders This section includes a listing of several types of active, pending, and scheduled orders, including clinic medications orders, diagnostic test orders, procedure orders and consult orders; where the start date of the order is 45 days before the date of the Encounter or 45 days after the date of theEncounter. The data comes from all [place] treatment facilities. Test Date/Time Test Type Test Details Facility Name Jan 15, 2024 12:00 AM Laboratory - Chemistry Order HGA 1C BLOOD SP [facility] Jan 15, 2024 12:00 AM Laboratory - Chemistry Order CBC BLOOD SP [facility] Lab Results: +/- 30 days of the encounter This section includes the Chemistry and Hematology Lab Results on record with DC for the patient. Radiology Reports and Pathology Reports are provided separately, in subsequent sections. Lab Results This section contains the Chemistry/Hematology Results that were resulted 30 days before or 30 daysafter the date of the Encounter. Date/Time Source Result Type Result - Unit Interpretation Reference Range Comment Jan 11, 2024 09:10 AM [facility] TSH W/ REFLEX FT4 (STL) Specimen Type: PLASMA Comment: K result may show a positive bias due to hemolysis. Specimen slightly hemolyzed. Ordering Provider: FERNANDO BRIDGES Report Released Date/Time: December 18, 2023 03:38 PM Reporting Lab: [facility] [address] [facility] [address] Performing Lab: [facility] [address] [facility] [address] TSH 2.309 u[IU]/mL 0.47-5 Jan 11, 2024 09:10 AM [facility] VITAMIN D, 25-HYDROXY Specimen Type: SERUM Comment: The listed sex of this patient may not be a typical indication for this test. Therefore, reference ranges or interpretive criteria listed may not be valid. Clinical correlation suggested. Ordering Provider: FERNANDO BRIDGES Report Released Date/Time: December 18, 2023 03:38 PM Reporting Lab: [facility] [address] [address] Performing Lab: [facility] [address] [facility] [address] VITAMIN D, 25-HYDROXY 61.0 ng/mL 30-96 Jan 11, 2024 09:10 AM [facility] LIPID PANEL (STL) Specimen Type: PLASMA Comment: K result may show a positive bias due to hemolysis. Specimen slightly hemolyzed. Ordering Provider: FERNANDO BRIDGES Report Released Date/Time: December 18, 2023 03:38 PM Reporting Lab: [facility] [address] [place] [phone] Performing Lab: [address] [address] CHOLESTEROL 182 mg/dL 0-200 TRIGLYCERIDE 222 mg/dL H 0-150 CALCULATED LDL 104 mg/dL HDL(New) 34 mg/dL L >40 Jan 11, 2024 09:10 AM [facility] MICRAL/CREAT PROFILE (STL) Specimen Type: URINE No comment entered. Ordering Provider: FERNANDO BRIDGES Report Released Date/Time: December 18, 2023 03:38 PM Reporting Lab: [address] [address] Performing Lab: [address] [address] URINE ALBUMIN (PB-STL) 12.4 mg/L uACR (STL) 6 mg/g 0-29 CREATININE URINE/OTHERS 193.2 mg/dL H 63-166 Jan 11, 2024 09:10 AM [facility] PROST. SPECIFIC AG.(PB-STL) Specimen Type: SERUM Comment: The listed sex of this patient may not be a typical indication for this test. Therefore, reference ranges or interpretive criteria listed may not be valid. Clinical correlation suggested. Ordering Provider: FERNANDO BRIDGES Report Released Date/Time: December 18, 2023 03:38 PM Reporting Lab: [address] [address] Performing Lab: [address] [place] [address] PROST. SPECIFIC AG.(PB-STL) 1.518 ng/mL 0-4 Jan 11, 2024 09:10 AM [facility] COMPREHENSIVE METABOLIC PANEL Specimen Type: PLASMA Comment: K result may show a positive bias due to hemolysis. Specimen slightly hemolyzed. Ordering Provider: FERNANDO BRIDGES Report Released Date/Time: December 18, 2023 03:38 PM Reporting Lab: [facility] [address] [facility] [address] Performing Lab: [facility] [address] [facility] [address] CREATININE 1.20 mg/dL 0.7-1.3 UREA NITROGEN 16.2 [...] U/L 8-40 EGFR (CKD-EPI 2020) 63.1 >60 Social History: Smoking Status (Most current) and Tobacco Use (All prior to encounter date) This section includes the most current, and the historical, smoking and tobacco- related health factors from the DC facility where the Encounter took place. Current Smoking Status This section includes the most current smoking, or tobacco-related health factor, from the DC facility where the Encounter took place. Date/Time Current Smoking Status Comment Tristan ity Oct 17, 2023 04:53 PM ORYX ADMIT TOBACCO SCREEN NO [facility] Tobacco Use History This section includes a history of the smoking, or tobacco-related health factors, that were collected on or before the date of the Encounter. The data comes from the DC facility where the Encounter took place. Date/Time Smoking Status/Tobacco Use Comment F acility Oct 17, 2023 03:00 PM ORYX ADMIT TOBACCO SCREEN NO [facility] Dec 31, 2021 03:07 PM ORYX ADMIT TOBACCO SCREEN NO [facility] Apr 06, 2017 11:33 PM QUIT TOBACCO >7 YEARS AGO [facility] Mar 21, 2017 04:29 AM QUIT TOBACCO >7 YEARS AGO [facility] Jan 20, 2014 09:56 AM QUIT TOBACCO >7 YEARS AGO [facility] Jan 02, 2013 01:23 PM QUIT TOBACCO >7 YEARS AGO [facility] May 25, 2010 01:35 PM LIFETIME NON-USER OF TOBACCO [facility] Aug 17, 2009 01:04 PM QUIT TOBACCO >12 M O & <7 YRS AGO [facility] Sep 17, 2008 01:34 PM QUIT TOBACCO >12 M O & <7 YRS AGO [facility] Sep 20, 2006 10:57 AM QUIT TOBACCO >12 M O & <7 YRS AGO [facility] Jun 05, 2006 10:49 AM CURRENT NON-TOBACC O USER-HX OF USE [facility] Jun 05, 2006 10:49 AM TOBACCO TERMINATION STAGE [facility] Jul 14, 2005 11:00 AM CURRENT NON-TOBACC O USER-HX OF USE [facility] Jul 14, 2005 11:00 AM TOBACCO TERMINATION STAGE [facility] Oct 23, 2004 04:56 PM CURRENT NON-TOBACC O USER-HX OF USE [facility] Oct 23, 2004 04:56 PM TOBACCO ACTION STAGE [facility] Apr 07, 2004 10:58 AM CURRENT NON-TOBACC O USER-HX OF USE [facility] Apr 07, 2004 10:58 AM TOBACCO MAINTENANCE STAGE [facility] December 18, 2002 11:17 AM CURRENT TOBACCO USER [facility] December 18, 2002 11:17 AM TOBACCO USE [facility] Apr 07, 2002 02:25 PM CURRENT NON-TOBACC O USER-RECENTLY QUIT quit 3 mo ago [facility] Apr 07, 2002 02:25 PM TOBACCO USE quit 3 mo ago [facility] Nov 19, 2001 10:50 AM CURRENT TOBACCO USER [facility] Jul 16, 2001 08:35 AM CURRENT TOBACCO USER [facility] Jun 18, 2001 08:31 AM CURRENT TOBACCO USER [facility] Jun 18, 2001 08:31 AM TOBACCO USE [facility] Advance Directives: All historical and current Section Date Range: From patient's date of to the date document was created. This section includes ALL of a patient's completed or amended DC Advance and Rescinded Directives. The entries below indicate that a directive exists for the patient, but an actual copy is not included with this document. The data comes from all [place] facilities. Date Advance Directives Provider Source Feb 18, 2018 ADVANCE DIRECTIVE DISCUSSION EMMETT CAMILO [facility] Radiology Reports: +/- 30 [...] the Encounter. The data comes from all [place] treatment facilities. Date/Time Radiology Report Provider Source Jan 14, 2024 07:59 AM NM MYOCARDIAL P SP ECT STRESS/REST-P: MAURILIO DUQUESSE [id number] -[id number] M Exm Date: JAN 14, 2024@07:59 Req Phys: JEANNETTE PEÑA Pat Loc: [facility] (Req'g Img Loc: -NUCLEAR MEDICINE Service: [facility] [address] [place] [address] (Case 180 COMPLETE) NM MYOCARDIAL PERF SPECT STRESS/R(NM Detailed) CPT:19181 Reason for Study: CHEST PAIN (Case 181 COMPLETE) TC-99M TETROFOSMIN (MYOVIEW) (NM Detailed) CPT:A9502 (Case 182 COMPLETE) TC-99M TETROFOSMIN (MYOVIEW), PE(NM Detailed) CPT:A9502 (Case 183 COMPLETE) NON-HEU TC-99M ADD-ON PER STUDY D(NM Detailed) CPT:Q9969 (Case 347 COMPLETE) REGADENOSON INJECTION (NM Detailed) CPT:J2785 Clinical History: CHEST PAIN Report Status: Verified Date Reported: JAN 14, 2024 Date Verified: JAN 14, 2024 Quality Assurance Supervisor E-Sig:/ES/Bill Fox MD,PhD Report: PATIENT NAME: MAURILIO DUQUE CASE #: [id number], [id number], [id number], [id number], [id number] EXAMINATION: Rest/Lexiscan Stress Gated SPECT Myocardial Imaging [...] code: 1000. Dictated by Britton Chacon DO (president practicing urologist) Bill Petit, have reviewed the images and report and concur with these findings. Primary Interpreting Staff: Bill Fox MD,PhD, Nuclear Medicine Physician (Quality Assurance Supervisor) Primary Interpreting Resident: BRITTON CHACON, president practicing urologist /BILL SAVAGE [facility] Jan 01, 2024 09:[address] THORAX, DIAGNOS TIC W/O CONTRAST: MAURILIO DUQUE [id number] -[id number] M Exm Date: JAN 01, 2024@09:49 Req Phys: JENNIFER PALACIO Loc: [facility]PULMON[facility] (Req'cora Tracy Img Loc: [facility]-CT IMAGING [facility] Service: Unknown [facility], [facility] [address] [place] [address] (Case 1414 COMPLETE) CT THORAX, DIAGNOSTIC W/O CONTRAS(CT Detailed) CPT:34305 Reason for Study: RUL PNA cleared??? Clinical History: Responsible Attending: Haylie Attending Contact Number: [phone] Resident Contact Number: Allergies listed in CPRS chart: LISINOPRIL, FENTANYL, COCONUTS Creatinine: CREATININE 0.91 mg/dL 10/19/2023 06:00 /eGFR: STL EGFR (within one year). CREATININE 0.91 mg/dL (10/19/23 06:00) Wt: 216.1 lb [98.02 kg] (11/14/2023 09:07) History of: Renal failure, chronic or acute renal disease: NO Report Status: Verified Date Reported: JAN 01, 2024 Date Verified: JAN 01, 2024 Quality Assurance Supervisor E-Sig:/ES/Pooja Plasencia MD Report: CASE #: [id number] DATE:01/01/2024 10:39 AM CLINICAL HISTORY:RUL PNA cleared??? [...] Primary Interpreting Staff: Pooja Plasencia MD, Radiologist (Quality Assurance Supervisor) /POOJA WHEELER [facility] Encounter Notes: All associated encounter notes This section contains the clinical notes associated to the Encounter. Date/Time Encounter Note(s) Provider Source Jan 14, 2024 09:57 AM CARDIOLOGY PROCEDURE NOTE: LOCAL TITLE: CARDIOLOGY PROCEDURE REPORT STL STANDARD TITLE: CARDIOLOGY PROCEDURE NOTE DATE OF NOTE: JAN 14, 2024@09:57 ENTRY DATE: JAN 14, 2024@09:58:07 AUTHOR: REG ZIMMERMAN EXP COSIGNER: URGENCY: STATUS: COMPLETED STRESS TEST PROCEDURE NOTE Patient brought into the stress lab and prepped for the stress test at 0932 Baseline ECG obtained and given to Dr Bryant for review Lexiscan injected by Dr. Bryant Aminophylline given : N Complications: NONE Stress ECG transferred to Disc[employer] system: Y Stress ECG given to Dr. Bryant for review at the end of the test Patient discharged from stress lab in stable condition See MD note for further details. /radha/ REG ZIMMERMAN [facility] Stress Telephone Betting Clerk Signed: 01/14/2024 09:58 REG ZIMMERMAN [facility] Jan 14, 2024 09:44 AM CARDIOLOGY DIAGNOSTIC STUDY NOTE: LOCAL TITLE: STRESS TEST PROCEDURE STANDARD TITLE: CARDIOLOGY DIAGNOSTIC STUDY NOTE DATE OF NOTE: JAN 14, 2024@09:44 ENTRY DATE: JAN 14, 2024@09:45:03 AUTHOR: MARBIN BRYANT EXP COSIGNER: JUJU WILBURN URGENCY: STATUS: COMPLETED STRESS TEST PROCEDURE Has ADDENDA STRESS TEST PROCEDURE NOTE Reason for consult: Chest pain Referring provider: JEANNETTE PEÑA Patient's chart reviewed. History taken from the patient. HISTORY OF PRESENT ILLNESS This is 73 year old male with a past medical history of HTN, HLD, COPD, DMT2, GERD. He is here for a stress test for evaluation of chest pain. Patient reports he has been experiencing central chest pressure and tightening over the last few months. Episodes occur a few times a week and last for a few seconds at a time. He has associated shortness of breath. This chest pressure has woken him up from sleep. He states he had a stress test many years ago and it was normal. He has a hernia that is planned for surgical correction in February, and he is not sure if he will be able to walk on the treadmill because of pain and discomfort from the hernia. Today he denies any chest pain, dyspnea on exertion, light headedness/dizziness with exertion, orthopnea, PND, or lower extremity edema. LDL 104, HbA1C 5.8, TSH 2.3 OTHER HISTORY FAMILY HISTORY: No premature coronary disease or sudden SOCIAL HISTORY: TOBACCO USE - No ALCOHOL USE - No COCAINE - No OTHER DRUGS - No PAST MEDICAL HISTORY 1) Benign essential hypertension (SNOMED CT 7815853) 2) Left trigeminal neuralgia (SNOMED CT 14858163897098831) 3) GERD - Gastro-esophageal reflux disease (SNOMED CT 680636784) 4) Chronic obstructive lung disease (SNOMED CT 30866940) 5) LBP - Low back pain (SNOMED CT 073130522) 6) Knee pain (SNOMED CT 03585851) 7) Chest pain 8) Hip joint pain 9) Candidiasis of the esophagus 10) Parotitis 11) Cervicalgia 12) Long-term current use of opiate analgesic drug 13) Diabetes Mellitus Type 2 (SCT 38821524) 14) Inguinal hernia 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 DO NOT TAKE WITH OXYCODONE 10) METFORMIN HCL 1000MG TAB TAKE ONE TABLET BY MOUTH ACTIVE TWICE A DAY WITH MEALS FOR BLOOD SUGAR CONTROL. AVOID ALCOHOL. DISCONTINUE BEFORE GETTING XRAY DYE. 11) PANTOPRAZOLE NA 40MG EC TAB TAKE ONE TABLET BY MOUTH ACTIVE TWO TIMES A DAY BEFORE MEALS TO LOWER STOMACH ACID - TAKE 30 MINUTES BEFORE MEAL(S) 12) POLYETHYLENE GLYCOL 3350 ORAL PWDR MIX AND DRINK 1 ACTIVE CAPFUL BY MOUTH ONCE A DAY FOR CONSTIPATION (MEASURE WITH CAP AND MIX IN 8 OZ OF WATER) 13) PREGABALIN 200MG ORAL CAP TAKE ONE CAPSULE BY MOUTH ACTIVE THREE TIMES A DAY FOR NERVE PAIN 14) PSYLLIUM ORAL PWD MIX AND DRINK 1 TEASPOONFUL BY ACTIVE MOUTH ONCE A DAY FOR FIBER SUPPLEMENTATION MIX IN GLASS OF WATER/JUICE. FLAVOR SUBSTITUTIONS MAY/WILL OCCUR AND SPECIFIC VARIETIES WILL NOT BE PROVIDED. 15) SODIUM FLUORIDE 1.1% TOOTHPASTE USE DIRECTED BY ACTIVE MOUTH ONCE A DAY TOOTHPASTE (DO NOT SWALLOW) 16) TAMSULOSIN HCL 0.4MG CAP TAKE ONE CAPSULE BY MOUTH ACTIVE EVERY EVENING APPROXIMATELY 30 MINUTES AFTER THE SAME MEAL EACH DAY 17) TOPIRAMATE 50MG TAB TAKE ONE TABLET BY MOUTH TWICE A ACTIVE DAY FOR SEIZURES OR MIGRAINE PROPHYLAXIS 18) VALSARTAN 320MG TAB TAKE ONE TABLET BY MOUTH ONCE A ACTIVE (S) DAY TO LOWER BLOOD PRESSURE Allergy: LISINOPRIL, FENTANYL, COCONUTS REVIEW OF SYSTEMS Review of systems: All 14 systems reviewed are negative except for HPI. OBJECTIVE/DATA Temperature: 97.7 F [36.5 C] (01/03/2024 09:54) BP: 155/75 (01/03/2024 09:54) Pulse: 73 (01/03/2024 09:54) Resp: 20 (01/03/2024 09:54) Height: 74 in [188.0 cm] (01/03/2024 09:54) Weight:220.7 lb [100.11 kg] (01/03/2024 09:54) PHYSICAL EXAM General: No acute distress Heart: Regular rate and rhythm, normal S1 S2, no murmurs, rubs or gallops Lungs: Clear to auscultation bilaterally, no crackles or wheezing Abdomen: soft Extremities: 1+ pitting edema bilateral lower extremities Skin: No visible rashes Neurological/Psychiatric: Alert. Normal affect and mood. Grossly moving all 4 extremities DIAGNOSTIC DATA CBC WBC: 8.4 10*3/uL (11/30/23 13:10) RBC: 6.08 10*6/uL H (11/30/23 13:10) HGB 16.8 g/dL 11/30/2023 13:10 HCT: 51.7 % H (11/30/23 13:10) PLT 234 10*3/uL 11/30/2023 13:10 Chem 7 GLUCOSE 136 H mg/dL 01/11/2024 09:10 BUN: 16.2 mg/dL (01/11/24 09:10) CREATININE 1.20 mg/dL 01/11/2024 09:10 SODIUM 138 mEq/L 01/11/2024 09:10 POTASSIUM 4.4 mEq/L 01/11/2024 09:10 CHLORIDE 105 mEq/L (01/11/24 09:10) CARBON DIOXIDE 21 L mEq/L 01/11/2024 09:10 ASSESSMENT AND PLAN Pt with RF and no current angina equivalent. Will proceed with stress test. Pharmacologic Stress Test PHARMACOLOGICAl AGENT: Regadenason RESULTS OF PHARMACOLOGIC STRESS ECG CHANGES DURING/AFTER PHARMACOLOGIC STRESS TEST: None DYSRHYTHMIAS: None BP RESPONSES Baseline BP: 175/80 BP during infusion: 169/72 MANIFESTATIONS OF MEDICATION ADMINISTRATION: Shortness of breath. Resolved in recovery. REASON FOR STOPPING: Protocol Completed Reversal agent given: Y (caffeine) SUMMARY Non-ischemic EKG with pharmacological stress test Imaging stress report to follow CONCLUSIONS - Elevated BP at baseline. - Nuclear imaging report to follow. - Stress ECG portion results discussed with the patient. - Patient was informed that a negative/non-ischemic ECG stress test does not exclude presence of coronary atherosclerosis, particularly non-obstructive coronary stenoses. - Furthermore, the significance of non-obstructive coronary stenoses/plaques, and the potential consequences of vulnerable atherosclerotic plaques prone to rupture, likely giving rise to coronary thrombotic occlusion and ACS/OK were elaborated. - Discussed watching for warning signs during physical activity such as chest pain, severe shortness of breath or severe exhaustion and to seek urgent medical attention if these occur. - Patient's questions and concerns addressed. Marbin Bryant MD Cardiovascular Diseases Fellow PGY-4 /radha/ MARBIN BRYANT MD QUICK SERVICE TECHNICIAN Signed: 01/14/2024 10:05 /radha/ Juju Wilburn MD, FACC, FACP STAFF PHYSICIAN - Cardiology Cosigned: 01/14/2024 23:59 01/14/2024 ADDENDUM STATUS: COMPLETED I saw, interviewed and examined the patient on 01/14/2024, and I have reviewed the patient's pertinent notes, diagnostic studies,and medications in his Electronic Medical Records. I reviewed the stress test data with the [employer] Electrical Person, Dr. BRYANT on that date and I concur with her assessment, as well as interpretation of the stress test that we formulated based on the pertinent available data. with the following further clarifications: I. Exercise Stress Test: was not performed because of painful inguinal hernia The results of the stress test were discussed with the patient. The patient was informed that a NON-ischemic ECG or other imaging stress tests do not exclude presence of coronary atherosclerosis, particularly non-obstructive CAD (in layman's terms). The patient was also advised that occasionally these mild stenoses may develop erosion/crack/rupture resulting in coronary thrombosis and heart attack (ALL in layman's terms). The veterans's questions and concerns were addressed. He acknowledged understanding of the concerns discussed. The [place] left the Stress Test Lab in stable condition with NO symptoms. Thank you for your referral and allowing us to participate in care of your patient. 56 minutes were spent interviewing the patient, reviewing the stress test data, discussing the results and implications of findings as well as exercise and physical activity counseling; /es/ Juju Wilburn MD, FACC, FACP STAFF PHYSICIAN - Cardiology Signed: 01/15/2024 00:00 [facility]
--- OUTSIDE RECORDS SUMMARY | 2024-11-02 11:56 | XMS_ITS | Encounter Summary ---
Author Name [facility] [place] Address [address] [place] [address] Care Team Providers Care Field Artillery Fire Control Man Name Role Phone NATALIO BRIDGES Primary Care [...] PART B Oct 28, 2001 PART B [id number] Petra DUQUE PATIENT MEDICARE (WNR) MEDICARE (M) PART A Oct 28, 2001 PART A [id number] Petra DUQUE PATIENT MEDICARE (WNR) MEDICARE (M) PART A Oct 28, 2001 PART A [id number] Petra DUQUE PATIENT Selected Encounter This section includes the information on record at [place] for the Encounter. Date/Time Encounter Type Encounter Description Reason Provider Source May 03, 2024 07:29 AM OFFICE O/P EST LOW 20 MIN GENERAL SURGERY ICD-10-CM K40.90 Unil inguinal hernia, w/o obst or gangr, not spcf as recur CRISPIN CERVANTES IHErnie Encounter Template Text not used by [place] Assessments - Encounter Diagnoses This section includes the primary and secondary diagnoses documented for the Encounter. Date/Time Primary/Secondary Diagnosis Diagnosis Name Provider Source May 03, 2024 07:43 AM PRIMARY Unil inguinal hernia, w/o obst or gangr, not spcf as recur NEW SARMIENTO [facility] Plan of Treatment: Future Appointments (+ 6 months) and Future Tests (+/- 45 days) The Plan of Treatment section includes future care activities for the patient from all [place] [facility]. This section includes future appointments and future orders which are active, pending or scheduled. Future Appointments This section includes appointments that were scheduled to occur 6 months from the date of the Encounter, up to a maximum of 20 appointments. The data comes from all [place] treatment facilities. Appointment Date/Time Appointment Type Appointme nt Facility Name May 06, 2024 03:30 PM AMBULATORY - MEDICINE [facility] May 19, 2024 11:00 AM AMBULATORY - MEDICINE [facility] May 22, 2024 09:30 AM AMBULATORY - SURGERY [facility] May 27, 2024 09:30 AM AMBULATORY - NONE [facility] Jul 11, 2024 02:00 PM AMBULATORY - NONE [facility] Aug 07, 2024 07:30 AM AMBULATORY - NONE [facility] Aug 15, 2024 10:30 AM AMBULATORY - MEDICINE [facility] Sep 04, 2024 01:30 PM AMBULATORY - MEDICINE [facility] Sep 05, 2024 10:00 AM AMBULATORY - NONE [facility] Sep 18, 2024 12:20 PM AMBULATORY - MEDICINE [facility] Sep 22, 2024 11:30 AM AMBULATORY - NONE [facility] Oct 27, 2024 11:15 AM AMBULATORY - MEDICINE [facility] Lab Results: +/- 30 days of the [...] Range Comment May 03, 2024 06:[address] [facility] GLUCOSE,BLOOD-poct (STL) Specimen Type: BLOOD Comment: Test Performed by: [id number] Meter #: [id number] Ordering Provider: PALMA WASHBURN III Report Released Date/Time: May 03, 2024 06:30 AM Reporting Lab: [address] [address] Performing Lab: [address] [address] GLUCOSE,BLOOD- poct (STL) 107 mg/dL H 72-99 May 02, 2024 09:[address] [facility] GLUCOSE,BLOOD-poct (STL) Specimen Type: BLOOD Comment: Test Performed by: [id number] Meter #: [id number] Ordering Provider: PALMA WASHBURN III Report Released Date/Time: May 02, 2024 10:39 PM Reporting Lab: [address] [address] Performing Lab: [address] [address] GLUCOSE,BLOOD- poct (STL) 122 mg/dL H 72-99 May 02, 2024 07:[address] [facility] MRSA SURVL NARES DNA Specimen Type: NARES [...] May 02, 2024 07:37 PM Reporting Lab: [address] [address] Performing Lab: [address] [address] MRSA SURVL NARES DNA Negative Negative May 02, 2024 06:[address] [facility] GLUCOSE,BLOOD-poct (STL) Specimen Type: BLOOD Comment: Test Performed by: [id number] Meter #: [id number] Ordering Provider: PALMA WASHBURN III Report Released Date/Time: May 02, 2024 06:47 PM Reporting Lab: [address] [address] Performing Lab: [address] [address] GLUCOSE,BLOOD- poct (STL) 107 mg/dL H 72-99 May 02, 2024 04:[address] [facility] GLUCOSE,BLOOD-poct (STL) Specimen Type: BLOOD Comment: Test Performed by: [id number] Meter #: [id number] Ordering Provider: FILI EDWARDS Report Released Date/Time: May 02, 2024 04:26 PM Reporting Lab: [address] [address] Performing Lab: [address] [address] GLUCOSE,BLOOD- poct (STL) 99 mg/dL 72-99 May 02, 2024 09:[address] [facility] GLUCOSE,BLOOD-poct (STL) Specimen Type: BLOOD Comment: Test Performed by: [id number] Meter #: [id number] Ordering Provider: FILI EDWARDS Report Released Date/Time: May 02, 2024 10:02 AM Reporting Lab: [address] [address] Performing Lab: [facility] [address] [facility] [address] GLUCOSE,BLOOD- poct (STL) 104 mg/dL H 72-99 Apr 22, 2024 10:[address] [facility] COMPREHENSIVE METABOLIC PANEL Specimen Type: PLASMA Comment: K result may show a positive bias due to hemolysis. Specimen slightly hemolyzed. Ordering Provider: CHON COULTER Report Released Date/Time: Apr 22, 2024 10:03 AM Reporting Lab: [facility] [address] [facility] [address] Performing Lab: [place] [address] [facility] [address] CREATININE 0.93 mg/dL 0.7-1.3 UREA NITROGEN 10.6 [...] 85.6 >60 Apr 22, 2024 10:[address] [facility] CBC Specimen Type: BLOOD No comment entered. Ordering Provider: CHON COULTER Report Released Date/Time: Apr 22, 2024 10:03 AM Reporting Lab: [facility] [address] [facility] [address] Performing Lab: [address] [address] WBC 7.2 10*3/uL 3.6-11.2 RBC 5.52 10*6/uL [...] Height Weight Body Mass Index Source May 03, 2024 09:07 AM 97.5 65 136/77 20 92 0 [facility] May 03, 2024 08:45 AM 0 [facility] May 03, 2024 05:35 AM 0 [facility] May 03, 2024 05:25 AM 98.2 63 134/68 20 94 0 210.1 27 [facility] Social History: Smoking Status (Most current) and Tobacco Use (All prior to encounter date) This section includes the most current, and the historical, smoking and tobacco- related health factors from the [place] facility where the Encounter took place. Current Smoking Status This section includes the most current smoking, or tobacco-related health factor, from the [place] facility where the Encounter took place. Date/Time Current Smoking Status Comment Tristan pastrana Oct 17, 2023 04:53 PM ORYX ADMIT TOBACCO SCREEN NO [facility] Tobacco Use History This section includes a history of the smoking, or tobacco-related health factors, that were collected on or before the date of the Encounter. The data comes from the [place] facility where the Encounter took place. Date/Time Smoking Status/Tobacco Use Comment F acility Oct 17, 2023 03:00 PM ORYX ADMIT TOBACCO SCREEN NO [facility] Dec 31, 2021 03:07 PM ORYX ADMIT TOBACCO SCREEN NO [facility] Apr 06, 2017 11:33 PM QUIT TOBACCO >7 YEARS AGO [facility] Mar 21, 2017 04:29 AM QUIT TOBACCO >7 YEARS AGO [facility] Jan 20, 2014 09:56 AM QUIT TOBACCO >7 YEARS AGO [facility] Jan 02, 2013 01:23 PM QUIT TOBACCO >7 YEARS AGO [facility] May 25, 2010 01:35 PM LIFETIME NON-USER OF TOBACCO [facility] Aug 17, 2009 01:04 PM QUIT TOBACCO >12 M O & <7 YRS AGO [facility] Sep 17, 2008 01:34 PM QUIT TOBACCO >12 M O & <7 YRS AGO [facility] Sep 20, 2006 10:57 AM QUIT TOBACCO >12 M O & <7 YRS AGO [facility] Jun 05, 2006 10:49 AM CURRENT NON-TOBACC O USER-HX OF USE [facility] Jun 05, 2006 10:49 AM TOBACCO TERMINATION STAGE [facility] Jul 14, 2005 11:00 AM CURRENT NON-TOBACC O USER-HX OF USE [facility] Jul 14, 2005 11:00 AM TOBACCO TERMINATION STAGE [facility] Oct 23, 2004 04:56 PM CURRENT NON-TOBACC O USER-HX OF USE [facility] Oct 23, 2004 04:56 PM TOBACCO ACTION STAGE [facility] Apr 07, 2004 10:58 AM CURRENT NON-TOBACC O USER-HX OF USE [facility] Apr 07, 2004 10:58 AM TOBACCO MAINTENANCE STAGE [facility] December 18, 2002 11:17 AM CURRENT TOBACCO USER [facility] December 18, 2002 11:17 AM TOBACCO USE [facility] Apr 07, 2002 02:25 PM CURRENT NON-TOBACC O USER-RECENTLY QUIT quit 3 mo ago [facility] Apr 07, 2002 02:25 PM TOBACCO USE quit 3 mo ago [facility] Nov 19, 2001 10:50 AM CURRENT TOBACCO USER [facility] Jul 16, 2001 08:35 AM CURRENT TOBACCO USER [facility] Jun 18, 2001 08:31 AM CURRENT TOBACCO USER [facility] Jun 18, 2001 08:31 AM TOBACCO USE [facility] Advance Directives: All historical and current Section Date Range: From patient's date of to the date document was created. This section includes ALL of a patient's completed or amended [place] Advance and Rescinded Directives. The entries below indicate that a directive exists for the patient, but an actual copy is not included with this document. The data comes from all [place] facilities. Date Advance Directives Provider Source Feb 18, 2018 ADVANCE DIRECTIVE DISCUSSION EMMETT CAMILO [facility] Radiology Reports: +/- 30 days of the [...] the Encounter. The data comes from all [place] treatment facilities. Date/Time Radiology Report Provider Source Apr 22, 2024 10:54 AM CHEST X-RAY, 2 VIE WS: MAURILIO DUQUE [id number] -[id number] M Exm Date: APR 22, 2024@10:54 Req Phys: CHON COULTER Loc: [facility] PREOP EVAL 1 (Req'g Lo Img Loc: [facility] RADIOLOGY SUITE Service: [facility], [address] [place] [address] (Case [id number] COMPLETE) CHEST X-RAY, 2 VIEWS (RAD Detailed) CPT:41230 Reason for Study: preop Clinical History: Report Status: Verified Date Reported: APR 22, 2024 Date Verified: APR 22, 2024 Principal Technical Architect E-Sig:/ES/Jelani Luong MD Report: FINDINGS: The examination was compared with previous examination of September. Heart size is normal. Mediastinal structures appear unremarkable. Both lungs are fully expanded without evidence of pulmonary infiltrates or additional significant findings. Impression: No evidence of acute cardiopulmonary disease. Primary Interpreting Staff: Jelani Luong MD, Radiologist (Henri) /QMB JELANI LUONG [facility] Pathology Reports: +/- 30 [...] the Encounter. The data comes from all [place] treatment facilities. Date/Time Pathology Report Provider Source [...] - Specimen (Received May 05, 2024 09:21): ShannanDominic HERNANDEZ RESEVOIR (GROSS) - - - - - - - [...] specimen is for gross examination only. DIAGNOSIS: DESIGN SUPERVISOR, REMOVAL: - DESIGN SUPERVISOR, CONSISTENT WITH INFLATABLE PENILE PROSTHESIS RESERVOIR (IPP-RESERVOIR) (GROSS EXAMINATION ONLY) /bhupendra CASTILLO M.D., PH.D. PATHOLOGIST Signed May 05, 2024@10:41 Performing Laboratory: Surgical Pathology Report Performed By: [facility]# [id number] [address] [place] [phone] $FTR - - - - - - [...] - - MAURILIO DUQUE STANDARD FORM 515 ID:[id number] SEX:M :1950 AGE: 73 LOC:[facility] FEE PCP: Natalio Bridges MD /bhupendra CASTILLO M.D., PH.D. PATHOLOGIST Signed: 05/05/2024 10:41 IVAN CASTILLO [facility] Encounter Notes: All associated encounter notes This section contains the clinical notes associated to the Encounter. Date/Time Encounter Note(s) Provider Source May 03, 2024 07:29 AM PHYSICIAN EDUCATIO N DISCHARGE NOTE: LOCAL TITLE: DISCHARGE INSTRUCTIONS RUST STANDARD TITLE: PHYSICIAN EDUCATION DISCHARGE NOTE DATE OF NOTE: MAY 03, 2024@07:29 ENTRY DATE: MAY 03, 2024@07:35:16 AUTHOR: NEW SARMIENTO EXP COSIGNER: CRISPIN CERVANTES URGENCY: STATUS: COMPLETED MAY 03, 2024 DIAGNOSES: Fourth recurrence of right inguinal hernia PROCEDURES: Robotic right inguinal hernia repair 2. FUTURE APPOINTMENT(S): *To reschedule [facility] appointments call and use ext [phone] Please follow up with Vascular/General Surgery in clinic, you will be contacted regarding your appointment. 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 Please refer to Appointment Mgmt.listing for any additional patient appointments 3. DISCHARGE MEDICATIONS: Active Outpatient Medications (including Supplies): Active Outpatient Medications Status ===== 1) ALBUTEROL 90MCG (CFC-F) 200D ORAL [...] LOWER BLOOD PRESSURE Pending Outpatient Medications Status ===== 1) ACETAMINOPHEN 325MG TAB TAKE TWO TABLETS [...] 8 OZ OF WATER) 24 Total Medications NEW MEDICATIONS (and indicatons): Tylenol, Motrin, Oxycodone, Miralax The following changes were made to the medications you were taking prior to this hospitalization: None These medications have been stopped during your hospitalization (and reason why): None At your next appointment, please remember to bring all of your medication bottles with you Medication Reconciliation: I have discussed active and pending medications with the patient and/or animal caretaker supervisor. I have made changes as appropriate. 4. DISCHARGE INTRUCTIONAL MATERIALS 5. WOUND MANAGEMENT: OK to shower as usual, remove clear bandages and gauze over your incisions. Do not remove the skin tape, they will fall off in about 2 weeks. Allow warm soapy water to run over the taped incisions. Pat dry. No need to cover with dressing. 6. DISCHARGE DIETARY INSTRUCTIONS: Ok to resume previous diet. 7. DISCHARGE PHYSICAL ACTIVITY INSTRUCTIONS: Please do not lift anything more than 10 pounds for 6 weeks. Youre activity will be limited for several weeks, this will be further discussed in clinic. OK to walk and climb stairs. 8. OTHER (Include employment status): If you need [facility] paperwork signed please contact Татьяна Kurtz [phone]. 9. WORSENING and/or DANGEROUS SYMPTOMS TO REPORT If you experience fever, increased pain, spreading redness around your incision sites, nausea, vomiting or purulent drainage from your wounds or shortness of breath please call [phone] or return to the ED. Specialist Information: If you would like to contact unit II surgery, please call Татьяна Kurtz during regular business hours at . Follow-up with your Primary Care Physician or Specialist or call [facility] Helpline: [phone] /bhupendra SARMIENTO Resident Physician Signed: 05/03/2024 07:43 /radha/ CRSIPIN CERVANTES MD Staff Physician, General Surgery I Cosigned: 05/03/2024 09:09 [facility] May 02, 2024 03:40 PM OPERATIVE NOTE: LOCAL TITLE: BRIEF OP NOTE STL STANDARD TITLE: OPERATIVE NOTE DATE OF NOTE: MAY 02, 2024@15:40 ENTRY DATE: MAY 03, 2024@07:45:40 AUTHOR: NEW SARMIENTO COSIGNER: PALMA WASHBURN III URGENCY: STATUS: COMPLETED Date of Surgery:Apr Surgery Case #:[id number] Pre-Operative Diagnosis:Recurrent right inguinal hernia, removal of Post-Operative Diagnosis:Same Surgery Performed:Robotic right inguinal hernia repair, removal of IPP resevior Attending:Palma Washburn MD Surgeon:New Sarmiento MD 1st Aboriginal Education Teacher:Carri Hardy MD Type of Anesthesia:General Specimens:Yes If yes, Type and number of specimens: IPP resevior Findings: 1. Right direct inguinal hernia 2. IPP resevior free floating in abdomen Complications:None Estimated Blood Loss:Minimal Blood Given? No If yes, how much? Fluid Replacement:See anesthe Status En-Route to PACU? Critical: No Satisfactory: Yes Operative Note Dictation Job#: /radha/ NEW SARMIENTO Resident Physician Signed: 05/03/2024 08:04 /radha/ Palma Washburn III, MD [facility] General Surgery Attending Cosigned: 05/05/2024 19:17 [facility]O [facility]
--- OUTSIDE RECORDS SUMMARY | 2024-11-02 11:56 | XMS_ITS | Encounter Summary ---
Author Organization [facility] Address [address] [place] [address] Phone Care Team Providers Care Vp Mobile Products Name Role Phone Juan Arzola MD Primary Care Provider [phone] Encounter Details Date Type Department Care Team (Late st Contact Info) Description 08/07/[address] 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
--- OUTSIDE RECORDS SUMMARY | 2024-11-02 11:56 | XMS_ITS | Clinical Summary ---
Author Organization [facility] Address [address] [place] [address] Phone Care Team Providers Care Ball Point Splitter Name Role Phone Unavailable Primary Care Provider [...] Comments Blood Pressure 133/70 09/12/2022 3:56 PM TURF KEEPER Pulse - - Temperature - - Respiratory Rate 18 08/15/2022 10:29 AM TURF KEEPER Oxygen Saturation - - Inhaled Oxygen Concentration [...] Sig/CT Colonography Q 5 years Discontinued Insurance [facility] OFFICE OF COMMUNITY CARE [facility] [address] [place] [address] [employer]
--- OUTSIDE RECORDS SUMMARY | 2024-11-02 11:56 | XMS_ITS ---
Author Name [facility] [place] [facility] [place] Address [address] [place] [address] Care Team Providers Care Cigar Bander Name Role Phone NATALIO BRIDGES Primary Care [...] PART B Oct 28, 2001 PART B [id number] [phone] Petra DUQUE PATIENT MEDICARE (WNR) MEDICARE (M) PART A Oct 28, 2001 PART A [id number] [phone] Petra DUQUE PATIENT MEDICARE (WNR) MEDICARE (M) PART A Oct 28, 2001 PART A [id number] [phone] Petra DUQUE PATIENT Selected Encounter This section includes the information on record at [place] for the Encounter. Date/Time Encounter Type Encounter Description Reason Provider Source Feb 23, 2024 10:37 AM Outpatient Encounter ADMIN PAULA WILDE (EMILIANO) MAURILIO SCHAFER Encounter Template Text not used by [place] Plan of Treatment: Future Appointments (+ 6 months) and Future Tests (+/- 45 days) The Plan of Treatment section includes future care activities for the patient from all [place] [facility] This section includes future appointments [...] 27, 2024 08:15 AM AMBULATORY - MEDICINE [facility] Mar 26, 2024 11:00 AM AMBULATORY - NONE [facility] Mar 27, 2024 12:40 PM AMBULATORY - MEDICINE [facility] Apr 10, 2024 10:30 AM AMBULATORY - SURGERY [facility] Apr 22, 2024 10:00 AM AMBULATORY - SURGERY [facility] May 02, 2024 09:00 AM AMBULATORY - NONE [facility] May 06, 2024 03:30 PM AMBULATORY - MEDICINE [facility] May 19, 2024 11:00 AM AMBULATORY - MEDICINE [facility] May 22, 2024 09:30 AM AMBULATORY - SURGERY [facility] May 27, 2024 09:30 AM AMBULATORY - NONE [facility] Jul 11, 2024 02:00 PM AMBULATORY - NONE [facility] Aug 07, 2024 07:30 AM AMBULATORY - NONE [facility] Aug 15, 2024 10:30 AM AMBULATORY - MEDICINE [facility] Active, Pending, and Scheduled Orders This section includes a listing of several types of active, pending, and scheduled orders, including clinic medications orders, diagnostic test orders, procedure orders and consult orders; where the start date of the order is 45 days before the date of the Encounter or 45 days after the date of theEncounter. The data comes from all [place] treatment facilities. Test Date/Time Test Type Test Details Facility Name Jan 15, 2024 12:00 AM Laboratory - Chemistry Order HGA 1C BLOOD SP [facility] Jan 15, 2024 12:00 AM Laboratory - Chemistry Order CBC BLOOD SP [facility] Social History: Smoking Status (Most current) [...] 11:17 AM TOBACCO USE [facility] Apr 07, 2002 02:25 PM CURRENT NON-TOBACC [...] 08:31 AM TOBACCO USE [facility] Advance Directives: All historical and current Section [...] 18, 2018 ADVANCE DIRECTIVE DISCUSSION EMMETT CAMILO [facility] Encounter Notes: All associated encounter notes This section contains the clinical notes associated to the Encounter. Date/Time Encounter Note(s) Provider Source Feb 23, 2024 10:37 AM PHYSICIAN LETTERS: LOCAL TITLE: NO CONTACT LETTER [facility] STANDARD TITLE: PHYSICIAN LETTERS DATE OF NOTE: FEB 23, 2024@10:37 ENTRY DATE: FEB 23, 2024@10:37:59 AUTHOR: MAURILIO SCHAFER COSIGNER: URGENCY: STATUS: COMPLETED [facility] [address] [place] [address] FEB 23, 2024 MAURILIO DUQUE [address] [place] [id number] Dear Maurilio Duque, Thank you for choosing the [facility] as your primary choice for health care. As a partner in your health care, we are attempting to contact you because we have been unsuccessful in reaching you by phone to schedule your clinic appointment. Please call us at [phone], extension [phone] to speak to us regarding setting up a Holter Monitor. Your good health is important to us. Please contact us within 2 weeks from the date of this letter. If we do not hear from you, we will notify your referring provider and a new referral will be required to schedule an appointment. IMPORTANT: Due to COVID-19 we have greatly expanded our telehealth options, please contact the clinic to inquire about scheduling. Sincerely, Maurilio Schafer Medical Sediment Remediation Consultant-MICKEY DUQUE,MAURILIO MANDUJANO [facility]
--- OUTSIDE RECORDS SUMMARY | 2024-11-02 11:56 | XMS_ITS | Encounter Summary ---
Author Name [facility] [place] [facility] [place] Address [address] [place] [address] Care Team Providers Care Wet Wheeler Name Role Phone NATALIO ARZOLA Primary Care Provider Unavail le Insurance Providers: [...] PART B Oct 28, 2001 PART B [id number] Petra DUQUE PATIENT MEDICARE (WNR) MEDICARE (M) PART A Oct 28, 2001 PART A [id number] Petra DUQUE PATIENT MEDICARE (WNR) MEDICARE (M) PART A Oct 28, 2001 PART A [id number] [phone] Petra DUQUE PATIENT Selected Encounter This section includes the information on record at [place] for the Encounter. Date/Time Encounter Type Encounter Description Reason Provider Source Sep 18, 2024 12:20 PM OFFICE O/P EST MOD 30 MIN PULMONARY/CHEST ICD-10-CM J44.9 Chronic obstructive pulmonary disease, unspecified ELAINA PALACIO IHErnie Encounter Template Text not used by [place] Assessments - Encounter Diagnoses This section includes the primary and secondary diagnoses documented for the Encounter. Date/Time Primary/Secondary Diagnosis Diagnosis Name Provider Source Sep 18, 2024 01:11 PM PRIMARY Chronic obstructive pulmonary disease, unspecified ELAINA PALACIO [facility] Plan of Treatment: Future Appointments (+ 6 months) and Future Tests (+/- 45 days) The Plan of Treatment section includes future care activities for the patient [facility] [place] [facility] This section includes future appointments and future orders which are active, pending or scheduled. Future Appointments This section includes appointments that were scheduled to occur 6 months from the date of the Encounter, up to a maximum of 20 appointments. The data comes from all [facility] facilities. Appointment Date/Time Appointment Type Appointme nt Facility Name Sep 22, 2024 11:30 AM AMBULATORY - NONE [facility] Oct 27, 2024 11:15 AM AMBULATORY - MEDICINE [facility] Nov 15, 2024 11:00 AM AMBULATORY - NONE [facility] Nov 17, 2024 01:30 PM AMBULATORY - MEDICINE [facility] Nov 21, 2024 08:30 AM AMBULATORY - MEDICINE [facility] December 16, 2024 01:00 PM AMBULATORY - NONE [facility] Feb 05, 2025 10:00 AM AMBULATORY - SURGERY [facility] Active, Pending, and Scheduled Orders This section includes a listing of several types of active, pending, and scheduled orders, including clinic medications orders, diagnostic test orders, procedure orders and consult orders; where the start date of the order is 45 days before the date of the Encounter or 45 days after the date of theEncounter. The data comes from all [facility]. Test Date/Time Test Type Test Details Facility Name Oct 06, 2024 12:03 PM Consult Order [facility] Cons [employer] Consultant's Choice [facility] Vital Signs: All taken on the encounter date This section contains inpatient and outpatient Vital Signs collected on the date of the Encounter. Date/Time Temperature Pulse Blood Pressure Respiratory Rate SP02 Pain Height Weight Body Mass Index Source Sep 18, 2024 12:34 PM 137/76 [facility] Sep 18, 2024 12:34 PM 97.8 78 141/76 18 98 0 225.4 29 [facility] Social History: Smoking Status (Most current) and Tobacco Use (All prior to encounter date) This section includes the most current, and the historical, smoking and tobacco- related health factors from the [place] facility where the Encounter took place. Current Smoking Status This section includes the most current smoking, or tobacco-related health factor, from the [place] facility where the Encounter took place. Date/Time Current Smoking Status Comment Tristan ity Oct 17, 2023 04:53 PM ORYX ADMIT TOBACCO SCREEN NO [facility] Tobacco Use History This section includes a history of the smoking, or tobacco-related health factors, that were collected on or before the date of the Encounter. The data comes from the [place] facility where the Encounter took place. Date/Time Smoking Status/Tobacco Use Comment F acility Oct 17, 2023 03:00 PM ORYX ADMIT TOBACCO SCREEN NO [facility] Dec 31, 2021 03:07 PM ORYX ADMIT TOBACCO SCREEN NO [facility] Apr 06, 2017 11:33 PM QUIT TOBACCO >7 YEARS AGO [facility] Mar 21, 2017 04:29 AM QUIT TOBACCO >7 YEARS AGO [facility] Jan 20, 2014 09:56 AM QUIT TOBACCO >7 YEARS AGO [facility] Jan 02, 2013 01:23 PM QUIT TOBACCO >7 YEARS AGO [facility] May 25, 2010 01:35 PM LIFETIME NON-USER OF TOBACCO [facility] Aug 17, 2009 01:04 PM QUIT TOBACCO >12 M O & <7 YRS AGO [facility] Sep 17, 2008 01:34 PM QUIT TOBACCO >12 M O & <7 YRS AGO [facility] Sep 20, 2006 10:57 AM QUIT TOBACCO >12 M O & <7 YRS AGO [facility] Jun 05, 2006 10:49 AM CURRENT NON-TOBACC O USER-HX OF USE [facility] Jun 05, 2006 10:49 AM TOBACCO TERMINATION STAGE [facility] Jul 14, 2005 11:00 AM CURRENT NON-TOBACC O USER-HX OF USE [facility] Jul 14, 2005 11:00 AM TOBACCO TERMINATION STAGE [facility] Oct 23, 2004 04:56 PM CURRENT NON-TOBACC O USER-HX OF USE [facility] Oct 23, 2004 04:56 PM TOBACCO ACTION STAGE [facility] Apr 07, 2004 10:58 AM CURRENT NON-TOBACC O USER-HX OF USE [facility] Apr 07, 2004 10:58 AM TOBACCO MAINTENANCE STAGE [facility] December 18, 2002 11:17 AM CURRENT TOBACCO USER [facility] December 18, 2002 11:17 AM TOBACCO USE [facility] Apr 07, 2002 02:25 PM CURRENT NON-TOBACC O USER-RECENTLY QUIT quit 3 mo ago [facility] Apr 07, 2002 02:25 PM TOBACCO USE quit 3 mo ago [facility] Nov 19, 2001 10:50 AM CURRENT TOBACCO USER [facility] Jul 16, 2001 08:35 AM CURRENT TOBACCO USER [facility] Jun 18, 2001 08:31 AM CURRENT TOBACCO USER [facility] Jun 18, 2001 08:31 AM TOBACCO USE [facility] Advance Directives: All historical and current Section Date Range: From patient's date of to the date document was created. This section includes ALL of a patient's completed or amended [place] Advance and Rescinded Directives. The entries below indicate that a directive exists for the patient, but an actual copy is not included with this document. The data comes from all [place] facilities. Date Advance Directives Provider Source Feb 18, 2018 ADVANCE DIRECTIVE DISCUSSION EMMETT [facility] Encounter Notes: All associated encounter notes This section contains the clinical notes associated to the Encounter. Date/Time Encounter Note(s) Provider Source Sep 18, 2024 12:31 PM PULMONARY OUTPATIE NT NOTE: LOCAL TITLE: PULMONARY OUTPATIENT FOLLOW UP ST STANDARD TITLE: PULMONARY OUTPATIENT NOTE DATE OF NOTE: SEP 18, 2024@12:31 ENTRY DATE: SEP 18, 2024@12:31:33 AUTHOR: JENNIFER PALACIO COSIGNER: URGENCY: STATUS: COMPLETED Pulmonary outpatient follow up A/P: 1. COPD vs asthma? No obstruction on PFTs. Some features in hx would be more c/w asthma like triggers. No atopy or eosinophilia. Unclear pattern but benefits intermittently from DONYA. CARP consult completed but he has managed to stay active on his own and does not feel this would not add anything to his care. He never received Stiolto and has done ok with albuterol alone. Discussed options of starting now vs watching how he does. He prefers to remain off maintenance inhalers. Ok to keep DONYA. 2. Immunizations--UTD Completed flu, covid, tdap, pcv-20 RTC 6 months ordered per 's request Dr. Arzola-- mentioned dizziness spells. The way he described them today is more consistent with vertigo than presyncopal episodes. He also mentioned lesion in his L ear that continues to give him trouble. It is scabbed over today but sounds like comedone. He wonders about dermatology consult? ~~~~~~~~~~~~~~~~~~~~~~~~~~~~ ~~~~~~~~~~~~~~~~~~~~~~~~~~~~ ~~~~~~~~~~~~~~~~~~~~~ Aug 2024: returns for follow up. He is using all inhalers as directed. Did not receive Stiolto. Using albuterol bid. He is able to walk 2 miles once or twice daily depending on hoe he is feeling. He walks his dog. He can do this in 20-25 minutes. No SOB then. Has SOB after 2.5 flights of stairs. He gets sob sometimes doing something less strenous but his main issue has been recurrent dizzy spells that cause imbalance. A few weeks ago he fell against a wall and had minor trauma to his arm (skin abrasion). He describes room spinning. Not associated w changes in position or head turning. No n/v. No LOC. Had cardiac work up including stress test and holter w/o abnormalities that would explain that. Since last seen, no AECOPD, no hospitalizations for breathing problems, ER/UC visits, need for steroids, abx or other tx for pulmonary infections. Feb 2024 HPI: feels well. Since last [...] strong perfume and smoke aggravate him Exam 98% RA RRR CTA b/l without wheezing or crackles Data - PFTs October 2023: suggestive for [...] JENNIFER PALACIO MD, MPH Interventional Pulmonology Signed: 09/18/2024 13:10 Receipt Acknowledged By: 09/24/2024 09:58 /radha/ NATALIO ARZOLA MD STAFF PHYSICIAN JENNIFER PALACIO [facility]
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
== END 2024-11-02 13:45 | disposition home or self-care (01) ==
PROVIDERS: Emergency Provider Family Medicine
DX: S73.102A Unspecified sprain of left hip, initial encounter (principal); V89.2XXA Person injured in unspecified motor-vehicle accident, traffic, initial encounter
CPT/HCPCS: 73502; 99283